=== PATIENT | female | born 1975 | race Caucasian/White ===

== ENCOUNTER → 2018-12-17 13:59 | Outpatient (CLI) | payer OTHER, SELFPAY ==
[2017-08-31 16:52] VITALS: BMI 20.5
[2018-12-17 15:54] LABS: Absolute Lymphocyte Count 2.11 X10^3/ul (0.83-4.51); Absolute Neutrophil Count 2.8 X10^3/uL (2.0-7.7); Basophil# 0.03 X10^3/uL; Basophil% 0.5 % (0-1); Eosinophil# 0.14 X10^3/uL; Eosinophils% 2.6 % (0-5); Hematocrit 44.5 % (37-47); Hemoglobin 14.2 g/dl (12.0-15.0); Lymphocyte # 2.11 X10^3/ul (4.0); Lymphocyte % 38.5 % (19-41); Mean Corp Hgb Conc 31.9 g/gl (32-36); Mean Corpuscular Hgb 28.9 pg (27.0-32.0); Mean Corpuscular Volume 90.4 fL (81-99); Mean Platelet Vol. 10.7 fl (6.2-12.0); Monocyte# 0.39 X10^3/uL; Monocyte% 7.1 % (0-10); Neutrophil % 51.1 % (47-70); POSITIVE COUNT NO; POSITIVE DIFFERENTIAL NO; POSITIVE MORPHOLOGY NO; Platelet Count 260 K/mm3 (150-450); RBC Distribution Width CV 13.3 % (11.6-14.6); Red Blood Count 4.92 M/mm3 (4.2-5.4); White Blood Count 5.5 K/mm3 (4.4-11.0)
[2018-12-17 16:16] LABS: Anion Gap 11 (5-15); BUN 16 mg/dL (7-18); BUN/Creat Ratio 16.5 RATIO (10-20); Calcium,Total 8.6 mg/dL (8.5-10.1); Chloride 114 mmol/L (98-107); Creatinine, Serum 0.97 mg/dL (0.55-1.02); EST Glomerular Filtration Rate 66 mL/min (>60); Est Glom Filt Rate - Afr Amer 80 mL/min (>60); Glucose 89 mg/dL (74-106); Potassium 3.9 mmol/L (3.5-5.1); Prothrombin Time (Protime)PT. 12.5 SECONDS (11.7-14.9); Sodium Level 143 mmol/L (136-145)
== END ==
PROVIDERS: Family Provider Family Medicine; PCP Family Medicine; Referring Provider Psychiatry & Neurology Neurology; Visit Provider Psychiatry & Neurology Neurology
DX: G43.111 Migraine with aura, intractable, with status migrainosus (principal)
CPT/HCPCS: 36415; 80048; 85025; 85610

== ENCOUNTER 2018-12-25 19:43 | Emergency (ER) | payer OTHER, SELFPAY ==
[2018-12-25 19:44] VITALS: BP 129/76; PULSE 64; RESP 15; TEMP 37; O2SAT 100; BMI 20.2
--- NOTE | 2018-12-25 21:41 | ED.VISSUMM ---
- ER Visit Summary Date of Service: 12/25/18 Chief Complaint: [Rash] History of Present Illness: The patient is a 43 F [presents the emergency department complaint of a rash that started yesterday. Patient states that 2 days ago she had a port placed in her right chest because she gets infusions for her migraines on a monthly basis and she has poor veins. Patient started to notice faint erythematous rash to the left side of her neck and also between her breasts and underneath both breasts. Area is slightly pruritic. Patient is not noticed any rash or erythema or warmth around the port site. She denies any new soaps or detergents. Patient does not believe that she received any type of antibiotics. Patient states that she did receive fentanyl and Versed for sedation as well as a dose of Valium.] Physical Examination: [HEENT-PERRLA, EOMI. Cranial nerves II through XII grossly intact. TMs clear. Mucous membranes moist. No adenopathy. Cardiovascular-regular rate and rhythm without murmur or ectopy Lungs-clear to auscultation, chest wall stable without crepitus or subcu emphysema Abdomen-normoactive bowel sounds, soft, nontender, no rebound or rigidity, no peritoneal signs. Skin exam-in her right chest there is a recent port that has been placed without evidence of infection. There is no erythema or warmth surrounding the port. Patient does have a fine erythematous macular rash between the breasts and underneath both breasts. Patient also has a similar appearing rash to the left posterior neck. The rash is not present on the extremities or her back. Extremities-intact ?4, normal range of motion, normal pulses, atraumatic] Test Results: [None indicated] Emergency Department Course and Treatment: [This point I do not feel any treatments indicated. I suspect she may have a contact dermatitis that may be related to the cleansing prep that they used on the skin or possibly adhesive from the draping. I am not convinced this is a drug eruption rash. There is no evidence of cellulitis.] Treatment Plan: [Advised patient using Benadryl for itching and following up with primary care physician within next 5-7 days.] Disposition: [Discharged home in stable condition] Impression: [Contact dermatitis] This note was generated with [employer]Echelleation software. It may contain incorrect words, spelling, and punctuation that were not noted in review of the chart prior to signing ED Disposition - Plan for ED Patient: Referrals: Nikky Pillai MD [Primary Care Provider] -
--- NOTE | 2018-12-25 21:45 | ED.DEP ---
ED Disposition - Plan for ED Patient: Instructions: ED Dermatitis Contact Referrals: Nikky Pillai MD [Primary Care Provider] - 5-7 Days
== END 2018-12-25 21:55 | disposition home or self-care (01) ==
PROVIDERS: Emergency Provider Emergency Medicine; Family Provider Family Medicine; PCP Family Medicine
DX: L25.9 Unspecified contact dermatitis, unspecified cause (principal); G43.909 Migraine, unspecified, not intractable, without status migrainosus; Z79.82 Long term (current) use of aspirin; Z79.891 Long term (current) use of opiate analgesic; Z79.899 Other long term (current) drug therapy
CPT/HCPCS: 99282

== ENCOUNTER 2019-01-09 14:37 | Emergency (ER) | payer OTHER, SELFPAY ==
[2019-01-09 14:37] VITALS: BP 122/81; PULSE 93; RESP 16; TEMP 37.2; O2SAT 95; BMI 19.7
--- NOTE | 2019-01-09 15:17 | ED.VIS.GEN ---
History of Present Illness Chief Complaint: Abd Pain Detail of Chief Complaint: Rectal pain that radiates into the pelvis/abdomen Informant: Patient Onset: Yesterday Context: Sudden Onset Timing: Continuous Quality: Pain Location: Rectal and lower abdomen Current Severity: Mild Maximum Severity: Moderate Worsened by: Standing upright Relieved by: Improves in position Associated Symptoms: None Narrative: Patient is a 43-year-old woman whose last normal menstrual period was December 27 - December 31, which is normal for her. She has no symptoms of . She states she has had 3 loose stools a day for approximately 2 months. She has not noted blood or mucus. She denies fever, chills or night sweats. Denies weight gain or weight loss. She denies dysuria, frequency, urgency or hematuria. She does have history of ovarian cyst. There is no history of ectopic or endometriosis. There is no history of trauma. She denies hematemesis, melena hematochezia. She denies history of hemorrhoids. There is a family history of ulcerative colitis, father. There is no radiation to the shoulders, back or flank. There is no radiation downward. She denies any saddle paresthesia. Prior similar symptoms: No Recent Illness/Hospitalization: No - Past Medical History (1) Choledocholithiasis Status: Acute (2) Cholelithiasis Status: Acute (3) History of kidney stones Status: Chronic (4) Migraine headache Status: Chronic Past Medical History - Allergies and Home Meds Allergies/Adverse Reactions: Allergies acetaminophen [From Vicodin] Adverse Reaction (Verified 01/09/19 14:39) Other erythromycin base [Erythromycin Base] Adverse Reaction (Verified 01/09/19 14:39) Nausea hydrocodone bitartrate [From Vicodin] Adverse Reaction (Verified 01/09/19 14:39) Other Primary Care Physician: Nikky Pillai MD [Primary Care Provider] - Prior records reviewed: Yes Surgical History: cholecystectomy, - - Tubal ligation, surgical removal of left kidney stone. Lives: Spouse/ Significant Other Smoking Status: Never smoker Drugs: None - Family History Maternal Family History: Reports: No pertinent history Paternal Family History: Reports: No pertinent history Review of Systems General: Denies: Chills, Fever, Malaise, Sweats, Weight loss Eyes: Denies: Visual changes - bilaterally, Blurred Vision - bilaterally, Diplopia ENT: Denies: Rhinorrhea, Sore throat Cardiovascular: Denies: Chest pain, Palpitations Respiratory: Denies: Dyspnea, Cough, Dyspnea on exertion Gastrointestinal: Reports: Abdominal pain, Diarrhea - 3 loose stools per day for 2-3 months. Denies: Nausea, Vomiting, Constipation, Melena, Hematochezia Genitourinary: Denies: Dysuria, Hematuria, Frequency Musculoskeletal: Denies: Back pain, Extremity Pain Skin: Denies: Rash, Wounds Neurological: Denies: Headache, Weakness, Numbness Hematologic: Denies: Easy bruising, Easy bleeding Physical Exam Vital Signs/Narrative: Vital Signs Temp Pulse Resp BP Pulse Ox 01/09/19 14:37 98.9 F 93 16 122/81 H 95 General: Well nourished, Well developed, No Acute Distress Head: Normocephalic, Atraumatic Eyes: Perrl, EOMI ENT: Moist mucous membranes, No rhinorrhea Neck: Supple, Nontender Cardiovascular: Regular rate, Regular rhythm, No murmurs Respiratory: No distress, CTA bilaterally, Chest nontender Abdomen: Soft, Nontender, Nondistended, Normal bowel sounds Rectal: Tenderness - Mild discomfort. There is no fissures, fistulas or hemorrhoids noted. Material in vault was brown watery without mucus or blood. There is no palpable masses or irregularity. Back: Nontender, Normal Inspection. Negative for: CVA tenderness Extremities: Nontender, No edema Skin: Normal color, No rash Neurological: Alert, Oriented x3, Cranial nerves II-XII grossly intact, Normal Strength, Normal Sensation Psychological: Normal affect, Normal Mood Diagnostic/Tx/Re-eval Impressions Abdomen/Pelvis CT 01/09/19 16:54 IMPRESSION: Mild nonspecific dilatation of small bowel and colon to the level of the rectum with a gas-filled rectosigmoid colon and semisolid stool present throughout most of the colon. Negative for wall thickening. Negative for obstructing lesion. Negative for diverticulosis or other inflammatory changes. A normal appendix is identified. Negative for rectal mass or fluid collection. Normal kidneys bilaterally and bladder. Probably status post cholecystectomy with moderate compensatory dilatation of the common bile duct. Uterus tilted to the left. Negative for pelvic mass or free fluid of the pelvis. Electronically Signed: Aubree Devries MD at 19:05 EDT , Service support , 01/09/19 16:54 Abdomen/Pelvis WITH Contrast [CT] Stat Laboratory Results 01/09/19 01/09/19 01/09/19 15:40 15:40 15:40 WBC 5.5 RBC 4.14 L Hgb 12.3 Hct 36.8 L MCV 88.9 MCH 29.7 MCHC 33.4 RDW 13.7 RDW Differential 44.8 H Plt Count 165 MPV 9.8 Immature Gran % (Auto) 0.000 Neut % (Auto) 53.3 Lymph % (Auto) 34.4 [place] % (Auto) 8.4 Eos % (Auto) 3.5 Baso % (Auto) 0.4 Absolute Neuts (auto) 2.9 Absolute Lymphs (auto) 1.89 Total Counted Not Reportable Sodium 144 Potassium 3.7 Chloride 115 H Carbon Dioxide 21.0 Anion Gap 8 BUN 17 Creatinine 0.92 Estim Creat Clear Calc 60.98 Est GFR (MDRD) Af Amer 86 Est GFR (MDRD) Non-Af 71 BUN/Creatinine Ratio 18.5 Glucose 82 Calcium 8.7 Urine Color Yellow Urine Clarity Cloudy Urine pH 8.0 Ur Specific [place] 1.015 Urine Protein Negative Urine Glucose (UA) Normal Urine Ketones Negative Urine Occult Blood Negative Urine Nitrite Negative Urine Bilirubin Negative Urine Urobilinogen Normal Ur Leukocyte Esterase Negative Urine RBC 0 SEEN Urine WBC 0 SEEN Ur Squamous Epith Cells 0 SEEN Urine Bacteria 2+ Urine Mucus 0 SEEN Macro is negative for leukoesterase and nitrites and micro is negative for WBCs. Therefore will not treat for UTI. - Medical Decision Making Patient has no alarming symptoms. Will obtain BMP and CBC to evaluate H&H, white count and renal function in the event a CT of the abdomen/pelvis is required or needed to evaluate patient's symptoms. She did receive Bentyl for her discomfort. I was informed on melter assistant film the patient has significant amount of gas throughout the small bowel. Abdomen was added to the pelvis. There is significant amount of gas with no evidence of obstruction, inflammatory changes. The appendix was seen and normal. There is no fluid in the pelvis. Since patient reports diarrhea for 2-3 months she will need to follow-up with gastroneurologist for colonoscopy. ED Disposition - Plan for ED Patient: Disposition: Home or Assisted Living Diagnosis: Abdominal pain, acute, bilateral lower quadrant, Chronic diarrhea of unknown origin, Bacteria in urine Instructions: ED Abdominal Pain Unkn Cause Prescriptions: Dicyclomine HCl [Bentyl] 20 mg PO TIDAC #20 cap Referrals: Nikky Pillai MD [Primary Care Provider] - 5-7 Days Additional Instructions: You need to follow-up with your primary care doctor for referral to business services tech or physician who performs colonoscopy to evaluate your chronic diarrhea. The cause of your pain is unknown.
[2019-01-09] MEDS: Dicyclomine 10 MG Capsule 20 MG PO (15:20)
--- NOTE | 2019-01-09 15:21 | ED.DCSUM_ITS ---
History of Present Illness Chief Complaint: Abd Pain Detail of Chief Complaint: Rectal pain that radiates into the pelvis/abdomen Informant: Patient Onset: Yesterday Context: Sudden Onset Timing: Continuous Quality: Pain Location: Rectal and lower abdomen Current Severity: Mild Maximum Severity: Moderate Worsened by: Standing upright Relieved by: Improves in position Associated Symptoms: None Narrative: Patient is a 43-year-old woman whose last normal menstrual period was December 27 - December 31, which is normal for her. She has no symptoms of . She states she has had 3 loose stools a day for approximately 2 months. She has not noted blood or mucus. She denies fever, chills or night sweats. Denies weight gain or weight loss. She denies dysuria, frequency, urgency or hematuria. She does have history of ovarian cyst. There is no history of ectopic or endometriosis. There is no history of trauma. She denies hematemesis, melena hematochezia. She denies history of hemorrhoids. There is a family history of ulcerative colitis, father. There is no radiation to the shoulders, back or flank. There is no radiation downward. She denies any saddle paresthesia. Prior similar symptoms: No Recent Illness/Hospitalization: No - Past Medical History (1) Choledocholithiasis Status: Acute (2) Cholelithiasis Status: Acute (3) History of kidney stones Status: Chronic (4) Migraine headache Status: Chronic Past Medical History - Allergies and Home Meds Allergies/Adverse Reactions: Allergies acetaminophen [From Vicodin] Adverse Reaction (Verified 01/09/19 14:39) Other erythromycin base [Erythromycin Base] Adverse Reaction (Verified 01/09/19 14:39) Nausea hydrocodone bitartrate [From Vicodin] Adverse Reaction (Verified 01/09/19 14:39) Other Primary Care Physician: Nikky Pillai MD [Primary Care Provider] - Prior records reviewed: Yes Surgical History: cholecystectomy, - - Tubal ligation, surgical removal of left kidney stone. Lives: Spouse/ Significant Other Smoking Status: Never smoker Drugs: None - Family History Maternal Family History: Reports: No pertinent history Paternal Family History: Reports: No pertinent history Review of Systems General: Denies: Chills, Fever, Malaise, Sweats, Weight loss Eyes: Denies: Visual changes - bilaterally, Blurred Vision - bilaterally, Diplopia ENT: Denies: Rhinorrhea, Sore throat Cardiovascular: Denies: Chest pain, Palpitations Respiratory: Denies: Dyspnea, Cough, Dyspnea on exertion Gastrointestinal: Reports: Abdominal pain, Diarrhea - 3 loose stools per day for 2-3 months. Denies: Nausea, Vomiting, Constipation, Melena, Hematochezia Genitourinary: Denies: Dysuria, Hematuria, Frequency Musculoskeletal: Denies: Back pain, Extremity Pain Skin: Denies: Rash, Wounds Neurological: Denies: Headache, Weakness, Numbness Hematologic: Denies: Easy bruising, Easy bleeding Physical Exam Vital Signs/Narrative: Vital Signs Temp Pulse Resp BP Pulse Ox 01/09/19 14:37 98.9 F 93 16 122/81 H 95 General: Well nourished, Well developed, No Acute Distress Head: Normocephalic, Atraumatic Eyes: Perrl, EOMI ENT: Moist mucous membranes, No rhinorrhea Neck: Supple, Nontender Cardiovascular: Regular rate, Regular rhythm, No murmurs Respiratory: No distress, CTA bilaterally, Chest nontender Abdomen: Soft, Nontender, Nondistended, Normal bowel sounds Rectal: Tenderness - Mild discomfort. There is no fissures, fistulas or hemorrhoids noted. Material in vault was brown watery without mucus or blood. There is no palpable masses or irregularity. Back: Nontender, Normal Inspection. Negative for: CVA tenderness Extremities: Nontender, No edema Skin: Normal color, No rash Neurological: Alert, Oriented x3, Cranial nerves II-XII grossly intact, Normal Strength, Normal Sensation Psychological: Normal affect, Normal Mood Diagnostic/Tx/Re-eval Impressions Abdomen/Pelvis CT 01/09/19 16:54 IMPRESSION: Mild nonspecific dilatation of small bowel and colon to the level of the rectum with a gas-filled rectosigmoid colon and semisolid stool present throughout most of the colon. Negative for wall thickening. Negative for obstructing lesion. Negative for diverticulosis or other inflammatory changes. A normal appendix is identified. Negative for rectal mass or fluid collection. Normal kidneys bilaterally and bladder. Probably status post cholecystectomy with moderate compensatory dilatation of the common bile duct. Uterus tilted to the left. Negative for pelvic mass or free fluid of the pelvis. Electronically Signed: Aubree Devries MD at 19:05 EDT , Service support , 01/09/19 16:54 Abdomen/Pelvis WITH Contrast [CT] Stat Laboratory Results 01/09/19 01/09/19 01/09/19 15:40 15:40 15:40 WBC 5.5 RBC 4.14 L Hgb 12.3 Hct 36.8 L MCV 88.9 MCH 29.7 MCHC 33.4 RDW 13.7 RDW Differential 44.8 H Plt Count 165 MPV 9.8 Immature Gran % (Auto) 0.000 Neut % (Auto) 53.3 Lymph % (Auto) 34.4 [place] % (Auto) 8.4 Eos % (Auto) 3.5 Baso % (Auto) 0.4 Absolute Neuts (auto) 2.9 Absolute Lymphs (auto) 1.89 Total Counted Not Reportable Sodium 144 Potassium 3.7 Chloride 115 H Carbon Dioxide 21.0 Anion Gap 8 BUN 17 Creatinine 0.92 Estim Creat Clear Calc 60.98 Est GFR (MDRD) Af Amer 86 Est GFR (MDRD) Non-Af 71 BUN/Creatinine Ratio 18.5 Glucose 82 Calcium 8.7 Urine Color Yellow Urine Clarity Cloudy Urine pH 8.0 Ur Specific [place] 1.015 Urine Protein Negative Urine Glucose (UA) Normal Urine Ketones Negative Urine Occult Blood Negative Urine Nitrite Negative Urine Bilirubin Negative Urine Urobilinogen Normal Ur Leukocyte Esterase Negative Urine RBC 0 SEEN Urine WBC 0 SEEN Ur Squamous Epith Cells 0 SEEN Urine Bacteria 2+ Urine Mucus 0 SEEN Macro is negative for leukoesterase and nitrites and micro is negative for WBCs. Therefore will not treat for UTI. - Medical Decision Making Patient has no alarming symptoms. Will obtain BMP and CBC to evaluate H&H, white count and renal function in the event a CT of the abdomen/pelvis is required or needed to evaluate patient's symptoms. She did receive Bentyl for her discomfort. I was informed on imaging analyst film the patient has significant amount of gas throughout the small bowel. Abdomen was added to the pelvis. There is significant amount of gas with no evidence of obstruction, inflammatory changes. The appendix was seen and normal. There is no fluid in the pelvis. Since patient reports diarrhea for 2-3 months she will need to follow-up with gastroneurologist for colonoscopy. ED Disposition - Plan for ED Patient: Disposition: Home or Assisted Living Diagnosis: Abdominal pain, acute, bilateral lower quadrant, Chronic diarrhea of unknown origin, Bacteria in urine Instructions: ED Abdominal Pain Unkn Cause Prescriptions: Dicyclomine HCl [Bentyl] 20 mg PO TIDAC #20 cap Referrals: Nikky Pillai MD [Primary Care Provider] - 5-7 Days Additional Instructions: You need to follow-up with your primary care doctor for referral to process safety engineer or physician who performs colonoscopy to evaluate your chroni c diarrhea. The cause of your pain is unknown.
[2019-01-09 15:55] LABS: Absolute Lymphocyte Count 1.89 X10^3/ul (0.83-4.51); Absolute Neutrophil Count 2.9 X10^3/uL (2.0-7.7); Basophil# 0.02 X10^3/uL; Basophil% 0.4 % (0-1); Eosinophil# 0.19 X10^3/uL; Eosinophils% 3.5 % (0-5); Hematocrit 36.8 % (37-47); Hemoglobin 12.3 g/dl (12.0-15.0); Lymphocyte # 1.89 X10^3/ul (4.0); Lymphocyte % 34.4 % (19-41); Mean Corp Hgb Conc 33.4 g/gl (32-36); Mean Corpuscular Hgb 29.7 pg (27.0-32.0); Mean Corpuscular Volume 88.9 fL (81-99); Mean Platelet Vol. 9.8 fl (6.2-12.0); Monocyte# 0.46 X10^3/uL; Monocyte% 8.4 % (0-10); Neutrophil # 2.93 X10^3/uL (2.7-7.7); Neutrophil % 53.3 % (47-70); POSITIVE COUNT NO; POSITIVE DIFFERENTIAL NO; POSITIVE MORPHOLOGY NO; Platelet Count 165 K/mm3 (150-450); RBC Distribution Width CV 13.7 % (11.6-14.6); RBC Distribution Width SD 44.8 fl (35.1-43.9); Red Blood Count 4.14 M/mm3 (4.2-5.4); White Blood Count 5.5 K/mm3 (4.4-11.0)
[2019-01-09 16:12] LABS: Mucous, Urine 0 SEEN /hpf (<or=2+); Red Blood Cells-Urine 0 SEEN /hpf (0-5); Squamous Epithelial Cells - UA 0 SEEN /hpf (5-10); White Blood Cells 0 SEEN /hpf (0-5)
[2019-01-09 16:14] LABS: Color, Urine Yellow (Yellow); Glucose, Dipstick Normal (Normal); Ketone-Dipstick Negative (Negative); Leukocyte Esterase-Dipstick Negative /ul (Negative); Nitrite-Dipstick Negative (Negative); Occult Blood-Urine Negative /ul (Negative); Protein-Dipstick Negative (Negative); Specific Gravity, Urine 1.015 (1.002-1.030); Urine Bilirubin Dipstick Negative (Negative); Urine Clarity Cloudy (Clear); Urine Urobilinogen Normal (Normal)
[2019-01-09 16:21] LABS: Anion Gap 8 (5-15); BUN 17 mg/dL (7-18); BUN/Creat Ratio 18.5 RATIO (10-20); Bacteria 2+ /hpf (None Seen); Calcium,Total 8.7 mg/dL (8.5-10.1); Chloride 115 mmol/L (98-107); Creatinine, Serum 0.92 mg/dL (0.55-1.02); EST Glomerular Filtration Rate 71 mL/min (>60); Est Glom Filt Rate - Afr Amer 86 mL/min (>60); Estimated Creatinine Clearance 60.98 ml/min; Glucose 82 mg/dL (74-106); Potassium 3.7 mmol/L (3.5-5.1); Sodium Level 144 mmol/L (136-145)
[2019-01-09 16:47] VITALS: BP 99/66; PULSE 94; O2SAT 93
--- NOTE | 2019-01-09 16:54 | CT_ITS ---
STUDY: CT ABDOMEN AND PELVIS WITH CONTRAST REASON FOR EXAM: Female, 43 years old. Rectal pain and tenderness RADIATION DOSAGE (If Supplied By Facility): CTDIvol = ( 7.06 ) mGy, DLP = ( 345.26 ) mGycm TECHNIQUE: Transaxial images were obtained from the dome of the diaphragm to the symphysis pubis without oral contrast. Isovue 300 100 IV was administered. Sagittal and coronal images were reconstructed. Individualized dose optimization techniques were used for this CT. COMPARISON: Prior abdomen and pelvic CT exam of July 24, 2016 FINDINGS: Stable minimal nodule at the lateral left lung base. The visualized portions of the heart are within normal limits. Normal liver. Contracted or absent gallbladder. Mildly dilated common bile duct probably status post cholecystectomy. Normal spleen. Normal pancreas. Normal bilateral adrenal glands. Normal right kidney. Normal left kidney. Normal visualized stomach. Mild diffuse dilatation of the small bowel. Mild diffuse dilatation of the colon with gaseous distention of the rectosigmoid colon. Most of the stool in the colon appears semisolid. The appendix is visualized and appears normal. Normal abdominal aorta. Normal inferior vena cava. Normal retroperitoneum. Normal urinary bladder. Uterus tilted to the left. Negative for pelvic mass or free fluid of the pelvis. Normal abdominal wall. Normal osseous structures. CT/Abdomen/Pelvis WITH Contrast IMPRESSION: Mild nonspecific dilatation of small bowel and colon to the level of the rectum with a gas-filled rectosigmoid colon and semisolid stool present throughout most of the colon. Negative for wall thickening. Negative for obstructing lesion. Negative for diverticulosis or other inflammatory changes. A normal appendix is identified. Negative for rectal mass or fluid collection. Normal kidneys bilaterally and bladder. Probably status post cholecystectomy with moderate compensatory dilatation of the common bile duct. Uterus tilted to the left. Negative for pelvic mass or free fluid of the pelvis. Electronically Signed: Aubree Devries MD at 19:05 EDT , Service support ,
[2019-01-09] MEDS: Morphine 4 MG/ML Syringe IV (17:15)
[2019-01-09] MEDS: Ondansetron 4 MG/2 ML Vial IV (17:15)
[2019-01-09 17:20] VITALS: BP 101/72; PULSE 61
[2019-01-09 19:42] VITALS: BP 99/60; PULSE 57; RESP 16
== END 2019-01-09 19:43 | disposition home or self-care (01) ==
PROVIDERS: Emergency Provider Emergency Medicine; Family Provider Family Medicine; PCP Family Medicine
DX: R10.30 Lower abdominal pain, unspecified (principal); R19.7 Diarrhea, unspecified; R82.71 Bacteriuria; G43.909 Migraine, unspecified, not intractable, without status migrainosus; Z87.442 Personal history of urinary calculi; Z79.82 Long term (current) use of aspirin; Z79.891 Long term (current) use of opiate analgesic; Z79.899 Other long term (current) drug therapy
CPT/HCPCS: 36591; 74177; 80048; 81001; 85025; 96374; 96375; 99283; A4216; J2405

== ENCOUNTER 2019-04-16 12:52 | Emergency (ER) | payer OTHER, SELFPAY ==
[2019-04-16 12:53] VITALS: BP 114/70; PULSE 69; RESP 16; TEMP 36.7; O2SAT 99; BMI 19.3
--- NOTE | 2019-04-16 13:08 | CT_ITS ---
STUDY: CT BRAIN WITHOUT CONTRAST REASON FOR EXAM: Female, 43 years old. Migraine RADIATION DOSAGE (If Supplied By Facility): CTDIvol = ( 44.99 ) mGy, DLP = ( 711.75 ) mGycm TECHNIQUE: Transaxial CT imaging of the brain was performed without administration of intravenous contrast material. Individualized dose optimization techniques were used for this CT. COMPARISON: CT 05/11/15. FINDINGS: Normal soft tissue structures. Normal calvarium. Normal size ventricles and extra-axial spaces for the patient's age. Normal white matter tracts of the cerebral hemispheres. Normal basal ganglia and thalami. Normal brainstem. Normal cerebellum. There is no intracranial hemorrhage. There are no findings of an acute ischemic infarction. Normal visualized paranasal sinuses. CT/Brain/Head without Contrast IMPRESSION: Normal unenhanced CT scan of the brain. Electronically Signed: Víctor Tarango, at 14:28 EDT Tel , Service support ,
--- NOTE | 2019-04-16 13:11 | ED.DCSUM_ITS ---
- ER Visit Summary Date of Service: 04/16/19 Chief Complaint: Migraine History of Present Illness: The patient is a 43 F who has a history of migraine that follows with neurology presents to the emergency department with migraine headache. States normally, her headache is behind her right eye. This headache started 2 days ago. She described photophobia, blurry vision, and nausea. She states this is her normal migraine sensation. She was concerned because she also had pain a little bit higher up in her head which she does not normally have. She saw her primary care in the office yesterday. She got Phenergan and Nubain with some improvement but then the headache returned. She denies any trouble speech or swallowing. She denies any weakness. She denies any fevers or chills. Physical Examination: Well-appearing patient is in no acute distress. Head is normocephalic, atraumatic. Pupils equal round reactive, extraocular muscles intact. There is no temporal artery tenderness. There is no vesicular rash. Neck supple. Kernig's and Brudzinski's are negative. Heart regular rate and rhythm. Lungs clear, chest nontender. Abdomen soft, nontender, nondistended. Neuro exam displays no focal or lateralizing deficit. 2+ symmetric lower extremity reflexes. No clonus. No ataxia or gait abnormality. Test Results: [] Emergency Department Course and Treatment: The patient presents with migraine he adache. She states was mildly different because it was involving a larger part of her head. Her neuro exam is reassuring. As she states there was some differences in it, I did obtain CT imaging. This was unremarkable. The patient was treated with fluids, Toradol, Benadryl, Compazine. She had some improvement in her headache but was still having persistent headache. I did discuss with her options with her. She was agreeable to Decadron and Depakote. This is currently infusing. Patient is resting comfortably. I do feel that as long she continues to have improvement, the patient can safely be discharged. She is comfortable with this plan of care. Treatment Plan: [] Disposition: Discharge Impression: 1. Migraine headache This note was generated with [employer] software. It may contain incorrect words, spelling, and punctuation that were not noted in review of the chart prior to signing ED Disposition - Plan for ED Patient: Instructions: HEADACHE, Migraine (Classical) Referrals: Nikky Pillai MD [Primary Care Provider] -
[2019-04-16] MEDS: proCHLORPERazine 10 MG/2 ML Vial IV (13:35)
[2019-04-16] MEDS: DiphenhydrAMINE 50 MG/ML Syringe IV (13:35)
[2019-04-16] MEDS: 0.9% Normal Saline 1,000 ML 999 ML IV (13:35)
[2019-04-16] MEDS: Ketorolac 30 MG/ML Syringe IV (13:35)
[2019-04-16] MEDS: dexAMETHasone 10 MG/ML Vial IV (14:34)
[2019-04-16 15:58] VITALS: BP 96/59; PULSE 59; RESP 16; O2SAT 99
== END 2019-04-16 15:59 | disposition home or self-care (01) ==
LOC: ED 13:11
PROVIDERS: Emergency Provider Emergency Medicine; Family Provider Family Medicine; PCP Family Medicine
DX: G43.909 Migraine, unspecified, not intractable, without status migrainosus (principal)
CPT/HCPCS: 70450; 96361; 96365; 96375; 99284; J7030; A4216

== ENCOUNTER 2019-11-11 12:42 | Observation (INO) | payer OTHER, SELFPAY ==
[2019-04-22 09:33] VITALS: BMI 19.3
[2019-11-11 12:42] VITALS: BP 126/89; PULSE 85; RESP 18; TEMP 37.4; O2SAT 97; BMI 19.8
--- NOTE | 2019-11-11 13:06 | ED.DCSUM_ITS ---
History of Present Illness Chief Complaint: Flank Pain Detail of Chief Complaint: Right flank pain Informant: Patient Onset: Weeks Context: Gradual Onset Timing: Waxes and wanes Current Severity: Moderate Maximum Severity: Moderate Narrative: Presents with right flank pain that is been ongoing for the past 2 weeks. She was seen at [place] emergency room 1 week ago. She was found to have a 9 mm right-sided kidney stone. Last weekend she presented to [facility] for continued pain. She was treated in the emergency room and discharged. Patient was seen by Dr. Greene on Friday and is scheduled to have surgery tomorrow. She presents to the ER today due to continued uncontrolled pain. She is currently on Percocet. She is been taking Aleve, last dose was yesterday. - Past Medical History (1) History of kidney stones Status: Chronic (2) Migraine headache Status: Chronic Past Medical History - Allergies and Home Meds Allergies/Adverse Reactions: Allergies erythromycin base [Erythromycin Base] Adverse Reaction (Verified 11/11/19 12:47) Nausea hydrocodone bitartrate [From Vicodin] Adverse Reaction (Verified 11/11/19 12:47) Other Primary Care Physician: Nikky Pillai MD [Primary Care Provider] - Doctors: Dr. Greene Prior records reviewed: Yes Surgical History: cholecystectomy, - - Tubal ligation, surgical removal of left kidney stone. Smoking Status: Never smoker - Family History Maternal Family History: Family History (Last Updated 04/22/19 @ 09:33 by Shandra De La O) Father MVP (mitral valve prolapse) Family History: Reports: No pertinent history Paternal Family History: Family History (Last Updated 04/22/19 @ 09:33 by Shandra De La O) Father MVP (mitral valve prolapse) Family History: Reports: No pertinent history Review of Systems General: Denies: Chills, Fever Eyes: Denies: Visual changes - bilaterally ENT: Denies: Bilateral ear pain Cardiovascular: Denies: Chest pain Respiratory: Denies: Dyspnea Gastrointestinal: Reports: Abdominal pain. Denies: Vomiting Genitourinary: Denies: Dysuria Musculoskeletal: Denies: Extremity Pain Skin: Denies: Rash Neurological: Denies: Headache Allergy: Denies: Uticaria Physical Exam Vital Signs/Narrative: Vital Signs Temp Pulse Resp BP Pulse Ox 11/11/19 12:42 99.4 F H 85 18 126/89 H 97 Inital Vital Signs reviewed: Yes General: Well nourished, Well developed Head: Normocephalic ENT: Moist mucous membranes Neck: Supple Cardiovascular: Regular rate, Regular rhythm Respiratory: No distress, CTA bilaterally Abdomen: Soft, Nontender Back: CVA tenderness Skin: Normal color, No rash Neurological: Alert, Oriented x3 Psychological: Normal affect Diagnostic/Tx/Re-eval 11/11/19 14:05 KUB [Abdomen Single View] [RAD] Stat Laboratory Results 11/11/19 11/11/19 13:25 13:25 WBC 5.1 RBC 4.51 Hgb 13.0 Hct 41.4 MCV 91.8 MCH 28.8 MCHC 31.4 L RDW Std Deviation 42.9 RDW Coeff of Brian 12.9 Plt Count 160 MPV 9.8 Immature Gran % (Auto) 0.200 Neut % (Auto) 58.6 Lymph % (Auto) 31.7 [place] % (Auto) 6.5 Eos % (Auto) 2.4 Baso % (Auto) 0.6 Absolute Neuts (auto) 3.0 Absolute Lymphs (auto) 1.60 Nucleated RBC % 0 Sodium 140 Potassium 3.6 Chloride 114 H Carbon Dioxide 21.0 Anion Gap 5 BUN 14 Creatinine 0.87 Estim Creat Clear Calc 64.22 Est GFR (MDRD) Af Amer 91 Est GFR (MDRD) Non-Af 75 BUN/Creatinine Ratio 16.1 Glucose 82 Calcium 8.5 - Medical Decision Making She was given 4 mg of morphine and 15 mg of Toradol on arrival. She is given IV fluids. KUB reveals significant bowel gas and I am unable to definitely visualize a stone. Lab work is unremarkable. Patient states her pain is un changed. I will speak with Dr. Greene as well as hospitalist for admission for pain control. ED Disposition - Plan for ED Patient: Disposition: Acute Care Hospital [facility] Diagnosis: Right flank pain, Kidney stone on right side Referrals: Nikky Pillai MD [Primary Care Provider] -
[2019-11-11 13:35] LABS: Basophil# 0.03 X10^3/uL; Basophil% 0.6 % (0-1); Eosinophil# 0.12 X10^3/uL; Eosinophils% 2.4 % (0-5); Hematocrit 41.4 % (37-47); Lymphocyte % 31.7 % (19-41); Mean Corp Hgb Conc 31.4 g/dL (32-36); Mean Corpuscular Hgb 28.8 pg (27.0-32.0); Mean Corpuscular Volume 91.8 fL (81-99); Mean Platelet Vol. 9.8 fl (6.2-12.0); Monocyte# 0.33 X10^3/uL; Monocyte% 6.5 % (0-10); NRBC Flagged by Analyzer 0 % (0-5); Neutrophil # 2.96 X10^3/uL (2.7-7.7); Neutrophil % 58.6 % (47-70); Platelet Count 160 K/mm3 (150-450); RBC Distribution Width CV 12.9 % (11.6-14.6); RBC Distribution Width SD 42.9 fl (35.1-43.9); Red Blood Count 4.51 M/mm3 (4.2-5.4); White Blood Count 5.1 K/mm3 (4.4-11.0)
[2019-11-11] MEDS: Ondansetron 4 MG/2 ML Vial IV (13:46)
[2019-11-11] MEDS: Ketorolac 30 MG/ML Syringe 15 MG IV (13:46)
[2019-11-11] MEDS: Morphine 4 MG/ML Syringe IV (13:47)
[2019-11-11 13:49] LABS: Anion Gap 5 (5-15); BUN 14 mg/dL (7-18); BUN/Creat Ratio 16.1 RATIO (10-20); Calcium,Total 8.5 mg/dL (8.5-10.1); Chloride 114 mmol/L (98-107); Creatinine, Serum 0.87 mg/dL (0.55-1.02); EST Glomerular Filtration Rate 75 mL/min (>60); Est Glom Filt Rate - Afr Amer 91 mL/min (>60); Estimated Creatinine Clearance 64.22 ml/min; Glucose 82 mg/dL (74-106); Potassium 3.6 mmol/L (3.5-5.1); Sodium Level 140 mmol/L (136-145)
--- NOTE | 2019-11-11 14:05 | RAD_ITS ---
STUDY: X-RAY - ABDOMEN/PELVIS REASON FOR EXAM: Female, 44 years old. KIDNEY STONES TECHNIQUE: Single AP view of the abdomen / pelvis. COMPARISON: None. FINDINGS: There is a 6.7 mm x 5 mm metallic density overlying the left upper quadrant. A similar-appearing density seen in the left hemipelvis. This most likely is secondary to tubal ligation clips. Gas is seen within nondilated small bowel as well as the colon. There is no demonstrated free abdominal air. The visualized liver, spleen and kidneys are grossly normal in size and morphology. Normal soft tissue structures. Normal visualized osseous structures. RAD/Abdomen Single View IMPRESSION: Metallic density in the left hemipelvis most likely representing tubal ligation clip. A similar appearing density seen in the left upper quadrant. These were not present on prior CT scan abdomen and pelvis dated January 09, 2019. Electronically Signed: Chirag Mock, at 15:08 EST , Service support ,
[2019-11-11 15:53] VITALS: BMI 19.9
--- NOTE | 2019-11-11 16:01 | NURSING ---
ROOM [address] [place] FLANK PAIN
[2019-11-11 16:04] VITALS: PULSE 80; RESP 16; O2SAT 96
[2019-11-11 16:13] VITALS: BMI 19.6
[2019-11-11 16:30] VITALS: BP 102/65; PULSE 63; RESP 16; TEMP 36.8; O2SAT 100
--- NOTE | 2019-11-11 16:34 | HP.PCM_ITS ---
History of Present Illness Date of Admission: 11/11/19 Chief Complaint: Right Flank Pain The patient is a 44 year old F with a PMH as below who presents with right flank pain. She said it started about 2 weeks ago but it first discharge she might of been having her period so she proceeded to go to her neurologist to get her infusion for her migraines however the pain did not resolve and so on Friday she went to [facility] where they did a CT scan and said that she had a kidney stone and that she could go home. The pain was even worse that night and so on Friday night she proceeded to go to [facility] where they told her they did not have a urologist infection prevention coordinator and that she should go home and follow-up as an outpatient. So she followed up with Dr. Greene on Friday who scheduled her for surgery on Friday, however should her pain came back today and was more intense. No repeat CT scan was done since we have access to the report from all normal, her lab work was unremarkable and her vital signs were stable. Past Medical History Past Medical History (Chronic Problems): Chronic Problems (Last Updated 04/22/19 @ 09:32 by Shandra De La O) History of kidney stones (Chronic) Migraine headache (Chronic) Medical History: Medical History (Last Updated 04/22/19 @ 09:32 by Shandra De La O) Migraines G43.909 Recent childbirth Z39.0 Allergies erythromycin base [Erythromycin Base] Adverse Reaction (Verified 11/11/19 12:47) Nausea hydrocodone bitartrate [From Vicodin] Adverse Reaction (Verified 11/11/19 12:47) Other Home Medications: Ambulatory Orders Medication Instructions Recorded Aspirin [Aspirin, Baby] 81 mg PO DAILY@0800 12/25/18 Cholecalciferol (VIT D3) [Vitamin 1,000 units PO DAILY 12/25/18 D3] Clonazepam 1 mg PO QHS 12/25/18 Folic Acid 2 mg PO DAILY 12/25/18 Tizanidine HCl 4 mg PO DAILY PRN PRN 12/25/18 oxycodone-acetaminophen 5 mg-325 1 - 2 tab PO Q4H PRN PRN tab 04/22/19 mg tablet promethazine 25 mg tablet 25 mg PO Q6H PRN PRN tab 04/22/19 topiramate 200 mg tablet 400 mg PO BID 04/22/19 Magnesium Oxide [Magnesium] 500 mg PO BID 11/11/19 Surgical History: Surgical History (Last Updated 04/22/19 @ 09:32 by Shandra De La O) History of cholecystectomy Z90.49 Kidney stones N20.0 Post Placement Surgical History: cholecystectomy, - - Tubal ligation, surgical removal of left kidney stone. 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 Smoking Status: Never smoker Tobacco Use: Non-smoker Alcohol: None Drugs: None - *Family History Maternal Family History: Family History (Last Updated 04/22/19 @ 09:33 by Shandra De La O) Father MVP (mitral valve prolapse) History Items: - - Kidney stones Paternal Family History: Family History (Last Updated 04/22/19 @ 09:33 by Shandra De La O) Father MVP (mitral valve prolapse) History Items: No pertinent history Review of Systems Constitutional: Denies: Chills, Fever, Weight Change HEENT: Denies: Head Aches, Sinus Congestion, Sinus Drainage Cardiovascular: Denies: Chest Pain, Palpitations Respiratory: Denies: Cough, Shortness of breath at rest, Sputum production Gastrointestinal: Denies: Abdominal Pain, Nausea, Vomiting Genitourinary: Reports: - - Right CVA tenderness. Denies: Dysuria Musculoskeletal: Denies: Joint Pain, Joint Tenderness Skin: Denies: Rash, Wounds Neurological: Denies: Numbness, Tingling, Focal weakness Psychiatric: Denies: Anxiety, Depression Hematologic/ Lymphatic: Denies: Easy Bruising, Easy Bleeding VTE Information - Inpt Only VTE Present on Admission: No Patient Problems: Active and Suspected Problems (Last Updated 04/22/19 @ 09:32 by Shandra De La O) Right flank pain (Acute) Kidney stone on right side (Acute) - Physical Exam Vitals/I&O's: Vital Signs Temp Pulse Resp BP Pulse Ox 99.4 F H 80 16 126/89 H 96 11/11/19 12:42 11/11/19 16:04 11/11/19 16:04 11/11/19 12:42 11/11/19 16:04 Oxygen Delivery Method Room Air Weight: 107 lb 9.369 oz Body Mass Index (BMI) 19.6 General: Alert, Oriented x3, Cooperative, No apparent distress HEENT: Atraumatic, PERRLA, EOMI, Normocephalic Oral: Moist Mucosa Neck: Supple, No JVD Lungs: Clear to auscultation, Normal air movement, No rhonchi, No wheeze, No rales Cardiovascular: Regular rate, Regular Rhythm, Normal S1, Normal S2, No murmurs Abdomen: Soft, Non Tender, Non-Distended, No Hepato-splenomegaly, - - Right- sided CVA tenderness Extremities: No edema, Capillary Refill Less than 3 Seconds Skin: No rashes, No breakdown Neurological: Neuro grossly intact, Sensory exam intact to light touch and pain Psych/Mental Status: Normal Affect, Appropriate Laboratory Results 11/11/19 13:25: WBC 5.1, RBC 4.51, Hgb 13.0, Hct 41.4, MCV 91.8, MCH 28.8, MCHC 31.4 L, RDW Std Deviation 42.9, RDW Coeff of Brian 12.9, Plt Count 160, MPV 9.8, Immature Gran % (Auto) 0.200, Neut % (Auto) 58.6, Lymph % (Auto) 31.7, [place] % (Auto) 6.5, Eos % (Auto) 2.4, Baso % (Auto) 0.6, Absolute Neuts (auto) 3.0, Absolute Lymphs (auto) 1.60, Nucleated RBC % 0 11/11/19 13:25: Sodium 140, Potassium 3.6, Chloride 114 H, Carbon Dioxide 21.0, Anion Gap 5, BUN 14, Creatinine 0.87, Estim Creat Clear Calc 64.22, Est GFR (MDRD) Af Amer 91, Est GFR (MDRD) Non-Af 75, BUN/Creatinine Ratio 16.1, Glucose 82, Calcium 8.5 Current Medications Heparin Sodium (Beef Lung) () 50 units IV UD PRN PRN Reason: Port-a-Cath (VAD)Heparin Flush Sodium Chloride () 1,000 mls @ 100 mls/hr IV .Q10H DADA Ketorolac Tromethamine (Toradol) 30 mg IV Q6H PRN PRN PRN Reason: Pain Score 1-10/10 Stop: 11/16/19 16:20 Ketorolac Tromethamine (Toradol) 15 mg IV X1 ONE Stop: 11/11/19 16:25 Ondansetron HCl (Zofran) 4 mg IV Q8H PRN PRN PRN Reason: NAUSEA/VOMITING Sodium Chloride () 10 - 40 ml IV UD PRN PRN Reason: Port-a-Cath (VAD) Flush Sodium Chloride (0.9% Nacl (Sterile) Posiflush) 10 - 40 ml IV UD PRN PRN Reason: Port access or dressing change Assessment/Plan All Active Problems (Last Updated 04/22/19 @ 09:32 by Shandra De La O) Right flank pain (Acute) Kidney stone on right side (Acute) Elevated liver enzymes (Acute) Choledocholithiasis (Acute) Cholelithiasis (Acute) 1. Right nephrolithiasis with a 9 mm stone at the UPJ -Consult to urology for procedure in the morning -Continue with IV fluids -Toradol 30 mg IV every 6 as needed for pain control -She has had kidney stones in the past 2. Migraines -She sees a neurologist in [place] where she gets infusions as well as Topamax -Her migraines are under decent control at the moment, her last infusions were last week -Continue with tizanidine 3. Anxiety -Continue with Klonopin at night -Stable DVT: Ambulation Code Visit OBSV E&M: 38700 Initial observation care L2
[2019-11-11] MEDS: Ketorolac 15 MG/ML Vial IV (17:18)
[2019-11-11] MEDS: 0.9% Saline Lock 10 ML Syringe IV (17:18)
[2019-11-11] MEDS: 0.9% Normal Saline 1,000 ML 100 ML IV (17:18)
[2019-11-11 20:32] VITALS: BP 110/65; PULSE 58; RESP 16; TEMP 37.1; O2SAT 100
[2019-11-11] MEDS: clonazePAM 1 MG Tablet PO (21:11)
[2019-11-11] MEDS: Topiramate 200 MG Tablet 400 MG PO (21:11)
[2019-11-11] MEDS: Morphine 2 MG/ML Syringe 1 MG IV (21:11)
[2019-11-11 23:22] VITALS: BP 95/66; PULSE 69; RESP 16; TEMP 36.9; O2SAT 100
[2019-11-11] MEDS: Ketorolac 30 MG/ML Syringe IV (23:24)
[2019-11-12] VITALS (12 sets, daily range): BP systolic 97–110; BP diastolic 52–74; PULSE 51–83; RESP 15–18; TEMP 36.4–37; O2SAT 98–100; BMI 19.6
[2019-11-12] MEDS: 0.9% Normal Saline 1,000 ML 100 ML IV ×3 (03:18→17:39)
[2019-11-12] MEDS: 0.9% Saline Lock 10 ML Syringe IV ×3 (05:30→12:57)
[2019-11-12] MEDS: Ketorolac 30 MG/ML Syringe IV ×3 (05:37→21:48)
[2019-11-12 06:15] LABS: Anion Gap 4 (5-15); BUN 18 mg/dL (7-18); BUN/Creat Ratio 20.3 RATIO (10-20); Chloride 119 mmol/L (98-107); Creatinine, Serum 0.89 mg/dL (0.55-1.02); EST Glomerular Filtration Rate 74 mL/min (>60); Est Glom Filt Rate - Afr Amer 89 mL/min (>60); Estimated Creatinine Clearance 62.14 ml/min; Glucose 80 mg/dL (74-106); Potassium 4.1 mmol/L (3.5-5.1); Sodium Level 143 mmol/L (136-145)
--- NOTE | 2019-11-12 07:40 | PCM.PN.HOSP ---
Patient Problems: Active and Suspected Problems (Last Updated 04/22/19 @ 09:32 by Shandra De La O) Right flank pain (Acute) Kidney stone on right side (Acute) Reason for Visit: Follow-up on kidney stone Subjective: Seen and examined. She denied any fever or chills. Denied any dysuria or frequency or urgency lower abdominal discomfort. Right flank pain is improved. She last saw hematuria yesterday. He is going for cystoscopy/ureteroscopy with possible stent placed today. Vitals/I&O's: Vital Signs Temp Pulse Resp BP Pulse Ox 98.2 F 51 L 16 99/60 100 11/12/19 05:39 11/12/19 05:39 11/12/19 05:39 11/12/19 05:39 11/12/19 05:39 Oxygen Delivery Method Room Air Weight: 48.8 kg Body Mass Index (BMI) 19.6 Intake and Output for Last 24 Hours 11/10/19 11/11/19 11/12/19 23:59 23:59 23:59 Intake Total 1000 / 1000 1000 / 1000 Output Total 600 / 600 200 / 200 Balance 400 / 400 800 / 800 General: Alert, Oriented x3, Cooperative, No apparent distress HEENT: Atraumatic, PERRLA, EOMI, Normocephalic Oral: Moist Mucosa Neck: Supple Lungs: Clear to auscultation, Normal air movement, - - Right Mediport in place, no erythema Cardiovascular: Regular rate, Regular Rhythm, Normal S1, Normal S2, No murmurs Abdomen: Bowel Sounds Present, Soft, Non Tender, Non-Distended, No Hepato-splenomegaly Extremities: No edema Skin: No rashes, No breakdown Musculoskeletal: No Tenderness to Palpation of Joints or Extremities Lymphatic: No Cervical, Supraclavicular, or Inguinal Adenopathy Neurological: Cranial nerves II-XII grossly intact, Neuro grossly intact Psych/Mental Status: Normal Affect, Appropriate Laboratory Results 11/11/19 13:25: WBC 5.1, RBC 4.51, Hgb 13.0, Hct 41.4, MCV 91.8, MCH 28.8, MCHC 31.4 L, RDW Std Deviation 42.9, RDW Coeff of Brian 12.9, Plt Count 160, MPV 9.8, Immature Gran % (Auto) 0.200, Neut % (Auto) 58.6, Lymph % (Auto) 31.7, [place] % (Auto) 6.5, Eos % (Auto) 2.4, Baso % (Auto) 0.6, Absolute Neuts (auto) 3.0, Absolute Lymphs (auto) 1.60, Nucleated RBC % 0 11/11/19 13:25: Sodium 140, Potassium 3.6, Chloride 114 H, Carbon Dioxide 21.0, Anion Gap 5, BUN 14, Creatinine 0.87, Estim Creat Clear Calc 64.22, Est GFR (MDRD) Af Amer 91, Est GFR (MDRD) Non-Af 75, BUN/Creatinine Ratio 16.1, Glucose 82, Calcium 8.5 11/12/19 05:33: Sodium 143, Potassium 4.1, Chloride 119 H, Carbon Dioxide 20.0 L, Anion Gap 4 L, BUN 18, Creatinine 0.89, Estim Creat Clear Calc 62.14, Est GFR (MDRD) Af Amer 89, Est GFR (MDRD) Non-Af 74, BUN/Creatinine Ratio 20.3 H, Glucose 80, Calcium 8.0 L Current Medications Aspirin (Aspirin, Baby) 81 mg PO DAILY@0800 [facility] Clonazepam (Klonopin) 1 mg PO QHS [facility] Last Admin: 11/11/19 21:11 Dose: 1 mg Documented by: Folic Acid (Folic Acid) 2 mg PO DAILYCM [facility] Heparin Sodium (Beef Lung) () 50 units IV UD PRN PRN Reason: Port-a-Cath (VAD)Heparin Flush Sodium Chloride () 1,000 mls @ 100 mls/hr IV .Q10H [facility] Last Admin: 11/12/19 03:18 Dose: 100 mls/hr Documented by: Ketorolac Tromethamine (Toradol) 30 mg IV Q6H PRN PRN PRN Reason: Pain Score 4-5/10 Stop: 11/16/19 16:20 Last Admin: 11/12/19 05:37 Dose: 30 mg Documented by: Morphine Sulfate () 1 mg IV Q4H PRN PRN PRN Reason: Pain Score 6-10/10 Last Admin: 11/11/19 21:11 Dose: 1 mg Documented by: Ondansetron HCl (Zofran) 4 mg IV Q8H PRN PRN PRN Reason: NAUSEA/VOMITING Promethazine HCl (Phenergan Tablet) 25 mg PO Q6H PRN PRN PRN Reason: NAUSEA Sodium Chloride () 10 - 40 ml IV UD PRN PRN Reason: Port-a-Cath (VAD) Flush Last Admin: 11/12/19 05:30 Dose: 30 ml Documented by: Sodium Chloride (0.9% Nacl (Sterile) Posiflush) 10 - 40 ml IV UD PRN PRN Reason: Port access or dressing change Tizanidine HCl (Zanaflex) 4 mg PO DAILY PRN PRN PRN Reason: MIGRAINE SYMPTOMS Topiramate (Topamax) 400 mg PO BID DADA Last Admin: 11/11/19 21:11 Dose: 400 mg Documented by: STROKE Vital Signs/Narrative: Vital Signs Temp Pulse Resp BP Pulse Ox 11/12/19 05:39 98.2 F 51 L 16 99/60 100 Medical Necessity - Tobacco Use Smoking Status: Never smoker Tobacco Use: Non-smoker Assessment/Plan All Active Problems (Last Updated 04/22/19 @ 09:32 by Shandra De La O) Right flank pain (Acute) Kidney stone on right side (Acute) Elevated liver enzymes (Acute) Choledocholithiasis (Acute) Cholelithiasis (Acute) 44-year-old female with past medical history of migraines who presented with right flank pain. Previously diagnosed with kidney stones and [facility] and was due for urology evaluation today. 1. Right nephrolithiasis with hematuria, reported 9 mm stone at the right UPJ ESWL and stent plan today by urology. Her pain is fairly controlled Will start patient on empiric IV ceftriaxone Follow-up with recommendations, repeat blood work in a.m. 2. History of migraines, on tizanidine, topiramate, potassium, oral magnesium, been getting IV infusions with neurology outpatient No exacerbation in this admission 3. DVT prophylaxis - low risk; early ambulation encouraged Code Visit Inpatient E&M: 61991 Subs Hosp L2
[2019-11-12] MEDS: Ceftriaxone 1 GM/50 ML BAG IV (10:26)
[2019-11-12] MEDS: Topiramate 200 MG Tablet 400 MG PO ×2 (10:27→21:48)
[2019-11-12] MEDS: Morphine 2 MG/ML Syringe 1 MG IV ×2 (10:44→20:05)
--- NOTE | 2019-11-12 14:15 | NURSING ---
PT TO OR VIA BED
--- NOTE | 2019-11-12 15:26 | DCINST_ITS ---
Discharge Diet: Light diet - advance as tolerated Discharge Activity: Return to Normal Activity Call your doctor if your incision/area has: Continuous Slow Oozing, Sudden Increased Bleeding, Increased Pain/ Swelling, Increased Redness, Foul Smelling Discharge, Swelling at the incision site Call your doctor if you observe: Fever of 101 or Higher, Uncontrolled pain Suture Line Care: Avoid Pulling/Pushing, Avoid Pinching/Bending Instructions: Shock Wave Lithotripsy Allergies/Adverse Reactions: Allergies erythromycin base [Erythromycin Base] Adverse Reaction (Verified 11/11/19 12:47) Nausea hydrocodone bitartrate [From Vicodin] Adverse Reaction (Verified 11/11/19 12:47) Other Medications to take at Discharge Aspirin [Aspirin, Baby] 81 mg PO DAILY@0800 12/25/18 Cholecalciferol (VIT D3) [Vitamin D3] 1,000 units PO DAILY 12/25/18 Clonazepam 1 mg PO QHS 12/25/18 Folic Acid 2 mg PO DAILY 12/25/18 Tizanidine HCl 4 mg PO DAILY PRN PRN 12/25/18 oxycodone-acetaminophen 5 mg-325 mg tablet 1 - 2 tab PO Q4H PRN PRN tab 04/22/19 promethazine 25 mg tablet 25 mg PO Q6H PRN PRN tab 04/22/19 topiramate 200 mg tablet 400 mg PO BID 04/22/19 Magnesium Oxide [Magnesium] 500 mg PO BID 11/11/19 Primary Care Physician: Nikky Pillai MD [Primary Care Provider] - Test Results: Test results from this visit will be discussed in further detail at your follow- up appointment, if applicable. Please Follow Up With: Contreras Greene MD When: in 2 weeks, please call to make an appointment.
--- NOTE | 2019-11-12 16:25 | PCM.OPRPT ---
Report of Operation Date of Procedure: 11/12/19 Pre-Operative Diagnosis: Right renal calculi Post-Operative Diagnosis: Same Surgery/Procedure Performed:: Right extracorporeal shockwave lithotripsy Description of Surgical Findings:: 44-year-old female taken back to the operating room at the smooth induction of general anesthesia she was placed supine on the table we then localized the stone in the right renal pelvis under fluoroscopy placed the stone in the F2 focal point of the lithotripter machine and proceeded with shockwave lithotripsy. Initially we had some PVCs and we had to gait the shockwaves continue with shockwave lithotripsy power up to 7 a rate of 90/min and at the end of about 1000 shockwaves the stone is broken up into little pieces. We then continued with more shockwaves we completed a total of 2000 shockwaves at the end of the procedure where some small fragments were seen but no segment ligament fragments were left and therefore no stent was placed patient anesthetic was reversed and will see her back in a few weeks with an x-ray appear to be a successful fragmentation of the stone. Type of Anesthesia:: General Drains: none - Admit VTE Documentation VTE Present on Admission: No VTE Mechan Device Prophylaxis: SCD's
[2019-11-12] MEDS: clonazePAM 1 MG Tablet PO (21:48)
[2019-11-13 03:09] VITALS: BP 96/60; PULSE 67; RESP 16; TEMP 36.4; O2SAT 100
[2019-11-13] MEDS: 0.9% Normal Saline 1,000 ML 100 ML IV (03:14)
[2019-11-13] MEDS: Morphine 2 MG/ML Syringe 1 MG IV (03:21)
[2019-11-13 05:55] LABS: Absolute Lymphocyte Count 1.44 X10^3/uL (0.83-4.51); Absolute Neutrophil Count 2.3 X10^3/uL (2.0-7.7); Basophil# 0.02 X10^3/uL; Basophil% 0.5 % (0-1); Eosinophil# 0.03 X10^3/uL; Eosinophils% 0.7 % (0-5); Hemoglobin 10.2 g/dL (12.0-15.0); Lymphocyte # 1.44 X10^3/ul (4.0); Lymphocyte % 34.7 % (19-41); Mean Corp Hgb Conc 30.9 g/dL (32-36); Mean Corpuscular Volume 93.8 fL (81-99); Mean Platelet Vol. 10.1 fl (6.2-12.0); Monocyte# 0.38 X10^3/uL; Monocyte% 9.2 % (0-10); NRBC Flagged by Analyzer 0 % (0-5); Neutrophil # 2.27 X10^3/uL (2.7-7.7); Neutrophil % 54.7 % (47-70); Platelet Count 103 K/mm3 (150-450); RBC Distribution Width CV 13.2 % (11.6-14.6); RBC Distribution Width SD 44.7 fl (35.1-43.9); Red Blood Count 3.52 M/mm3 (4.2-5.4); White Blood Count 4.2 K/mm3 (4.4-11.0)
[2019-11-13 06:12] LABS: ALB/GLOB Ratio 1.1 RATIO (0.9-2.4); AST(SGOT) 199 U/L (15-37); Alanine Aminotransfer ALT/SGPT 377 U/L (13-56); Albumin, Serum 2.5 g/dL (3.2-5.0); Alkaline Phosphatase 113 U/L (45-117); Anion Gap 7 (5-15); BUN 9 mg/dL (7-18); Calcium,Total 7.9 mg/dL (8.5-10.1); Chloride 119 mmol/L (98-107); Creatinine, Serum 0.64 mg/dL (0.55-1.02); EST Glomerular Filtration Rate 106 mL/min (>60); Est Glom Filt Rate - Afr Amer 129 mL/min (>60); Estimated Creatinine Clearance 86.42 ml/min; Globulin 2.3 g/dL (2.2-4.2); Glucose 70 mg/dL (74-106); Potassium 3.9 mmol/L (3.5-5.1); Protein, Total 4.8 g/dL (6.4-8.2); Sodium Level 144 mmol/L (136-145)
[2019-11-13] MEDS: 0.9% Saline Lock 10 ML Syringe IV ×2 (07:26→10:45)
[2019-11-13] MEDS: Ketorolac 30 MG/ML Syringe IV (07:27)
[2019-11-13] MEDS: Topiramate 200 MG Tablet 400 MG PO (07:27)
--- NOTE | 2019-11-13 09:04 | PCM.DC ---
- Discharge Diagnoses Current Active Problems: Current Active and Chronic Problems (Last Updated 04/22/19 @ 09:32 by Shandra De La O) Right flank pain (Acute) Kidney stone on right side (Acute) Reason(s) for Visit for Discharge Instructions: Kidney stone You will use the following diet at home:: Regular Your food should be the consistency of: Regular Your liquids should be the consistency of: Regular/Thin Discharge Activity: Return to Normal Activity Call your doctor if your incision/area has: Continuous Slow Oozing, Sudden Increased Bleeding, Increased Pain/ Swelling, Increased Redness, Foul Smelling Discharge, Swelling at the incision site Call your doctor if you observe: Fever of 101 or Higher, Uncontrolled pain Suture Line Care: Avoid Pulling/Pushing, Avoid Pinching/Bending Instructions: Shock Wave Lithotripsy Additional Instructions: Continue to keep yourself hydrated. Follow-up with your primary care dovctor within 1-2 weeks for repeat blood work( CMP). Follow-up with Dr Greene as scheduled. Avoid alcohol until your liver tests are back to normal. Allergies/Adverse Reactions: Allergies erythromycin base [Erythromycin Base] Adverse Reaction (Verified 11/11/19 12:47) Nausea hydrocodone bitartrate [From Vicodin] Adverse Reaction (Verified 11/11/19 12:47) Other Medications to take at Discharge Aspirin [Aspirin, Baby] 81 mg PO DAILY@0800 12/25/18 Cholecalciferol (VIT D3) [Vitamin D3] 1,000 units PO DAILY 12/25/18 Clonazepam 1 mg PO QHS 12/25/18 Folic Acid 2 mg PO DAILY 12/25/18 Tizanidine HCl 4 mg PO DAILY PRN PRN 12/25/18 oxycodone-acetaminophen 5 mg-325 mg tablet 1 - 2 tab PO Q4H PRN PRN tab 04/22/19 promethazine 25 mg tablet 25 mg PO Q6H PRN PRN tab 04/22/19 topiramate 200 mg tablet 400 mg PO BID 04/22/19 Magnesium Oxide [Magnesium] 500 mg PO BID 11/11/19 Primary Care Physician: Nikky Pillai MD [Primary Care Provider] - Please follow up with your Primary Care Physician in: within 1-2 weeks Test Results: Test results from this visit will be discussed in further detail at your follow-up appointment, if applicable. Please Follow Up With: Contreras Greene MD When: in 2 weeks, please call to make an appointment. Proposed Discharge Date: 11/13/19
[2019-11-13 09:05] VITALS: BP 106/69; PULSE 65; RESP 16; TEMP 37.2; O2SAT 98
--- NOTE | 2019-11-13 09:07 | DS.PCM_ITS ---
Discharge Date and Diagnosis Date of Admission: 11/11/19 Date of Discharge: 11/13/19 - Primary Discharge Diagnosis Active and Suspected Problems (Last Updated 04/22/19 @ 09:32 by Shandra De La O) Right flank pain (Acute) Kidney stone on right side (Acute) Elevated LFTs - Secondary Discharge Diagnosis Chronic Problems (Last Updated 04/22/19 @ 09:32 by Shandra De La O) History of kidney stones (Chronic) Migraine headache (Chronic) Hospital Course and Treatment Imaging Results: Clinical Impression(s) from Imaging Studies KUB X-Ray 11/11/19 14:05 IMPRESSION: Metallic density in the left hemipelvis most likely representing tubal ligation clip. A similar appearing density seen in the left upper quadrant. These were not present on prior CT scan abdomen and pelvis dated January 09, 2019. Electronically Signed: Chirag Nish, at 15:08 EST , Service support , Urology Operations: cholecystecomy, - - Laparoscopic cholecystectomy with cholangiogram. Summary of Care Provided: 44-year-old female with past medical history of migraines who presented with right flank pain. She was recently diagnosed with kidney stones in [facility] and was due for urology evaluation on Friday. 1. Right nephrolithiasis with hematuria, reported 9 mm stone at the right UPJ s/p ESWL, will follow-up with urology in 2 weeks 2. Elevated LFTs, unclear etiology, patient to follow-up with her primary care doctor and repeat blood work within 1 week 3. History of migraines, on tizanidine, topiramate, potassium, oral magnesium, been getting IV infusions with neurology outpatient No exacerbation in this admission Subjective: On the day of discharge, patient was seen and examined. Denied any new complaints. Underwent external corporal shockwave lithotripsy yesterday with success. No stents were placed. Denied any fever or chills. Objective: Physical exam: General: Alert, Oriented x3, Cooperative, No apparent distress HEENT: Atraumatic, PERRLA, EOMI, Normocephalic Oral: Moist Mucosa Neck: Supple Lungs: Clear to auscultation, Normal air movement, - - Right Mediport in place, no erythema Cardiovascular: Regular rate, Regular Rhythm, Normal S1, Normal S2, No murmurs Abdomen: Bowel Sounds Present, Soft, Non Tender, Non-Distended, No Hepato-splenomegaly Extremities: No edema Skin: No rashes, No breakdown Musculoskeletal: No Tenderness to Palpation of Joints or Extremities Lymphatic: No Cervical, Supraclavicular, or Inguinal Adenopathy Neurological: Cranial nerves II-XII grossly intact, Neuro grossly intact Psych/Mental Status: Normal Affect, Appropriate - Physical Exam Vitals/I&O's: Vital Signs Temp Pulse Resp BP Pulse Ox 97.5 F L 67 16 96/60 100 11/13/19 03:09 11/13/19 03:09 11/13/19 03:09 11/13/19 03:09 11/13/19 03:09 Oxygen Delivery Method Room Air Weight: 48.8 kg Body Mass Index (BMI) 19.6 Intake and Output for Last 24 Hours 11/11/19 11/12/19 11/13/19 23:59 23:59 23:59 Intake Total 1000 / 1000 2515.00 / 2515.00 1558.33 / 1558.33 Output Total 600 / 600 650 / 650 1225 / 1225 Balance 400 / 400 1865.00 / 1865.00 333.33 / 333.33 Laboratory Results 11/13/19 05:44: WBC 4.2 L, RBC 3.52 L, Hgb 10.2 L, Hct 33.0 L, MCV 93.8, MCH 29.0, MCHC 30.9 L, RDW Std Deviation 44.7 H, RDW Coeff of Brian 13.2, Plt Count 103 L, MPV 10.1, Immature Gran % (Auto) 0.200, Neut % (Auto) 54.7, Lymph % (Auto) 34.7, Van Zandt % (Auto) 9.2, Eos % (Auto) 0.7, Baso % (Auto) 0.5, Absolute Neuts (auto) 2.3, Absolute Lymphs (auto) 1.44, Nucleated RBC % 0 11/13/19 05:44: Sodium 144, Potassium 3.9, Chloride 119 H, Carbon Dioxide 18.0 L , Anion Gap 7, BUN 9, Creatinine 0.64, Estim Creat Clear Calc 86.42, Est GFR (MDRD) Af Amer 129, Est GFR (MDRD) Non-Af 106, BUN/Creatinine Ratio 14.0, Glucose 70 L, Calcium 7.9 L, Total Bilirubin 0.20, AST 199 H, ALT 377 H, Alkaline Phosphatase 113, Total Protein 4.8 L, Albumin 2.5 L, Globulin 2.3, Albumin/Globulin Ratio 1.1 Current Medications Aspirin (Aspirin, Baby) 81 mg PO DAILY@0800 [facility] Last Admin: 11/12/19 10:20 Dose: Not Given Documented by: Clonazepam (Klonopin) 1 mg PO QHS [facility] Last Admin: 11/12/19 21:48 Dose: 1 mg Documented by: Folic Acid (Folic Acid) 2 mg PO DAILYCM [facility] Last Admin: 11/12/19 10:20 Dose: Not Given Documented by: Heparin Sodium (Beef Lung) () 50 units IV UD PRN PRN Reason: Port-a-Cath (VAD)Heparin Flush Sodium Chloride () 1,000 mls @ 100 mls/hr IV .Q10H [facility] Last Admin: 11/13/19 03:14 Dose: 100 mls/hr Documented by: Ceftriaxone Sodium (Rocephin) 1 gm in 50 mls @ 100 mls/hr IV Q24 [facility] Last Infusion: 11/12/19 10:56 Dose: Infused Documented by: Ketorolac Tromethamine (Toradol) 30 mg IV Q6H PRN PRN PRN Reason: Pain Score 4-5/10 Stop: 11/16/19 16:20 Last Admin: 11/13/19 07:27 Dose: 30 mg Documented by: Morphine Sulfate () 1 mg IV Q4H PRN PRN PRN Reason: Pain Score 6-10/10 Last Admin: 11/13/19 03:21 Dose: 1 mg Documented by: Ondansetron HCl (Zofran) 4 mg IV Q8H PRN PRN PRN Reason: NAUSEA/VOMITING Promethazine HCl (Phenergan Tablet) 25 mg PO Q6H PRN PRN PRN Reason: NAUSEA Sodium Chloride () 10 - 40 ml IV UD PRN PRN Reason: Port-a-Cath (VAD) Flush Last Admin: 11/13/19 07:26 Dose: 20 ml Documented by: Sodium Chloride (0.9% Nacl (Sterile) Posiflush) 10 - 40 ml IV UD PRN PRN Reason: Port access or dressing change Tizanidine HCl (Zanaflex) 4 mg PO DAILY PRN PRN PRN Reason: MIGRAINE SYMPTOMS Topiramate (Topamax) 400 mg PO BID [facility] Last Admin: 11/13/19 07:27 Dose: 400 mg Documented by: Discharge Diet: Light diet - advance as tolerated Discharge Activity: Return to Normal Activity Call your doctor if your incision/area has: Continuous Slow Oozing, Sudden Increased Bleeding, Increased Pain/ Swelling, Increased Redness, Foul Smelling Discharge, Swelling at the incision site Call your doctor if you observe: Fever of 101 or Higher, Uncontrolled pain Suture Line Care: Avoid Pulling/Pushing, Avoid Pinching/Bending Home Medications: Medications to take at Discharge Aspirin [Aspirin, Baby] 81 mg PO DAILY@0800 12/25/18 Cholecalciferol (VIT D3) [Vitamin D3] 1,000 units PO DAILY 12/25/18 Clonazepam 1 mg PO QHS 12/25/18 Folic Acid 2 mg PO DAILY 12/25/18 Tizanidine HCl 4 mg PO DAILY PRN PRN 12/25/18 oxycodone-acetaminophen 5 mg-325 mg tablet 1 - 2 tab PO Q4H PRN PRN tab 04/22/19 promethazine 25 mg tablet 25 mg PO Q6H PRN PRN tab 04/22/19 topiramate 200 mg tablet 400 mg PO BID 04/22/19 Magnesium Oxide [Magnesium] 500 mg PO BID 11/11/19 Primary Care Physician: Nikky Pillai MD [Primary Care Provider] - Please follow up with your Primary Care Physician in: within 1-2 weeks Please Follow Up With: Contreras Greene MD When: in 2 weeks, please call to make an appointment. Patient Instructions: Shock Wave Lithotripsy Disposition: Home Minutes spent on discharge:: 40 Patient Condition:: Stable Medical Necessity - Tobacco Use Smoking Status: Never smoker Tobacco Use: Non-smoker Meaningful Use Info Meaningful Use Diagnoses (Choose all that apply): None applicable Code Visit OBSV E&M: 18935 Observation care discharge
[2019-11-13] MEDS: Folic Acid 1 MG Tablet 2 MG PO (09:49)
[2019-11-13] MEDS: Aspirin 81 MG TAB.CHEW PO (09:49)
[2019-11-13] MEDS: Ceftriaxone 1 GM/50 ML BAG IV (09:50)
[2019-11-13 09:54] VITALS: PULSE 70
== END 2019-11-13 11:01 | disposition home or self-care (01) ==
LOC: ED 15:21 → MS3 15:47
PROVIDERS: Urology; Admitting Provider Family Medicine; Emergency Provider Emergency Medicine; PCP Family Medicine; Visit Provider Internal Medicine
PROC: (CPT 50590; principal; 2019-11-12 15:15)
DX: N20.0 Calculus of kidney (principal); G43.909 Migraine, unspecified, not intractable, without status migrainosus; Z79.82 Long term (current) use of aspirin; Z79.899 Other long term (current) drug therapy; F41.9 Anxiety disorder, unspecified; R79.89 Other specified abnormal findings of blood chemistry
CPT/HCPCS: 00873; 50590; 74018; 80048; 80053; 85025; 96361; 96365; 96366; 96375; 96376; 99218; 99283; J7030; A4216; G0378; J2405

== ENCOUNTER → 2019-11-25 08:43 | Outpatient (CLI) | payer OTHER, SELFPAY ==
[2019-11-12 14:19] VITALS: BMI 19.6
[2019-11-25 10:48] LABS: AST(SGOT) 34 U/L (15-37); Alanine Aminotransfer ALT/SGPT 85 U/L (13-56); Albumin, Serum 3.9 g/dL (3.2-5.0); Alkaline Phosphatase 107 U/L (45-117); Bilirubin, Direct 0.08 mg/dL (0.00-0.30); Globulin 3.3 g/dL (2.2-4.2); Protein, Total 7.2 g/dL (6.4-8.2)
== END ==
PROVIDERS: PCP Family Medicine; Referring Provider Family Medicine; Visit Provider Family Medicine
DX: R74.8 Abnormal levels of other serum enzymes (principal)
CPT/HCPCS: 36415; 80076

== ENCOUNTER → 2019-11-25 12:46 | Outpatient (CLI) | payer OTHER, SELFPAY ==
[2019-11-12 14:19] VITALS: BMI 19.6
--- NOTE | 2019-11-25 12:55 | RAD_ITS ---
STUDY: X-RAY - ABDOMEN/PELVIS REASON FOR EXAM: Female, 44 years old. Flank pain TECHNIQUE: AP supine and upright views of the abdomen and pelvis. COMPARISON: None. FINDINGS: Normal visualized lung bases. Stable appearance of surgical clips in the left pelvis and left upper quadrant likely representing tubal ligation clips, the clip in the left upper quadrant has likely migrated from the pelvis There is gaseous distention of the colon, most compatible with a colonic ileus. There is no demonstrated free abdominal air. The visualized liver, spleen and kidneys are grossly normal in size and morphology. Normal soft tissue structures. Normal visualized osseous structures. RAD/Abdomen Single View IMPRESSION: No demonstrated calcifications overlying either renal shadow, or along the expected course of either ureter. However, one could be obscured by the overlying bowel gas and stool Colonic ileus Electronically Signed: Tomas Mendez MD at 8:56 EST , Service support ,
== END ==
PROVIDERS: PCP Family Medicine; Referring Provider Urology; Visit Provider Urology
DX: N20.0 Calculus of kidney (principal)
CPT/HCPCS: 74018

== ENCOUNTER → 2020-06-09 10:09 | Outpatient (CLI) | payer OTHER, SELFPAY ==
[2019-11-12 14:19] VITALS: BMI 19.6
== END ==
PROVIDERS: PCP Family Medicine; Referring Provider Obstetrics & Gynecology; Visit Provider Obstetrics & Gynecology
DX: Z11.59 Encounter for screening for other viral diseases (principal)
CPT/HCPCS: 87635; 94799; U0003

== ENCOUNTER 2020-06-15 09:16 | Day surgery (SDC) | payer OTHER, SELFPAY ==
[2019-11-12 14:19] VITALS: BMI 19.6
--- NOTE | 2020-06-14 12:29 | HP.PCM_ITS ---
- Problem List (1) DUB (dysfunctional uterine bleeding) Status: Acute (2) Endometrial thickening on ultrasound Status: Acute History and Physical Date of Admission: 06/15/20 DATE OF SERVICE: June 12, 2020 ? PROBLEM:?DUB, thickened cystic endometrium on pelvic US ? DIAGNOSIS:?as above ? PAST SURGICAL HISTORY:? PAST SURGICAL HISTORY PAST SURGICAL HISTORY Procedure Laterality Date ? BOTOX ? beginning of 2011 ? x3 rounds ? LAP CHOLECYSTECT/CHOLANGIOGRAPHY ? 10-20-15 ? LIGATE FALLOPIAN TUBE ? ? ? Tubal ligation ? PAST SURGICAL HISTORY OF ?kidney stone removal and stent ? PAST SURGICAL HISTORY OF ?fissurectomy ? PLASTIC SURG - PACKAGE ? 11/2013 most recent ? x4- facial nerves for headaches ? PORT ? ? ? port placed 11/2018 ? PAST MEDICAL HISTORY:? PAST MEDICAL HISTORY PAST MEDICAL HISTORY Diagnosis Date ? Anal fissure ? ? Hemiplegic migraine ? ? Migraine ? ? Renal calculi ? ? Status migrainosus 09/2010 ? SUBJECTIVE: She reports persistent LLQ pain, and she feels as if she has a ruptured ovarian cyst. No other GI or complaints. No current vaginal bleeding.? ? SOCIAL HISTORY:? SOCIAL HISTORY Social History ? Tobacco Use ? Smoking status: Never Smoker ? Smokeless tobacco: Never Used Substance Use Topics ? Alcohol use: No ? Drug use: No ? ? Comment: very little ? ALLERGIES ALLERGIES Allergen Reactions ? Arithromycin [Azith* GI Upset ? Vicodin [Hydrocodon* Intolerance Current Outpatient Medications on File Prior to Visit Medication Sig ? Norethindrone, Contraceptive, 0.35 mg tablet Take 1 tablet by mouth once daily. ? tiZANidine HCl 4 mg capsule tiZANidine Tizanidine Hcl Active 4 MG DAILY NEEDED December 25, 2018 8:47pm 12-25-2018 ?[facility] ([id number]) ? aspirin, enteric coated (ASPIRIN, ENTERIC COATED) 81 mg EC tablet Take 81 mg by mouth once daily. ? FOLIC ACID ORAL Take by mouth. ? clonazePAM (KLONOPIN) 1 mg tablet Take 2 mg by mouth at bedtime as needed. ? cholecalciferol (VITAMIN D) 1,000 unit tab tablet Take 1,000 Units by mouth once daily. ? [id number] 160 mg iron-1 mg-60 mcg tab Take 1 tablet by mouth once daily. ? Magnesium Oxide 500 mg tab Take 1,000 mg by mouth once daily. ? oxyCODONE-acetaminophen (PERCOCET) 10-325 mg tablet Take 1 tablet by mouth every 4 hours as needed. ? PHENERGAN 25 MG TAB Take one (1) tablet three(3) times daily as needed. nausea ?or headache ? NURTEC ODT [address] ONE TABLET IN MOUTH AT ONSET OF HEADACHE. DO NOT EXCEED 1 TABLET IN A 24 HOUR PERIOD ? medroxyPROGESTERone (PROVERA) 10 mg tablet Take 1 tablet by mouth once daily for 10 days. ? L-Methylfolate (L-METHYLFOLATE) 15 mg tab Take ?by mouth. ? mirtazapine (REMERON) 30 mg tablet Take 30 mg by mouth daily at bedtime. ? Ketorolac Tromethamine (TORADOL) 30 mg/mL injection Inject 30 mg intramuscularly every 6 hours. ? topiramate (TOPAMAX) 200 mg tablet Take 800 mg by mouth twice daily. ? atorvastatin (LIPITOR) 20 mg tablet Take 20 mg by mouth once daily. ? melatonin 10 mg tab Take 1 tablet by mouth daily at bedtime. ? traZODone (DESYREL) 50 mg tablet Take 1 tablet by mouth daily at bedtime. (Patient not taking: Reported on 02/19/2017) ? eletriptan (RELPAX) 40 mg tablet Take 1 tablet by mouth as needed. 1 po at onset of migraine and may ?rept x 1 after 2h prn recurrence. Max 2/day and 2 day/week (Patient not taking: Reported on 02/10/2020 ) ? Naproxen Sodium 550 mg tablet 1 po TID ?prn headache. Max 10 days a month ? desvenlafaxine ER (KHEDEZLA) 50 mg 24 hr tablet Take 1 tablet by mouth once daily. qam No current facility-administered medications on file prior to visit.? ? ? OBJECTIVE: ? VITALS:? BP (P) 102/66 ? Ht (P) 5' 1 (1.549 m) ? Wt (P) 121 lb (54.9 kg) ? LMP 05/28/2020 ? BMI (P) 22.86 kg/m? ? HEENT: ?Normocephalic, atraumatic, Mucus membranes moist without lesions. ? NECK: ???Soft and Supple. ?No adenopathy , thyromegaly or bruits. ? SKIN: No lesions. ? CHEST: Clear to auscultation. ?No wheezes or rales. ?Good air exchange. ? HEART: Regular rate and rhythm ?No S3 or S4. ?No gallops or rubs. ? BACK: Nontender with no CVA tenderness. ? ABDOMEN: Soft, non-tender, non-distended, no masses, no hepatosplenomegaly. ? ? PELVIC: External genitalia, anus and urethral meatus ?are normal in appearance and without lesions. ?Vagina and cervix are normal in appearance on speculum examination. ?Bimanual pelvic and rectovaginal examination were negative for urethral, bladder, or pelvic masses, parametrial thickening, or cul-de-sac nodularity. ?Uterus normal size and nontender. ?There were no rectal masses and the guaiac negative. ? LOWER EXTREMITIES: There was no pitting edema, no palpable cords and no skin changes.? ? Pelvic US: IMPRESSION: 1. ?The endometrium is thickened and contains several cystic areas. ?? Findings could suggest endometrial hyperplasia or endometrial carcinoma. 2. ?Mildly complex cyst in the RIGHT ovary 3. ?Simple cyst LEFT ovary? ? ? ASSESSMENT:?DUB, thickened and cystic endometrium ? PLAN:?Discussed hysteroscopy, D&C, Mirena IUD placement.?The rationale for the proposed surgery was discussed in addition to risks, benefits, and alternatives. ?General pre- and post-operative care was reviewed. ?Questions were answered. ?After discussion, the patient indicated a desire to proceed with the planned surgery. ? Patient reports LLQ pain. Discussed reasons to go into the ER. Prior pelvic US images were reviewed and she has bilateral small simple cysts present that are likely physiologic given premenopausal state. Cannot use CHC given h/o migraines to prevent cyst formation. Will get another pelvic US prior to surgery. ? Marina Xavier,?DO
[2020-06-15] VITALS (9 sets, daily range): BP systolic 95–116; BP diastolic 63–82; PULSE 55–63; RESP 15–16; TEMP 36.2–36.5; O2SAT 94–99; BMI 22.1
[2020-06-15 09:48] LABS: Internal QC Validated? YES +Cl - CLEAR BKGD; Pregnancy, Urine Negative Negative
[2020-06-15] MEDS: Lactated Ringers 1,000 ML 100 ML IV (10:10)
[2020-06-15 10:12] LABS: Hematocrit 38.7 % (37-47); Hemoglobin 12.8 g/dL (12.0-15.0); Mean Corp Hgb Conc 33.1 g/dL (32-36); Mean Corpuscular Hgb 29.2 pg (27.0-32.0); Mean Corpuscular Volume 88.4 fL (81-99); Mean Platelet Vol. 9.8 fl (6.2-12.0); Platelet Count 175 K/mm3 (150-450); RBC Distribution Width CV 13.2 % (11.6-14.6); RBC Distribution Width SD 43.3 fl (35.1-43.9); Red Blood Count 4.38 M/mm3 (4.2-5.4); White Blood Count 4.6 K/mm3 (4.4-11.0)
--- NOTE | 2020-06-15 11:10 | EMB_PTH ---
PATIENT: AKIL REYEZ LOC: [facility] U#:[id number] AGE/SX: 45/F ROOM: RE06/15/[address]: Dr. Marina Xavier DO : 1975 BED: DIS: 06/15/2020 SPEC #: [id number] RECD: 06/15/20 12:19 STATUS: YAMILET [facility] #: [id number] NATO: 06/15/20 11:[address]: Marina Xavier DEPT: SURGICAL PATHOLOGY RECD BY: Eros Saldaña ENTERED: 06/16/20 08:54 SP TYPE: ENDOM BX/C OTHR DR: Dr. Nikky Pillai MD Tissues: Endometrium, NOS Procedures: Surgery Specimen Level IV HEADER OPERATION: Hysteroscopy, D & C, Mirena IUD placement PRE-OP DIAGNOSIS: Dysfunctional uterine bleeding; endometrial thickening on ultrasound TISSUE SUBMITTED: Endometrial curettings MICROSCOPIC DIAGNOSIS Endometrium, curettings: Transition endometrium with recent stromal hemorrhage. Fragments of benign endocervix. AM:juarez 06/19/20 MICROSCOPIC DESCRIPTION Slides are reviewed. GROSS DESCRIPTION Received in fixative is one container labeled with the patient's name and designated endometrial curettings. The specimen consists of multiple irregular fragments of dark iraheta soft tissue that in aggregate measure 2 x 2 x 0.2 cm. The specimen is totally submitted in one cassette. / AM:juarez 06/16/20 TC:5 CPT: 20764
--- NOTE | 2020-06-15 11:46 | OP.PCM_ITS ---
Problem List (1) DUB (dysfunctional uterine bleeding) Status: Acute (2) Endometrial thickening on ultrasound Status: Acute Report of Operation Date of Procedure: 06/15/20 Pre-Operative Diagnosis: DUB, thickened endometrium on pelvic US Post-Operative Diagnosis: As above Surgery/Procedure Performed:: Hysteroscopy, D&C, Mirena IUD placement Description of Surgical Findings:: Good descent of uterus and cervix. The uterine cavity was normal-appearing and bilateral tubal ostia were visualized. The lining appeared thin. There were no polyps or fibroids noted. Endocervical canal was normal-appearing. Uterus sounded to 7 and half centimeters. Type of Anesthesia:: MAC Special Medications: Mirena IUD Specimen's removed: Endometrial curettings Drains: None Estimated Blood Loss (mL): 0 Description of Procedure: She was taken to the operating room where she was placed in dorsal lithotomy position in [facility]. MAC anesthesia was found to be adequate. She was prepped and draped in the usual sterile fashion. A weighted speculum was placed in the vagina and cervix was exposed. Single-tooth tenaculum was placed on the anterior lip of the cervix. The cervix was serially dilated to accommodate the hysteroscope. Hysteroscope was advanced to the fundus the uterus and distended with normal saline as distention media. Uterine cavity was normal-appearing and bilateral tubal ostia were visualized. Hysteroscope was then removed. A sharp curettage was performed. Endometrial curettings were sent to pathology for review. Uterus sounded to 7.5 cm. The Mirena IUD was placed in usual fashion and the IUD strings were trimmed to 2 cm. Bleeding was hemostatic. All instruments were removed from the vagina. A vaginal sweep was performed. All instruments were correct. The patient was taken to recovery in stable condition. Grafts/Implants Used: Mirena IUD - Complications None - Admit VTE Documentation VTE Present on Admission: No VTE Mechan Device Prophylaxis: SCD's
--- NOTE | 2020-06-15 13:38 | DCINST_ITS ---
Discharge Diet: No Restrictions Discharge Activity: May Drive - 24 hours after surgery, May Shower, May Take a Tub Bath - after the vaginal bleeding stops so in about 1-2 weeks May resume sexual activity in: 1-2 weeks - after the bleeding stops Weight Bearing Status: Weight bearing as tolerated Lifting Restrictions: No restrictions Additional Activity Instructions:: Nothing in the vagina (no intercourse, tampons, hot tubs, tub baths, pools) for 1-2 weeks or until the bleeding stops Call your doctor if you observe: Fever of 101 or Higher, Inability to urinate, Inability to have a bowel movement, Using more than one pad per hour, Shortness of breath, Dizziness, Chest pain, Increased palpitations (irregular heartbeat), Calf discomfort, Uncontrolled pain Allergies/Adverse Reactions: Allergies erythromycin base [Erythromycin Base] Adverse Reaction (Verified 06/15/20 10:05) Nausea hydrocodone bitartrate [From Vicodin] Adverse Reaction (Verified 06/15/20 10:05) Other Medications to take at Discharge Aspirin [Aspirin, Baby] 81 mg PO DAILY@0800 12/25/18 Cholecalciferol (VIT D3) [Vitamin D3] 1,000 units PO DAILY 12/25/18 Clonazepam 2 mg PO QHS 12/25/18 Folic Acid 2 mg PO DAILY 12/25/18 Tizanidine HCl 4 mg PO DAILY PRN PRN 12/25/18 oxycodone-acetaminophen 5 mg-325 mg tablet 1 - 2 tab PO Q4H PRN PRN tab 04/22/19 promethazine 25 mg tablet 25 mg PO Q6H PRN PRN tab 04/22/19 topiramate 200 mg tablet 400 mg PO BID 04/22/19 Magnesium Oxide [Magnesium] 500 mg PO BID 11/11/19 Norethindrone 0.35 mg PO DAILY 06/08/20 Rimegepant Sulfate [Nurtec Odt] 75 mg PO PRN PRN 06/08/20 Primary Care Physician: Nikky Pillai MD [Primary Care Provider] - Test Results: Test results from this visit will be discussed in further detail at your follow- up appointment, if applicable. Please Follow Up With: Marina Xavier DO When: 2 weeks
== END 2020-06-15 14:02 | disposition home or self-care (01) ==
LOC: SDC 09:16 → AC 09:17
PROVIDERS: PCP Family Medicine; Referring Provider Obstetrics & Gynecology; Visit Provider Obstetrics & Gynecology
PROC: 0UB98ZZ Excision of Uterus, Via Natural or Artificial Opening Endoscopic (ICD-10-PCS; CPT 58558; principal; 2020-06-15 10:55)
DX: N93.8 Other specified abnormal uterine and vaginal bleeding (principal); R93.89 Abnormal findings on diagnostic imaging of other specified body structures
CPT/HCPCS: 00952; 58300; 58558; 81025; 85027; 86850; 86900; 86901; 88305; J7120; A4216; J2405

== ENCOUNTER → 2020-08-29 14:41 | Outpatient (CLI) | payer OTHER, SELFPAY ==
[2020-06-15 10:08] VITALS: BMI 22.1
--- NOTE | 2020-08-29 14:43 | CT_ITS ---
STUDY: CT ABDOMEN AND PELVIS WITH CONTRAST REASON FOR EXAM: Female, 45 years old. Abdominal pain, LLQ tenderness. Prior cholecystectomy, IUD, kidney stones removed. RADIATION DOSAGE (If Supplied By Facility): CTDIvol = ( 7.88 ) mGy, DLP = ( 415.84 ) mGycm TECHNIQUE: Transaxial images were obtained from the dome of the diaphragm to the symphysis pubis with oral contrast. Oral and amp; IV Readi-CAT and amp; 75mL Isovue-300 was administered. Sagittal and coronal images were reconstructed. Individualized dose optimization techniques were used for this CT. COMPARISON: Comparison is made with prior study dated 01/09/2019. FINDINGS: The visualized lung bases are unremarkable. The visualized portions of the heart are within normal limits. Normal liver. The patient is status post cholecystectomy. Normal spleen. Normal pancreas. Normal bilateral adrenal glands. Normal right kidney. Normal left kidney. Normal visualized stomach. Normal small intestine. Normal colon. The appendix is visualized and appears normal. Normal abdominal aorta. Normal inferior vena cava. Normal retroperitoneum. Normal urinary bladder. IUD is seen within the uterus. There is a 2.7 cm x 2.3 cm cyst in the left ovary. Normal abdominal wall. Normal osseous structures. CT/Abdomen/Pelvis WITH Contrast IMPRESSION: 2.7 cm x 2.3 cm cyst in the left ovary. Electronically Signed: Chirag Mock, at 15:12 EST , Service support ,
[2020-08-29] MEDS: 0.9% Saline Lock 10 ML Syringe IV (15:00)
== END ==
PROVIDERS: PCP Family Medicine; Referring Provider Family Medicine; Visit Provider Family Medicine
DX: R10.9 Unspecified abdominal pain (principal)
CPT/HCPCS: 74177; Q9967; A4216

== ENCOUNTER 2020-09-21 11:15 | Day surgery (SDC) | payer OTHER, SELFPAY ==
[2020-06-15 10:08] VITALS: BMI 22.1
--- NOTE | 2020-09-20 15:26 | PCM.HPOB.BLA ---
- Problem List (1) Pelvic pain Status: Acute History and Physical Date of Admission: 09/21/20 DATE OF SERVICE: September 11, 2020 ? PROBLEM:?persistent pelvic pain ? DIAGNOSIS:?persistent pelvic pain ? PAST SURGICAL HISTORY:? PAST SURGICAL HISTORY PAST SURGICAL HISTORY Procedure Laterality Date ? BOTOX ? beginning of 2011 ? x3 rounds ? HYSTEROSCOPY ? 06/15/2020 ? Hysteroscopy D&C at [facility]-Dr. Xavier ? INSERTION OF IUD ? 06/15/2020 ? Mirena IUD insertion ? LAP CHOLECYSTECT/CHOLANGIOGRAPHY ? 10-20-15 ? LIGATE FALLOPIAN TUBE ? ? ? Tubal ligation ? PAST SURGICAL HISTORY OF ?kidney stone removal and stent ? PAST SURGICAL HISTORY OF ?fissurectomy ? PLASTIC SURG - PACKAGE ? 11/2013 most recent ? x4- facial nerves for headaches ? PORT ? ? ? port placed 11/2018 ? PAST MEDICAL HISTORY:? PAST MEDICAL HISTORY PAST MEDICAL HISTORY Diagnosis Date ? Anal fissure ? ? Hemiplegic migraine ? ? Migraine ? ? Renal calculi ? ? Status migrainosus 09/2010 ? SUBJECTIVE:?LLQ pain that is unchanged from prior visits.?No GI or symptoms. IUD in place.? ? SOCIAL HISTORY:? SOCIAL HISTORY Social History ? Tobacco Use ? Smoking status: Never Smoker ? Smokeless tobacco: Never Used Substance Use Topics ? Alcohol use: No ? Drug use: No ? ? Comment: very little ? Allergies: ?Arithromycin [Azith* ???GI Upset ?Erythromycin ?GI Upset ?Vicodin [Hydrocodon* ???Intolerance ??Comment:Worsened migraines ? Current Outpatient Medications on File Prior to Visit Medication Sig ? levonorgestrel (MIRENA) 20 mcg/24 hours (5 yrs) 52 mg IUD 1 Each by INTRAUTERINE route one time only. ? NURTEC ODT [address] ONE TABLET IN MOUTH AT ONSET OF HEADACHE. DO NOT EXCEED 1 TABLET IN A 24 HOUR PERIOD ? tiZANidine HCl 4 mg capsule tiZANidine Tizanidine Hcl Active 4 MG DAILY NEEDED December 25, 2018 8:47pm 12-25-2018 ?[facility] ([id number]) ? aspirin, enteric coated (ASPIRIN, ENTERIC COATED) 81 mg EC tablet Take 81 mg by mouth once daily. ? FOLIC ACID ORAL Take by mouth. ? clonazePAM (KLONOPIN) 1 mg tablet Take 2 mg by mouth at bedtime as needed. ? cholecalciferol (VITAMIN D) 1,000 unit tab tablet Take 1,000 Units by mouth once daily. ? topiramate (TOPAMAX) 200 mg tablet Take 800 mg by mouth twice daily. ? splj-[id number]-UWO 160 mg iron-1 mg-60 mcg tab Take 1 tablet by mouth once daily. ? Magnesium Oxide 500 mg tab Take 1,000 mg by mouth once daily. ? oxyCODONE-acetaminophen (PERCOCET) 10-325 mg tablet Take 1 tablet by mouth every 4 hours as needed. ? PHENERGAN 25 MG TAB Take one (1) tablet three(3) times daily as needed. nausea ?or headache No current facility-administered medications on file prior to visit.? ? ? OBJECTIVE: ? VITALS:? BP 100/60 ? Pulse 66 ? Resp 16 ? Ht 5' 2 (1.575 m) ? Wt 122 lb 6.4 oz (55.5 kg) ? LMP 06/15/2020 ? BMI 22.39 kg/m? ? HEENT: ?Normocephalic, atraumatic, Mucus membranes moist without lesions. ? NECK: ???Soft and Supple. ?No adenopathy , thyromegaly or bruits. ? SKIN: No lesions. ? CHEST: Clear to auscultation. ?No wheezes or rales. ?Good air exchange. ? HEART: Regular rate and rhythm ?No S3 or S4. ?No gallops or rubs. ? BACK: Nontender with no CVA tenderness. ? ABDOMEN: Soft, non-tender, non-distended, no masses, no hepatosplenomegaly. ? LOWER EXTREMITIES: There was no pitting edema, no palpable cords and no skin changes.? ? Pelvic US: Indication pelvic pain Impression Normal appearing anteverted uterus that measures 87 mm x 42 mm x 48 mm. 3-D imaging of the uterus confirms the proper location of the IUD within the endometrial cavity. There is a small, 2 cm complex appearing right ovarian cyst which is most likely a ?hemorrhagic cyst. There is a small, 2.4 cm mostly simple appearing left ovarian cyst with a single, thin septation present. There is no free fluid visualized in the peritoneal cavity. Recommendations Consider a follow up ultrasound in 6-8 weeks to re-evaluate. Clinical correlation recommended. Menstrual History Contraception: Intrauterine contraceptive device Method Transvaginal, 3D ultrasound examination. Uterus Uterus: Visualized Uterus position: anteverted Uterus long 87 mm Uterus ap 42 mm Uterus tr 48 mm Uterus Vol 90.4 cm? Endometrial thickness, total 6.7 mm IUCD Position control Location: placed correctly at the fundus of the uterus Right Ovary Rt ovary: Visualized Rt ovary D1 21 mm Rt ovary D2 18 mm Rt ovary D3 18 mm Rt ovary Vol 3.5 cm? Rt ovarian cyst D1 20 mm Rt ovarian cyst D2 16 mm Rt ovarian cyst D3 17 mm Rt ovarian cyst mean 17.7 mm Rt ovarian cyst vol 2.848 cm? Rt ovarian cyst findings: complex cyst Left Ovary Lt ovary: Visualized Lt ovary D1 26 mm Lt ovary D2 22 mm Lt ovary D3 31 mm Lt ovary Vol 9.2 cm? Lt ovarian cyst D1 24 mm Lt ovarian cyst D2 16 mm Lt ovarian cyst D3 22 mm Lt ovarian cyst mean 20.7 mm Lt ovarian cyst vol 4.423 cm? Lt ovarian cyst findings: simple cyst, with septation Cul de Sac Visualized. no free fluid visualized ? ? ASSESSMENT:?pelvic pain ? PLAN:?The pain has been persistent and affecting her daily life, and she desires surgery. She says she has always had LLQ pain that she attributes to her left ovary. Discussed that the surgery could worsen and/or not improve her pain. Also discussed that the ovaries could look normal at the time of the surgery. She understands that she will continue to develop ovarian cysts given that she is pre menopausal. She understands that the current cysts are most likely to resolve by the time of surgery. Reviewed risks of an oophorectomy - discussed if the left ovary is removed, and she then develops cysts etc on the right ovary, and if the right ovary is removed she will enter menopause. Reviewed health risks with early menopause. Discussed alternatives to surgery: removal of IUD, repeat ultrasound, going to pelvic pain clinic for a second opinion.?The?surgery was discussed in addition to risks, benefits, and alternatives. ?General pre- and post-operative care was reviewed. ?Questions were answered. ?After discussion, the patient indicated a desire to proceed with the planned surgery. Will plan for diagnostic laparoscopy, bilateral salpingectomy, possible peritoneal biopsy, possible oophorectomy. The patient states if pelvis appears normal, she desires to have the left ovary removed. If there is some indication for the cause of her pain on diagnostic laparoscopy other than ovarian cysts, she does not want the left ovary removed. She understands that I cannot evaluate the bowel etc. She desires to keep IUD in place.? ? Marina Xavier,?DO
[2020-09-21 11:51] VITALS: BP 106/61; PULSE 59; RESP 18; TEMP 37.7; O2SAT 100; BMI 23.2
[2020-09-21 12:07] LABS: Hematocrit 39.7 % (37-47); Hemoglobin 12.7 g/dL (12.0-15.0); Mean Corpuscular Hgb 29.7 pg (27.0-32.0); Mean Corpuscular Volume 92.8 fL (81-99); Mean Platelet Vol. 10.6 fl (6.2-12.0); Platelet Count 145 K/mm3 (150-450); RBC Distribution Width CV 12.6 % (11.6-14.6); RBC Distribution Width SD 43.1 fl (35.1-43.9); Red Blood Count 4.28 M/mm3 (4.2-5.4); White Blood Count 4.7 K/mm3 (4.4-11.0)
[2020-09-21 12:16] LABS: Prothrombin Time (Protime)PT. 12.4 SECONDS (11.7-14.9)
[2020-09-21 12:17] LABS: Partial Thromboplast Time 22.6 Seconds (24.1-36.2)
[2020-09-21] MEDS: Lactated Ringers 1,000 ML 100 ML IV ×2 (12:23→14:31)
[2020-09-21 13:00] LABS: AST(SGOT) 13 U/L (15-37); Alanine Aminotransfer ALT/SGPT 29 U/L (13-56); Albumin, Serum 3.5 g/dL (3.2-5.0); Alkaline Phosphatase 53 U/L (45-117); Bilirubin, Direct 0.06 mg/dL (0.00-0.30); Globulin 2.8 g/dL (2.2-4.2); Protein, Total 6.3 g/dL (6.4-8.2)
--- NOTE | 2020-09-21 13:00 | OV_PTH ---
PATIENT: AKIL REYEZ LOC: [facility] – [place], [place] U#:[id number] AGE/SX: 45/F ROOM: RE09/21/[address]: Dr. Marina Xavier DO : 1975 BED: DIS: 09/21/2020 SPEC #: [id number] RECD: 09/21/20 14:51 STATUS: YAMILET [place] #: [id number] NATO: 09/21/20 13:[address]: Marina Xavier DEPT: SURGICAL PATHOLOGY RECD BY: Irish Zayas ENTERED: 09/22/20 07:41 SP TYPE: OVARY OTHR DR: Dr. Nikky Pillai MD Tissues: Ovary, NOS Procedures: Surgery Specimen Level IV HEADER OPERATION: Diagnostic laparoscopic bilateral salpingectomy, left oophorectomy PRE-OP DIAGNOSIS: Pelvic pain TISSUE SUBMITTED: Bilateral fallopian tubes, left ovary MICROSCOPIC DIAGNOSIS Bilateral fallopian tubes and left ovary: Left ovary - Benign corpus luteal and follicular cysts. Left fallopian tube - Benign paratubal cysts. Right fallopian tube - no pathologic change. AM:juarez 09/25/20 MICROSCOPIC DESCRIPTION Slides are reviewed. GROSS DESCRIPTION Received in fixative is one container labeled with the patient's name and designated bilateral fallopian tubes and left ovary. The specimen consists of two fallopian tubes, one with adjacent ovary. The right fallopian tube measures 5 cm in length and 0.5 cm in average diameter. A normal fimbriated end is present. The left fallopian tube measures 4.2 cm in length and 0.4 cm in average diameter. No tubo-ovarian adhesions are identified. A normal fimbriated end is present. The soft tissue adjacent to the fallopian tube contains two smooth, glistening cysts containing clear fluid. The cyst range in size from 0.3 to 0.6 cm in greatest dimension. The smooth, glistening left ovary measures 3 x 2 x 1 cm. Serial sections of the ovary reveal several cysts ranging in size from 0.2 to 0.6 cm. Intelligence Engineer sections are submitted in three cassettes as follows: 1 - right fallopian tube, 2 - left fallopian tube and paratubal cyst, 3 - left ovary. / AM:juarez 09/22/20 TC:3 CPT: 34502 x2
[2020-09-21] MEDS: Lubricating Jelly 60 GM Tube 30 GM TOPICAL (13:25)
[2020-09-21] MEDS: Bupivacaine Mpf 0.5% 30 ML VIAL (13:40)
--- NOTE | 2020-09-21 13:50 | OP.PCM_ITS ---
Problem List (1) Pelvic pain Status: Acute Report of Operation Date of Procedure: 09/21/20 Pre-Operative Diagnosis: Persistent LLQ pelvic pain Post-Operative Diagnosis: As above Surgery/Procedure Performed:: Diagnostic laparoscopy, bilateral salpingectomy, left oophorectomy Description of Surgical Findings:: Normal-appearing pelvis. Uterus is normal-appearing. Prior partial salpingect maurice noted. Fimbriated ends of the fallopian tubes were remaining. Normal- appearing fimbriated ends of the fallopian tubes bilaterally. The left ovary was normal-appearing. The right ovary is normal-appearing. Type of Anesthesia:: General Special Medications: None Specimen's removed: Bilateral fallopian tubes, left ovary Drains: None Estimated Blood Loss (mL): < 50 cc Fluids Replaced: 700 Description of Procedure: Indications: The patient has had persistent LLQ pain. Has had physiologic cysts on pelvic US. Her PCP ordered a CTAP that showed an ovarian cyst. The patient has a Mirena IUD in place. She declined removal of the IUD. She reported the pain was so severe that it was interfering with her life. She desired to proceed with surgery. Start time: 1322 Stop time: 1351 The patient was taken to the operating room where general anesthesia was induced. She was prepped and draped in the dorsal lithotomy position using yellowfin stirrups. From below a weighted speculum was placed to expose the cervix. IUD strings were noted. The anterior lip of the cervix was grasped with a single-tooth tenaculum. A Luis Armando cannula was placed for uterine manipulation. Gloves were then changed and attention was turned to the abdominal portion of the case. All port sites were infiltrated with local. An incision was made infraumbilically to accommodate a 5 mm port. This port was placed direct visualization using the laparoscope. Once confirmed intraperitoneal, CO2 insufflation was initiated. The patient was placed in Trendelenburg. A left lateral 5 mm port was placed. A right lateral 5 mm port was placed. The pelvis was inspected. Pictures were taken for the patient. The pelvis was normal-appearing. Prior bilateral, partial salpingectomy noted. On the left side, the ureter was easily identified. The left ovary and fallopian tube were elevated out of the pelvis. Using the LigaSure device, the infundibulopelvic ligament was serially clamped, cauterized, transected. The suspensory ligament of the ovary was then serially clamped, cauterized, and transected using the LigaSure device. The left fallopian tube and ovary were removed using an Endo Catch bag through the 5 mm port. Next the right fallopian tube was elevated out of the pelvis and followed out to the fimbriated end. The LigaSure device was used to serially clamp, cauterize, and transect along the mesosalpinx. The right fallopian tube was removed and sent to pathology for review, along with the left ovary and tube. Hemostasis was noted. All ports were removed. The abdomen was exsufflated. The port sites were closed with Monocryl and glue. From below all instruments were removed from the vagina and a vaginal sweep was performed. Instrument, sponge, needle counts were correct. The patient was taken to the recovery in stable condition. Grafts/Implants Used: None - Complications None - Admit VTE Documentation VTE Present on Admission: No VTE Pharm Prophylaxis ordered?: No
--- NOTE | 2020-09-21 14:00 | DCINST_ITS ---
- Discharge Diagnoses Current Active Problems: Current Active and Chronic Problems (Last Updated 04/22/19 @ 09:32 by Shandra De La O) Pelvic pain (Acute) You will use the following diet at home:: No restrictions Your food should be the consistency of: Regular Discharge Activity: May Drive - Once you feel strong enough to slam on a break or turn a steering wheel sharply, May not drive while taking narcotic pain medications. May shower in (days): 1 May resume sexual activity in: 1 week - Once the bleeding stops Weight Bearing Status: Weight bearing as tolerated Lifting Restrictions: Nothing greater than 5-10 lbs for 2 weeks Call your doctor if your incision/area has: Continuous Slow Oozing, Sudden Increased Bleeding, Increased Pain/ Swelling, Increased Redness, Foul Smelling Discharge, Swelling at the incision site Call your doctor if you observe: Fever of 101 or Higher, Inability to urinate, Inability to have a bowel movement, Using more than one pad per hour, Shortness of breath, Dizziness, Fainting spells, Swelling in the ankles, Chest pain, Increased palpitations (irregular heartbeat), Calf discomfort, Uncontrolled pain Cleanse incision/area with: Soap & Water - The glue will fall off over time. There are sutures under the glue Allergies/Adverse Reactions: Allergies erythromycin base [Erythromycin Base] Adverse Reaction (Verified 09/21/20 11:50) Nausea hydrocodone bitartrate [From Vicodin] Adverse Reaction (Verified 09/21/20 11:50) Other Medications to take at Discharge Aspirin [Aspirin, Baby] 81 mg PO DAILY@0800 12/25/18 Cholecalciferol (VIT D3) [Vitamin D3] 1,000 units PO DAILY 12/25/18 Clonazepam 2 mg PO QHS 12/25/18 Folic Acid 2 mg PO DAILY 12/25/18 Tizanidine HCl 4 mg PO DAILY PRN PRN 12/25/18 oxycodone-acetaminophen 5 mg-325 mg tablet 1 - 2 tab PO Q4H PRN PRN tab 04/22/19 promethazine 25 mg tablet 25 mg PO Q6H PRN PRN tab 04/22/19 topiramate 200 mg tablet 400 mg PO BID 04/22/19 Magnesium Oxide [Magnesium] 500 mg PO BID 11/11/19 Rimegepant Sulfate [Nurtec Odt] 75 mg PO PRN PRN 06/08/20 Biotin 10,000 mcg PO DAILY 09/15/20 Mirena 1 vag ring VAGINAL DAILY 09/15/20 Oxycodone HCl/Acetaminophen [Percocet 5/325] 1 tablet PO Q6H PRN PRN 7 Days #10 tablet 09/21/20 The following prescriptions were given: Oxycodone HCl/Acetaminophen [Percocet 5/325] 1 tablet PO Q6H PRN PRN 7 Days #10 tablet PRN Reason: Pain Score 6-10 Transmission Status: Sent to [facility] Primary Care Physician: Nikky Pillai MD [Primary Care Provider] - Test Results: Test results from this visit will be discussed in further detail at your follow- up appointment, if applicable. Please Follow Up With: Marina Xavier DO When: 1-2 weeks
[2020-09-21 14:04] VITALS: BP 106/61; BP 106/69; PULSE 62; RESP 15; TEMP 36.8; O2SAT 100
[2020-09-21 14:15] VITALS: BP 101/54; BP 106/61; PULSE 55; RESP 16; O2SAT 98
[2020-09-21 14:30] VITALS: BP 106/61; BP 88/57; PULSE 53; RESP 16; O2SAT 97
[2020-09-21 14:35] VITALS: BP 106/61; BP 94/51; PULSE 56; RESP 16; TEMP 36.8; O2SAT 100
[2020-09-21] MEDS: oxyCODONE 5 MG Tablet PO (15:14)
[2020-09-21] MEDS: Acetaminophen 325 MG Tablet PO (15:14)
[2020-09-21 16:26] VITALS: BP 106/61; BP 97/57; PULSE 59; RESP 16; TEMP 36.8; O2SAT 99
== END 2020-09-21 16:27 | disposition home or self-care (01) ==
LOC: SDC 11:16 → AC 11:16
PROVIDERS: Anesthesiology; PCP Family Medicine; Referring Provider Obstetrics & Gynecology; Visit Provider Obstetrics & Gynecology
PROC: (CPT 58661; principal; 2020-09-21 12:45)
DX: R10.2 Pelvic and perineal pain (principal); N83.02 Follicular cyst of left ovary; N83.12 Corpus luteum cyst of left ovary; G43.409 Hemiplegic migraine, not intractable, without status migrainosus; Z79.899 Other long term (current) drug therapy; Z79.82 Long term (current) use of aspirin; Z97.5 Presence of (intrauterine) contraceptive device; Z20.828 Contact with and (suspected) exposure to other viral communicable diseases
CPT/HCPCS: 00840; 58661; 80076; 85027; 85610; 85730; 86850; 86900; 86901; 87426; 88305; C9803; J7120; A4216; J2405

== ENCOUNTER → 2021-02-23 12:53 | Outpatient (CLI) | payer OTHER, SELFPAY ==
--- NOTE | 2021-02-23 13:45 | MRI_ITS ---
HISTORY: TIA, AMS EXAMINATION: MR Brain WO/W Contrast TECHNIQUE: Multiplanar and multisequence MR images of the brain were obtained with and without IV gadolinium. IV Contrast dosage and agent: 11ml Dotarem COMPARISON: 05/29/15 FINDINGS: BRAIN PARENCHYMA: No MRI evidence of hemorrhage. No evidence of acute infarct. No intracranial mass or mass effect. No abnormal enhancement. There is preservation of the hernandez/white matter interface. Normal sella turcica, pituitary gland, infundibular stalk, optic chiasm and hypothalamus. The internal auditory canals are patent. Posterior fossa structures are unremarkable. CSF SPACES: Appropriate for age. No hydrocephalus. Basal cisterns are patent. VASCULAR SYSTEM: Normal flow voids in the major intracranial circulation. CALVARIUM, SKULL BASE, PARANASAL SINUSES AND MASTOID AIR CELLS: Clear. No discrete lytic or blastic abnormalities. ORBITS: Both globes, extraocular muscles, optic nerves and retrobulbar fat appear unremarkable. MRI/Brain W/WO Contrast IMPRESSION: Unremarkable pre and post-contrast MRI brain. at 1513 Reported and signed by: Evan Beyer MD Electronically Signed: Evan Beyer MD at 15:11 EDT Tel , Service support ,
[2021-02-23] MEDS: 0.9% Saline Lock 10 ML Syringe IV (14:15)
== END ==
PROVIDERS: PCP Family Medicine; Referring Provider Psychiatry & Neurology Neurology; Visit Provider Psychiatry & Neurology Neurology
DX: R41.82 Altered mental status, unspecified (principal)
CPT/HCPCS: 70553; A9575; A4216

== ENCOUNTER → 2022-02-07 | Outpatient (CLI) | payer OTHER, SELFPAY ==
--- NOTE | 2022-02-07 09:37 | NM_ITS ---
Gastric emptying study INDICATION: Abdominal pain TECHNIQUE: After the administration of 1.1 mCi of technetium 99m sulfur colloid in a meal of oatmeal orally, multiple scintigraphic images of the abdomen were obtained. Furthermore, counts were obtained in the gastric emptying curve was plotted. FINDINGS: Normal uptake within the stomach and passes through the duodenum into the small bowel. After 1 hour, there is 91% gastric retention which is elevated. T1 half is 311 minutes which is markedly prolonged. IMPRESSION: Delayed gastric emptying. Electronically Signed: Nghia Villegas MD at 11:26 EDT , NM/Gastric Emptying Study
== END | disposition home or self-care (01) ==
LOC: NM 09:32
PROVIDERS: PCP Family Medicine; Referring Provider Internal Medicine Gastroenterology; Visit Provider Internal Medicine Gastroenterology
DX: R06.6 Hiccough (principal); J04.0 Acute laryngitis
CPT/HCPCS: 78264; A9541

== ENCOUNTER 2022-02-21 06:13 | Day surgery (SDC) | payer OTHER, SELFPAY ==
--- NOTE | 2022-02-21 | IMM_PTH ---
PATIENT: AKIL REYEZ LOC: [place] U#:[id number] AGE/SX: 46/F ROOM: RE02/21/[address]: Dr. Jamie Cuevas DO : 1975 BED: DIS: 02/21/2022 SPEC #: [id number] RECD: 02/22/22 14:04 STATUS: YAMILET REQ #: [id number] NATO: 02/21/22 00:[address]: Jamie Cuevas DEPT: IMMUNOHISTOCHEMISTRY RECD BY: Aura Medina ENTERED: 02/22/22 14:05 SP TYPE: IMMUNO OT DR: Dr. Nikky Pillai MD Tissues: Esophagus, NOS Procedures: P53 (initial) KI-67 (add) PHYSICIAN & INSTITUTION [place] [id number] SPECIMEN INFORMATION: Tissue Source: Distal esophagus, biopsy Clinical Info: Hiccups, laryngitis Specimen Number: [id number] CPT code: 70373, 78922 METHODOLOGY: Deparaffinized sections of prefer/formalin-fixed tissue or PAP/DQ stained slides are incubated with monoclonal/polyclonal antibodies/oligonucleotide probes. Localization is made via biotin free immunoperoxidase method. Appropriate controls are performed and reacted as expected. Results on target cell population are indicated in the following table: RESULTS: ANTIBODY / CLONE RESULT P53 (DO-7) negative Ki-67 (30-9) positive, low These tests were developed and their performance characteristics determined by [facility]. They may not have been cleared or approved by the U.S. Food and Drug Administration. The FDA has determined that such clearance or approval is not necessary. The above immunohistochemical/dualISH markers are ordered and reviewed by the Pathologist. INTERPRETATION: Distal esophagus, biopsy: Negative for dysplasia. GABRIEL:juarez 02/25/2022
--- NOTE | 2022-02-21 06:33 | PCM.HP.BLA ---
History and Physical Date of Admission: 02/21/22 AKIL REYEZ, is a 46 F who presents to the office today for Evaluation of recurrent hiccups. Akil became established with this clinic 3 following referral from PCP Dr. Pillai. Since 2018 she has been getting hiccups 6-7 times a day. When hiccups are ongoing she will feel ill. Alleviating factors include drinking water. PCP started omeprazole and Valium PRN for a month which was very helpful, however when she stopped the hiccups returned. CT abd/pel 08.29.20 finding a cyst of the left ovary. Imaging reviewed and stomach noted to be enlarged with food contents. Additional medical history includes migraines managed with Topamax, ubrevly and viepti infusions. Previous surgeries include hysteroscopy 06.15.20, cholecystectomy 10.20.15, fissurectomy, facial nerve surgery for hemiplegic migraines, port placement. ROS Const Constitutional: No fatigue, malaise, night sweats, weight change, sleep problems, abnormal sleep pattern or change in appetite ENT ENT: No difficulty swallowing, hoarseness or sore throat Cardio Cardiology: No chest pain at rest Gastro GI: No abdominal pain, belching, bloating, change in bowel habits, change in stool character, coffee ground emesis, constipation, cramping, diarrhea, difficulty swallowing, feeling full early, excessive flatus, incontinent of stools, Vomiting blood/hematemesis, Blood in stool, loose stools, Black,tarry stools, pain with swallowing, vomiting or other Musc Musculoskeletal: No joint pain Skin Skin: No yellowing of the eye or itchy eyes Neuro Neurology: No behavioral changes Psych Psychiatric: No abnormal sleep pattern, No behavioral changes, No change in appetite and No depression Endo Endocrine: No fatigue or weight change Aller/Imm Allergy/Immunologic: No itchy eyes Chu/Lymp Hematologic/Lymphatic: No easy bleeding Exam Const General: cooperative and comfortable Nutritional Appearance: average body habitus and well nourished HENMT Head: normal to inspection Ears: hearing grossly normal bilaterally Nose: external nose normal Face and sinus: normal facial exam Mouth: oral mucosae normal Throat: posterior oropharynx normal Eyes General: appearance normal, both eyes and all related structures Neck Neck: normal visual inspection Chest Chest palpation & inspection: normal inspection of the chest and normal palpation of entire chest wall Resp Effort & Inspection: normal respiratory effort Auscultation: Bilateral: Clear to Auscultation Cardio Palpation: normal PMI Rate: regular rate Rhythm: regular rhythm GI Inspection: normal to inspection Auscultation: normal bowel sounds Percussion: normal to percussion Palpation: no hepatosplenomegaly Skin General: no rashes or lesions noted Neuro General: patient alert Extrem General: normal to inspection Psych Affect: normal affect Quality Reporting Tobacco Screening (CMS 138) Smoking Status: Never smoker Assessment and Plan Assessment and Plan (1) Hiccups: Status: Acute Plan - Dr. Ayala Friend, DO: We reviewed her CT scan of the abdomen pelvis that she had back in 09/08/2020 and it did show some retained food in the stomach. She has been experiencing some problems with nausea and bloating without vomiting. 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 As her medicines have been making her constipated for which she takes magnesium on a daily basis. There is an entity called magnesium induced gastroparesis also due to saturation of enteric plexuses. She should undergo an upper endoscopy to evaluate her upper GI tract with Lee placement to see if she is having excess acid or decreased pH esophagus and to see if there is any retained food in the stomach secondary to also from nonsteroidals that she takes for migraines. (2) Laryngitis: Status: Acute Plan - Dr. Ayala Friend, DO: We will also look at her larynx to see if there is any inflammation consistent with acid regurgitation to the level of the oropharynx.
[2022-02-21 06:40] VITALS: BP 122/70; PULSE 85; RESP 16; TEMP 37.1; O2SAT 100; BMI 22.9
[2022-02-21] MEDS: Lactated Ringers 1,000 ML 15 ML IV (06:50)
--- NOTE | 2022-02-21 07:30 | EGD_PTH ---
PATIENT: AKIL REYEZ LOC: [place] U#:[id number] AGE/SX: 46/F ROOM: RE02/21/[address]: Dr. Jamie Cuevas DO : 1975 BED: DIS: 02/21/2022 SPEC #: [id number] RECD: 02/21/22 10:50 STATUS: YAMILET REJudit #: [id number] ANTO: 02/21/22 07:[address]: Jamie Cuevas DEPT: SURGICAL PATHOLOGY RECD BY: Irish Zayas ENTERED: 02/21/22 11:45 SP TYPE: EGD BIOPSY SHAISTA DR: Dr. 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 Acute and chronic inflammation. Negative for dysplasia. See comment. GABRIEL:juarez 02/22/2022 COMMENT Alcian blue/PAS stain with matched control is used in the evaluation of the specimen. Immunohistochemistry ([id number]) for P53 and Ki-67 will be performed and results will be reported separately. MICROSCOPIC DESCRIPTION Slides are reviewed. GROSS DESCRIPTION Received in fixative is one container labeled with the patient's name and designated biopsy distal esophagus. The specimen consists of multiple irregular fragments of light iraheta soft tissue that in aggregate measure 1 x 0.5 x 0.1 cm. The specimen is totally submitted in one cassette. / GABRIEL:juarez 02/21/2022 TC:5 CPT: 18664, 46480
[2022-02-21 07:55] VITALS: BP 102/60; BP 122/70; PULSE 78; RESP 16; TEMP 36.4; O2SAT 95
--- NOTE | 2022-02-21 07:57 | OP.CCLET_ITS ---
07/19/2022 Nikky Pillai [address] [place] [address] Re : Upper GI endoscopy procedure for Stephanie Michelle Dear Dr. Pillai This procedure was performed on February. My impressions and recommendations are as follows: Impressions : - LA Grade A reflux esophagitis. Biopsied. - Normal stomach. - Normal second portion of the duodenum. Recommendations : - Discharge patient to home. - Resume previous diet. - Continue present medications. - Await pathology results. My findings are described in the full procedure note, which is enclosed. If I can be of further assistance, please feel free to contact me at . Sincerely, Jamie Cuevas, 02/21/2022 7:57:11 AM This report has been signed electronically.
--- NOTE | 2022-02-21 07:57 | OP.EGD_ITS ---
Patient Name: Stephanie Michelle Procedure Date: 02/21/2022 7:25 AM Date of : 1975 Age: 46 Procedure: Upper GI endoscopy Indications: Failure to respond to medical treatment Providers: Jamie Cuevas DO Referring MD: Jamie Cuevas DO Medicines: Monitored Anesthesia Care Patient Profile: This is a 46 year old female. Refer to note in patient chart for documentation of history and physical. Patient has symptoms of chronic cough and chronic nausea. Complications: No immediate complications. Procedure: Pre-Anesthesia Assessment: - Prior to the procedure, a History and Physical was performed, and patient medications and allergies were reviewed. The patient is competent. The risks and benefits of the procedure and the sedation options and risks were discussed with the patient. All questions were answered and informed consent was obtained. Patient identification and proposed procedure were verified by the physician in the pre-procedure area. Mental Status Examination: alert and oriented. Airway Examination: normal oropharyngeal airway and neck mobility. Respiratory Examination: clear to auscultation. CV Examination: normal. Prophylactic Antibiotics: The patient does not require prophylactic antibiotics. Prior Anticoagulants: The patient has taken no previous anticoagulant or antiplatelet agents. After reviewing the risks and benefits, the patient was deemed in satisfactory condition to undergo the procedure. The anesthesia plan was to use moderate sedation / analgesia (conscious sedation). Immediately prior to administration of medications, the patient was re-assessed for adequacy to receive sedatives. The heart rate, respiratory rate, oxygen saturations, blood pressure, adequacy of pulmonary ventilation, and response to care were monitored throughout the procedure. The physical status of the patient was re-assessed after the procedure. After obtaining informed consent, the endoscope was passed under direct vision. Throughout the procedure, the patient's blood pressure, pulse, and oxygen saturations were monitored continuously. The gastroscope was introduced through the mouth, and advanced to the second part of duodenum. The upper GI endoscopy was accomplished without difficulty. The patient tolerated the procedure well. Scope In: 7:37:31 AM Scope Out: 7:49:55 AM Total Procedure Duration Time 0 hours 12 minutes 24 seconds Findings: LA Grade A (one or more mucosal breaks less than 5 mm, not extending between tops of 2 mucosal folds) esophagitis with no bleeding was found 37 to 38 cm from the incisors. Biopsies were taken with a cold forceps for histology. Verification of patient identification for the specimen was done. Estimated blood loss was minimal. This was biopsied with a cold forceps for histology. The CROWDER capsule with delivery system was introduced through the mouth and advanced into the esophagus, such that the CROWDER pH capsule was positioned 37 cm from the incisors, which was 6 cm proximal to the GE junction. Suction was applied to the well of the CROWDER pH capsule to suck in the adjacent mucosa of the esophagus using the external vacuum pump set at a minimum vacuum pressure of 550 mmHg for 30 seconds. The CROWDER pH capsule was then deployed by depressing the plunger on top of the handle to advance the locking pin into the mucosa, thereby attaching the capsule to the esophagus. The plunger was then rotated a quarter turn clockwise to release the capsule from the delivery system. The delivery system was then withdrawn. Endoscopy was utilized for probe placement and diagnostic evaluation. The entire examined stomach was normal. The second portion of the duodenum was normal. Impression: - LA Grade A reflux esophagitis. Biopsied. - Normal stomach. - Normal second portion of the duodenum. Recommendation: - Discharge patient to home. - Resume previous diet. - Continue present medications. - Await pathology results. Procedure Code(s): --- Professional --- 23792, Esophagogastroduodenoscopy, flexible, transoral; with biopsy, single or multiple CPT copyright 2017 [employer]. All rights reserved. The codes documented in this report are preliminary and upon tile sorter review may be revised to meet current compliance requirements. Jamie Cuevas DO 02/21/2022 7:57:11 AM This report has been signed electronically. Number of Addenda: 1 Note Initiated On: 02/21/2022 7:25 AM Addendum Number: 1 Addendum Date: 07/19/2022 6:30:59 AM MAC was used as sedation for this procedure. Jamie Ceuvas DO 07/19/2022 6:31:07 AM This report has been signed electronically.
[2022-02-21 08:00] VITALS: BP 122/70; BP 98/69; PULSE 83; RESP 16; O2SAT 98
[2022-02-21 08:05] VITALS: BP 122/70; BP 95/61; PULSE 65; RESP 16; O2SAT 97
[2022-02-21 08:10] VITALS: BP 122/70; BP 96/61; PULSE 63; RESP 16; TEMP 36.8; O2SAT 99
[2022-02-21] MEDS: 0.9% Saline Lock 10 ML Syringe IV (08:33)
[2022-02-21 08:39] VITALS: BP 122/70
--- NOTE | 2022-02-28 16:43 | PCM.HP.BLA ---
History and Physical Study: 48-hour Lee pH capsule was placed on esophagus during EGD on 02/21/22, not on PPI Indications for Lee pH Study: recurrent hiccups, retained food in stomach on CT Study Findings 48-hour overview: no significant reflux episodes. acid exposure time 0.5%, longest reflux 2.6 minutes. no episodes while supine. Using data from the worst of the two days, acid exposure time is 0.8%. Percent acid exposure time is the single parameter which has been shown to best correlate with endoscopic damage. Normal is <4.4% on the worst day, therefore this result is normal. The DeMeester Score (normal is <14.72) on the worst of the two days is 3.6 which is normal. The DeMeester Score is a method of adding weights to six common pH measurement parameters, and presenting esophageal acid exposure data as a cumulative score. Symptom Index (SI) >50% is significant (it indicates that >50% of the observed symptoms were associated with reflux). In this study, the SI is 0.0% for heartburn which is not significant. In this study, the SI is 5.6% for regurgitation which is not significant. Symptom Association Probability (SAP) helps to determine if there is a true correlation between symptoms and reflux. SAP >95% indicates a likely correlation. In this study, the SAP is 0.0% for heartburn which does not indicate a true correlation. In this study, the SAP is 98% for regurgitation which does indicate a true correlation. Interpretation Normal study Symptoms are correlated with regurgitation
== END 2022-02-21 08:42 | disposition home or self-care (01) ==
LOC: EN 06:14 → AC 06:15
PROVIDERS: PCP Family Medicine; Referring Provider Family Medicine; Visit Provider Internal Medicine Gastroenterology
PROC: 0DJ08ZZ Inspection of Upper Intestinal Tract, Via Natural or Artificial Opening Endoscopic (ICD-10-PCS; CPT 43235; principal; 2022-02-21 07:25)
DX: K21.00 Gastro-esophageal reflux disease with esophagitis, without bleeding (principal); K22.70 Barrett's esophagus without dysplasia; R06.6 Hiccough; Z79.82 Long term (current) use of aspirin; Z79.899 Other long term (current) drug therapy
CPT/HCPCS: 43239; 87426; 88305; 88313; 88341; 88342; C9803; J7120; A4216; J2405

== ENCOUNTER → 2022-03-08 | Outpatient (CLI) | payer OTHER, SELFPAY ==
[2022-03-08 10:44] LABS: Erythrocyte Sedimentation Rate 11 mm/hr (0-30)
[2022-03-08 11:15] LABS: CRP < 2.90 mg/L (0.0-3.0); Free T3 2.7 pg/mL (2.18-3.98); LDH 195 U/L (84-246); T4 Free Direct 1.04 ng/dL (0.76-1.46); Thyroid Stim Hormone (TSH) 3.74 uIU/mL (0.358-3.74)
[2022-03-09 16:08] LABS: Anti-Centromere B Ab <0.2 AI (0.0-0.9); Anti-Chromatin <0.2 AI (0.0-0.9); Anti-Jo <0.2 AI (0.0-0.9); Anti-Scleroderma-70 AB <0.2 AI (0.0-0.9); RNP Ab <0.2 AI (0.0-0.9); SJOGREN'S Anti-SS-A test < 0.2 AI (0.0-0.9); SJOGREN'S Anti-SS-B test < 0.2 AI (0.0-0.9); Smith Ab <0.2 AI (0.0-0.9)
[2022-03-09 19:59] LABS: Anti-dsDNA Ab <1 IU/mL (0-9)
[2022-03-12 08:11] LABS: Endomysial Antibody IgA Negative (Negative)
[2022-03-12 14:55] LABS: Immunoglobulin A 107 mg/dL (87-352); t-Transglutaminase IgA <2 U/mL (0-3)
[2022-03-16 06:08] LABS: Albumin 3.8 g/dL (2.9-4.4); Alpha-1-Globulins 0.2 g/dL (0.0-0.4); Angiotensin Convert Enzyme 64 U/L (14-82); Cytoplasmic Ab (C-ANCA) <1:20 titer (Neg:<1:20); Gamma Globulin 0.9 g/dL (0.4-1.8); Immunoglobulin A 111 mg/dL (87-352); Immunoglobulin G 749 mg/dL (586-1602); Immunoglobulin M 68 mg/dL (26-217); PROEL- TOTAL PROTEIN 7.3 g/dL (6.0-8.5)
[2022-03-16 11:32] LABS: Immunoglobulin E 36 IU/mL (6-495); Perinuclear Ab (P-ANCA) <1:20 titer (Neg:<1:20)
== END | disposition home or self-care (01) ==
LOC: MTLAB 09:27
PROVIDERS: PCP Family Medicine; Referring Provider Internal Medicine Gastroenterology; Visit Provider Internal Medicine Gastroenterology
DX: K20.90 Esophagitis, unspecified without bleeding (principal)
CPT/HCPCS: 36415; 82164; 82784; 82785; 83516; 83615; 84165; 84439; 84443; 84481; 85652; 86140; 86225; 86235; 86255; 86256; 86334

== ENCOUNTER → 2022-03-12 | Outpatient (CLI) | payer OTHER, SELFPAY ==
--- NOTE | 2022-03-12 13:36 | ECHOD_ITS ---
Reason For Study: Arrhythmia Procedure This was a 2D Doppler, Color Flow transthoracic echocardiogram. Exam performed in department. Left Ventricle Normal LV size. Left ventricular systolic function is normal. The estimated ejection fraction is 55 %. Normal diastology for age. No regional wall motion abnormalities noted. Right Ventricle Normal RV size. Normal systolic function. Atria Normal left atrium. Normal right atrium. Mitral Valve Bileaflet diffuse mitral valve thickening. Mild (1+) eccentric mitral valve insufficiency. Tricuspid Valve Normal tricuspid valve. Trivial tricuspid valve insufficiency. Aortic Valve Normal aortic valve. Trisinus/trileaflet aortic valve. Pulmonic Valve Normal pulmonic valve. Great Vessels Normal aortic root. The pulmonary artery is normal size. Normal inferior vena cava. Pericardium/Pleural No pericardial effusion. MMode/2D Measurements & Calculations LVIDd: 4.3 cm IVSd: 0.70 cm LA dimension: 3.1 cm LVIDs: 2.3 cm LVPWd: 0.69 cm RVDd: 2.3 cm FS: 45.2 % LAV(MOD-bp): 31.0 ml LA A4 area: 16.3 cm2 RA A4 area: 11.1 cm2 LAV(MOD-bp) Indexed: 20.1 ml/m2 LAV(MOD-sp2): 21.4 ml LAV(MOD-sp4): 38.8 ml Time Measurements MV dec time: 0.17 sec Doppler Measurements & Calculations MV E max boris: 121.3 cm/sec Lat Peak E' Boris: 16.5 cm/sec Med Peak E' Boris: 14.6 cm/sec MV A max boris: 64.2 cm/sec E/E' lat: 7.4 E/E' med: 8.3 MV E/A: 1.9 MV V2 max: 118.1 cm/sec MV P1/2t max boris: 118.1 cm/sec Ao V2 max: 102.7 cm/sec MV max P.6 mmHg MV P1/2t: 84.4 msec Ao max P.2 mmHg MV V2 mean: 52.9 cm/sec MV dec slope: 409.8 cm/sec2 MV mean P.4 mmHg MVA(P1/2t): 2.6 cm2 MV V2 VTI: 31.6 cm LV V1 max: 95.6 cm/sec MR max boris: 506.7 cm/sec PA V2 max: 80.9 cm/sec LV V1 max P.7 mmHg MR max P.7 mmHg TR max boris: 181.4 cm/sec TR max P.2 mmHg ECHO/Echo Complete Interpretation Summary Normal LV size. Left ventricular systolic function is normal. The estimated ejection fraction is 55 %. Normal diastology for age. Ordering Physician: Skip Patterson Referring Physician: Nikky Pillai M.D. Performed By: Jonatan Bejarano RCS
== END | disposition home or self-care (01) ==
LOC: CVS 13:29
PROVIDERS: PCP Family Medicine; Visit Provider Internal Medicine Cardiovascular Disease
DX: R00.1 Bradycardia, unspecified (principal)
CPT/HCPCS: 93306

== ENCOUNTER 2022-04-16 16:33 | Emergency (ER) | payer OTHER, SELFPAY ==
[2022-04-16 16:34] VITALS: BP 112/79; PULSE 74; RESP 19; TEMP 36.3; O2SAT 98; BMI 21.9
--- NOTE | 2022-04-16 17:05 | EX.ED.DYSGE1 ---
HPI History of Present Illness Chief Complaint: Abd Pain Informant: patient Narrative Narrative: Patient's been having mostly epigastric central abdominal pain. It is worse if she eats. Occasionally it radiates to the back but rarely. She had mild constipation but that is resolved. She sometimes gets a little nauseated but no vomiting. She has been having this off and on since early this year. She had a scope back approximately December. She was placed on pantoprazole twice a day. She was diagnosed with Jerome's esophagus as well as gastroparesis. Gastric emptying was severely delayed. She is not on any medication specifically for the gastroparesis. It was encouraged to stop her clonazepam which she takes every single night. Was also encouraged to use a less Percocet for headaches. She states she uses about 6 or so per month. She has no allergy to Reglan but she got it IV for headache once and got very nervous and agitated. She has never tried it orally. She sees Dr. Cuevas. [facility] Medical History Alcohol use Anxiety Blackout Bradycardia Cardiology follow-up encounter Choledocholithiasis Cholelithiasis DUB (dysfunctional uterine bleeding) Easy bruising Hemiplegic migraine History of echocardiogram History of Holter monitoring History of kidney stones Insomnia Migraines Mycobacterial pneumonia Non-smoker Syncope Home Medications cholecalciferol (vitamin D3) 25 mcg (1,000 unit) tablet 1,000 units PO DAILY supplement 12/25/18 [History Last Taken 02/20/22] folic acid 1 mg tablet 2 mg PO DAILY supplement 12/25/18 [History Last Taken 02/20/22] tizanidine 4 mg capsule 4 mg PO DAILY PRN PRN Migraine Symptoms 12/25/18 [History Last Taken 02/20/22] magnesium oxide 500 mg capsule 500 mg PO BID supplement 11/11/19 [History Last Taken 02/20/22] biotin 10,000 mcg capsule 10,000 mcg PO DAILY 09/15/20 [History Last Taken 02/20/22] aspirin 81 mg tablet,delayed release 81 mg PO DAILY 02/13/22 [History Last Taken 02/20/22] buspirone 7.5 mg tablet 7.5 mg PO BID 02/13/22 [History Last Taken 02/20/22] eptinezumab-jj 100 mg/mL intravenous solution (Vyepti) 100 mg .Route [id number] 02/13/22 [History Last Taken 02/20/22] levonorgestrel 20 mcg/24 hours (7 yrs) 52 mg intrauterine device (Mirena) 1 device intrauterine ONCE 02/13/22 [History Last Taken 02/20/22] mecobalamin (vitamin B12) 1,000 mcg disintegrating tablet,sublingual 1,000 mcg sublingual DAILY 02/13/22 [History Last Taken 02/20/22] oxycodone-acetaminophen 10 mg-325 mg tablet 1 tab PO BID PRN Pain 02/13/22 [History Last Taken 02/20/22] topiramate 200 mg tablet 100 mg PO QHS migraine 02/13/22 [History Last Taken 02/20/22] ubrogepant 100 mg tablet 100 mg PO PRN PRN Migraine Headache 02/13/22 [History Last Taken 02/20/22] omega-3 fatty acids-vitamin E 1,000 mg capsule 1,000 cap PO DAILY 02/18/22 [History Last Taken 02/20/22] promethazine 25 mg tablet 25 mg PO PRN PRN NAUSES 02/18/22 [History Last Taken 02/20/22] clonazepam 2 mg tablet 2 mg PO DAILY 02/20/22 [History Last Taken 02/20/22] trazodone 50 mg tablet 100 mg PO QHS 02/20/22 [History Last Taken 02/20/22] pantoprazole 40 mg tablet,delayed release (Protonix) 40 mg PO BID #60 tabs 03/01/22 [Rx Last Taken Unknown] sucralfate 1 gram tablet (Carafate) 1 g PO QAC #45 tabs 03/15/22 [Rx Last Taken Unknown] nirmatrelvir 300 mg (150 mg x 2)-ritonavir 100 mg tablet (EUA) See Rx Instructions PO .COMPLEX #30 tabs 03/16/22 [Rx Last Taken Unknown] benzonatate 200 mg capsule 200 mg PO BID-TID PRN cough #30 caps 03/17/22 [Rx Last Taken Unknown] metoclopramide HCl 5 mg tablet (Reglan) 5 mg PO TID PRN cramping #20 tabs 04/16/22 [Rx Last Taken Unknown] Allergy/AdvReac Type Severity Reaction Status Date / Time erythromycin base AdvReac Nausea Verified 04/16/22 16:34 [Erythromycin Base] hydrocodone bitartrate AdvReac Other Verified 04/16/22 16:34 [From Vicodin] Family History Father MVP (mitral valve prolapse) Surgical History H/O unilateral oophorectomy History of bilateral salpingectomy History of cholecystectomy History of lithotripsy Social History Smoking Status: Never smoker alcohol intake: never ROS ROS ED Constitutional Constitutional ED: Denies fever(s) or sweats ENT ENT ED: Denies rhinorrhea or sore throat Cardiovascular Cardiovascular: Denies chest pain or palpitations Respiratory/Chest Respiratory/Chest: Denies cough or dyspnea Gastrointestinal Gastrointestinal: Reports abdominal pain and other Details: See history of present illness Genitourinary Genitourinary ED: Denies dysuria or hematuria Musculoskeletal Musculoskeletal: Denies arthralgias or myalgias Integumentary Denies rash Neurologic Neurologic: Denies paresthesias or weakness Endocrine Endocrinology: Denies polydipsia or polyuria Hematologic/Lymphatic Hematologic/Lymphatic: Denies easy bleeding or easy bruising Allergic/Immunologic Allergic/Immunologic ED: Denies urticaria EXAM Physical Exam Const Vital Signs: 04/16/22 16:34 04/16/22 19:51 Temperature 97.3 F L Temperature Source Temporal Pulse Rate 74 60 Respiratory Rate 19 H 15 Blood Pressure 112/79 110/78 Blood Pressure Mean 90 Pulse Ox 98 100 Oxygen Delivery Method Room Air Positive well nourished Constitutional Narrative: Patient sitting quietly in bed. She looks quite comfortable. General Appearance ED: NAD HEENT Reports moist mucous membranes Eyes EOMs intact bilaterally General Eye ED: Negative for scleral icterus Neck no JVD Resp normal respiratory effort and clear to auscultation bilaterally Cardio regular rate, regular rhythm and no murmurs GI normal to inspection, nondistended, normoactive bowel sounds and non-tender GI Narrative: Despite her symptoms, her abdomen is actually benign. There is no tenderness on exam. Abdomen is soft. I feel no mass. Back/Spine no CVA tenderness Extremity General Extremety ED: Negative for tenderness Neuro oriented x3 Psych mental status grossly normal Skin no rashes or lesions noted MDM MDM MDM Narrative Medical decision making narrative: This summary is being done after the patient left. With complete failure of our computer systems. Some details of evaluation discussion decision making may be inadvertently missed at this time with the delay. CBC is normal. Electrolytes liver function test show no marked abnormalities. She does have a slight elevation in creatinine but this is not completely new. She had a creatinine 1.2 back about 8 years ago. I still think she can increase her fluid intake a little bit. Urine shows no acute abnormalities. is negative. I do not think the patient needs imaging. She has had endoscopy recently. Her exam is overall benign. Her symptoms are most likely due to the Jerome's esophagus as well as gastroparesis. She is on pantoprazole. I will write for some Reglan to see if this helps. She states she had once had Reglan problems when given IV. I recommend she take it with Benadryl initially. She will follow-up with Dr. Cuevas. Lab Data Attestation: I reviewed the patient's lab results. Labs: Laboratory Results - last 24 hr 04/16/22 04/16/22 04/16/22 17:50 17:55 17:55 WBC 5.0 RBC 4.62 Hgb 13.2 Hct 40.4 MCV 87.4 MCH 28.6 MCHC 32.7 RDW Std Deviation 41.6 RDW Coeff of Brian 13.1 Plt Count 193 MPV 9.7 Immature Gran % (Auto) 0.400 Neut % (Auto) 55.8 Lymph % (Auto) 32.4 [place] % (Auto) 7.4 Eos % (Auto) 3.2 Baso % (Auto) 0.8 Absolute Neuts (auto) 2.8 Absolute Lymphs (auto) 1.61 Nucleated RBC % 0 Sodium 140 Potassium 3.8 Chloride 111 H Carbon Dioxide 22.0 Anion Gap 7 BUN 16 Creatinine 1.25 H Estim Creat Clear Calc 44.48 Est GFR (MDRD) Af Amer 59 L Est GFR (MDRD) Non-Af 49 L BUN/Creatinine Ratio 12.8 Glucose 83 Calcium 9.1 Total Bilirubin 0.50 AST 18 ALT 26 Alkaline Phosphatase 84 Total Protein 7.2 Albumin 4.0 Globulin 3.2 Albumin/Globulin Ratio 1.2 Lipase 153 Serum , Qual Urine Color Yellow Urine Clarity Clear Urine pH 8.0 Ur Specific [place] 1.015 Urine Protein Negative Urine Glucose (UA) Normal Urine Ketones Negative Urine Occult Blood Negative Urine Nitrite Negative Urine Bilirubin Negative Urine Urobilinogen Normal Ur Leukocyte Esterase 500 H Urine RBC 0 SEEN Urine WBC 0-5 SEEN Ur Squamous Epith Cells 0-5 SEEN Urine Bacteria 0 SEEN Urine Mucus 0 SEEN 04/16/22 17:55 WBC RBC Hgb Hct MCV MCH MCHC RDW Std Deviation RDW Coeff of Brian Plt Count MPV Immature Gran % (Auto) Neut % (Auto) Lymph % (Auto) [place] % (Auto) Eos % (Auto) Baso % (Auto) Absolute Neuts (auto) Absolute Lymphs (auto) Nucleated RBC % Sodium Potassium Chloride Carbon Dioxide Anion Gap BUN Creatinine Estim Creat Clear Calc Est GFR (MDRD) Af Amer Est GFR (MDRD) Non-Af BUN/Creatinine Ratio Glucose Calcium Total Bilirubin AST ALT Alkaline Phosphatase Total Protein Albumin Globulin Albumin/Globulin Ratio Lipase Serum , Qual NEGATIVE Urine Color Urine Clarity Urine pH Ur Specific [place] Urine Protein Urine Glucose (UA) Urine Ketones Urine Occult Blood Urine Nitrite Urine Bilirubin Urine Urobilinogen Ur Leukocyte Esterase Urine RBC Urine WBC Ur Squamous Epith Cells Urine Bacteria Urine Mucus Discharge Plan Triage Chief Complaint: Abd Pain ED Provider: Joshua Granados Dx/Rx/DC Orders Clinical Impression: Abdominal pain, Gastroparesis, Jerome's esophagus Instructions: Gastroparesis, ED Abdominal Pain Unkn Cause Fem Prescriptions: New metoclopramide HCl [Reglan] 5 mg tablet 5 mg PO TID PRN (Reason: cramping) Qty: 20 0RF Rx Instructions: take with Benadryl as discussed No Action buspirone 7.5 mg tablet 7.5 mg PO BID Mirena 20 mcg/24 hours (7 yrs) 52 mg intrauterine device 1 device intrauterine ONCE Rx Instructions: as a single dose Ubrelvy 100 mg tablet 100 mg PO PRN PRN (Reason: Migraine Headache) Label Comments: TAKE ONE TABLET BY MOUTH AT THE ONSET OF MIGRAINE, MAY REPEAT DOSE AFTER 2 HOURS IF MIGRAINE PERSISTS. MAX 2 TABLETS PER DAY oxycodone-acetaminophen 10-325 mg tablet 1 tab PO BID PRN (Reason: Pain) Label Comments: TAKE 1 TABLET BY MOUTH UP TO TWICE DAILY AT LEAST 4 HOURS APART NEEDED FOR MIGRAINE aspirin 81 mg tablet,delayed release (DR/EC) 81 mg PO DAILY Vyepti 100 mg/mL solution 100 mg .Route [id number] Rx Instructions: every 3 monthsheadache 100 mg mecobalamin (vitamin B12) 1,000 mcg tablet,disintegrating 1,000 mcg sublingual DAILY Rx Instructions: place tablet under tongue and allow to dissolve for at least30 secs before swallowing clonazepam 2 mg tablet 2 mg PO DAILY nirmatrelvir-ritonavir 150 mg x 2- 100 mg tablet See Rx Instructions PO .COMPLEX Qty: 30 0RF Rx Instructions: take TWO 150 mg tablets of nirmatrelvir with ONE 100 mg tablet of ritonavir twice daily for 5 days PO benzonatate 200 mg capsule 200 mg PO BID-TID PRN (Reason: cough) Qty: 30 0RF topiramate 200 mg tablet 100 mg PO QHS folic acid 1 MG tablet 2 mg PO DAILY tizanidine 4 MG capsule 4 mg PO DAILY PRN PRN (Reason: Migraine Symptoms) cholecalciferol (vitamin D3) 1,000 UNIT tablet 1,000 units PO DAILY magnesium oxide 500 MG capsule 500 mg PO BID biotin 10,000 MCG capsule 10,000 mcg PO DAILY promethazine [Phenergan] 25 mg Tablet 25 mg PO PRN PRN (Reason: NAUSES) Fish Oil 1,000 mg Capsule 1,000 cap PO DAILY trazodone 50 mg tablet 100 mg PO QHS pantoprazole [Protonix] 40 mg tablet,delayed release (DR/EC) 40 mg PO BID Qty: 60 2RF Rx Instructions: take two times a day for eight weeks then once a day. sucralfate [Carafate] 1 gram tablet 1 g PO QAC Qty: 45 1RF Rx Instructions: take three times a day, one hour before meals and two hours away from other medications. Primary Care Provider: Nikky Pillai Referrals: Nikky Pillai MD [Primary Care Provider] - As Needed Friend,DO Jamie [STAFF PHYSICIAN] - As soon as possible Disposition Disposition: Home, Self Care Discharge Date/Time: 04/16/22 20:16
[2022-04-16 18:02] LABS: Bacteria 0 SEEN /hpf (None Seen); Mucous, Urine 0 SEEN /hpf (<or=2+); Red Blood Cells-Urine 0 SEEN /hpf (0-5)
[2022-04-16 18:06] LABS: Color, Urine Yellow (Yellow); Glucose, Dipstick Normal (Normal); Ketone-Dipstick Negative (Negative); Leukocyte Esterase-Dipstick 500 /ul (Negative); Nitrite-Dipstick Negative (Negative); Occult Blood-Urine Negative /ul (Negative); Protein-Dipstick Negative (Negative); Specific Gravity, Urine 1.015 (1.002-1.030); Urine Bilirubin Dipstick Negative (Negative); Urine Clarity Clear (Clear); Urine Urobilinogen Normal (Normal)
[2022-04-16 18:08] LABS: Absolute Lymphocyte Count 1.61 X10^3/uL (0.83-4.51); Absolute Neutrophil Count 2.8 X10^3/uL (2.0-7.7); Basophil# 0.04 X10^3/uL; Basophil% 0.8 % (0-1); Eosinophil# 0.16 X10^3/uL; Eosinophils% 3.2 % (0-5); Hematocrit 40.4 % (37-47); Hemoglobin 13.2 g/dL (12.0-15.0); Lymphocyte # 1.61 X10^3/ul (0.83-4.51); Lymphocyte % 32.4 % (19-41); Mean Corp Hgb Conc 32.7 g/dL (32-36); Mean Corpuscular Hgb 28.6 pg (27.0-32.0); Mean Corpuscular Volume 87.4 fL (81-99); Mean Platelet Vol. 9.7 fl (6.2-12.0); Monocyte# 0.37 X10^3/uL; Monocyte% 7.4 % (0-10); NRBC Flagged by Analyzer 0 % (0-5); Neutrophil # 2.77 X10^3/uL (2.7-7.7); Neutrophil % 55.8 % (47-70); Platelet Count 193 K/mm3 (150-450); RBC Distribution Width CV 13.1 % (11.6-14.6); RBC Distribution Width SD 41.6 fl (35.1-43.9); Red Blood Count 4.62 M/mm3 (4.2-5.4)
[2022-04-16 18:22] LABS: ALB/GLOB Ratio 1.2 RATIO (0.9-2.4); AST(SGOT) 18 U/L (15-37); Alanine Aminotransfer ALT/SGPT 26 U/L (13-56); Alkaline Phosphatase 84 U/L (45-117); Anion Gap 7 (5-15); BUN 16 mg/dL (7-18); BUN/Creat Ratio 12.8 RATIO (10-20); Calcium,Total 9.1 mg/dL (8.5-10.1); Chloride 111 mmol/L (98-107); Creatinine, Serum 1.25 mg/dL (0.55-1.02); EST Glomerular Filtration Rate 49 mL/min (>60); Est Glom Filt Rate - Afr Amer 59 mL/min (>60); Estimated Creatinine Clearance 44.48 ml/min; Globulin 3.2 g/dL (2.2-4.2); Glucose 83 mg/dL (74-106); Lipase 153 U/L (73-393); Potassium 3.8 mmol/L (3.5-5.1); Protein, Total 7.2 g/dL (6.4-8.2); Sodium Level 140 mmol/L (136-145)
[2022-04-16 18:23] LABS: Squamous Epithelial Cells - UA 0-5 SEEN /hpf (5-10); White Blood Cells 0-5 SEEN /hpf (0-5)
[2022-04-16 18:40] LABS: Internal QC Validated? YES +Cl - CLEAR BKGD; Pregnancy, Serum, hCG Quali. NEGATIVE Negative
[2022-04-16 19:51] VITALS: BP 110/78; PULSE 60; RESP 15; O2SAT 100
[2022-04-16] MEDS: Ondansetron ODT 4 MG Tablet PO (20:09)
[2022-04-16] MEDS: Dicyclomine 10 MG Capsule 20 MG PO (20:09)
== END 2022-04-16 20:16 | disposition home or self-care (01) ==
PROVIDERS: Emergency Provider Emergency Medicine; PCP Family Medicine; Visit Provider Emergency Medicine
DX: R10.13 Epigastric pain (principal); K31.84 Gastroparesis; K22.70 Barrett's esophagus without dysplasia
CPT/HCPCS: 36591; 80053; 81001; 83690; 84703; 85025; 99284; A4216

== ENCOUNTER 2022-08-18 10:16 | Emergency (ER) | payer OTHER, SELFPAY ==
[2022-08-18 10:16] VITALS: BP 113/70; PULSE 65; RESP 18; TEMP 36.4; O2SAT 100; BMI 24.5
[2022-08-18 10:42] LABS: Bacteria 0 SEEN /hpf (None Seen); Mucous, Urine 0 SEEN /hpf (<or=2+); White Blood Cells 0 SEEN /hpf (0-5)
[2022-08-18 10:45] LABS: Color, Urine Yellow (Yellow); Glucose, Dipstick Normal (Normal); Ketone-Dipstick Negative (Negative); Leukocyte Esterase-Dipstick 500 /ul (Negative); Nitrite-Dipstick Negative (Negative); Occult Blood-Urine 150 /ul (Negative); Protein-Dipstick Negative (Negative); Urine Bilirubin Dipstick Negative (Negative); Urine Clarity Turbid (Clear); Urine Urobilinogen Normal (Normal)
[2022-08-18 10:50] LABS: Amorphous Sediment 3+
[2022-08-18 10:51] LABS: Red Blood Cells-Urine 0-5 SEEN /hpf (0-5); Squamous Epithelial Cells - UA 0-5 SEEN /hpf (5-10)
--- NOTE | 2022-08-18 10:59 | EDS_ITS ---
HPI History of Present Illness Chief Complaint: Flank Pain Informant: patient Onset/Context/Timing Onset: Days (3) Context: Gradual Onset Timing: Continuous Quality: Aching Location: Bilateral flanks, right worse than left Worsened by: Nothing Relieved by: Heating pad Narrative Narrative: Patient presents with bilateral flank pain and nausea that has been getting worse over the last 3 days. Patient states it has been constant. Patient describes her pain as aching. Patient states pain is worse on the right flank but is also on the left flank. Patient states it got better with a heating pad. Patient states nothing makes it worse. Patient admits to some hematuria. Patient admits to some nausea but denies any vomiting. Patient denies any dysuria or frequency. Patient denies any fevers or chills. [facility] Medical History Alcohol use Anxiety Blackout Bradycardia Cardiology follow-up encounter Choledocholithiasis Cholelithiasis DUB (dysfunctional uterine bleeding) Easy bruising Hemiplegic migraine History of echocardiogram History of Holter monitoring History of kidney stones Insomnia Migraines Mycobacterial pneumonia Non-smoker Syncope Home Medications cholecalciferol (vitamin D3) 25 mcg (1,000 unit) tablet 1,000 units PO DAILY supplement 12/25/18 [History Last Taken 02/20/22] folic acid 1 mg tablet 2 mg PO DAILY supplement 12/25/18 [History Last Taken 02/20/22] tizanidine 4 mg capsule 4 mg PO DAILY PRN PRN Migraine Symptoms 12/25/18 [History Last Taken 02/20/22] magnesium oxide 500 mg capsule 500 mg PO BID supplement 11/11/19 [History Last Taken 02/20/22] biotin 10,000 mcg capsule 10,000 mcg PO DAILY 09/15/20 [History Last Taken 02/20/22] aspirin 81 mg tablet,delayed release 81 mg PO DAILY 02/13/22 [History Last Taken 02/20/22] eptinezumab-jjmr 100 mg/mL intravenous solution (Vyepti) 100 mg .Route [id number] 02/13/22 [History Last Taken 02/20/22] levonorgestrel 20 mcg/24 hours (8 yrs) 52 mg intrauterine device (Mirena) 1 device intrauterine ONCE 02/13/22 [History Last Taken 02/20/22] mecobalamin (vitamin B12) 1,000 mcg disintegrating tablet,sublingual 1,000 mcg sublingual DAILY 02/13/22 [History Last Taken 02/20/22] oxycodone-acetaminophen 10 mg-325 mg tablet 1 tab PO BID PRN Pain 02/13/22 [History Last Taken 02/20/22] ubrogepant 100 mg tablet 100 mg PO PRN PRN Migraine Headache 02/13/22 [History Last Taken 02/20/22] omega-3 fatty acids-vitamin E 1,000 mg capsule 1,000 cap PO DAILY 02/18/22 [History Last Taken 02/20/22] promethazine 25 mg tablet 25 mg PO PRN PRN NAUSES 02/18/22 [History Last Taken 02/20/22] clonazepam 2 mg tablet 2 mg PO DAILY 02/20/22 [History Last Taken 02/20/22] linaclotide 72 mcg capsule (Linzess) 72 mcg PO DAILY #30 caps 05/29/22 [Rx Last Taken Unknown] topiramate 200 mg tablet 50 mg PO QHS migraine 05/29/22 [History Last Taken Unknown] trazodone 50 mg tablet 50 mg PO QHS 05/29/22 [History Last Taken Unknown] yihnsh-qetvjdah-teqnqde 40,000-126,000-168,000 unit capsule, delay rel (Zenpep) 3 cap PO TID #320 caps 05/30/22 [Rx Last Taken Unknown] clonazepam 1 mg tablet 1 mg PO QAM PRN hiccups #30 tabs 06/14/22 [Rx Last Taken Unknown] benzonatate 200 mg capsule 200 mg PO BID-TID PRN cough #30 caps 06/23/22 [Rx Last Taken Unknown] prednisone 10 mg tablet 10 mg PO DAILY #8 tabs 06/23/22 [Rx Last Taken Unknown] pantoprazole 40 mg tablet,delayed release (Protonix) 40 mg PO DAILY #30 tabs 08/05/22 [Rx Last Taken Unknown] naproxen 500 mg tablet 500 mg PO BID PRN #20 tabs 08/18/22 [Rx Last Taken Unknown] Allergy/AdvReac Type Severity Reaction Status Date / Time erythromycin base AdvReac Nausea Verified 08/18/22 10:18 [Erythromycin Base] hydrocodone bitartrate AdvReac Other Verified 08/18/22 10:18 [From Vicodin] Family History Father MVP (mitral valve prolapse) Surgical History H/O unilateral oophorectomy History of bilateral salpingectomy History of cholecystectomy History of lithotripsy Social History Smoking Status: Never smoker alcohol intake: never ROS ROS ED Constitutional Constitutional ED: Denies chills or fever(s) Eyes Eyes: Denies blurry vision or change in vision ENT ENT ED: Denies rhinorrhea or sore throat Cardiovascular Cardiovascular: Denies chest pain or palpitations Respiratory/Chest Respiratory/Chest: Denies cough or dyspnea Gastrointestinal Gastrointestinal: Reports nausea; Denies vomiting Genitourinary Genitourinary ED: Reports hematuria; Denies dysuria or urinary frequency Musculoskeletal Musculoskeletal: Reports back pain; Denies neck pain Integumentary Denies abscess or rash Neurologic Neurologic: Reports headache(s); Denies weakness Allergic/Immunologic Allergic/Immunologic ED: Denies mouth swelling or urticaria EXAM Physical Exam Const Vital Signs: 08/18/22 10:16 Temperature 97.5 F L Temperature Source Temporal Pulse Rate 65 Respiratory Rate 18 Blood Pressure 113/70 Blood Pressure Mean 84 Pulse Ox 100 Oxygen Delivery Method Room Air Positive well nourished and well developed General Appearance ED: well developed HEENT Reports moist mucous membranes Neck supple and no JVD Resp normal respiratory effort and clear to auscultation bilaterally Cardio regular rate, regular rhythm and no murmurs GI normal to inspection, nondistended, normoactive bowel sounds and non-tender Palpation: soft Back/Spine General Back: CVA tenderness bilateral Extremity normal to inspection General Extremety ED: Negative for edema or tenderness General Extremity: Negative for edema Neuro oriented x3, CN's II-XII intact bilaterally and no sensory deficits noted Sensorium / Orientation: alert Motor Exam: strength 5/5 throughout Psych mental status grossly normal Skin no rashes or lesions noted MDM MDM MDM Narrative Medical decision making narrative: Patient was given IV fluids, Toradol, and Zofran. CBC was within normal limits. Basic metabolic profile shows a BUN of 28 and creatinine 1.31. These are consistent with prior results. Urinalysis shows a leukocyte esterases of 500 with 0 white blood cells and 0 bacteria. There is 3+ amorphous sediment. There is occult blood of 150. There are 0-[address] scan of the abdomen and pelvis was obtained. There is a 3 mm nonobstructing calculus of the left kidney. This was interpreted by the radiologist and reviewed by myself. Michael herndon was advised of her findings. Patient was instructed to drink plenty of fluids. Patient was given a prescription for Naprosyn. Patient was instructed to follow-up with her primary care physician in 5 to 7 days. Patient understood and was agreeable with the plan. All questions were answered. Lab Data Attestation: I reviewed the patient's lab results. Labs: Laboratory Results - last 24 hr 08/18/22 08/18/22 08/18/22 10:29 11:35 11:35 WBC 5.7 RBC 4.38 Hgb 12.7 Hct 38.9 MCV 88.8 MCH 29.0 MCHC 32.6 RDW Std Deviation 40.0 RDW Coeff of Brian 12.4 Plt Count 161 MPV 9.6 Immature Gran % (Auto) 0.200 Neut % (Auto) 62.3 Lymph % (Auto) 27.4 [place] % (Auto) 7.6 Eos % (Auto) 2.1 Baso % (Auto) 0.4 Absolute Neuts (auto) 3.5 Absolute Lymphs (auto) 1.55 Nucleated RBC % 0 Sodium 145 Potassium 4.1 Chloride 116 H Carbon Dioxide 25.0 Anion Gap 4 L BUN 20 H Creatinine 1.31 H Estim Creat Clear Calc 41.99 Est GFR (MDRD) Af Amer 56 L Est GFR (MDRD) Non-Af 46 L BUN/Creatinine Ratio 15.3 Glucose 106 Calcium 8.9 Urine Color Yellow Urine Clarity Turbid Urine pH 8.0 Ur Specific Lenore 1.010 Urine Protein Negative Urine Glucose (UA) Normal Urine Ketones Negative Urine Occult Blood 150 H Urine Nitrite Negative Urine Bilirubin Negative Urine Urobilinogen Normal Ur Leukocyte Esterase 500 H Urine RBC 0-5 SEEN Urine WBC 0 SEEN Ur Squamous Epith Cells 0-5 SEEN Amorphous Sediment 3+ Urine Bacteria 0 SEEN Urine Mucus 0 SEEN Radiography Diagnostic Testing: Clinical Impression(s) from Imaging Studies Abdomen/Pelvis CT 08/18/22 11:02 IMPRESSION: 1. 3 mm nonobstructive left renal stone. 2. Constipation. Electronically Signed: Chad Davis MD at 12:45 EDT , Discharge Plan Triage Chief Complaint: Flank Pain ED Provider: Tang Solis Dx/Rx/DC Orders Clinical Impression: Bilateral flank pain, Low back pain Instructions: ED Flank Pain, Uncertain Cause Prescriptions: New naproxen 500 mg tablet 500 mg PO BID PRN Qty: 20 0RF No Action Mirena 20 mcg/24 hours (7 yrs) 52 mg intrauterine device 1 device intrauterine ONCE Rx Instructions: as a single dose Ubrelvy 100 mg tablet 100 mg PO PRN PRN (Reason: Migraine Headache) Label Comments: TAKE ONE TABLET BY MOUTH AT THE ONSET OF MIGRAINE, MAY REPEAT DOSE AFTER 2 HOURS IF MIGRAINE PERSISTS. MAX 2 TABLETS PER DAY oxycodone-acetaminophen 10-325 mg tablet 1 tab PO BID PRN (Reason: Pain) Label Comments: TAKE 1 TABLET BY MOUTH UP TO TWICE DAILY AT LEAST 4 HOURS APART NEEDED FOR MIGRAINE aspirin 81 mg tablet,delayed release (DR/EC) 81 mg PO DAILY Vyepti 100 mg/mL solution 100 mg .Route [id number] Rx Instructions: every 3 monthsheadache 100 mg mecobalamin (vitamin B12) 1,000 mcg tablet,disintegrating 1,000 mcg sublingual DAILY Rx Instructions: place tablet under tongue and allow to dissolve for at least30 secs before swallowing clonazepam 2 mg tablet 2 mg PO DAILY topiramate 200 mg tablet 50 mg PO QHS trazodone 50 mg tablet 50 mg PO QHS Linzess 72 mcg capsule 72 mcg PO DAILY Qty: 30 3RF benzonatate 200 mg capsule 200 mg PO BID-TID MDD 600 mg PRN (Reason: cough) Qty: 30 0RF prednisone 10 mg tablet 10 mg PO DAILY Qty: 8 0RF Rx Instructions: Take 1 tab PO QD X 5 days then 1/2 tab PO QD X 5 days then stop folic acid 1 MG tablet 2 mg PO DAILY tizanidine 4 MG capsule 4 mg PO DAILY PRN PRN (Reason: Migraine Symptoms) cholecalciferol (vitamin D3) 1,000 UNIT tablet 1,000 units PO DAILY magnesium oxide 500 MG capsule 500 mg PO BID biotin 10,000 MCG capsule 10,000 mcg PO DAILY promethazine [Phenergan] 25 mg Tablet 25 mg PO PRN PRN (Reason: NAUSES) Fish Oil 1,000 mg Capsule 1,000 cap PO DAILY Zenpep 40,000-126,000- 168,000 unit capsule,delayed release(DR/EC) 3 cap PO TID Qty: 320 3RF Rx Instructions: Take three with meals and 1-2 with snacks clonazepam 1 mg tablet 1 mg PO QAM PRN (Reason: hiccups) Qty: 30 0RF Rx Instructions: Take one time a day as needed, do not take within 6 hours of another dose. pantoprazole [Protonix] 40 mg tablet,delayed release (DR/EC) 40 mg PO DAILY Qty: 30 2RF Primary Care Provider: Nikky Pillai Referrals: Nikky Pillai MD [Primary Care Provider] - 3-5 Days Disposition Disposition: Home, Self Care
--- NOTE | 2022-08-18 11:02 | CT_ITS ---
EXAM: CT ABDOMEN AND PELVIS WITHOUT INTRAVENOUS CONTRAST CLINICAL INDICATION: Flank pain TECHNIQUE: Helically acquired images were obtained of the abdomen and pelvis without intravenous contrast. This CT exam was performed using one or more of the following dose reduction techniques: automated exposure control, adjustment of the mA and/or kV according to patient size, and/or use of iterative reconstruction technique. This report was created using [employer] report generation technology. COMPARISON: CT Abdomen Pelvis dated 08/29/2020 FINDINGS: LOWER THORAX: Normal. Lung bases are clear. No cardiomegaly. No pericardial effusion. ABDOMEN: LIVER: Normal. Homogeneous. GALLBLADDER AND BILE DUCTS: Gallbladder is not identified. No intra- or extrahepatic biliary ductal dilation. PANCREAS: Normal. No focal cystic mass. SPLEEN: Normal. Normal size without focal cystic or solid mass. ADRENALS: Normal. No nodules. KIDNEYS AND URETERS: 3 mm stone noted within the lower pole of the left kidney no evidence of urinary tract obstruction. STOMACH AND BOWEL: Moderate stool burden within the large bowel. PELVIS: APPENDIX: Appendix is visualized and normal in appearance. BLADDER: Normal. REPRODUCTIVE: IUD noted within the endometrial cavity. ABDOMEN and PELVIS: INTRAPERITONEAL SPACE: Normal. No ascites or other fluid collection. No free air. BONES/JOINTS: Normal. No suspicious lytic or blastic abnormality. SOFT TISSUES: Multiple bilateral subcutaneous injection granulomata noted within the buttocks. No discrete abdominal or pelvic wall hernia. VASCULATURE: Normal. Abdominal aorta is non-dilated. LYMPH NODES: Normal. No enlarged lymph nodes. CT/Abdomen/Pelvis without Cont IMPRESSION: 1. 3 mm nonobstructive left renal stone. 2. Constipation. Electronically Signed: Chad Davis MD at 12:45 EDT ,
[2022-08-18 11:43] LABS: Absolute Lymphocyte Count 1.55 X10^3/uL (0.83-4.51); Absolute Neutrophil Count 3.5 X10^3/uL (2.0-7.7); Basophil# 0.02 X10^3/uL; Basophil% 0.4 % (0-1); Eosinophil# 0.12 X10^3/uL; Eosinophils% 2.1 % (0-5); Hematocrit 38.9 % (37-47); Hemoglobin 12.7 g/dL (12.0-15.0); Lymphocyte # 1.55 X10^3/ul (0.83-4.51); Lymphocyte % 27.4 % (19-41); Mean Corp Hgb Conc 32.6 g/dL (32-36); Mean Corpuscular Volume 88.8 fL (81-99); Mean Platelet Vol. 9.6 fl (6.2-12.0); Monocyte# 0.43 X10^3/uL; Monocyte% 7.6 % (0-10); NRBC Flagged by Analyzer 0 % (0-5); Neutrophil # 3.53 X10^3/uL (2.7-7.7); Neutrophil % 62.3 % (47-70); Platelet Count 161 K/mm3 (150-450); RBC Distribution Width CV 12.4 % (11.6-14.6); Red Blood Count 4.38 M/mm3 (4.2-5.4); White Blood Count 5.7 K/mm3 (4.4-11.0)
[2022-08-18] MEDS: Ketorolac 30 MG/ML Syringe IV (11:43)
[2022-08-18] MEDS: Ondansetron 4 MG/2 ML Vial IV (11:43)
[2022-08-18] MEDS: 0.9% Normal Saline 1,000 ML 1000 ML IV (11:43)
[2022-08-18 11:55] LABS: Anion Gap 4 (5-15); BUN 20 mg/dL (7-18); BUN/Creat Ratio 15.3 RATIO (10-20); Calcium,Total 8.9 mg/dL (8.5-10.1); Chloride 116 mmol/L (98-107); Creatinine, Serum 1.31 mg/dL (0.55-1.02); EST Glomerular Filtration Rate 46 mL/min (>60); Est Glom Filt Rate - Afr Amer 56 mL/min (>60); Estimated Creatinine Clearance 41.99 ml/min; Glucose 106 mg/dL (74-106); Potassium 4.1 mmol/L (3.5-5.1); Sodium Level 145 mmol/L (136-145)
[2022-08-18 13:00] VITALS: BP 120/68; PULSE 70; RESP 16; O2SAT 99
== END 2022-08-18 14:49 | disposition home or self-care (01) ==
PROVIDERS: Emergency Provider Emergency Medicine; PCP Family Medicine; Visit Provider Emergency Medicine
DX: R10.9 Unspecified abdominal pain (principal); M54.50 Low back pain, unspecified
CPT/HCPCS: 36591; 74176; 80048; 81001; 85025; 87086; 87088; 96361; 96374; 96375; 99284; J7030; A4216; J2405

== ENCOUNTER 2022-12-12 16:06 | Emergency (ER) | payer OTHER, SELFPAY ==
[2022-12-12 16:07] VITALS: BP 126/73; PULSE 84; RESP 16; TEMP 36.4; O2SAT 98; BMI 22.4
--- NOTE | 2022-12-12 16:22 | CT_ITS ---
STUDY: CT ABDOMEN AND PELVIS WITH CONTRAST REASON FOR EXAM: Female, 47 years old. Abdominal pain -- RADIATION DOSAGE (If Supplied By Facility): CTDIvol = ( 8.12 ) mGy, DLP = ( 447.57 ) mGycm TECHNIQUE: Transaxial images were obtained from the dome of the diaphragm to the symphysis pubis with oral contrast. IV 75mL [id number]-300 was administered. Sagittal and coronal images were reconstructed. Individualized dose optimization techniques were used for this CT. COMPARISON: August 18, 2022 FINDINGS: The visualized lung bases are unremarkable. The visualized portions of the heart are within normal limits. Normal liver. There is non-visualization of the gallbladder, which may be secondary to either contraction or a prior cholecystectomy. Normal spleen. Normal pancreas. Normal bilateral adrenal glands. There is extrarenal pelvis of the right kidney. There is 0.3 cm to the lower pole of the left kidney. Normal visualized stomach. Normal small intestine. There is moderately abundant stool in the left colon. There is fluid distention of the right colon. The appendix is visualized and appears normal. Normal abdominal aorta. Normal inferior vena cava. Normal retroperitoneum. Normal urinary bladder. There is IUD in the uterus. There is no free fluid in the abdomen or pelvis. Normal abdominal wall. Normal osseous structures. CT/Abdomen/Pelvis WITH Contrast IMPRESSION: Fluid and stool distention of the colon. Left renal stone. No hydronephrosis. Electronically Signed: Sim Grossman MD at 18:59 EST ,
--- NOTE | 2022-12-12 16:23 | EDS_ITS ---
HPI HPI - GI History of Present Illness Chief Complaint: Abd Pain Detail of Chief Complaint: Abdominal pain Informant: patient Narrative Narrative: Patient presents with abdominal pain that she has had for the last 3 days. Patient states that she thinks her gastroparesis is acting up. Patient states that whenever she tries to eat cheese vomiting and having severe epigastric pain. Patient has not had a bowel movement in the last 4 to 5 days. Patient denies urinary symptoms. She denies fever. Patient has pain even without eating and currently rates her pain an 8 out of 10. 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 Patient states she is been taking her pantoprazole as well as Linzess and' famotidine without any symptom relief. [facility] Medical History Alcohol use Anxiety Blackout Bradycardia Cardiology follow-up encounter Choledocholithiasis Cholelithiasis DUB (dysfunctional uterine bleeding) Easy bruising Hemiplegic migraine History of echocardiogram History of Holter monitoring History of kidney stones Insomnia Migraines Mycobacterial pneumonia Non-smoker Syncope Home Medications cholecalciferol (vitamin D3) 25 mcg (1,000 unit) tablet 1,000 units PO DAILY supplement 12/25/18 [History Last Taken 02/20/22] folic acid 1 mg tablet 2 mg PO DAILY supplement 12/25/18 [History Last Taken 02/20/22] tizanidine 4 mg capsule 4 mg PO DAILY PRN PRN Migraine Symptoms 12/25/18 [History Last Taken 02/20/22] magnesium oxide 500 mg capsule 500 mg PO BID supplement 11/11/19 [History Last Taken 02/20/22] biotin 10,000 mcg capsule 10,000 mcg PO DAILY 09/15/20 [History Last Taken 02/20/22] aspirin 81 mg tablet,delayed release 81 mg PO DAILY 02/13/22 [History Last Taken 02/20/22] eptinezumab-jjmr 100 mg/mL intravenous solution (Vyepti) 100 mg .Route [id number] 02/13/22 [History Last Taken 02/20/22] levonorgestrel 21 mcg/24 hours (8 yrs) 52 mg intrauterine device (Mirena) 1 device intrauterine ONCE 02/13/22 [History Last Taken 02/20/22] mecobalamin (vitamin B12) 1,000 mcg disintegrating tablet,sublingual 1,000 mcg sublingual DAILY 02/13/22 [History Last Taken 02/20/22] oxycodone-acetaminophen 10 mg-325 mg tablet 1 tab PO BID PRN Pain 02/13/22 [History Last Taken 02/20/22] ubrogepant 100 mg tablet 100 mg PO PRN PRN Migraine Headache 02/13/22 [History Last Taken 02/20/22] omega-3 fatty acids-vitamin E 1,000 mg capsule 1,000 cap PO DAILY 02/18/22 [History Last Taken 02/20/22] promethazine 25 mg tablet 25 mg PO PRN PRN NAUSES 02/18/22 [History Last Taken 02/20/22] clonazepam 2 mg tablet 2 mg PO DAILY 02/20/22 [History Last Taken 02/20/22] topiramate 200 mg tablet 50 mg PO QHS migraine 05/29/22 [History Last Taken Unknown] trazodone 50 mg tablet 50 mg PO QHS 05/29/22 [History Last Taken Unknown] benzonatate 200 mg capsule 200 mg PO BID-TID PRN cough #30 caps 06/23/22 [Rx Last Taken Unknown] prednisone 10 mg tablet 10 mg PO DAILY #8 tabs 06/23/22 [Rx Last Taken Unknown] naproxen 500 mg tablet 500 mg PO BID PRN #20 tabs 08/18/22 [Rx Last Taken Unknown] clonazepam 1 mg tablet 1 mg PO QAM PRN hiccups #30 tabs 09/30/22 [Rx Last Taken Unknown] famotidine 20 mg tablet 20 mg PO QHS #30 tabs 09/30/22 [Rx Last Taken Unknown] linaclotide 72 mcg capsule (Linzess) 72 mcg PO DAILY #30 caps 09/30/22 [Rx Last Taken Unknown] lgvbys-izbnwofa-nltesgm 40,000-126,000-168,000 unit capsule, delay rel (Zenpep) 3 cap PO TID #320 caps 10/07/22 [Rx Last Taken Unknown] pantoprazole 40 mg tablet,delayed release (Protonix) 40 mg PO DAILY #30 tabs 11/15/22 [Rx Last Taken Unknown] promethazine 25 mg rectal suppository 25 mg TN Q6H PRN nausea and vomiting #12 ea 12/12/22 [Rx Last Taken Unknown] Allergy/AdvReac Type Severity Reaction Status Date / Time erythromycin base AdvReac Nausea Verified 12/12/22 16:19 [Erythromycin Base] hydrocodone bitartrate AdvReac Other Verified 12/12/22 16:19 [From Vicodin] Family History Father MVP (mitral valve prolapse) Surgical History H/O unilateral oophorectomy History of bilateral salpingectomy History of cholecystectomy History of lithotripsy Social History Smoking Status: Never smoker alcohol intake: never ROS ROS ED Review of Systems ROS Unobtainable: other Constitutional Constitutional ED: Reports lethargy; Denies chills, fever(s), sweats or weight loss Eyes Eyes: Denies blurry vision, change in vision or diplopia ENT ENT ED: Denies rhinorrhea or sore throat Cardiovascular Cardiovascular: Denies chest pain, orthopnea or racing heartbeat Respiratory/Chest Respiratory/Chest: Denies cough, dyspnea, dyspnea on exertion, orthopnea or sputum Gastrointestinal Gastrointestinal: Reports abdominal pain, nausea and vomiting; Denies diarrhea Genitourinary Genitourinary ED: Denies dysuria, hematuria or urinary frequency Musculoskeletal Musculoskeletal: Denies arthralgias, back pain, myalgias or neck pain Integumentary Denies abscess, Abrasions or rash Neurologic Neurologic: Denies headache(s) or weakness Psychiatric Psychiatric: Denies anxiety, depression or suicidal thoughts Endocrine Endocrinology: Denies polydipsia, polyphagia or polyuria Hematologic/Lymphatic Hematologic/Lymphatic: Denies easy bleeding, easy bruising or lymphadenopathy Allergic/Immunologic Allergic/Immunologic ED: Denies mouth swelling, tongue swelling or urticaria EXAM Physical Exam Const Vital Signs: 12/12/22 16:07 12/12/22 18:49 Temperature 97.6 F L Temperature Source Temporal Pulse Rate 84 59 L Respiratory Rate 16 18 Blood Pressure 126/73 H 124/71 H Blood Pressure Mean 90 88 Pulse Ox 98 100 Oxygen Delivery Method Room Air Room Air Positive well nourished and well developed General Appearance ED: well developed and NAD HEENT Reports TM's clear and moist mucous membranes normocephalic and atraumatic; Negative for trauma or tenderness Tympanic Membrane ED: Yes TM's clear Eyes PERRL and EOMs intact bilaterally General Eye ED: Negative for pale conjunctiva or scleral icterus Neck no lymphadenopathy, supple and no JVD General: Negative for tenderness Chest Wall inspection of chest normal and palpation of chest normal Chest: Negative for tenderness Resp normal respiratory effort and clear to auscultation bilaterally Effort and Inspection: Negative for respiratory distress or pain with movement Auscultation: Negative for rhonchi, wheezes or diminished lung sounds Cardio regular rate, regular rhythm, S1 normal heart sound, S2 normal heart sound and no murmurs Peripheral Pulses: pulses 2+ throughout GI normal to inspection, nondistended, normoactive bowel sounds, soft to palpation, non-distended and no masses GI Narrative: Tenderness to palpation over the epigastric region with guarding. There is no rebound, rigidity, or. Signs. No masses palpated. Back/Spine no CVA tenderness and no thoracic nor lumbar tenderness Extremity normal to inspection General Extremety ED: Negative for edema General Extremity: Negative for edema Neuro oriented x3, CN's II-XII intact bilaterally, no sensory deficits noted and gait normal Sensorium / Orientation: awake, alert, oriented to person, oriented to place and oriented to time Motor Exam: strength 5/5 throughout and strength abnormal Psych mental status grossly normal Skin no rashes or lesions noted and no wounds MDM MDM MDM Narrative Medical decision making narrative: Established on arrival. Patient was medicated with morphine and Zofran. CBC with differential showed a normal white count of 4.7 and hemoglobin of 13.7. Chemistries unremarkable. Lactate was normal 0.9. LFTs were normal. Lipase was normal. Urinalysis was unremarkable. Patient had a CT scan of the abdomen pelvis with IV and p.o. contrast to rule out bowel obstruction and this was negative for obstruction. She had some moderate amount of stool throughout the colon as well as fluid throughout the colon. Contrast did move into the small bowel. Patient tells me she is lost about 8 pounds in the last week or so as she is not really been able to eat. 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 Cuevas unsuccessfully as he is not on-call today. Patient I feel can be safely discharged to home with a prescription for Phenergan suppositories and recommend that she follow-up with Dr. Cuevas at the earliest possible time. Patient advised to return if fever, persistent vomiting, or condition should worsen anyway. Lab Data Attestation: I reviewed the patient's lab results. Labs: Laboratory Results - last 24 hr 12/12/22 12/12/22 12/12/22 16:38 16:38 16:38 WBC 4.7 RBC 4.79 Hgb 13.7 Hct 42.5 MCV 88.7 MCH 28.6 MCHC 32.2 RDW Std Deviation 40.0 RDW Coeff of Brian 12.4 Plt Count 204 MPV 10.0 Immature Gran % (Auto) 0.200 Neut % (Auto) 56.5 Lymph % (Auto) 32.8 [place] % (Auto) 7.5 Eos % (Auto) 2.1 Baso % (Auto) 0.9 Absolute Neuts (auto) 2.7 Absolute Lymphs (auto) 1.54 Nucleated RBC % 0 Sodium 139 Potassium 3.5 Chloride 106 Carbon Dioxide 24.0 Anion Gap 9 BUN 25 H Creatinine 1.58 H Estim Creat Clear Calc 34.81 Est GFR (MDRD) Af Amer 45 L Est GFR (MDRD) Non-Af 37 L BUN/Creatinine Ratio 15.8 Glucose 83 Lactic Acid 0.9 Calcium 10.0 Total Bilirubin 0.60 AST 17 ALT 39 Alkaline Phosphatase 114 Total Protein 7.4 Albumin 4.4 Globulin 3.0 Albumin/Globulin Ratio 1.5 Lipase 174 Serum , Qual Urine Color Urine Clarity Urine pH Ur Specific [place] Urine Protein Urine Glucose (UA) Urine Ketones Urine Occult Blood Urine Nitrite Urine Bilirubin Urine Urobilinogen Ur Leukocyte Esterase Urine RBC Urine WBC Ur Squamous Epith Cells Ur Renal Epithelial Cell Urine Bacteria Urine Mucus 12/12/22 12/12/22 16:38 18:43 WBC RBC Hgb Hct MCV MCH MCHC RDW Std Deviation RDW Coeff of Brian Plt Count MPV Immature Gran % (Auto) Neut % (Auto) Lymph % (Auto) [place] % (Auto) Eos % (Auto) Baso % (Auto) Absolute Neuts (auto) Absolute Lymphs (auto) Nucleated RBC % Sodium Potassium Chloride Carbon Dioxide Anion Gap BUN Creatinine Estim Creat Clear Calc Est GFR (MDRD) Af Amer Est GFR (MDRD) Non-Af BUN/Creatinine Ratio Glucose Lactic Acid Calcium Total Bilirubin AST ALT Alkaline Phosphatase Total Protein Albumin Globulin Albumin/Globulin Ratio Lipase Serum , Qual NEGATIVE Urine Color Yellow Urine Clarity Clear Urine pH 6.5 Ur Specific [place] 1.010 Urine Protein Negative Urine Glucose (UA) Normal Urine Ketones Negative Urine Occult Blood Negative Urine Nitrite Negative Urine Bilirubin Negative Urine Urobilinogen Normal Ur Leukocyte Esterase 500 H Urine RBC 0 SEEN Urine WBC 0-5 SEEN Ur Squamous Epith Cells 0-5 SEEN Ur Renal Epithelial Cell 0-5 SEEN Urine Bacteria 0 SEEN Urine Mucus 0 SEEN Radiography Diagnostic Testing: Clinical Impression(s) from Imaging Studies Abdomen/Pelvis CT 12/12/22 16:22 IMPRESSION: Fluid and stool distention of the colon. Left renal stone. No hydronephrosis. Electronically Signed: Sim Grossman MD at 18:59 EST , Discharge Plan Triage Chief Complaint: Abd Pain ED Provider: Vibha Almonte Dx/Rx/DC Orders Clinical Impression: Abdominal pain, Gastroparesis Instructions: Gastroparesis, ED Abdominal Pain Unkn Cause Fem Prescriptions: New promethazine 25 mg suppository 25 mg TN Q6H PRN (Reason: nausea and vomiting) Qty: 12 0RF No Action Mirena 20 mcg/24 hours (7 yrs) 52 mg intrauterine device 1 device intrauterine ONCE Rx Instructions: as a single dose Ubrelvy 100 mg tablet 100 mg PO PRN PRN (Reason: Migraine Headache) Label Comments: TAKE ONE TABLET BY MOUTH AT THE ONSET OF MIGRAINE, MAY REPEAT DOSE AFTER 2 HOURS IF MIGRAINE PERSISTS. MAX 2 TABLETS PER DAY oxycodone-acetaminophen 10-325 mg tablet 1 tab PO BID PRN (Reason: Pain) Label Comments: TAKE 1 TABLET BY MOUTH UP TO TWICE DAILY AT LEAST 4 HOURS APART NEEDED FOR MIGRAINE aspirin 81 mg tablet,delayed release (DR/EC) 81 mg PO DAILY Vyepti 100 mg/mL solution 100 mg .Route [id number] Rx Instructions: every 3 monthsheadache 100 mg mecobalamin (vitamin B12) 1,000 mcg tablet,disintegrating 1,000 mcg sublingual DAILY Rx Instructions: place tablet under tongue and allow to dissolve for at least30 secs before swallowing clonazepam 2 mg tablet 2 mg PO DAILY topiramate 200 mg tablet 50 mg PO QHS trazodone 50 mg tablet 50 mg PO QHS benzonatate 200 mg capsule 200 mg PO BID-TID MDD 600 mg PRN (Reason: cough) Qty: 30 0RF prednisone 10 mg tablet 10 mg PO DAILY Qty: 8 0RF Rx Instructions: Take 1 tab PO QD X 5 days then 1/2 tab PO QD X 5 days then stop pantoprazole [Protonix] 40 mg tablet,delayed release (DR/EC) 40 mg PO DAILY Qty: 30 2RF folic acid 1 MG tablet 2 mg PO DAILY tizanidine 4 MG capsule 4 mg PO DAILY PRN PRN (Reason: Migraine Symptoms) cholecalciferol (vitamin D3) 1,000 UNIT tablet 1,000 units PO DAILY magnesium oxide 500 MG capsule 500 mg PO BID biotin 10,000 MCG capsule 10,000 mcg PO DAILY promethazine [Phenergan] 25 mg Tablet 25 mg PO PRN PRN (Reason: NAUSES) Fish Oil 1,000 mg Capsule 1,000 cap PO DAILY naproxen 500 mg tablet 500 mg PO BID PRN Qty: 20 0RF Linzess 72 mcg capsule 72 mcg PO DAILY Qty: 30 3RF famotidine 20 mg tablet 20 mg PO QHS Qty: 30 11RF clonazepam 1 mg tablet 1 mg PO QAM PRN (Reason: hiccups) Qty: 30 0RF Rx Instructions: Take one time a day as needed, do not take within 6 hours of another dose. Zenpep 40,000-126,000- 168,000 unit capsule,delayed release(DR/EC) 3 cap PO TID Qty: 320 11RF Rx Instructions: Take three with meals and 1-2 with snacks Primary Care Provider: Nikky Pillai Referrals: Nikky Pillai MD [Primary Care Provider] - Jamie Cuevas DO [Med Staff - Active Staff] - 3-5 Days Disposition Disposition: Home, Self Care
[2022-12-12] MEDS: Ondansetron 4 MG/2 ML Vial IV ×2 (16:32→19:01)
[2022-12-12] MEDS: Morphine 4 MG/ML Syringe IV ×2 (16:32→19:03)
[2022-12-12] MEDS: 0.9% Normal Saline 1,000 ML 125 ML IV (16:36)
[2022-12-12 17:16] LABS: Internal QC Validated? YES +Cl - CLEAR BKGD; Pregnancy, Serum, hCG Quali. NEGATIVE Negative
[2022-12-12 17:23] LABS: Lactic Acid 0.9 mmol/L (0.4-1.9)
[2022-12-12 17:26] LABS: Absolute Lymphocyte Count 1.54 X10^3/uL (0.83-4.51); Absolute Neutrophil Count 2.7 X10^3/uL (2.0-7.7); Basophil# 0.04 X10^3/uL; Basophil% 0.9 % (0-1); Eosinophils% 2.1 % (0-5); Hematocrit 42.5 % (37-47); Hemoglobin 13.7 g/dL (12.0-15.0); Lymphocyte # 1.54 X10^3/ul (0.83-4.51); Lymphocyte % 32.8 % (19-41); Mean Corp Hgb Conc 32.2 g/dL (32-36); Mean Corpuscular Hgb 28.6 pg (27.0-32.0); Mean Corpuscular Volume 88.7 fL (81-99); Monocyte# 0.35 X10^3/uL; Monocyte% 7.5 % (0-10); NRBC Flagged by Analyzer 0 % (0-5); Neutrophil # 2.65 X10^3/uL (2.7-7.7); Neutrophil % 56.5 % (47-70); Platelet Count 204 K/mm3 (150-450); RBC Distribution Width CV 12.4 % (11.6-14.6); Red Blood Count 4.79 M/mm3 (4.2-5.4); White Blood Count 4.7 K/mm3 (4.4-11.0)
[2022-12-12 17:33] LABS: ALB/GLOB Ratio 1.5 RATIO (0.9-2.4); AST(SGOT) 17 U/L (15-37); Alanine Aminotransfer ALT/SGPT 39 U/L (13-56); Albumin, Serum 4.4 g/dL (3.2-5.0); Alkaline Phosphatase 114 U/L (45-117); Anion Gap 9 (5-15); BUN 25 mg/dL (7-18); BUN/Creat Ratio 15.8 RATIO (10-20); Chloride 106 mmol/L (98-107); Creatinine, Serum 1.58 mg/dL (0.55-1.02); EST Glomerular Filtration Rate 37 mL/min (>60); Est Glom Filt Rate - Afr Amer 45 mL/min (>60); Estimated Creatinine Clearance 34.81 ml/min; Glucose 83 mg/dL (74-106); Lipase 174 U/L (73-393); Potassium 3.5 mmol/L (3.5-5.1); Protein, Total 7.4 g/dL (6.4-8.2); Sodium Level 139 mmol/L (136-145)
[2022-12-12 18:48] LABS: Bacteria 0 SEEN /hpf (None Seen); Mucous, Urine 0 SEEN /hpf (<or=2+); Red Blood Cells-Urine 0 SEEN /hpf (0-5)
[2022-12-12 18:49] VITALS: BP 124/71; PULSE 59; RESP 18; O2SAT 100
[2022-12-12 18:49] LABS: Color, Urine Yellow (Yellow); Glucose, Dipstick Normal (Normal); Ketone-Dipstick Negative (Negative); Leukocyte Esterase-Dipstick 500 /ul (Negative); Nitrite-Dipstick Negative (Negative); Occult Blood-Urine Negative /ul (Negative); Protein-Dipstick Negative (Negative); Urine Bilirubin Dipstick Negative (Negative); Urine Clarity Clear (Clear); Urine Urobilinogen Normal (Normal); Urine pH 6.5 (5.0 - 8.0)
[2022-12-12 18:54] LABS: Renal Epithelial Cells 0-5 SEEN /hpf (0-5); Squamous Epithelial Cells - UA 0-5 SEEN /hpf (5-10); White Blood Cells 0-5 SEEN /hpf (0-5)
[2022-12-12 19:40] VITALS: BP 132/82; PULSE 61; RESP 18; O2SAT 100
== END 2022-12-12 19:52 | disposition home or self-care (01) ==
PROVIDERS: Emergency Provider Emergency Medicine; PCP Family Medicine; Visit Provider Emergency Medicine
DX: R10.9 Unspecified abdominal pain (principal); K31.84 Gastroparesis
CPT/HCPCS: 36591; 74177; 80053; 81001; 83605; 83690; 84703; 85025; 96374; 96375; 96376; 99284; Q9967; A4216; J2405

== ENCOUNTER 2022-12-18 10:22 | Inpatient (IN) | payer OTHER, SELFPAY ==
[2022-12-18] VITALS (12 sets, daily range): BP systolic 94–142; BP diastolic 62–97; PULSE 64–89; RESP 14–16; TEMP 36.5–36.8; O2SAT 96–100; BMI 21.4; BMI 21.5
--- NOTE | 2022-12-18 11:15 | ED.VIS.GI ---
HPI HPI - GI History of Present Illness Chief Complaint: Abd Pain Informant: patient Narrative Narrative: Patient is a 47-year-old female with history of migraines and gastroparesis presenting for abdominal discomfort. Patient states that she has been more constipated and having abdominal discomfort for the past 2 weeks or so. She has a diffuse diffuse abdominal discomfort. States she generally been able to eat or drink anything for the past 8 days but she can take small sips. She has tried her Phenergan but cannot keep it down and is also tried a scopolamine catch but had to stop that because she developed blurred vision. On Friday she was instructed to use an enema with some help with her symptoms. On Friday (2 days ago) she was instructed to take partial MiraLAX prep and usually have liquid stool from there. She followed up with GI again in the office today and they ordered a KUB and told her she can either go to the ER or go home and wait for Dr. Cuevas to review the x-ray. She said to come to the ER because she is concerned about dehydration. She has had a prior cholecystectomy as well as tubal ligation and removal of one of her ovaries. She had a CT of her abdomen and pelvis on 12/12/2022. She denies any fever or chills. Denies any urinary symptoms. No other complaints at this time. States she cannot take Reglan because it makes her crawl out of her skin. [facility] Medical History Alcohol use Anxiety Blackout Bradycardia Cardiology follow-up encounter Choledocholithiasis Cholelithiasis DUB (dysfunctional uterine bleeding) Easy bruising Hemiplegic migraine History of echocardiogram History of Holter monitoring History of kidney stones Insomnia Migraines Mycobacterial pneumonia Non-smoker Syncope Home Medications cholecalciferol (vitamin D3) 25 mcg (1,000 unit) tablet 1,000 units PO DAILY supplement 12/25/18 [History Last Taken 02/20/22] folic acid 1 mg tablet 2 mg PO DAILY supplement 12/25/18 [History Last Taken 02/20/22] tizanidine 4 mg capsule 4 mg PO DAILY PRN PRN Migraine Symptoms 12/25/18 [History Last Taken 02/20/22] magnesium oxide 500 mg capsule 500 mg PO BID supplement 11/11/19 [History Last Taken 02/20/22] biotin 10,000 mcg capsule 10,000 mcg PO DAILY 09/15/20 [History Last Taken 02/20/22] aspirin 81 mg tablet,delayed release 81 mg PO DAILY 02/13/22 [History Last Taken 02/20/22] eptinezumab-jjmr 100 mg/mL intravenous solution (Vyepti) 100 mg .Route [id number] 02/13/22 [History Last Taken 02/20/22] levonorgestrel 21 mcg/24 hours (8 yrs) 52 mg intrauterine device (Mirena) 1 device intrauterine ONCE 02/13/22 [History Last Taken 02/20/22] mecobalamin (vitamin B12) 1,000 mcg disintegrating tablet,sublingual 1,000 mcg sublingual DAILY 02/13/22 [History Last Taken 02/20/22] oxycodone-acetaminophen 10 mg-325 mg tablet 1 tab PO BID PRN Pain 02/13/22 [History Last Taken 02/20/22] ubrogepant 100 mg tablet 100 mg PO PRN PRN Migraine Headache 02/13/22 [History Last Taken 02/20/22] omega-3 fatty acids-vitamin E 1,000 mg capsule 1,000 cap PO DAILY 02/18/22 [History Last Taken 02/20/22] promethazine 25 mg tablet 25 mg PO PRN PRN NAUSES 02/18/22 [History Last Taken 02/20/22] clonazepam 2 mg tablet 2 mg PO DAILY 02/20/22 [History Last Taken 02/20/22] topiramate 200 mg tablet 50 mg PO QHS migraine 05/29/22 [History Last Taken Unknown] trazodone 50 mg tablet 50 mg PO QHS 05/29/22 [History Last Taken Unknown] benzonatate 200 mg capsule 200 mg PO BID-TID PRN cough #30 caps 06/23/22 [Rx Last Taken Unknown] prednisone 10 mg tablet 10 mg PO DAILY #8 tabs 06/23/22 [Rx Last Taken Unknown] naproxen 500 mg tablet 500 mg PO BID PRN #20 tabs 08/18/22 [Rx Last Taken Unknown] clonazepam 1 mg tablet 1 mg PO QAM PRN hiccups #30 tabs 09/30/22 [Rx Last Taken Unknown] famotidine 20 mg tablet 20 mg PO QHS #30 tabs 09/30/22 [Rx Last Taken Unknown] linaclotide 72 mcg capsule (Linzess) 72 mcg PO DAILY #30 caps 09/30/22 [Rx Last Taken Unknown] lztypv-spbmgfjv-wwdsbqn 40,000-126,000-168,000 unit capsule, delay rel (Zenpep) 3 cap PO TID #320 caps 10/07/22 [Rx Last Taken Unknown] pantoprazole 40 mg tablet,delayed release (Protonix) 40 mg PO DAILY #30 tabs 11/15/22 [Rx Last Taken Unknown] promethazine 25 mg rectal suppository 25 mg SC Q6H PRN nausea and vomiting #12 ea 12/12/22 [Rx Last Taken Unknown] scopolamine base 1 mg over 3 days transdermal patch 1 patch transdermal Q3D PRN nausea and vomiting #10 ea 12/13/22 [Rx Last Taken Unknown] Allergy/AdvReac Type Severity Reaction Status Date / Time erythromycin base AdvReac Nausea Verified 12/12/22 16:19 [Erythromycin Base] hydrocodone bitartrate AdvReac Other Verified 12/12/22 16:19 [From Vicodin] Family History Father MVP (mitral valve prolapse) Surgical History H/O unilateral oophorectomy History of bilateral salpingectomy History of cholecystectomy History of lithotripsy Social History Smoking Status: Never smoker alcohol intake: never ROS ROS ED Constitutional Constitutional ED: Denies chills or fever(s) Cardiovascular Cardiovascular: Denies chest pain Respiratory/Chest Respiratory/Chest: Denies cough Gastrointestinal Gastrointestinal: Reports abdominal pain, diarrhea, nausea and vomiting; Denies constipation Genitourinary Genitourinary ED: Denies dysuria or hematuria Musculoskeletal Musculoskeletal: Denies arthralgias or myalgias Integumentary Denies rash Neurologic Neurologic: Denies weakness Psychiatric Psychiatric: Denies anxiety EXAM Physical Exam Const Vital Signs: 12/18/22 10:24 12/18/22 10:28 12/18/22 12:25 Temperature 98 F 97.7 F L 98.3 F Temperature Source Temporal Temporal Temporal Pulse Rate 89 79 64 Respiratory Rate 14 16 16 Blood Pressure 142/97 H 121/84 H 108/75 Blood Pressure Mean 112 96 86 Pulse Ox 100 99 100 Oxygen Delivery Method Room Air Room Air Room Air 12/18/22 12:27 12/18/22 13:39 12/18/22 15:07 Temperature 98 F 98 F Temperature Source Temporal Temporal Pulse Rate 64 66 66 Respiratory Rate 16 16 16 Blood Pressure 108/75 111/77 121/77 H Blood Pressure Mean 86 88 91 Pulse Ox 100 100 97 Oxygen Delivery Method Room Air Room Air Room Air 12/18/22 15:08 12/18/22 16:30 12/18/22 16:31 Temperature 98 F Temperature Source Temporal Pulse Rate 66 67 67 Respiratory Rate 16 16 16 Blood Pressure 121/77 H 94/62 94/62 Blood Pressure Mean 91 72 72 Pulse Ox 97 96 96 Oxygen Delivery Method Room Air Room Air Room Air Positive well nourished and well developed General Appearance ED: well developed and NAD; Negative for pallor HEENT Reports dry mucous membranes normocephalic and atraumatic Mouth ED: Yes dry mucous membranes Mouth: dry mucous membranes Eyes PERRL and EOMs intact bilaterally General Eye ED: Negative for scleral icterus Neck supple Resp normal respiratory effort and clear to auscultation bilaterally Cardio regular rate, regular rhythm and no murmurs GI non-distended Inspection: Negative for abdominal distention Auscultation: hypoactive bowel sounds Palpation: soft and tender epigastric Back/Spine no CVA tenderness Extremity full ROM Neuro moves all extremities Sensorium / Orientation: alert Motor Exam: Negative for general weakness Psych mental status grossly normal and thought process normal Skin no wounds General Skin Exam: Negative for jaundice or pallor MDM MDM MDM Narrative Medical decision making narrative: Patient is evaluated for decreased oral intake, nausea and epigastric abdominal pain in the setting of gastroparesis. She is had a prior cholecystectomy. She was seen in the ER 1 week ago and at that time was treated with fluids, Zofran and morphine. She states she felt better temporarily but then her pain came back and she is come back in. She is followed up with GI in the interim. I spoke with her GI doctor, Dr. Cuevas, states she has a very difficult gastroparesis that is hard to get under control with her symptoms. Patient does have an acute elevation of her ALT and alkaline phosphatase. Because of this right upper quadrant ultrasound was obtained to rule out choledocholithiasis. She does have a mildly dilated common bile duct however it does not appear grossly different than prior imaging on CTs. Discussed with Friday states patient might ultimately require an MRCP. Patient is given cocktail for cyclic vomiting syndrome and is able to keep down apple juice. Will obtain a blood glucose as she is mildly hyperglycemic with a glucose of 73 in the ER. She is resting on repeat evaluation. Patient expresses concern about possibly needing an NG tube at some point however right now she does not have any acute electrolyte abnormalities and still has a normal BMI. Patient states that when she went her cell this morning she was 114 pounds. After apple juice patient's glucose is 71. She does not feel any better after GI cocktail continues to have abdominal pain and nausea. I feel at this time patient likely will need admission for further symptom control, possible inpatient MRCP which was discussed with GI and further IV fluids with possible dextrose. Lab Data Labs: Laboratory Results - last 24 hr 12/18/22 12/18/22 12/18/22 11:31 11:31 16:56 WBC 4.9 RBC 4.85 Hgb 13.9 Hct 42.2 MCV 87.0 MCH 28.7 MCHC 32.9 RDW Std Deviation 38.8 RDW Coeff of Brian 12.1 Plt Count 175 MPV 9.7 Immature Gran % (Auto) 0.200 Neut % (Auto) 58.5 Lymph % (Auto) 31.9 Stark % (Auto) 7.4 Eos % (Auto) 1.4 Baso % (Auto) 0.6 Absolute Neuts (auto) 2.9 Absolute Lymphs (auto) 1.56 Nucleated RBC % 0 Sodium 140 Potassium 3.8 Chloride 108 H Carbon Dioxide 23.0 Anion Gap 9 BUN 22 H Creatinine 1.44 H Estim Creat Clear Calc 38.20 Est GFR (MDRD) Af Amer 50 L Est GFR (MDRD) Non-Af 41 L BUN/Creatinine Ratio 15.3 Glucose 73 L Calcium 10.0 Total Bilirubin 0.50 AST 28 ALT 141 H Alkaline Phosphatase 145 H Total Protein 7.2 Albumin 4.2 Globulin 3.0 Albumin/Globulin Ratio 1.4 Lipase 372 POC Glucose 71 L Radiography Diagnostic Testing: Clinical Impression(s) from Imaging Studies Abdomen Ultrasound 12/18/22 12:46 IMPRESSION: Status post cholecystectomy. Mildly dilated common bile duct measuring 9 mm. Electronically Signed: Chirag Mock MD at 13:54 EST , Discharge Plan Triage Chief Complaint: Abd Pain ED Provider: Carie King Dx/Rx/DC Orders Clinical Impression: Hypoglycemia, Gastroparesis, Abdominal pain Prescriptions: No Action Mirena 20 mcg/24 hours (7 yrs) 52 mg intrauterine device 1 device intrauterine ONCE Rx Instructions: as a single dose Ubrelvy 100 mg tablet 100 mg PO PRN PRN (Reason: Migraine Headache) Label Comments: TAKE ONE TABLET BY MOUTH AT THE ONSET OF MIGRAINE, MAY REPEAT DOSE AFTER 2 HOURS IF MIGRAINE PERSISTS. MAX 2 TABLETS PER DAY oxycodone-acetaminophen 10-325 mg tablet 1 tab PO BID PRN (Reason: Pain) Label Comments: TAKE 1 TABLET BY MOUTH UP TO TWICE DAILY AT LEAST 4 HOURS APART NEEDED FOR MIGRAINE aspirin 81 mg tablet,delayed release (DR/EC) 81 mg PO DAILY Vyepti 100 mg/mL solution 100 mg .Route [id number] Rx Instructions: every 3 monthsheadache 100 mg mecobalamin (vitamin B12) 1,000 mcg tablet,disintegrating 1,000 mcg sublingual DAILY Rx Instructions: place tablet under tongue and allow to dissolve for at least30 secs before swallowing clonazepam 2 mg tablet 2 mg PO DAILY topiramate 200 mg tablet 50 mg PO QHS trazodone 50 mg tablet 50 mg PO QHS benzonatate 200 mg capsule 200 mg PO BID-TID MDD 600 mg PRN (Reason: cough) Qty: 30 0RF prednisone 10 mg tablet 10 mg PO DAILY Qty: 8 0RF Rx Instructions: Take 1 tab PO QD X 5 days then 1/2 tab PO QD X 5 days then stop pantoprazole [Protonix] 40 mg tablet,delayed release (DR/EC) 40 mg PO DAILY Qty: 30 2RF folic acid 1 MG tablet 2 mg PO DAILY tizanidine 4 MG capsule 4 mg PO DAILY PRN PRN (Reason: Migraine Symptoms) cholecalciferol (vitamin D3) 1,000 UNIT tablet 1,000 units PO DAILY magnesium oxide 500 MG capsule 500 mg PO BID biotin 10,000 MCG capsule 10,000 mcg PO DAILY promethazine [Phenergan] 25 mg Tablet 25 mg PO PRN PRN (Reason: NAUSES) Fish Oil 1,000 mg Capsule 1,000 cap PO DAILY naproxen 500 mg tablet 500 mg PO BID PRN Qty: 20 0RF promethazine 25 mg suppository 25 mg SC Q6H PRN (Reason: nausea and vomiting) Qty: 12 0RF Linzess 72 mcg capsule 72 mcg PO DAILY Qty: 30 3RF famotidine 20 mg tablet 20 mg PO QHS Qty: 30 11RF clonazepam 1 mg tablet 1 mg PO QAM PRN (Reason: hiccups) Qty: 30 0RF Rx Instructions: Take one time a day as needed, do not take within 6 hours of another dose. Zenpep 40,000-126,000- 168,000 unit capsule,delayed release(DR/EC) 3 cap PO TID Qty: 320 11RF Rx Instructions: Take three with meals and 1-2 with snacks scopolamine base 1 mg over 3 days patch 3 day 1 patch transdermal Q3D PRN (Reason: nausea and vomiting) Qty: 10 0RF Primary Care Provider: Nikky Pillai Referrals: Nikky Pillai MD [Primary Care Provider] - Disposition Disposition: Acute Care Hospital [facility]
[2022-12-18 11:37] LABS: Hemoglobin 13.9 g/dL (12.0-15.0); Red Blood Count 4.85 M/mm3 (4.2-5.4); White Blood Count 4.9 K/mm3 (4.4-11.0)
[2022-12-18 11:38] LABS: Absolute Lymphocyte Count 1.56 X10^3/uL (0.83-4.51); Absolute Neutrophil Count 2.9 X10^3/uL (2.0-7.7); Basophil# 0.03 X10^3/uL; Basophil% 0.6 % (0-1); Eosinophil# 0.07 X10^3/uL; Eosinophils% 1.4 % (0-5); Hematocrit 42.2 % (37-47); Lymphocyte # 1.56 X10^3/ul (0.83-4.51); Lymphocyte % 31.9 % (19-41); Mean Corp Hgb Conc 32.9 g/dL (32-36); Mean Corpuscular Hgb 28.7 pg (27.0-32.0); Mean Platelet Vol. 9.7 fl (6.2-12.0); Monocyte# 0.36 X10^3/uL; Monocyte% 7.4 % (0-10); NRBC Flagged by Analyzer 0 % (0-5); Neutrophil # 2.86 X10^3/uL (2.7-7.7); Neutrophil % 58.5 % (47-70); Platelet Count 175 K/mm3 (150-450); RBC Distribution Width CV 12.1 % (11.6-14.6); RBC Distribution Width SD 38.8 fl (35.1-43.9)
[2022-12-18] MEDS: Ondansetron 4 MG/2 ML Vial IV ×2 (11:39→23:23)
[2022-12-18] MEDS: 0.9% Normal Saline 1,000 ML 1000 ML IV (11:40)
[2022-12-18 11:53] LABS: ALB/GLOB Ratio 1.4 RATIO (0.9-2.4); AST(SGOT) 28 U/L (15-37); Alanine Aminotransfer ALT/SGPT 141 U/L (13-56); Albumin, Serum 4.2 g/dL (3.2-5.0); Alkaline Phosphatase 145 U/L (45-117); Anion Gap 9 (5-15); BUN 22 mg/dL (7-18); BUN/Creat Ratio 15.3 RATIO (10-20); Chloride 108 mmol/L (98-107); Creatinine, Serum 1.44 mg/dL (0.55-1.02); EST Glomerular Filtration Rate 41 mL/min (>60); Est Glom Filt Rate - Afr Amer 50 mL/min (>60); Glucose 73 mg/dL (74-106); Lipase 372 U/L (73-393); Potassium 3.8 mmol/L (3.5-5.1); Protein, Total 7.2 g/dL (6.4-8.2); Sodium Level 140 mmol/L (136-145)
--- NOTE | 2022-12-18 12:46 | US_ITS ---
STUDY: ABDOMINAL ULTRASOUND - RIGHT UPPER QUADRANT REASON FOR VISIT: Female, 47 years old elevated AST, hx of cholecystectomy TECHNIQUE: Ultrasound evaluation of the right upper quadrant was performed with real-time and static hernandez-scale imaging. TECHNICAL QUALITY: Adequate. COMPARISON: Comparison is made with prior CT scan of abdomen and pelvis dated 12/12/2022. FINDINGS: Liver: The liver measures 13.2 cm. There is normal echogenicity of the liver. The bile ducts are within normal limits. There is hepatic color flow. The direction of portal flow is hepatopetal. There is no demonstrated mass lesion. Gallbladder: The patient is status post cholecystectomy. Common Bile Duct (C.B.D.): The common bile duct is mildly dilated and measures 9 mm. Pancreas: Normal size of the head, body and tail of the pancreas. There is normal echogenicity of the pancreas. There is no demonstrated pancreatic mass or cyst. Right Kidney: Normal size of the right kidney. The right kidney measures 10 cm x 4.1 cm x 4.6 cm. Normal renal cortex. The right cortex measures 1.1 cm. There is no demonstrated renal mass or cyst. There is no right hydronephrosis. US/Abdomen Limited IMPRESSION: Status post cholecystectomy. Mildly dilated common bile duct measuring 9 mm. Electronically Signed: Chirag Mock MD at 13:54 EST ,
[2022-12-18] MEDS: Famotidine 200 MG/20 ML MDV 20 MG in 0.9% Normal Saline (Pres. free 8 ML 300 MG IV (14:48)
[2022-12-18] MEDS: LORazepam 2 MG/ML Syringe 0.5 MG IV (14:48)
[2022-12-18] MEDS: Mag Hydrox/Al Hydrox/Simeth 30 ML UDC PO (16:52)
[2022-12-18 17:15] LABS: Bedside Glucose 71 mg/dL (74-106)
--- NOTE | 2022-12-18 17:52 | NURSING ---
325 AGUEDA INTRACTABLE VOMITING, ABD PAIN, HYPOGLYCEMIA
--- NOTE | 2022-12-18 18:32 | HP.PCM.HOS_ITS ---
HPI - General General Date of Admission: 12/18/22 Date of Service: 12/18/22 Chief Complaint: Intractable Nausea and Vomiting HPI Narrative AKIL REYEZ, is a 47 F who presented to the emergency department [facility] on 12/18/2022 with intractable nausea and vomiting. Patient states that this has been ongoing for about 2 weeks. She has a history of gastroparesis that was diagnosed about a year ago by Dr. Cuevas. She has been compliant with her home medications. She states she is really not been able to eat or drink much for about 8 days now. She is able to take sips here and there but not drink large volumes. She also complains of pain in the epigastric region of her abdomen. Nothing is really helped her thus far. She denies any fever or chills. She did take MiraLAX bowel prep recently per Dr. Cuevas's inst ruction to see if cleaning out her bowels would help with her nausea vomiting and had liquid bowel movements that were brown in nature with this but bowels have been normal otherwise. I did discuss the case with Dr. 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 Patient does take benzos on a regular basis 2 mg of Klonopin daily with 1 mg as needed. She has previous cholecystectomy she thinks about 5 years ago. Vital signs at the time of presentation showed temperature of 98, heart rate 89, blood pressure 142/97, respirate 14, oxygen saturations 100% on room air. CBC was unremarkable. Her chemistry panel shows normal electrolytes other than some mild hyperchloremia at 108 and a BUN of 22 and a serum creatinine of 1.44. This appears to be close to where she has been running lately however I am not clear if she is chronically dehydrated because her serum creatinine has been better prior to this. Glucose was 73. Her ALT was 141 with a normal AST and her alk phos was 145. Lipase was 372. Abdominal ultrasound demonstrated that she was status postcholecystectomy but had a mildly dilated common bile duct at 9 mm. [facility] Medical History Alcohol use Anxiety Blackout Bradycardia Cardiology follow-up encounter Choledocholithiasis Cholelithiasis DUB (dysfunctional uterine bleeding) Easy bruising Hemiplegic migraine History of echocardiogram History of Holter monitoring History of kidney stones Insomnia Migraines Mycobacterial pneumonia Non-smoker Syncope Home Medications cholecalciferol (vitamin D3) 25 mcg (1,000 unit) tablet 1,000 units PO DAILY supplement 12/25/18 [History Last Taken 02/20/22] folic acid 1 mg tablet 2 mg PO DAILY supplement 12/25/18 [History Last Taken 02/20/22] tizanidine 4 mg capsule 4 mg PO DAILY PRN PRN Migraine Symptoms 12/25/18 [History Last Taken 02/20/22] magnesium oxide 500 mg capsule 500 mg PO BID supplement 11/11/19 [History Last Taken 02/20/22] biotin 10,000 mcg capsule 10,000 mcg PO DAILY 09/15/20 [History Last Taken 02/20/22] aspirin 81 mg tablet,delayed release 81 mg PO DAILY 02/13/22 [History Last Taken 02/20/22] eptinezumab-jjmr 100 mg/mL intravenous solution (Vyepti) 100 mg .Route [id number] 02/13/22 [History Last Taken 02/20/22] levonorgestrel 21 mcg/24 hours (8 yrs) 52 mg intrauterine device (Mirena) 1 device intrauterine ONCE 02/13/22 [History Last Taken 02/20/22] mecobalamin (vitamin B12) 1,000 mcg disintegrating tablet,sublingual 1,000 mcg sublingual DAILY 02/13/22 [History Last Taken 02/20/22] oxycodone-acetaminophen 10 mg-325 mg tablet 1 tab PO BID PRN Pain 02/13/22 [History Last Taken 02/20/22] ubrogepant 100 mg tablet 100 mg PO PRN PRN Migraine Headache 02/13/22 [History Last Taken 02/20/22] omega-3 fatty acids-vitamin E 1,000 mg capsule 1,000 cap PO DAILY 02/18/22 [History Last Taken 02/20/22] promethazine 25 mg tablet 25 mg PO PRN PRN NAUSES 02/18/22 [History Last Taken 02/20/22] clonazepam 2 mg tablet 2 mg PO DAILY 02/20/22 [History Last Taken 02/20/22] topiramate 200 mg tablet 50 mg PO QHS migraine 05/29/22 [History Last Taken Unknown] trazodone 50 mg tablet 50 mg PO QHS 05/29/22 [History Last Taken Unknown] benzonatate 200 mg capsule 200 mg PO BID-TID PRN cough #30 caps 06/23/22 [Rx Last Taken Unknown] prednisone 10 mg tablet 10 mg PO DAILY #8 tabs 06/23/22 [Rx Last Taken Unknown] naproxen 500 mg tablet 500 mg PO BID PRN #20 tabs 08/18/22 [Rx Last Taken Unknown] clonazepam 1 mg tablet 1 mg PO QAM PRN hiccups #30 tabs 09/30/22 [Rx Last Taken Unknown] famotidine 20 mg tablet 20 mg PO QHS #30 tabs 09/30/22 [Rx Last Taken Unknown] linaclotide 72 mcg capsule (Linzess) 72 mcg PO DAILY #30 caps 09/30/22 [Rx Last Taken Unknown] jfcezj-nqdrstam-psoanve 40,000-126,000-168,000 unit capsule, delay rel (Zenpep) 3 cap PO TID #320 caps 10/07/22 [Rx Last Taken Unknown] pantoprazole 40 mg tablet,delayed release (Protonix) 40 mg PO DAILY #30 tabs 11/15/22 [Rx Last Taken Unknown] promethazine 25 mg rectal suppository 25 mg GA Q6H PRN nausea and vomiting #12 ea 12/12/22 [Rx Last Taken Unknown] scopolamine base 1 mg over 3 days transdermal patch 1 patch transdermal Q3D PRN nausea and vomiting #10 ea 12/13/22 [Rx Last Taken Unknown] Qulipta 60 mg 12/18/22 [History Last Taken Unknown] Zyrtec 20 mg 12/18/22 [History Last Taken Unknown] Allergy/AdvReac Type Severity Reaction Status Date / Time erythromycin base AdvReac Nausea Verified 12/12/22 16:19 [Erythromycin Base] hydrocodone bitartrate AdvReac Other Verified 12/12/22 16:19 [From Vicodin] Family History Father MVP (mitral valve prolapse) Surgical History H/O unilateral oophorectomy History of bilateral salpingectomy History of cholecystectomy History of lithotripsy Social History (Updated 12/18/22 @ 19:[address] Silvia Coates DO) household members: spouse housing: house Smoking Status: Never smoker alcohol intake: never substance use type: does not use Vital Signs Vital Signs Vital Signs: 12/18/22 10:24 12/18/22 10:28 12/18/22 12:25 Temperature 98 F 97.7 F L 98.3 F Temperature Source Temporal Temporal Temporal Pulse Rate 89 79 64 Respiratory Rate 14 16 16 Blood Pressure 142/97 H 121/84 H 108/75 Blood Pressure Mean 112 96 86 Pulse Ox 100 99 100 Oxygen Delivery Method Room Air Room Air Room Air 12/18/22 12:27 12/18/22 13:39 12/18/22 15:07 Temperature 98 F 98 F Temperature Source Temporal Temporal Pulse Rate 64 66 66 Respiratory Rate 16 16 16 Blood Pressure 108/75 111/77 121/77 H Blood Pressure Mean 86 88 91 Pulse Ox 100 100 97 Oxygen Delivery Method Room Air Room Air Room Air 12/18/22 15:08 12/18/22 16:30 12/18/22 16:31 Temperature 98 F Temperature Source Temporal Pulse Rate 66 67 67 Respiratory Rate 16 16 16 Blood Pressure 121/77 H 94/62 94/62 Blood Pressure Mean 91 72 72 Pulse Ox 97 96 96 Oxygen Delivery Method Room Air Room Air Room Air 12/18/22 18:14 12/18/22 18:14 Temperature 97.8 F Temperature Source Temporal Pulse Rate 69 69 Respiratory Rate 16 16 Blood Pressure 105/64 105/64 Blood Pressure Mean 77 77 Pulse Ox 96 Oxygen Delivery Method Room Air Weight Weight: 53.3 kg Body Mass Index (BMI) 21.4 Physical Exam Const alert, oriented x3 and no apparent distress Constitutional Narrative: Thin, middle-aged, white female, sitting up in bed, home examined at bedside, appears comfortable and nontoxic at this time General Appearance: cooperative HEENT normocephalic, head/scalp atraumatic and hearing grossly normal bilaterally HEENT Narrative: Mucous membranes appear slightly dry, Mallampati is 2, no thrush Eyes PERRL, EOMs intact bilaterally and conjunctivae normal Eyes Narrative: No scleral icterus Resp normal respiratory effort, no retractions, no use of accessory muscles and clear to auscultation bilaterally Auscultation: Negative for rales, rhonchi or wheezes Cardio regular rate, regular rhythm, S1 normal heart sound, S2 normal heart sound, no murmurs, no rub, no gallops and no clicks GI normal to inspection, nondistended, normoactive bowel sounds, soft to palpation and non-distended GI Narrative: Mild tenderness noted in the epigastrium with no radiation Extremity no clubbing, cyanosis or edema Extremity Narrative: 2+ pedal pulses Neuro oriented x3, CN's II-XII intact bilaterally, moves all extremities and no focal motor deficits Speech: speech normal Psych Psych Narrative: Affect is flat Mood & Affect: anxious Results Lab / Micro Data Result Diagrams: 12/18/22 11:31 12/18/22 11:31 Labs: Laboratory Results - last 24 hr 12/18/22 11:31: WBC 4.9, RBC 4.85, Hgb 13.9, Hct 42.2, MCV 87.0, MCH 28.7, MCHC 32.9, RDW Std Deviation 38.8, RDW Coeff of Brian 12.1, Plt Count 175, MPV 9.7, Immature Gran % (Auto) 0.200, Neut % (Auto) 58.5, Lymph % (Auto) 31.9, [place] % (Auto) 7.4, Eos % (Auto) 1.4, Baso % (Auto) 0.6, Absolute Neuts (auto) 2.9, Absolute Lymphs (auto) 1.56, Nucleated RBC % 0 12/18/22 11:31: Sodium 140, Potassium 3.8, Chloride 108 H, Carbon Dioxide 23.0, Anion Gap 9, BUN 22 H, Creatinine 1.44 H, Estim Creat Clear Calc 38.20, Est GFR (MDRD) Af Amer 50 L, Est GFR (MDRD) Non-Af 41 L, BUN/Creatinine Ratio 15.3, Glucose 73 L, Calcium 10.0, Total Bilirubin 0.50, AST 28, ALT 141 H, Alkaline Phosphatase 145 H, Total Protein 7.2, Albumin 4.2, Globulin 3.0, Albumin/Globulin Ratio 1.4, Lipase 372 12/18/22 16:56: POC Glucose 71 L Radiology Impression Abdomen Ultrasound 12/18/22 12:46 IMPRESSION: Status post cholecystectomy. Mildly dilated common bile duct measuring 9 mm. Electronically Signed: Chirag Mock MD at 13:54 EST , Assessment & Plan Assessment/Plan (1) Abdominal pain: (2) Intractable nausea and vomiting: (3) Common bile duct dilatation: (4) Elevated serum creatinine: PLAN: Plan Abdominal pain/intractable nausea and vomiting -Etiology is unclear -MRCP with common bile duct dilation -Diet with clear liquid diets -D5 normal saline infusion at 125 cc/h -Antiemetics with Zofran and Compazine for breakthrough -As needed pain medication with morphine -Advance diet as able -GI consultation -Continue home medications as able for gastroparesis Common bile duct dilation -Anticipate this is likely related to her previous cholecystectomy however we will check an MRCP with her nausea vomiting and elevated alkaline phos/ALT Elevated serum creatinine -Baseline is unclear -Lately it appears that her serum creatinine has been fluctuant -We will high it and repeat in a.m. hopefully this will be able to establish a baseline Gastroparesis -Continue home medications Migraine headaches -Continue home medication -Continue home infusions after discharge -No current issue Anxiety/insomnia -Continue home medications -Would recommend tapering back on benzodiazepines and transition to a nonaddictive substance as I suspect this may be contributing to her abdominal pain nausea and vomiting DVT prophylaxis -Continue heparin 5000 units twice daily CODE STATUS Full code Charges/Coding Visit Charges Inpatient E&M: 84258 Init Hosp L2
[2022-12-18] MEDS: Dextrose 5%/0.9% NaCl 1,000 ML 125 ML IV (22:49)
[2022-12-18] MEDS: traZODone 50 MG Tablet PO (22:51)
[2022-12-18] MEDS: clonazePAM 1 MG Tablet 2 MG PO (22:51)
[2022-12-18] MEDS: Heparin Injection (Vial) 5,000 UNIT/ML VIAL 5000 UNIT SC (22:52)
[2022-12-18] MEDS: Topiramate 50 MG Tablet PO (22:52)
[2022-12-18] MEDS: Morphine 2 MG/ML Syringe IV (23:22)
[2022-12-18] MEDS: 0.9% Saline Lock 10 ML Syringe IV (23:23)
[2022-12-19 03:00] VITALS: BP 81/59; PULSE 60; RESP 16; TEMP 36.6; O2SAT 100
[2022-12-19 05:00] VITALS: BP 92/60; PULSE 55; RESP 16; TEMP 36.6; O2SAT 100
[2022-12-19] MEDS: Dextrose 5%/0.9% NaCl 1,000 ML 125 ML IV ×2 (06:40→19:30)
[2022-12-19 06:50] LABS: Phosphorus 2.9 mg/dL (2.5-4.9)
[2022-12-19 07:10] LABS: ALB/GLOB Ratio 1.2 RATIO (0.9-2.4); AST(SGOT) 20 U/L (15-37); Alanine Aminotransfer ALT/SGPT 96 U/L (13-56); Alkaline Phosphatase 107 U/L (45-117); Anion Gap 7 (5-15); BUN 17 mg/dL (7-18); BUN/Creat Ratio 14.7 RATIO (10-20); Calcium,Total 8.7 mg/dL (8.5-10.1); Chloride 112 mmol/L (98-107); Creatinine, Serum 1.16 mg/dL (0.55-1.02); EST Glomerular Filtration Rate 53 mL/min (>60); Est Glom Filt Rate - Afr Amer 64 mL/min (>60); Estimated Creatinine Clearance 47.42 ml/min; Globulin 2.4 g/dL (2.2-4.2); Glucose 123 mg/dL (74-106); Magnesium 2.4 mg/dL (1.6-2.6); Potassium 3.5 mmol/L (3.5-5.1); Protein, Total 5.4 g/dL (6.4-8.2); Sodium Level 142 mmol/L (136-145); Thyroid Stim Hormone (TSH) 6.37 uIU/mL (0.358-3.74)
[2022-12-19] MEDS: Aspirin E.C. 81 MG Tablet PO (07:57)
[2022-12-19] MEDS: Morphine 2 MG/ML Syringe IV (08:10)
[2022-12-19] MEDS: Ondansetron 4 MG/2 ML Vial IV ×2 (08:10→17:39)
[2022-12-19 09:00] VITALS: BP 102/64; PULSE 80; RESP 16; TEMP 36.6; O2SAT 100
--- NOTE | 2022-12-19 09:00 | MRI_ITS ---
EXAM: MR ABDOMEN WITHOUT INTRAVENOUS CONTRAST, MRCP PROTOCOL CLINICAL INDICATION: Abd pain/common bile duct TECHNIQUE: Multiplanar and multisequence MR images of the abdomen without intravenous contrast obtained with MRCP sequence. Three-dimensional post-processing reconstructions were performed. This report was created using [employer] report generation technology. CONTRAST: Abdominal ultrasound 12/18/2022, CT abdomen and pelvis 12/12/2022 COMPARISON: None. FINDINGS: LOWER THORAX: Normal. No pleural effusion. LIVER: Normal. Normal morphology. GALLBLADDER AND BILE DUCTS: Gallbladder is absent. Common bile duct measures 12 mm in maximum diameter. No evidence of an obstructing stone or mass. PANCREAS: Pancreatic duct is normal. No focal solid or cystic mass. SPLEEN: Normal. Non-enlarged. ADRENALS: Normal. No nodules. KIDNEYS AND URETERS: Normal. Normal renal size and position. No hydronephrosis. STOMACH AND BOWEL: Fluid distention of the large bowel suggestive of ileus. INTRAPERITONEAL SPACE: Normal. No ascites or other fluid collection. VASCULATURE: Normal. Abdominal aorta is non-dilated. LYMPH NODES: No enlarged lymph nodes. MRI/MRCP Abdomen without Contrast IMPRESSION: 1. 12 mm common bile duct without evidence of an obstructing stone or mass. 2. Large bowel ileus. Electronically Signed: Chad Davis MD at 10:21 EST ,
--- NOTE | 2022-12-19 09:09 | PN.HOSP_ITS ---
Subjective Subjective No longer vomiting but she is having continued nausea. Abdominal pain is mild and epigastric Objective Data Objective Data Vital Signs: Vital Signs Temp Pulse Resp BP Pulse Ox O2 Del Method 97.9 F 55 L 16 92/60 100 Room Air 12/19/22 05:00 12/19/22 05:00 12/19/22 05:00 12/19/22 05:00 12/19/22 05:00 12/19/22 05:00 Oxygen Delivery Method Room Air Weight: 117 lb 15.157 oz Body Mass Index (BMI) 21.5 Intake & Output: Intake and Output for Last 24 Hours 12/18/22 12/19/22 12/20/22 03:59 03:59 03:59 Intake Total 1171.5 / 1171.5 981.25 / 981.25 Balance 1171.5 / 1171.5 981.25 / 981.25 Lab / Micro Data Result Diagrams: 12/18/22 11:31 12/19/22 05:35 Labs: Laboratory Results - last 24 hr 12/18/22 11:31: WBC 4.9, RBC 4.85, Hgb 13.9, Hct 42.2, MCV 87.0, MCH 28.7, MCHC 32.9, RDW Std Deviation 38.8, RDW Coeff of Brian 12.1, Plt Count 175, MPV 9.7, Immature Gran % (Auto) 0.200, Neut % (Auto) 58.5, Lymph % (Auto) 31.9, [place] % ( Auto) 7.4, Eos % (Auto) 1.4, Baso % (Auto) 0.6, Absolute Neuts (auto) 2.9, Absolute Lymphs (auto) 1.56, Nucleated RBC % 0 12/18/22 11:31: Sodium 140, Potassium 3.8, Chloride 108 H, Carbon Dioxide 23.0, Anion Gap 9, BUN 22 H, Creatinine 1.44 H, Estim Creat Clear Calc 38.20, Est GFR (MDRD) Af Amer 50 L, Est GFR (MDRD) Non-Af 41 L, BUN/Creatinine Ratio 15.3, Glucose 73 L, Calcium 10.0, Total Bilirubin 0.50, AST 28, ALT 141 H, Alkaline Phosphatase 145 H, Total Protein 7.2, Albumin 4.2, Globulin 3.0, Albumin/Globulin Ratio 1.4, Lipase 372 12/18/22 16:56: POC Glucose 71 L 12/19/22 05:35: Sodium 142, Potassium 3.5, Chloride 112 H, Carbon Dioxide 23.0, Anion Gap 7, BUN 17, Creatinine 1.16 H, Estim Creat Clear Calc 47.42, Est GFR (MDRD) Af Amer 64, Est GFR (MDRD) Non-Af 53 L, BUN/Creatinine Ratio 14.7, Glucose 123 H, Calcium 8.7, Magnesium 2.4, Total Bilirubin 0.20, AST 20, ALT 96 H, Alkaline Phosphatase 107, Total Protein 5.4 L, Albumin 3.0 L, Globulin 2.4, Albumin/Globulin Ratio 1.2, TSH 6.37 H 12/19/22 05:35: Phosphorus 2.9 Radiography Diagnostic Testing: Radiology Impression Abdomen Ultrasound 12/18/22 12:46 IMPRESSION: Status post cholecystectomy. Mildly dilated common bile duct measuring 9 mm. Electronically Signed: Chirag Mock MD at 13:54 EST , Physical Exam Narrative General: Alert, Oriented x3, Cooperative, No apparent distress HEENT: Atraumatic, PERRLA, EOMI, Normocephalic Oral: Moist Mucosa Neck: Supple, No JVD Lungs: Clear to auscultation, Normal air movement, No rhonchi, No wheeze, No rales Cardiovascular: Regular rate, Regular Rhythm, Normal S1, Normal S2, No murmurs Abdomen: Soft, mild tender epigastric, Non-Distended, No Hepato-splenomegaly Extremities: No edema, Capillary Refill Less than 3 Seconds Skin: No rashes, No breakdown Musculoskeletal: No Tenderness to Palpation of Joints or Extremities Neurological: Cranial nerves II-XII grossly intact, Motor Exam 5/5 strength throughout, Sensory exam intact to light touch and pain Psych/Mental Status: Normal Affect, Appropriate Assessment & Plan Assessment/Plan (1) Abdominal pain: (2) Intractable nausea and vomiting: (3) Common bile duct dilatation: (4) Elevated serum creatinine: PLAN: Plan 1. Abdominal pain with intractable nausea and vomiting secondary to chronic gastroparesis ? Her common bile duct is 9 mm which is within the normal range postcholecystectomy, MRCP pending ? Continue with antiemetics as well as IV fluids ? Continue with GI consultation, appreciate assistance ? She states that she is supposed to have an outpatient EGD with Botox injections to try to help with her gastroparesis ? She is allergic to a lot of medications including scopolamine, Reglan, and erythromycin so I discussed with her expectations on being able to completely resolve her symptoms 2. Anxiety/insomnia/migraine headaches ? Stable ? Continue with her home medications DVT: Heparin Charges/Coding Visit Charges Inpatient E&M: 73086 Subs Hosp L2
[2022-12-19] MEDS: Heparin Injection (Vial) 5,000 UNIT/ML VIAL 5000 UNIT SC ×2 (10:30→21:26)
[2022-12-19] MEDS: Morphine 4 MG/ML Syringe IV ×3 (14:21→21:42)
--- NOTE | 2022-12-19 14:30 | CASEMGMT ---
RN CM PEARLER CM to room to meet with patient for initial transition planning/care coordination assessment. YONIS RIVERA introduced self and role at [facility]. Pt voices understanding and consents to assessment at this time. Pt resting in bed in no distress at this time. @ bedside. Pt is A/O at this time and answers all questions appropriately. Care providers, pharmacy, and demographics verified/updated at this time. PCP: Dr Pillai Specialists: Dr Cuevas-TOMY, Dr Palm-neurologist @ [facility] Preferred Pharmacy: [facility] Insurance: [employer] Prescription Benefit: Yes Living Will/HPOA: Pt does not currently have LW/HCPOA and interested in completing. JUSTYNA, Ashlee, made aware. LNOK: , 2 sons--ages 21 and 25 Living Arrangements: Lives w/her and 93-yr-old grandmother. Pt usually indep, but has recently had to assist w/bathing d/t weakness. assists w/laundry and other home tasks, as needed. Transportation: Pt states drives self and states no transportation concerns at this time. also drives. DME: Denies using any DME and denies needs. HHC/SNF: No hx of either. Pt wishes to return home and states has no concerns with going home at time of discharge. CM to follow for further discharge planning/needs. Pt and voice no further concerns/needs at this time. Advised them to ask for CM if any further questions/concerns/needs arise. They voice understanding. PLAN: Home w/spousal support. Follow for HHC or school health aide/nutrition consult for possible tube feedings @ d/c. JUSTYNA to see for AD. Mag BRIDGES RN, CM
[2022-12-19] MEDS: Oxymetazoline 0.05% 1 SPRAY SPRAY.BTL 2 SPRAY NASAL (15:15)
--- NOTE | 2022-12-19 15:30 | RAD_ITS ---
EXAM: XR ABDOMEN, 1 VIEW CLINICAL INDICATION: ng tube placement -- KUB with both diaphragms for NG/OG Verification TECHNIQUE: Frontal supine view of the abdomen/pelvis. This report was created using [employer] report [employer] technology. COMPARISON: None. FINDINGS: GASTROINTESTINAL TRACT: Gaseous distention of the large and small bowel suggestive of ileus. ORGANS: No organomegaly. BONES/JOINTS: No acute abnormality. SOFT TISSUES: No pathological calcification. TUBES, LINES AND DEVICES: Tip of the endogastric tube extends into the proximal stomach. Proximal sidehole is located just above the diaphragm. Recommend further insertion of the endogastric tube. Tip of the infusion catheter extends to the cavoatrial junction. RAD/Abdomen Single View (Portable) IMPRESSION: Recommend further advancing the endogastric tube. Electronically Signed: Chad Davis MD at 16:11 EST ,
[2022-12-19] MEDS: DiphenhydrAMINE 50 MG/ML Syringe 12.5 MG IV (16:57)
--- NOTE | 2022-12-19 16:57 | CON.PCM.GI_ITS ---
HPI Consult Data Date of Consult: 12/19/22 HPI Narrative Reason for Consultation: Nausea and vomiting HPI Narrative: AKIL REYEZ, is a 47 F who presents to the ED with worsening abdominal pain followed by nausea vomiting. She has a 5-month history of recurrent vomiting. This was associated with nausea. He would vomit at least 5 times per day. The vomitus was non-projectile, would usually take the colour of the food eaten and was never bilious. There is also a history of abdominal pain, dysphagia, fever or headache. The colour of stools was normal but she had complained of constipation for 6 days prior to admission. SHe also admitted to weight loss, which could not be quantified. She had a CT scan of the abdomen pelvis that did show constipation approximately 1 week ago. She came back into the hospital as she had worsening bloating and abdominal pain. She got an upright KUB which had shown diffuse ileus. She takes 2 mg of Klonopin at night and 1 mg of Klonopin during the morning for a history of chronic migraines. She also takes other medicines and has done multiple Botox injections and IV medicines for severe migraines. We got to know her several months ago for a problem with hiccups. She underwent an upper endoscopy and was discovered to have a small hiatal hernia but she had food in her stomach. She underwent esophageal manometry and was diagnosed as abnormal esophageal dysmotility disorder. She underwent a gastric emptying study and had a 1 hour emptying time at 91% and a T half of 311 minutes. She was diagnosed with severe gastroparesis. She was not able to be treated with metoclopramide therapy due to heart racing when she tried the medicine. She had multiple drug allergies diagnosed with most that causing a side effect of nausea. She currently is at 117 pounds and has lost approximately 12 pounds over the last 9 days. She says her main problem is ab dominal pain when she tries to eat. Prior to attending [facility] he had been seen in several health facilities and had been treated with promethazine, but had had no relief of his symptoms. An endoscopy done at another hospital was documented as follows: ?endoscopy shows reflux oesophagitis and lax lower oesophageal sphincter? There was no comment on whether there were structural abnormalities at the level of the pylorus or duodenum. He had been diagnosed with type 2 diabetes mellitus in September 2010 on the basis of high random blood glucose readings. He had been prescribed glibenclamide but stopped as he felt it was making him vomit more, and was now only taking metformin. Blood glucose measurements since the start of treatment were not available so we do not know how well the diabetes had been controlled. She has no alcohol consumption. She has no history of smoking. She is with 3 children. There was no family history of diabetes. [facility] Medical History Alcohol use Anxiety Blackout Bradycardia Cardiology follow-up encounter Choledocholithiasis Cholelithiasis DUB (dysfunctional uterine bleeding) Easy bruising Hemiplegic migraine History of echocardiogram History of Holter monitoring History of kidney stones Insomnia Migraines Mycobacterial pneumonia Non-smoker Syncope Home Medications cholecalciferol (vitamin D3) 25 mcg (1,000 unit) tablet 1,000 units PO DAILY supplement 12/25/18 [History Last Taken 12/18/22] tizanidine 4 mg capsule 4 mg PO DAILY PRN PRN Migraine Symptoms 12/25/18 [History Last Taken 02/20/22] magnesium oxide 500 mg capsule 500 mg PO BID supplement 11/11/19 [History Last Taken 12/18/22] biotin 10,000 mcg capsule 10,000 mcg PO DAILY hair loss 09/15/20 [History Last Taken 12/18/22] aspirin 81 mg tablet,delayed release 81 mg PO DAILY blood thinner 02/13/22 [History Last Taken 12/18/22] eptinezumab-jjmr 100 mg/mL intravenous solution (Vyepti) 100 mg .Route [id number] migraines 02/13/22 [History Last Taken 09/25/22] levonorgestrel 21 mcg/24 hours (8 yrs) 52 mg intrauterine device (Mirena) 1 device intrauterine ONCE control 02/13/22 [History Last Taken 02/20/22] omega-3 fatty acids-vitamin E 1,000 mg capsule 1,000 cap PO DAILY supplement 02/18/22 [History Last Taken 12/18/22] promethazine 25 mg tablet 25 mg PO PRN PRN Nausea 02/18/22 [History Last Taken 02/20/22] clonazepam 2 mg tablet 2 mg PO QHS sleep 02/20/22 [History Last Taken 12/17/22] topiramate 200 mg tablet 50 mg PO QHS migraine 05/29/22 [History Last Taken 12/17/22] trazodone 50 mg tablet 50 mg PO QHS sleep 05/29/22 [History Last Taken 12/17/22] famotidine 20 mg tablet 20 mg PO QHS #30 tabs 09/30/22 [Rx Last Taken 12/17/22] linaclotide 72 mcg capsule (Linzess) 72 mcg PO DAILY #30 caps 09/30/22 [Rx Last Taken 12/18/22] syufis-xfqecaij-oytrndl 40,000-126,000-168,000 unit capsule, delay rel (Zenpep) 3 cap PO TID #320 caps 10/07/22 [Rx Last Taken 12/18/22] pantoprazole 40 mg tablet,delayed release (Protonix) 40 mg PO DAILY #30 tabs 11/15/22 [Rx Last Taken 12/18/22] promethazine 25 mg rectal suppository 25 mg OR Q6H PRN nausea and vomiting #12 ea 12/12/22 [Rx Last Taken Unknown] Qulipta 60 mg PO/SL DAILY migraines 12/18/22 [History Last Taken 12/18/22] Zyrtec 20 mg PO/SL QHS allergies 12/18/22 [History Last Taken 12/17/22] levomefolate calcium 15 mg tablet (L-Methylfolate) 15 mg PO DAILY supplement 12/18/22 [History Last Taken 12/18/22] Allergy/AdvReac Type Severity Reaction Status Date / Time erythromycin base AdvReac Nausea Verified 12/12/22 16:19 [Erythromycin Base] hydrocodone bitartrate AdvReac Other Verified 12/12/22 16:19 [From Vicodin] Family History Father MVP (mitral valve prolapse) Surgical History H/O unilateral oophorectomy History of bilateral salpingectomy History of cholecystectomy History of lithotripsy Social History (Updated 12/18/22 @ 19:[address] Silvia Coates DO) household members: spouse housing: house Smoking Status: Never smoker alcohol intake: never substance use type: does not use ROS Review of Systems ROS Unobtainable: other Constitutional Constitutional: Denies fatigue, fever(s), poor appetite, weight gain or weight loss ENT HEENT: Denies mouth lesions Cardiovascular Cardiovascular: Denies abdominal bloating, abdominal edema or abdominal pain Respiratory/Chest Respiratory/Chest: Denies change in mental status, change in phlegm color, chest congestion or chest tightness Gastrointestinal Gastrointestinal: Denies belching, bloating, change in bowel habits, change in stool character, chewing difficulty, coffee ground emesis, constipation, cramping, diarrhea, dyspepsia, dysphagia, early satiety, excessive flatus, fecal incontinence, heartburn, hematemesis, hematochezia, hemorrhoids, loose stools, melena, nausea, odynophagia, rectal bleeding, tenesmus, vomiting or weight changes Genitourinary Genitourinary: Denies abdominal discomfort, burning urination or itching Musculoskeletal Musculoskeletal: Reports as per HPI; Denies muscle weakness or myalgias Integumentary Integumentary: Denies jaundice Neurologic Neurologic: Denies lack of coordination or weakness Psychiatric Psychiatric: Denies confusion, depression, memory loss, mood swings, paranoia or suicidal ideation Endocrine Endocrinology: Denies systems reviewed and no addt'l complaints, except as documented Hematologic/Lymphatic Hematologic/Lymphatic: Denies anemia, easy bleeding, easy bruising or lymphadenopathy Allergic/Immunologic Allergic/Immunologic: Denies systems reviewed and no addt'l complaints, except as documented Physical Exam Narrative General: Alert, Oriented x3, Cooperative, No apparent distress HEENT: Atraumatic, PERRLA, EOMI, Normocephalic Oral: Moist Mucosa Neck: Supple, No JVD Lungs: Clear to auscultation, Normal air movement, No rhonchi, No wheeze, No rales Cardiovascular: Regular rate, Regular Rhythm, Normal S1, Normal S2, No murmurs Abdomen: Soft, mild tender epigastric, Non-Distended, No Hepato-splenomegaly Extremities: No edema, Capillary Refill Less than 3 Seconds Skin: No rashes, No breakdown Musculoskeletal: No Tenderness to Palpation of Joints or Extremities Neurological: Cranial nerves II-XII grossly intact, Motor Exam 5/5 strength throughout, Sensory exam intact to light touch and pain Psych/Mental Status: Normal Affect, Appropriate Medical Records Data Medical Nutrition Assessment Dietitian: Malnutrition Criteria Met Start: 12/19/22 12:01 Freq: Status: Active Protocol: Document 12/19/22 16:51 RMA (Rec: 12/19/22 16:53 RMA [id number]) Nutrition Malnutrition Evidence of Malnutrition Exists Yes Malnutrition (severe): Acute Illness/Injury Evidenced By Suboptimal Energy Intake ( Severe),Weight Loss (Severe) Intake Problem Inadequate Oral Intake Etiology related to altered GI function Signs/Symptoms as evidenced by NPO/clear liquid diet Status Active Problem Clinical Problem Acute Disease or Injury Related Malnutrition Etiology Severe protein-calorie malnutrition in the context of acute disease related to inadequate oral intake and altered GI function Signs/Symptoms as evidenced by ~12% weight loss and PO meeting less than 50% estimated nutrition needs x past 4 months Status Active Problem Recommendation Dietitian Recommendations/Changes Recommend fiber/fat restricted diet as tolerated. Will add 120ml ensure clear 4 times per day w/ medpass as tolerated. Consider parenteral nutrition support if unable to advance diet in next 24-48 hours. Further diet education and ONS samples prior to d/c. Encouraged to call RD as needed. Lab / Micro Data Result Diagrams: 12/18/22 11:31 12/19/22 05:35 Labs: Laboratory Results - last 24 hr 12/18/22 16:56: POC Glucose 71 L 12/19/22 05:35: Sodium 142, Potassium 3.5, Chloride 112 H, Carbon Dioxide 23.0, Anion Gap 7, BUN 17, Creatinine 1.16 H, Estim Creat Clear Calc 47.42, Est GFR (MDRD) Af Amer 64, Est GFR (MDRD) Non-Af 53 L, BUN/Creatinine Ratio 14.7, Glucose 123 H, Calcium 8.7, Magnesium 2.4, Total Bilirubin 0.20, AST 20, ALT 96 H, Alkaline Phosphatase 107, Total Protein 5.4 L, Albumin 3.0 L, Globulin 2.4, Albumin/Globulin Ratio 1.2, TSH 6.37 H 12/19/22 05:35: Phosphorus 2.9 Radiology Impression MRCP 12/19/22 09:00 IMPRESSION: 1. 12 mm common bile duct without evidence of an obstructing stone or mass. 2. Large bowel ileus. Electronically Signed: Chad Davis MD at 10:21 EST , KUB X-Ray 12/19/22 15:30 IMPRESSION: Recommend further advancing the endogastric tube. 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 Weber principles in the management of gastroparesis are the correction of exacerbating factors, including optimization of glucose and electrolyte levels, the provision of nutritional support, the use of prokinetic and symptomatic therapies and counselling. She agreed to have a NG tube with Dobbhoff tube placed for not only improvement of nausea but also for nutritional support. She also agreed to getting azithromycin to increase her more alert and complex after she was given H2 receptor cecy, steroids and Benadryl. I also went over the medical and surgical modalities for severe gastroparesis. I told her at this institution we can do an upper endoscopy with Botox but if that is unsuccessful then we will need to refer her to a gastroparesis center of excellence. Metoclopramide, domperidone and erythromycin are the commonest prokinetic drugs used in gastroparesis. Erythromycin interacts with the motilin receptor and may promote gastric emptying. Studies have shown these agents to increase gastric emptying. When pain relief is required, tramadol and opiates should be avoided. These have inhibiting effects on motility. 1. Abdominal pain with intractable nausea and vomiting secondary to chronic gastroparesis ? Her common bile duct is 9 mm which is within the normal range postcholecystectomy, MRCP pending ? Continue with antiemetics as well as IV fluids ? Continue with GI consultation, appreciate assistance ? She states that she is supposed to have an outpatient EGD with Botox injection s to try to help with her gastroparesis ? She is allergic to a lot of medications including scopolamine, Reglan, and erythromycin so I discussed with her expectations on being able to completely resolve her symptoms 2. Anxiety/insomnia/migraine headaches ? Stable ? Continue with her home medications DVT: Heparin Charges/Coding Visit Charges Inpatient E&M: 38373 Init Hosp L3
--- NOTE | 2022-12-19 17:00 | RAD_ITS ---
STUDY: XR Abdomen 1 View 12/19/2022 4:48 PM REASON FOR EXAM: Female, 47 years old. ABDOMINAL PAIN NGT placement -- advanced from previous study TECHNIQUE: XR Abdomen 1 View COMPARISON: Study done yesterday FINDINGS: Normal visualized lung bases. Right ported catheter. There is a feeding tube/ nasogastric tube noted. The tip is in the region of the stomach. There is no demonstrated free abdominal air. Normal soft tissue structures. Normal visualized osseous structures. RAD/Abdomen Single View (Portable) IMPRESSION: There is a feeding tube/ nasogastric tube noted. The tip is in the region of the stomach. Electronically Signed: Ivan Chen MD at 17:26 EST ,
[2022-12-19 17:07] VITALS: BP 124/86; PULSE 78; RESP 17; TEMP 36.7; O2SAT 98
[2022-12-19 21:09] VITALS: BP 122/88; PULSE 55; RESP 18; TEMP 36.3; O2SAT 100
[2022-12-19] MEDS: traZODone 50 MG Tablet PO (21:26)
[2022-12-19] MEDS: Topiramate 50 MG Tablet PO (21:26)
[2022-12-19] MEDS: clonazePAM 1 MG Tablet 2 MG PO (21:26)
[2022-12-20] VITALS (13 sets, daily range): BP systolic 100–129; BP diastolic 63–92; PULSE 50–72; RESP 10–18; TEMP 36.1–36.4; O2SAT 96–100; BMI 21.7
[2022-12-20] MEDS: Dextrose 5%/0.9% NaCl 1,000 ML 125 ML IV ×3 (03:10→22:27)
[2022-12-20 06:30] LABS: Anion Gap 6 (5-15); BUN 9 mg/dL (7-18); BUN/Creat Ratio 8.6 RATIO (10-20); Calcium,Total 8.8 mg/dL (8.5-10.1); Chloride 116 mmol/L (98-107); Creatinine, Serum 1.05 mg/dL (0.55-1.02); EST Glomerular Filtration Rate 60 mL/min (>60); Est Glom Filt Rate - Afr Amer 72 mL/min (>60); Estimated Creatinine Clearance 49.98 ml/min; Glucose 186 mg/dL (74-106); Potassium 4.1 mmol/L (3.5-5.1); Sodium Level 142 mmol/L (136-145)
[2022-12-20 06:47] LABS: Absolute Lymphocyte Count 0.63 X10^3/uL (0.83-4.51); Absolute Neutrophil Count 2.3 X10^3/uL (2.0-7.7); Hematocrit 37.2 % (37-47); Hemoglobin 11.9 g/dL (12.0-15.0); Lymphocyte # 0.63 X10^3/ul (0.83-4.51); Lymphocyte % 20.7 % (19-41); Mean Corpuscular Hgb 28.3 pg (27.0-32.0); Mean Corpuscular Volume 88.6 fL (81-99); Mean Platelet Vol. 9.9 fl (6.2-12.0); Monocyte# 0.08 X10^3/uL; Monocyte% 2.6 % (0-10); NRBC Flagged by Analyzer 0 % (0-5); Neutrophil # 2.33 X10^3/uL (2.7-7.7); Neutrophil % 76.4 % (47-70); Platelet Count 139 K/mm3 (150-450); RBC Distribution Width CV 12.2 % (11.6-14.6); RBC Distribution Width SD 39.8 fl (35.1-43.9); White Blood Count 3.1 K/mm3 (4.4-11.0)
[2022-12-20 07:04] LABS: Partial Thromboplast Time 37.9 Seconds (24.1-36.2)
[2022-12-20] MEDS: Lactated Ringers 1,000 ML 15 ML IV (07:08)
[2022-12-20] MEDS: Botulinum Toxin A 100 Units Vial IJ (07:58)
[2022-12-20] MEDS: 0.9% Saline Lock 10 ML Syringe IV ×3 (07:59→17:54)
[2022-12-20] MEDS: 0.9% Normal Saline (Pres. free 10 ML Vial (07:59)
--- NOTE | 2022-12-20 08:08 | OP.EGD_ITS ---
Patient Name: Stephanie Michelle Procedure Date: 12/20/2022 7:33 AM Date of : 1975 Age: 47 Procedure: Upper GI endoscopy Indications: Epigastric abdominal pain, Dyspepsia Providers: Jamie Cuevas DO Medicines: Monitored Anesthesia Care Patient Profile: This is a 47 year old female. Refer to note in patient chart for documentation of history and physical. Patient has symptoms of chronic abdominal cramping, chronic abdominal distention and chronic epigastric abdominal pain. Complications: No immediate complications. Procedure: Pre-Anesthesia Assessment: - Prior to the procedure, a History and Physical was performed, and patient medications and allergies were reviewed. The patient is competent. The risks and benefits of the procedure and the sedation options and risks were discussed with the patient. All questions were answered and informed consent was obtained. Patient identification and proposed procedure were verified by the physician in the pre-procedure area. Mental Status Examination: alert and oriented. Airway Examination: normal oropharyngeal airway and neck mobility. Respiratory Examination: clear to auscultation. CV Examination: normal. Prophylactic Antibiotics: The patient does not require prophylactic antibiotics. Prior Anticoagulants: The patient has taken no previous anticoagulant or antiplatelet agents. After reviewing the risks and benefits, the patient was deemed in satisfactory condition to undergo the procedure. The anesthesia plan was to use monitored anesthesia care (MAC). Immediately prior to administration of medications, the patient was re-assessed for adequacy to receive sedatives. The heart rate, respiratory rate, oxygen saturations, blood pressure, adequacy of pulmonary ventilation, and response to care were monitored throughout the procedure. The physical status of the patient was re-assessed after the procedure. After obtaining informed consent, the endoscope was passed under direct vision. Throughout the procedure, the patient's blood pressure, pulse, and oxygen saturations were monitored continuously. The gastroscope was introduced through the mouth, and advanced to the second part of duodenum. The upper GI endoscopy was accomplished without difficulty. The patient tolerated the procedure well. Scope In: 7:54:27 AM Scope Out: 8:02:15 AM Total Procedure Duration Time 0 hours 7 minutes 48 seconds Findings: The examined esophagus was normal. Localized moderate inflammation characterized by erosions and erythema was found in the gastric body. Biopsies were taken with a cold forceps for histology. Verification of patient identification for the specimen was done. Estimated blood loss was minimal. A guide wire was inserted into the stomach and the endoscope was removed. A 14 Fr nasogastric tube was advanced over the guide wire into the stomach. Placement was confirmed by scope visualization. The endoscope was reinserted along side the gastric tube. Estimated blood loss was minimal. The second portion of the duodenum was normal. Biopsies were taken with a cold forceps for histology. Verification of patient identification for the specimen was done. Estimated blood loss was minimal. A benign-appearing, intrinsic mild stenosis was found at the pylorus. This was traversed. Area was successfully injected with 100 units botulinum toxin. Impression: - Normal esophagus. - Bile gastritis. Biopsied. - Normal second portion of the duodenum. Biopsied. - Gastric stenosis was found at the pylorus. Injected with botulinum toxin. - Feeding tube placement was successfully performed. Recommendation: - Return patient to [facility] for ongoing care. - Tube feedings today. - Continue present medications. Procedure Code(s): --- Professional --- 31674, Esophagogastroduodenoscopy, flexible, transoral; with insertion of intraluminal tube or catheter 10629, 59, Esophagogastroduodenoscopy, flexible, transoral; with directed submucosal injection(s), any substance 25291, 51, Esophagogastroduodenoscopy, flexible, transoral; with biopsy, single or multiple CPT copyright 2017 [employer]. All rights reserved. The codes documented in this report are preliminary and upon commissioned defence force officer review may be revised to meet current compliance requirements. Jamie Cuevas DO 12/20/2022 8:08:19 AM This report has been signed electronically. Number of Addenda: 0 Note Initiated On: 12/20/2022 7:33 AM
--- NOTE | 2022-12-20 08:09 | OP.CCLET_ITS ---
12/20/2022 Nikky Pillai [address] [place] [address] Re : Upper GI endoscopy procedure for Stephanie Michelle Dear Dr. Pillai This procedure was performed on Tuesday, December 20, 2022. My impressions and recommendations are as follows: Impressions : - Normal esophagus. - Bile gastritis. Biopsied. - Normal second portion of the duodenum. Biopsied. - Gastric stenosis was found at the pylorus. Injected with botulinum toxin. - Feeding tube placement was successfully performed. Recommendations : - Return patient to [facility] for ongoing care. - Tube feedings today. - Continue present medications. My findings are described in the full procedure note, which is enclosed. If I can be of further assistance, please feel free to contact me at . Sincerely, Jamie Cuevas, 12/20/2022 8:08:19 AM This report has been signed electronically.
--- NOTE | 2022-12-20 09:04 | SUR.PHASEI ---
delay on getting put out of pacu due to had no transport.
--- NOTE | 2022-12-20 10:23 | PN.HOSP_ITS ---
Subjective Subjective Doing well, no issues overnight. Plan for EGD today Objective Data Objective Data Vital Signs: Vital Signs Temp Pulse Resp BP Pulse Ox O2 Del Method 97.2 F L 52 L 16 117/76 100 Room Air 12/20/22 09:15 12/20/22 09:15 12/20/22 09:15 12/20/22 09:15 12/20/22 09:15 12/20/22 09:15 Oxygen Delivery Method Room Air Weight: 117 lb 15.157 oz Body Mass Index (BMI) 21.7 Intake & Output: Intake and Output for Last 24 Hours 12/19/22 12/20/22 12/21/22 03:59 03:59 03:59 Intake Total 1171.5 / 1171.5 3753.75 / 3753.75 505.83 / 505.83 Output Total 100 / 100 Balance 1171.5 / 1171.5 3753.75 / 3753.75 405.83 / 405.83 Medical Nutrition Assessment Dietitian: Malnutrition Criteria Met Start: 12/19/22 12:01 Freq: Status: Active Protocol: Document 12/19/22 16:51 RMA (Rec: 12/19/22 16:53 RMA [id number]) Nutrition Malnutrition Evidence of Malnutrition Exists Yes Malnutrition (severe): Acute Illness/Injury Evidenced By Suboptimal Energy Intake ( Severe),Weight Loss (Severe) Intake Problem Inadequate Oral Intake Etiology related to altered GI function Signs/Symptoms as evidenced by NPO/clear liquid diet Status Active Problem Clinical Problem Acute Disease or Injury Related Malnutrition Etiology Severe protein-calorie malnutrition in the context of acute disease related to inadequate oral intake and altered GI function Signs/Symptoms as evidenced by ~12% weight loss and PO meeting less than 50% estimated nutrition needs x past 4 months Status Active Problem Recommendation Dietitian Recommendations/Changes Recommend fiber/fat restricted diet as tolerated. Will add 120ml ensure clear 4 times per day w/ medpass as tolerated. Consider parenteral nutrition support if unable to advance diet in next 24-48 hours. Further diet education and ONS samples prior to d/c. Encouraged to call RD as needed. Lab / Micro Data Result Diagrams: 12/20/22 06:40 12/20/22 05:50 Labs: Laboratory Results - last 24 hr 12/20/22 05:50: WBC Cancelled, Corrected WBC Cancelled, RBC Cancelled, Hgb Cancelled, Hct Cancelled, MCV Cancelled, MCH Cancelled, MCHC Cancelled, RDW Std Deviation Cancelled, RDW Coeff of Brian Cancelled, Plt Count Cancelled, MPV Cancelled, Immature Gran % (Auto) Cancelled, Neut % (Auto) Cancelled, Lymph % (Auto) Cancelled, [place] % (Auto) Cancelled, Eos % (Auto) Cancelled, Baso % (Auto) Cancelled, Absolute Neuts (auto) Cancelled, Absolute Lymphs (auto) Cancelled, Total Counted Cancelled, Neutrophils % (Manual) Cancelled, Band Neutrophils % Cancelled, Lymphocytes % (Manual) Cancelled, Monocytes % (Manual) Cancelled, Eosinophils % (Manual) Cancelled, Basophils % (Manual) Cancelled, Metamyelocytes % Cancelled, Myelocytes % Cancelled, Promyelocytes % Cancelled, Blast Cells % Cancelled, Plasma Cell % (Manual) Cancelled, Other Cells % Cancelled, Nucleated RBC % Cancelled, Nucleated RBCs/100 WBC Cancelled, Differential Comment Cancelled, Diff Path Review Cancelled, Hypersegmented Neuts Cancelled, Atypical Lymphocytes Cancelled, Reactive Lymphocytes Cancelled, Smudge Cells Cancelled, Toxic Granulation Cancelled, Toxic Vacuolation Cancelled, Dohle Bodies Cancelled, Guillaume Rods Cancelled, Platelet Estimate Cancelled, Plt Morphology Comment Cancelled, RBC Morphology Cancelled, Polychromasia Cancelled, Hypochromasia Cancelled, Poikilocytosis Cancelled, Basophilic Stippling Canc elled, Anisocytosis Cancelled, Microcytosis Cancelled, Macrocytosis Cancelled, Spherocytes Cancelled, Sickle Cells Cancelled, Target Cells Cancelled, Tear Drop Cells Cancelled, Ovalocytes Cancelled, Stomatocytes Cancelled, [place] Bodies Cancelled, [place] Cells Cancelled, Bite Cells Cancelled, Crenated Cell Cancelled, Acanthocytes (Spur) Cancelled, Rouleaux Cancelled, Schistocytes Cancelled 12/20/22 05:50: Sodium 142, Potassium 4.1, Chloride 116 H, Carbon Dioxide 20.0 L , Anion Gap 6, BUN 9, Creatinine 1.05 H, Estim Creat Clear Calc 49.98, Est GFR (MDRD) Af Amer 72, Est GFR (MDRD) Non-Af 60, BUN/Creatinine Ratio 8.6 L, Glucose 186 H, Calcium 8.8 12/20/22 05:50: APTT Cancelled 12/20/22 06:40: WBC 3.1 L, RBC 4.20, Hgb 11.9 L, Hct 37.2, MCV 88.6, MCH 28.3, MCHC 32.0, RDW Std Deviation 39.8, RDW Coeff of Brian 12.2, Plt Count 139 L, MPV 9.9, Immature Gran % (Auto) 0.300, Neut % (Auto) 76.4 H, Lymph % (Auto) 20.7, M bea % (Auto) 2.6, Eos % (Auto) 0.0, Baso % (Auto) 0.0, Absolute Neuts (auto) 2.3, Absolute Lymphs (auto) 0.63 L, Nucleated RBC % 0 12/20/22 06:40: APTT 37.9 H Radiography Diagnostic Testing: Radiology Impression KUB X-Ray 12/19/22 15:30 IMPRESSION: Recommend further advancing the endogastric tube. Electronically Signed: Chad Davis MD at 16:11 EST , KUB X-Ray 12/19/22 17:00 IMPRESSION: There is a feeding tube/ nasogastric tube noted. The tip is in the region of the stomach. Electronically Signed: Ivan Chen MD at 17:26 EST , Physical Exam Narrative General: Alert, Oriented x3, Cooperative, No apparent distress HEENT: Atraumatic, PERRLA, EOMI, Normocephalic, NG tube in place Oral: Moist Mucosa Neck: Supple, No JVD Lungs: Clear to auscultation, Normal air movement, No rhonchi, No wheeze, No rales Cardiovascular: Regular rate, Regular Rhythm, Normal S1, Normal S2, No murmurs Abdomen: Soft, mild tender epigastric, Non-Distended, No Hepato-splenomegaly Extremities: No edema, Capillary Refill Less than 3 Seconds Skin: No rashes, No breakdown Musculoskeletal: No Tenderness to Palpation of Joints or Extremities Neurological: Cranial nerves II-XII grossly intact, Motor Exam 5/5 strength throughout, Sensory exam intact to light touch and pain Psych/Mental Status: Normal Affect, Appropriate Assessment & Plan Assessment/Plan (1) Abdominal pain: (2) Intractable nausea and vomiting: (3) Common bile duct dilatation: (4) Elevated serum creatinine: PLAN: Plan 1. Abdominal pain with intractable nausea and vomiting secondary to chronic gastroparesis ? Her common bile duct is 9 mm which is within the normal range postcholecystectomy, MRCP was unremarkable ? Continue with antiemetics as well as IV fluids ? Continue with GI consultation, appreciate assistance ? Plan for EGD with possible Botox injection today ? She is allergic to a lot of medications including scopolamine, Reglan, and erythromycin so I discussed with her expectations on being able to completely resolve her symptoms 2. Anxiety/insomnia/migraine headaches ? Stable ? Continue with her home medications DVT: Heparin Charges/Coding Visit Charges Inpatient E&M: 30114 Subs Hosp L2
[2022-12-20] MEDS: proCHLORPERazine 10 MG/2 ML Vial 5 MG IV ×3 (12:28→21:57)
[2022-12-20] MEDS: Aspirin E.C. 81 MG Tablet PO (12:30)
[2022-12-20] MEDS: LINACLOTIDE 72 MCG CAPSULE PO (12:30)
[2022-12-20] MEDS: Heparin Injection (Vial) 5,000 UNIT/ML VIAL 5000 UNIT SC ×2 (12:30→21:59)
--- NOTE | 2022-12-20 13:29 | CASEMGMT ---
Pt received feeding tube, spoke with curtains and draperies salesperson who has not seen pt yet. YONIS RIVERA in to pt room, discussed dc planning with pt. She states she prefers not to have HHC if possible. She would like to wait to decide to see what the feedings entail. Pt is aware that YONIS RIVERA will check back with her tomorrow.
--- NOTE | 2022-12-20 13:40 | CASEMGMT ---
Social Work SW met with pt to discuss advance directives. Pt does not feel up to completing documents at this time. SW provided documents and Advance Directive Rack Card. Pt made aware that if she would like to complete throughout hospital stay to request to see SW or can call for outpatient appointment. DYLAN Gallagher
[2022-12-20] MEDS: Jevity 1.5 1,000 ML 15 ML GT (21:50)
[2022-12-20] MEDS: Topiramate 50 MG Tablet PO (21:52)
[2022-12-20] MEDS: MELATONIN 10 MG TABLET PO (21:53)
[2022-12-20] MEDS: clonazePAM 1 MG Tablet PO (21:53)
[2022-12-20] MEDS: traZODone 50 MG Tablet PO (21:53)
[2022-12-21 01:37] VITALS: BP 97/71; PULSE 54; RESP 16; TEMP 36.4; O2SAT 95
[2022-12-21] MEDS: proCHLORPERazine 10 MG/2 ML Vial 5 MG IV ×3 (01:38→10:04)
[2022-12-21 06:45] VITALS: BP 106/67; PULSE 62; RESP 18; TEMP 36.4; O2SAT 96
[2022-12-21] MEDS: Dextrose 5%/0.9% NaCl 1,000 ML 125 ML IV (06:47)
[2022-12-21 07:15] LABS: Absolute Lymphocyte Count 0.78 X10^3/uL (0.83-4.51); Absolute Neutrophil Count 7.1 X10^3/uL (2.0-7.7); Basophil# 0.01 X10^3/uL; Basophil% 0.1 % (0-1); Hematocrit 34.3 % (37-47); Hemoglobin 10.9 g/dL (12.0-15.0); Lymphocyte # 0.78 X10^3/ul (0.83-4.51); Lymphocyte % 9.5 % (19-41); Mean Corp Hgb Conc 31.8 g/dL (32-36); Mean Corpuscular Hgb 28.2 pg (27.0-32.0); Mean Corpuscular Volume 88.9 fL (81-99); Mean Platelet Vol. 10.3 fl (6.2-12.0); Monocyte# 0.21 X10^3/uL; Monocyte% 2.6 % (0-10); NRBC Flagged by Analyzer 0 % (0-5); Neutrophil # 7.13 X10^3/uL (2.7-7.7); Neutrophil % 87.1 % (47-70); Platelet Count 134 K/mm3 (150-450); RBC Distribution Width CV 12.4 % (11.6-14.6); RBC Distribution Width SD 40.5 fl (35.1-43.9); Red Blood Count 3.86 M/mm3 (4.2-5.4); White Blood Count 8.2 K/mm3 (4.4-11.0)
[2022-12-21 07:51] LABS: Anion Gap 7 (5-15); BUN 8 mg/dL (7-18); BUN/Creat Ratio 7.4 RATIO (10-20); Calcium,Total 8.7 mg/dL (8.5-10.1); Chloride 115 mmol/L (98-107); Creatinine, Serum 1.08 mg/dL (0.55-1.02); EST Glomerular Filtration Rate 58 mL/min (>60); Est Glom Filt Rate - Afr Amer 70 mL/min (>60); Estimated Creatinine Clearance 48.59 ml/min; Glucose 244 mg/dL (74-106); Potassium 3.5 mmol/L (3.5-5.1); Sodium Level 143 mmol/L (136-145)
[2022-12-21 08:23] VITALS: BP 120/77; PULSE 57; RESP 18; TEMP 36.4; O2SAT 97
[2022-12-21] MEDS: Heparin Injection (Vial) 5,000 UNIT/ML VIAL 5000 UNIT SC (08:28)
[2022-12-21] MEDS: LINACLOTIDE 72 MCG CAPSULE PO (08:28)
[2022-12-21] MEDS: Aspirin E.C. 81 MG Tablet PO (08:29)
--- NOTE | 2022-12-21 08:35 | NURSING ---
talked with Gayle clinical dry cell sealer requesting input if bolus feedings would be ok as requested by Dr. Dinero. possibly 200cc with 100cc flush 4 times a day, meds and water ok by mouth but all nutrition/supplements such as ensure would be via dobhoff. Aware per Gayle were doing drips d/t gastroparesis. Aware Gayle will reach out to Dr. Cuevas and let us know her recommendations.
--- NOTE | 2022-12-21 09:44 | DCINST_ITS ---
Discharge Instructions Diet Discharge Diet: - (2 feet of Jevity 1.5 with 200 mL boluses 4 times a day followed by 100 mL water flushes. You can drink water and take your pills by mouth but everything else should be through the G-tube) Activity Discharge Activity: Return to Normal Activity Dressing / Incision Call your doctor if you observe: Fever of 101 or Higher, Shortness of breath, Dizziness, Fainting spells, Swelling in the ankles, Chest pain and Increased palpitations (irregular heartbeat) Follow Up Care Test Results: Test results from this visit will be discussed in further detail at your follow- up appointment, if applicable. Discharge Plan Admission Admit Date/Time: 12/18/22 18:24 Attending Provider: Butch Dinero Primary Care Provider: Nikky Pillai Consulting Providers: Silvia Coates ; Friend,Jamie Discharge Orders/Prescriptions Prescriptions: New prednisone 20 mg tablet 40 mg PO DAILY 14 Days Qty: 28 0RF Continued Mirena 20 mcg/24 hours (7 yrs) 52 mg intrauterine device 1 device intrauterine ONCE Rx Instructions: as a single dose aspirin 81 mg tablet,delayed release (DR/EC) 81 mg PO DAILY Vyepti 100 mg/mL solution 100 mg .Route [id number] Rx Instructions: every 3 monthsheadache 100 mg topiramate 200 mg tablet 50 mg PO QHS trazodone 50 mg tablet 50 mg PO QHS pantoprazole [Protonix] 40 mg tablet,delayed release (DR/EC) 40 mg PO DAILY Qty: 30 2RF tizanidine 4 MG capsule 4 mg PO DAILY PRN PRN (Reason: Migraine Symptoms) cholecalciferol (vitamin D3) 1,000 UNIT tablet 1,000 units PO DAILY magnesium oxide 500 MG capsule 500 mg PO BID biotin 10,000 MCG capsule 10,000 mcg PO DAILY promethazine 25 mg Tablet 25 mg PO PRN PRN (Reason: Nausea) omega-3 fatty acids-vitamin E 1,000 mg Capsule 1,000 cap PO DAILY promethazine 25 mg suppository 25 mg MA Q6H PRN (Reason: nausea and vomiting) Qty: 12 0RF Zyrtec 20 mg PO/SL QHS Qulipta 60 mg PO/SL DAILY levomefolate calcium [L-Methylfolate] 15 mg Tablet 15 mg PO DAILY clonazepam 2 mg tablet 2 mg PO QHS Qty: 1 0RF Rx Instructions: Decrease dose to 1 mg at night and supplement the rest with melatonin up to 10 mg nightly to assist with sleep Linzess 72 mcg capsule 72 mcg PO DAILY Qty: 30 3RF famotidine 20 mg tablet 20 mg PO QHS Qty: 30 11RF Zenpep 40,000-126,000- 168,000 unit capsule,delayed release(DR/EC) 3 cap PO TID Qty: 320 11RF Rx Instructions: Take three with meals and 1-2 with snacks Referrals / Follow Up: Nikky Pillai MD [Primary Care Provider] - Within 1 Week Jamie Cuevas DO [Med Staff - Active Staff] - Within 2 Weeks Disposition Disposition (needs filled in before D/C Order can be placed): Home, Self Care
--- NOTE | 2022-12-21 09:50 | DS.PCM_ITS ---
Providers Date of Admission: 12/18/22 Primary Care Physician: Dr. Nikky Pillai MD Consultations 12/18/22 20:59 Consult: Gastroenterology Routine Consulting Provider: Jamie Cuevas Reason for Consult: Intractable nausea/vomiting-patient known to you EMERGENT Consult: No MD Notified: Yes Date Notified: 12/19/22 Time Notified: 06:55 Method of Notification: Text Reason For Visit: INTRACATABLE NAUSEA AND VOMITING Diagnosis Discharge Diagnosis (1) Abdominal pain: Status: Acute Code(s): R10.9 - Unspecified abdominal pain (2) Intractable nausea and vomiting: Status: Acute Code(s): R11.2 - Nausea with vomiting, unspecified (3) Common bile duct dilatation: Status: Acute Code(s): K83.8 - Other specified diseases of biliary tract (4) Elevated serum creatinine: Status: Acute Code(s): R79.89 - Other specified abnormal findings of blood chemistry Medications at Discharge Home Medications cholecalciferol (vitamin D3) 25 mcg (1,000 unit) tablet 1,000 units PO DAILY supplement 12/25/18 tizanidine 4 mg capsule 4 mg PO DAILY PRN PRN Migraine Symptoms 12/25/18 magnesium oxide 500 mg capsule 500 mg PO BID supplement 11/11/19 biotin 10,000 mcg capsule 10,000 mcg PO DAILY hair loss 09/15/20 aspirin 81 mg tablet,delayed release 81 mg PO DAILY blood thinner 02/13/22 eptinezumab-jjmr 100 mg/mL intravenous solution (Vyepti) 100 mg .Route [id number] migraines 02/13/22 levonorgestrel 21 mcg/24 hours (8 yrs) 52 mg intrauterine device (Mirena) 1 device intrauterine ONCE control 02/13/22 omega-3 fatty acids-vitamin E 1,000 mg capsule 1,000 cap PO DAILY supplement 02/18/22 promethazine 25 mg tablet 25 mg PO PRN PRN Nausea 02/18/22 topiramate 200 mg tablet 50 mg PO QHS migraine 05/29/22 trazodone 50 mg tablet 50 mg PO QHS sleep 05/29/22 famotidine 20 mg tablet 20 mg PO QHS #30 tabs 09/30/22 linaclotide 72 mcg capsule (Linzess) 72 mcg PO DAILY #30 caps 09/30/22 coptly-umsqmvvl-mpvieoq 40,000-126,000-168,000 unit capsule, delay rel (Zenpep) 3 cap PO TID #320 caps 10/07/22 pantoprazole 40 mg tablet,delayed release (Protonix) 40 mg PO DAILY #30 tabs 11/15/22 promethazine 25 mg rectal suppository 25 mg NJ Q6H PRN nausea and vomiting #12 ea 12/12/22 Qulipta 60 mg PO/SL DAILY migraines 12/18/22 Zyrtec 20 mg PO/SL QHS allergies 12/18/22 levomefolate calcium 15 mg tablet (L-Methylfolate) 15 mg PO DAILY supplement 12/18/22 clonazepam 2 mg tablet 2 mg PO QHS sleep #1 TAB 12/21/22 prednisone 20 mg tablet 40 mg PO DAILY 2 weeks #28 tabs 12/21/22 Hospital Course Operations None Procedures EGD Summary of Care Provided Minutes Spent on Discharge: 37 Hospital Course: Per HPI: AKIL REYEZ, is a 47 F who presented to the emergency department [facility] on 12/18/2022 with intractable nausea and vomiting.? Patient states that this has been ongoing for about 2 weeks.? She has a history of gastroparesis that was diagnosed about a year ago by Dr. Cuevas.? She has been compliant with her home medications.? She states she is really not been able to eat or drink much for about 8 days now.? She is able to take sips here and there but not drink large volumes.? She also complains of pain in the epigastric region of her abdomen.? Nothing is really helped her thus far.? She denies any fever or chills.? She did take MiraLAX bowel prep recently per Dr. Cuevas's instruction to see if cleaning out her bowels would help with her nausea vomiting and had liquid bowel movements that were brown in nature with this but bowels have been normal otherwise.? I did discuss the case with Dr. 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 Patient does take benzos on a regular basis 2 mg of Klonopin daily with 1 mg as needed.? She has previous cholecystectomy she thinks about 5 years ago. Vital signs at the time of presentation showed temperature of 98, heart rate 89, blood pressure 142/97, respirate 14, oxygen saturations 100% on room air.? CBC was unremarkable.? Her chemistry panel shows normal electrolytes other than some mild hyperchloremia at 108 and a BUN of 22 and a serum creatinine of 1.44.? This appears to be close to where she has been running lately however I am not clear if she is chronically dehydrated because her serum creatinine has been better prior to this.? Glucose was 73.? Her ALT was 141 with a normal AST and her alk phos was 145.? Lipase was 372.? Abdominal ultrasound demonstrated that she was status postcholecystectomy but had a mildly dilated common bile duct at 9 mm. Hospital Course: 1. Abdominal pain with intractable nausea and vomiting secondary to chronic gastroparesis possibly due to benzodiazepine usage?47-year-old female to the hospital with gastroparesis. It was noted that her bile duct was 9 mm which is within the normal range for postcholecystectomy however an MRCP was obtained and was unremarkable. Gastroenterology was consulted placed her on steroids and placed a Dobbhoff in a postpyloric position to allow for tube feeds as well as providing Botox to her pylorus. She tolerated the procedure well and will be placed on Jevity 1.5 at 200 cc boluses every 4 hours followed by 100 cc flushes. We will place her on p.o. prednisone daily for 2 weeks until she can follow-up with gastroenterology as an outpatient. We also did decrease her Klonopin dosage at night and place her on melatonin which did seem to help her sleep a little bit today. She will follow-up with her neurologist as they are trying to transition her off of Klonopin and onto a different medication to help with her sleep. I discussed with her and her the plan for discharge today they expressed understanding of the risks and benefits of going home and would like to go home today. 2. Anxiety, insomnia, migraine headaches are chronic conditions which complicate her. Her conditions were continued where appropriate Physical Exam Narrative General: Alert, Oriented x3, Cooperative, No apparent distress HEENT: Atraumatic, PERRLA, EOMI, Normocephalic, Dobbhoff in place Oral: Moist Mucosa Neck: Supple, No JVD Lungs: Clear to auscultation, Normal air movement, No rhonchi, No wheeze, No rales Cardiovascular: Regular rate, Regular Rhythm, Normal S1, Normal S2, No murmurs Abdomen: Soft, mild tender epigastric, Non-Distended, No Hepato-splenomegaly Extremities: No edema, Capillary Refill Less than 3 Seconds Skin: No rashes, No breakdown Musculoskeletal: No Tenderness to Palpation of Joints or Extremities Neurological: Cranial nerves II-XII grossly intact, Motor Exam 5/5 strength throughout, Sensory exam intact to light touch and pain Psych/Mental Status: Normal Affect, Appropriate Medical Records Data Medical Nutrition Assessment Dietitian: Malnutrition Criteria Met Start: 12/19/22 12:01 Freq: Status: Active Protocol: Document 12/20/22 15:38 [facility] (Rec: 12/20/22 15:38 [facility] [id number]) Nutrition Malnutrition Evidence of Malnutrition Exists Yes Malnutrition (severe): Acute Illness/Injury Evidenced By Suboptimal Energy Intake ( Severe),Weight Loss (Severe) Intake Problem Inadequate Oral Intake Etiology related to altered GI function Signs/Symptoms as evidenced by dobhoff tube insertion and clear liquid diet Status Active Problem Clinical Problem Acute Disease or Injury Related Malnutrition Etiology Severe protein-calorie malnutrition in the context of acute disease related to inadequate oral intake and altered GI function Signs/Symptoms as evidenced by ~12% weight loss and PO meeting less than 50% estimated nutrition needs 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 Flush with 130 ml water flush every 4 hours. TF at goal rate of 45 ml/hr will provide ~ 1620 ervin/h 69 gm pro /1600 ml water/day. Adjust TF pending pt po intake and wt trends. Encouraged to call RD as needed. Weight / BMI Weight Weight: 117 lb 15.157 oz Body Mass Index (BMI) 21.7 ABG / Lab / Microbiology Data Result Diagrams: 12/21/22 06:58 12/21/22 06:58 Laboratory: Laboratory Results - last 24 hr 12/21/22 06:58: WBC 8.2, RBC 3.86 L, Hgb 10.9 L, Hct 34.3 L, MCV 88.9, MCH 28.2, MCHC 31.8 L, RDW Std Deviation 40.5, RDW Coeff of Brian 12.4, Plt Count 134 L, MPV 10.3, Immature Gran % (Auto) 0.700, Neut % (Auto) 87.1 H, Lymph % (Auto) 9.5 L, [place] % (Auto) 2.6, Eos % (Auto) 0.0, Baso % (Auto) 0.1, Absolute Neuts (auto) 7.1, Absolute Lymphs (auto) 0.78 L, Nucleated RBC % 0 12/21/22 06:58: Sodium 143, Potassium 3.5, Chloride 115 H, Carbon Dioxide 21.0, Anion Gap 7, BUN 8, Creatinine 1.08 H, Estim Creat Clear Calc 48.59, Est GFR (MDRD) Af Amer 70, Est GFR (MDRD) Non-Af 58 L, BUN/Creatinine Ratio 7.4 L, Glucose 244 H, Calcium 8.7 D/C Instructions Discharge Diet: - (2 feet of Jevity 1.5 with 200 mL boluses 4 times a day followed by 100 mL water flushes. You can drink water and take your pills by mouth but everything else should be through the G-tube) Call your doctor if you observe: Fever of 101 or Higher, Shortness of breath, Dizziness, Fainting spells, Swelling in the ankles, Chest pain and Increased pa lpitations (irregular heartbeat) Meaningful Use Info Meaningful Use Diagnoses (Choose all that apply): None applicable Discharge Plan Admission Admit Date/Time: 12/18/22 18:24 Attending Provider: Butch Dinero Primary Care Provider: Nikky Pillai Consulting Providers: Silvia Coates ; Friend,Jamie Discharge Orders/Prescriptions Prescriptions: New prednisone 20 mg tablet 40 mg PO DAILY 14 Days Qty: 28 0RF Continued Mirena 20 mcg/24 hours (7 yrs) 52 mg intrauterine device 1 device intrauterine ONCE Rx Instructions: as a single dose aspirin 81 mg tablet,delayed release (DR/EC) 81 mg PO DAILY Vyepti 100 mg/mL solution 100 mg .Route [id number] Rx Instructions: every 3 monthsheadache 100 mg topiramate 200 mg tablet 50 mg PO QHS trazodone 50 mg tablet 50 mg PO QHS pantoprazole [Protonix] 40 mg tablet,delayed release (DR/EC) 40 mg PO DAILY Qty: 30 2RF tizanidine 4 MG capsule 4 mg PO DAILY PRN PRN (Reason: Migraine Symptoms) cholecalciferol (vitamin D3) 1,000 UNIT tablet 1,000 units PO DAILY magnesium oxide 500 MG capsule 500 mg PO BID biotin 10,000 MCG capsule 10,000 mcg PO DAILY promethazine 25 mg Tablet 25 mg PO PRN PRN (Reason: Nausea) omega-3 fatty acids-vitamin E 1,000 mg Capsule 1,000 cap PO DAILY promethazine 25 mg suppository 25 mg [place] Q6H PRN (Reason: nausea and vomiting) Qty: 12 0RF Zyrtec 20 mg PO/SL QHS Qulipta 60 mg PO/SL DAILY levomefolate calcium [L-Methylfolate] 15 mg Tablet 15 mg PO DAILY clonazepam 2 mg tablet 2 mg PO QHS Qty: 1 0RF Rx Instructions: Decrease dose to 1 mg at night and supplement the rest with melatonin up to 10 mg nightly to assist with sleep Linzess 72 mcg capsule 72 mcg PO DAILY Qty: 30 3RF famotidine 20 mg tablet 20 mg PO QHS Qty: 30 11RF Zenpep 40,000-126,000- 168,000 unit capsule,delayed release(DR/EC) 3 cap PO TID Qty: 320 11RF Rx Instructions: Take three with meals and 1-2 with snacks Referrals / Follow Up: Nikky Pillai MD [Primary Care Provider] - Within 1 Week Jamie Cuevas DO [Med Staff - Active Staff] - Within 2 Weeks Disposition Disposition (needs filled in before D/C Order can be placed): Home, Self Care Charges/Coding Visit Charges Inpatient E&M: 14465 Disch Hosp >30min
[2022-12-21] MEDS: 0.9% Saline Lock 10 ML Syringe IV ×2 (10:03→12:28)
[2022-12-21] MEDS: Jevity 1.5. 1,000 ML Bottle 200 ML GT (10:04)
--- NOTE | 2022-12-21 10:46 | CASEMGMT ---
Pt nurse notified that pt is ready for dc today and the feedings have been changed to bolus. Met with foundry superintendant, received updated info for rx. TC to [facility], they do not take pt insurance. TC to [facility], they are not open and neither is [facility]. TC to inpatient pharmacy to see if pt could be sent home enough feedings to get through Friday and they be ordered on Friday with [facility]. Spoke with [facility] pharmacist who states they can charge and will send 2 more bottles to pt room to go home with. YONIS RIVERA in to pt room, pt nurse Maya in room. Pt also present. Pt and comfortable with bolus feedings. They do not want HHC. Nurse states she can send home with supplies and discussed changing tape on nose. Pt is aware this cannot be set up on the weekend but still would like to go home. She is aware that this RN NICOLE will call her Friday morning after setting this up with [facility]. She is agreeable and denies further needs.
--- NOTE | 2022-12-23 08:52 | CASEMGMT ---
Addendum entered by Tarah David 12/23/22 15:32: TC to [facility], spoke with Gayle. She states they received the updated order and that they are awaiting insurance verification and this should be delivered to the pt yet today. Provided contact info in case there are any issues. TC to pt, she is aware of provider used and reason as well as that the name of the feeding had to be changed d/t Jevity 1.5 being out of stock. Pt denies further questions and is aware that they will be reaching out to her. Addendum entered by Tarah David 12/23/22 14:56: TC to [facility], spoke with Janel who states they do not have Jevity 1.5 in stock. TC to c software engineer Shahla who states Isosource 1.5 would be equivalent. Updated rx and faxed to [facility]. Original Note: TC to [facility], they do not supply tube feedings. TC to [facility], spoke with Remedios, she states d/t the national shortage of TF, they are not supplying. She recommended [facility] or [facility]. TC to [facility], they were not open yet. TC to [facility], they are in network with pt insurance. Faxed order, progress notes, labs, demo and EDG report. YONIS CM to follow.
== END 2022-12-21 12:54 | disposition home or self-care (01) | DRG 391 ==
LOC: ED 17:23 → MS3 18:52
PROVIDERS: Internal Medicine Gastroenterology; Admitting Provider Internal Medicine; Emergency Provider Emergency Medicine; PCP Family Medicine; Visit Provider Family Medicine
PROC: 0DJ08ZZ Inspection of Upper Intestinal Tract, Via Natural or Artificial Opening Endoscopic (ICD-10-PCS; CPT 43235; principal; 2022-12-20 07:25)
DX: K31.84 Gastroparesis (principal); E43 Unspecified severe protein-calorie malnutrition; G43.709 Chronic migraine without aura, not intractable, without status migrainosus; F41.9 Anxiety disorder, unspecified; K29.60 Other gastritis without bleeding; T42.4X5A Adverse effect of benzodiazepines, initial encounter; K31.1 Adult hypertrophic pyloric stenosis; G47.00 Insomnia, unspecified; Z68.21 Body mass index [BMI] 21.0-21.9, adult; Z90.49 Acquired absence of other specified parts of digestive tract; Z79.01 Long term (current) use of anticoagulants; Z79.82 Long term (current) use of aspirin; Z79.899 Other long term (current) drug therapy; Z79.891 Long term (current) use of opiate analgesic
CPT/HCPCS: 36415; 36591; 74018; 74181; 76705; 80048; 80053; 82962; 83690; 83735; 84100; 84443; 85025; 85730; 94668; 97802; 97803; 99252; 99283; J7030; J7050; J7120; A4216; G0463; J0585; J2405; J3490

== ENCOUNTER → 2022-12-18 | Outpatient (CLI) | payer OTHER, SELFPAY ==
--- NOTE | 2022-12-18 10:06 | RAD_ITS ---
STUDY: X-RAY - ABDOMEN/PELVIS REASON FOR EXAM: Female, 47 years old. Abdominal pain. TECHNIQUE: Single AP view of the abdomen / pelvis on 2 images. COMPARISON: None. FINDINGS: Normal visualized lung bases. Mild distention of both large and small bowel with air seen to the rectosigmoid. No disproportionate dilatation. There is no demonstrated free abdominal air. The visualized liver, spleen and kidneys are grossly normal in size and morphology. IUD and postsurgical changes in the mid pelvis. Clip projected over the right upper quadrant, presumably from cholecystectomy. Normal visualized osseous structures. RAD/Abdomen Single View IMPRESSION: Mild gaseous distention of both large and small bowel without disproportionate dilatation. No acute finding. Electronically Signed: Chandler Hunter, at 12:48 EST ,
== END | disposition home or self-care (01) ==
LOC: LAB 09:44 → RAD 09:50
PROVIDERS: PCP Family Medicine; Referring Provider Internal Medicine Gastroenterology; Visit Provider Internal Medicine Gastroenterology
DX: R10.9 Unspecified abdominal pain (principal)
CPT/HCPCS: 74018

== ENCOUNTER → 2023-06-03 | Outpatient (CLI) | payer OTHER, SELFPAY ==
--- NOTE | 2023-06-03 07:31 | NM_ITS ---
CLINICAL: 48-year-old female with history of gastroparesis. SOLID PHASE 99m Tc SULFUR COLLOID GASTRIC EMPTYING STUDY COMPARISON: Previous semisolid phase gastric emptying study dated 02/07/2022 FINDINGS: The patient was administered 1.0 mCi of 99m Tc sulfur colloid mixed with egg and consumed per os. Image acquisitions in the anterior-posterior projections were obtained for 240 minutes following meal consumption. There is prompt visualization of the stomach. There is no gastroesophageal reflux identified. First order kinetics are maintained throughout the duration of the acquisitions. The T ? raw data emptying was calculated to be 108.36 minutes, (Normal 65-110 minutes). 93 % emptying and 7.0 % retention are defined at 229 minutes post meal ingestion. NM/Gastric Emptying Study IMPRESSION: 1. NORMAL 99m Tc sulfur colloid solid phase gastric emptying imaging examination. A. There is normal and preserved solid phase gastric emptying compared to normal controls with maintained first order kinetics throughout all components of the examination. (Darshan et al, Gastroenterology 77: 75, 1979 Renetta et al, Semin Nucl Med 12: 116, 1981 Paulo et al, SN Procedure Guidelines Adult Solid Meal Gastric Emptying Study 3.0 [email or web address]). B. Greater than 90% emptying of the initial gastric contents at 4 hours post dose is consistent with normal solid phase gastric emptying which correlates with the results of the T ? emptying calculation. C. Compared to the examination dated 02/07/2022, there is current upper limits of normal, solid phase gastric emptying as defined above. Electronically Signed: Nghia Syed, at 22:08 EDT ,
== END | disposition home or self-care (01) ==
LOC: NM 07:29
PROVIDERS: PCP Family Medicine; Referring Provider Internal Medicine Gastroenterology; Visit Provider Internal Medicine Gastroenterology
DX: K31.84 Gastroparesis (principal)
CPT/HCPCS: 78264; A9541

== ENCOUNTER → 2023-08-05 | Outpatient (CLI) | payer OTHER, SELFPAY ==
--- NOTE | 2023-08-05 10:32 | RAD_ITS ---
INDICATION: cough EXAMINATION/TECHNIQUE: X-RAY - XR Chest 2 Views COMPARISON: December 19, 2022 FINDINGS: LINES/DEVICES: There is a right-sided central venous catheter in place with its tip terminating within the expected region of the superior vena cava. Within the right upper/mid lung and there are two nodular and ill-defined round opacities. LUNGS: No consolidation, edema or effusion. No pneumothorax. MEDIASTINUM AND CARDIOVASCULAR STRUCTURES: Cardiac silhouette not enlarged. Central airways and mediastinal contour are unremarkable. BONES AND SOFT TISSUES: Unremarkable. RAD/Chest PA and Lateral IMPRESSION: Nodular ill-defined opacities within the right upper lung concerning for underlying pulmonary nodules, recommend chest CT for further characterization. Electronically Signed: Amy Shaw MD at 10:55 EDT ,
== END | disposition home or self-care (01) ==
LOC: MTRAD 10:29
PROVIDERS: PCP Family Medicine; Referring Provider Physician Assistant; Visit Provider Physician Assistant
DX: R05.9 Cough, unspecified (principal)
CPT/HCPCS: 71046

== ENCOUNTER 2024-04-07 06:01 | Day surgery (SDC) | payer OTHER, SELFPAY ==
[2024-04-07] VITALS (7 sets, daily range): BP systolic 86–118; BP diastolic 49–81; PULSE 57–69; RESP 16; TEMP 36.1–36.8; O2SAT 99–100; BMI 23.2
--- NOTE | 2024-04-07 06:24 | PRE.ANES_ITS ---
ASA Classification* ASA Classification ASA Classification: 3 Assessment & Plan Anesthesia* Anesthesia Assessment Anesthesia Assessment: Discussed sedation and/or anesthesia options, risks, benefits, and alternatives with patient/parents/legal guardian/POA. Questions invited. The patient/parents/legal guardian/POA seems to understand and agrees to proceed with anesthesia plan. Reviewed the physical assessment, medical history, allergy history and patient home medications list prior to surgery/procedure/anesthetic and documented any changes. Performed airway and anesthesia risk assessments. 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 When Was Last Pacemaker Check QUESTION #4 FULL TEXT: You/Your Family Experience fever (hyperthermia) with Anesthesia Last Oral Intake Last Oral intake: Last Oral Intake NPO since Meds taken in AM with sips of water? Meds patient instructed to take am of surgery PONV PONV - biomedical engineering internship: PONV - biomedical engineering internship Female Yes 04/02/24 15:46 HX of Motion Sickness No 04/02/24 15:46 HX of N/V After Surgery No 04/02/24 15:46 Non-Smoker Yes 04/02/24 15:46 Duration of Surgery greater No 04/02/24 15:46 than 60 minutes Number of Risk Factors 2 04/02/24 15:46 PONV Score Moderate Risk 04/02/24 15:46 Height & Weight Height & Weight: Anesthesia: Height & Weight Height 5 ft 1 in 01/13/23 14:28 Respiratory Assessment Respiratory Assessment - biomedical engineering internship: Respiratory Tract Infection Hx - biomedical engineering internship Hx Respiratory Tract Infection No 04/02/24 15:46 STOP Sleep Apnea STOP Sleep Apnea - biomedical engineering internship: STOP Sleep Apnea - biomedical engineering internship Hx Hypertension No 04/02/24 15:46 Hx Sleep Apnea No 04/02/24 15:46 CPAP No 04/02/24 15:46 BIPAP No 04/02/24 15:46 Do you snore loudly (louder No 04/02/24 15:46 than talking or can be heard Do you often feel tired/ No 04/02/24 15:46 fatigued/ sleepy during daytime? Has anyone observed you stop No 04/02/24 15:46 breathing during sleep? STOP Results Negative 04/02/24 15:46 QUESTION #5 FULL TEXT : Do you snore loudly (louder than talking or can be heard through closed doors)? 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 Specify any problems Hx of Preganancy in last 3 No 04/02/24 15:46 Months Nurse Filling Out Transfusion [facility] 04/02/24 15:46 & Questions: Date: 04/02/24 04/02/24 15:46 Time: 15:46 04/02/24 15:46 Patient unable to answer at this time (ie. confused, unrespo /Reproduction History /Reproductive History - biomedical engineering internship: /Reproductive Hx- biomedical engineering internship Hx Now No 04/02/24 15:46 Gestational Age (in weeks): EDC: Hx Hx Para Hx Section SAB No 04/02/24 15:46 Anesthesia Focused Assessment* Airway Assessment Mouth opens: >3 cm Mallampati Score: II Focused Labs Anesthesia Preop lab: CBC WBC 8.2 K/mm3 (4.4-11.0) 12/21/22 06:58 RBC 3.86 M/mm3 (4.2-5.4) L 12/21/22 06:58 Hgb 10.9 g/dL (12.0-15.0) L 12/21/22 06:58 Hct 34.3 % (37-47) L 12/21/22 06:58 Plt Count 134 K/mm3 (150-450) L 12/21/22 06:58 CHEMISTRY Potassium 3.5 mmol/L (3.5-5.1) 12/21/22 06:58 Sodium 143 mmol/L (136-145) 12/21/22 06:58 Magnesium 2.4 mg/dL (1.6-2.6) 12/19/22 05:35 Phosphorus 2.9 mg/dL (2.5-4.9) 12/19/22 05:35 BUN 8 mg/dL (7-18) 12/21/22 06:58 Creatinine 1.08 mg/dL (0.55-1.02) H 12/21/22 06:58 Glucose 244 mg/dL (74-106) H 12/21/22 06:58 TSH 6.37 uIU/mL (0.358-3.74) H 12/19/22 05:35 COAG PT 12.4 SECONDS (11.7-14.9) 09/21/20 11:45 Urine Test Negative Negative 06/15/20 09:40 Review of Systems (Anesthesia) ROS Narrative System reviewed and no additional complaints, except as documented. [facility], LAT[facility] Medical History History of Clostridium difficile infection Anxiety Difficulty swallowing Port-A-Cath in place Right upper lobe pulmonary nodule Acute maxillary sinusitis, unspecified Contact with or exposure to other viral diseases URI (upper respiratory infection) Headache, migraine Alcohol use Easy bruising Blackout Syncope Non-smoker History of echocardiogram History of Holter monitoring Cardiology follow-up encounter Anxiety Insomnia Hemiplegic migraine Bradycardia Mycobacterial pneumonia DUB (dysfunctional uterine bleeding) Migraines History of kidney stones Choledocholithiasis Cholelithiasis Home Medications ?Medication ?Instructions ?Recorded ?Last Taken ?Type cholecalciferol (vitamin D3) 25 1,000 units PO DAILY supplement 12/25/18 12/18/22 History mcg (1,000 unit) tablet tizanidine 4 mg capsule 4 mg PO DAILY PRN PRN Migraine 12/25/18 02/20/22 History Symptoms magnesium oxide 500 mg capsule 500 mg PO BID supplement 11/11/19 12/18/22 History aspirin 81 mg tablet,delayed 81 mg PO DAILY blood thinner 02/13/22 12/18/22 History release eptinezumab-jjmr 100 mg/mL 100 mg .Route [id number] migraines 02/13/22 09/25/22 History intravenous solution (Vyepti) levonorgestrel 21 mcg/24 hr (up to 1 device intrauterine ONCE 02/13/22 02/20/22 History 8 years) 52 mg intrauterine device control (Mirena) omega-3 fatty acids-vitamin E 1,000 cap PO DAILY supplement 02/18/22 12/18/22 History 1,000 mg capsule promethazine 25 mg tablet 25 mg PO PRN PRN Nausea 02/18/22 02/20/22 History topiramate 200 mg tablet 50 mg PO QHS migraine 05/29/22 12/17/22 History Qulipta 60 mg PO/SL DAILY migraines 12/18/22 12/18/22 History Zyrtec 20 mg PO/SL QHS allergies 12/18/22 12/17/22 History levomefolate calcium 15 mg tablet 15 mg PO DAILY supplement 12/18/22 12/18/22 History (L-Methylfolate) suvorexant 20 mg tablet (Belsomra) 20 mg PO HS 01/13/23 Unknown History famotidine 20 mg tablet 20 mg PO QHS #30 tabs 10/07/23 Unknown Rx linaclotide 145 mcg capsule 145 mcg PO DAILY #30 caps 01/27/24 Unknown Rx (Linzess) pantoprazole 40 mg tablet,delayed 40 mg PO QAM 03/16/24 Unknown History release (Protonix) Allergy/AdvReac Type Severity Reaction Status Date / Time gabapentin AdvReac Intermediate Swelling Verified 04/02/24 15:45 erythromycin base AdvReac Nausea Verified 04/02/24 15:45 (Erythromycin Base) hydrocodone bitartrate (From AdvReac Other Verified 04/02/24 15:45 Vicodin) Family History Father MVP (mitral valve prolapse) Surgical History History of arthroscopy of shoulder History of cystoscopy History of esophagogastroduodenoscopy (EGD) History of lithotripsy H/O unilateral oophorectomy History of bilateral salpingectomy History of cholecystectomy Social History household members: spouse housing: house Smoking Status: Never smoker alcohol intake: never substance use type: does not use
[2024-04-07] MEDS: Lactated Ringers 1,000 ML 15 ML IV (06:47)
--- NOTE | 2024-04-07 07:29 | HP.PCM_ITS ---
History and Physical Date of Admission: 04/07/24 AKIL REYEZ, is a 48 F who presents to the office today for follow up. PMH migraines managed with Topamax, ubrevly and viepti infusions. PSH hysteroscopy 06.15.20, cholecystectomy 10.20.15, fissurectomy, facial nerve surgery for hemiplegic migraines, port placement. CT abd/pel 08.29.20 finding a cyst of the left ovary. Imaging reviewed and stomach noted to be enlarged with food contents. *BGI established 12.24.21 with referral from PCP for evaluation of recurrent and persistent hiccups. Since 2018 she has been getting hiccups 6-7 times a day with a feeling of illness. ? Gastric emptying study 02.07.22 finding markedly delayed gastric emptying. ? 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 Protonix 40mg Taper. OV 03.07.22 without repeat episodes of hiccups. Biochemical workup ESR, LDH, CRP, TSH, T3, T4, celiac, PEP, FERNANDA, globulin, GAME, ROB, ARNEL comp without remarkable results. OV 05.29.22 Start linzess 72mcg OV 08.21.22 She has periods of time that are better and times that are worse. 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 With Linzess 72mcg she has been having varying BM from loose stools to constipation (no BM or very small BM and then large movement). When she has a BM during constipation periods she will have very small movements and hard stools. Purchased a book regarding living with gastroparesis: she is eating liquids, pureed foods mostly. When she eats meals she eats chicken. Has also changed diet to gluten free. Continue linzess. Start protnix qam, Zyrtec/famotidine qhs [facility] ED 12.12.22 with abdominal pain for 3 days with N/V and lack of BM 4-5 days. Biochemical workup and imaging without concern for obstruction. Phenergan suppositories provided and discharged. ? Biochemical CBC, CMP, lactic acid, lipase without pertinent abnormality. ? CT abd/pel moderately abundant stool in left colon with fluid distention of right colon. Contact 12.13.22 with abdominal pain and lack of BM for several days, recommend enemas. Performed over the weekend with contact 12.16.22 with continued abdominal pain, recommend MiraLAX bowel prep. Performed with brown stool with hard stool particles emitting when presenting to office 3.11.11. Recommend KUB; she chose to present to ED due to fatigue. ? KUB 3.11.11 mild distention of both large and small bowel with air in RS without disproportionate dilation. [facility] hospitalization 3.11.11-3.02.09 with abdominal pain and concern for dehydration. GI consulted with concern of benzodiazepine use causing gastroparesis. She was discharged with a Dobbhoff tube in postpyloric location for tube feeding. ? EGD 3.01.09 bile gastritis; gastric stenosis of pylorus, Botox injection; Dobbhoff tube placed. OV 3.. reports she is feeling much better than previously. Sore throat r/t Dobbhoff tube placement. She does feel fatigued, is not sleeping the greatest r/t the tube. OV 02.13. she was feeling great until approximately the last two weeks. She was having BM up to 3 times a day and had not stomach discomfort/difficulty. She has not been having BM QOD and stomach upset/bloating ? GET, four hour 8 108.36 minutes (65-110) Contact 06.05.23 with GET results. Educated regarding stenosis, constipation and reduction of benzodiazepine use can cause improvement. Continues with Linjosrs OV 12. she has been having varying symptoms with some days/weeks where she has no symptoms and other days/weeks where she will have epigastric pain with dysphagia and variation between loose stools/constipation. Benzodiazepine has s topped. Largest concern today is scratchy throat with choking. OV 5..24 Pt reports that she has occasional epigastric pain, unable to identify a trigger. Pt reports that she will occasionally have trouble swallowing her medications and feels like things don't settle well. Pt continues with famotidine, linzess, and pantoprazole. ROS Const Constitutional: Positive for headache(s) and weight change (weight loss and weight gain ); No fatigue or fever(s) ENT ENT: Positive for headache(s) and difficulty swallowing Gastro GI: Positive for abdominal pain, bloating, heartburn, difficulty swallowing, excessive flatus and nausea/dyspepsia; No belching, change in bowel habits, change in stool character, coffee ground emesis, constipation, cramping, diarrhea, feeling full early, incontinent of stools, Vomiting blood/hematemesis, Blood in stool, loose stools, Black,tarry stools, pain with swallowing, vomiting or other Musc Musculoskeletal: No joint pain Skin Skin: No yellowing of the eye or itchy eyes Neuro Neurology: Positive for headache(s) Psych Psychiatric: Positive for anxiety and No depression Endo Endocrine: Positive for weight change (weight loss and weight gain ); No fatigue Aller/Imm Allergy/Immunologic: No itchy eyes Chu/Lymp Hematologic/Lymphatic: Positive for easy bruising; No easy bleeding Exam Const General: cooperative, healthy appearing and no acute distress Nutritional Appearance: average body habitus Orientation: alert, awake and oriented x3 HENMT Head: normal to inspection Ears: hearing grossly normal bilaterally, external ears normal, TM's normal bilaterally and EAC's normal Nose: external nose normal, nares normal, septum normal and no nasal discharge Face and sinus: normal facial exam, face symmetric and sinus tenderness maxillary (right, with fullness to palpation same) Mouth: oral mucosae normal, lip normal, tongue normal and oropharynx normal Throat: posterior oropharynx normal, tonsils normal, uvula midline and postnasal drainage (Scant purulent with hoarse voice appreciated) Eyes General: appearance normal, both eyes and all related structures Neck Neck: normal visual inspection, full ROM, no lymphadenopathy, no meningeal signs and supple Neck mass: No Thyroid: thyroid normal Lymphatic: no lymphadenopathy noted Chest Chest palpation & inspection: normal inspection of the chest Resp Effort & Inspection: normal respiratory effort, able to speak in complete sentences and cough Quality of cough: wet (Nonproductive in office today) Auscultation: Bilateral: Clear to Auscultation Cardio Palpation: normal PMI Rate: regular rate Rhythm: regular rhythm Heart Sounds: S1 normal, S2 normal, no gallops, no murmurs and no rubs Pulses: radial pulses present GI Inspection: normal to inspection Palpation: soft and no hepatosplenomegaly Skin General: no rashes or lesions noted Neuro General: patient alert, patient awake and patient oriented x3 Cognition: normal cognition Speech: speech normal Psych Appearance: grossly normal Mental Status: mental status grossly normal Mood: congruent mood Affect: normal affect Speech and Movement: speech and movement normal Attitude: cooperative Assessment and Plan Assessment and Plan (1) Gastroparesis: Status: Chronic (2) Constipation: Status: Chronic Qualifiers: Constipation type: slow transit constipation Qualified Code(s): K59.01 - Slow transit constipation Plan: Her constipation is a lot better with the Linzess therapy. However because she is having more constipation, we will have her take 2 pills of Linzess in the morning for the next 2 weeks. (3) Laryngitis: Status: Chronic Plan: Her laryngitis is a lot better but I think if she takes medicines as prescribed this will really help her. (4) Gastroparesis: Status: Chronic Plan: We will schedule her for an upper endoscopy Botox injections to the pyloric sphincter. We will have her continue diet, PPI therapy and 64 ounces of water a day. (5) Hiccups: Status: Chronic Plan: She is taking the pantoprazole at night and it is not helping her hiccups. I will have her switch to pantoprazole to the a.m. and add Zyrtec and famotidine at night. I have examined the patient and the H&P has been reviewed. There are no clinical changes since date of exam.
[2024-04-07] MEDS: Botulinum Toxin A 100 Units Vial IJ (07:36)
[2024-04-07] MEDS: 0.9% Normal Saline (Pres. free 10 ML Vial (07:37)
--- NOTE | 2024-04-07 07:45 | PCM.POST.ANE ---
Anesthesia: Postop Eval I Current Vital Signs Temperature: 97 F Pulse Rate: 59 Blood Pressure: 91/49 Respiratory Rate: 16 Pulse Ox: 99 Oxygen Delivery Method: Room Air Assessment Airway patent: Yes Spontaneous unlabored respirations: Yes Mental status: Awake and Calm nausea: No Vomiting: No Anesthesia Complication: No Fluid Hydration Crystalloid volume administer (ml): 400 Total IV fluid infused: 400 Progress Note Anesthesia document: Postop Eval 1 completed: Yes
--- NOTE | 2024-04-07 07:50 | OP.CCLET_ITS ---
04/07/2024 Nikky Pillai [address] [place] [address] Re : Upper GI endoscopy procedure for Stephanie Michelle Dear Dr. Pillai This procedure was performed on Sunday, April 07, 2024. My impressions and recommendations are as follows: Impressions : - Normal esophagus. - Chronic gastritis. Injected with botulinum toxin. - No gross lesions in the first portion of the duodenum. - No specimens collected. Recommendations : - Discharge patient to home. - Resume previous diet. - Continue present medications. My findings are described in the full procedure note, which is enclosed. If I can be of further assistance, please feel free to contact me at . Sincerely, Jamie Cuevas, 04/07/2024 7:50:27 AM This report has been signed electronically.
--- NOTE | 2024-04-07 07:50 | OP.EGD_ITS ---
Patient Name: Stephanie Michelle Procedure Date: 04/07/2024 7:17 AM Date of : 1975 Age: 48 Procedure: Upper GI endoscopy Indications: Epigastric abdominal pain, Functional Dyspepsia, Failure to respond to medical treatment Providers: Jamie Cuevas DO Referring MD: Nikky Pillai Medicines: Monitored Anesthesia Care Patient Profile: This is a 48 year old female. Refer to note in patient chart for documentation of history and physical. Patient has symptoms of chronic abdominal distention, chronic epigastric abdominal pain and chronic dyspepsia. Complications: No immediate complications. Procedure: Pre-Anesthesia Assessment: - Prior to the procedure, a History and Physical was performed, and patient medications and allergies were reviewed. The patient is competent. The risks and benefits of the procedure and the sedation options and risks were discussed with the patient. All questions were answered and informed consent was obtained. Patient identification and proposed procedure were verified by the physician in the pre-procedure area. Mental Status Examination: alert and oriented. Airway Examination: normal oropharyngeal airway and neck mobility. Respiratory Examination: clear to auscultation. CV Examination: normal. Prophylactic Antibiotics: The patient does not require prophylactic antibiotics. Prior Anticoagulants: The patient has taken no anticoagulant or antiplatelet agents. After reviewing the risks and benefits, the patient was deemed in satisfactory condition to undergo the procedure. The anesthesia plan was to use minimal sedation / analgesia (anxiolysis). Immediately prior to administration of medications, the patient was re-assessed for adequacy to receive sedatives. The heart rate, respiratory rate, oxygen saturations, blood pressure, adequacy of pulmonary ventilation, and response to care were monitored throughout the procedure. The physical status of the patient was re-assessed after the procedure. After obtaining informed consent, the endoscope was passed under direct vision. Throughout the procedure, the patient's blood pressure, pulse, and oxygen saturations were monitored continuously. The Endoscope was introduced through the mouth, and advanced to the second part of duodenum. The upper GI endoscopy was accomplished without difficulty. The patient tolerated the procedure well. Scope In: 7:33:52 AM Scope Out: 7:40:18 AM Total Procedure Duration Time 0 hours 6 minutes 26 seconds Findings: The examined esophagus was normal. Patchy mild inflammation characterized by congestion (edema) was found in the gastric antrum. Area was successfully injected with 100 units botulinum toxin. Estimated blood loss was minimal. No gross lesions were noted in the first portion of the duodenum. Impression: - Normal esophagus. - Chronic gastritis. Injected with botulinum toxin. - No gross lesions in the first portion of the duodenum. - No specimens collected. Recommendation: - Discharge patient to home. - Resume previous diet. - Continue present medications. Procedure Code(s): --- Professional --- 30285, Esophagogastroduodenoscopy, flexible, transoral; with directed submucosal injection(s), any substance CPT copyright 2021 [employer]. All rights reserved. The codes documented in this report are preliminary and upon border patrol officer review may be revised to meet current compliance requirements. Jamie Cuevas DO 04/07/2024 7:50:27 AM This report has been signed electronically. Number of Addenda: 0 Note Initiated On: 04/07/2024 7:17 AM
--- NOTE | 2024-04-07 08:22 | PCM.POSTANE2 ---
Anesthesia Postop Eval I Sum Postop Eval Completion status Anesthesia document: Postop Eval 1 completed: Yes Anesthesia Postop Eval I Summary Anesthesia Postop Eval I Summary: Anesthesia Postop Eval I: Assessment Summary Airway patent Yes 04/07/24 07:47 [email or web address] Spontaneous unlabored Yes 04/07/24 07:47 [email or web address] respirations Mental status Awake,Calm 04/07/24 07:47 [email or web address] nausea No 04/07/24 07:47 [email or web address] Vomiting No 04/07/24 07:47 [email or web address] Anesthesia Postop Eval I: Fluid Summary Crystalloid volume administer 400 04/07/24 07:47 [email or web address] (ml) Colloids volume administered ( ml) Blood Product volume administered (ml) Total IV fluid infused 400 04/07/24 07:47 [email or web address] Anesthesia Postop Eval I: Summary Notes Anesthesia Complication No 04/07/24 07:47 [email or web address] Anesthesia Complication Comment: Post-operative progress note Anesthesia: Postop Eval II Evaluation Mental status: Awake and Calm Pain Level: 0 nausea: No Vomiting: No Complications Anesthesia Complication: No
== END 2024-04-07 08:20 | disposition home or self-care (01) ==
LOC: EN 06:01 → AC 06:02
PROVIDERS: PCP Family Medicine; Referring Provider Family Medicine; Visit Provider Internal Medicine Gastroenterology
PROC: 0DJ08ZZ Inspection of Upper Intestinal Tract, Via Natural or Artificial Opening Endoscopic (ICD-10-PCS; CPT 43235; principal; 2024-04-07 07:10)
DX: K29.50 Unspecified chronic gastritis without bleeding (principal); K31.84 Gastroparesis; K59.01 Slow transit constipation; J04.0 Acute laryngitis; Z79.899 Other long term (current) drug therapy; Z79.82 Long term (current) use of aspirin; G43.909 Migraine, unspecified, not intractable, without status migrainosus
CPT/HCPCS: 43236; J7120; A4216; J0585; J2405; J3490

== ENCOUNTER 2025-04-17 22:57 | Emergency (ER) | payer OTHER, SELFPAY ==
[2025-04-17 22:58] VITALS: BP 131/86; PULSE 100; RESP 18; TEMP 36.4; O2SAT 99; BMI 22.5
--- NOTE | 2025-04-17 23:20 | ED.VIS.LOWEX ---
HPI History of Present Illness Chief Complaint: Lower Extremity Injury Detail of Chief Complaint: Left foot and ankle injury Informant: patient Narrative Narrative: Patient presents with left foot and ankle injury that occurred about 2:30 PM today. Patient states that she was carrying some ice and stepped into a hole injuring her foot and ankle. Able to bear weight but having pain. [facility] Medical History History of Clostridium difficile infection Anxiety Difficulty swallowing Port-A-Cath in place Right upper lobe pulmonary nodule Acute maxillary sinusitis, unspecified Contact with or exposure to other viral diseases URI (upper respiratory infection) Headache, migraine Alcohol use Easy bruising Blackout Syncope Non-smoker History of echocardiogram History of Holter monitoring Cardiology follow-up encounter Anxiety Insomnia Hemiplegic migraine Bradycardia Mycobacterial pneumonia DUB (dysfunctional uterine bleeding) Migraines History of kidney stones Choledocholithiasis Cholelithiasis Home Medications ?Medication ?Instructions ?Recorded ?Last Taken ?Type cholecalciferol (vitamin D3) 25 1,000 units PO DAILY supplement 12/25/18 12/18/22 History mcg (1,000 unit) tablet tizanidine 4 mg capsule 4 mg PO DAILY PRN PRN Migraine 12/25/18 02/20/22 History Symptoms magnesium oxide 500 mg capsule 500 mg PO BID supplement 11/11/19 12/18/22 History aspirin 81 mg tablet,delayed 81 mg PO DAILY blood thinner 02/13/22 04/04/24 History release eptinezumab-jjmr 100 mg/mL 100 mg .Route [id number] migraines 02/13/22 09/25/22 History intravenous solution (Vyepti) levonorgestrel (Mirena) 1 device intrauterine ONCE 02/13/22 02/20/22 History control omega-3 fatty acids-vitamin E 1,000 cap PO DAILY supplement 02/18/22 12/18/22 History 1,000 mg capsule promethazine 25 mg tablet 25 mg PO PRN PRN Nausea 02/18/22 02/20/22 History topiramate 200 mg tablet 50 mg PO QHS migraine 05/29/22 12/17/22 History Qulipta 60 mg PO/SL DAILY migraines 12/18/22 12/18/22 History Zyrtec 20 mg PO/SL QHS allergies 12/18/22 12/17/22 History levomefolate calcium 15 mg tablet 15 mg PO DAILY supplement 12/18/22 12/18/22 History (L-Methylfolate) suvorexant 20 mg tablet (Belsomra) 20 mg PO HS 01/13/23 Unknown History famotidine 20 mg tablet 20 mg PO QHS #30 tabs 10/01/24 Unknown Rx methylprednisolone 4 mg tablets in 4 mg PO QDAY #21 tabs 01/20/25 Unknown Rx a dose pack (Medrol (Taiwo)) linaclotide 145 mcg capsule 145 mcg PO DAILY #30 caps 03/08/25 Unknown Rx (Linzess) pantoprazole 40 mg tablet,delayed 40 mg PO QDAY #90 tabs 03/08/25 Unknown Rx release Allergy/AdvReac Type Severity Reaction Status Date / Time gabapentin AdvReac Intermediate Swelling Verified 04/17/25 22:58 erythromycin base AdvReac Nausea Verified 04/17/25 22:58 (Erythromycin Base) hydrocodone bitartrate (From AdvReac Other Verified 04/17/25 22:58 Vicodin) Family History Father MVP (mitral valve prolapse) Surgical History History of arthroscopy of shoulder History of cystoscopy History of esophagogastroduodenoscopy (EGD) History of lithotripsy H/O unilateral oophorectomy History of bilateral salpingectomy History of cholecystectomy Social History household members: spouse housing: house Smoking Status: Never smoker alcohol intake: never substance use type: does not use ROS ROS ED Review of Systems ROS Unobtainable: other Constitutional Constitutional ED: Reports lethargy; Denies chills, fever(s), sweats or weight loss Eyes Eyes: Denies blurry vision, change in vision or diplopia ENT ENT ED: Denies rhinorrhea or sore throat Cardiovascular Cardiovascular: Denies chest pain, orthopnea or racing heartbeat Respiratory/Chest Respiratory/Chest: Denies cough, dyspnea, dyspnea on exertion, orthopnea or sputum Gastrointestinal Gastrointestinal: Denies abdominal pain, diarrhea, nausea or vomiting Genitourinary Genitourinary ED: Denies dysuria, hematuria or urinary frequency Musculoskeletal Musculoskeletal: Reports other Details: Left foot and ankle pain ; Denies arthralgias, back pain, myalgias or neck pain Integumentary Denies abscess, Abrasions or rash Neurologic Neurologic: Denies headache(s) or weakness Psychiatric Psychiatric: Denies anxiety, depression or suicidal thoughts Endocrine Endocrinology: Denies polydipsia, polyphagia or polyuria Hematologic/Lymphatic Hematologic/Lymphatic: Denies easy bleeding, easy bruising or lymphadenopathy Allergic/Immunologic Allergic/Immunologic ED: Denies mouth swelling, tongue swelling or urticaria EXAM Physical Exam Const Vital Signs: 04/17/25 22:58 Temperature 97.5 F L Temperature Source Temporal Pulse Rate 100 Respiratory Rate 18 Blood Pressure 131/86 H Blood Pressure Mean 101 Pulse Ox 99 Oxygen Delivery Method Room Air Positive well nourished and well developed General Appearance ED: well developed and NAD HEENT Reports TM's clear and moist mucous membranes normocephalic and atraumatic; Negative for trauma or tenderness Tympanic Membrane ED: Yes TM's clear Eyes PERRL and EOMs intact bilaterally General Eye ED: Negative for pale conjunctiva or scleral icterus Neck no lymphadenopathy, supple and no JVD General: Negative for tenderness Chest Wall inspection of chest normal and palpation of chest normal Chest: Negative for tenderness Resp normal respiratory effort and clear to auscultation bilaterally Effort and Inspection: Negative for respiratory distress or pain with movement Auscultation: Negative for rhonchi, wheezes or diminished lung sounds Cardio regular rate, regular rhythm, S1 normal heart sound, S2 normal heart sound and no murmurs Peripheral Pulses: pulses 2+ throughout GI normal to inspection, nondistended, normoactive bowel sounds, soft to palpation, non-tender, non-distended and no masses Back/Spine no CVA tenderness and no thoracic nor lumbar tenderness Extremity Extremity Narrative: Left ankle-patient has some soft tissue swelling and ecchymosis to the lateral malleolus with some mild tenderness palpation. No pain at the proximal fibular head. No pain at the base of the fifth metatarsal. Left foot-patient has some tenderness palpation over the ankle mortise and anterior tarsal bones. Some ecchymosis and bruising noted. Mild soft tissue swelling General Extremety ED: Negative for edema General Extremity: Negative for edema Neuro oriented x3, CN's II-XII intact bilaterally, no sensory deficits noted and gait normal Sensorium / Orientation: awake, alert, oriented to person, oriented to place and oriented to time Motor Exam: strength 5/5 throughout and strength abnormal Psych mental status grossly normal Skin no rashes or lesions noted and no wounds MDM MDM MDM Narrative Medical decision making narrative: Patient presents with a injury to the left ankle after stepping in a hole. Three-view x-rays of the right ankle obtained showed a nondisplaced fracture at the tip of the lateral malleolus. X-rays of the foot were unremarkable. Patient will be placed in a walking boot and given crutches for comfort. She does not want a thing for pain for home. She is instructed to ice and elevate the extremity. She is to follow-up with orthopedics within the next 3 to 5 days. Radiography Diagnostic Testing: Clinical Impression(s) from Imaging Studies Ankle X-Ray 04/17/25 23:30 IMPRESSION: Question nondisplaced fracture of the lateral malleolus. There is mild associated soft tissue edema. No dislocations. No significant degenerative changes. Reading Location: [facility] Foot X-Ray 04/17/25 23:30 IMPRESSION: No acute fracture or dislocations. No significant degenerative changes. No acute soft tissue abnormalities. No radiographic foreign body. Reading Location: [facility] Three-view x-rays of the right ankle obtained interpreted by myself as nondisplaced fracture of the lateral malleolus. Radiology in agreement. Three-view x-rays of the right foot obtained interpreted by myself as no evidence of fracture or dislocation. Radiology in agreement. Discharge Plan Triage Chief Complaint: Lower Extremity Injury ED Provider: Vibha Almonte Dx/Rx/DC Orders Clinical Impression: Ankle fracture, left Instructions: ED Ankle Fracture, Distal Fibula Prescriptions: No Action Mirena 20 mcg/24 hours (7 yrs) 52 mg intrauterine device 1 device intrauterine ONCE Rx Instructions: as a single dose aspirin 81 mg tablet,delayed release (DR/EC) 81 mg PO DAILY Vyepti 100 mg/mL solution 100 mg .Route [id number] Rx Instructions: every 3 monthsheadache 100 mg topiramate 200 mg tablet 50 mg PO QHS Belsomra 20 mg tablet 20 mg PO HS methylprednisolone [Medrol (Taiwo)] 4 mg tablets,dose pack 4 mg PO QDAY Qty: 21 0RF tizanidine 4 MG capsule 4 mg PO DAILY PRN PRN (Reason: Migraine Symptoms) cholecalciferol (vitamin D3) 1,000 UNIT tablet 1,000 units PO DAILY magnesium oxide 500 MG capsule 500 mg PO BID promethazine 25 mg Tablet 25 mg PO PRN PRN (Reason: Nausea) omega-3 fatty acids-vitamin E 1,000 mg Capsule 1,000 cap PO DAILY Zyrtec 20 mg PO/SL QHS Qulipta 60 mg PO/SL DAILY levomefolate calcium [L-Methylfolate] 15 mg Tablet 15 mg PO DAILY famotidine 20 mg tablet 20 mg PO QHS Qty: 30 11RF Linzess 145 mcg capsule 145 mcg PO DAILY Qty: 30 2RF pantoprazole 40 mg tablet,delayed release (DR/EC) 40 mg PO QDAY Qty: 90 3RF Primary Care Provider: Freddy Carl Referrals: Nikyk Pillai MD [Med Staff - [employer]] - Martin Carl MD [Med Staff - Active Staff] - 3-5 Days Print Language: Croatian Disposition Disposition: Home, Self Care
--- NOTE | 2025-04-17 23:30 | RAD_ITS ---
PROCEDURE: FOOT MIN 3 VIEWS 04/17/2025 REASON FOR EXAM: INJURY TECHNIQUE: FOOT MIN 3 VIEWS COMPARISON: None RAD/Foot min 3 Views IMPRESSION: No acute fracture or dislocations. No significant degenerative changes. No acute soft tissue abnormalities. No radiographic foreign body. Reading Location: [id number]
--- NOTE | 2025-04-17 23:30 | RAD_ITS ---
PROCEDURE: ANKLE MIN 3 VIEWS 04/17/2025 REASON FOR EXAM: INJURY TECHNIQUE: ANKLE MIN 3 VIEWS COMPARISON: None RAD/Ankle min 3 Views IMPRESSION: Question nondisplaced fracture of the lateral malleolus. There is mild associa ralph soft tissue edema. No dislocations. No significant degenerative changes. Reading Location: [id number]
--- OUTSIDE RECORDS SUMMARY | 2025-04-17 23:57 | XMS RPT_ITS | CCD ---
Author Organization [facility]iniSyor Care Team Providers Care Body Mechanic Name Role Phone Nikky Pillai Unavailable Unavailable Unavailable Dr. Nikky Pillai Primary Care Provider Dr. Nikky Pillai Referring Provider Dr. Jamie Cuevas Attending Provider Dr. Skip Patterson Attending Provider FriendDr. Ayala Other Provider [phone] Unavailable Unavailable Ariadna HAWTHORNE, DIRECTOR TRANSITION-C Maya Moreau Attending Provider MARINE Dill-Isi Prince Attending Provider [phone] Nikky Pillai Primary Care Provider [phone] Dr. Nikky Pillai Primary Care Provider Dr. Nikky Pillai Referring Provider Dr. Jamie Cuevas Attending Provider Dr. Carie King Emergency Provider [phone] Dr. Silvia Coates Admit Provider Dr. Silvia Coates Attending Provider Dr. Silvia Coates Other Provider Dr. Nikky Pillai Primary Care Provider Dr. Nikky Pillai Referring Provider [phone] Jamie Cuevas Attending Provider [phone] Dr. Jamie Cuevas Other Provider [phone] Butch Dinero Attending Provider Dr. Butch Dinero Other Provider Rosas, Nikky S Primary Care Provider Rosas, Nikky S Primary Care Provider Dr. Nikky Pillai Primary Care Provider Dr. Nikky Pillai Referring Provider Dr. Jamie Cuevas Attending Provider Dr. Nikky Pillai Primary Care Provider Dr. Nikky Pillai Referring Provider [phone] Friend, Dr. Ayala Attending Provider [phone] MELISSA Jang Attending Provider MELISSA Chavez Attending Provider Jolliff, Nikky Morales Primary Care Provider Jolliff, Nikky Morales Primary Care Provider GEOVANNALLIFF, NIKKY MORALES Primary Care Unavailable WISWELL, ANT Referring Unavailable JOLLIFF, NIKKY MORALES Primary Care Unavailable WISWELL, ANT Attending Unavailable Jolliff, Nikky S Primary Care Provider Rosas, Nikky S Primary Care Provider JOLLIFF, NIKKY Primary Care Unavailable BLANCOTANYA ARNOLD Attending Unavailable BAVLORENZO SINGER Referring Unavailable JOLLIFF, NIKKY Primary Care Unavailable IRON KRISHNAN Attending Unavailable JOLLIFF, NIKKY Primary Care Unavailable BLANCO, JOSE Attending Unavailable BAVLORENZO SINGER Referring Unavailable JOLLIFF, NIKKY Primary Care Unavailable BAVLORENZO SINGER Attending Unavailable LORENZO LR Referring Unavailable JOLLIFF, NIKKY Primary Care Unavailable IRON KRISHNAN Attending Unavailable IRON KRISHNAN Referring Unavailable JOLLIFF, NIKKY Primary Care Unavailable BLANCO, TANYA Attending Unavailable BAVLORENZO SINGER Referring Unavailable JOLLIFF, NIKKY Primary Care Unavailable BLANCO, JOSE Attending Unavailable BAVLORENZO SINGER Referring Unavailable BLANCOTANYA Attending Unavailable BAVLORENZO SINGER Referring Unavailable JOLLIFF, NIKKY Primary Care Unavailable JOLLIFF, NIKKY Primary Care Unavailable BLANCO, TANYA Attending Unavailable BAVISLORENZO Referring Unavailable JOLLIFF, NIKKY Primary Care Unavailable BLANCO, TANYA Attending Unavailable BAVISLORENZO Referring Unavailable JOLLIFF, NIKKY Primary Care Unavailable BLANCO, TANYA Attending Unavailable BAVIS, LORENZO Referring Unavailable JOLLIFF, NIKKY Primary Care Unavailable BLANCO, TANYA Attending Unavailable BAVLORENZO SINGER Referring Unavailable JOLLIFF, NIKKY Primary Care Unavailable BLANCO, TANYA Attending Unavailable BAVLORENZO SINGER Referring Unavailable BLANCO, TANYA Attending Unavailable BAVIS, LORENZO Referring Unavailable JOLLIFF, NIKKY Primary Care Unavailable JOLLIFF, NIKKY Primary Care Unavailable BAVENMANUEL, LORENZO Referring Unavailable JOLLIFF, NIKKY Primary Care Unavailable BLANCO, TANYA Attending Unavailable BAVENMANUEL, LORENZO Referring Unavailable JOLLIFF, NIKKY Primary Care Unavailable BLANCO, TANYA Attending Unavailable BAVENMANUEL, LORENZO Referring Unavailable JOLLIFF, NIKKY Primary Care Unavailable BLANCO, TANYA Attending Unavailable BAVLORENZO SINGER Referring Unavailable BLANCO, TANYA Attending Unavailable JOLLIFF, NIKKY Primary Care Unavailable BAVLORENZO SINGER Referring Unavailable JOLLIFF, NIKKY Primary Care Unavailable BLANCO, TANYA Attending Unavailable BAVLORENZO SINGER Referring Unavailable KAYLEIGH KRISHNANINDA Referring Unavailable IRON KRISHNAN Attending Unavailable JOLLIFF, NIKKY Primary Care Unavailable ARIELLAKAYLEIGHIRON Referring Unavailable ARIELLAOWENA Attending Unavailable JOLLIFF, NIKKY Primary Care Unavailable JOLLIFF, NIKKY Primary Care Unavailable BAVENMANUEL, LORENZO Attending Unavailable JOLLIFF, NIKKY Primary Care Unavailable BAVENMANUEL, LORENZO Attending Unavailable BAVLORENZO SINGER Referring Unavailable JOLLIFF, NIKKY Primary Care Unavailable BAVENMANUEL, LORENZO Attending Unavailable BAVISLORENZO Referring Unavailable BAVENMANUEL, LORENZO Attending Unavailable BAVLORENZO SINGER Referring Unavailable JOLLIFF, NIKKY Primary Care Unavailable JOLLIFF, NIKKY Primary Care Unavailable BLANCO, JOSE Attending Unavailable BAVLORENZO SINGER Referring Unavailable JOLLIFF, NIKKY Primary Care Unavailable BLANCO, JOSE Attending Unavailable BAVLORENZO SINGER Referring Unavailable JOLLIFF, NIKKY Primary Care Unavailable BLANCO, JOSE Attending Unavailable BAVLORENZO SINGER Referring Unavailable JOLLIFF, NIKKY Primary Care Unavailable BLANCO, TANYA Attending Unavailable BAVLORENZO SINGER Referring Unavailable JOLLIFF, NIKKY Primary Care Unavailable BLANCO, JOSE Attending Unavailable BAVLORENZO SINGER Referring Unavailable JOLLIFF, NIKKY Primary Care Unavailable BLANCO, TANYA Attending Unavailable BAVLORENZO SINGER Referring Unavailable JOLLIFF, NIKKY Primary Care Unavailable BLANCO, TANYA Attending Unavailable BAVIS, LORENZO Referring Unavailable JOLLIFF, NIKKY Primary Care Unavailable BLANCO, TANYA Attending Unavailable BAVIS, LORENZO Referring Unavailable JOLLIFF, NIKKY Primary Care Unavailable BLANCO, TANYA Attending Unavailable BAVIS, LORENZO Referring Unavailable BLANCO, TANYA Attending Unavailable BAVIS, LORENZO Referring Unavailable JOLLIFF, NIKKY Primary Care Unavailable BLANCO, TANYA Attending Unavailable BAVIS, LORENZO Referring Unavailable JOLLIFF, NIKKY Primary Care Unavailable BLANCO, TANYA Attending Unavailable BAVIS, LORENZO Referring Unavailable JOLLIFF, NIKKY Primary Care Unavailable BLANCO, TANYA Attending Unavailable BAVIS, LORENZO Referring Unavailable JOLLIFF, NIKKY Primary Care Unavailable BLANCO, TANYA Attending Unavailable BAVIS, LORENZO Referring Unavailable JOLLIFF, NIKKY Primary Care Unavailable BAVIS, LORENZO Attending Unavailable JOLLIFF, NIKKY Primary Care Unavailable BLANCO, TANYA Attending Unavailable JOLLIFF, NIKKY Primary Care Unavailable BAVIS, LORENZO Referring Unavailable BLANCO, TANYA Attending Unavailable JOLLIFF, NIKKY Primary Care Unavailable BAVIS, LORENZO Referring Unavailable Jolliff, Nikky S Primary Care Unavailable Friend, Jamie Attending Unavailable Jolliff, Nikky S Referring Unavailable Friend, Jamie Attending Unavailable Jolliff, Nikky S Referring Unavailable Jolliff, Nikky S Primary Care Unavailable Roof Freddy HAWTHORNE Attending Unavailable Jolliff, Nikky S Referring Unavailable Jolliff, Nikky S Primary Care Unavailable Jolliff, Nikky S Primary Care Unavailable Vibha Almonte Attending Unavailable Allergies Allergy Classification Reported Allergen(s) Allergy Type Date of Onset Reaction(s) Facility Amitriptyline (3 sources) Amitriptyline Drug Allergy 12-02-19 Hallucinations [facility] Work Phone: Anti-Epileptic Agents (3 sources) gabapentin Drug Allergy 12-02-19 [facility] DOPamine Antagonists (3 sources) Metoclopramide Drug Allergy 12-02-19 Anxiety, Palpitations [facility] Macrolides (antibiotic) (3 sources) Azithromycin Drug Allergy 11-16-19 [facility] Opioid Agonists (3 sources) HYDROcodone Drug Allergy 11-11-19 [facility] (8 sources) Acetaminophen / HYDROcodone; Translations: [Vicodin ES TABS] Drug Allergy [facility] Work Phone: (20 sources) Erythromycin; Translations: [erythromycin] Drug Allergy 08-17-20 GI Upset [facility] Work Phone: (20 sources) gabapentin; Translations: [gabapentin] Drug Allergy 12-02-19 23 Swelling [facility] Work Phone: (12 sources) HYDROcodone; Translations: [hydrocodone bitartrate] Drug Allergy 09-23-20 21 Other [facility] (7 sources) Acetaminophen / HYDROcodone; Translations: [HYDROCODONE-ACET AMINOPHEN] Drug Allergy 02-28-20 11 Intolerance [facility] Work Phone: (20 sources) Azithromycin; Translations: [AZITHROMYCIN] Drug Allergy 11-16-19 15 GI Upset [facility] (20 sources) Amitriptyline Drug Allergy 12-02-19 23 Hallucinations [facility] Work Phone: (20 sources) HYDROcodone Drug Allergy 11-11-19 [facility] (20 sources) Metoclopramide Drug Allergy 12-02-19 Anxiety, Palpitations [facility] (20 sources) Erythromycin Base; Translations: [erythromycin base] Drug Intolerance 11-11-19 [facility] (1 source) gabapentin Drug Allergy 04-17-20 [facility] Repository Medications Current Medications Medication Drug Class(es) Dates Sig (Normalized) Sig (Original) acetaminophen 325 mg / oxyCODONE hydrochloride 10 mg oral tablet (20 sources) Opioid Agonist Start: 12-11-2022 End: 12-16-2022 take 1 tablet by mouth every twelve hours as needed for pain oxyCODONE-acetamin ophen (Percocet) 10-325 MG tablet Indications: 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 Do not start before December 11, 2022. 15 tablet 0 12/11/2022 12/16/2022 Active Start: 02-13-2022 take 1 tablet by claudia twice daily Oxycodone-Acetaminophen Active 1 TABLET PO TWICE A DAY February 12, 2022 11:00pm Start: 12-25-2020 oxyCODONE-Acet aminophen 5-325 MG Oral Tablet Quantity: 30 Refills: 0 Ordered: 25-Dec-2020 DO Start : 25-Dec-2020 Complete Start: 09-21-2020 End: 09-28-2020 take 1 tablet by mouth every six hours as needed Oxycodone-Acetaminophen Discontinued 1 TABLET PO EVERY 6 HOURS NEEDED 07 26September 21, 2020 September 28, 2020 1:02am Start: 07-24-2016 End: 02-13-2022 take 1 tablet by mouth every four hours as needed Oxycodone-Acetaminophen Discontinued 1 - 2 TABLET PO EVERY 4 HOURS NEEDED April 22, 2019 9:30am February 13, 2022 11:02am take 1 tablet by claudia th every four hours as needed oxyCODONE-acetaminophen (PERCOCET) 10-32 5 mg tablet Take 1 tablet by mouth every 4 hours as needed. 0 Active End: 03-26-2023 oxyCODONE-acetaminophen (Per cocet) 10-325 MG tablet oxycodone-acetaminophen 10 mg-325 mg tablet take 1 tablet up to twice daily at least 4 hours apart as needed for migraine 0 03/26/2023 Discontinued Percocet 10-325 MG Oral Tablet Take as directed as needed Quantity: 0 Refills: 0 Ordered: 17-Dec-2021 DO Active Comment on above: Take 1 tablet by claudia th every 4 hours as needed. amoxicillin 875 mg / clavulanate 125 mg oral tablet (1 source) Penicillin-class Antibacterial Start: take 1 tablet by mouth twice daily Amoxicillin-Pot Clavulanate Active 1 TABLET PO TWICE A DAY August 05, 2023 12:00am amylase 81759 unt / lipase 31342 unt / protease 83777 unt delayed release oral capsule (20 sources) pancrelipase, Usz-Ltlr-Ardk, (Zenpep) 18320-81328 units capsule delayed-release particles capsule Active pancrelipase, Li p-Prot-Amyl, (Zenpep) 76282-504324 units capsule delayed- release particles capsule Active aspirin 81 mg delayed release oral tablet (20 sources) Platelet Aggregation Inhibitor, Nonsteroidal Anti-inflammatory Drug Start: 02-13-2022 take 81 mg by mouth once daily Aspirin Active 81 MG PO DAILY February 13, 2022 12:00am Start: 02-12-2021 SM Aspirin Micah lt Low Strength 81 MG Oral Tablet Delayed Release Quantity: 30 Refills: 0 Ordered: 06-Jul-2021 DO Start : 12-Feb-2021 Complete Start: 12-25-2018 End: 02-13-2022 take 81 mg by mouth once daily Aspirin Discontinued 81 MG PO DAILY@0800 December 25, 2018 1:00am February 13, 2022 11:07am aspirin 81 MG or al suspension Active Aspirin 81 MG TA BS Quantity: 0 Refills: 0 Ordered: 22-Jun-2021 DO Active Comment on above: Take 81 mg by mouth once daily. Atogepant (Qulipta) 60 MG tablet (20 sources) Start: 02-18-2025 take 1 tablet by mouth once daily in the evening Atogepant (Qulipta) 60 MG tablet Indications: 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 Take 1 tablet by mouth daily. 30 tablet 03/08/2025 1:11 PM EDT 02/18/2025 Active Start: 02-18-2025 End: 04-07-2025 take 1 tablet by mouth once daily in the evening Atogepant (Qulipta) 60 MG tablet Indications: 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 Take 1 tablet by mouth daily. 30 tablet 03/08/2025 1:11 PM EDT 02/18/2025 04/07/2025 Active Start: 02-18-2025 End: 04-06-2025 take 1 tablet by mouth once daily Atogepant (Qulipta) 60 MG tablet Indications: 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 Take 1 tablet by mouth daily. 30 tablet 02/18/2025 04/06/2025 Active Start: 02-18-2025 End: 03-20-2025 take 1 tablet by mouth once daily Atogepant (Qulipta) 60 MG tablet Indications: 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 Take 1 tablet by mouth daily. 30 tablet 02/18/2025 03/20/2025 Active Start: 11-19-2024 End: 02-18-2025 take 1 tablet by mouth once daily in the evening Atogepant (Qulipta) 60 MG tablet Indications: 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 Take 1 tablet by mouth daily. 30 tablet 11 01/11/2025 4:23 PM EDT 11/19/2024 02/18/2025 Discontinued (Reorder) Start: 11-19-2024 End: 02-13-2025 take 1 tablet by mouth once daily in the evening Atogepant (Qulipta) 60 MG tablet Indications: 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 Take 1 tablet by mouth daily. 30 tablet 11 01/11/2025 4:23 PM EDT 11/19/2024 02/13/2025 Active Start: 11-19-2024 End: 01-14-2025 take 1 tablet by mouth once daily in the evening Atogepant (Qulipta) 60 MG tablet Indications: 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 Take 1 tablet by mouth daily. 30 tablet 11 12/15/2024 4:33 PM EST 11/19/2024 01/14/2025 Active Start: 11-19-2024 End: 12-19-2024 take 1 tablet by mouth once daily Atogepant (Qulipta) 60 MG tablet Indications: 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 Take 1 tablet by mouth daily. 30 tablet 11 11/19/2024 12/19/2024 Active Start: 04-15-2024 End: 11-19-2024 take 1 tablet by mouth once daily in the evening Atogepant (Qulipta) 60 MG tablet Take 1 tablet by mouth daily. 30 tablet 11 11/17/2024 2:51 PM EST 04/15/2024 11/19/2024 Discontinued (Reorder) Start: 04-15-2024 End: 11-12-2024 take 1 tablet by mouth once daily Atogepant (Qulipta) 60 MG tablet Take 1 tablet by mouth daily. 30 tablet 11 10/07/2024 11:55 AM EST 04/15/2024 11/12/2024 Active Start: 04-15-2024 End: 11-12-2024 take 1 tablet by mouth once daily in the evening Atogepant (Qulipta) 60 MG tablet Take 1 tablet by mouth daily. 30 tablet 11 09/13/2024 4:19 PM EST 04/15/2024 11/12/2024 Active Start: 04-15-2024 End: 10-13-2024 take 1 tablet by mouth once daily in the evening Atogepant (Qulipta) 60 MG tablet Take 1 tablet by mouth daily. 30 tablet 11 09/13/2024 4:19 PM EST 04/15/2024 10/13/2024 Active Start: 04-15-2024 End: 09-13-2024 take 1 tablet by mouth once daily in the evening Atogepant (Qulipta) 60 MG tablet Take 1 tablet by mouth daily. 30 tablet 11 08/13/2024 4:07 PM EDT 04/15/2024 09/13/2024 Active Start: 04-15-2024 End: 09-13-2024 take 1 tablet by mouth once daily in the evening Atogepant (Qulipta) 60 MG tablet Take 1 tablet by mouth daily. 30 tablet 11 07/13/2024 2:05 PM EDT 04/15/2024 09/13/2024 Active Start: 04-15-2024 End: 08-14-2024 take 1 tablet by mouth once daily Atogepant (Qulipta) 60 MG tablet Take 1 tablet by mouth daily. 30 tablet 11 04/15/2024 08/14/2024 Active Start: 04-15-2024 End: 07-15-2024 take 1 tablet by mouth once daily Atogepant (Qulipta) 60 MG tablet Take 1 tablet by mouth daily. 30 tablet 11 04/15/2024 07/15/2024 Active Start: 04-15-2024 End: 06-15-2024 take 1 tablet by mouth once daily Atogepant (Qulipta) 60 MG tablet Take 1 tablet by mouth daily. 30 tablet 11 04/15/2024 06/15/2024 Active Start: 04-15-2024 End: 05-16-2024 take 1 tablet by mouth once daily Atogepant (Qulipta) 60 MG tablet Take 1 tablet by mouth daily. 30 tablet 11 04/15/2024 05/16/2024 Active Start: 04-15-2024 End: 05-15-2024 take 1 tablet by mouth once daily Atogepant (Qulipta) 60 MG tablet Take 1 tablet by mouth daily. 30 tablet 11 04/15/2024 05/15/2024 Active Start: 04-08-2023 End: 04-15-2024 take 1 tablet by mouth once daily Atogepant (Qulipta) 60 MG tablet Take 1 tablet by mouth daily. 30 tablet 11 04/08/2023 04/15/2024 Discontinued (Reorder) Start: 04-08-2023 End: 04-19-2024 take 1 tablet by mouth once daily Atogepant (Qulipta) 60 MG tablet Take 1 tablet by mouth daily. 30 tablet 11 04/08/2023 04/19/2024 Active Start: 04-08-2023 End: 02-19-2024 take 1 tablet by mouth once daily Atogepant (Qulipta) 60 MG tablet Take 1 tablet by mouth daily. 30 tablet 11 04/08/2023 02/19/2024 Active Start: 04-08-2023 End: 12-23-2023 take 1 tablet by mouth once daily Atogepant (Qulipta) 60 MG tablet Take 1 tablet by mouth daily. 30 tablet 11 04/08/2023 12/23/2023 Active Start: 04-08-2023 End: 11-23-2023 take 1 tablet by mouth once daily Atogepant (Qulipta) 60 MG tablet Take 1 tablet by mouth daily. 30 tablet 11 04/08/2023 11/23/2023 Active Start: 04-08-2023 End: 10-24-2023 take 1 tablet by mouth once daily Atogepant (Qulipta) 60 MG tablet Take 1 tablet by mouth daily. 30 tablet 11 04/08/2023 10/24/2023 Active Start: 04-08-2023 End: 10-23-2023 take 1 tablet by mouth once daily Atogepant (Qulipta) 60 MG tablet Take 1 tablet by mouth daily. 30 tablet 11 04/08/2023 10/23/2023 Active Start: 04-08-2023 End: 09-23-2023 take 1 tablet by mouth once daily Atogepant (Qulipta) 60 MG tablet Take 1 tablet by mouth daily. 30 tablet 11 04/08/2023 09/23/2023 Active Start: 04-08-2023 End: 08-24-2023 take 1 tablet by mouth once daily Atogepant (Qulipta) 60 MG tablet Take 1 tablet by mouth daily. 30 tablet 11 04/08/2023 08/24/2023 Active Start: 04-08-2023 End: 07-25-2023 take 1 tablet by mouth once daily Atogepant (Qulipta) 60 MG tablet Take 1 tablet by mouth daily. 30 tablet 11 04/08/2023 07/25/2023 Active Start: 04-08-2023 End: 06-25-2023 take 1 tablet by mouth once daily Atogepant (Qulipta) 60 MG tablet Take 1 tablet by mouth daily. 30 tablet 11 04/08/2023 06/25/2023 Active Start: 04-08-2023 End: 05-25-2023 take 1 tablet by mouth once daily Atogepant (Qulipta) 60 MG tablet Take 1 tablet by mouth daily. 30 tablet 11 04/08/2023 05/25/2023 Active Start: 04-08-2023 End: 05-08-2023 take 1 tablet by mouth once daily Atogepant (Qulipta) 60 MG tablet Take 1 tablet by mouth daily. 30 tablet 11 04/08/2023 05/08/2023 Active Start: 03-27-2023 End: 01-23-2024 take 1 tablet by mouth once daily Atogepant (Qulipta) 60 MG tablet Take 1 tablet by mouth daily. 30 tablet 3 03/27/2023 01/23/2024 Active Start: 03-27-2023 End: 05-02-2023 take 1 tablet by mouth once daily Atogepant (Qulipta) 60 MG tablet Take 1 tablet by mouth daily. 30 tablet 3 03/27/2023 05/02/2023 Start: 03-27-2023 End: 05-02-2023 take 1 tablet by mouth once daily Atogepant (Qulipta) 60 MG tablet Take 1 tablet by mouth daily. 30 tablet 3 03/27/2023 05/02/2023 Active Start: 12-02-2022 End: 04-01-2023 take 1 tablet by mouth once daily Atogepant (Qulipta) 60 MG tablet Take 1 tablet by mouth daily. 30 tablet 3 12/02/2022 04/01/2023 Suspended Start: 12-02-2022 End: 04-01-2023 take 1 tablet by mouth once daily Atogepant (Qulipta) 60 MG tablet Take 1 tablet by mouth daily. 30 tablet 3 12/02/2022 04/01/2023 Active Start: 12-02-2022 End: 03-09-2023 take 1 tablet by mouth once daily Atogepant (Qulipta) 60 MG tablet Take 1 tablet by mouth daily. 30 tablet 3 12/02/2022 03/09/2023 Active Start: 12-02-2022 End: 02-07-2023 take 1 tablet by mouth once daily Atogepant (Qulipta) 60 MG tablet Take 1 tablet by mouth daily. 30 tablet 3 12/02/2022 02/07/2023 Active Start: 12-02-2022 End: 01-15-2023 take 1 tablet by mouth once daily Atogepant (Qulipta) 60 MG tablet Take 1 tablet by mouth daily. 30 tablet 3 12/02/2022 01/15/2023 Active Start: 12-02-2022 End: 01-01-2023 take 1 tablet by mouth once daily Atogepant (Qulipta) 60 MG tablet Take 1 tablet by mouth daily. 30 tablet 3 12/02/2022 01/01/2023 Active atogepant (QULIPTA) 60 mg tablet (3 sources) take 1 tablet by mouth once daily atogepant (QULIPTA) 60 mg tablet Take 60 mg by mouth once daily. 0 Active Comment on above: Take 60 mg by mouth once daily. benzonatate 200 mg oral capsule (20 sources) Non-narcotic Antitussive Start: take 200 mg by mouth three times daily Benzonatate Active 200 MG PO THREE TIMES A DAY August 05, 2023 12:00am Start: 06-23-2022 Benzonatate Ac tive 200 MG PO 2 to 3 times per day June 22, 2022 11:00pm Start: 03-17-2022 End: 05-29-2022 Benzonatate Discontinued 200 MG PO 2 to 3 times per day March 17, 2022 1:53pm May 29, 2022 2:05pm Start: 09-23-2021 Benzonatate 20 0 MG Oral Capsule Quantity: 20 Refills: 0 Ordered: 23-Sep-2021 DO Start : 23-Sep-2021 Active Start: 09-23-2021 End: 04-27-2022 take 200 mg by mouth three times daily Benzonatate Discontinued 200 MG PO THREE TIMES A DAY September 23, 2021 1:00am February 13, 2022 11:07am biotin 10 mg oral capsule (20 sources) Start: 09-15-2020 take 82233 ug by mouth once daily Biotin Active 79320 MCG PO DAILY September 15, 2020 1:00am biotin 5000 MCG capsule Active BIOTIN ORAL Take by mouth once daily. 0 Active Comment on above: Take by mouth once d aily. cetirizine 20 mg oral tablet (20 sources) Histamine-1 Receptor Antagonist Start: 12-18-2022 take 20 mg by mouth at bedtime Zyrtec Active 20 MG SL/PO AT BEDTIME December 18, 2022 1:00am Start: 12-18-2022 Zyrtec Active 20 MG December 18, 2022 12:00am cetirizine (ZyrT EC) 10 MG tablet daily. Active Cetirizine (ZYRT EC) 10 mg cap Take by mouth once daily. 0 Active Comment on above: Take by mouth once d aily. cholecalciferol 0.025 mg oral tablet (20 sources) Vitamin D Start: 9 take 1000 [IU] by mouth once daily Cholecalciferol (Vitamin D3) Active 1000 UNITS PO DAILY December 25, 2018 1:00am Cholecalciferol (Vitamin D) 125 MCG (5000 UT) capsule Active Comment on above: Take 1,000 Units by mouth once daily. clonazePAM 0.25 mg disintegrating oral tablet (20 sources) Benzodiazepine Start: 05-05-20 23 take 0.25 mg by mouth at bedtime Clonazepam Active 0.25 MG PO AT BEDTIME May 05, 2023 12:00am Start: 03-26-2023 End: 10-09-2023 take 2 tablets by mouth once daily clonazePAM (KlonoPIN) 0.25 MG disintegrating tablet Indications: Primary insomnia DISSOLVE ONE TABLET BY MOUTH EVERY NIGHT (REPLACES 0.5MG DOSE) 30 tablet 2 03/26/2023 10/09/2023 Discontinued (Therapy completed) Start: 02-24-2023 End: 03-26-2023 clonazePAM (KlonoPIN) 0.25 M G disintegrating tablet Indications: Primary insomnia Take 1 tablet (0.25 mg) by mouth Nightly. First fill May 8 or later Do not start before February 24, 2023. 30 tablet 0 02/24/2023 03/24/2023 Discontinued Start: 12-28-2022 End: 01-27-2023 take 1 tablet by mouth twice daily clonazePAM (KlonoPIN) 0.5 MG tablet Indications: Primary insomnia Take 1 tablet (0.5 mg) by mouth 2 times daily. Do not start before December 28, 2022. 60 tablet 2 12/28/2022 Suspended Start: 12-13-2022 End: 12-27-2022 take 1 tablet by mouth twice daily clonazePAM (KlonoPIN) 1 MG tablet Indications: Primary insomnia Take 1 tablet (1 mg) by mouth 2 times daily for 14 days. Do not start before December 13, 2022. 60 tablet 0 12/13/2022 Suspended Start: 06-14-2022 End: 09-30-2022 take 1 dose by mouth once daily as needed Clonazepam Discontinued 1 MG PO EVERY MORNING June 14, 2022 12:00am September 30, 2022 5:19pm Take one time a day as needed, do not take within 6 hours of another dose. Start: 02-20-2022 End: 05-05-2023 Clonazepam Discontinued 2 MG PO AT BEDTIME December 21, 2022 10:49am May 05, 2023 10:18am Decrease dose to 1 mg at night and supplement the rest with melatonin up to 10 mg nightly to assist with sleep Start: 12-25-2018 End: 02-20-2022 take 2 mg by mouth at bedtime Clonazepam Discontinued 2 MG PO AT BEDTIME December 25, 2018 1:00am February 20, 2022 10:09am take 2 tablets by [facility] every twenty-four hours as needed clonazePAM (KLONOPIN) 1 mg tablet Take 2 mg by mouth at bedtime as needed. 0 Active clonazePAM 2 MG Oral Tablet Quantity: 0 Refills: 0 Ordered: 22-Jun-2021 DO Active Comment on above: Take 2 mg by mouth a t bedtime as needed. docosahexaenoic acid 120 mg / eicosapentaenoic acid 180 mg oral capsule (20 sources) omega-3 (fish oi l) 1000 MG capsule Active docosahexaenoic acid 350 mg / eicosapentaenoic acid 35 mg / folic acid 1 mg / phytosterols 200 mg / vitamin b12 0.5 mg / vitamin b6 12.5 mg oral capsule (3 sources) Vitamin B12 Widener [id number] nidhi 500 mg-500 mcg -1 mg-12.5 mg cap Take by mouth once daily. 0 Active Comment on above: Take by mouth once d aily. 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 3 mL 3 02/18/2025 Active estradiol 0.1 mg/ml vaginal cream (3 sources) Estrogen Start: 12-11-2023 estradiol (ESTRACE) 0.01 % (0.1 mg/gram) vaginal cream Indications: Vaginal atrophy , Vaginal dryness Insert 0.5 gram cream intravaginally every night for 2 weeks, then two days a week. 42.5 g 2 12/11/2023 Active Comment on above: Insert 0.5 gram cream intravaginally marjan ry night for 2 weeks, then two days a week. famotidine 20 mg oral tablet (20 sources) Histamine-2 Receptor Antagonist Start: 08-21-2022 End: 09-30-2022 take 20 mg by mouth at bedtime Famotidine Active 20 MG PO AT BEDTIME September 30, 2022 10:56am Comment on above: Take 20 mg by mouth once daily. ferrous sulfate 325 mg oral tablet (3 sources) Start: 02-13-2022 take 325 mg by mouth twice daily Ferrous Sulfate Active 325 MG PO TWICE A DAY February 13, 2022 11:52am Start: 10-18-2021 take 1 tablet by claudia twice daily at mealtime Ferrous Sulfate 325 (65 Fe) MG Oral Tablet TAKE 1 TABLET TWICE DAILY WITH MEALS. Quantity: 60 Refills: 5 Ordered: 18-Oct-2021 Freddy Franco MD Start : 18-Oct-2021 Active folic acid 1 mg oral tablet (20 sources) Start: 12-25-2018 take 2 mg by mouth once daily Folic Acid Active 2 MG PO DAILY December 25, 2018 12:00am End: 03-26-2023 folic acid (Folvite) 1 MG ta blet folic acid 1 mg tablet 0 03/26/2023 Discontinued (Entered in error) FOLIC ACID ORAL Take by mouth. 0 Active take 2 tablets by mo [facility] once daily Folic Acid 1 MG Oral Tablet TAKE 2 TABLETS ONCE A DAY Quantity: 0 Refills: 0 Ordered: 17-Dec-2021 DO Active Comment on above: Take by mouth. hydrOXYzine hydrochloride 25 mg oral tablet (20 sources) Antihistamine Start: 03-21-2025 hydrOXYzine HCl (Atarax) 25 MG tablet Indications: 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 TAKE 1 OR 2 TABLETS BY MOUTH AT BEDTIME NEEDED WITH SUVOREXANT 60 tablet 03/21/2025 Active Start: 04-08-2024 End: 02-18-2025 hydrOXYzine HCl (Atarax) 25 MG tablet Indications: 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 Take one or two tablets by mouth at bedtime as needed with suvorexant 60 tablet 1 11/22/2024 01/19/2025 Discontinued (Reorder) Start: 01-05-2024 End: 02-27-2024 take 1 tablet by mouth once daily as needed hydrOXYzine HCl (Atarax) 25 MG tablet Indications: 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 Take 1 tablet (25 mg) by mouth Nightly as needed (insomnia). 30 tablet 1 01/28/2024 Active Start: 11-12-2023 End: 12-12-2023 take 1 tablet by mouth once daily as needed hydrOXYzine HCl (Atarax) 25 MG tablet Indications: 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 Take 1 tablet (25 mg) by mouth Nightly as needed (insomnia). 30 tablet 1 11/12/2023 Active ixvq-[id number]-D SS 160 mg iron-1 mg-60 mcg tab (6 sources) take 1 tablet by mouth once daily [id number] 160 mg iron-1 mg-60 mcg tab Take 1 tablet by mouth once daily. 0 Active Comment on above: Take 1 tablet by claudia th once daily. L-Methylfolate 15 MG tablet (11 sources) St ar t: En d: take 1 tablet by mouth once daily at breakfast L-Methylfolate 15 MG tablet Indications: 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 Take 1 tablet by mouth daily (with breakfast). 30 tablet 12/02/2022 01/01/2023 Active levomefolate (4 sources) St ar t: take 1 tablet by mouth once daily Levomefolate Calcium (L-Methylfolate) 15 mg Tablet Active 15 MG PO DAILY December 18, 2022 1:00am Start: 12-18-2022 take 1 tablet by claudia once daily Levomefolate Calcium (L-Methylfolate) 15 mg Tablet Active 15 MG PO DAILY December 18, 2022 12:00am levonorgestrel 0.230450 mg/hr intrauterine system (20 sources) Progestin, Progestin-containing Intrauterine Device Start: 02-13-2022 Levonorgestrel (Mirena) 20 mcg/24 hours (7 yrs) 52 mg intrauterine device Active 1 DEVICE INTRA-UTER ONCE February 13, 2022 12:00am as a single dose Start: 09-15-2020 End: 02-13-2022 Mirena Discontinued 1 VAG RI NG VAGINAL DAILY September 15, 2020 2:50pm February 13, 2022 11:00am Start: 09-15-2020 End: 02-13-2022 Mirena Discontinued 1 VAG RI NG VAGINAL DAILY September 15, 2020 12:00am February 13, 2022 10:00am Start: 09-15-2020 End: 02-13-2022 Mirena Discontinued 1 VAG RI NG VAGINAL DAILY September 15, 2020 1:00am February 13, 2022 11:00am levonorgestrel ( Mirena, 52 MG,) 20 MCG/DAY IUD 1 each by IntraUTERine route. Active levonorgestrel ( MIRENA) 20 mcg/24 hours (5 yrs) 52 mg IUD 1 Each by INTRAUTERINE route one time only. 0 Active Comment on above: 1 Each by INTRAUTERI NE route one time only. linaclotide 0.145 mg oral capsule (20 sources) Guanylate Cyclase-C Agonist Start: 3 End: 3 take 1 capsule by mouth once daily Linaclotide (Linzess) 145 mcg capsule Active 145 MCG PO DAILY August 11, 2023 12:16pm Start: 05-29-2022 End: 03-26-2023 take 1 capsule by mouth once daily Linaclotide (Linzess) 72 mcg capsule Discontinued 72 MCG PO DAILY September 30, 2022 10:56am February 26, 2023 5:25pm Comment on above: Take by mouth once d aily. Gzdnok-Uvzmnbim-Kvpovyv (Zenpep) 40,000-126,000- 168,000 unit capsule,delayed release(DR/EC) (12 sources) Start: 10-07-2022 Arsysm-Gjpdqmrh-Ltoruia (Zenpep) 40,000-126,000- 168,000 unit capsule,delayed release(DR/EC) Active 3 CAP PO THREE TIMES A DAY 320 October 07, 2022 9:51am Take three with meals and 1-2 with snacks Start: 10-07-2022 Lipase-Proteas e-Amylase (Zenpep) 40,000-126,000- 168,000 unit capsule,delayed release(DR/EC) Active 3 CAP PO THREE TIMES A DAY 320 October 07, 2022 8:51am Take three with meals and 1-2 with snacks Start: 05-30-2022 End: 10-07-2022 Yvpiot-Tjapwrua-Vceleat (Jonas pep) 40,000-126,000- 168,000 unit capsule,delayed release(DR/EC) Discontinued 3 CAP PO THREE TIMES A DAY 320 May 30, 2022 12:00am October 07, 2022 9:51am Take three with meals and 1-2 with snacks Start: 05-30-2022 End: 10-07-2022 Anxxps-Jxhrrrbm-Xfreivb (Jonas pep) 40,000-126,000- 168,000 unit capsule,delayed release(DR/EC) Discontinued 3 CAP PO THREE TIMES A DAY 320 May 29, 2022 11:00pm October 07, 2022 8:51am Take three with meals and 1-2 with snacks magnesium oxide 500 mg oral capsule (20 sources) Start: 11-11-2019 take 500 mg by mouth twice daily Magnesium Oxide Active 500 MG PO TWICE A DAY November 11, 2019 1:00am take 2 tablets by mo ut once daily, then take 1 tablet by mouth in the morning, then take 1 tablet by mouth in the evening Magnesium Oxide 500 mg tab Take 1,000 mg by mouth once daily. 500 MG in morning, 500 MG in evening 0 Active Comment on above: Take 1,000 mg by claudia th once daily. Take 1,000 mg by claudia th once daily. 500 MG in morning, 500 MG in evening mecobalamin 1 mg sublingual tablet (20 sources) Start: 02-13-2022 Methylcobalamin 1000 MCG sublingual tablet Mecobalamin (Vitamin B12) Active 1000 MCG SL DAILY February 12, 2022 11:00pm place tablet under tongue and allow to dissolve for at least30 secs before swallowing 02/13/2022 Active Start: 02-13-2022 Mecobalamin (V itamin B12) Active 1000 MCG SL DAILY February 12, 2022 11:[address]pm place tablet under tongue and allow to dissolve for at least30 secs before swallowing naproxen 500 mg oral tablet (2 sources) Nonsteroidal Anti-inflammatory Drug Start: 08-18-2022 take 500 mg by mouth twice daily as needed Naproxen Active 500 MG PO TWICE DAILY NEEDED August 17, 2022 11:00pm Nirmatrelvir-Ri tonavir (1 source) Start: 03-16-2022 Nirmatrelvir-Riton avir Active 0 PO .COMPLEX March 16, 2022 12:00am take TWO 150 mg tablets of nirmatrelvir with ONE 100 mg tablet of ritonavir twice daily for 5 days PO Widener-3 Fatty Acids-Vitamin E (4 sources) Start: 02-18-2022 take 1 capsule by mouth once daily Widener-3 Fatty Acids-Vitamin E Active 1000 CAP PO DAILY February 18, 2022 12:00am Start: 02-18-2022 take 1 capsule by mo [facility] once daily Widener-3 Fatty Acids-Vitamin E Active 1000 CAP PO DAILY February 17, 2022 11:00pm Widener-3 Fatty Acids-Vitamin E (Fish Oil) 1,000 mg Capsule (6 sources) Start: 02-18-2022 take 1 capsule by mouth once daily Widener-3 Fatty Acids-Vitamin E (Fish Oil) 1,000 mg Capsule Active 1000 CAP PO DAILY February 18, 2022 12:09pm Start: 02-18-2022 take 1 capsule by mo ut once daily Widener-3 Fatty Acids-Vitamin E (Fish Oil) 1,000 mg Capsule Active 1000 CAP PO DAILY February 17, 2022 11:00pm Start: 02-18-2022 take 1 capsule by mo uth once daily Widener-3 Fatty Acids-Vitamin E (Fish Oil) 1,000 mg Capsule Active 1000 CAP PO DAILY February 18, 2022 12:00am pantoprazole 40 mg delayed release oral tablet (20 sources) Proton Pump Inhibitor Start: 05-05-2023 End: 08-11-2023 take 1 tablet by mouth twice daily Pantoprazole (Protonix) 40 mg tablet,delayed release (DR/EC) Active 40 MG PO TWICE A DAY August 11, 2023 12:15pm Start: 11-15-2022 End: 05-05-2023 take 1 tablet by mouth once daily Pantoprazole (Protonix) 40 mg tablet,delayed release (DR/EC) Discontinued 40 MG PO DAILY February 06, 2023 9:20am May 05, 2023 10:47am Start: 08-05-2022 End: 09-30-2022 take 1 tablet by mouth once daily Pantoprazole (Protonix) 40 mg tablet,delayed release (DR/EC) Discontinued 40 MG PO DAILY August 05, 2022 3:15pm September 30, 2022 10:56am Start: 03-01-2022 End: 08-05-2022 Pantoprazole (Protonix) 40 m g tablet,delayed release (DR/EC) Discontinued 40 MG PO TWICE A DAY March 01, 2022 12:00am August 05, 2022 3:15pm take two times a day for eight weeks then once a day. Comment on above: Take 40 mg by mouth once daily. promethazine hydrochloride 25 mg oral tablet (20 sources) Phenothiazine Start: 08-10-20 End: 09-09-20 take 1 tablet by mouth every eight hours as needed for nausea and vomiting promethazine (Phenergan) 25 MG tablet Take 1 tablet (25 mg) by mouth every 8 hours as needed for nausea or vomiting. 90 tablet 3 08/10/2024 09/09/2024 Active Start: 04-19-2024 End: 05-19-2024 take 1 tablet by mouth every six hours as needed for nausea and vomiting promethazine (Phenergan) 25 MG tablet Take 1 tablet (25 mg) by mouth every 6 hours as needed for nausea or vomiting. 90 tablet 2 04/19/2024 05/19/2024 Active Start: 11-29-2023 End: 12-29-2023 take 1 tablet by mouth every six hours as needed for nausea promethazine (Phenergan) 25 MG tablet Indications: 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 Take 1 tablet (25 mg) by mouth every 6 hours as needed for nausea or vomiting. 90 tablet 3 11/29/2023 12/29/2023 Start: 12-12-2022 End: 02-13-2023 Promethazine Discontinued 25 MG RC EVERY 6 HOURS December 12, 2022 1:00am February 13, 2023 12:56pm Start: 02-18-2022 End: 04-08-2023 take 1 tablet by mouth every six hours as needed for nausea promethazine (Phenergan) 25 MG tablet Indications: 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 Take 1 tablet (25 mg) by mouth every 6 hours as needed for nausea or vomiting. 90 tablet 3 03/06/2023 04/08/2023 Start: 02-10-2014 End: 02-13-2022 take 25 mg by mouth every six hours as needed Promethazine Discontinued 25 MG PO EVERY 6 HOURS NEEDED April 22, 2019 9:31am February 13, 2022 11:06am Start: 07-29-2005 PHENERGAN 25 M G TAB Take one (1) tablet three(3) times daily as needed. nausea or headache 30 11 07/29/2005 Active promethazine (Ph energan) 25 MG tablet promethazine 25 mg tablet 0 Active Phenergan 25 MG TABS as needed Quantity: 0 Refills: 0 Ordered: 17-Dec-2021 DO Active Phenergan 25 MG TABS as needed Quantity: 0 Refills: 0 Ordered: 10-Sep-2021 DO Active Phenergan 25 MG TABS as needed Quantity: 0 Refills: 0 Ordered: 22-Jun-2021 DO Active Comment on above: Take one (1) tablet three(3) times daily as needed. nausea or headache Qulipta (5 sources) Start: 12-18-2022 take 60 mg by mouth once daily Qulipta Active 60 MG SL/PO DAILY December 18, 2022 1:00am Start: 12-18-2022 take 60 mg by mouth once daily Qulipta Active 60 MG SL/PO DAILY December 18, 2022 12:00am Start: 12-18-2022 Qulipta Active 60 MG December 18, 2022 12:00am 72 hr scopolamine 0.0139 mg/hr transdermal system (1 source) Anticholinergic Start: 12-13-2022 Scopolamine Base Active 1 PATCH TD Q3D December 13, 2022 12:00am suvorexant 20 mg oral tablet (20 sources) Orexin Receptor Antagonist Start: 01-02-2023 End: 04-07-2025 take 1 tablet by mouth once daily as needed for sleep suvorexant (Belsomra) 20 MG tablet Indications: Primary insomnia Take 1 tablet (20 mg) by mouth Nightly as needed for sleep. 30 tablet 2 03/31/2025 Active Start: 12-02-2022 End: 01-15-2023 take 1 mg by mouth once daily suvorexant (Belsomra) 15 MG tablet Indications: Primary insomnia Take 1 tablet (15 mg) by mouth Nightly. With clonazepam 1 mg 30 tablet 0 12/02/2022 Suspended Comment on above: Take by mouth once d aily. tiZANidine 4 mg oral tablet (20 sources) Central alpha-2 Adrenergic Agonist Start: 03-17-2024 End: 02-18-2025 take 1 tablet by mouth every six hours as needed for pain tiZANidine (Zanaflex) 4 MG tablet Indications: 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 Take 1 tablet (4 mg) by mouth every 6 hours as needed (neck pain). 90 tablet 3 01/19/2025 Active Start: 11-28-2023 End: 03-07-2024 take 1 tablet by mouth every six hours as needed for pain tiZANidine (Zanaflex) 4 MG tablet Indications: 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 Take 1 tablet (4 mg) by mouth every 6 hours as needed (neck pain). 90 tablet 3 11/28/2023 02/06/2024 Discontinued (Reorder) Start: 03-06-2023 End: 09-04-2023 take 1 tablet by mouth every six hours as needed for pain tiZANidine (Zanaflex) 4 MG tablet Indications: 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 Take 1 tablet (4 mg) by mouth every 6 hours as needed (neck pain). 90 tablet 3 08/05/2023 Active Start: 12-25-2018 tiZANidine HCl 4 mg capsule tiZANidine Tizanidine Hcl Active 4 MG DAILY NEEDED December 25, 2018 8:47pm 12-25-2018 [facility] ([id number]) 0 12/25/2018 Active tiZANidine HCl - 4 MG Oral Tablet as needed Quantity: 0 Refills: 0 Ordered: 17-Dec-2021 DO Active tiZANidine HCl - 4 MG Oral Tablet as needed Quantity: 0 Refills: 0 Ordered: 10-Sep-2021 DO Active tiZANidine HCl - 4 MG Oral Tablet as needed Quantity: 0 Refills: 0 Ordered: 22-Jun-2021 DO Active Comment on above: tiZANidine Tizanidin e Hcl Active 4 MG DAILY NEEDED December 25, 2018 8:47pm 12-25-2018 [facility] ([id number]) topiramate 100 mg oral tablet (20 sources) Start: 03-07-2025 End: 03-07-2026 take 1 tablet by mouth once daily topiramate (Topamax) 100 MG tablet Indications: 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 Take 1 tablet (100 mg) by mouth Nightly. 90 tablet 3 03/07/2025 03/07/2026 Active Start: 04-08-2023 End: 03-05-2025 take 1 tablet by mouth once daily topiramate (Topamax) 100 MG tablet Indications: 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 Take 1 tablet (100 mg) by mouth Nightly. 90 tablet 3 02/06/2024 03/05/2025 Discontinued (Reorder) Start: 05-29-2022 take 50 mg by mouth at bedtime Topiramate Active 50 MG PO AT BEDTIME May 29, 2022 2:05pm Start: 02-13-2022 End: 05-29-2022 take 100 mg by mouth at bedtime Topiramate Discontinue d 100 MG PO AT BEDTIME February 13, 2022 11:01am May 29, 2022 2:06pm Start: 02-13-2022 take 200 mg by mouth at bedtim e Topiramate Active 200 MG PO AT BEDTIME February 13, 2022 11:01am Start: 04-22-2019 End: 02-13-2022 take 400 mg by mouth twice daily Topiramate Discontinued 400 MG PO TWICE A DAY April 22, 2019 9:29am February 13, 2022 11:08am Start: 07-24-2016 End: 04-22-2019 take 800 mg by mouth once daily Topiramate Discontinue d 800 MG PO DAILY July 24, 2016 12:00am April 22, 2019 9:31am take 4 tablets by mo [facility] twice daily topiramate (TOPAMAX) 200 mg tablet Take 800 mg by mouth twice daily. 0 Active topiramate (Topa max) 100 MG tablet topiramate 100 mg tablet 0 Active take 1 tablet by claudia twice daily Topamax 200 MG Oral Tablet take 1 tab twice daily Quantity: 0 Refills: 0 Ordered: 10-Sep-2021 DO Active Topamax 200 MG O ral Tablet Quantity: 0 Refills: 0 Ordered: 22-Jun-2021 DO Active Comment on above: Take 800 mg by mouth twice daily. Take 100 mg by mouth once daily. ubrogepant 100 mg oral tablet (20 sources) Start: 04-08-2023 End: 04-07-2025 take 1 tablet by mouth once daily as needed, then take 1 tablet by mouth every twenty-four hours as needed ubrogepant (Ubrelvy) 100 MG tablet tablet Indications: Migraine Take 1 tablet (100 mg) by mouth once daily at onset of symptoms as needed for migraine treatment. Max dose: 200 mg in 24 hours. 48 tablet 3 03/31/2025 Active Start: 02-13-2022 End: 03-26-2023 Ubrogepant (Ubrelvy) 100 MG tablet Ubrelvy 100 mg tablet 0 02/13/2022 Active Completed/Discontinued Medications Medication Drug Class(es) Dates Sig (Normalized) Sig (Original) azithromycin 500 mg oral tablet (20 sources) Macrolide Antimicrobial Start: 12-13-2022 End: 12-18-2022 take 500 mg by mouth once daily Azithromycin Discontinued 500 MG PO DAILY 5 December 13, 2022 1:00am December 18, 2022 1:04am Start: 09-23-2021 End: 02-13-2022 Azithromycin (Zithromax) 250 mg tablet Discontinued 0 PO .COMPLEX September 23, 2021 1:00am February 13, 2022 11:07am For 250 mg dose pack: take 500 mg today (day 1), then 250 mg for 4 days (days 2-5) PO End: 07-14-2023 Azithromycin (ZITHROMAX Z-PA K PO) Take by mouth. 0 07/14/2023 Discontinued Azithromycin (ZI THROMAX Z-CHAD PO) Take by mouth. 0 Active onabotulinumtoxina 200 unt injection (20 sources) Acetylcholine Release Inhibitor Start: 04-06-2025 End: 04-06-2025 onabotulinumtoxinA (Botox) injection 200 Units Start: 04-06-2025 End: 04-06-2025 inject 200 [IU] by intramuscular injection once 200 Units, IntraMUSCular, Once, On Fri04/06/25 at 0945, For 1 dose Start: 01-04-2025 End: 01-04-2025 onabotulinumtoxinA (Botox) i njection 200 Units Start: 01-04-2025 End: 01-04-2025 inject 200 [IU] by intramuscular injection once 200 Units, IntraMUSCular, Once, On Fri01/04/25 at 1000, For 1 dose Start: 01-04-2025 End: 01-04-2025 onabotulinumtoxinA (Botox) i njection 200 Units Start: 01-04-2025 End: 01-04-2025 inject 200 [IU] by intramuscular injection once 200 Units, IntraMUSCular, Once, On Fri01/04/25 at 1000, For 1 dose Start: 11-29-2024 onabotulinumto xinA (Botox) 200 units injection Indications: Migraine Provider to inject 200 units intramuscularly every 12 weeks for migraine prevention. 1 each 1 11/29/2024 Active Start: 10-04-2024 End: 10-04-2024 onabotulinumtoxinA (Botox) i njection 200 Units Start: 10-04-2024 End: 10-04-2024 inject 200 [IU] by intramuscular injection once 200 Units, IntraMUSCular, Once, On Fri10/04/24 at 0930, For 1 dose Start: 07-12-2024 End: 07-12-2024 onabotulinumtoxinA (Botox) i njection 200 Units Start: 07-12-2024 End: 07-12-2024 inject 200 [IU] by intramuscular injection once 200 Units, IntraMUSCular, Once, On Fri07/12/24 at 1345, For 1 dose Start: 01-27-2023 End: 04-05-2025 onabotulinumtoxinA (Botox) i njection 200 Units End: 11-26-2024 onabotulinumtoxinA (Botox) 1 00 units injection Botox 100 unit injection 11/26/2024 Discontinued busPIRone hydrochloride 7.5 mg oral tablet (16 sources) Start: 12-12-2021 End: 05-29-2022 take 7.5 mg by mouth twice daily Buspirone Discontinued 7.5 MG PO TWICE A DAY February 13, 2022 12:00am May 29, 2022 2:05pm Start: 11-13-2021 take 1 tablet by claudia twice daily busPIRone HCl - 5 MG Oral Tablet TAKE 1 TABLET TWICE DAILY. Quantity: 60 Refills: 1 Ordered: 13-Nov-2021 Joshua Montalvo Start : 13-Nov-2021 Active cephalexin 500 mg oral capsule (6 sources) Cephalosporin Antibacterial Start: 04-28-2022 End: 05-08-2022 take 500 mg by mouth three times daily Cephalexin Discontinued 500 MG PO THREE TIMES A DAY 18 08April 28, 2022 12:00am May 08, 2022 12:03am 1 ml dexamethasone phosphate 4 mg/ml injection (20 sources) Corticosteroid Start: 04-11-2025 End: 04-13-2025 take 1 dose intravenously once 4 mg, IntraVENous, Administer over 3 Minutes, Once, On Fri04/13/25 at 0800, For 1 dose, Administer as IV Push Start: 03-08-2025 End: 03-08-2025 take 1 dose intravenously once 4 mg, IntraVENous, Admi nister over 3 Minutes, Once, On Fri03/08/25 at 0745, For 1 dose, Administer as IV Push Start: 02-01-2025 End: 02-03-2025 take 1 dose intravenously once 4 mg, IntraVENous, Admi nister over 3 Minutes, Once, On Fri02/03/25 at 0730, For 1 dose, Administer as IV Push Start: 12-28-2024 End: 12-30-2024 take 1 dose intravenously once 4 mg, IntraVENous, Admi nister over 3 Minutes, Once, On Fri12/30/24 at 0730, For 1 dose, Administer as IV Push Start: 11-29-2024 End: 12-01-2024 take 1 dose intravenously once 4 mg, IntraVENous, Admi nister over 3 Minutes, Once, On Fri12/01/24 at 0730, For 1 dose, Administer as IV Push Start: 11-01-2024 End: 11-03-2024 take 1 dose intravenously once 4 mg, IntraVENous, Admi nister over 3 Minutes, Once, On Fri11/03/24 at 0745, For 1 dose, Administer as IV Push Start: 09-27-2024 End: 09-29-2024 take 1 dose intravenously once 4 mg, IntraVENous, Admi nister over 3 Minutes, Once, On Fri09/29/24 at 0745, For 1 dose, Administer as IV Push Start: 08-24-2024 End: 08-26-2024 take 1 dose intravenously once 4 mg, IntraVENous, Admi nister over 3 Minutes, Once, On Jordyn 08/26/24 at 0730, For 1 dose, Administer as IV Push Start: 07-26-2024 End: 07-28-2024 take 1 dose intravenously once 4 mg, IntraVENous, Admi nister over 3 Minutes, Once, On Fri07/28/24 at 0730, For 1 dose, Administer as IV Push Start: 06-22-2024 End: 06-24-2024 take 1 dose intravenously once 4 mg, IntraVENous, Admi nister over 3 Minutes, Once, On Fri06/24/24 at 0730, For 1 dose, Administer as IV Push Start: 05-10-2024 End: 05-12-2024 take 1 dose intravenously once 4 mg, IntraVENous, eDmetria conrad over 3 Minutes, Once, On Fri05/12/24 at 0730, For 1 dose, Administer as IV Push Start: 03-23-2024 End: 03-25-2024 dexAMETHasone (Decadron) inj ection 4 mg Start: 02-04-2024 End: 02-04-2024 dexAMETHasone (Decadron) inj ection 4 mg Start: 02-02-2024 End: 02-02-2024 dexAMETHasone (Decadron) inj ection 4 mg Start: 12-29-2023 End: 12-31-2023 dexAMETHasone (Decadron) inj ection 4 mg Start: 12-01-2023 End: 12-03-2023 dexAMETHasone (Decadron) inj ection 4 mg Start: 11-03-2023 End: 11-05-2023 dexAMETHasone (Decadron) inj ection 4 mg Start: 10-08-2023 End: 10-10-2023 dexAMETHasone (Decadron) inj ection 4 mg Start: 09-08-2023 End: 09-09-2023 dexAMETHasone (Decadron) inj ection 4 mg Start: 08-07-2023 End: 08-07-2023 dexAMETHasone (Decadron) inj ection 4 mg Start: 08-06-2023 End: 08-06-2023 dexAMETHasone (Decadron) inj ection 4 mg diazePAM 2 mg oral tablet (6 sources) Benzodiazepine Start: 05-29-2022 End: 05-31-2022 take 1 tablet by mouth twice daily Diazepam (Valium) 2 mg tablet Discontinued 2 MG PO TWICE A DAY May 29, 2022 12:00am May 31, 2022 3:52pm dicyclomine hydrochloride 10 mg oral capsule (11 sources) Anticholinergic Start: 01-09-2019 End: 04-22-2019 take 20 mg by mouth three times daily before mealtime Dicyclomine Discontinued 20 MG PO THREE TIMES DAILY BEFORE MEALS January 09, 2019 12:00am April 22, 2019 9:30am 1 ml dihydroergotamine mesylate 1 mg/ml injection (20 sources) Ergotamine Derivative Start: 04-11-2025 End: 04-13-2025 take 0.5 mg intravenously once 0.5 mg, IntraVENous, Once, On 04/13/25 at 0800, For 1 dose, Give IVP slowly over 3-5 minutes. Start: 03-08-2025 End: 03-08-2025 take 0.5 mg intravenously once 0.5 mg, IntraVENous, On ce, On 03/08/25 at 0745, For 1 dose, Give IVP slowly over 3-5 minutes. Start: 02-01-2025 End: 02-03-2025 take 0.5 mg intravenously once 0.5 mg, IntraVENous, On ce, On Jordyn 02/03/25 at 0730, For 1 dose, Give IVP slowly over 3-5 minutes. Start: 12-28-2024 End: 12-30-2024 take 0.5 mg intravenously once 0.5 mg, IntraVENous, On ce, On Jordyn 12/30/24 at 0730, For 1 dose, Give IVP slowly over 3-5 minutes. Start: 11-29-2024 End: 12-01-2024 take 0.5 mg intravenously once 0.5 mg, IntraVENous, On ce, On 12/01/24 at 0730, For 1 dose, Give IVP slowly over 3-5 minutes. Start: 11-01-2024 End: 11-03-2024 take 0.5 mg intravenously once 0.5 mg, IntraVENous, On ce, On 11/03/24 at 0745, For 1 dose, Give IVP slowly over 3-5 minutes. Start: 09-27-2024 End: 09-29-2024 take 0.5 mg intravenously once 0.5 mg, IntraVENous, On ce, On 09/29/24 at 0745, For 1 dose, Give IVP slowly over 3-5 minutes. Start: 07-26-2024 End: 07-28-2024 take 0.5 mg intravenously once 0.5 mg, IntraVENous, On ce, On 07/28/24 at 0730, For 1 dose, Give IVP slowly over 3-5 minutes. Start: 06-22-2024 End: 06-24-2024 take 0.5 mg intravenously once 0.5 mg, IntraVENous, On ce, On Jordyn 06/24/24 at 0730, For 1 dose, Give IVP slowly over 3-5 minutes. Start: 05-10-2024 End: 05-12-2024 take 0.5 mg intravenously once 0.5 mg, IntraVENous, On ce, On 05/12/24 at 0730, For 1 dose, Give IVP slowly over 3-5 minutes. Start: 03-23-2024 End: 03-25-2024 dihydroergotamine (DHE) inje ction 0.5 mg Start: 02-04-2024 End: 02-04-2024 dihydroergotamine (DHE) inje ction 0.5 mg Start: 02-02-2024 End: 02-02-2024 dihydroergotamine (DHE) inje ction 0.5 mg Start: 12-29-2023 End: 12-31-2023 dihydroergotamine (DHE) inje ction 0.5 mg Start: 12-01-2023 End: 12-03-2023 dihydroergotamine (DHE) inje ction 0.5 mg Start: 11-03-2023 End: 11-05-2023 dihydroergotamine (DHE) inje ction 0.5 mg Start: 10-08-2023 End: 10-10-2023 dihydroergotamine (DHE) inje ction 0.5 mg Start: 09-08-2023 End: 09-09-2023 dihydroergotamine (DHE) inje ction 0.5 mg Start: 08-07-2023 End: 08-07-2023 dihydroergotamine (DHE) inje ction 0.5 mg Start: 08-06-2023 End: 08-06-2023 dihydroergotamine (DHE) inje ction 0.5 mg dihydroergotamin e (DHE) 1 MG/ML injection Infuse 1 mg into a venous catheter Once. Active dihydroergotamin e (D.H.E. 45) 1 MG/ML injection Infuse 1 mg into a venous catheter Once. 0 Active eptinezumab (Vyepti) 100 mg in sodium chloride 0.9 % 100 mL IVPB (6 sources) Start: 07-14-2023 End: 07-14-2023 eptinezumab (Vyepti) 100 mg in sodium chloride 0.9 % 100 mL IVPB Start: 04-01-2023 End: 04-01-2023 eptinezumab (Vyepti) 100 mg in sodium chloride 0.9 % 100 mL IVPB Start: 01-02-2023 End: 01-02-2023 eptinezumab (Vyepti) 100 mg in sodium chloride 0.9 % 100 mL IVPB eptinezumab (Vyepti) 300 mg in sodium chloride 0.9 % 100 mL IVPB (15 sources) Start: 04-06-2025 End: 04-06-2025 300 mg, IntraVENous, at 200 mL/hr, Administer over 30 Minutes, Once, On Fri04/06/25 at 1015, For 1 dose, Infuse using an infusion set with a 0.2 micron or 0.22 micron in-line or add-on sterile filter; do not administer as IV push or bolus injection. Monitor for signs and symptoms of hypersensitivity reaction. Educate patient that hypersensitivity reaction may be delayed, especially when administering a dosage form containing Polysorbate 80. Review comprehensive administration instructions prior to administering medication. Monitor for relief of headache symptoms. Use a 0.2 or 0.22 micron filter. Do not mix or administer with other meds. Following infusion, flush line with 20 mL NS Start: 01-12-2025 End: 01-12-2025 300 mg, IntraVENous, at 200 mL/hr, Administer over 30 Minutes, Once, On Fri01/12/25 at 1045, For 1 dose, Infuse using an infusion set with a 0.2 micron or 0.22 micron in-line or add-on sterile filter; do not administer as IV push or bolus injection. Monitor for signs and symptoms of hypersensitivity reaction. Educate patient that hypersensitivity reaction may be delayed, especially when administering a dosage form containing Polysorbate 80. Review comprehensive administration instructions prior to administering medication. Monitor for relief of headache symptoms. Use a 0.2 or 0.22 micron filter. Do not mix or administer with other meds. Following infusion, flush line with 20 mL NS Start: 10-04-2024 End: 10-04-2024 300 mg, IntraVENous, at 200 mL/hr, Administer over 30 Minutes, Once, On Fri10/04/24 at 1030, For 1 dose, Infuse using an infusion set with a 0.2 micron or 0.22 micron in-line or add-on sterile filter; do not administer as IV push or bolus injection. Monitor for signs and symptoms of hypersensitivity reaction. Educate patient that hypersensitivity reaction may be delayed, especially when administering a dosage form containing Polysorbate 80. Review comprehensive administration instructions prior to administering medication. Monitor for relief of headache symptoms. Use a 0.2 or 0.22 micron filter. Do not mix or administer with other meds. Following infusion, flush line with 20 mL NS Start: 07-12-2024 End: 07-12-2024 300 mg, IntraVENous, at 200 mL/hr, Administer over 30 Minutes, Once, On Fri07/12/24 at 1145, For 1 dose, Infuse using an infusion set with a 0.2 micron or 0.22 micron in-line or add-on sterile filter; do not administer as IV push or bolus injection. Monitor for signs and symptoms of hypersensitivity reaction. Educate patient that hypersensitivity reaction may be delayed, especially when administering a dosage form containing Polysorbate 80. Review comprehensive administration instructions prior to administering medication. Monitor for relief of headache symptoms. Use a 0.2 or 0.22 micron filter. Do not mix or administer with other meds. Following infusion, flush line with 20 mL NS Start: 04-05-2024 End: 04-05-2024 300 mg, IntraVENous, at 200 mL/hr, Administer over 30 Minutes, Once, On Fri04/05/24 at 1415, For 1 dose, Infuse using an infusion set with a 0.2 micron or 0.22 micron in-line or add-on sterile filter; do not administer as IV push or bolus injection. Monitor for signs and symptoms of hypersensitivity reaction. Educate patient that hypersensitivity reaction may be delayed, especially when administering a dosage form containing Polysorbate 80. Review comprehensive administration instructions prior to administering medication. Monitor for relief of headache symptoms. Use a 0.2 or 0.22 micron filter. Do not mix or administer with other meds. Following infusion, flush line with 20 mL NS Start: 01-05-2024 End: 01-05-2024 eptinezumab (Vyepti) 300 mg in sodium chloride 0.9 % 100 mL IVPB Start: 10-06-2023 End: 10-06-2023 eptinezumab (Vyepti) 300 mg in sodium chloride 0.9 % 100 mL IVPB eptinezumab (Vyepti) IVPB (14 sources) Start: 04-08-2023 End: 04-08-2023 take 200 mg intravenously once eptinezumab (Vyepti) IVPB Infuse 200 mg into a venous catheter Once for 1 dose. 1 each 0 04/08/2023 04/08/2023 Start: 04-08-2023 End: 04-08-2023 take 200 mg intravenously once eptinezumab (Vyepti) IV PB Infuse 200 mg into a venous catheter Once for 1 dose. 1 each 0 04/08/2023 04/08/2023 Active Start: 12-16-2022 End: 12-16-2022 eptinezumab (Vyepti) IVPB In fuse 100 mg into a venous catheter Once for 1 dose. Do not start before December 16, 2022. 1 each 0 12/16/2022 12/16/2022 Active gadobutrol (Gadavist) injection 5.6 mL (2 sources) Start: 03-26-2023 End: 03-26-2023 gadobutrol (Gadavist) injection 5.6 mL 1 ml galcanezumab-gnl m 120 mg/ml auto-injector (11 sources) Start: 12-25-2018 End: 04-22-2019 inject 120 mg by subcutaneous injection every month Galcanezumab-Gnlm Discontinued 120 MG SQ EVERY MONTH December 25, 2018 1:00am April 22, 2019 9:31am heparin sodium, porcine 100 unt/ml injectable solution (14 sources) Unfractionated Heparin, Anti-coagulant Start: 04-05-2024 End: 04-05-2024 500 Units, IntraCATHeter, Once PRN, line care, Starting on Fri04/05/24 at 1457 Start: 01-05-2024 End: 01-05-2024 heparin flush injection 500 Units Start: 11-04-2023 End: 11-06-2023 heparin flush injection 500 Units Start: 10-06-2023 End: 10-06-2023 heparin flush injection 500 Units Start: 07-14-2023 End: 07-14-2023 heparin flush injection 500 Units Start: 04-01-2023 End: 04-01-2023 heparin flush injection 500 Units Start: 01-02-2023 End: 01-02-2023 heparin flush injection 500 Units 1 ml ketorolac tromethamine 30 mg/ml cartridge (20 sources) Nonsteroidal Anti-inflammatory Drug, Cyclooxygenase Inhibitor Start: 04-11-2025 End: 04-13-2025 30 mg, IntraVENous, Once, On 04/13/25 at 0800, For 1 dose Start: 03-08-2025 End: 03-08-2025 30 mg, IntraVENous, Once, On Fri03/08/25 at 0745, For 1 dose Start: 02-01-2025 End: 02-03-2025 30 mg, IntraVENous, Once, On Jordyn 02/03/25 at 0730, For 1 dose Start: 12-28-2024 End: 12-30-2024 30 mg, IntraVENous, Once, On Jordyn 12/30/24 at 0730, For 1 dose Start: 11-29-2024 End: 12-01-2024 30 mg, IntraVENous, Once, On 12/01/24 at 0730, For 1 dose Start: 11-01-2024 End: 11-03-2024 30 mg, IntraVENous, Once, On Fri11/03/24 at 0745, For 1 dose Start: 09-27-2024 End: 09-29-2024 30 mg, IntraVENous, Once, On 09/29/24 at 0745, For 1 dose Start: 08-24-2024 End: 08-26-2024 30 mg, IntraVENous, Once, On Jordyn 08/26/24 at 0730, For 1 dose Start: 07-26-2024 End: 07-28-2024 30 mg, IntraVENous, Once, On 07/28/24 at 0730, For 1 dose Start: 06-22-2024 End: 06-24-2024 30 mg, IntraVENous, Once, On Jordyn 06/24/24 at 0730, For 1 dose Start: 05-10-2024 End: 05-12-2024 30 mg, IntraVENous, Once, On 05/12/24 at 0730, For 1 dose Start: 03-23-2024 End: 03-25-2024 ketorolac (Toradol) injectio n 30 mg Start: 02-04-2024 End: 02-04-2024 ketorolac (Toradol) injectio n 30 mg Start: 02-02-2024 End: 02-02-2024 ketorolac (Toradol) injectio n 30 mg Start: 12-29-2023 End: 12-31-2023 ketorolac (Toradol) injectio n 30 mg Start: 12-01-2023 End: 12-03-2023 ketorolac (Toradol) injectio n 30 mg Start: 11-03-2023 End: 11-05-2023 ketorolac (Toradol) injectio n 30 mg Start: 10-08-2023 End: 10-10-2023 ketorolac (Toradol) injectio n 30 mg Start: 09-08-2023 End: 09-09-2023 ketorolac (Toradol) injectio n 30 mg Start: 08-06-2023 End: 08-07-2023 ketorolac (Toradol) injectio n 30 mg Start: 02-17-2023 End: 08-15-2023 ketorolac (Toradol) 15 MG/ML injection Infuse 1 mL (15 mg) into a venous catheter Once as needed for moderate pain (4-6) or severe pain (7-10) for up to 1 dose. 1 mL 0 02/17/2023 08/15/2023 Discontinued Start: 12-25-2018 End: 04-22-2019 inject 30 mg by intramuscular injection every six hours Ketorolac Discontinued 30 MG IM EVERY 6 HOURS December 25, 2018 1:00am April 22, 2019 9:30am Mnibue-Slbmovdl-Zewzgpe (Zenpep) 3,000-10,000 -14,000-unit capsule,delayed release(DR/EC) (6 sources) Start: 05-29-2022 End: 05-30-2022 take 1 capsule by mouth every twenty-four hours Uummag-Ojziawbz-Wranjpm (Zenpep) 3,000-10,000 -14,000-unit capsule,delayed release(DR/EC) Discontinued 9.828 CAP PO THREE TIMES A DAY 90 May 29, 2022 12:00am May 30, 2022 5:44pm do not exceed 10,000 unit/kg lipase per 24 hrs Start: 05-29-2022 End: 05-30-2022 take 1 capsule by mouth every twenty-four hours Jrqpwg-Atfqbsls-Pkbcwmd (Zenpep) 3,000-10,000 -14,000-unit capsule,delayed release(DR/EC) Discontinued 9.828 CAP PO THREE TIMES A DAY May 28, 2022 11:00pm May 30, 2022 4:44pm do not exceed 10,000 unit/kg lipase per 24 hrs 1 ml LORazepam 2 mg/ml injection (20 sources) Benzodiazepine Start: 04-13-2025 End: 04-13-2025 1 mg, IntraVENous, Once, On Fri04/13/25 at 0800, For 1 dose, For IV doses dilute dose with 1ml NS. Start: 04-12-2025 End: 04-12-2025 1 mg, IntraVENous, Once, On Fri04/12/25 at 0745, For 1 dose, For IV doses dilute dose with 1ml NS. Start: 04-11-2025 End: 04-11-2025 1 mg, IntraVENous, Once, On Fri04/11/25 at 0745, For 1 dose, For IV doses dilute dose with 1ml NS. Start: 03-08-2025 End: 03-08-2025 1 mg, IntraVENous, Once, On Fri03/08/25 at 0745, For 1 dose, For IV doses dilute dose with 1ml NS. Start: 02-03-2025 End: 02-03-2025 1 mg, IntraVENous, Once, On Fri02/03/25 at 0730, For 1 dose, For IV doses dilute dose with 1ml NS. Start: 02-02-2025 End: 02-02-2025 1 mg, IntraVENous, Once, On Fri02/02/25 at 0745, For 1 dose, For IV doses dilute dose with 1ml NS. Start: 02-01-2025 End: 02-01-2025 1 mg, IntraVENous, Once, On Fri02/01/25 at 0800, For 1 dose, For IV doses dilute dose with 1ml NS. Start: 12-30-2024 End: 12-30-2024 1 mg, IntraVENous, Once, On Fri12/30/24 at 0730, For 1 dose, For IV doses dilute dose with 1ml NS. Start: 12-29-2024 End: 12-29-2024 1 mg, IntraVENous, Once, On Fri12/29/24 at 0745, For 1 dose, For IV doses dilute dose with 1ml NS. Start: 12-28-2024 End: 12-28-2024 1 mg, IntraVENous, Once, On Fri12/28/24 at 0745, For 1 dose, For IV doses dilute dose with 1ml NS. Start: 12-01-2024 End: 12-01-2024 1 mg, IntraVENous, Once, On Fri12/01/24 at 0730, For 1 dose, For IV doses dilute dose with 1ml NS. Start: 11-30-2024 End: 11-30-2024 1 mg, IntraVENous, Once, On Fri11/30/24 at 0730, For 1 dose, For IV doses dilute dose with 1ml NS. Start: 11-29-2024 End: 11-29-2024 1 mg, IntraVENous, Once, On Fri11/29/24 at 0745, For 1 dose, For IV doses dilute dose with 1ml NS. Start: 11-03-2024 End: 11-03-2024 1 mg, IntraVENous, Once, On Fri11/03/24 at 0745, For 1 dose, For IV doses dilute dose with 1ml NS. Start: 11-02-2024 End: 11-02-2024 1 mg, IntraVENous, Once, On Fri11/02/24 at 0730, For 1 dose, For IV doses dilute dose with 1ml NS. Start: 11-01-2024 End: 11-01-2024 1 mg, IntraVENous, Once, On Fri11/01/24 at 0745, For 1 dose, For IV doses dilute dose with 1ml NS. Start: 09-29-2024 End: 09-29-2024 1 mg, IntraVENous, Once, On Fri09/29/24 at 0745, For 1 dose, For IV doses dilute dose with 1ml NS. Start: 09-28-2024 End: 09-28-2024 1 mg, IntraVENous, Once, On Fri09/28/24 at 0745, For 1 dose, For IV doses dilute dose with 1ml NS. Start: 09-27-2024 End: 09-27-2024 1 mg, IntraVENous, Once, On 09/27/24 at 0800, For 1 dose, For IV doses dilute dose with 1ml NS. Start: 08-26-2024 End: 08-26-2024 1 mg, IntraVENous, Once, On Jordyn 08/26/24 at 0730, For 1 dose, For IV doses dilute dose with 1ml NS. Start: 08-25-2024 End: 08-25-2024 1 mg, IntraVENous, Once, On 08/25/24 at 0730, For 1 dose, For IV doses dilute dose with 1ml NS. Start: 08-24-2024 End: 08-24-2024 1 mg, IntraVENous, Once, On 08/24/24 at 0830, For 1 dose, For IV doses dilute dose with 1ml NS. Start: 07-28-2024 End: 07-28-2024 1 mg, IntraVENous, Once, On Fri07/28/24 at 0730, For 1 dose, For IV doses dilute dose with 1ml NS. Start: 07-27-2024 End: 07-27-2024 1 mg, IntraVENous, Once, On 07/27/24 at 0730, For 1 dose, For IV doses dilute dose with 1ml NS. Start: 07-26-2024 End: 07-26-2024 1 mg, IntraVENous, Once, On 07/26/24 at 0800, For 1 dose, For IV doses dilute dose with 1ml NS. Start: 06-24-2024 End: 06-24-2024 1 mg, IntraVENous, Once, On Jordyn 06/24/24 at 0730, For 1 dose, For IV doses dilute dose with 1ml NS. Start: 06-23-2024 End: 06-23-2024 1 mg, IntraVENous, Once, On Fri06/23/24 at 0730, For 1 dose, For IV doses dilute dose with 1ml NS. Start: 06-22-2024 End: 06-22-2024 1 mg, IntraVENous, Once, On 06/22/24 at 0745, For 1 dose, For IV doses dilute dose with 1ml NS. Start: 05-12-2024 End: 05-12-2024 1 mg, IntraVENous, Once, On Fri05/12/24 at 0730, For 1 dose, For IV doses dilute dose with 1ml NS. Start: 05-11-2024 End: 05-11-2024 1 mg, IntraVENous, Once, On Fri05/11/24 at 0730, For 1 dose, For IV doses dilute dose with 1ml NS. Start: 05-10-2024 End: 05-10-2024 1 mg, IntraVENous, Once, On Fri05/10/24 at 0745, For 1 dose, For IV doses dilute dose with 1ml NS. Start: 03-25-2024 End: 03-25-2024 LORazepam (Ativan) injection 1 mg Start: 03-23-2024 End: 03-24-2024 LORazepam (Ativan) injection 1 mg Start: 02-04-2024 End: 02-04-2024 LORazepam (Ativan) injection 1 mg Start: 02-02-2024 End: 02-02-2024 LORazepam (Ativan) injection 1 mg Start: 12-31-2023 End: 12-31-2023 LORazepam (Ativan) injection 1 mg Start: 12-30-2023 End: 12-30-2023 LORazepam (Ativan) injection 1 mg Start: 12-29-2023 End: 12-29-2023 LORazepam (Ativan) injection 1 mg Start: 12-03-2023 End: 12-03-2023 LORazepam (Ativan) injection 1 mg Start: 12-02-2023 End: 12-02-2023 LORazepam (Ativan) injection 1 mg Start: 12-01-2023 End: 12-01-2023 LORazepam (Ativan) injection 1 mg Start: 11-05-2023 End: 11-05-2023 LORazepam (Ativan) injection 1 mg Start: 11-04-2023 End: 11-04-2023 LORazepam (Ativan) injection 1 mg Start: 11-03-2023 End: 11-03-2023 LORazepam (Ativan) injection 1 mg Start: 10-10-2023 End: 10-10-2023 LORazepam (Ativan) injection 1 mg Start: 10-09-2023 End: 10-09-2023 LORazepam (Ativan) injection 1 mg Start: 10-08-2023 End: 10-08-2023 LORazepam (Ativan) injection 1 mg Start: 09-09-2023 End: 09-09-2023 LORazepam (Ativan) injection 1 mg Start: 09-08-2023 End: 09-08-2023 LORazepam (Ativan) injection 1 mg Start: 08-07-2023 End: 08-07-2023 LORazepam (Ativan) injection 1 mg Start: 08-06-2023 End: 08-06-2023 LORazepam (Ativan) injection 1 mg Magnesium (7 sources) Magnesium 500 MG TABS take 1 tab twice daily Quantity: 0 Refills: 0 Ordered: 17-Dec-2021 DO Active take 1 tablet by mouth twice usha ly Magnesium 500 MG Oral Tablet take 1 tab twice daily Quantity: 0 Refills: 0 Ordered: 17-Dec-2021 DO Active take 1 tablet by mouth twice usha ly Magnesium 500 MG Oral Tablet take 1 tab twice daily Quantity: 0 Refills: 0 Ordered: 10-Sep-2021 DO Active melatonin 10 mg oral tablet (11 sources) Start: 07-24-2016 End: 04-22-2019 take 10 mg by mouth at bedtime Melatonin Discontinued 10 MG PO AT BEDTIME July 24, 2016 12:00am April 22, 2019 9:30am metoclopramide 5 mg oral tablet (7 sources) Dopamine-2 Receptor Antagonist Start: 04-16-2022 End: 05-29-2022 take 1 tablet by mouth three times daily Metoclopramide Hcl (Reglan) 5 mg tablet Discontinued 5 MG PO THREE TIMES A DAY April 16, 2022 7:32pm May 29, 2022 2:02pm take with Benadryl as discussed mupirocin 0.02 mg/mg topical ointment (6 sources) RNA Synthetase Inhibitor Antibacterial Start: 04-28-2022 End: 05-05-2022 Mupirocin Discontinued 1 APPLIC TOPICAL TWICE A DAY 03 05April 28, 2022 12:00am May 05, 2022 12:03am naratriptan 2.5 mg oral tablet (3 sources) Serotonin-1b and Serotonin-1d Receptor Agonist Naratriptan HCl - 2.5 MG Oral Tablet as needed Quantity: 0 Refills: 0 Ordered: 10-Sep-2021 DO Active Naratriptan HCl - 2.5 MG Oral Tablet as needed Quantity: 0 Refills: 0 Ordered: 22-Jun-2021 DO Active Nirmatrelvir-Ritonavir (6 sources) Start: 03-16-2022 End: 04-28-2022 Nirmatrelvir-Ritonavir Disco ntinued 0 PO .COMPLEX March 16, 2022 12:00am April 28, 2022 11:34am take TWO 150 mg tablets of nirmatrelvir with ONE 100 mg tablet of ritonavir twice daily for 5 days PO Start: 03-16-2022 End: 04-28-2022 Nirmatrelvir-Ritonavir Disco ntinued 0 PO .COMPLEX March 15, 2022 11:00pm April 28, 2022 10:34am take TWO 150 mg tablets of nirmatrelvir with ONE 100 mg tablet of ritonavir twice daily for 5 days PO Widener 3 CAPS (7 sources) Widener 3 CAPS PAUL E DIRECTED. Quantity: 0 Refills: 0 Ordered: 17-Dec-2021 DO Active Widener 3 CAPS PAUL E DIRECTED. Quantity: 0 Refills: 0 Ordered: 10-Sep-2021 DO Active 2 ml ondansetron 2 mg/ml injection (20 sources) Serotonin-3 Receptor Antagonist Start: 04-11-2025 End: 04-13-2025 8 mg, IntraVENous, Once, On Fri04/13/25 at 0800, For 1 dose Start: 03-08-2025 End: 03-08-2025 8 mg, IntraVENous, Once, On Fri03/08/25 at 0745, For 1 dose Start: 02-01-2025 End: 02-03-2025 8 mg, IntraVENous, Once, On Fri02/03/25 at 0730, For 1 dose Start: 12-28-2024 End: 12-30-2024 8 mg, IntraVENous, Once, On Fri12/30/24 at 0730, For 1 dose Start: 11-29-2024 End: 12-01-2024 8 mg, IntraVENous, Once, On Fri12/01/24 at 0730, For 1 dose Start: 11-01-2024 End: 11-03-2024 8 mg, IntraVENous, Once, On Fri11/03/24 at 0745, For 1 dose Start: 09-27-2024 End: 09-29-2024 8 mg, IntraVENous, Once, On 09/29/24 at 0745, For 1 dose Start: 08-24-2024 End: 08-26-2024 8 mg, IntraVENous, Once, On Jordyn 08/26/24 at 0730, For 1 dose Start: 07-26-2024 End: 07-28-2024 8 mg, IntraVENous, Once, On 07/28/24 at 0730, For 1 dose Start: 06-22-2024 End: 06-24-2024 8 mg, IntraVENous, Once, On Jordyn 06/24/24 at 0730, For 1 dose Start: 05-10-2024 End: 05-12-2024 8 mg, IntraVENous, Once, On 05/12/24 at 0730, For 1 dose Start: 03-23-2024 End: 03-25-2024 ondansetron (Zofran) injecti on 8 mg Start: 02-04-2024 End: 02-04-2024 ondansetron (Zofran) injecti on 8 mg Start: 02-02-2024 End: 02-02-2024 ondansetron (Zofran) injecti on 8 mg Start: 12-29-2023 End: 12-31-2023 ondansetron (Zofran) injecti on 8 mg Start: 12-01-2023 End: 12-03-2023 ondansetron (Zofran) injecti on 8 mg Start: 11-03-2023 End: 11-05-2023 ondansetron (Zofran) injecti on 8 mg Start: 10-08-2023 End: 10-10-2023 ondansetron (Zofran) injecti on 8 mg Start: 09-08-2023 End: 09-09-2023 ondansetron (Zofran) injecti on 8 mg Start: 08-07-2023 End: 08-07-2023 ondansetron (Zofran) injecti on 8 mg Start: 08-06-2023 End: 08-06-2023 ondansetron (Zofran) injecti on 8 mg predniSONE 20 mg oral tablet (6 sources) Start: 12-21-2022 End: 02-13-2023 take 40 mg by mouth once daily Prednisone Discontinued 40 MG PO DAILY December 21, 2022 1:00am February 13, 2023 12:55pm Start: 06-23-2022 Prednisone Act german 10 MG PO DAILY June 22, 2022 11:00pm Take 1 tab PO QD X 5 days then 1/2 tab PO QD X 5 days then stop rimegepant 75 mg disintegrat ing oral tablet (20 sources) Start: 06-08-2020 End: 02-13-2022 Rimegepant Discontinued 75 M G PO NEEDED June 08, 2020 12:00am February 13, 2022 11:06am Start: 04-12-2020 NURTEC ODT [address] ONE TABLET IN MOUTH AT ONSET OF HEADACHE. DO NOT EXCEED 1 TABLET IN A 24 HOUR PERIOD 0 04/12/2020 Active Comment on above: PLACE ONE TABLET IN MOUTH AT ONSET OF HEADACHE. DO NOT EXCEED 1 TABLET IN A 24 HOUR PERIOD 50 ml sodium chloride 9 mg/ml injection (20 sources) Start: End: take 100 mL intravenously every hour, then take 20 mL intravenously every hour 5-250 mL/hr, IntraVENous, Once PRN, KVO, Starting on Fri04/13/25 at 0751, If patient receiving piggyback infusions and maintenance fluids are not ordered OR KVO fluids to protect IV site/ prevent frequent line interruptions/ long duration For piggyback infusion, administer at same rate as piggyback for a total of 25 mL. Enter 25 mL into dose field and piggyback rate into rate field of order. If piggyback is infusing at a rate less than 100 mL/hr, enter 25 mL into dose field and 100 mL/hr into rate field of order. For KVO fluids, enter rate of 20 mL/hr or less into rate field of order. Start: 04-06-2025 End: 04-06-2025 5-40 mL, IntraVENous, Once P RN, line care, Starting on Fri04/06/25 at 1057, If following IV push medication, administer flush at same rate as the IV push. Flush volume is determined by type of infusion therapy being given. For non-viscous solutions use: Peripheral IV = 5 mL Midline or Central Line = 10 mL/lumen For viscous solutions (i.e. blood components, parenteral nutrition, contrast media, or after obtaining blood sample) use: Peripheral IV = 10 mL Midline or Central Line = 20 mL/lumen Start: 04-06-2025 End: 04-06-2025 250 mL, IntraVENous, at 20 m L/hr, Administer over 12.5 Hours, Once, On Fri04/06/25 at 1015, For 1 dose Start: 03-08-2025 End: 03-08-2025 take 100 mL intravenously every hour, then take 20 mL intravenously every hour 5-250 mL/hr, IntraVENous, Once PRN, KVO, Starting on Fri03/08/25 at 0731, If patient receiving piggyback infusions and maintenance fluids are not ordered OR KVO fluids to protect IV site/ prevent frequent line interruptions/ long duration For piggyback infusion, administer at same rate as piggyback for a total of 25 mL. Enter 25 mL into dose field and piggyback rate into rate field of order. If piggyback is infusing at a rate less than 100 mL/hr, enter 25 mL into dose field and 100 mL/hr into rate field of order. For KVO fluids, enter rate of 20 mL/hr or less into rate field of order. Start: 02-01-2025 End: 02-03-2025 take 100 mL intravenously every hour, then take 20 mL intravenously every hour 5-250 mL/hr, IntraVENous, Once PRN, KVO, Starting on Fri02/03/25 at 0729, If patient receiving piggyback infusions and maintenance fluids are not ordered OR KVO fluids to protect IV site/ prevent frequent line interruptions/ long duration For piggyback infusion, administer at same rate as piggyback for a total of 25 mL. Enter 25 mL into dose field and piggyback rate into rate field of order. If piggyback is infusing at a rate less than 100 mL/hr, enter 25 mL into dose field and 100 mL/hr into rate field of order. For KVO fluids, enter rate of 20 mL/hr or less into rate field of order. Start: 01-12-2025 End: 01-12-2025 5-40 mL, IntraVENous, Once P RN, line care, Starting on Fri01/12/25 at 1110, Sterile vial for initial port access. If following IV push medication, administer flush at same rate as the IV push. Flush volume is determined by type of infusion therapy being given. For non-viscous solutions use: Peripheral IV = 5 mL Midline or Central Line = 10 mL/lumen For viscous solutions (i.e. blood components, parenteral nutrition, contrast media, or after obtaining blood sample) use: Peripheral IV = 10 mL Midline or Central Line = 20 mL/lumen Start: 01-12-2025 End: 01-12-2025 250 mL, IntraVENous, at 20 m L/hr, Administer over 12.5 Hours, Once, On Fri01/12/25 at 1045, For 1 dose Start: 12-28-2024 End: 12-30-2024 take 100 mL intravenously every hour, then take 20 mL intravenously every hour 5-250 mL/hr, IntraVENous, Once PRN, KVO, Starting on Jordyn 12/30/24 at 0727, If patient receiving piggyback infusions and maintenance fluids are not ordered OR KVO fluids to protect IV site/ prevent frequent line interruptions/ long duration For piggyback infusion, administer at same rate as piggyback for a total of 25 mL. Enter 25 mL into dose field and piggyback rate into rate field of order. If piggyback is infusing at a rate less than 100 mL/hr, enter 25 mL into dose field and 100 mL/hr into rate field of order. For KVO fluids, enter rate of 20 mL/hr or less into rate field of order. Start: 11-29-2024 End: 12-01-2024 take 100 mL intravenously every hour, then take 20 mL intravenously every hour 5-250 mL/hr, IntraVENous, Once PRN, KVO, Starting on [facility] 12/01/24 at 0728, If patient receiving piggyback infusions and maintenance fluids are not ordered OR KVO fluids to protect IV site/ prevent frequent line interruptions/ long duration For piggyback infusion, administer at same rate as piggyback for a total of 25 mL. Enter 25 mL into dose field and piggyback rate into rate field of order. If piggyback is infusing at a rate less than 100 mL/hr, enter 25 mL into dose field and 100 mL/hr into rate field of order. For KVO fluids, enter rate of 20 mL/hr or less into rate field of order. Start: 11-01-2024 End: 11-03-2024 take 100 mL intravenously every hour, then take 20 mL intravenously every hour 5-250 mL/hr, IntraVENous, Once PRN, KVO, Starting on Fri11/03/24 at 0737, If patient receiving piggyback infusions and maintenance fluids are not ordered OR KVO fluids to protect IV site/ prevent frequent line interruptions/ long duration For piggyback infusion, administer at same rate as piggyback for a total of 25 mL. Enter 25 mL into dose field and piggyback rate into rate field of order. If piggyback is infusing at a rate less than 100 mL/hr, enter 25 mL into dose field and 100 mL/hr into rate field of order. For KVO fluids, enter rate of 20 mL/hr or less into rate field of order. Start: 10-04-2024 End: 10-04-2024 250 mL, IntraVENous, at 20 m L/hr, Administer over 12.5 Hours, Once, On Fri10/04/24 at 1030, For 1 dose Start: 09-27-2024 End: 09-29-2024 take 100 mL intravenously every hour, then take 20 mL intravenously every hour 5-250 mL/hr, IntraVENous, Once PRN, KVO, Starting on Fri09/29/24 at 0734, If patient receiving piggyback infusions and maintenance fluids are not ordered OR KVO fluids to protect IV site/ prevent frequent line interruptions/ long duration For piggyback infusion, administer at same rate as piggyback for a total of 25 mL. Enter 25 mL into dose field and piggyback rate into rate field of order. If piggyback is infusing at a rate less than 100 mL/hr, enter 25 mL into dose field and 100 mL/hr into rate field of order. For KVO fluids, enter rate of 20 mL/hr or less into rate field of order. Start: 08-24-2024 End: 08-26-2024 take 100 mL intravenously every hour, then take 20 mL intravenously every hour 5-250 mL/hr, IntraVENous, Once PRN, KVO, Starting on Fri08/26/24 at 0726, If patient receiving piggyback infusions and maintenance fluids are not ordered OR KVO fluids to protect IV site/ prevent frequent line interruptions/ long duration For piggyback infusion, administer at same rate as piggyback for a total of 25 mL. Enter 25 mL into dose field and piggyback rate into rate field of order. If piggyback is infusing at a rate less than 100 mL/hr, enter 25 mL into dose field and 100 mL/hr into rate field of order. For KVO fluids, enter rate of 20 mL/hr or less into rate field of order. Start: 07-26-2024 End: 07-29-2024 take 100 mL intravenously every hour, then take 20 mL intravenously every hour 5-250 mL/hr, IntraVENous, Once PRN, KVO, Starting on Fri07/28/24 at 0725, If patient receiving piggyback infusions and maintenance fluids are not ordered OR KVO fluids to protect IV site/ prevent frequent line interruptions/ long duration For piggyback infusion, administer at same rate as piggyback for a total of 25 mL. Enter 25 mL into dose field and piggyback rate into rate field of order. If piggyback is infusing at a rate less than 100 mL/hr, enter 25 mL into dose field and 100 mL/hr into rate field of order. For KVO fluids, enter rate of 20 mL/hr or less into rate field of order. Start: 07-12-2024 End: 07-12-2024 250 mL, IntraVENous, at 20 m L/hr, Administer over 12.5 Hours, Once, On Fri07/12/24 at 1145, For 1 dose Start: 07-12-2024 End: 07-12-2024 5-40 mL, IntraVENous, Once P RN, line care, Starting on Fri07/12/24 at 1142, Sterile vial for initial port access. If following IV push medication, administer flush at same rate as the IV push. Flush volume is determined by type of infusion therapy being given. For non-viscous solutions use: Peripheral IV = 5 mL Midline or Central Line = 10 mL/lumen For viscous solutions (i.e. blood components, parenteral nutrition, contrast media, or after obtaining blood sample) use: Peripheral IV = 10 mL Midline or Central Line = 20 mL/lumen Start: 06-22-2024 End: 09-07-2024 take 100 mL intravenously every hour, then take 20 mL intravenously every hour 5-250 mL/hr, IntraVENous, Once PRN, KVO, Starting on Jordyn 06/24/24 at 0725, If patient receiving piggyback infusions and maintenance fluids are not ordered OR KVO fluids to protect IV site/ prevent frequent line interruptions/ long duration For piggyback infusion, administer at same rate as piggyback for a total of 25 mL. Enter 25 mL into dose field and piggyback rate into rate field of order. If piggyback is infusing at a rate less than 100 mL/hr, enter 25 mL into dose field and 100 mL/hr into rate field of order. For KVO fluids, enter rate of 20 mL/hr or less into rate field of order. Start: 05-10-2024 End: 05-15-2024 take 100 mL intravenously every hour, then take 20 mL intravenously every hour 5-250 mL/hr, IntraVENous, Once PRN, KVO, Starting on Fri05/12/24 at 0728, If patient receiving piggyback infusions and maintenance fluids are not ordered OR KVO fluids to protect IV site/ prevent frequent line interruptions/ long duration For piggyback infusion, administer at same rate as piggyback for a total of 25 mL. Enter 25 mL into dose field and piggyback rate into rate field of order. If piggyback is infusing at a rate less than 100 mL/hr, enter 25 mL into dose field and 100 mL/hr into rate field of order. For KVO fluids, enter rate of 20 mL/hr or less into rate field of order. Start: 04-05-2024 End: 04-05-2024 5-40 mL, IntraVENous, Once P RN, line care, Starting on Fri04/05/24 at 1457, Sterile vial for initial port access. If following IV push medication, administer flush at same rate as the IV push. Flush volume is determined by type of infusion therapy being given. For non-viscous solutions use: Peripheral IV = 5 mL Midline or Central Line = 10 mL/lumen For viscous solutions (i.e. blood components, parenteral nutrition, contrast media, or after obtaining blood sample) use: Peripheral IV = 10 mL Midline or Central Line = 20 mL/lumen Start: 04-05-2024 End: 06-17-2024 250 mL, IntraVENous, at 20 m L/hr, Administer over 12.5 Hours, Once, On Fri04/05/24 at 1415, For 1 dose Start: 03-23-2024 End: 03-27-2024 sodium chloride 0.9 % infusi on Start: 02-04-2024 End: 02-07-2024 sodium chloride 0.9 % infusi on Start: 02-02-2024 End: 02-03-2024 sodium chloride 0.9 % infusi on Start: 01-05-2024 End: 01-05-2024 sodium chloride 0.9 % bolus 250 mL Start: 01-05-2024 End: 01-05-2024 sodium chloride 0.9% (NS) fl ush 5-40 mL Start: 12-29-2023 End: 01-01-2024 sodium chloride 0.9 % infusi on Start: 12-01-2023 End: 12-06-2023 sodium chloride 0.9 % infusi on Start: 11-03-2023 End: 11-06-2023 sodium chloride 0.9 % infusi on Start: 10-08-2023 End: 10-10-2023 sodium chloride 0.9 % infusi on Start: 10-06-2023 End: 10-06-2023 sodium chloride 0.9 % bolus 250 mL Start: 10-06-2023 End: 10-06-2023 sodium chloride 0.9% (NS) fl ush 5-40 mL Start: 09-08-2023 End: 09-12-2023 sodium chloride 0.9 % infusi on Start: 08-06-2023 End: 08-08-2023 sodium chloride 0.9 % infusi on Start: 07-14-2023 End: 07-14-2023 sodium chloride 0.9 % infusi on Start: 07-14-2023 End: 07-14-2023 sodium chloride 0.9% (NS) fl ush 5-40 mL Start: 04-01-2023 End: 04-01-2023 sodium chloride 0.9 % infusi on Start: 04-01-2023 End: 04-01-2023 sodium chloride 0.9% (NS) fl ush 5-40 mL Start: 01-02-2023 End: 01-02-2023 sodium chloride 0.9 % infusi on sucralfate 1000 mg oral tablet (7 sources) Aluminum Complex Start: 03-15-2022 End: 05-29-2022 take 1 tablet by mouth three times daily 1 hour(s) before mealtime Sucralfate (Carafate) 1 gram tablet Discontinued 1 GM PO before meals 45 March 15, 2022 12:00am May 29, 2022 2:02pm take three times a day, one hour before meals and two hours away from other medications. traZODone hydrochloride 50 mg oral tablet (20 sources) Serotonin Reuptake Inhibitor Start: 02-20-2022 End: 05-29-2022 take 100 mg by mouth at bedtime Trazodone Discontinued 100 MG PO AT BEDTIME February 20, 2022 10:11am May 29, 2022 2:06pm Start: 02-18-2022 End: 02-20-2022 take 25-50 mg by mouth at bedtime Trazodone Discontinued 25 - 50 MG PO AT BEDTIME February 18, 2022 12:00am February 20, 2022 10:11am Start: 10-18-2021 End: 03-26-2023 take 50 mg by mouth at bedtime Trazodone Active 50 MG PO AT BEDTIME May 29, 2022 2:06pm Vitamin D TABS (7 sources) Vitamin D TABS T TRINI 1 TABLET DAILY. Quantity: 0 Refills: 0 Ordered: 17-Dec-2021 DO Active Vitamin D TABS T TRINI 1 TABLET DAILY. Quantity: 0 Refills: 0 Ordered: 10-Sep-2021 DO Active Problems Active Problems Problem Classification Problem Date Documented Da te Episodic/Chronic Abdominal pain (20 sources) Pain in pelvis; Translations: [Pelvic and perineal pain] 02-13-2022 Episodic Acute and unspecified renal failure (5 sources) Injury of kidney; Translations: [Acute kidney failure, unspecified] 12-18-2022 Episodic Anxiety disorders (20 sources) Anxiety; Translations: [Anxiety state, unspecified] 02-13-2022 Chronic Biliary tract disease (8 sources) Cholangiectasis; Translations: [Other specified diseases of biliary tract] 12-18-2022 Chronic Biliary tract disease (20 sources) Common bile duct calculus; Translations: [Calculus of bile duct without cholangitis or cholecystitis without obstruction] 02-13-2022 Episodic Calculus of urinary tract (20 sources) History of calculus of kidney; Translations: [Personal history of urinary calculi] 02-13-2022 Episodic Cardiac dysrhythmias (15 sources) Bradycardia; Translations: [Bradycardia, unspecified] Episodic Conditions associated with dizziness or vertigo (10 sources) Lightheadedness; Translations: [Dizziness and giddiness] 02-20-2022 Episodic Epilepsy; convulsions (1 source) Complex partial seizure with impairment of consciousness; Translations: [Localization-related (focal) (partial) symptomatic epilepsy and epileptic syndromes with complex partial seizures, not intractable, without status epilepticus] 04-04-2023 Chronic Esophageal disorders (6 sources) Jerome's esophagus; Translations: [Jerome's esophagus without dysplasia] 04-24-2022 Chronic Esophageal disorders (12 sources) Esophagitis; Translations: [Esophagitis] Episodic Genitourinary symptoms and ill-defined conditions (11 sources) Bacteriuria; Translations: [Bacteriuria] 01-10-2019 Episodic Headache; including migraine (20 sources) Hemiplegic migraine; Translations: [Hemiplegic migraine, without mention of intractable migraine without mention of status migrainosus] Onset: 06-06-2015 06-06-2015 Chronic Immunizations and screening for infectious disease (16 sources) Patient encounter status; Translations: [Encounter for screening for COVID-19] Episodic Menopausal disorders (1 source) Atrophy of vagina; Translations: [Postmenopausal atrophic vaginitis] 12-11-2023 Chronic Miscellaneous mental health disorders (20 sources) Primary insomnia; Translations: [Primary insomnia] Onset: 02-18-2025 Chronic Mood disorders (5 sources) Mild depression; Translations: [Depressive disorder, not elsewhere classified] Chronic Nausea and vomiting (8 sources) Intractable nausea and vomiting; Translations: [Nausea with vomiting, unspecified] 12-18-2022 Episodic Noninfectious gastroenteritis (11 sources) Chronic diarrhea of unknown origin ; Translations: [Noninfective gastroenteritis and colitis, unspecified] 01-10-2019 Episodic Nonmalignant breast conditions (1 source) Mammographic breast tissue appearance; Translations: [Dense breast tissue on mammogram, unspecified type] 04-08-2024 Episodic Other diseases of kidney and ureters (8 sources) Infectious disorder of kidney; Translations: [Infection of kidney, unspecified] Chronic Other disorders of stomach and duodenum (18 sources) Gastroparesis syndrome; Translations: [Gastroparesis] 12-12-2022 Episodic Other disorders of stomach and duodenum (10 sources) Gastroparesis; Translations: [Gastroparesis] 11-15-2022 Episodic Other endocrine disorders (5 sources) Hypoglycemia; Translations: [Hypoglycemia, unspecified] 12-18-2022 Chronic Other endocrine disorders (3 sources) Hypoglycemia, unspecified; Translations: [Hypoglycemia, unspecified] 12-18-2022 Chronic Other female genital disorders (11 sources) Abnormal uterine bleeding; Translations: [Other specified abnormal uterine and vaginal bleeding] 02-13-2022 Chronic Other female genital disorders (1 source) Vaginal dryness; Translations: [Other specified noninflammatory disorders of vagina] 12-11-2023 Episodic Other gastrointestinal disorders (6 sources) Constipation; Translations: [Constipation, unspecified] 08-21-2022 Episodic Other gastrointestinal disorders (9 sources) Constipation, unspecified; Translations: [Constipation, unspecified] 08-21-2022 Episodic Other liver diseases (11 sources) Elevated liver enzymes level; Translations: [Abnormal levels of other serum enzymes] 02-13-2022 Episodic Other lower respiratory disease (11 sources) Cough; Translations: [Acute cough] 02-13-2022 Episodic Other lower respiratory disease (11 sources) Hiccoughs; Translations: [Hiccough] 05-29-2022 Episodic Other lower respiratory disease (17 sources) Hiccough; Translations: [Hiccough] Episodic Other lower respiratory disease (1 source) Nodule of lung; Translations: [Solitary pulmonary nodule] 08-05-2023 Episodic Other lower respiratory disease (1 source) Solitary pulmonary nodule; Translations: [Solitary pulmonary nodule] 08-05-2023 Episodic Other nervous system disorders (9 sources) Disorder of autonomic nervous system; Translations: [Disorder of the autonomic nervous system, unspecified] Chronic Other screening for suspected conditions (not mental disorders or infectious disease) (11 sources) Endometrium thickened; Translations: [Abnormal findings on diagnostic imaging of other specified body structures] 02-13-2022 Chronic Other screening for suspected conditions (not mental disorders or infectious disease) (8 sources) Serum creatinine raised; Translations: [Other specified abnormal findings of blood chemistry] 12-18-2022 Episodic Other upper respiratory disease (6 sources) Cellulitis of external nose ; Translations: [Abscess, furuncle and carbuncle of nose] 04-28-2022 Episodic Other upper respiratory infections (20 sources) Laryngitis; Translations: [Acute laryngitis] Episodic Pneumonia (except that caused by tuberculosis or sexually transmitted disease) (11 sources) Mycobacterial pneumonia; Translations: [Pneumonia due to other specified bacteria] 02-13-2022 Episodic Residual codes; unclassified (5 sources) Confusional arousal disorder; Translations: [Confusional arousals] Onset: 02-18-2025 02-18-2025 Chronic Residual codes; unclassified (4 sources) Sleep paralysis; Translations: [Other sleep disorders] 02-18-2025 Chronic Residual codes; unclassified (4 sources) Obstructive sleep apnea syndrome; Translations: [Obstructive sleep apnea (adult) (pediatric)] 02-18-2025 Chronic Residual codes; unclassified (1 source) Confusional arousals; Translations: [Confusional arousals] Onset: 02-18-2025 Chronic Residual codes; unclassified (2 sources) Other sleep disorders; Translations: [Other sleep disorders] Onset: 02-18-2025 Chronic Residual codes; unclassified (19 sources) Insomnia; Translations: [Insomnia, unspecified] 02-13-2022 Episodic Residual codes; unclassified (2 sources) Disturbance in sleep behavior; Translations: [Sleep disturbance, unspecified] Episodic Residual codes; unclassified (5 sources) Non-smoker; Translations: [Other specified conditions influencing health status] Episodic Residual codes; unclassified (2 sources) Memory impairment; Translations: [Memory loss] Episodic Spondylosis; intervertebral disc disorders; other back problems (6 sources) Low back pain; Translations: [Low back pain] 08-26-2022 Episodic Viral infection (14 sources) Disease caused by 2019-nCoV; Translations: [COVID-19] Episodic Past or Other Problems Problem Classification Problem Date Documented Date Episodic/Chronic Anal and rectal conditions (6 sources) Anal fissure; Translations: [Anal fissure, unspecified] Onset: 04-26-2011 04-26-2011 Episodic Complication of device; implant or graft (20 sources) Disorder of cardiovascular prostheses and implants; Translations: [Other mechanical complication of unspecified cardiac and vascular devices and implants, initial encounter] Onset: 01-01-2023 01-01-2023 Episodic Headache; including migraine (6 sources) Drug-induced headache, not elsewhere classified, not intractable; Translations: [Drug induced headache, not elsewhere classified] Onset: 06-06-2015 06-06-2015 Episodic Other diseases of veins and lymphatics (20 sources) Difficult venous access; Translations: [Other specified disorders of veins] Onset: 01-01-2023 01-01-2023 Episodic Other nervous system disorders (6 sources) H/O: migraine; Translations: [Personal history of other diseases of the nervous system and sense organs] Onset: 11-16-2014 11-16-2014 Episodic Syncope (20 sources) Syncope and collapse; Translations: [Blackout] Onset: 03-26-2023 02-20-2022 Episodic Results Test Name Value Interpretation Reference Range Facility Progress Noteon 04-13-2025 Progress Note Patient tolerated in fusion well. Discharged home with daughter in law [facility] Progress Noteon 04-12-2025 Progress Note Patient tolerated in fusion well. Discharged home with daughter in law [facility] Progress Noteon 04-11-2025 Progress Note Patient tolerated in fusion well. Discharged home with daughter in law [facility] Progress Noteon 04-06-2025 Progress Note 1005 Pt here for Vye pti. No labs ordered. 1058 Ordered treatment completed. Patient discharged without any issues. Patient has a copy of next infusion appointment and verbalizes understanding. All questions answered. [facility]01-2025 [facility] 03-31-2025 36 Patient's primary in [facility] has changed ([facility]) and [facility] not contracted with them. Per pt please transfer Ubrelvy and Belsomra to [facility] in [place] #[phone] Other rxs can be filled within [facility]. Thanks! I pended both rxs for your review. [facility] 3603-21-2025 36 Last ov- 02/18/25 Next ov- 04/06/25 [place] [id number] 36 Botox and Vyepti do not need an auth. Vyepti 03/01/25-03/01/26 for 4 visits Botox 03/31/25-03/31/26 [facility] Progress Noteon 03-10-2025 Progress Note Patient tolerated in fusion well. Discharged home with father. [facility] Progress Noteon 03-09-2025 Progress Note Patient tolerated in fusion well. Discharged home with father. [facility] Progress Noteon 03-08-2025 Progress Note Patient tolerated in fusion well. Discharged home with father. [facility] 36on 03-07-2025 36 Call to patient. Lorena lr notified. Patient verbalized understanding. [facility] [address] [facility] 36 Spoke to Quinton Bhandari for . Joanna TORRES is pending. [facility] 36 Patient came into e office. Patient stated accidentally threw away belsomra blister pack in the trash. Patient is requesting a refill of medication. Patient stated has one more pill for tonight. Patient also wants to know, if can not get the medication will she have any symptoms? Please advise. [facility] 36 Last ov- 02/18/25 Next ov- 04/06/25 [place] [id number] 03-04-2025 36 Spoke with patient, her insurance is now [employer]. Pa has been started [facility] 36 Lm for patient to ca ll the office back, please transfer her back to the office when she calls back. [facility] 36 Name of caller: Pee hwang Contact phone number: [phone], option 2 Relationship to Patient: [facility] Provider: CHAD Spear CNP Practice: [facility] Chief Complaint/Reason for Call: Jaskaran is requesting a call back to schedule a delivery for patient's Botox. Please contact [employer] [facility] and advise. Best time of day caller can be reached: Any Patient advised that office/PCP has 24-48 business hours to return their call: Yes [facility] 36 Pa for Botox has bee n submitted on [employer] website, waiting on a determination [facility] 36on 02-18-2025 36 Per website, patient has select plan and no prior authorization is required for sleep study- PSG in lab. Normal [facility] Office Visiton 02-18-2025 Follow-up visit [id number] Jayson Michelle aquiles 1975 F Date Provider Department Center 02/18/2025 [id number] LR [facility] [place] None Family History Problem Relation Age of Onset Dementia Father Dementia Paternal Grandfather Alzheimer's disease Paternal Grandmother Parkinsonism Paternal Grandmother Family Status - Relation Status Age at Father Paternal Grandfather Paternal Grandmother Level of Service:29083 [place] OFFICE/OUTPATIENT ESTABLISHED MOD MDM 30 MIN Reason for Visit and Comments: Follow-up [497012] [facility] Progress Noteon 02-18-2025 Progress Note [facility] [address] [place] [address] [facility] [address] Dept: [phone] Dept Loc: [phone] Visit type: Established Patient Reason for Visit: Follow-up Assessment and Plan 1. Confusional arousals - Polysomnography 2. Sleep paralysis - Polysomnography 3. 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 Primary insomnia - suvorexant (Belsomra) 20 MG tablet; Take 1 tablet (20 mg) by mouth Nightly as needed for sleep. Do not start before December 17, 2024., Starting Fri02/18/2025, Until 03/20/2025 at 2359, Normal 5. Obstructive sleep apnea - Polysomnography Subjective HPI: She reports that her migraines are 12-16 migraine days per month with about 2 days per week of being in bed and unable to function (8 days per month). Her is deployed and there has been an increase in storms. The weather changes are a major factor. She reports that she has been having episodes of sleep paralysis. She reports that when her was home that he would shake her out of it, but she does not have him around. She reports that this started over a year ago. It's like I am stuck in a dream and cannot move. She is often gasping for air when this happens. The patient denies sleep paralysis. Snoring?No Tired? (Tired, Fatigued, or Sleepy during the daytime) Yes Observed? (Stop Breathing or Choking/Gasping during your sleep)Yes Pressure? (High blood pressure meds?)No Body Mass Index is 28 or greater?No Age greater than 50?No Neck size (Men >17 in, Women >16 in) No Gender Male?No REVIEW OF SYSTEMS: Review of Systems Constitutional: Negative for appetite change, chills, diaphoresis, fatigue, fever and unexpected weight change. HENT: Negative for dental problem and mouth sores. Eyes: Negative for discharge and itching. Respiratory: Negative for chest tightness and shortness of breath. Cardiovascular: Negative for chest pain, palpitations and leg swelling. Gastrointestinal: Positive for nausea. Negative for abdominal pain, rectal pain and vomiting. Endocrine: Negative for polydipsia, polyphagia and polyuria. Genitourinary: Negative for decreased urine volume, flank pain and genital sores. Musculoskeletal: Negative for arthralgias, back pain and neck pain. Skin: Negative for color change. Allergic/Immunologic: Negative for food allergies and immunocompromised state. Neurological: Positive for dizziness and headaches. Negative for weakness. Hematological: Negative for adenopathy. Does not bruise/bleed easily. Psychiatric/Behavioral: Positive for confusion. Negative for agitation, behavioral problems, decreased concentration, sleep disturbance and suicidal ideas. Allergies Allergen Reactions Amitriptyline Hallucinations Azithromycin Other reaction(s): GI Upset, GI Upset Erythromycin Base Other reaction(s): Nausea Gabapentin Other reaction(s): Swelling Hydrocodone Other reaction(s): Other Metoclopramide Anxiety and Palpitations Current Outpatient Medications: aspirin 81 MG oral suspension, , Disp: , Rfl: biotin 5000 MCG capsule, , Disp: , Rfl: cetirizine (ZyrTEC) 10 MG tablet, daily., Disp: , Rfl: Cholecalciferol (Vitamin D) 125 MCG (5000 UT) capsule, , Disp: , Rfl: dihydroergotamine (DHE) 1 MG/ML injection, Infuse 1 mg into a venous catheter Once., Disp: , Rfl: eptinezumab (Vyepti) 100 MG/ML injection, Infuse 3 mL (300 mg) into a venous catheter Every 3 months., Disp: 3 mL, Rfl: 3 famotidine (Pepcid) 20 MG tablet, famotidine 20 mg tablet, Disp: , Rfl: hydrOXYzine HCl (Atarax) 25 MG tablet, Take one or two tablets by mouth at bedtime as needed with suvorexant, Disp: 60 tablet, Rfl: 1 levonorgestrel (Mirena, 52 MG,) 20 MCG/DAY IUD, 1 each by IntraUTERine route., Disp: , Rfl: linaCLOtide (Linzess) 145 MCG capsule, Take 145 mcg by mouth every morning (before breakfast). Do not crush or chew., Disp: , Rfl: Magnesium 500 MG capsule, , Disp: , Rfl: Methylcobalamin 1000 MCG sublingual tablet, Mecobalamin (Vitamin B12) Active 1000 MCG SL DAILY February 12, 2022 11:[address]pm place tablet under tongue and allow to dissolve for at least30 secs before swallowing, Disp: , Rfl: omega-3 (fish oil) 1000 MG capsule, , Disp: , Rfl: onabotulinumtoxinA (Botox) 200 units injection, Provider to inject 200 units intramuscularly every 12 weeks for migraine prevention., Disp: 1 each, Rfl: 1 pancrelipase, Zli-Wxye-Dqag, (Zenpep) [id number] units capsule delayed-rele (more content not included)... Normal [facility] Progress Noteon 02-03-2025 Progress Note Patient tolerated in fusion well. Discharged home with father. Normal [facility] Progress Noteon 02-02-2025 Progress Note Patient tolerated in fusion well. Discharged home with father. Normal [facility] Progress Noteon 02-01-2025 Progress Note Patient tolerated in fusion well. Discharged home with father. Normal [facility] Gastroenterology Visit Repor ton 01-20-2025 Gastroenterology Visit Report [facility] [address] [place] [address] OFFICE VISIT Date of Service: 01/20/25 MR#: [id number] Acct: [id number] Name: AKIL MICHELLE Rep #: [id number] : 1975 Provider: Jamie Cuevas DO Age/Sex: 49/F Location: [facility] [place] Status: Signed Intake Vital Signs 04/07/24 06:28 12/24/24 11:13 01/20/25 14:32 Height 5 ft 1 in 5 ft 1 in 5 ft 1 in Weight: 112 lb BMI 21.1 Intake Visit Reasons: 6 M FU Allergies gabapentin Adverse Reaction (Intermediate, Verified 12/24/24 11:27) Swelling erythromycin base (Erythromycin Base) Adverse Reaction (Verified 12/24/24 11:27) Nausea hydrocodone bitartrate (From Vicodin) Adverse Reaction (Verified 12/24/24 11:27) Other Medications ???Medication ???Instructions ???Recorded ???Confirmed ???Type cholecalciferol (vitamin D3) 25 1,000 units PO DAILY supplement 01/20/25 History mcg (1,000 unit) tablet tizanidine 4 mg capsule 4 mg PO DAILY PRN PRN Migraine 06/0701/20/25 History Symptoms magnesium oxide 500 mg capsule 500 mg PO BID supplement 11/11/19 01/20/25 History aspirin 81 mg tablet,delayed 81 mg PO DAILY blood thinner 02/1301/20/25 History release eptinezumab-jjmr 100 mg/mL 100 mg .Route [id number] migraines 0 02/13/22 01/20/25 History intravenous solution (Vyepti) levonorgestrel (Mirena) 1 device intrauterine ONCE 0 02/13/22 01/20/25 History control omega-3 fatty acids-vitamin E 1,000 cap PO DAILY supplement 050 12/1101/20/25 History 1,000 mg capsule promethazine 25 mg tablet 25 mg PO PRN PRN Nausea 02/18/22 0 01/20/25 History topiramate 200 mg tablet 50 mg PO QHS migraine 05/29/2201/11 History Qulipta 60 mg PO/SL DAILY migraines 01/20/25 History Zyrtec 20 mg PO/SL QHS allergies 12/18/22 01/20/25 History levomefolate calcium 15 mg tablet 15 mg PO DAILY supplement 3 01/20/25 History (L-Methylfolate) suvorexant 20 mg tablet (Belsomra) 20 mg PO HS 01/13/23 01/20/25 Hi story famotidine 20 mg tablet 20 mg PO QHS #30 tabs 10/01/2401/11 Rx linaclotide 145 mcg capsule 145 mcg PO DAILY #30 caps 11/29/24 01/20/25 Rx (Linzess) methylprednisolone 4 mg tablets in 4 mg PO QDAY #21 tabs 01/20/25 0 01/20/25 Rx a dose pack (Medrol (Chad)) PFSH Medical History History of Clostridium difficile infection Anxiety Difficulty swallowing Port-A-Cath in place Right upper lobe pulmonary nodule Acute maxillary sinusitis, unspecified Contact with or exposure to other viral diseases URI (upper respiratory infection) Headache, migraine Alcohol use Easy bruising Blackout Syncope Non-smoker History of echocardiogram History of Holter monitoring Cardiology follow-up encounter Anxiety Insomnia Hemiplegic migraine Bradycardia Mycobacterial pneumonia DUB (dysfunctional uterine bleeding) Migraines History of kidney stones Choledocholithiasis Cholelithiasis Surgical History History of arthroscopy of shoulder History of cystoscopy History of esophagogastroduodenoscopy (EGD) History of lithotripsy H/O unilateral oophorectomy History of bilateral salpingectomy History of cholecystectomy Family History Father MVP (mitral valve prolapse) Social History household members: spouse housing: house Smoking Status: Never smoker alcohol intake: never substance use type: does not use HPI HPI Details: AKIL MICHELLE, is a 49 F who presents to the office today for follow up. PMH migraines managed with Topamax, ubrevly and viepti infusions. PSH hysteroscopy 06.15.20, cholecystectomy 1.16, fissurectomy, facial nerve surgery for hemiplegic migraines, port placement. CT abd/pel 08.29.20 finding a cyst of the left ovary. Imaging reviewed and stomach noted to be enlarged with food contents. *BGI established 12.24.21 with referral from PCP for evaluation of recurrent and persistent hiccups. Since 2018 she has been getting hiccups 6-7 times a day with a feeling of illness. ? Gastric emptying study 02.07.22 finding markedly delayed gastric emptying. ? 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 Protonix 40mg Taper. OV 03.07.22 without repeat episodes of hiccups. Biochemical workup ESR, LDH, CRP, TSH, T3, T4, celiac, PEP, FERNANDA, globulin, GAME, ROB, ARNEL comp without remarkable results. OV 8..22 Start linzess 72mcg OV 11..22 She has periods of time that are better and times that are (more content not included)... Normal [facility] 3601-12-2025 36 Patient [employer]-care is primary insurance. Botox and vyepti will be B&B auths will need to be obtained before next infusion and appointment on 04/06/25 [facility] Progress Noteon 01-12-2025 Progress Note Pt. Here for vyepti infusion, labs were not ordered. 1114-Ordered treatment completed. Patient discharged without any issues. Patient has a copy of next infusion appointment and verbalizes understanding. All questions answered. [facility] 36on 01-06-2025 36 Vyepti will be suppl ied by us at [facility] and delivered to the MD office once an appointment has been scheduled for the patient. Please reach out to patient to schedule Infusion on/after 01/13/25, and please let [facility] know [facility] once patient is scheduled. Thanks! VYEPTI IS PATIENT SUPPLIED!!! [facility] 36on 01-03-2025 36 Vyepti was approved from 12/30/24 - 12/29/25 through [facility] [phone]. January [facility] Progress Noteon 12-30-2024 Progress Note Patient tolerated in fusion well. Discharged home with father. [facility] 36on 12-29-2024 36 Appeal faxed @[phone]. [facility] Progress Noteon 12-29-2024 Progress Note Patient tolerated in fusion well. Discharged home with father. [facility] 36on 12-28-2024 36 I wrote a letter [facility] 36 Patient next vyepti is 01/04/25 and it is still denied, patient is going to have to reschedule Can you please write an appeal letter for the vyepti. Botox was approved. Please advise [facility] Progress Noteon 12-28-2024 Progress Note Patient tolerated in fusion well. Discharged home with father. [facility] Urgent Care Visit Reporton 0 12-24-2024 Urgent Care Visit Report [facility] [address], [address] [place] [address] OFFICE VISIT Date of Service: 12/24/24 MR#: [id number] Acct: [id number] Name: AKIL MICHELLE Rep #: [id number] : 1975 Provider: STEF lauren Age/Sex: 49/F [place] [facility] [place] Status: Signed Intake Vital Signs 04/07/24 06:28 12/24/24 11:13 Height 5 ft 1 in 5 ft 1 in Weight: 120 lb 6 oz BMI 22.7 BP 102/60 Position Sitting Pulse 84 Temp 99.3 F H Temp Source Oral Pulse Oximetry (%) 97 Oxygen Delivery Method room air Intake Visit Reasons: congestion Accompanied by: Self Allergies gabapentin Adverse Reaction (Intermediate, Verified 12/24/24 11:27) Swelling erythromycin base (Erythromycin Base) Adverse Reaction (Verified 12/24/24 11:27) Nausea hydrocodone bitartrate (From Vicodin) Adverse Reaction (Verified 12/24/24 11:27) Other Medications ???Medication ???Instructions ???Recorded ???Confirmed ???Type cholecalciferol (vitamin D3) 25 1,000 units PO DAILY supplement 12/24/24 History mcg (1,000 unit) tablet tizanidine 4 mg capsule 4 mg PO DAILY PRN PRN Migraine 06/0712/24/24 History Symptoms magnesium oxide 500 mg capsule 500 mg PO BID supplement 11/11/19 12/24/24 History aspirin 81 mg tablet,delayed 81 mg PO DAILY blood thinner 02/1312/24/24 History release eptinezumab-jjmr 100 mg/mL 100 mg .Route [id number] migraines 0 02/13/22 12/24/24 History intravenous solution (Vyepti) levonorgestrel (Mirena) 1 device intrauterine ONCE 0 02/13/22 12/24/24 History control omega-3 fatty acids-vitamin E 1,000 cap PO DAILY supplement 12/1112/24/24 History 1,000 mg capsule promethazine 25 mg tablet 25 mg PO PRN PRN Nausea 02/18/22 0 12/24/24 History topiramate 200 mg tablet 50 mg PO QHS migraine 05/29/2205/13 History Qulipta 60 mg PO/SL DAILY migraines 12/24/24 History Zyrtec 20 mg PO/SL QHS allergies 12/18/22 12/24/24 History levomefolate calcium 15 mg tablet 15 mg PO DAILY supplement 3 12/24/24 History (L-Methylfolate) suvorexant 20 mg tablet (Belsomra) 20 mg PO HS 01/13/23 12/24/24 Hi story famotidine 20 mg tablet 20 mg PO QHS #30 tabs 10/01/2405/13 Rx linaclotide 145 mcg capsule 145 mcg PO DAILY #30 caps 11/29/24 12/24/24 Rx (Linzess) Nurse's Note: Patient has congestion, pressure in her ears, coughing and tightness in chest. Patient has a fever on wed with Body aches. Patient has irritation in her throat from drainage. [facility] Medical History History of Clostridium difficile infection Anxiety Difficulty swallowing Port-A-Cath in place Right upper lobe pulmonary nodule Acute maxillary sinusitis, unspecified Contact with or exposure to other viral diseases URI (upper respiratory infection) Headache, migraine Alcohol use Easy bruising Blackout Syncope Non-smoker History of echocardiogram History of Holter monitoring Cardiology follow-up encounter Anxiety Insomnia Hemiplegic migraine Bradycardia Mycobacterial pneumonia DUB (dysfunctional uterine bleeding) Migraines History of kidney stones Choledocholithiasis Cholelithiasis Surgical History History of arthroscopy of shoulder History of cystoscopy History of esophagogastroduodenoscopy (EGD) History of lithotripsy H/O unilateral oophorectomy History of bilateral salpingectomy History of cholecystectomy Family History Father MVP (mitral valve prolapse) Social History household members: spouse housing: house Smoking Status: Never smoker alcohol intake: never substance use type: does not use HPI HPI Details: AKIL MICHELLE, is a 49 F who presents to the office today for concerns regarding congestion, ear pain, cough, and 1 day of a fever. She also acknowledges intermittent chest tightness and backaches. Prior to evaluation respiratory viral panel testing. She acknowledges post nasal drainage. This has been ongoing for two days. She feels this to be worsening. Flu A B and COVID-19 was negative. ROS Const Constitutional: Positive for body ache, fever(s) (Tmax: 102) and abnormal sleep pattern; No chills, fatigue, headache(s) or change in appetite Eyes Eyes: No blurry vision, change in vision, double vision, irritation, discharge, vision loss, dry eyes, bulging eyes, floaters, visual disturbances, eye pain, Light sensitivity, spots in vision, tunnel vision or other ENT ENT: Positive for ear or mastoid pain (bilateral), ear pressure, tinnitus, nasal congestion, sinus pressure, sinus pain, nasal dis (more content not included)... [facility] 36on 12-06-2024 36 Can you please write an appeal letter for the vyepti. Botox was approved. Please advise [facility] 36on 12-01-2024 36 Call to [facility]. Spoke with Francisca. Francisca is wanting to schedule delivery to the office for Botox. Clarifed office address with Francisca. Office has scheduled delivery. Francisca repeated back and verbalized understanding. Patient's Botox will Ship on 12/21/2024. [facility] pharmacy phone number- [phone]. [facility] 36 Spoke to Emeli and she states Botox was approved through pt insurance and the insurance company will be setting up delivery to office. IT IS PT SUPPLIED [facility] Progress Noteon 12-01-2024 Progress Note Patient tolerated in fusion well. Discharged home with [facility] 36on 11-29-2024 36 does not paul e primary till january [address] [facility] 36on 11-26-2024 36 PA approved for boto x through [employer]. She must use [facility] , . Copay will be $0 11/24/24-06/18/25 Auth #[id number] Medication Pended for signature, will be patient supplied to the office. This pharmacy should reach out to the office to coordinate delivery prior to her botox appt Patient likely to have new insurance for appts after this fill so we wont have to use [facility] for further Pas. Thank you! [facility] 36 During all of this b ack and fourth with the patient and insurance. She told us prior to her 11/19/24 appointment [employer] was to become primary starting 12/09/24. However the day of her appointment she told us that [employer] would be primary till mid december which was after her next botox and vyepti. So we had to submit a pa for both. On 11/19/24 both vyepti pa [facility]. 11/22/2024 received a letter for botox stating that botox is excluded and must be sourced through [employer] program. I spoke with emeli who helped me with this. 11/25/24- vyepti was denied [facility] 36on 11-25-2024 36 So looks like we nee d to wait until 12/09 to submit PA's for Vyepti and Botox. [facility] 36 Anything we can do t o help keep her on the Vyepti+Botox regimen? It's the only one that has worked and I have tried EVERYTHING. [facility] 36 Pt Vyepti was denied due to the fact when used conjunction with Botox. [facility] 36on 11-24-2024 36 Faxed chart notes fo r the second time to [facility] as requested [facility] 36 Name of caller: Yonathan rodriguez Contact phone number: [phone] Relationship to Patient: [facility] Provider: Dr Lr Practice: [facility] Neuro Chief Complaint/Reason for Call: Kiley with [employer] called in again stating she was still working on prior authorization for patient for her Ubrelvy. Stated that she still needs office visit notes faxed to her at [phone]. Please advise. Best time of day caller can be reached: any Patient advised that office/PCP has 24-48 business hours to return their call: N/A [facility] Office Visiton 11-19-2024 Follow-up visit [id number] Jayson Michelle 1975 F Date Provider Department Center 11/19/2024 [id number] None Family History Problem Relation Age of Onset Dementia Father Dementia Paternal Grandfather Alzheimer's disease Paternal Grandmother Parkinsonism Paternal Grandmother Family Status - Relation Status Age at Father Paternal Grandfather Paternal Grandmother Level of Service:23284 [place] OFFICE/OUTPATIENT ESTABLISHED MOD MDM 30 MIN Reason for Visit and Comments: Follow-up [489248] [facility] Progress Noteon 11-19-2024 Progress Note [facility] [address] [facility] [address] Dept: [phone] Dept Loc: [phone] Visit type: Established Patient Reason for Visit: Follow-up Assessment and Plan 1. Primary insomnia - suvorexant (Belsomra) 20 MG tablet; Take 1 tablet (20 mg) by mouth Nightly as needed for sleep. Do not start before December 17, 2024., Starting Fri12/17/2024, Until 01/16/2025 at 2359, Normal 2. 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 She is concerned because her is about to deploy. She reports that she is at 12-16 migraine days per month. That is up from 8 days per month, but with her about to deploy she is more anxious. She is doing mindfulness as well as Belsomra to control her insomnia. It was working but the impending deployment makes her worse now. NO passing out. REVIEW OF SYSTEMS: Review of Systems Constitutional: Negative for appetite change, chills, diaphoresis, fatigue, fever and unexpected weight change. HENT: Negative for dental problem and mouth sores. Eyes: Negative for discharge and itching. Respiratory: Negative for chest tightness and shortness of breath. Cardiovascular: Negative for chest pain, palpitations and leg swelling. Gastrointestinal: Positive for nausea. Negative for abdominal pain, rectal pain and vomiting. Endocrine: Negative for polydipsia, polyphagia and polyuria. Genitourinary: Negative for decreased urine volume, flank pain and genital sores. Musculoskeletal: Negative for arthralgias, back pain and neck pain. Skin: Negative for color change. Allergic/Immunologic: Negative for food allergies and immunocompromised state. Neurological: Positive for dizziness and headaches. Negative for weakness. Hematological: Negative for adenopathy. Does not bruise/bleed easily. Psychiatric/Behavioral: Positive for confusion. Negative for agitation, behavioral problems, decreased concentration, sleep disturbance and suicidal ideas. Allergies Allergen Reactions Amitriptyline Hallucinations Azithromycin Other reaction(s): GI Upset, GI Upset Erythromycin Base Other reaction(s): Nausea Gabapentin Other reaction(s): Swelling Hydrocodone Other reaction(s): Other Metoclopramide Anxiety and Palpitations Current Outpatient Medications: aspirin 81 MG oral suspension, , Disp: , Rfl: biotin 5000 MCG capsule, , Disp: , Rfl: cetirizine (ZyrTEC) 10 MG tablet, daily., Disp: , Rfl: Cholecalciferol (Vitamin D) 125 MCG (5000 UT) capsule, , Disp: , Rfl: dihydroergotamine (DHE) 1 MG/ML injection, Infuse 1 mg into a venous catheter Once., Disp: , Rfl: eptinezumab (Vyepti) 100 MG/ML injection, Infuse 3 mL (300 mg) into a venous catheter Every 3 months., Disp: 3 mL, Rfl: 3 famotidine (Pepcid) 20 MG tablet, famotidine 20 mg tablet, Disp: , Rfl: levonorgestrel (Mirena, 52 MG,) 20 MCG/DAY IUD, 1 each by IntraUTERine route., Disp: , Rfl: linaCLOtide (Linzess) 145 MCG capsule, Take 145 mcg by mouth every morning (before breakfast). Do not crush or chew., Disp: , Rfl: Magnesium 500 MG capsule, , Disp: , Rfl: Methylcobalamin 1000 MCG sublingual tablet, Mecobalamin (Vitamin B12) Active 1000 MCG SL DAILY February 12, 2022 11:[address] place tablet under tongue and allow to dissolve for at least30 secs before swallowing, Disp: , Rfl: omega-3 (fish oil) 1000 MG capsule, , Disp: , Rfl: onabotulinumtoxinA (Botox) 100 units injection, Botox 100 unit injection, Disp: , Rfl: pancrelipase, Gau-Vuhi-Blyu, (Zenpep) [id number] units capsule delayed-release particles capsule, , Disp: , Rfl: pancrelipase, Jpi-Ioft-Kpok, (Zenpep) [id number] units capsule delayed-release particles capsule, , Disp: , Rfl: pantoprazole (ProtoNix) 40 MG EC tablet, pantoprazole 40 mg tablet,delayed release, Disp: , Rfl: suvorexant (Belsomra) 20 MG tablet, Take 1 tablet (20 mg) by mouth Nightly as needed for sleep. Do not start before February 19, 2024., Disp: 30 tablet, Rfl: 2 tiZANidine (Zanaflex) 4 MG tablet, Take 1 tablet (4 mg) by mouth every 6 hours as needed (neck pain)., Disp: 90 tablet, Rfl: 3 topiramate (Topamax) 100 MG tablet, Take 1 tablet (100 mg) by mouth Nightly., Disp: 90 tablet, Rfl: 3 Atogepant (Qulipta) 60 MG tablet, Take 1 tablet by mouth daily., Disp: 30 tablet, Rfl: 11 hydrOXYzine HCl (Atarax) 25 MG tablet, Take one or two tabs po at bedtime prn with suvorexant, Disp: 60 tablet, Rfl: 1 [START ON 12/17/2024] bergman (more content not included)... [facility] 36on 11-17-2024 36 Name of caller: Yonathan rodriguez Contact phone number: [phone] Relationship to Patient: Ko Provider: Dr Lr Practice: [facility] Neuro Chief Complaint/Reason for Call: Kiley with [employer] called in advising she was working on prior authorization for Ubrelvy for patient, and needs updated office visit notes faxed into her. States last OV notes she has are from 2022. Notes can be faxed in to them at [phone]. Please advise. Best time of day caller can be reached: any Patient advised that office/PCP has 24-48 business hours to return their call: N/A [facility] 36 will be prim valentina starting 12/09. Will wait to complete pa [facility] 36 Lm for patient to ca ll the office back, please transfer her back to the office when she calls back. [facility] 36on 11-16-2024 36 Shreya called our off ice back. PA needs submitted through [employer]. Ph. [phone] [facility] 36 Clinical information faxed over to Shreya at [phone] [facility] 36 I called pt's insura zurie, PA is started. Ref # [id number] Shreya (brewery representative) needs clinical info faxed to [phone]. [facility] 36on 11-11-2024 [address] [facility] 36 Lm for patient to ca ll the office back, please transfer her back to the office when she calls back. [facility] 36 Name of Caller: Yonathan winter Contact Reason for Appointment: Pt has a botox procedure scheduled on 12/28/24 with Iron and would like to reschedule that appointment. Please assist with rescheduling Office Name: Neurology Medication Refills need, if any: n/a Medication Name: n/a [facility] 36on 11-09-2024 36 Patients [facility] requires Vyepti to be submitted to medical benefit, thank you! [facility] Progress Noteon 11-03-2024 Progress Note Patient tolerated in fusion well. Discharged home with [facility] Progress Noteon 11-02-2024 Progress Note Patient tolerated in fusion well. Discharged home with [facility] Progress Noteon 11-01-2024 Progress Note Patient tolerated in fusion well. Discharged home with [facility] 36on 10-04-2024 36 Belsomra 20mg is lidia wing available to order as of today. [facility] will order the medication with expected delivery date of 10/07. If we run into any issues we will communicate them SAMPSON. Rx has been pended. [facility] Progress Noteon 10-04-2024 Progress Note Pt here for Vyepti e very 12 weeks. Port accessed with brisk blood return. No labs ordered/drawn today. Assessment and plan of care reviewed. See toxicity assessment. Tolerated treatment well. Calendar updated and pt aware of next appointment. Port de accessed and pt discharged to home in no acute distress. [facility] Progress Noteon 09-29-2024 Progress Note Patient tolerated in fusion well. Discharged home with Normal [facility] Progress Noteon 09-28-2024 Progress Note Patient tolerated in fusion well. Discharged home with Normal [facility] Progress Noteon 09-27-2024 Progress Note Patient tolerated in fusion well. Discharged home with Normal [facility] Progress Noteon 08-26-2024 Progress Note Patient tolerated in fusion well. Discharged home with father. [facility] Progress Noteon 08-25-2024 Progress Note Patient tolerated in fusion well. Discharged home with father. [facility] Progress Noteon 08-24-2024 Progress Note Patient tolerated in fusion well. Discharged home with father. [facility] Gastroenterology Visit Repor ton 08-17-2024 Gastroenterology Visit Report [facility]enter[facility] [address] [place] [address] OFFICE VISIT Date of Service: 08/17/24 MR#: [id number] Acct: [id number] Name: AKIL MICHELLE Rep #: [id number] : 1975 Provider: Jamie Cuevas DO Age/Sex: 49/F [place] [facility] [place] Status: Signed Intake Vital Signs 01/13/23 14:28 04/07/24 06:28 Height 5 ft 1 in 5 ft 1 in Intake Visit Reasons: 5 M FU Allergies gabapentin Adverse Reaction (Intermediate, Verified 04/07/24 06:26) Swelling erythromycin base (Erythromycin Base) Adverse Reaction (Verified 04/07/24 06:26) Nausea hydrocodone bitartrate (From Vicodin) Adverse Reaction (Verified 04/07/24 06:26) Other Medications ???Medication ???Instructions ???Recorded ???Confirmed ???Type cholecalciferol (vitamin D3) 25 1,000 units PO DAILY supplement 12/25/18 08/17/24 History mcg (1,000 unit) tablet tizanidine 4 mg capsule 4 mg PO DAILY PRN PRN Migraine 12/25/18 08/17/24 History Symptoms magnesium oxide 500 mg capsule 500 mg PO BID supplement 11/11/19 08/17/24 History aspirin 81 mg tablet,delayed 81 mg PO DAILY blood thinner 02/13/22 08/17/24 History release eptinezumab-jjmr 100 mg/mL 100 mg .Route [id number] migraines 02/13/22 08/17/24 History intravenous solution (Vyepti) levonorgestrel 21 mcg/24 hr (up to 1 device intrauterine ONCE 02/13/22 08/17/24 History 8 years) 52 mg intrauterine device control (Mirena) omega-3 fatty acids-vitamin E 1,000 cap PO DAILY supplement 02/18/22 08/17/24 History 1,000 mg capsule promethazine 25 mg tablet 25 mg PO PRN PRN Nausea 02/18/22 08/17/24 History topiramate 200 mg tablet 50 mg PO QHS migraine 05/29/22 08/17/24 History Qulipta 60 mg PO/SL DAILY migraines 12/18/22 08/17/24 History Zyrtec 20 mg PO/SL QHS allergies 12/18/22 08/17/24 History levomefolate calcium 15 mg tablet 15 mg PO DAILY supplement 12/18/22 08/17/24 History (L-Methylfolate) suvorexant 20 mg tablet (Belsomra) 20 mg PO HS 01/13/23 08/17/24 History famotidine 20 mg tablet 20 mg PO QHS #30 tabs 10/07/23 08/17/24 Rx pantoprazole 40 mg tablet,delayed 40 mg PO QAM 03/16/24 08/17/24 History release (Protonix) linaclotide 145 mcg capsule 145 mcg PO DAILY #30 caps 06/25/24 08/17/24 Rx (Linzess) PFSH Medical History History of Clostridium difficile infection Anxiety Difficulty swallowing Port-A-Cath in place Right upper lobe pulmonary nodule Acute maxillary sinusitis, unspecified Contact with or exposure to other viral diseases URI (upper respiratory infection) Headache, migraine Alcohol use Easy bruising Blackout Syncope Non-smoker History of echocardiogram History of Holter monitoring Cardiology follow-up encounter Anxiety Insomnia Hemiplegic migraine Bradycardia Mycobacterial pneumonia DUB (dysfunctional uterine bleeding) Migraines History of kidney stones Choledocholithiasis Cholelithiasis Surgical History History of arthroscopy of shoulder History of cystoscopy History of esophagogastroduodenoscopy (EGD) History of lithotripsy H/O unilateral oophorectomy History of bilateral salpingectomy History of cholecystectomy Family History Father MVP (mitral valve prolapse) Social History household members: spouse housing: house Smoking Status: Never smoker alcohol intake: never substance use type: does not use HPI HPI Details: AKIL MICHELLE, is a 49 F who presents to the office today for follow up. PMH migraines managed with Topamax, ubrevly and viepti infusions. PSH hysteroscopy 06.15.20, cholecystectomy 10.20.15, fissurectomy, facial nerve surgery for hemiplegic migraines, port placement. CT abd/pel 08.29.20 finding a cyst of the left ovary. Imaging reviewed and stomach noted to be enlarged with food contents. *BGI established .05.10 with referral from PCP for evaluation of recurrent and persistent hiccups. Since 2018 she has been getting hiccups 6-7 times a day with a feeling of illness. ? Gastric emptying study 02.07.22 finding markedly delayed gastric emptying. ? 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 Protonix 40mg Taper. OV 03.07.22 without repeat episodes of hiccups. Biochemical workup ESR, LDH, CRP, TSH, T3, T4, celiac, PEP, FERNANDA, globulin, GAME, ROB, ARNEL comp without remarkable results. OV 8.08.10 Start linzess 72mcg OV 11.12.11 She has periods of time that are better and times that are worse. 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 [facility] 36on 08-10-2024 36 Pt [facility] Progress Noteon 07-28-2024 Progress Note Patient tolerated in fusion well. Discharged home with [facility] Progress Noteon 07-27-2024 Progress Note Patient tolerated in fusion well. Discharged home with [facility] Progress Noteon 07-26-2024 Progress Note Patient tolerated in fusion well. Discharged home with [facility] Progress Noteon 07-12-2024 Progress Note Pt. Here for vyepti infusion, labs were not ordered. 1218-Ordered treatment completed. Patient discharged without any issues. Patient has a copy of next infusion appointment and verbalizes understanding. All questions answered. [facility] 36on 07-08-2024 36 Botox has been appro jaz 07/07/24-10/06/24 [facility] 36on 07-02-2024 36 Botox pa renewal has been faxed to [facility] on a determination [facility] Progress Noteon 06-24-2024 Progress Note Patient tolerated in fusion well. Discharged home with [facility] Progress Noteon 06-23-2024 Progress Note Patient tolerated in fusion well. Discharged home with [facility] Progress Noteon 06-22-2024 Progress Note Patient tolerated in fusion well. Discharged home with [facility] 36on 06-14-2024 36 Refills for Hydroxyz ine sent [facility] 36on 06-01-2024 36 Patient has been rescheduled [facility] 36 Name of Caller: Yonathan winter Contact Reason for Appointment: Patient's Botox was rescheduled for 06-07-2024 at 12:30pm - patient apologizes but due to transportation would like to be rescheduled for 06/14 or 06/15 anytime/any provider. Patient has given permission to text new appointment and again apologizes Office Name: Neuro Medication Refills need, if any: na Medication Name: na [facility] 36 Patient has been rescheduled [facility] 36on 05-31-2024 36 Name of Caller: Yonathan winter Contact Reason for Appointment: Akil called to reschedule her botox on 06/16/24. Her is being deployed and she is unavailable that day. Please call to reschedule. Please advise. Office Name: Neuro [facility] Progress Noteon 05-12-2024 Progress Note Patient tolerated in fusion well. Discharged home with [facility] Progress Noteon 05-11-2024 Progress Note Patient tolerated in fusion well. Discharged home with [facility] Progress Noteon 05-10-2024 Progress Note Patient tolerated in fusion well. Discharged home with [facility] 36on 04-21-2024 36 Patient has been rescheduled [facility] 36 Name of caller: Yonathan winter Contact phone number: [phone] Relationship to Patient: patient Provider: Lorenzo Lr MD Practice: [facility] NEURO Chief Complaint/Reason for Call: Patient is requesting a call back to reschedule 05/07/24 Botox procedure. Please advise. Best time of day caller can be reached: Any Patient advised that office/PCP has 24-48 business hours to return their call: N/A [facility] CNCOon 04-08-2024 CNCO HNO ID: [id number] Author: COORDINATOR, MAMMOGRAPHY, ? Service: ? Author Type: Physician Type: Letter Filed: 04/08/2024 17:00 Note Text: April 08, 2024 PID: [id number] Akil [address] [place] [address] Dear Ms. Michelle, We are pleased to inform you that the results of your recent breast imaging exam on 04/08/2024 are normal. Early detection of cancer is very important. We also understand recommendations regarding breast cancer screening are controversial. Please discuss with your primary care provider which strategy is best for you and whether a mammogram is right for you. Your imaging studies and report will be kept on file at [facility] as part of your permanent medical record and are available for your continuing care. Thank you for allowing us to help in meeting your health care needs. Sincerely, Dr. Bailey Interpreting Radiologist [facility] (Normal over 40) Normal [facility] DBT Breast - bilateral walter sue 04-08-2024 IMPRESSION: NEGATIVE There is no mammographic evidence of malignancy. A 1 year screening mammogram is recommended. Danisha dominguez/ravi:04/08/2024 17:00:31 Labor Economics Teacher(s): RT Bebe(R)(M), [facility] letter sent: Normal over 40 Mammogram BI-RADS: 1 Negative Multiple national specialty organizations have released breast cancer screening guidelines for women at average risk for developing breast cancer - guidelines that are based on both evidence and opinion, yet differ on when to start and how often to screen for breast cancer. With representation from Breast Imaging, Internal Medicine, Women's Health, Family Medicine, and Medical/Surgical Oncology, the [facility] has carefully reviewed the data and reached the following consensus: 1) All women should engage in shared decision-making with their providers to decide when to start and how often to screen; 2) All women should have the opportunity to start screening mammography at age 40; 3) For women ages 45-55, we recommend annual screening mammograms; 4) For women ages 55 and over, we support both the transition from an annual to a biennial interval if this aligns more with patient's values and preferences, or continuation with annual screening; 5) All women should discuss with their providers when to stop screening mammograms. Automatic Data Processing Planner: Ravi Transcribe Date/Time: Apr 08 2024 8:56A Dictated by: DANISHA BAILEY MD This examination was interpreted and the report reviewed and electronically signed by: DANISHA BAILEY MD on Apr 08 2024 5:00PM [facility] DIVISION OF RADIOLOGY * * *Final Report* * * DATE OF EXAM: Apr 08 2024 9:16AM [facility] 0582 - [facility] SCREENING W ARTI / PROCEDURE REASON: multiple diagnoses * * * * Physician Interpretation * * * * RESULT: #[id number] - ISAIAS SCREENING W ARTI BILATERAL DIGITAL SCREENING MAMMOGRAM TOMOSYNTHESIS WITH CAD: 04/08/2024 HISTORY: /Screening Mammogram with ARTI - patient reports NO breast symptoms /priors available for comparison Multiple Diagnoses. RESULT: TECHNIQUE: The study was acquired using full field digital technology and interpreted from soft copy. Digital Breast Tomosynthesis (DBT) images were obtained and used to assist in the interpretation of this examination. Current study was also evaluated with a Computer Aided Detection (CAD). Comparison is made to exams dated: 01/10/2023 mammogram, 12/13/2021 mammogram, and 11/29/2020 mammogram - [facility]. There are scattered areas of fibroglandular density. No significant masses, calcifications, or other findings are seen in either breast. There has been no significant interval change. DIVISION OF RADIOLOGY Provider, [facility] - 04/08/2024 * * *Final Report* * * DATE OF EXAM: Apr 08 2024 9:16AM [facility] [id number] - [facility] SCREENING W ARTI / PROCEDURE REASON: multiple diagnoses * * * * Physician Interpretation * * * * RESULT: #[id number] - [facility] SCREENING W ARTI BILATERAL DIGITAL SCREENING MAMMOGRAM TOMOSYNTHESIS WITH CAD: 04/08/2024 HISTORY: /Screening Mammogram with ARTI - patient reports NO breast symptoms /priors available for comparison Multiple Diagnoses. RESULT: TECHNIQUE: The study was acquired using full field digital technology and interpreted from soft copy. Digital Breast Tomosynthesis (DBT) images were obtained and used to assist in the interpretation of this examination. Current study was also evaluated with a Computer Aided Detection (CAD). Comparison is made to exams dated: 01/10/2023 mammogram, 12/13/2021 mammogram, and 11/29/2020 mammogram - [facility]. There are scattered areas of fibroglandular density. No significant masses, calcifications, or other findings are seen in either breast. There has been no significant interval change. IMPRESSION IMPRESSION: NEGATIVE There is no mammographic evidence of malignancy. A 1 year screening mammogram is recommended. Danisha dominguez/arvi:04/08/2024 17:00:31 Labor Economics Teacher(s): RT Bebe(Connie)(M), [facility] letter sent: Normal over 40 Mammogram BI-RADS: 1 Negative Multiple national specialty organizations have released breast cancer screening guidelines for women at average risk for developing breast cancer - guidelines that are based on both evidence and opinion, yet differ on when to start and how often to screen for breast cancer. With representation from Breast Imaging, Internal Medicine, Women's Health, Family Medicine, and Medical/Surgical Oncology, the [facility] has carefully reviewed the data and reached the following consensus: 1) All women should engage in shared decision-making with their providers to decide when to start and how often to screen; 2) All women should have the opportunity to start screening mammography at age 40; 3) For women ages 45-55, we recommend annual screening mammograms; 4) For women ages 55 and over, we support both the transition from an annual to a biennial interval if this aligns more with patient's values and preferences, or continuation with annual screening; 5) All women should discuss with their providers when to stop screening mammograms. Automatic Data Processing Planner: Ravi Transcribe Date/Time: Apr 08 2024 8:56A Dictated by: DANISHA BAILEY MD This examination was interpreted and the report reviewed and electronically signed by: DANISHA BAILEY MD on Apr 08 2024 5:00PM EST [facility] Radiology Study observation (narrative) [facility] DBT Breast - bilateral scree ningOrdered By: [facility] Provider on 04-08-2024 [facility] ISAIAS SCREENING W TOMOon 04-08 ISAIAS SCREENING W ARTI * * *Final Report* * * DATE OF EXAM: Apr 08 2024 9:16AM [facility] [id number] - ISAIAS SCREENING W ARTI / PROCEDURE REASON: multiple diagnoses * * * * Physician Interpretation * * * * RESULT: #[id number] - ISAIAS SCREENING W ARTI BILATERAL DIGITAL SCREENING MAMMOGRAM TOMOSYNTHESIS WITH CAD: 04/08/2024 HISTORY: /Screening Mammogram with ARTI - patient reports NO breast symptoms /priors available for comparison Multiple Diagnoses. RESULT: TECHNIQUE: The study was acquired using full field digital technology and interpreted from soft copy. Digital Breast Tomosynthesis (DBT) images were obtained and used to assist in the interpretation of this examination. Current study was also evaluated with a Computer Aided Detection (CAD). Comparison is made to exams dated: 01/10/2023 mammogram, 12/13/2021 mammogram, and 11/29/2020 mammogram - [facility]. There are scattered areas of fibroglandular density. No significant masses, calcifications, or other findings are seen in either breast. There has been no significant interval change. IMPRESSION: NEGATIVE There is no mammographic evidence of malignancy. A 1 year screening mammogram is recommended. Danisha dominguez/ravi:04/08/2024 17:00:31 Labor Economics Teacher(s): RT Bebe(Connie)(Prieto), [facility] letter sent: Normal over 40 Mammogram BI-RADS: 1 Negative Multiple national specialty organizations have released breast cancer screening guidelines for women at average risk for developing breast cancer - guidelines that are based on both evidence and opinion, yet differ on when to start and how often to screen for breast cancer. With representation from Breast Imaging, Internal Medicine, Women's Health, Family Medicine, and Medical/Surgical Oncology, the [facility] has carefully reviewed the data and reached the following consensus: 1) All women should engage in shared decision-making with their providers to decide when to start and how often to screen; 2) All women should have the opportunity to start screening mammography at age 40; 3) For women ages 45-55, we recommend annual screening mammograms; 4) For women ages 55 and over, we support both the transition from an annual to a biennial interval if this aligns more with patient's values and preferences, or continuation with annual screening; 5) All women should discuss with their providers when to stop screening mammograms. Automatic Data Processing Planner: Ravi Transcribe Date/Time: Apr 08 2024 8:56A Dictated by: DANISHA BAILEY MD This examination was interpreted and the report reviewed and electronically signed by: DANISHA BAILEY MD on Apr 08 2024 5:00PM EST [id number] Normal [facility] CNOVon 12-11-2023 CNOV Office Visit (OBGYWM ) AKIL MICHELLE ([id number]) 1975 F Date Time Provider Department 12/11/23 9:00 ANT BOWEN OBGYWM During your visit today, we recorded the following information about you: Pulse Respiration Blood pressure Weight 60/minute 14/minute 116/66 57.2 kg Height 1.575 m Ant Xavier MD 12/11/2023 12:14 PM Signed First Leveler offered: Patient declinesDamion Brown is a 48 year old who presents for an annual gynecologic exam without complaints. Menses: no menses - Mirena IUD. 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 Xavier INSERTION OF IUD 06/15/2020 Mirena IUD insertion LAP CHOLECYSTECT/CHOLANGIOGRAPH Y 1-1-16 LAPAROSCOPY DIAGNOSTIC 09/21/2020 LIGATE FALLOPIAN TUBE Tubal ligation PAST SURGICAL HISTORY OF kidney stone removal and stent PAST SURGICAL HISTORY OF fissurectomy PLASTIC SURG - PACKAGE 11/2013 most recent x4- facial nerves for headaches PORT port placed 11/2018 REMOVAL OF OVARY(S) Left 09/21/2020 Left oophorectomy-Dr. Xavier SALPINGECTOMY Bilateral 09/21/2020 Dr. Xavier FAMILY HISTORY Problem Relation Age of Onset None Mother other (endometriosis) Mother Heart Father Breast Cancer Maternal Grandmother Heart Maternal Grandfather SOCIAL HISTORY Social History Tobacco Use Smoking status: Never Smokeless tobacco: Never Substance Use Topics Alcohol use: No Drug use: No Comment: very little REVIEW OF SYSTEMS Abdomen: No abdominal pain, nausea, vomiting, diarrhea, or constipation. No bloating, early satiety, indigestion, or increased flatulence. Bladder: No dysuria, gross hematuria, urinary frequency, urinary urgency, or incontinence. Breast: No breast lumps, nipple d/c, overlying skin changes, redness or skin retraction. Allergies and current medication updated:Yes EXAM: LMP 06/15/2020 GENERAL: pleasant, female in no apparent distress HEENT: Normocephalic and atraumatic NECK: full range of motion DERMATOLOGY: Normal, without lesions, non-icteric, and non-hirsute BREAST: soft, non-tender, symmetric, no dominant mass, normal nipple-areolar complex, no lymphadenopathy, and no nipple discharge CHEST: Normal inspiratory effort ABDOMEN: soft, non-tender, and no masses PELVIC: external genitalia atrophy, normal Bartholin's glands, urethra, Toughkenamon's glands, no vulvar lesions, no cervical lesions, good vaginal support, physiologic discharge present, normal appearing perineal body and perianal region BIMANUAL: uterus normal size, shape and consistency, no adnexal masses, and non-tender RECTOVAGINAL: deferred. NEURO: exam grossly non-focal EXTREMITIES: normal ASSESSMENT/PLAN: 1) Health maintenance: Pap/HPV up to date. Mammogram ordered. Nutrition, exercise and routine health maintenance exams reviewed. Vaginal atrophy and dryness: Start vaginal estrogen cream. 2) Contraception: IUD and tubal sterilization. Contraceptive options reviewed and information provided. 3) STD screening: Declined STD check. 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 - [place] 3-B12-F (more content not included)... Normal [facility] No Panel Informationon 08-05 POC SARS CoV-2 Antigen Negative [facility] - Microbiology an d Antimicrobial susceptibilityon 07-03-2023 S. pyogenes Ag IA Ql (Unsp spec) Negative [facility] ISAIAS SCREENINGon 01-10-2023 [facility] Absolute lymphocyte countOrd ered By: Dr. Dinero on 12-21-2022 Lymphocytes Auto (Unsp spec) [#/Vol] 0.78 10*3/uL 0.83-4.51 [facility] Basophil percentageOrdered B y: Dr. Dinero on 12-21-2022 Basophils/100 WBC (Bld) 0.1 % 0-1 [facility] Chloride [Moles/Vol] 115 mmol/L 98-107 [facility] Eosinophils/100 WBC (Bld) 0.0 % 0-5 [facility] Glucose [Mass/Vol] 244 mg/dL 74-106 [facility] Comment on above: Glucose result great er than or equal to 200 mg/dLsuggests DIABETES MELLITUS per A.D.A. criteria. Neutrophils (Bld) [#/Vol] 7.1 10*3/uL 2.0-7.7 [facility] Neutrophils/100 WBC (Bld) 87.1 % 47-70 [facility] Potassium [Moles/Vol] 3.5 mmol/L 3.5-5.1 [facility] Sodium [Moles/Vol] 143 mmol/L 136-145 [facility] WBC (Bld) [#/Vol] 8.2 10*3/uL 4.4-11.0 [facility] Blood erythrocytes count (nu mber/volume)Ordered By: Dr. Dinero on 12-21-2022 RBC (Bld) [#/Vol] 3.86 10*6/uL 4.2-5.4 [facility] Blood hemoglobin measurement (mass/volume)Ordered By: Dr. Dinero on 12-21-2022 Hemoglobin (Bld) [Mass/Vol] 10.9 g/dL 12.0-15.0 [facility] Blood lymphocytes/100 leukoc ytesOrdered By: Dr. Dinero on 12-21-2022 Lymphocytes/100 WBC (Bld) 9.5 % 19-41 [facility] Blood monocytes/100 leukocyt esOrdered By: Dr. Dinero on 12-21-2022 Monocytes/100 WBC (Bld) 2.6 % 0-10 [facility] Blood platelet mean volumeOr dered By: Dr. Dinero on 12-21-2022 Platelet mean volume (Bld) [Entitic vol] 10.3 fL 6.2-12.0 [facility] Determination of erythrocyte mean corpuscular volume (MCV)Ordered By: Dr. Dinero on 12-21-2022 MCV (RBC) [Entitic vol] 88.9 fL 81-99 [facility] Hematocrit Auto (Bld) [Volum e fraction]Ordered By: Dr. Dinero on 12-21-2022 Hematocrit (Bld) [Volume fraction] 34.3 % 37-47 [facility] Laboratory - Chemistry and C hemistry - challengeOrdered By: Dr. Dinero on 12-21-2022 CO2 [Moles/Vol] 21.0 mmol/L 21.0-32.0 [facility] Urea nitrogen/Creatinine [Mass ratio] 7.4 mg/mg 10-20 [facility] Laboratory - Hematology and Cell countsOrdered By: Dr. Dinero on 12-21-2022 Erythrocyte distribution width (RBC) [Entitic vol] 40.5 fL 35.1-43.9 [facility] Erythrocyte distribution width (RBC) [Ratio] 12.4 % 11.6-14.6 [facility] Immature granulocytes/100 WBC (Bld) 0.700 % 0.0-0.9 [facility] Comment on above: IG% - Immature Granu locytes (promyelocytes, myelocytes and metamyelocytes) > 1% indicates that a LEFT SHIFT is Present. MCH (RBC) [Entitic mass] 28.2 pg 27.0-32.0 [facility] Nucleated RBC/100 WBC (Bld) [Ratio] 0 % 0-5 [facility] MCHC Auto (RBC) [Mass/Vol]Or dered By: Dr. Dinero on 12-21-2022 MCHC (RBC) [Mass/Vol] 31.8 g/dL 32-36 [facility] No Panel InformationOrdered By: Dr. Dinero on 12-21-2022 Estimated Creatinine Clearance Calc 48.59 ml/min [facility] Estimated GFR (MDRD) Amer 70 mL/min >60 [facility] Comment on above: GFR Calc Estimated GFR (MDRD) Non-Af Amer 58 mL/min >60 [facility] Comment on above: Non- GFR Calc Platelets bldOrdered By: Dr. Dinero on 12-21-2022 Platelets (Bld) [#/Vol] 134 10*3/uL 150-450 [facility] Serum or plasma calcium amelie urement (mass/volume)Ordered By: Dr. Dinero on 12-21-2022 Calcium [Mass/Vol] 8.7 mg/dL 8.5-10.1 [facility] Serum or plasma creatinine m easurement (mass/volume)Ordered By: Dr. Dinero on 12-21-2022 Creatinine [Mass/Vol] 1.08 mg/dL 0.55-1.02 [facility] Comment on above: The validity of the calculated GFR & GFRAA in patients over 70 years has not been determined. Clinical correlation is essential. Serum or plasma urea nitroge n measurement (mass/volume)Ordered By: Dr. Dinero on 12-21-2022 Urea nitrogen [Mass/Vol] 8 mg/dL 7-18 [facility] Thin prep Papanicolaou smear with manual screeningOrdered By: Dr. Dinero on 12-21-2022 Thin prep Papanicolaou smear with manual screening 7 5-15 [facility] Laboratory - CoagulationOrde red By: Dr. Dinero on 12-20-2022 aPTT Coag (Bld) [Time] 37.9 s 24.1-36.2 [facility] Basophil percentageOrdered B y: Dr. Coates on 12-19-2022 Basophil percentage 2.9 mg/dL 2.5-4.9 [facility] Bilirubin [Mass/Vol] 0.20 mg/dL 0.20-1.00 [facility] Comment on above: For patients on eltr ombopag therapy, use of Dimension [place] TBIL is not recommended. Protein [Mass/Vol] 5.4 g/dL 6.4-8.2 [facility] [place] Laboratory - Chemistry and C hemistry - challengeOrdered By: Dr. Coates on 12-19-2022 ALP [Catalytic activity/Vol] 107 U/L 45-117 [facility] ALT [Catalytic activity/Vol] 96 U/L 13-56 [facility] Globulin (S) [Mass/Vol] 2.4 g/dL 2.2-4.2 [facility] Magnesium [Mass/Vol] 2.4 mg/dL 1.6-2.6 [facility] No Panel InformationOrdered By: Dr. Coates on 12-19-2022 Thyroid Stimulating Hormone (TSH) 6.37 uIU/mL 0.358-3.74 [facility] Serum or plasma albumin amelie urement (mass/volume)Ordered By: Dr. Coates on 12-19-2022 Albumin [Mass/Vol] 3.0 g/dL 3.2-5.0 [facility] Serum or plasma albumin/glob ulin mass ratioOrdered By: Dr. Coates on 12-19-2022 Albumin/Globulin [Mass ratio] 1.2 {ratio} 0.9-2.4 [facility] Thin prep Papanicolaou smear with manual screeningOrdered By: Dr. Coates on 12-19-2022 Thin prep Papanicolaou smear with manual screening 20 U/L 15-37 [facility] Absolute lymphocyte countOrd ered By: Dr. King on 12-18-2022 Lymphocytes Auto (Unsp spec) [#/Vol] 1.56 10*3/uL 0.83-4.51 [facility] Basophil percentageOrdered B y: Dr. King on 12-18-2022 Basophils/100 WBC (Bld) 0.6 % 0-1 [facility] Bilirubin [Mass/Vol] 0.50 mg/dL 0.20-1.00 [facility] Comment on above: For patients on eltr ombopag therapy, use of Dimension [place] TBIL is not recommended. Chloride [Moles/Vol] 108 mmol/L 98-107 [facility] Eosinophils/100 WBC (Bld) 1.4 % 0-5 [facility] Glucose [Mass/Vol] 73 mg/dL 74-106 [facility] Neutrophils (Bld) [#/Vol] 2.9 10*3/uL 2.0-7.7 [facility] Neutrophils/100 WBC (Bld) 58.5 % 47-70 [facility] Potassium [Moles/Vol] 3.8 mmol/L 3.5-5.1 [facility] Protein [Mass/Vol] 7.2 g/dL 6.4-8.2 [facility] Sodium [Moles/Vol] 140 mmol/L 136-145 [facility] WBC (Bld) [#/Vol] 4.9 10*3/uL 4.4-11.0 [facility] Blood erythrocytes count (nu mber/volume)Ordered By: Dr. King on 12-18-2022 RBC (Bld) [#/Vol] 4.85 10*6/uL 4.2-5.4 [facility] Blood hemoglobin measurement (mass/volume)Ordered By: Dr. King on 12-18-2022 Hemoglobin (Bld) [Mass/Vol] 13.9 g/dL 12.0-15.0 [facility] Blood lymphocytes/100 leukoc ytesOrdered By: Dr. King on 12-18-2022 Lymphocytes/100 WBC (Bld) 31.9 % 19-41 [facility] Blood monocytes/100 leukocyt esOrdered By: Dr. King on 12-18-2022 Monocytes/100 WBC (Bld) 7.4 % 0-10 [facility] Blood platelet mean volumeOr dered By: Dr. King on 12-18-2022 Platelet mean volume (Bld) [Entitic vol] 9.7 fL 6.2-12.0 [facility] Determination of erythrocyte mean corpuscular volume (MCV)Ordered By: Dr. King on 12-18-2022 MCV (RBC) [Entitic vol] 87.0 fL 81-99 [facility] Glucose Glucometer (BldC) [M ass/Vol]Ordered By: Dr. King on 12-18-2022 Glucose [Mass/Vol] 71 mg/dL 74-106 [facility] Comment on above: MANAGEMENT OF PATIEN T CARE PER NURSING PROTOCOL Hematocrit Auto (Bld) [Volum e fraction]Ordered By: Dr. King on 12-18-2022 Hematocrit (Bld) [Volume fraction] 42.2 % 37-47 [facility] Laboratory - Chemistry and C hemistry - challengeOrdered By: Dr. King on 12-18-2022 ALP [Catalytic activity/Vol] 145 U/L 45-117 [facility] ALT [Catalytic activity/Vol] 141 U/L 13-56 [facility] CO2 [Moles/Vol] 23.0 mmol/L 21.0-32.0 [facility] Globulin (S) [Mass/Vol] 3.0 g/dL 2.2-4.2 [facility] Lipase [Catalytic activity/Vol] 372 U/L 73-393 [facility] Urea nitrogen/Creatinine [Mass ratio] 15.3 mg/mg 10-20 [facility] Laboratory - Hematology and Cell countsOrdered By: Dr. King on 12-18-2022 Erythrocyte distribution width (RBC) [Entitic vol] 38.8 fL 35.1-43.9 [facility] Erythrocyte distribution width (RBC) [Ratio] 12.1 % 11.6-14.6 [facility] Immature granulocytes/100 WBC (Bld) 0.200 % 0.0-0.9 [facility] Comment on above: IG% - Immature Granu locytes (promyelocytes, myelocytes and metamyelocytes) > 1% indicates that a LEFT SHIFT is Present. MCH (RBC) [Entitic mass] 28.7 pg 27.0-32.0 [facility] Nucleated RBC/100 WBC (Bld) [Ratio] 0 % 0-5 [facility] MCHC Auto (RBC) [Mass/Vol]Or dered By: Dr. King on 12-18-2022 MCHC (RBC) [Mass/Vol] 32.9 g/dL 32-36 [facility] No Panel InformationOrdered By: Dr. King on 12-18-2022 Estimated Creatinine Clearance Calc 38.20 ml/min [facility] Estimated GFR (MDRD) Amer 50 mL/min >60 [facility] Comment on above: GFR Calc Estimated GFR (MDRD) Non-Af Amer 41 mL/min >60 [facility] Comment on above: Non- GFR Calc Platelets bldOrdered By: Dr. King on 12-18-2022 Platelets (Bld) [#/Vol] 175 10*3/uL 150-450 [facility] Serum or plasma albumin amelie urement (mass/volume)Ordered By: Dr. King on 12-18-2022 Albumin [Mass/Vol] 4.2 g/dL 3.2-5.0 [facility] Serum or plasma albumin/glob ulin mass ratioOrdered By: Dr. King on 12-18-2022 Albumin/Globulin [Mass ratio] 1.4 {ratio} 0.9-2.4 [facility] Serum or plasma calcium amelie urement (mass/volume)Ordered By: Dr. King on 12-18-2022 Calcium [Mass/Vol] 10.0 mg/dL 8.5-10.1 [facility] Serum or plasma creatinine m easurement (mass/volume)Ordered By: Dr. King on 12-18-2022 Creatinine [Mass/Vol] 1.44 mg/dL 0.55-1.02 [facility] Comment on above: The validity of the calculated GFR & GFRAA in patients over 70 years has not been determined. Clinical correlation is essential. Serum or plasma urea nitroge n measurement (mass/volume)Ordered By: Dr. King on 12-18-2022 Urea nitrogen [Mass/Vol] 22 mg/dL 7-18 [facility] Thin prep Papanicolaou smear with manual screeningOrdered By: Dr. King on 12-18-2022 Thin prep Papanicolaou smear with manual screening 28 U/L 15-37 [facility] Thin prep Papanicolaou smear with manual screening 9 5-15 [facility] Absolute lymphocyte countOrd ered By: Dr. Almonte on 12-12-2022 Lymphocytes Auto (Unsp spec) [#/Vol] 1.54 10*3/uL 0.83-4.51 [facility] Basophil percentageOrdered B y: Dr. Almonte on 12-12-2022 Basophil percentage 0-5 SEEN /hpf 0-5 [facility] Basophils/100 WBC (Bld) 0.9 % 0-1 [facility] Bilirubin [Mass/Vol] 0.60 mg/dL 0.20-1.00 [facility] Comment on above: For patients on eltr ombopag therapy, use of Dimension [place] TBIL is not recommended. Chloride [Moles/Vol] 106 mmol/L 98-107 [facility] Eosinophils/100 WBC (Bld) 2.1 % 0-5 [facility] Glucose [Mass/Vol] 83 mg/dL 74-106 [facility] Lactate [Moles/Vol] 0.9 mmol/L 0.4-2.0 [facility] Neutrophils (Bld) [#/Vol] 2.7 10*3/uL 2.0-7.7 [facility] Neutrophils/100 WBC (Bld) 56.5 % 47-70 [facility] Potassium [Moles/Vol] 3.5 mmol/L 3.5-5.1 [facility] Protein [Mass/Vol] 7.4 g/dL 6.4-8.2 [facility] Sodium [Moles/Vol] 139 mmol/L 136-145 [facility] WBC (Bld) [#/Vol] 4.7 10*3/uL 4.4-11.0 [facility] Beta hCG serum qualOrdered B y: Dr. Almonte on 12-12-2022 Beta HCG ( test) Ql Negative [facility] Bilirubin Test strip Ql (U)O rdered By: Dr. Almonte on 12-12-2022 Bilirubin Ql (U) Negative Negative [facility] Blood erythrocytes count (nu mber/volume)Ordered By: Dr. Almonte on 12-12-2022 RBC (Bld) [#/Vol] 4.79 10*6/uL 4.2-5.4 [facility] Blood hemoglobin measurement (mass/volume)Ordered By: Dr. Almonte on 12-12-2022 Hemoglobin (Bld) [Mass/Vol] 13.7 g/dL 12.0-15.0 [facility] Blood lymphocytes/100 leukoc ytesOrdered By: Dr. Almonte on 12-12-2022 Lymphocytes/100 WBC (Bld) 32.8 % 19-41 [facility] Blood monocytes/100 leukocyt esOrdered By: Dr. Almonte on 12-12-2022 Monocytes/100 WBC (Bld) 7.5 % 0-10 [facility] Blood platelet mean volumeOr dered By: Dr. Almonte on 12-12-2022 Platelet mean volume (Bld) [Entitic vol] 10.0 fL 6.2-12.0 [facility] Determination of erythrocyte mean corpuscular volume (MCV)Ordered By: Dr. Almonte on 12-12-2022 MCV (RBC) [Entitic vol] 88.7 fL 81-99 [facility] Hematocrit Auto (Bld) [Volum e fraction]Ordered By: Dr. Almonte on 12-12-2022 Hematocrit (Bld) [Volume fraction] 42.5 % 37-47 [facility] Ketones Test strip Ql (U)Ord ered By: Dr. Almonte on 12-12-2022 Ketones Ql (U) Negative Negative [facility] Laboratory - Chemistry and C hemistry - challengeOrdered By: Dr. Almonte on 12-12-2022 ALP [Catalytic activity/Vol] 114 U/L 45-117 [facility] ALT [Catalytic activity/Vol] 39 U/L 13-56 [facility] CO2 [Moles/Vol] 24.0 mmol/L 21.0-32.0 [facility] Globulin (S) [Mass/Vol] 3.0 g/dL 2.2-4.2 [facility] Lipase [Catalytic activity/Vol] 174 U/L 73-393 [facility] Urea nitrogen/Creatinine [Mass ratio] 15.8 mg/mg 10-20 [facility] Laboratory - Hematology and Cell countsOrdered By: Dr. Almonte on 12-12-2022 Erythrocyte distribution width (RBC) [Entitic vol] 40.0 fL 35.1-43.9 [facility] Erythrocyte distribution width (RBC) [Ratio] 12.4 % 11.6-14.6 [facility] Immature granulocytes/100 WBC (Bld) 0.200 % 0.0-0.9 [facility] Comment on above: IG% - Immature Granu locytes (promyelocytes, myelocytes and metamyelocytes) > 1% indicates that a LEFT SHIFT is Present. MCH (RBC) [Entitic mass] 28.6 pg 27.0-32.0 [facility] Nucleated RBC/100 WBC (Bld) [Ratio] 0 % 0-5 [facility] MCHC Auto (RBC) [Mass/Vol]Or dered By: Dr. Almonte on 12-12-2022 MCHC (RBC) [Mass/Vol] 32.2 g/dL 32-36 [facility] Mucus LM Ql (Urine sed)Order ed By: Dr. Almonte on 12-12-2022 Mucus Ql (Urine sed) 0 SEEN /hpf [facility] Nitrite Test strip Ql (U)Ord ered By: Dr. Almonte on 12-12-2022 Nitrite Ql (U) Negative Negative [facility] No Panel InformationOrdered By: Dr. Almonte on 12-12-2022 Estimated Creatinine Clearance Calc 34.81 ml/min [facility] Estimated GFR (MDRD) Amer 45 mL/min >60 [facility] Comment on above: GFR Calc Estimated GFR (MDRD) Non-Af Amer 37 mL/min >60 [facility] Comment on above: Non- GFR Calc Platelets bldOrdered By: Dr. Almonte on 12-12-2022 Platelets (Bld) [#/Vol] 204 10*3/uL 150-450 [facility] Protein Test strip Ql (U)Ord ered By: Dr. Almonte on 12-12-2022 Protein Ql (U) Negative Negative [facility] Serum or plasma albumin amelie urement (mass/volume)Ordered By: Dr. Almonte on 12-12-2022 Albumin [Mass/Vol] 4.4 g/dL 3.2-5.0 [facility] Serum or plasma albumin/glob ulin mass ratioOrdered By: Dr. Almonte on 12-12-2022 Albumin/Globulin [Mass ratio] 1.5 {ratio} 0.9-2.4 [facility] Serum or plasma calcium amelie urement (mass/volume)Ordered By: Dr. Almonte on 12-12-2022 Calcium [Mass/Vol] 10.0 mg/dL 8.5-10.1 [facility] Serum or plasma creatinine m easurement (mass/volume)Ordered By: Dr. Almonte on 12-12-2022 Creatinine [Mass/Vol] 1.58 mg/dL 0.55-1.02 [facility] Comment on above: The validity of the calculated GFR & GFRAA in patients over 70 years has not been determined. Clinical correlation is essential. Serum or plasma urea nitroge n measurement (mass/volume)Ordered By: Dr. Almonte on 12-12-2022 Urea nitrogen [Mass/Vol] 25 mg/dL 7-18 [facility] Squamous epithelial cells de tection in urine sediment by light microscopyOrdered By: Dr. Almonte on 12-12-2022 Epithelial cells.squamous LM Ql (Urine sed) 0-5 SEEN /hpf 5-10 [facility] Thin prep Papanicolaou smear with manual screeningOrdered By: Dr. Almonte on 12-12-2022 Thin prep Papanicolaou smear with manual screening 17 U/L 15-37 [facility] Thin prep Papanicolaou smear with manual screening 9 5-15 [facility] Urine blood detectionOrdered By: Dr. Almonte on 12-12-2022 RBC Ql (U) Negative Negative [facility] RBC Ql (U) 0 SEEN /hpf 0-5 [facility] Urine clarityOrdered By: Dr. Almonte on 12-12-2022 Clarity (U) Clear Clear [facility] Urine color determinationOrd ered By: Dr. Almonte on 12-12-2022 Color (U) Yellow Yellow [facility] Urine glucose detectionOrder ed By: Dr. Almonte on 12-12-2022 Glucose Ql (U) Normal mg/dl Normal [facility] Urine leukocyte esterase det ection by dipstickOrdered By: Dr. Almonte on 12-12-2022 Leukocyte esterase Test strip Ql (U) 500 /ul Negative [facility] Urine pHOrdered By: Dr. Priyanka wright on 12-12-2022 pH (U) 6.5 [pH] 5.0 - 8.0 [facility] Urine sediment bacteria coun t by microscopy (number/high power field)Ordered By: Dr. Almonte on 12-12-2022 Bacteria LM.HPF (Urine sed) [#/Area] 0 /[HPF] None Seen [facility] Urine sediment renal epithel ial cell count by microscopy (number/high power field)Ordered By: Dr. Almonte on 12-12-2022 Epithelial cells.renal LM.HPF (Urine sed) [#/Area] 0 /[HPF] 0-5 [facility] Urine specific gravity measu rementOrdered By: Dr. Almonte on 12-12-2022 Specific gravity (U) [Rel density] 1.010 1.002-1.03 0 [facility] Urobilinogen Auto test strip Ql (U)Ordered By: Dr. Almonte on 12-12-2022 Urobilinogen Ql (U) Normal mg/dl Normal [facility] Drug Monitor Panel 5 Screen, Urine ([facility])on 12-04-2022 Abnormal Specimen Validity Test CANCELED [facility] [employer] Comment on above: Result canceled by t mikey ancillary. Amphetamines Ql (U) Positive Abnormal NINF - 5 00 ng/mL [facility] Comment on above: See Note A Barbiturates Ql (U) Negative NINF - 3 00 ng/mL [facility] [employer] Comment on above: See Note A Benzodiazepines Ql (U) Positive Abnormal NINF - 100 ng/mL [facility] [employer] Comment on above: See Note A Benzoylecgonine Ql (U) Negative NINF - 150 ng/mL [facility] [employer] Comment on above: See Note A Creatinine (U) [Mass/Vol] 85.9 mg/dL > or = 20.0 [facility] Interpretation and review of laboratory results [facility] Methadone Ql (U) Negative NINF - 100 ng/mL [facility] [employer] Comment on above: See Note A Notes and Comments [facility] [employer] Comment on above: This drug testing is for medical treatment only. Analysis was performed as non-forensic testing and these results should be used only by healthcare providers to render diagnosis or treatment, or to monitor progress of medical conditions. Note A: The results are presumptive; based only on screening methods, and they have not been confirmed by a definitive method. Healthcare Providers needing Interpretation assistance, please contact us at [phone] ( ) M-F, 8am to 10pm EST Opiates Ql (U) Negative NINF - 100 ng/mL [facility] Comment on above: See Note A Oxidants Ql (U) Negative NINF [facility] oxyCODONE Ql (U) Negative NINF - 100 ng/mL [facility] Comment on above: See Note A Patient Historical Report CANCELED [facility] [facility] Comment on above: Result canceled by t he ancillary. pH (U) 7.5 [pH] 4.5 - 9.0 [facility] Specific gravity (U) [Rel density] CANCELED > or = 1.003 [facility] Comment on above: Result canceled by t he ancillary. Tetrahydrocannabinol Ql (U) Negative NINF - 20 ng/mL [facility] Comment on above: See Note A [facility] Culture, urineOrdered By: Dr Damion Solis on 08-20-2022 Bacteria identified Cx Nom (U) Positive [facility] Absolute lymphocyte countOrd ered By: ED PROVIDER on 08-18-2022 Lymphocytes Auto (Unsp spec) [#/Vol] 1.55 10*3/uL 0.83-4.51 [facility] Amorphous sediment detection in urine sediment by light microscopyOrdered By: ED PROVIDER on 08-18-2022 Amorphous sediment LM Ql (Urine sed) 3+ [facility] Basophil percentageOrdered B y: ED PROVIDER on 08-18-2022 Basophils/100 WBC (Bld) 0.4 % 0-1 [facility] Chloride [Moles/Vol] 116 mmol/L 98-107 [facility] Eosinophils/100 WBC (Bld) 2.1 % 0-5 [facility] Glucose [Mass/Vol] 106 mg/dL 74-106 [facility] Comment on above: Fasting Glucose resu lt from 100 to 125 mg/dL suggests IMPAIRED HOMEOSTASIS per A.D.A. criteria. Neutrophils (Bld) [#/Vol] 3.5 10*3/uL 2.0-7.7 [facility] Neutrophils/100 WBC (Bld) 62.3 % 47-70 [facility] Potassium [Moles/Vol] 4.1 mmol/L 3.5-5.1 [facility] Sodium [Moles/Vol] 145 mmol/L 136-145 [facility] WBC (Bld) [#/Vol] 5.7 10*3/uL 4.4-11.0 [facility] Basophil percentage 0 SEEN /hpf 0-5 [facility] Bilirubin Test strip Ql (U)O rdered By: ED PROVIDER on 08-18-2022 Bilirubin Ql (U) Negative Negative [facility] Blood erythrocytes count (nu mber/volume)Ordered By: ED PROVIDER on 08-18-2022 RBC (Bld) [#/Vol] 4.38 10*6/uL 4.2-5.4 [facility] Blood hemoglobin measurement (mass/volume)Ordered By: ED PROVIDER on 08-18-2022 Hemoglobin (Bld) [Mass/Vol] 12.7 g/dL 12.0-15.0 [facility] Blood lymphocytes/100 leukoc ytesOrdered By: ED PROVIDER on 08-18-2022 Lymphocytes/100 WBC (Bld) 27.4 % 19-41 [facility] Blood monocytes/100 leukocyt esOrdered By: ED PROVIDER on 08-18-2022 Monocytes/100 WBC (Bld) 7.6 % 0-10 [facility] Blood platelet mean volumeOr dered By: ED PROVIDER on 08-18-2022 Platelet mean volume (Bld) [Entitic vol] 9.6 fL 6.2-12.0 [facility] Determination of erythrocyte mean corpuscular volume (MCV)Ordered By: ED PROVIDER on 08-18-2022 MCV (RBC) [Entitic vol] 88.8 fL 81-99 [facility] Hematocrit Auto (Bld) [Volum e fraction]Ordered By: ED PROVIDER on 08-18-2022 Hematocrit (Bld) [Volume fraction] 38.9 % 37-47 [facility] Ketones Test strip Ql (U)Ord ered By: ED PROVIDER on 08-18-2022 Ketones Ql (U) Negative Negative [facility] Laboratory - Chemistry and C hemistry - challengeOrdered By: ED PROVIDER on 08-18-2022 CO2 [Moles/Vol] 25.0 mmol/L 21.0-32.0 [facility] Urea nitrogen/Creatinine [Mass ratio] 15.3 mg/mg 10-20 [facility] Laboratory - Hematology and Cell countsOrdered By: ED PROVIDER on 08-18-2022 Erythrocyte distribution width (RBC) [Entitic vol] 40.0 fL 35.1-43.9 [facility] Erythrocyte distribution width (RBC) [Ratio] 12.4 % 11.6-14.6 [facility] Immature granulocytes/100 WBC (Bld) 0.200 % 0.0-0.9 [facility] Comment on above: IG% - Immature Granu locytes (promyelocytes, myelocytes and metamyelocytes) > 1% indicates that a LEFT SHIFT is Present. MCH (RBC) [Entitic mass] 29.0 pg 27.0-32.0 [facility] Nucleated RBC/100 WBC (Bld) [Ratio] 0 % 0-5 [facility] MCHC Auto (RBC) [Mass/Vol]Or dered By: ED PROVIDER on 08-18-2022 MCHC (RBC) [Mass/Vol] 32.6 g/dL 32-36 [facility] Mucus LM Ql (Urine sed)Order ed By: ED PROVIDER on 08-18-2022 Mucus Ql (Urine sed) 0 SEEN /hpf [facility] Nitrite Test strip Ql (U)Ord ered By: ED PROVIDER on 08-18-2022 Nitrite Ql (U) Negative Negative [facility] No Panel InformationOrdered By: ED PROVIDER on 08-18-2022 Estimated Creatinine Clearance Calc 41.99 ml/min [facility] Estimated GFR (MDRD) Amer 56 mL/min >60 [facility] Comment on above: GFR Calc Estimated GFR (MDRD) Non-Af Amer 46 mL/min >60 [facility] Comment on above: Non- GFR Calc Platelets bldOrdered By: ED PROVIDER on 08-18-2022 Platelets (Bld) [#/Vol] 161 10*3/uL 150-450 [facility] Protein Test strip Ql (U)Ord ered By: ED PROVIDER on 08-18-2022 Protein Ql (U) Negative Negative [facility] Serum or plasma calcium amelie urement (mass/volume)Ordered By: ED PROVIDER on 08-18-2022 Calcium [Mass/Vol] 8.9 mg/dL 8.5-10.1 [facility] Serum or plasma creatinine m easurement (mass/volume)Ordered By: ED PROVIDER on 08-18-2022 Creatinine [Mass/Vol] 1.31 mg/dL 0.55-1.02 [facility] Comment on above: The validity of the calculated GFR & GFRAA in patients over 70 years has not been determined. Clinical correlation is essential. Serum or plasma urea nitroge n measurement (mass/volume)Ordered By: ED PROVIDER on 08-18-2022 Urea nitrogen [Mass/Vol] 20 mg/dL 7-18 [facility] Squamous epithelial cells de tection in urine sediment by light microscopyOrdered By: ED PROVIDER on 08-18-2022 Epithelial cells.squamous LM Ql (Urine sed) 0-5 SEEN /hpf 5-10 [facility] Thin prep Papanicolaou smear with manual screeningOrdered By: ED PROVIDER on 08-18-2022 Thin prep Papanicolaou smear with manual screening 4 5-15 [facility] Urine blood detectionOrdered By: ED PROVIDER on 08-18-2022 RBC Ql (U) 150 /ul Negative [facility] RBC Ql (U) 0-5 SEEN /hpf 0-5 [facility] Urine clarityOrdered By: ED PROVIDER on 08-18-2022 Clarity (U) Turbid Clear [facility] Urine color determinationOrd ered By: ED PROVIDER on 08-18-2022 Color (U) Yellow Yellow [facility] Urine glucose detectionOrder ed By: ED PROVIDER on 08-18-2022 Glucose Ql (U) Normal mg/dl Normal [facility] Urine leukocyte esterase det ection by dipstickOrdered By: ED PROVIDER on 08-18-2022 Leukocyte esterase Test strip Ql (U) 500 /ul Negative [facility] Urine pHOrdered By: ED PROVI RANDELL on 08-18-2022 pH (U) 8.0 [pH] 5.0 - 8.0 [facility] Urine sediment bacteria coun t by microscopy (number/high power field)Ordered By: ED PROVIDER on 08-18-2022 Bacteria LM.HPF (Urine sed) [#/Area] 0 /[HPF] None Seen [facility] Urine specific gravity measu rementOrdered By: ED PROVIDER on 08-18-2022 Specific gravity (U) [Rel density] 1.010 1.002-1.03 0 [facility] Urobilinogen Auto test strip Ql (U)Ordered By: ED PROVIDER on 08-18-2022 Urobilinogen Ql (U) Normal mg/dl Normal [facility] Absolute lymphocyte counton 04-16-2022 Lymphocytes Auto (Unsp spec) [#/Vol] 1.61 10*3/uL 0.83-4.51 [facility] Work Phone: Basophil percentageon 2021 Basophils/100 WBC (Bld) 0.8 % 0-1 [facility] Work Phone: Bilirubin [Mass/Vol] 0.50 mg/dL 0.20-1.00 [facility] Work Phone: Comment on above: For patients on eltr ombopag therapy, use of Dimension [place] TBIL is not recommended. Chloride [Moles/Vol] 111 mmol/L 98-107 [facility] Work Phone: Eosinophils/100 WBC (Bld) 3.2 % 0-5 [facility] Work Phone: Glucose [Mass/Vol] 83 mg/dL 74-106 [facility] Work Phone: Neutrophils (Bld) [#/Vol] 2.8 10*3/uL 2.0-7.7 [facility] Work Phone: Neutrophils/100 WBC (Bld) 55.8 % 47-70 [facility] Work Phone: Potassium [Moles/Vol] 3.8 mmol/L 3.5-5.1 [facility] Work Phone: Protein [Mass/Vol] 7.2 g/dL 6.4-8.2 [facility] Work Phone: Sodium [Moles/Vol] 140 mmol/L 136-145 [facility] Work Phone: WBC (Bld) [#/Vol] 5.0 10*3/uL 4.4-11.0 [facility] Work Phone: Basophil percentage 0-5 SEEN /hpf 0-5 [facility] Work Phone: Beta hCG serum qualon 2021 Beta HCG ( test) Ql Negative [facility] Work Phone: Bilirubin Test strip Ql (U)o n 04-16-2022 Bilirubin Ql (U) Negative Negative [facility] Work Phone: Blood erythrocytes count (nu mber/volume)on 04-16-2022 RBC (Bld) [#/Vol] 4.62 10*6/uL 4.2-5.4 [facility] Work Phone: Blood hemoglobin measurement (mass/volume)on 04-16-2022 Hemoglobin (Bld) [Mass/Vol] 13.2 g/dL 12.0-15.0 [facility] Work Phone: Blood lymphocytes/100 leukoc yteson 04-16-2022 Lymphocytes/100 WBC (Bld) 32.4 % 19-41 [facility] Work Phone: Blood monocytes/100 leukocyt eson 04-16-2022 Monocytes/100 WBC (Bld) 7.4 % 0-10 [facility] Work Phone: Blood platelet mean volumeon 04-16-2022 Platelet mean volume (Bld) [Entitic vol] 9.7 fL 6.2-12.0 [facility] Work Phone: Determination of erythrocyte mean corpuscular volume (MCV)on 04-16-2022 MCV (RBC) [Entitic vol] 87.4 fL 81-99 [facility] Work Phone: Hematocrit Auto (Bld) [Volum e fraction]on 04-16-2022 Hematocrit (Bld) [Volume fraction] 40.4 % 37-47 [facility] Work Phone: Ketones Test strip Ql (U)on 04-16-2022 Ketones Ql (U) Negative Negative [facility] Work Phone: Laboratory - Chemistry and C hemistry - challengeon 04-16-2022 ALP [Catalytic activity/Vol] 84 U/L 45-117 [facility] Work Phone: ALT [Catalytic activity/Vol] 26 U/L 13-56 [facility] Work Phone: CO2 [Moles/Vol] 22.0 mmol/L 21.0-32.0 [facility] Work Phone: Globulin (S) [Mass/Vol] 3.2 g/dL 2.2-4.2 [facility] Work Phone: Lipase [Catalytic activity/Vol] 153 U/L 73-393 [facility] Work Phone: Urea nitrogen/Creatinine [Mass ratio] 12.8 mg/mg 10-20 [facility] Work Phone: Laboratory - Hematology and Cell countson 04-16-2022 Erythrocyte distribution width (RBC) [Entitic vol] 41.6 fL 35.1-43.9 [facility] Work Phone: Erythrocyte distribution width (RBC) [Ratio] 13.1 % 11.6-14.6 [facility] Work Phone: Immature granulocytes/100 WBC (Bld) 0.400 % 0.0-0.9 [facility] Work Phone: Comment on above: IG% - Immature Granu locytes (promyelocytes, myelocytes and metamyelocytes) > 1% indicates that a LEFT SHIFT is Present. MCH (RBC) [Entitic mass] 28.6 pg 27.0-32.0 [facility] Work Phone: Nucleated RBC/100 WBC (Bld) [Ratio] 0 % 0-5 [facility] Work Phone: MCHC Auto (RBC) [Mass/Vol]on 04-16-2022 MCHC (RBC) [Mass/Vol] 32.7 g/dL 32-36 [facility] Work Phone: Mucus LM Ql (Urine sed)on Mucus Ql (Urine sed) 0 SEEN /hpf [facility] Work Phone: Nitrite Test strip Ql (U)on 04-16-2022 Nitrite Ql (U) Negative Negative [facility] Work Phone: No Panel Informationon 04-16 Estimated Creatinine Clearance Calc 44.48 ml/min [facility] Work Phone: Estimated GFR (MDRD) Amer 59 mL/min >60 [facility] Work Phone: Comment on above: GFR Calc Estimated GFR (MDRD) Non-Af Amer 49 mL/min >60 [facility] Work Phone: Comment on above: Non- GFR Calc Platelets bldon 04-16-2022 Platelets (Bld) [#/Vol] 193 10*3/uL 150-450 [facility] Work Phone: Protein Test strip Ql (U)on 04-16-2022 Protein Ql (U) Negative Negative [facility] Work Phone: Serum or plasma albumin amelie urement (mass/volume)on 04-16-2022 Albumin [Mass/Vol] 4.0 g/dL 3.2-5.0 [facility] Work Phone: Serum or plasma albumin/glob ulin mass ratioon 04-16-2022 Albumin/Globulin [Mass ratio] 1.2 {ratio} 0.9-2.4 [facility] Work Phone: Serum or plasma calcium amelie urement (mass/volume)on 04-16-2022 Calcium [Mass/Vol] 9.1 mg/dL 8.5-10.1 [facility] Work Phone: Serum or plasma creatinine m easurement (mass/volume)on 04-16-2022 Creatinine [Mass/Vol] 1.25 mg/dL 0.55-1.02 [facility] Work Phone: Comment on above: The validity of the calculated GFR & GFRAA in patients over 70 years has not been determined. Clinical correlation is essential. Serum or plasma urea nitroge n measurement (mass/volume)on 04-16-2022 Urea nitrogen [Mass/Vol] 16 mg/dL 7-18 [facility] Work Phone: Squamous epithelial cells de tection in urine sediment by light microscopyon 04-16-2022 Epithelial cells.squamous LM Ql (Urine sed) 0-5 SEEN /hpf 5-10 [facility] Work Phone: Thin prep Papanicolaou smear with manual screeningon 04-16-2022 Thin prep Papanicolaou smear with manual screening 18 U/L 15-37 [facility] Work Phone: Thin prep Papanicolaou smear with manual screening 7 5-15 [facility] Work Phone: Urine blood detectionon 03-21 RBC Ql (U) Negative Negative [facility] Work Phone: RBC Ql (U) 0 SEEN /hpf 0-5 [facility] Work Phone: Urine clarityon 04-16-2022 Clarity (U) Clear Clear [facility] Work Phone: Urine color determinationon 04-16-2022 Color (U) Yellow Yellow [facility] Work Phone: Urine glucose detectionon Glucose Ql (U) Normal mg/dl Normal [facility] Work Phone: Urine leukocyte esterase det ection by dipstickon 04-16-2022 Leukocyte esterase Test strip Ql (U) 500 /ul Negative [facility] Work Phone: Urine pHon 04-16-2022 pH (U) 8.0 [pH] 5.0 - 8.0 [facility] Work Phone: Urine sediment bacteria coun t by microscopy (number/high power field)on 04-16-2022 Bacteria LM.HPF (Urine sed) [#/Area] 0 /[HPF] None Seen [facility] Work Phone: Urine specific gravity measu rementon 04-16-2022 Specific gravity (U) [Rel density] 1.015 1.002-1.03 0 [facility] Work Phone: Urobilinogen Auto test strip Ql (U)on 04-16-2022 Urobilinogen Ql (U) Normal mg/dl Normal [facility] Work Phone: No Panel Informationon 03-16 POC SARS CoV-2 Antigen Positive [facility] Work Phone: Albumin Elph [Mass/Vol]on Albumin [Mass/Vol] 3.8 g/dL 2.9-4.4 [facility] Work Phone: Atypical perinuclear antineu trophil cytoplasmic antibodies measurementon 03-08-2022 Neutrophil cytoplasmic Ab.perinuclear.atypica l IF (S) [Titer] <1:20 titer Neg:<1:20 [facility] Work Phone: Comment on above: The atypical pANCA p attern has been observed in asignificant percentage of patients with ulcerative colitis,primary sclerosing cholangitis and autoimmune hepatitis. Basophil percentageon 2021 Basophil percentage < 0.2 AI 0.0-0.9 [facility] Work Phone: Erythrocyte sedimentation ra mikey 03-08-2022 ESR (Bld) [Velocity] 11 mm/h 0-30 [facility] Work Phone: Interpretation of serum or p lasma protein pattern by immunofixation (narrative resulton 03-08-2022 Protein Fractions Immunofixation David [Interp] See comment [facility] Work Phone: Comment on above: Result: Not Observed Laboratory - Chemistry and C hemistry - challengeon 03-08-2022 Free T4 [Mass/Vol] 1.04 ng/dL 0.76-1.46 [facility] Work Phone: No Panel Informationon 03-08 Addendum Document Comment . [facility] Work Phone: Comment on above: Protein electrophore sis scan will follow via computer,mail, or math specialist delivery. Centromere B Antibody <0.2 AI 0.0-0.9 [facility] Work Phone: Endomysial IgA Antibody Negative Negative [facility] Work Phone: Free Triiodothyronine (T3) pg/dL 2.7 pg/mL 2.18-3.98 [facility] Work Phone: Immunoglobulin E 36 IU/mL 6-495 [facility] Work Phone: Comment on above: Performed at: [id number] [place], [place] [id number] Director: Jesse Helm PhD, Phone: [phone] at: [facility] [id number] Director: Darian Aviles MD, Phone: [phone] [employer] Antibody <0.2 AI 0.0-0.9 [facility] Work Phone: Thyroid Stimulating Hormone (TSH) 3.74 uIU/mL 0.358-3.74 [facility] Work Phone: Serum DNA double strand anti body assay (units/volume)on 03-08-2022 DNA double strand Ab Qn (S) [IU]/mL 0-9 [facility] Work Phone: Comment on above: Negative <5 Equivoca l 5 - 9 Positive >9 Serum IgA measurement (units /volume)on 03-08-2022 IgA Qn (S) 107 mg/dL [facility] Work Phone: Comment on above: Performed at: [id number] [place], [place] [id number] Director: Jesse Helm PhD, Phone: [phone] Serum Geovanna-1 antibody assay (u nits/volume)on 03-08-2022 Geovanna-1 extractable nuclear Ab Qn (S) <0.2 AI 0.0-0.9 [facility] Work Phone: Serum Scl-70 extractable nuc lear antibody assay (units/volume)on 03-08-2022 SCL-70 extractable nuclear Ab Qn (S) <0.2 AI 0.0-0.9 [facility] Work Phone: Serum Antunez extractable nucl ear antibody detectionon 03-08-2022 Antunez extractable nuclear Ab Ql (S) <0.2 AI 0.0-0.9 [facility] Work Phone: Serum [id number] measu rement by electrophoresison 03-08-2022 Alpha 1 globulin Elph [Mass/Vol] 0.2 g/dL 0.0-0.4 [facility] Work Phone: Alpha 1 globulin Elph [Mass/Vol] 1.0 g/dL 0.4-1.0 [facility] Work Phone: Serum classic neutrophil cyt oplasmic antibody assay (units/volume)on 03-08-2022 Neutrophil cytoplasmic Ab.classic Qn (S) <1:20 titer Neg:<1:20 [facility] Work Phone: Serum globulin measurement ( mass/volume)on 03-08-2022 Globulin (S) [Mass/Vol] 3.5 g/dL 2.2-3.9 [facility] Work Phone: Serum or plasma C reactive p rotein measurement (mass/volume)on 03-08-2022 CRP [Mass/Vol] mg/L 0.0-3.0 [facility] Work Phone: Comment on above: C-Reactive Protein ( CRP) provides useful information for thediagnosis, therapy and monitoring of inflammatory processesand associated diseases. For the evaluation of Relative Riskfor Cardiovascular Disease, a High Sensitivity CRP (HSCRP)should be ordered. Serum or plasma IgA measurem ent (mass/volume)on 03-08-2022 IgA [Mass/Vol] 111 mg/dL 87-352 [facility] Work Phone: Serum or plasma IgG measurem ent (mass/volume)on 03-08-2022 IgG [Mass/Vol] 749 mg/dL [phone] [facility] Work Phone: Serum or plasma IgM measurem ent (mass/volume)on 03-08-2022 IgM [Mass/Vol] 68 mg/dL 26-217 [facility] Work Phone: Serum or plasma angiotensin converting enzyme measurement (enzymatic activity/volume)on 03-08-2022 Angiotensin converting enzyme [Catalytic activity/Vol] 64 U/L 14-82 [facility] Work Phone: Serum or plasma beta globuli n measurement by electrophoresis (mass/volume)on 03-08-2022 Beta globulin Elph [Mass/Vol] 1.3 g/dL 0.7-1.3 [facility] Work Phone: Serum or plasma gamma globul in measurement by electrophoresis (mass/volume)on 03-08-2022 Gamma globulin Elph [Mass/Vol] 0.9 g/dL 0.4-1.8 [facility] Work Phone: Serum or plasma immunoelectr ophoresis interpretation (nominal result)on 03-08-2022 Interpretation IEP [Interp] Comment . [facility] Work Phone: Comment on above: No monoclonality det ected. Serum perinuclear neutrophil cytoplasmic antibody titer by immunofluorescenceon 03-08-2022 Neutrophil cytoplasmic Ab.perinuclear IF (S) [Titer] <1:20 titer Neg:<1:20 [facility] Work Phone: Comment on above: The presence of posi tive fluorescence exhibiting P-ANCA orC-ANCA patterns alone is not specific for the diagnosis ofWegener's Granulomatosis (WG) or microscopic polyangiitis.Decisions about treatment should not be based solely onANCA IFA results. The [employer] Consensusrecommends follow up testing of positive sera with both VT-3 and MPO-ANCA enzyme immunoassays. As many as 5% serumsamples are positive only by EIA. Ref. AM J Clin Oeuxbb3455;111:507-513. Serum tissue transglutaminas e IgA antibody assay (units/volume)on 03-08-2022 tTG IgA Qn (S) <2 U/mL 0-3 [facility] Work Phone: Comment on above: Negative 0 - 3 Weak Positive 4 - 10 Positive >10 Tissue Transglutaminase (tTG) has been identified as the endomysial antigen. Studies have demonstr- ated that endomysial IgA antibodies have over 99% specificity for gluten sensitive enteropathy. Thin prep Papanicolaou smear with manual screeningon 03-08-2022 Thin prep Papanicolaou smear with manual screening 195 U/L 84-246 [facility] Work Phone: Thin prep Papanicolaou smear with manual screening 1.1 0.7-1.7 [facility] Work Phone: Total protein bloodon 2021 Protein [Mass/Vol] 7.3 g/dL 6.0-8.5 [facility] Work Phone: Psychiatry Adulton 2 Psychiatry Adult Diagnoses/Problems Assessed Anxiety (300.00) (F41.9) Mild depression (311) (F32.0) Memory deficit (780.93) (R41.3) Orders Anxiety Renew: busPIRone HCl - 7.5 MG Oral Tablet; TAKE 1 TABLET TWICE DAILY as directed Patient Discussion/Summary Patient is requested to schedule followup appt in 30 days from today. Reviewed diagnostic impression, education about anxiety, complex PTSD, insomnia, mild depression, obsessive thinking, etiology, treatment recommendations including medication, therapy, course of treatment and prognosis. Continue taking Buspar 7.5mg twice daily for anxiety management. Reduce taking Trazodone from 100mg to 75mg at bedtime for sleep aid. Continue taking Klonopin 2mg at bedtime but we will be starting taper schedule at next appt - reducing dose by 5mg every 3 weeks until done. Currently PCP has been managing the medication. Reviewed r/b/a, possible side effects of the medication. Client is aware about the benefit outweighs the risk. Patient is reminded that if there is SI to call [phone] and get themselves to the closest ED for evaluation, otherwise contact me for other questions/concerns. Seek out a therapist who works with trauma therapies from provided link to [employer] website. Provider Impressions (Appt conducted via [employer] d/t CHRISTI and patient gave verbal permission to have appt. via [employer]. Total length of call was 26 minutes.) Here for her second followup appt. More engaging and smiling/laughing appropriately. Reports memory deficit concerns are her number one issue, along with possible ADHD, but overall mental health has improved, especially sleep quality. Reviewed and agreed to leaving meds/tx plan in place and encouraged patient to discuss other issues that may be causing her memory concerns. Reports increase in Buspar is helping with anxiety. Encouraged patient to reduce Trazodone d/t excessive sleepiness and concern that is impacting fatigue and memory issues. DX: anxiety, complex PTSD, insomnia, mild depression, obsessive thinking. Goals: Takes medications as prescribed. ongoing Reports 10% improvement in anxiety and depression. partially achieved Reports 20-30% improvement in obsessive thinking. *partially achieved Reports 20% improvement in sleep. achieved Seeks out a therapist from [facility] Psychology Today link for a therapist who specializes in EMDR for PTSD. ongoing Reports 10-20% improvement in PTSD symptoms (medication and therapy). ongoing Returns for follow-up: 30 days Medications: Reduces Trazodone 100mg to 75mg @HS. Continues to take Klonopin 1mg @HS but discussed tapering off the medication over time by 0.5mg doses every 3 weeks. Buspar 7.5mg BID. Reviewed r/b/a, possible side effects of the medication. Client is aware about the benefit outweighs the risk. Klonopin managed by PCP. Patient is reminded that if there is SI to call 988 and get themselves to the closest ED for evaluation, otherwise contact me for other questions/concerns. Chief Complaint An interactive audio and video telecommunication system which permits real time communications between the patient (at the originating site) and provider (at the distant site) was utilized to provide this telehealth service. Verbal consent was requested and obtained from AKIL MICHELLE on this date, 01/07/2022 09:30 AM , for a telehealth visit. Patient reports, I saw Dr. Shakira hogan in [place], and he said he would send you my testing results from [facility] that I have some cognitive issues with the right side of my brain but did not feel it was Alzheimer's or dementia, but would also not rule it out as there is a history of Dementia in my family. History of Present Illness ?Both the patient, and family and caregivers and guardians as appropriate, were informed of the current need to conduct treatment via telephone. I have confirmed the patient?s identity via the following (minimum of three) acceptable identifiers as per Policy PH-9: , [place]S., home address.? Present Illness - anxiety, mild depression Characteristics/Recent psychiatric symptoms (pertinent positives and negatives) - reports neuro-psych results being discussed with her, gives her a somewhat clearer idea of what she is contending with, but does not alleviate her concerns overall. Reports Trazodone does help her with her sleep quality, but as she takes 100mg @HS, it can leave her dragging all day long, as Dr. Rosenberg in [place] said that she needs to be careful with her dosing as that can contribute to brain fog. Sleep averages 7-9 hrs, and will have 1 night a week of no sleep where her racing thoughts will keep her awake all night long and admits she will turn the TV on to help distract her, but is aware that TV at night is an issue. Reports per the testing in [place], she was told that there are some signs of ADD but not to the point of being medication management initiated. Reports not able to see depression is an issue for her, as her (more content not included)... Normal [facility] Office Visit (Neuro-General) on 12-17-2021 Follow-up visit Provider Impressions Insomnia The patient is doing better from a neurological standpoint. She states that since starting trazodone she is doing much better from a sleep standpoint. She will go to bed around 10 PM and will wake up around 7:30 AM. Some nights it takes her little bit longer to fall asleep and others. She does nap during the day. Her sleep study was negative for sleep apnea. She does feel groggy from time to time but this is nothing new. She is on numerous medications that could contribute to grogginess including clonazepam, Percocet, trazodone, tizanidine, and BuSpar. She feels that her migraines are better as well and she continues to follow with Dr. Basurto for them. She is taking an iron supplement due to the iron deficiency anemia found on her lab work. She is not taking a vitamin B12 supplement although her vitamin B12 lab was low normal. Plan: -She will continue her medications as prescribed. Her psychiatrist did increase her trazodone and gave her refills on this medication. -She will continue to follow with Dr. Basurto for her migraines. -She can start a vitamin B12 supplement, 1000 mcg [id number] daily. -She should continue her iron supplementation. -She was advised that she can follow-up with us as needed in the future as her psychiatrist did provide her refills on the trazodone, but we would be more than happy to refill this medication if she needs them in the future. Patient Discussion/Summary -It was nice seeing you for follow up. -Your labs showed that you have an iron deficiency, which can cause/worsen restless leg syndrome. You should follow up with your PCP for iron replacement. -I do want you to start a vitamin b12 supplement- 1000 mcg/daily. -Your sleep study was negative for sleep apnea. -As discussed, your grogginess could be due to the multiple medications you're on (Trazodone, percocet, Tizanidine2, Buspar, clonazepam). -You should continue following with psychiatry and Dr. Basurto. -You can follow up with Dr. Franco as needed, as your psychiatrist is handling your trazodone now. Diagnoses/Problems Assessed Insomnia (780.52) (G47.00) Orders Anxiety Continue: busPIRone HCl - 7.5 MG Oral Tablet; TAKE 1 TABLET TWICE DAILY as directed Insomnia, Mild depression Continue: traZODone HCl - 50 MG Oral Tablet; TAKE 1 TO 2 TABLETS AT BEDTIME NEEDED FOR INSOMNIA PMH: Tubal Ligation Continue: Magnesium 500 MG Oral Tablet; take 1 tab twice daily Continue: Widener 3 CAPS; TAKE DIRECTED Continue: Vitamin D TABS; TAKE 1 TABLET DAILY Unlinked Continue: Aspirin 81 MG TABS; TAKE 1 TABLET DAILY Continue: clonazePAM 2 MG Oral Tablet; take 1 tab at bedtime Continue: Folic Acid 1 MG Oral Tablet; TAKE 2 TABLETS ONCE A DAY Continue: Percocet 10-325 MG Oral Tablet (Oxycodone-Acetaminophen); Take as directed as needed Continue: Phenergan 25 MG TABS (Promethazine HCl); as needed Continue: tiZANidine HCl - 4 MG Oral Tablet; as needed Chief Complaint Neurologic Evaluation. sleep headaches History of Present Illness AKIL MICHELLE is a 46 year-old female who presents to the clinic today for sleep medicine and headache follow up. The patient has a pertinent past medical history of insomnia, anxiety, hemiplegic migraines, anxiety. The patient did have evaluation with Dr. Franco August 2021 and at that appointment she stated she has had migraines since her youngest child was born. Her headaches are always above her right eye and throbbing in nature. She will a low-grade headache daily that is between a 2 and 3 out of 10 in severity when he gets severe it is an 8 out of 10 in severity. She will have nausea but rarely vomits with her headaches. She does have phonophobia and photophobia. Smells can be a trigger for her migraines as well as changes in weather. She did see Dr. Vallecillo recently for headaches and she follows with Dr. Basurto in [place]. She has tried all the new injectables as well as Vyepti without success. She has also tried Botox without success. She has had insomnia for at least 10 years and it has worsened over the last 2 years. She has lights out at 10 PM and will take up to 3 hours to fall asleep. Sometimes she does not fall asleep at all. She will start her day at 6:30 AM, her sleep is not refreshing. Her does not hear her snoring and she does not stop breathing during the night. She does not nap during the day. She denies depression. She does not kick her legs prior to going to sleep. Her ESS score was a 1. She had been tried on Ambien, Lunesta, Sonata, amitriptyline, and she was currently on clonazepam. She also reported some short-term memory issues. She did complete a sleep hygiene program at [facility], records were not available for review. She was to have a restless leg work-up as well as a home sleep study and she was also to see psychiatry for treatment of anxiety and depression. She was advised to Dr. Franco would consider trazodone at her follow-up. Her home sleep (more content not included)... 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 Reviewed diagnostic impression, education about anxiety, complex PTSD, insomnia, mild depression, obsessive thinking, etiology, treatment recommendations including medication, therapy, course of treatment and prognosis. Increase taking Buspar from 5mg to 7.5mg twice daily for anxiety management. Continue taking Trazodone 50mg-100mg at bedtime for sleep aid. Continue taking Klonopin 2mg at bedtime but we will be starting taper schedule at next appt - reducing dose by 5mg every 3 weeks until done. Currently PCP has been managing the medication. Reviewed r/b/a, possible side effects of the medication. Client is aware about the benefit outweighs the risk. Patient is reminded that if there is SI to call 988 and get themselves to the closest ED for evaluation, otherwise contact me for other questions/concerns. Seek out a therapist who works with trauma therapies from provided link to Psychology Today website. Provider Impressions (Appt conducted via [employer] d/t COVID and patient gave verbal permission to have appt. via [employer]. Total length of call was 29 minutes.) Here for her first followup appt. More engaging and less nervous when seen in person at last appt. Uncertain if Buspar is helping her, but reports anxiety for 11 days was stable and not overwhelming her leading up to and while on vacation with her recently, but feels the anxiety can still be triggered by her worrying about things outside of her control. Reviewed and agreed to leaving meds/tx plan in place, but increase Buspar. Still has appts with neurology and psych-neurology about memory, syncopal issues. Based on her HPI, and presentation including cooperative demeanor, clear speech, DX are as follows: anxiety, complex PTSD, insomnia, mild depression, obsessive thinking. Goals: Takes medications as prescribed. ongoing Reports 10% improvement in anxiety and depression. partially achieved Reports 20-30% improvement in obsessive thinking. ongoing Reports 20% improvement in sleep. partially achieved Seeks out a therapist from provided Psychology Today link for a therapist who specializes in EMDR for PTSD. ongoing Reports 10-20% improvement in PTSD symptoms (medication and therapy). ongoing Returns for follow-up: 30 days Medications: Trazodone 100mg @HS. Continues to take Klonopin 2mg @HS but discussed tapering off the medication over time by 0.5mg doses every 3 weeks. Increases Buspar 5mg to 7.5mg BID. Reviewed r/b/a, possible side effects of the medication. Client is aware about the benefit outweighs the risk. Klonopin managed by PCP. Patient is reminded that if there is SI to call 988 and get themselves to the closest ED for evaluation, otherwise contact me for other questions/concerns. Chief Complaint An interactive audio and video telecommunication system which permits real time communications between the patient (at the originating site) and provider (at the distant site) was utilized to provide this telehealth service. Verbal consent was requested and obtained from AKIL MICHELLE on this date, 12/12/2021 10:30 AM , for a telehealth visit. Patient reports, I am ok. I just got back from [facility] after 10 day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 that she developed migraines. She states that the headache is always above her right eye and is throbbing in nature. She states that she has a low-grade headache daily that is between 2-3 out of 10 in severity and that when it gets severe it can be up to an 8-10 out of 10 in severity. The patient states that she has nausea but rarely vomits. She does have photophobia and rarely phonophobia. She states that smells can be a trigger for her headaches as well as changes in the weather. The patient recently saw Dr. Benavidez for headaches and she follows with Dr. Basurto in [place]. The patient has tried all of the new injectables and also Vyepti that significant success. The patient has also had Botox without improvement. The patient states that she has had insomnia for about the last 10 years. She feels that these issues have worsened in the last 2 years. She has lights out at 10 PM and it can take her up to 3 hours to fall asleep. The patient states that there is some nights she does not sleep at all. The patient will wake for the day at 6:30 AM and she does not feel that her sleep is refreshing. The patient's does not feel that she stops breathing or snores at night. She does not nap during the day. She denies depression and she does not kick her legs prior to going to sleep. The patient's Camas Sleepiness Scale score today was 1. The patient has tried Ambien, Lunesta, Sonata, amitriptyline and the patient is currently on clonazepam. The patient feels at times that she has anxiety. The patient states that she underwent a 3-week program for sleep hygiene at the [facility] but it did not help her significantly. I do not have a copy of any of the evaluations that were done at the [facility] The patient also feels that over the last year she has had some short-term memory issues. Her feels that she will ask things that she knew the answer to in the morning but forgot later in the day. Review of Systems Constitutional: no fever, no unexplained weight gain and no unexplained weight loss. Eyes: no blurred vision (more content not included)... Normal [employer] Tobacco Screening.on Fall risk assessment c) Not medically indicated [facility] 204 Work Phone: Tobacco use status CP b) No [facility] 204 Work Phone: Office Visit (Neuro-General) on 06-22-2021 Follow-up visit Provider Impressions Patient with history of hemiplegic migraines with recent passing out episodes for the last 6 to 8 months. Episodes could be related to narcolepsy, possibly from 2-3 hours of sleep per night for several nights in a row, does not appear to be vasovagal. Referral to sleep expert, medication management of sleep may be helpful to reduce the frequency and severity of migraine episodes. The options below were discussed with patient, she will follow up with Dr. Basurto. Patient Discussion/Summary Lack of sleep seems to be biggest trigger for headaches, improving sleep may help with the passing out episodes. Referred to Dr. Barrios for further evaluation and treatment. Consider Neuropsychological workup for memory difficulties after topiramate taper and/or sleep difficulties addressed. Continue taper of topiramate and check for memory difficulties, consider returning to original dose if symptoms improved with better sleep. May also try Nurtec as preventive for migraines, acetazolamide as an alternative, or a long acting form of topiramate to reduce side effects. Consider repeating botox with shots included in trapezius, cervical paraspinal, temporal and occipital regions as well, as it was initially helpful with done with full distribution. Vyepti seems an unlikely cause of passing out episodes. Follow up with Dr. Basurto. 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) Orders Insomnia Adult Sleep Medicine Referral Evaluation and Treatment Evaluate AND Treat insomnia with possible narcoleptic episodes and lack of sleep contributing to headaches in patient with history of hemiplegic migraine. Status: Hold For - Scheduling Requested for: 22Jun2021 Chief Complaint Headaches History of Present Illness Patient presents for second opinion consult for hemiplegic migraines with history significant for kidney stones, migraine with aura. Family with history of dementia. History of left ovary removed for ovarian cysts. Sees Dr. Basurto at [facility]. Reports Hemiplegic migraines 4-5 years, numbness right face and right arm, speech difficulties. CT scan was normal, diagnosed as complex migraine. Will feel fuzzy in head prior to episodes now. Daily lower level headache 2/10, more severe headaches 10/10 that occur once weekly, same pattern for 9 years. Feels much better during vacations in [place]. Headaches seem tied to her sleep, not being able to sleep well for multiple nights. Described as right front forehead. Headaches associated with nausea with rare vomiting, dizziness, photophobia/phonophobia. Triggers include lack of sleep, weather changes (pressure drops), smells, light (bright lights, big adjustments in light), Alcohol (red wine, beer), certain foods. Denies triggers to stress, sound. 6-8 months ago with new symptoms of syncope. After awakening it takes a couple of minutes with memory difficulties, cannot remember who her is. She can awaken in middle of night not knowing where she is. Sometimes does not remember saying things that she said before. Since then has reduced Topamax in the past month, has not yet noticed a change in her recent symptoms. Notes that she has been found asleep in closet or shower without striking head. Has collapsed while talking to in kitchen. Seems different than when she nods off (can be awoken easily) vs with passing out episodes where she is confused when aroused. Sleep has been bad for years. 3-4 nights 2 hours a night of sleep, then crashes, sleeps okay, then head will feel better. Denies depression, some anxiety related to health condition. Occasional Caffeine use, not helpful for headaches. Has completed surgery for nerve removal for migraines, but migraines did not improve, right eye bothers her after surgery. CT scan in 03/2021 was normal per patient. Completed a sleep study in which she was observed after sleep deprivation (was not awakened during test), and sent home with equipment to have sleep observed at home. Has tried the following medications and treatments: Naratripan has not yet noticed if it helps. Nurtec only helpful if done to prevent a headache when taken before. Has not tried as a preventative. Percocet if other medications not effective. Topiramate was helpful but concerns if it could be related to recent memory issues. Was on 800mg prior to tapering. Does not seem to be related to kidney stones due to composition. Amitrtipyline with hallucinations Gabapentin ankle swelling Amerge helped in beginning, but later less effective Imitrex not effective Tizanidine can be helpful to stop headaches from progressing Vyepti felt like it may have been helping but overlapped with the syncope episodes 3 days a month with infusion of Ativan, phnergan, DHE, Toradol, Decadron, Depacon which is helpful for headaches, helps allow to sleep for a week. Past Meds: Ondansetron helpful for nausea Promethazine helpful fo (more content not included)... Normal [facility] .Auto Diffon 11-05-2019 Ammonia (P) [Mass/Vol] 0.40 10 3/mcL Normal 0.09-1.40 [facility] ([place]) Comment on above: Performed By: #### C BRE WATKINS ANEU #### [address] [address] #### CMP, LIP, GFR #### [address] [address] Basophils (Bld) [#/Vol] 0.00 10 3/mcL Normal 0.00-0.27 [facility] ([place]) Comment on above: Performed By: #### BRE MORENO ANEU #### [address] [address] #### CMP, LIP, GFR #### [address] [address] Basophils/100 WBC (Bld) 0.5 % Normal 0.0-2.5 [facility] ([place]) Comment on above: Performed By: #### C BRE WATKINS ANEU #### [address] [address] #### CMP, LIP, GFR #### [address] [address] Eosinophils (Bld) [#/Vol] 0.10 10 3/mcL Normal 0.00-0.65 [facility] ([place]) Comment on above: Performed By: #### BRE MORENO ANEU #### [address] [address] #### CMP, LIP, GFR #### [address] [address] Eosinophils/100 WBC (Bld) 2.5 % Normal 0.0-6.0 [facility] ([place]) Comment on above: Performed By: #### C BC, ADIFF, ANEU #### [address] [address] #### CMP, LIP, GFR #### [address] [address] Lymphocytes (Bld) [#/Vol] 2.10 10 3/mcL Normal 0.90-4.32 [facility] ([place]) Comment on above: Performed By: #### C BC, ADIFF, ANEU #### [address] [address] #### CMP, LIP, GFR #### [address] [address] Lymphocytes/100 WBC (Bld) 39.8 % Normal 20.0-40.0 [facility] ([place]) Comment on above: Performed By: #### C BC, ADIFF, ANEU #### [address] [address] #### CMP, LIP, GFR #### [address] [address] Monocytes/100 WBC (Bld) 7.2 % Normal 2.0-13.0 [facility] ([place]) Comment on above: Performed By: #### C BC, ADIFF, ANEU #### [address] [address] #### CMP, LIP, GFR #### [address] [address] Neutrophils/100 WBC (Bld) 50.0 % Normal 50.0-75.0 [facility] ([place]) Comment on above: Performed By: #### C BC, ADIFF, ANEU #### [address] [address] #### CMP, LIP, GFR #### [address] [address] .GFRon 11-05-2019 GFR >60 Normal [facility] ([place]) Comment on above: Result Comment: GFR Population mean for , Non- Americans Ages 20-29 = 116 mL/min/1.73 sq.m. Ages 30-39 = 107 mL/min/1.73 sq.m. Ages 40-49 = 99 mL/min/1.73 sq.m. Ages 50-59 = 93 mL/min/1.73 sq.m. Ages 60-69 = 85 mL/min/1.73 sq.m. Ages 70+ = 75 mL/min/1.73 sq.m. Chronic Kidney Disease: Less than 60 mL/min/1.73 square meters End Stage Renal Disease: Less than 15 mL/min/1.73 square meters Performed By: #### C BCBRE, ANEU #### [address] [address] #### CMP, LIP, GFR #### [place] [address] GFR Non- >60 Normal [facility] ([place]) Comment on above: Result Comment: GFR Population mean for , Non- Americans Ages 20-29 = 116 mL/min/1.73 sq.m. Ages 30-39 = 107 mL/min/1.73 sq.m. Ages 40-49 = 99 mL/min/1.73 sq.m. Ages 50-59 = 93 mL/min/1.73 sq.m. Ages 60-69 = 85 mL/min/1.73 sq.m. Ages 70+ = 75 mL/min/1.73 sq.m. Chronic Kidney Disease: Less than 60 mL/min/1.73 square meters End Stage Renal Disease: Less than 15 mL/min/1.73 square meters Performed By: #### C BC, ADIFF, ANEU #### [address] [address] #### CMP, LIP, GFR #### [place] [id number] .NEUABSon 11-05-2019 Neutrophils (Bld) [#/Vol] 2.70 10 3/mcL Normal 2.25-8.10 [facility] ([place]) Comment on above: Performed By: #### C BC, ADIFF, ANEU #### [place] [address] #### CMP, LIP, GFR #### [place] [address] .Urinalysis Microscopic (AO) on 11-05-2019 RBC (U) [#/Vol] LOADED None Seen [facility] ([place]) Comment on above: Performed By: #### C BC, ADIFF, ANEU #### [place] [address] #### CMP, LIP, GFR #### [place] [address] UA Bacteria Trace [facility] ([place]) Comment on above: Performed By: #### C BC, ADIFF, ANEU #### [place] [address] #### CMP, LIP, GFR #### [place] [address] UA CA Ox Crystal Trace On License Of [facility] ([place]) Comment on above: Performed By: #### C BC, ADIFF, ANEU #### [place] [address] #### CMP, LIP, GFR #### [place] [address] UA Mucous Trace Normal [facility] ([place]) Comment on above: Performed By: #### C BC, ADIFF, ANEU #### [place] [address] #### CMP, LIP, GFR #### [place] [address] UA Squam Epithelial 0-5 None Seen [facility] ([place]) Comment on above: Performed By: #### C BC, ADIFF, ANEU #### [place] [address] #### CMP, LIP, GFR #### [address] [address] UA WBC 0-5 None Seen [facility] ([place] Comment on above: Performed By: #### C BC, ADIFF, ANEU #### [address] [address] #### CMP, LIP, GFR #### [address] [address] BMPon 11-05-2019 Calcium [Mass/Vol] 7.7 mg/dL Low 8.4-10.1 [facility] ([place]) Comment on above: Performed By: #### C BC, ADIFF, ANEU #### [address] [address] #### CMP, LIP, GFR #### [place] [address] Chloride [Moles/Vol] 119 mmol/L High 98-110 [facility] ([place]) Comment on above: Performed By: #### C BC, ADIFF, ANEU #### [address] [address] #### CMP, LIP, GFR #### [place] [address] CO2 [Moles/Vol] 20 mmol/L Low 22-32 [facility] ([place]) Comment on above: Performed By: #### C BC, ADIFF, ANEU #### [place] [address] #### CMP, LIP, GFR #### [address] [address] Creatinine [Mass/Vol] 0.86 mg/dL Normal 0.50-1.20 [facility] ([place]) Comment on above: Performed By: #### C BC, ADIFF, ANEU #### [address] [address] #### CMP, LIP, GFR #### [place] [address] Electrolyte Balance 6.0 mEq/L Normal 4.0-15.0 [facility] ([place] Comment on above: Performed By: #### C BC, ADIFF, ANEU #### [address] [address] #### CMP, LIP, GFR #### [address] [address] Glucose [Mass/Vol] 80 mg/dL Normal 70-110 [facility] ([place]) Comment on above: Performed By: #### C BC, ADIFF, ANEU #### [address] [address] #### CMP, LIP, GFR #### [address] [address] Potassium [Moles/Vol] 3.5 mmol/L Normal 3.5-5.0 [facility] ([place]) Comment on above: Performed By: #### C BC, ADIFF, ANEU #### [address] [address] #### CMP, LIP, GFR #### [address] [address] Sodium [Moles/Vol] 145 mmol/L Normal 136-145 [facility] ([place]) Comment on above: Performed By: #### C BC, ADIFF, ANEU #### [address] [address] #### CMP, LIP, GFR #### [address] [address] Urea nitrogen [Mass/Vol] 21.0 mg/dL Normal 8.0-22.0 [facility] ([place]) Comment on above: Performed By: #### C BC, ADIFF, ANEU #### [address] [address] #### CMP, LIP, GFR #### [address] [address] Urea nitrogen/Creatinine [Mass ratio] 24.4 ratio High 10.0-22.0 [facility] ([place]) Comment on above: Performed By: #### C BC, ADIFF, ANEU #### [address] [address] #### CMP, LIP, GFR #### [address] [address] CBCon 11-05-2019 Erythrocyte distribution width (RBC) [Ratio] 14.3 % Normal 11.5-15.5 [facility] ([place]) Comment on above: Performed By: #### C BRE WATKINS, ANEU #### [place] [address] #### CMP, LIP, GFR #### [place] [address] Hematocrit (Bld) [Volume fraction] 37.4 % Normal 34.0-46.0 [facility] ([place]) Comment on above: Performed By: #### C BRE WATKINS, ANEU #### [place] [address] #### CMP, LIP, GFR #### [place] [address] Hemoglobin (Bld) [Mass/Vol] 12.3 G/dL Normal 12.0-16.0 [facility] ([place]) Comment on above: Performed By: #### C BRE WATKINS, ANEU #### [place] [address] #### CMP, LIP, GFR #### [place] [address] MCH (RBC) [Entitic mass] 29.7 pg Normal 27.0-33.0 [facility] ([place]) Comment on above: Performed By: #### C BRE WATKINS, ANEU #### [place] [address] #### CMP, LIP, GFR #### [place] [id number] MCHC (RBC) [Mass/Vol] 32.9 G/dL Normal 32.0-36.0 [facility] ([place]) Comment on above: Performed By: #### C BRE WATKINS, ANEU #### [address] [address] #### CMP, LIP, GFR #### [address] [address] MCV (RBC) [Entitic vol] 90.5 fL Normal 80.0-99.0 [facility] ([place]) Comment on above: Performed By: #### C BC, ADIFF, ANEU #### [place] [address] #### CMP, LIP, GFR #### [address] [address] Platelet mean volume (Bld) [Entitic vol] 7.9 fL Normal 6.6-10.5 [facility] ([place]) Comment on above: Performed By: #### C BC, ADIFF, ANEU #### [place] [address] #### CMP, LIP, GFR #### [address] [address] Platelets (Bld) [#/Vol] 137 10 3/mcL Low 150-450 [facility] ([place]) Comment on above: Performed By: #### C BC, ADIFF, ANEU #### [place] [address] #### CMP, LIP, GFR #### [address] [address] RBC (Bld) [#/Vol] 4.14 10 6/mcL Normal 4.10-5.30 [facility] ([place]) Comment on above: Performed By: #### C BC, ADIFF, ANEU #### [place] [address] #### CMP, LIP, GFR #### [address] [address] WBC (Bld) [#/Vol] 5.30 10 3/mcL Normal 4.50-10.80 [facility] ([place]) Comment on above: Performed By: #### C BC, ADIFF, ANEU #### [place] [address] #### CMP, LIP, GFR #### [address] [address] [address] ABDOMEN/PELVIS W/O CONTRA STon 11-05-2019 CT ABDOMEN/PELVIS W/O CONTRAST ORIGINAL CT ABDOMEN/PELVIS W/O CONTRAST, 11/05/2019 12:17 PM INDICATION: RIGHT flank pain COMPARISON: July 2019 Technique: CT of the abdomen and pelvis with sagittal and coronal reconstructions. This exam was performed according to our departmental dose optimization program, and includes the following measures where applicable: automated exposure control, adjustment of the mAs and/or kVp according to patient size and/or exam, and an iterative reconstruction algorithm. FINDINGS: There is a 9 mm calcification in the RIGHT collecting system, at or just proximal to the UPJ. There is at most mild RIGHT hydronephrosis. There is a small calcification in the LEFT renal hilum. There are no ureteral stones on either side. The visualized portions of the remaining abdominal organs are unremarkable in appearance. Bowel is poorly evaluated in the absence of oral contrast. There is no free fluid. There are surgical clips in the LEFT upper quadrant. IMPRESSION: 1. The previously seen RIGHT renal stone is now at or near the ureteropelvic junction; there is at most mild hydronephrosis. 2. tubal ligation clips have migrated into the LEFT upper quadrant. Interpreted By: Lorenzo Lawler MD Preliminary Report By: Lorenzo Lawler MD Electronically Signed By: Lorenzo aLwler MD Dictated Date: 11/05/2019 12:53:32 PM Prelim Date: 11/05/2019 12:53:32 PM Sign Date: 11/05/2019 12:57:34 PM Ordering Provider:Dk Mcneal Normal [facility] ([place]) PREGUon 11-05-2019 HCG ( test) Ql (U) Negative Normal [facility] ([place]) Comment on above: Performed By: #### C BRE WATKINS ANEU #### [facility] [address] [address] #### CMP, LIP, GFR #### [facility] [address] [place] [id number] test (u) int HCG not detected. [facility] ([place]) Comment on above: Performed By: #### C BC, ADIFF, ANEU #### [place] [address] #### CMP, LIP, GFR #### [place] [id number] UAon 11-05-2019 Color (U) Yellow Normal [facility] ([place]) Comment on above: Performed By: #### C BC, ADIFF, ANEU #### [place] [address] #### CMP, LIP, GFR #### [place] [address] Glucose (U) [Mass/Vol] Negative Normal Negative [facility] ([place]) Comment on above: Performed By: #### C BC, ADIFF, ANEU #### [place] [address] #### CMP, LIP, GFR #### [place] [address] Ketones Ql (U) Negative Normal Negative [facility] ([place]) Comment on above: Performed By: #### C BC, ADIFF, ANEU #### [place] [address] #### CMP, LIP, GFR #### [place] [address] UA Appear Slightly Cloudy Clear [facility] ([place]) Comment on above: Performed By: #### C BC, ADIFF, ANEU #### [place] [address] #### CMP, LIP, GFR #### [place] [address] UA Blood Large Negative [facility] ([place] Comment on above: Performed By: #### C BC, ADIFF, ANEU #### [place] [address] #### CMP, LIP, GFR #### [place] [phone] UA Leuk Est Negative Normal Negative [facility] ([place]) Comment on above: Performed By: #### C BC, ADIFF, ANEU #### [place] [address] #### CMP, LIP, GFR #### [place] [phone] UA Nitrite Negative Normal Negative [facility] ([place] Comment on above: Performed By: #### C BC, ADIFF, ANEU #### [place] [address] #### CMP, LIP, GFR #### [place] [address] UA pH 6.0 Normal 5.0 - 8.0 [facility] ([place]) Comment on above: Performed By: #### C BC, ADIFF, ANEU #### [place] [address] #### CMP, LIP, GFR #### [place] [address] UA Protein 100 mg/dL Negative [facility] ([place] Comment on above: Performed By: #### C BC, ADIFF, ANEU #### [place] [address] #### CMP, LIP, GFR #### [place] [address] UA Spec Grav >=1.030 1.015-1.02 5 [facility] ([place]) Comment on above: Performed By: #### C BC, ADIFF, ANEU #### [place] [address] #### CMP, LIP, GFR #### [place] [address] UA Specimen Type Clean Catch Normal [facility] ([place] Comment on above: Performed By: #### C BC, ADIFF, ANEU #### [place] [address] #### CMP, LIP, GFR #### [place] [id number] UA Urobilinogen 0.2 E.U./dL Normal 0.2-1.0 [facility] ([place]) Comment on above: Performed By: #### C BC, ADIFF, ANEU #### [address] [address] #### CMP, LIP, GFR #### [place] [address] Urobilinogen Qn (U) Negative Normal Negative [facility] ([place]) Comment on above: Performed By: #### C BC, ADIFF, ANEU #### [place] [address] #### CMP, LIP, GFR #### [place] [address] CURon 08-01-2019 CUR . MICRO - Microbiology PROCEDURE: Urine Culture [*1] SOURCE: Urine BODY SITE: COLLECTED DATE/TIME: 07/30/2019 12:16 EDT RECEIVED DATE/TIME: 07/30/2019 19:48 EDT START DATE/TIME: 07/30/2019 19:48 EDT FREE TEXT SOURCE: FINAL REPORTS Final Report [] Verified Date/Time/Personnel: 08/01/2019 07:57 EDT 100,000 organisms per mL Mixed without predominant isolate(s). Sensitivity Testing not indicated. Probably contamination. Repeat culture suggested. PRELIMINARY REPORTS Preliminary Report [] Verified Date/Time/Personnel: 07/31/2019 13:45 EDT Culture results pending. Performing Locations *1: This test was performed at: [address], [address] [place] [address] ([place]) Comment on above: Performed By: #### C UR ####[place] [address] .Auto Diffon 07-31-2019 Ammonia (P) [Mass/Vol] 0.40 10 3/mcL Normal 0.15-1.00 [facility] ([place]) Comment on above: Performed By: #### C BC, ADIFF, ANEU ####[address] [address]#### CMP, LIP, GFR ####[facility] [address] Basophils (Bld) [#/Vol] 0.00 10 3/mcL Normal 0.00-0.19 [facility] ([place]) Comment on above: Performed By: #### C BRE WATKINS, ANEU ####[facility] [address] [place] [address]#### CMP, LIP, GFR ####[address] [address] Basophils/100 WBC (Bld) 0.6 % Normal 0.0-2.5 [facility] ([place]) Comment on above: Performed By: #### C BRE WATKINS, ANEU ####[facility] [address] [address]#### CMP, LIP, GFR ####[address] [address] Eosinophils (Bld) [#/Vol] 0.10 10 3/mcL Normal 0.00-0.40 [facility] ([place]) Comment on above: Performed By: #### C BRE WATKINS, ANEU ####[place] [address]#### CMP, LIP, GFR ####[address] [address] Eosinophils/100 WBC (Bld) 1.7 % Normal 0.0-7.0 [facility] ([place]) Comment on above: Performed By: #### C BRE WATKINS, ANEU ####[facility] [place] [address]#### CMP, LIP, GFR ####[address] [address] Lymphocytes (Bld) [#/Vol] 1.60 10 3/mcL Normal 0.77-3.85 [facility] ([place]) Comment on above: Performed By: #### C ROLAND ADIFF, ANEU ####[facility] [address] [address]#### CMP, LIP, GFR ####[address] [address] Lymphocytes/100 WBC (Bld) 29.0 % Normal 10.0-50.0 [facility] ([place]) Comment on above: Performed By: #### C TYRA WATKINSIFF, ANEU ####[facility] [address] [place], [place] [address]#### CMP, LIP, GFR ####[address] [address] Monocytes/100 WBC (Bld) 6.8 % Normal 1.7-13.0 [facility] ([place] Comment on above: Performed By: #### C BCTYRAIFF, ANEU ####[facility] [address] [address]#### CMP, LIP, GFR ####[address] [address] Neutrophils/100 WBC (Bld) 61.9 % Normal 37.0-80.0 [facility] ([place]) Comment on above: Performed By: #### BRE MORENO, ANEU ####[facility] [place] [address]#### CMP, LIP, GFR ####[address] [address] .GFRon 07-31-2019 GFR Non- 64 ml/min/1.73sqm Normal [facility] ([place]) Comment on above: Result Comment: GFR Population mean for , Non- Americans Ages 20-29 = 116 mL/min/1.73 sq.m. Ages 30-39 = 107 mL/min/1.73 sq.m. Ages 40-49 = 99 mL/min/1.73 sq.m. Ages 50-59 = 93 mL/min/1.73 sq.m. Ages 60-69 = 85 mL/min/1.73 sq.m. Ages 70+ = 75 mL/min/1.73 sq.m. Chronic Kidney Disease: Less than 60 mL/min/1.73 square meters End Stage Renal Disease: Less than 15 mL/min/1.73 square meters Performed By: #### C BC ADIFF, ANEU #### [facility] [address] [address] #### CMP, LIP, GFR #### [facility] [address] [place] [address] GFR 77 ml/min/1.73sqm Normal [facility] ([place]) Comment on above: Result Comment: GFR Population mean for , Non- Americans Ages 20-29 = 116 mL/min/1.73 sq.m. Ages 30-39 = 107 mL/min/1.73 sq.m. Ages 40-49 = 99 mL/min/1.73 sq.m. Ages 50-59 = 93 mL/min/1.73 sq.m. Ages 60-69 = 85 mL/min/1.73 sq.m. Ages 70+ = 75 mL/min/1.73 sq.m. Chronic Kidney Disease: Less than 60 mL/min/1.73 square meters End Stage Renal Disease: Less than 15 mL/min/1.73 square meters Performed By: #### C BRE WATKINS, ANEU #### [facility] [place] [address] [place] [address] #### CMP, LIP, GFR #### [place] [address] .NEUABSon 07-31-2019 Neutrophils (Bld) [#/Vol] 3.50 10 3/mcL Normal 2.85-6.16 [facility] ([place]) Comment on above: Performed By: #### C BRE WATKINS, ANEU ####[place] [address]#### CMP, LIP, GFR ####[place] [address] .Urinalysis Microscopic (AO) on 07-31-2019 RBC (U) [#/Vol] None Seen Normal None Seen [facility] ([place] Comment on above: Performed By: #### U A, UAMICAO ####[place] [address] UA Squam Epithelial 0-5 None Seen [facility] ([place]) Comment on above: Performed By: #### U A, UAMICAO ####[place] [address] UA WBC None Seen Normal None Seen [facility] ([place]) Comment on above: Performed By: #### Valdez Schulz UAMICAO ####[place] [address] CBCon 07-31-2019 Erythrocyte distribution width (RBC) [Ratio] 13.9 % Normal 11.5-14.5 [facility] ([place]) Comment on above: Performed By: #### C BRE WATKINS, ANEU ####[facility] [place] [address]#### CMP, LIP, GFR ####[place] [address] Hematocrit (Bld) [Volume fraction] 38.2 % Normal 37.0-47.0 [facility] ([place]) Comment on above: Performed By: #### BRE MORENO, ANEU ####[place] [address]#### CMP, LIP, GFR ####[place] [address] Hemoglobin (Bld) [Mass/Vol] 12.6 G/dL Normal 12.0-16.0 [facility] ([place]) Comment on above: Performed By: #### BRE MORENO, ANEU ####[facility] [address]#### CMP, LIP, GFR ####[place] [address] MCH (RBC) [Entitic mass] 29.6 pg Normal 27.0-31.2 [facility] ([place] Comment on above: Performed By: #### C BRE WATKINS, ANEU ####[facility] [place] [address]#### CMP, LIP, GFR ####[place] [address] MCHC (RBC) [Mass/Vol] 33.1 G/dL Normal 33.0-37.0 [facility] ([place]) Comment on above: Performed By: #### BRE MORENO, ANEU ####[facility] [address] [place], [place] [address]#### CMP, LIP, GFR ####[address] [address] MCV (RBC) [Entitic vol] 89.6 fL Normal 80.0-94.0 [facility] ([place]) Comment on above: Performed By: #### C BRE WATKINS, ANEU ####[facility] [address] [place] [address]#### CMP, LIP, GFR ####[address] [address] Platelet mean volume (Bld) [Entitic vol] 8.1 fL Normal 7.4-10.4 [facility] ([place]) Comment on above: Performed By: #### BRE MORENO, ANEU ####[place] [address]#### CMP, LIP, GFR ####[address] [address] Platelets (Bld) [#/Vol] 189 10 3/mcL Normal 130-400 [facility] ([place]) Comment on above: Performed By: #### BRE MORENO, ANEU ####[facility] [place] [address]#### CMP, LIP, GFR ####[address] [address] RBC (Bld) [#/Vol] 4.27 10 6/mcL Normal 4.20-5.40 [facility] ([place]) Comment on above: Performed By: #### C TYRA WATKINSIFF, ANEU ####[facility] [place] [address]#### CMP, LIP, GFR ####[address] [address] WBC (Bld) [#/Vol] 5.60 10 3/mcL Normal 4.60-10.80 [facility] ([place]) Comment on above: Performed By: #### BRE MORENO, ANEU ####[place] [address]#### CMP, LIP, GFR ####[address] [address] CMPon 07-31-2019 Albumin [Mass/Vol] 3.2 G/dL Low 3.5-5.0 [facility] ([place]) Comment on above: Performed By: #### C BC, ADIFF, ANEU ####[place] [address]#### CMP, LIP, GFR ####[place] [address] Albumin/Globulin [Mass ratio] 1.0 {ratio} Low 1.1-2.5 [facility] ([place]) Comment on above: Performed By: #### C BC, ADIFF, ANEU ####[place] [address]#### CMP, LIP, GFR ####[place] [address] ALP [Catalytic activity/Vol] 95 U/L Normal 40-135 [facility] ([place]) Comment on above: Performed By: #### C BC, ADIFF, ANEU ####[place] [address]#### CMP, LIP, GFR ####[place] [address] ALT [Catalytic activity/Vol] 36 U/L High 10-35 [facility] ([place]) Comment on above: Performed By: #### C BC, ADIFF, ANEU ####[place] [address]#### CMP, LIP, GFR ####[address] [address] AST [Catalytic activity/Vol] 30 U/L Normal 10-40 [facility] ([place]) Comment on above: Performed By: #### C BC, ADIFF, ANEU ####[place] [address]#### CMP, LIP, GFR ####[address] [address] Bili Total 0.2 mg/dL Normal 0.2-1.0 [facility] ([place]) Comment on above: Performed By: #### C BRE WATKINS, ANEU ####[facility] [place] [address]#### CMP, LIP, GFR ####[place] [address] Calcium [Mass/Vol] 8.5 mg/dL Normal 8.4-10.2 [facility] ([place]) Comment on above: Performed By: #### C ROLAND ADIFF, ANEU ####[place] [address]#### CMP, LIP, GFR ####[place] [address] Chloride [Moles/Vol] 109 mmol/L High 98-107 [facility] ([place]) Comment on above: Performed By: #### C BRE WATKINS, ANEU ####[facility] [place] [address]#### CMP, LIP, GFR ####[place] [address] CO2 [Moles/Vol] 23 mmol/L Normal 22-29 [facility] ([place]) Comment on above: Performed By: #### C BRE WATKINS, ANEU ####[facility] [place] [address]#### CMP, LIP, GFR ####[place] [address] Creatinine [Mass/Vol] 0.95 mg/dL Normal 0.55-1.02 [facility] ([place]) Comment on above: Performed By: #### C BCTYRAIFF, ANEU ####[facility] [address] [place] [address]#### CMP, LIP, GFR ####[place] [address] Electrolyte Balance 10.0 mEq/L Normal [facility] ([place] Comment on above: Performed By: #### C BC ADIFF, ANEU ####[facility] [place] [address]#### CMP, LIP, GFR ####[address] [address] Globulin (S) [Mass/Vol] 3.1 G/dL Normal [facility] ([place]) Comment on above: Performed By: #### C BC, ADIFF, ANEU ####[facility] [address] [id number]#### CMP, LIP, GFR ####[address] [address] Glucose [Mass/Vol] 117 mg/dL High 70-105 [facility] ([place]) Comment on above: Performed By: #### C BC, ADIFF, ANEU ####[facility] [address] [id number]#### CMP, LIP, GFR ####[address] [address] Potassium [Moles/Vol] 3.5 mmol/L Normal 3.5-5.1 [facility] ([place] Comment on above: Performed By: #### C BC, ADIFF, ANEU ####[facility] [place] [id number]#### CMP, LIP, GFR ####[address] [address] Protein [Mass/Vol] 6.3 G/dL Low 6.4-8.2 [facility] ([place]) Comment on above: Performed By: #### C BC, ADIFF, ANEU ####[facility] [address] [place] [address]#### CMP, LIP, GFR ####[address] [address] Sodium [Moles/Vol] 142 mmol/L Normal 136-145 [facility] ([place]) Comment on above: Performed By: #### C BC, ADIFF, ANEU ####[facility] [address] [place] [id number]#### CMP, LIP, GFR ####[facility] [place] [address] Urea nitrogen [Mass/Vol] 8 mg/dL Normal 7-18 [facility] ([place]) Comment on above: Performed By: #### C BC, ADIFF, ANEU ####[facility] [address] [place], [place] [address]#### CMP, LIP, GFR ####[facility] [place] [address] Urea nitrogen/Creatinine [Mass ratio] 8 ratio Normal 7-27 [facility] ([place]) Comment on above: Performed By: #### C BC, ADIFF, ANEU ####[facility] [address] [place], [place] [address]#### CMP, LIP, GFR ####[place] [address] [place] [address] [address] ABD/PELVIS W/ IV CONTRAST ONLYon 07-31-2019 CT ABD/PELVIS W/ IV CONTRAST ONLY ORIGINAL CT ABD/PELVIS W/ IV CONTRAST ONLY CLINICAL STATEMENT: Pain, worse on the RIGHT. History of cholecystectomy. COMPARISON: Pelvic ultrasound 07/30/2019 TECHNIQUE: Axial images were obtained from the lung bases through the pubic symphysis after the administration of IV contrast. Coronal and sagittal reformatted images were generated from the axial dataset. This exam was performed according to our departmental dose optimization program, and includes the following measures where applicable: automated exposure control, adjustment of the mAs and/or kVp according to patient size and/or exam, and an iterative reconstruction algorithm. FINDINGS: The liver, spleen, pancreas and adrenal glands are normal. The gallbladder is nonvisualized, concordant with patient's given history of cholecystectomy. The common bile duct is dilated, 1.2 cm. No obstructive etiology is identified. There is bilateral nephrolithiasis, with the larger stone measuring 7 mm in the RIGHT renal pelvis. There is a RIGHT extrarenal pelvis versus parapelvic cyst. No evidence of obstructive uropathy. The uterus is ill-defined, and with fluid within the endometrial canal. A RIGHT adnexal 2.2 cm follicle is noted, better appreciated on yesterday's ultrasound. The esophagus and stomach are normal. The large and small bowel are fluid filled but not dilated. There is no obvious bowel wall thickening or transition point/caliber change. There are no obvious inflammatory mesenteric findings. The appendix is normal. There is a small amount of free fluid within the pelvis. Tubal ligation clips are noted. No free abdominal air. The aorta and IVC are normal in course and caliber. No lymphadenopathy is identified. Lung bases demonstrate no focal consolidation. The heart is normal in size. No acute or suspicious osseous abnormalities. There is small amount of soft tissue induration in the gluteal regions bilaterally. No underlying fluid collection. IMPRESSION: 1. Fluid-filled but nondilated large and small bowel. Findings could be indicative of enteritis or ileus in the proper clinical setting. 2. Common bile duct is dilated at 1.2 cm. No obstructive etiology is identified and this likely relates to postcholecystectomy status. 3. Bilateral nonobstructive pelvic nephrolithiasis. 4. Small amount of fluid within the endometrial canal, possibly due to the phase of menstrual cycle.. I have personally reviewed the images of this examination and agree with the resident's findings and interpretation. Interpreted By: Tono Camarena MD Preliminary Report By: Alexandre Zuniga MD Electronically Signed By: Tono Camarena MD Dictated Date: 07/31/2019 3:50:53 PM Prelim Date: 07/31/2019 4:05:39 PM Sign Date: 07/31/2019 5:24:11 PM Ordering Provider:Renzo Adams On License Of [facility] ([place]) LIPon 07-31-2019 Lipase Level 88 U/L Normal 73-393 [facility] ([place]) Comment on above: Performed By: #### C BC, ADIFF, ANEU ####[facility] [place], [place] [address]#### CMP, LIP, GFR ####[facility] [place] [address] UAon 07-31-2019 Color (U) Yellow Normal [facility] ([place]) Comment on above: Performed By: #### U A UAMICAO ####[facility] [place] [address] Glucose (U) [Mass/Vol] Negative Normal Negative [facility] ([place]) Comment on above: Performed By: #### U A UAMICAO ####[place] [address] Ketones Ql (U) Negative Normal Negative [facility] ([place] Comment on above: Performed By: #### U A, UAMICAO ####[place] [address] UA Appear Clear Normal Clear [facility] ([place] Comment on above: Performed By: #### U A, UAMICAO ####[place] [address] UA Blood Negative Normal Negative [facility] ([place] Comment on above: Performed By: #### U A, UAMICAO ####[place] [address] UA Leuk Est Negative Normal Negative [facility] ([place] Comment on above: Performed By: #### U A, UAMICAO ####[place] [address] UA Nitrite Negative Normal Negative [facility] ([place] Comment on above: Performed By: #### U A, UAMICAO ####[place] [address] UA pH 8.5 5.0 - 8.0 [facility] ([place] Comment on above: Performed By: #### U A, UAMICAO ####[place] [address] UA Protein Negative Normal Negative [facility] ([place] Comment on above: Performed By: #### U A, UAMICAO ####[place] [address] UA Spec Grav 1.015 Normal 1.015-1.02 5 [facility] ([place] Comment on above: Performed By: #### U A, UAMICAO ####[place] [address] UA Specimen Type Clean Catch Normal [facility] ([place] Comment on above: Performed By: #### U A, UAMICAO ####[place] [address] UA Urobilinogen 0.2 E.U./dL Normal 0.2-1.0 [facility] ([place]) Comment on above: Performed By: #### U A UAMICAO ####[place] [address] Urobilinogen Qn (U) Negative Normal Negative [facility] ([place]) Comment on above: Performed By: #### U A UAMICAO ####[place] [address] .Auto Diffon 07-30-2019 Ammonia (P) [Mass/Vol] 0.40 10 3/mcL Normal 0.15-1.00 [facility] ([place]) Comment on above: Performed By: #### C BRE WATKINS, ANEU #### [place] [address] #### CMP, LIP, GFR #### [place] [address] Basophils (Bld) [#/Vol] 0.00 10 3/mcL Normal 0.00-0.19 [facility] ([place]) Comment on above: Performed By: #### C BCBRE, ANEU #### [place] [address] #### CMP, LIP, GFR #### [place] [address] Basophils/100 WBC (Bld) 0.5 % Normal 0.0-2.5 [facility] ([place] Comment on above: Performed By: #### TYRA MORENOIFF, ANEU #### [place] [address] #### CMP, LIP, GFR #### [place] [address] Eosinophils (Bld) [#/Vol] 0.10 10 3/mcL Normal 0.00-0.40 [facility] ([place] Comment on above: Performed By: #### C BCTYRAIFF, ANEU #### [place] [address] #### CMP, LIP, GFR #### [place] [address] Eosinophils/100 WBC (Bld) 1.5 % Normal 0.0-7.0 [facility] ([place]) Comment on above: Performed By: #### C BC, ADIFF, ANEU #### [address] [address] #### CMP, LIP, GFR #### [address] [address] Lymphocytes (Bld) [#/Vol] 2.20 10 3/mcL Normal 0.77-3.85 [facility] ([place]) Comment on above: Performed By: #### C BC, ADIFF, ANEU #### [address] [address] #### CMP, LIP, GFR #### [address] [address] Lymphocytes/100 WBC (Bld) 29.4 % Normal 10.0-50.0 [facility] ([place]) Comment on above: Performed By: #### C BC, ADIFF, ANEU #### [address] [address] #### CMP, LIP, GFR #### [address] [address] Monocytes/100 WBC (Bld) 5.4 % Normal 1.7-13.0 [facility] ([place]) Comment on above: Performed By: #### C BC, ADIFF, ANEU #### [address] [address] #### CMP, LIP, GFR #### [address] [address] Neutrophils/100 WBC (Bld) 63.2 % Normal 37.0-80.0 [facility] ([place]) Comment on above: Performed By: #### C BC, ADIFF, ANEU #### [address] [address] #### CMP, LIP, GFR #### [address] [address] .GFRon 07-30-2019 GFR 74 ml/min/1.73sqm Normal [facility] ([place]) Comment on above: Result Comment: GFR Population mean for , Non- Americans Ages 20-29 = 116 mL/min/1.73 sq.m. Ages 30-39 = 107 mL/min/1.73 sq.m. Ages 40-49 = 99 mL/min/1.73 sq.m. Ages 50-59 = 93 mL/min/1.73 sq.m. Ages 60-69 = 85 mL/min/1.73 sq.m. Ages 70+ = 75 mL/min/1.73 sq.m. Chronic Kidney Disease: Less than 60 mL/min/1.73 square meters End Stage Renal Disease: Less than 15 mL/min/1.73 square meters Performed By: #### C BCBRE, ANEU #### [facility] [address] [address] #### CMP, LIP, GFR #### [place] [address] GFR Non- 61 ml/min/1.73sqm Normal [facility] ([place]) Comment on above: Result Comment: GFR Population mean for , Non- Americans Ages 20-29 = 116 mL/min/1.73 sq.m. Ages 30-39 = 107 mL/min/1.73 sq.m. Ages 40-49 = 99 mL/min/1.73 sq.m. Ages 50-59 = 93 mL/min/1.73 sq.m. Ages 60-69 = 85 mL/min/1.73 sq.m. Ages 70+ = 75 mL/min/1.73 sq.m. Chronic Kidney Disease: Less than 60 mL/min/1.73 square meters End Stage Renal Disease: Less than 15 mL/min/1.73 square meters Performed By: #### C BCBRE, ANEU #### [address] [address] #### CMP, LIP, GFR #### [address] [address] .NEUABSon 07-30-2019 Neutrophils (Bld) [#/Vol] 4.70 10 3/mcL Normal 2.85-6.16 [facility] ([place]) Comment on above: Performed By: #### C BC, ADIFF, ANEU #### [place] [address] #### CMP, LIP, GFR #### [facility] [address] [place] [address] .Urinalysis Microscopic (AO) on 07-30-2019 RBC (U) [#/Vol] 0-5 None Seen [facility] ([place]) Comment on above: Performed By: #### P REGU ####[place] [address]#### UA, UAMICAO ####[facility] [place] [address] UA Bacteria Trace [facility] ([place]) Comment on above: Performed By: #### P REGU ####[place] [address]#### UA, UAMICAO ####[facility] [place] [address] UA Squam Epithelial 0-5 None Seen [facility] ([place]) Comment on above: Performed By: #### P REGU ####[place] [address]#### UA, UAMICAO ####[facility] [place] [address] UA WBC 0-5 None Seen [facility] ([place] Comment on above: Performed By: #### P REGU ####[place] [address]#### UA, UAMICAO ####[facility] [place] [address] CBCon 07-30-2019 Erythrocyte distribution width (RBC) [Ratio] 14.0 % Normal 11.5-14.5 [facility] ([place]) Comment on above: Performed By: #### C BC, ADIFF, ANEU #### [place] [address] #### CMP, LIP, GFR #### [place] [address] Hematocrit (Bld) [Volume fraction] 37.6 % Normal 37.0-47.0 [facility] ([place] Comment on above: Performed By: #### C ROLAND ADIFF, ANEU #### [address] [address] #### CMP, LIP, GFR #### [place] [address] Hemoglobin (Bld) [Mass/Vol] 12.5 G/dL Normal 12.0-16.0 [facility] ([place]) Comment on above: Performed By: #### C BRE WATKINS, ANEU #### [place] [address] #### CMP, LIP, GFR #### [place] [address] MCH (RBC) [Entitic mass] 29.6 pg Normal 27.0-31.2 [facility] ([place]) Comment on above: Performed By: #### C TYRA WATKINSIFF, ANEU #### [place] [address] #### CMP, LIP, GFR #### [place] [address] MCHC (RBC) [Mass/Vol] 33.2 G/dL Normal 33.0-37.0 [facility] ([place]) Comment on above: Performed By: #### C BRE WATKINS, ANEU #### [place] [address] #### CMP, LIP, GFR #### [place] [address] MCV (RBC) [Entitic vol] 89.2 fL Normal 80.0-94.0 [facility] ([place] Comment on above: Performed By: #### C ROLAND ADIFF, ANEU #### [place] [address] #### CMP, LIP, GFR #### [facility] [address] [place], [place] [address] Platelet mean volume (Bld) [Entitic vol] 7.7 fL Normal 7.4-10.4 [facility] ([place]) Comment on above: Performed By: #### C BCTYRAIFF, ANEU #### [address] [address] #### CMP, LIP, GFR #### [place] [address] Platelets (Bld) [#/Vol] 171 10 3/mcL Normal 130-400 [facility] ([place] Comment on above: Performed By: #### C BC, ADIFF, ANEU #### [place] [address] #### CMP, LIP, GFR #### [place] [address] RBC (Bld) [#/Vol] 4.21 10 6/mcL Normal 4.20-5.40 [facility] ([place]) Comment on above: Performed By: #### C TYRA WATKINSIFF, ANEU #### [place] [address] #### CMP, LIP, GFR #### [place] [address] WBC (Bld) [#/Vol] 7.50 10 3/mcL Normal 4.60-10.80 [facility] ([place]) Comment on above: Performed By: #### BRE MORENO, ANEU #### [place] [address] #### CMP, LIP, GFR #### [place] [address] CMPon 07-30-2019 Albumin [Mass/Vol] 3.2 G/dL Low 3.5-5.0 [facility] ([place]) Comment on above: Performed By: #### Isi BC, ADIFF, ANEU #### [place] [address] #### CMP, LIP, GFR #### [facility] [address] [place], [place] [address] Albumin/Globulin [Mass ratio] 1.2 {ratio} Normal 1.1-2.5 [facility] ([place]) Comment on above: Performed By: #### C BC, ADIFF, ANEU #### [address] [address] #### CMP, LIP, GFR #### [address] [address] ALP [Catalytic activity/Vol] 75 U/L Normal 40-135 [facility] ([place]) Comment on above: Performed By: #### C BC, ADIFF, ANEU #### [address] [address] #### CMP, LIP, GFR #### [address] [address] ALT [Catalytic activity/Vol] 19 U/L Normal 10-35 [facility] ([place] Comment on above: Performed By: #### C BC, ADIFF, ANEU #### [place] [address] #### CMP, LIP, GFR #### [address] [address] AST [Catalytic activity/Vol] 12 U/L Normal 10-40 [facility] ([place] Comment on above: Performed By: #### C BC, ADIFF, ANEU #### [place] [address] #### CMP, LIP, GFR #### [address] [address] Bili Total 0.2 mg/dL Normal 0.2-1.0 [facility] ([place] Comment on above: Performed By: #### C BC, ADIFF, ANEU #### [place] [address] #### CMP, LIP, GFR #### [address] [address] Calcium [Mass/Vol] 8.5 mg/dL Normal 8.4-10.2 [facility] ([place]) Comment on above: Performed By: #### C BC, ADIFF, ANEU #### [address] [address] #### CMP, LIP, GFR #### [address] [address] Chloride [Moles/Vol] 111 mmol/L High 98-107 [facility] ([place]) Comment on above: Performed By: #### C BC, ADIFF, ANEU #### [address] [address] #### CMP, LIP, GFR #### [address] [address] CO2 [Moles/Vol] 20 mmol/L Low 22-29 [facility] ([place] Comment on above: Performed By: #### C BC, ADIFF, ANEU #### [address] [address] #### CMP, LIP, GFR #### [address] [address] Creatinine [Mass/Vol] 0.99 mg/dL Normal 0.55-1.02 [facility] ([place]) Comment on above: Performed By: #### C BC, ADIFF, ANEU #### [address] [address] #### CMP, LIP, GFR #### [address] [address] Electrolyte Balance 13.0 mEq/L Normal [facility] ([place]) Comment on above: Performed By: #### C BC, ADIFF, ANEU #### [address] [address] #### CMP, LIP, GFR #### [address] [address] Globulin (S) [Mass/Vol] 2.7 G/dL Normal [facility] ([place]) Comment on above: Performed By: #### C BC, ADIFF, ANEU #### [address] [address] #### CMP, LIP, GFR #### [address] [address] Glucose [Mass/Vol] 81 mg/dL Normal 70-105 [facility] ([place]) Comment on above: Performed By: #### C BC, ADIFF, ANEU #### [address] [address] #### CMP, LIP, GFR #### [address] [address] Potassium [Moles/Vol] 3.1 mmol/L Low 3.5-5.1 [facility] ([place] Comment on above: Performed By: #### C BC, ADIFF, ANEU #### [address] [address] #### CMP, LIP, GFR #### [address] [address] Protein [Mass/Vol] 5.9 G/dL Low 6.4-8.2 [facility] ([place]) Comment on above: Performed By: #### C TYRA WATKINSIFF, ANEU #### [address] [address] #### CMP, LIP, GFR #### [address] [address] Sodium [Moles/Vol] 144 mmol/L Normal 136-145 [facility] ([place]) Comment on above: Performed By: #### C ROLAND, ADIFF, ANEU #### [address] [address] #### CMP, LIP, GFR #### [address] [address] Urea nitrogen [Mass/Vol] 12 mg/dL Normal 7-18 [facility] ([place]) Comment on above: Performed By: #### C BC, ADIFF, ANEU #### [address] [address] #### CMP, LIP, GFR #### [address] [address] Urea nitrogen/Creatinine [Mass ratio] 12 ratio Normal 7-27 [facility] ([place] Comment on above: Performed By: #### C BC, ADIFF, ANEU #### [place] [address] #### CMP, LIP, GFR #### [address] [address] LIPon 07-30-2019 Lipase Level 97 U/L Normal 73-393 [facility] ([place]) Comment on above: Performed By: #### C BC, ADIFF, ANEU #### [place] [address] #### CMP, LIP, GFR #### [place] [address] PREGUon 07-30-2019 HCG ( test) Ql (U) Negative Normal [facility] ([place]) Comment on above: Performed By: #### P REGU #### [place] [address] #### UA, UAMICAO #### [place] [address] test (u) int HCG not detected. [facility] ([place]) Comment on above: Performed By: #### P REGU #### [place] [address] #### UA, UAMICAO #### [place] [address] UAon 07-30-2019 Color (U) Yellow Normal [facility] ([place]) Comment on above: Performed By: #### P REGU #### [place] [address] #### UA, UAMICAO #### [place] [address] Glucose (U) [Mass/Vol] Negative Normal Negative [facility] ([place]) Comment on above: Performed By: #### P REGU #### [place] [address] #### UA, UAMICAO #### [place] [address] Ketones Ql (U) Negative Normal Negative [facility] ([place]) Comment on above: Performed By: #### P REGU #### [address] [address] #### UA, UAMICAO #### [facility] [address] [place] [address] UA Appear Clear Normal Clear [facility] ([place] Comment on above: Performed By: #### P REGU #### [place] [address] #### UA, UAMICAO #### [facility] [address] [place] [address] UA Blood Moderate Negative [facility] ([place] Comment on above: Performed By: #### P REGU #### [place] [address] #### UA, UAMICAO #### [address] [address] UA Leuk Est Moderate Negative [facility] ([place] Comment on above: Performed By: #### P REGU #### [address] [address] #### UA, UAMICAO #### [facility] [address] [place] [address] UA Nitrite Negative Normal Negative [facility] ([place] Comment on above: Performed By: #### P REGU #### [address] [address] #### UA, UAMICAO #### [address] [address] UA pH 5.5 Normal 5.0 - 8.0 [facility] ([place]) Comment on above: Performed By: #### P REGU #### [address] [address] #### UA, UAMICAO #### [facility] [address] [place] [address] UA Protein Negative Normal Negative [facility] ([place] Comment on above: Performed By: #### P REGU #### [place] [id number] #### UA, UAMICAO #### [place] [address] UA Spec Grav 1.025 Normal 1.015-1.02 5 [facility] ([place]) Comment on above: Performed By: #### P REGU #### [place] [address] #### UA, UAMICAO #### [place] [address] UA Specimen Type Clean Catch Normal [facility] ([place]) Comment on above: Result Comment: Resu lts less than 5ml may not yield chemical or microscopic results truly reflective of renal function or general metabolism Performed By: #### P REGU #### [place] [address] #### UA, UAMICAO #### [place] [address] UA Urobilinogen 0.2 E.U./dL Normal 0.2-1.0 [facility] ([place]) Comment on above: Performed By: #### P REGU #### [place] [address] #### UA, UAMICAO #### [place] [address] Urobilinogen Qn (U) Negative Normal Negative [facility] ([place]) Comment on above: Performed By: #### P REGU #### [place] [address] #### UA, UAMICAO #### [place] [address] US PELVIS NON-OB W/TRANSVAGI NALon 07-30-2019 US PELVIS NON-OB W/TRANSVAGINAL ORIGINAL US PELVIS NON-OB TRANSABDOMINAL AND TRANSVAGINAL CLINICAL STATEMENT: pelvic pain. COMPARISON: None FINDINGS: The uterus measures 9.1 x 4.4 x 5.4 cm and has normal echotexture. No myometrial mass is seen. The endometrial double wall thickness is 11 mm. The right ovary measures 2.9 x 2.3 x 2.9 cm. A 2.3 cm simple RIGHT ovarian cyst is identified. In a menstruating female, no follow-up is needed. The left ovary measures 2.7 x 1.4 x 2.0 cm. There is positive color doppler and spectral waveforms flow to both ovaries. A small amount of free fluid is seen within the cul-de-sac, likely physiologic. IMPRESSION: Normal uterus and ovaries. Small amount of free fluid within the pelvis, likely physiologic. Interpreted By: Janel Warner MD Preliminary Report By: Janel Warner MD Electronically Signed By: Janel Warner MD Dictated Date: 07/30/2019 1:02:31 PM Prelim Date: 07/30/2019 1:02:31 PM Sign Date: 07/30/2019 1:05:22 PM Ordering Provider:Bello Mosher On License Of [facility] ([place]) IR PROCEDURE FOLLOW UPon IR PROCEDURE FOLLOW UP ORIGINAL PATIENT FOLLOWUP STATUS POST PORT INSERTION Date: 01/04/2019 Patient had a chest port placed on 12/23/2018. Patient presents today for followup and wound check. The patient's port site and neck insertion site show no signs of redness, swelling, or drainage. The incision appears to be healing well. Vitals signs were reviewed. Impression: Expected post operative findings. Port evaluation was performed by Yesica Box PA-C. I concur with the contents of this report. Interpreted By: Lorenzo Mackey MD Preliminary Report By: Yesica Box PA-C Electronically Signed By: Lorenzo Mackey MD Dictated Date: 01/05/2019 3:52:25 PM Prelim Date: 01/05/2019 3:52:48 PM Sign Date: 01/05/2019 6:22:37 PM On License Of [facility] ([place]) IR TUNNELED CATHETER INSERTI ON/PORTon 12-23-2018 IR TUNNELED CATHETER INSERTION/PORT ORIGINAL PROCEDURE: 1. Right chest port placement with fluoroscopic and ultrasound guidance WELD INSPECTOR: Dr. Jon PHOTOGRAPHY INTERN: Dr. Banda CLINICAL HISTORY: MONTHLY IV INFUSIONS for migraine medication COMPARISON: None MATERIALS UTILIZED: [employer] D[employer]ity 6.[address] Port (Lot# [id number]) Micropuncture Probe cover Glue 2-0 Vicryl 4-0 Vicryl ANESTHESIA: Moderate sedation with Versed and fentanyl under my supervision and with cardiorespiratory monitoring performed by independent nursing personnel. SEDATION TIME: 100 min FLUORO: 0.8 minutes min AIR KERMA DOSE: 5 mGy ACCESS SITE: RIGHT internal jugular vein PROCEDURE: The procedure, risks, and alternatives, were discussed and all questions were answered. Written informed consent obtained. Accompanying paperwork was verified for accuracy. Directed history and physical exam performed prior to the procedure. Medication reconciliation performed by nursing personnel. Procedure was performed using a cap, sterile gown, sterile gloves, a large sterile sheet, hand hygiene and hospital approved cutaneous antisepsis. Sterile ultrasound technique was used (sterile probe cover and sterile gel). The patient was positioned supine and prepped and draped in usual sterile fashion. A critical pause was performed with assisting personnel just prior to the procedure with the patient's identity confirmed using 2 identifiers, confirming site and side. Ultrasound was used to demonstrate a patent vein and an image was obtained. After administering local anesthesia, a small skin incision was made in the neck with careful blunt dissection into the subcutaneous tissues. The vein was punctured under real-time sonographic guidance. A wire was placed. Attention was turned to the anterior chest wall. The port pocket and subcutaneous tunnel was anesthetized with 2% lidocaine with epinephrine. A 3 cm incision was made at the upper margin of the port pocket. The port pocket was made with blunt dissection. The catheter was tunneled from the pocket to the neck incision site. A sheath was placed over the wire. The catheter was advanced with the tip near the cavoatrial junction under direct fluoroscopic guidance. The sheath was removed. The catheter was trimmed to length and attached to the port. The port was anchored with absorbable suture. The port was flushed with 1000 units heparin per protocol. The pocket and neck incisions were closed with suture and glue. COMPLICATIONS: None EBL: Minimal PATIENT CONDITION: Stable, unchanged. IMPRESSION: 1. Successful uncomplicated chest port placement. Interpreted By: Coreen Jon MD Preliminary Report By: Coreen Jon MD Electronically Signed By: Coreen Jon MD Dictated Date: 12/23/2018 2:06:25 PM Prelim Date: 12/23/2018 2:06:25 PM Sign Date: 12/23/2018 2:08:31 PM Normal [facility] ([place]) Vital Signs Date Time Vital Sign Value Performing Clinician Facility 04-13-2025 10:24-0400 Diastolic blood pressure 60 mm[Hg] Tanya Blanco MD Work Phone: [facility] 04-13-2025 10:24-0400 Heart rate 59 /min Tanya Blanco MD Work Phone: [facility] 04-13-2025 10:24-0400 Respiratory rate 17 /min Tanya Blanco MD Work Phone: [facility] 04-13-2025 10:24-0400 Systolic blood pressure 102 mm[Hg] Tanya Blanco MD Work Phone: [facility] 04-12-2025 10:38-0400 Diastolic blood pressure 60 mm[Hg] Tanya Blanco MD Work Phone: [facility] 04-12-2025 10:38-0400 Heart rate 55 /min Tanya Blanco MD Work Phone: [facility] 04-12-2025 10:38-0400 Respiratory rate 17 /min Tanya Blanco MD Work Phone: [facility] 04-12-2025 10:38-0400 Systolic blood pressure 101 mm[Hg] Tanya Blanco MD Work Phone: [facility] 04-11-2025 10:33-0400 Diastolic blood pressure 70 mm[Hg] Tanya Blanco MD Work Phone: [facility] 04-11-2025 10:33-0400 Heart rate 58 /min Tayna Blanco MD Work Phone: [facility] 04-11-2025 10:33-0400 Respiratory rate 17 /min Tanya Blanco MD Work Phone: [facility] 04-11-2025 10:33-0400 Systolic blood pressure 106 mm[Hg] Tanya Blanco MD Work Phone: [facility] 04-06-2025 10:17-0400 Body mass index (BMI) [Ratio] 22.94 kg/m2 Chair 1-3 [facility] 06-18-2025 10:17-0400 Body temperature 97.39 [degF] Chair 1-3 [facility] 04-06-2025 10:17-0400 Body weight 56.88 kg Chair 1-3 [facility] 04-06-2025 10:17-0400 Diastolic blood pressure 74 mm[Hg] Chair 1-3 [facility] 04-06-2025 10:17-0400 Heart rate 50 /min Chair 1-3 [facility] 04-06-2025 10:17-0400 Respiratory rate 16 /min Chair 1-3 [facility] 04-06-2025 10:17-0400 Systolic blood pressure 130 mm[Hg] Chair 1-3 [facility] 04-06-2025 09:26-0400 Body height 157.5 cm Iron Krishnan DOG BREEDER - PROFESSOR OF VOICE Work Phone: [facility] 04-06-2025 09:26-0400 Body mass index (BMI) [Ratio] 22.61 kg/m2 Iron Krishnan DOG BREEDER - PROFESSOR OF VOICE Work Phone: [facility] 04-06-2025 09:26-0400 Body weight 56.06 kg Iron Krishnan DOG BREEDER - PROFESSOR OF VOICE Work Phone: [facility] 04-06-2025 09:26-0400 Diastolic blood pressure 79 mm[Hg] Iron Krishnan DOG BREEDER - PROFESSOR OF VOICE Work Phone: [facility] 04-06-2025 09:26-0400 Heart rate 61 /min Iron Krishnan DOG BREEDER - PROFESSOR OF VOICE Work Phone: [facility] 04-06-2025 09:26-0400 Systolic blood pressure 129 mm[Hg] Iron Krishnan DOG BREEDER - PROFESSOR OF VOICE Work Phone: [facility] 03-08-2025 10:10-0400 Diastolic blood pressure 59 mm[Hg] Tanya Blanco MD Work Phone: [facility] 03-08-2025 10:10-0400 Heart rate 58 /min Tanya Blanco MD Work Phone: [facility] 03-08-2025 10:10-0400 Respiratory rate 17 /min Tanya Blanco MD Work Phone: [facility] 03-08-2025 10:10-0400 Systolic blood pressure 100 mm[Hg] Tanya Blanco MD Work Phone: [facility] 02-18-2025 07:50-0400 Body height 157.5 cm Lorenzo Lr MD Work Phone: [facility] 02-18-2025 07:50-0400 Body mass index (BMI) [Ratio] 22.57 kg/m2 Lorenzo Lr MD Work Phone: [facility] 02-18-2025 07:50-0400 Body weight 55.97 kg Lorenzo Lr MD Work Phone: [facility] 02-18-2025 07:50-0400 Diastolic blood pressure 86 mm[Hg] Lorenzo Lr MD Work Phone: [facility] 02-18-2025 07:50-0400 Heart rate 58 /min Lorenzo Lr MD Work Phone: [facility] 02-18-2025 07:50-0400 Systolic blood pressure 126 mm[Hg] Lorenzo Lr MD Work Phone: [facility] 02-03-2025 10:14-0400 Diastolic blood pressure 52 mm[Hg] Tanya Blanco MD Work Phone: [facility] 02-03-2025 10:14-0400 Heart rate 61 /min Tanya Blanco MD Work Phone: [facility] 02-03-2025 10:14-0400 Respiratory rate 14 /min Tanya Blanco MD Work Phone: [facility] 02-03-2025 10:14-0400 Systolic blood pressure 101 mm[Hg] Tanya Blanco MD Work Phone: [facility] 02-02-2025 10:11-0400 Diastolic blood pressure 65 mm[Hg] Tanya Blanco MD Work Phone: [facility] 02-02-2025 10:11-0400 Heart rate 60 /min Tanya Blanco MD Work Phone: [facility] 02-02-2025 10:11-0400 Respiratory rate 20 /min Tanya Blanco MD Work Phone: [facility] 02-02-2025 10:11-0400 Systolic blood pressure 102 mm[Hg] Tanya Blanco MD Work Phone: [facility] 02-01-2025 10:00-0400 Diastolic blood pressure 63 mm[Hg] Tanya Blanco MD Work Phone: [facility] 02-01-2025 10:00-0400 Heart rate 59 /min Tanya Blanco MD Work Phone: [facility] 02-01-2025 10:00-0400 Respiratory rate 13 /min Tanya Blanco MD Work Phone: [facility] 02-01-2025 10:00-0400 Systolic blood pressure 108 mm[Hg] Tanya Blanco MD Work Phone: [facility] 01-12-2025 10:38-0400 Body height 157.5 cm Chair 1-3 [facility] 01-12-2025 10:38-0400 Body mass index (BMI) [Ratio] 21.22 kg/m2 Chair 1-3 [facility] 01-12-2025 10:38-0400 Body temperature 97.11 [degF] Chair 1-3 [facility] 01-12-2025 10:38-0400 Body weight 52.62 kg Chair 1-3 [facility] 01-12-2025 10:38-0400 Diastolic blood pressure 83 mm[Hg] Chair 1-3 [facility] 01-12-2025 10:38-0400 Heart rate 64 /min Chair 1-3 [facility] 01-12-2025 10:38-0400 Respiratory rate 16 /min Chair 1-3 [facility] 01-12-2025 10:38-0400 SaO2% (BldA) [Mass fraction] 99 % Chair 1-3 [facility] 03-26-2025 10:38-0400 Systolic blood pressure 116 mm[Hg] Chair 1-3 [facility] 01-04-2025 09:52-0400 Body height 157.5 cm Iron Krishnan DOG BREEDER - PROFESSOR OF VOICE Work Phone: [facility] 01-04-2025 09:52-0400 Body mass index (BMI) [Ratio] 21.51 kg/m2 Iron Krishnan DOG BREEDER - PROFESSOR OF VOICE Work Phone: [facility] 01-04-2025 09:52-0400 Body weight 53.34 kg Iron Krishnan DOG BREEDER - PROFESSOR OF VOICE Work Phone: [facility] 01-04-2025 09:52-0400 Diastolic blood pressure 87 mm[Hg] Iron Krishnan DOG BREEDER - PROFESSOR OF VOICE Work Phone: [facility] 01-04-2025 09:52-0400 Heart rate 67 /min Iron Krishnan DOG BREEDER - PROFESSOR OF VOICE Work Phone: [facility] 01-04-2025 09:52-0400 Systolic blood pressure 137 mm[Hg] Iron Krishnan DOG BREEDER - PROFESSOR OF VOICE Work Phone: [facility] 12-30-2024 10:03-0400 Diastolic blood pressure 59 mm[Hg] Tanya Blanco MD Work Phone: [facility] 12-30-2024 10:03-0400 Heart rate 61 /min Tanya Blanco MD Work Phone: [facility] 12-30-2024 10:03-0400 Respiratory rate 17 /min Tanya Blanco MD Work Phone: [facility] 12-30-2024 10:03-0400 Systolic blood pressure 102 mm[Hg] Tanya Blanco MD Work Phone: [facility] 12-29-2024 10:28-0400 Diastolic blood pressure 55 mm[Hg] Tanya Blanco MD Work Phone: [facility] 12-29-2024 10:28-0400 Heart rate 59 /min Tanya Blanco MD Work Phone: [facility] 12-29-2024 10:28-0400 Respiratory rate 16 /min Tanya Blanco MD Work Phone: [facility] 12-29-2024 10:28-0400 Systolic blood pressure 108 mm[Hg] Tanya Blanco MD Work Phone: [facility] 12-28-2024 10:08-0400 Diastolic blood pressure 60 mm[Hg] Tanya Blanco MD Work Phone: [facility] 12-28-2024 10:08-0400 Heart rate 55 /min Tanya Blanco MD Work Phone: [facility] 12-28-2024 10:08-0400 Respiratory rate 16 /min Tanya Blanco MD Work Phone: [facility] 12-28-2024 10:08-0400 Systolic blood pressure 100 mm[Hg] Tanya Blanco MD Work Phone: [facility] 12-01-2024 10:32-0500 Diastolic blood pressure 58 mm[Hg] Tanya Blanco MD Work Phone: [facility] 12-01-2024 10:32-0500 Heart rate 57 /min Tanya Blanco MD Work Phone: [facility] 12-01-2024 10:32-0500 Respiratory rate 18 /min Tanya Blanco MD Work Phone: [facility] 12-01-2024 10:32-0500 Systolic blood pressure 111 mm[Hg] Tanya Blanco MD Work Phone: [facility] 11-30-2024 07:23-0500 Diastolic blood pressure 60 mm[Hg] Tanya Blanco MD Work Phone: [facility] 11-30-2024 07:23-0500 Heart rate 72 /min Tanya Blanco MD Work Phone: [facility] 11-30-2024 07:23-0500 Respiratory rate 19 /min Tanya Blanco MD Work Phone: [facility] 11-30-2024 07:23-0500 Systolic blood pressure 114 mm[Hg] Tanya Blanco MD Work Phone: [facility] 11-29-2024 10:30-0500 Diastolic blood pressure 59 mm[Hg] Tanya Blanco MD Work Phone: [facility] 11-29-2024 10:30-0500 Heart rate 60 /min Tanya Blanco MD Work Phone: [facility] 11-29-2024 10:30-0500 Respiratory rate 20 /min Tanya Blanco MD Work Phone: [facility] 11-29-2024 10:30-0500 Systolic blood pressure 112 mm[Hg] Tanya Blanco MD Work Phone: [facility] 11-19-2024 07:46-0500 Body height 157.5 cm Lorenzo Lr MD Work Phone: [facility] 11-19-2024 07:46-0500 Body mass index (BMI) [Ratio] 22.06 kg/m2 Lorenzo Lr MD Work Phone: [facility] 11-19-2024 07:46-0500 Body weight 54.7 kg Lorenzo Lr MD Work Phone: [facility] 11-19-2024 07:46-0500 Diastolic blood pressure 76 mm[Hg] Lorenzo Lr MD Work Phone: [facility] 11-19-2024 07:46-0500 Heart rate 63 /min Lorenzo Lr MD Work Phone: [facility] 11-19-2024 07:46-0500 Systolic blood pressure 113 mm[Hg] Lorenzo Lr MD Work Phone: [facility] 11-03-2024 10:29-0500 Diastolic blood pressure 60 mm[Hg] Tanya Blanco MD Work Phone: [facility] 11-03-2024 10:29-0500 Heart rate 71 /min Tanya Blanco MD Work Phone: [facility] 11-03-2024 10:29-0500 Respiratory rate 15 /min Tanya Blanco MD Work Phone: [facility] 11-03-2024 10:29-0500 Systolic blood pressure 109 mm[Hg] Tanya Blanco MD Work Phone: [facility] 11-02-2024 10:39-0500 Diastolic blood pressure 60 mm[Hg] Tanya Blanco MD Work Phone: [facility] 11-02-2024 10:39-0500 Heart rate 61 /min Tanya Blanco MD Work Phone: [facility] 11-02-2024 10:39-0500 Respiratory rate 16 /min Tanya Blanco MD Work Phone: [facility] 11-02-2024 10:39-0500 Systolic blood pressure 117 mm[Hg] Tanya Blanco MD Work Phone: [facility] 11-01-2024 10:31-0500 Diastolic blood pressure 54 mm[Hg] Tanya Blacno MD Work Phone: [facility] 11-01-2024 10:31-0500 Heart rate 67 /min Tanya Blanco MD Work Phone: [facility] 11-01-2024 10:31-0500 Respiratory rate 15 /min Tanya Blanco MD Work Phone: [facility] 11-01-2024 10:31-0500 Systolic blood pressure 114 mm[Hg] Tanya Blanco MD Work Phone: [facility] 10-04-2024 11:10-0500 Diastolic blood pressure 68 mm[Hg] Chair 2-3 [facility] 10-04-2024 11:10-0500 Heart rate 56 /min Chair 2-3 [facility] 10-04-2024 11:10-0500 Systolic blood pressure 121 mm[Hg] Chair 2-3 [facility] 10-04-2024 10:18-0500 Body mass index (BMI) [Ratio] 21.89 kg/m2 Chair 2-3 [facility] 10-04-2024 10:18-0500 Body temperature 97.9 [degF] Chair 2-3 [facility] 10-04-2024 10:18-0500 Body weight 54.3 kg Chair 2-3 [facility] 10-04-2024 10:18-0500 Respiratory rate 18 /min Chair 2-3 [facility] 10-04-2024 09:08-0500 Body height 157.5 cm Iron Martinlellan DOG BREEDER - PROFESSOR OF VOICE Work Phone: [facility] 10-04-2024 09:08-0500 Body mass index (BMI) [Ratio] 21.91 kg/m2 Iron Krishnan DOG BREEDER - PROFESSOR OF VOICE Work Phone: [facility] 10-04-2024 09:08-0500 Body weight 54.34 kg Iron Martinlellan DOG BREEDER - PROFESSOR OF VOICE Work Phone: [facility] 10-04-2024 09:08-0500 Diastolic blood pressure 78 mm[Hg] Iron Martinlellan DOG BREEDER - PROFESSOR OF VOICE Work Phone: [facility] 10-04-2024 09:08-0500 Heart rate 65 /min Iron Martinlellan DOG BREEDER - PROFESSOR OF VOICE Work Phone: [facility] 10-04-2024 09:08-0500 Systolic blood pressure 114 mm[Hg] Iron Ariella DOG BREEDER - PROFESSOR OF VOICE Work Phone: [facility] 09-29-2024 10:23-0500 Diastolic blood pressure 61 mm[Hg] Tanya Blanco MD Work Phone: [facility] 09-29-2024 10:23-0500 Heart rate 58 /min Tanya Blanco MD Work Phone: [facility] 09-29-2024 10:23-0500 Respiratory rate 16 /min Tanya Blanco MD Work Phone: [facility] 09-29-2024 10:23-0500 Systolic blood pressure 122 mm[Hg] Tanya Blanco MD Work Phone: [facility] 09-28-2024 10:38-0500 Diastolic blood pressure 77 mm[Hg] Tanya Blanco MD Work Phone: [facility] 09-28-2024 10:38-0500 Heart rate 51 /min Tanya Blanco MD Work Phone: [facility] 09-28-2024 10:38-0500 Respiratory rate 18 /min Tanya Blanco MD Work Phone: [facility] 09-28-2024 10:38-0500 Systolic blood pressure 108 mm[Hg] Tanya Blanco MD Work Phone: [facility] 09-27-2024 10:34-0500 Diastolic blood pressure 77 mm[Hg] Tanya Blanco MD Work Phone: [facility] 09-27-2024 10:34-0500 Heart rate 55 /min Tanya Blanco MD Work Phone: [facility] 09-27-2024 10:34-0500 Respiratory rate 15 /min Tanya Blanco MD Work Phone: [facility] 09-27-2024 10:34-0500 Systolic blood pressure 108 mm[Hg] Tanya Blanco MD Work Phone: [facility] 08-26-2024 10:25-0500 Diastolic blood pressure 55 mm[Hg] Tanya Blanco MD Work Phone: [facility] 08-26-2024 10:25-0500 Heart rate 59 /min Tanya Blanco MD Work Phone: [facility] 08-26-2024 10:25-0500 Respiratory rate 14 /min Tanya Blanco MD Work Phone: [facility] 08-26-2024 10:25-0500 Systolic blood pressure 98 mm[Hg] Tanya Blanco MD Work Phone: [facility] 08-25-2024 10:20-0500 Diastolic blood pressure 77 mm[Hg] Tanya Blanco MD Work Phone: [facility] 08-25-2024 10:20-0500 Heart rate 57 /min Tanya Blanco MD Work Phone: [facility] 08-25-2024 10:20-0500 Respiratory rate 16 /min Tanya Blanco MD Work Phone: [facility] 08-25-2024 10:20-0500 Systolic blood pressure 118 mm[Hg] Tanya Blanco MD Work Phone: [facility] 08-24-2024 09:24-0500 Diastolic blood pressure 54 mm[Hg] Tanya Blanco MD Work Phone: [facility] 08-24-2024 09:24-0500 Heart rate 59 /min Tanya Blanco MD Work Phone: [facility] 08-24-2024 09:24-0500 Respiratory rate 17 /min Tanya Blanco MD Work Phone: [facility] 08-24-2024 09:24-0500 Systolic blood pressure 101 mm[Hg] Tanya Blanco MD Work Phone: [facility] 07-28-2024 10:43-0400 Diastolic blood pressure 76 mm[Hg] Tanya Blanco MD Work Phone: [facility] 07-28-2024 10:43-0400 Heart rate 68 /min Tanya Blanco MD Work Phone: [facility] 07-28-2024 10:43-0400 Respiratory rate 12 /min Tanya Blanco MD Work Phone: [facility] 07-28-2024 10:43-0400 Systolic blood pressure 108 mm[Hg] Tanya Blanco MD Work Phone: [facility] 07-27-2024 10:33-0400 Diastolic blood pressure 61 mm[Hg] Tanya Blanco MD Work Phone: [facility] 07-27-2024 10:33-0400 Heart rate 61 /min Tanya Blanco MD Work Phone: [facility] 07-27-2024 10:33-0400 Respiratory rate 18 /min Tanya Blanco MD Work Phone: [facility] 07-27-2024 10:33-0400 Systolic blood pressure 100 mm[Hg] Tanya Blanco MD Work Phone: [facility] 07-26-2024 10:51-0400 Diastolic blood pressure 52 mm[Hg] Tanya Blanco MD Work Phone: [facility] 07-26-2024 10:51-0400 Heart rate 59 /min Tanya Blanco MD Work Phone: [facility] 07-26-2024 10:51-0400 Respiratory rate 13 /min Tanya Blanco MD Work Phone: [facility] 07-26-2024 10:51-0400 Systolic blood pressure 100 mm[Hg] Tanya Blanco MD Work Phone: [facility] 07-12-2024 13:12-0400 Body height 157.5 cm Iron Krishnan DOG BREEDER - PROFESSOR OF VOICE Work Phone: [facility] 07-12-2024 13:12-0400 Body mass index (BMI) [Ratio] 21.84 kg/m2 Iron Krishnan DOG BREEDER - PROFESSOR OF VOICE Work Phone: [facility] 07-12-2024 13:12-0400 Body weight 54.16 kg Iron Krishnan DOG BREEDER - PROFESSOR OF VOICE Work Phone: [facility] 07-12-2024 13:12-0400 Diastolic blood pressure 84 mm[Hg] Iron Krishnan DOG BREEDER - PROFESSOR OF VOICE Work Phone: [facility] 07-12-2024 13:12-0400 Heart rate 69 /min Iron Krishnan DOG BREEDER - PROFESSOR OF VOICE Work Phone: [facility] 07-12-2024 13:12-0400 Systolic blood pressure 123 mm[Hg] Iron Krishnan DOG BREEDER - PROFESSOR OF VOICE Work Phone: [facility] 07-12-2024 11:36-0400 Body height 157.5 cm Chair -4 [facility] 07-12-2024 11:36-0400 Body mass index (BMI) [Ratio] 21.45 kg/m2 Chair 10-23 [facility] 07-12-2024 11:36-0400 Body weight 53.21 kg Chair -4 [facility] 06-24-2024 10:13-0400 Diastolic blood pressure 63 mm[Hg] Tanya Blanco MD Work Phone: [facility] 06-24-2024 10:13-0400 Heart rate 59 /min Tanya Blanco MD Work Phone: [facility] 06-24-2024 10:13-0400 Respiratory rate 15 /min Tanya Blanco MD Work Phone: [facility] 06-24-2024 10:13-0400 Systolic blood pressure 109 mm[Hg] Tanya Blanco MD Work Phone: [facility] 06-23-2024 10:37-0400 Diastolic blood pressure 60 mm[Hg] Tanya Blanco MD Work Phone: [facility] 06-23-2024 10:37-0400 Heart rate 61 /min Tanya Blanco MD Work Phone: [facility] 06-23-2024 10:37-0400 Respiratory rate 13 /min Tanya Blanco MD Work Phone: [facility] 06-23-2024 10:37-0400 Systolic blood pressure 109 mm[Hg] Tanya Blanco MD Work Phone: [facility] 06-22-2024 10:14-0400 Diastolic blood pressure 56 mm[Hg] Tanya Blanco MD Work Phone: [facility] 06-22-2024 10:14-0400 Heart rate 58 /min Tanya Blanco MD Work Phone: [facility] 06-22-2024 10:14-0400 Respiratory rate 17 /min Tanya Blanco MD Work Phone: [facility] 06-22-2024 10:14-0400 Systolic blood pressure 109 mm[Hg] Tanya Blanco MD Work Phone: [facility] 05-12-2024 10:26-0400 Diastolic blood pressure 52 mm[Hg] Tanya Blanco MD Work Phone: [facility] 05-12-2024 10:26-0400 Heart rate 55 /min Tanya Blanco MD Work Phone: [facility] 05-12-2024 10:26-0400 Respiratory rate 12 /min Tanya Blanco MD Work Phone: [facility] 05-12-2024 10:26-0400 Systolic blood pressure 110 mm[Hg] Tanya Blanco MD Work Phone: [facility] 05-11-2024 10:06-0400 Diastolic blood pressure 55 mm[Hg] Tanya Blanco MD Work Phone: [facility] 05-11-2024 10:06-0400 Heart rate 56 /min Tanya Blanco MD Work Phone: [facility] 05-11-2024 10:06-0400 Respiratory rate 20 /min Tanya Blanco MD Work Phone: [facility] 05-11-2024 10:06-0400 Systolic blood pressure 98 mm[Hg] Tanya Blanco MD Work Phone: [facility] 05-10-2024 10:27-0400 Diastolic blood pressure 59 mm[Hg] Tanya Blanco MD Work Phone: [facility] 05-10-2024 10:27-0400 Heart rate 56 /min Tanya Blanco MD Work Phone: [facility] 05-10-2024 10:27-0400 Respiratory rate 17 /min Tanya Blanco MD Work Phone: [facility] 05-10-2024 10:27-0400 Systolic blood pressure 101 mm[Hg] Tanya Blanco MD Work Phone: [facility] 04-05-2024 14:10-0400 Body height 157.5 cm Chair 1-2 [facility] 04-05-2024 14:10-0400 Body mass index (BMI) [Ratio] 22.24 kg/m2 Chair 1-2 [facility] 04-05-2024 14:10-0400 Body temperature 97.7 [degF] Chair 1-2 [facility] 04-05-2024 14:10-0400 Body weight 55.16 kg Chair 1-2 [facility] 04-05-2024 14:10-0400 Diastolic blood pressure 84 mm[Hg] Chair 1-2 [facility] 04-05-2024 14:10-0400 Heart rate 56 /min Chair 1-2 [facility] 04-05-2024 14:10-0400 Respiratory rate 16 /min Chair 1-2 [facility] 04-05-2024 14:10-0400 SaO2% (BldA) [Mass fraction] 100 % Chair 1-2 [facility] 04-05-2024 14:10-0400 Systolic blood pressure 122 mm[Hg] Chair 1-2 [facility] 03-25-2024 09:47-0400 Diastolic blood pressure 77 mm[Hg] Tanya Blanco MD Work Phone: [facility] 03-25-2024 09:47-0400 Heart rate 59 /min Tanya Blanco MD Work Phone: [facility] 03-25-2024 09:47-0400 Respiratory rate 15 /min Tanya Blanco MD Work Phone: [facility] 03-25-2024 09:47-0400 Systolic blood pressure 111 mm[Hg] Tanya Blanco MD Work Phone: [facility] 03-24-2024 10:33-0400 Diastolic blood pressure 54 mm[Hg] Tanya Blanco MD Work Phone: [facility] 03-24-2024 10:33-0400 Heart rate 55 /min Tanya Blanco MD Work Phone: [facility] 03-24-2024 10:33-0400 Respiratory rate 13 /min Tanya Blanco MD Work Phone: [facility] 03-24-2024 10:33-0400 Systolic blood pressure 100 mm[Hg] Tanya Blanco MD Work Phone: [facility] 03-23-2024 09:30-0400 Diastolic blood pressure 64 mm[Hg] Tanya Blanco MD Work Phone: [facility] 03-23-2024 09:30-0400 Heart rate 62 /min Tanya Blanco MD Work Phone: [facility] 03-23-2024 09:30-0400 Respiratory rate 14 /min Tanya Blanco MD Work Phone: [facility] 03-23-2024 09:30-0400 Systolic blood pressure 110 mm[Hg] Tanya Blanco MD Work Phone: [facility] 02-06-2024 09:25-0400 Body height 157.5 cm Lorenzo Lr MD Work Phone: [facility] 02-06-2024 09:25-0400 Body mass index (BMI) [Ratio] 23.19 kg/m2 Lorenzo Lr MD Work Phone: [facility] 02-06-2024 09:25-0400 Body weight 57.52 kg Lorenzo Lr MD Work Phone: [facility] 02-06-2024 09:25-0400 Diastolic blood pressure 85 mm[Hg] Lorenzo Lr MD Work Phone: [facility] 02-06-2024 09:25-0400 Heart rate 89 /min Lorenzo Lr MD Work Phone: [facility] [facility] 02-06-2024 09:25-0400 Systolic blood pressure 123 mm[Hg] Lorenzo Lr MD Work Phone: [facility] 04-17-2024 10:20-0400 Diastolic blood pressure 52 mm[Hg] Tanya Blanco MD Work Phone: [facility] 02-04-2024 10:20-0400 Heart rate 58 /min Tanya Blanco MD Work Phone: [facility] 02-04-2024 10:20-0400 Respiratory rate 16 /min Tanya Blanco MD Work Phone: [facility] 02-04-2024 10:20-0400 Systolic blood pressure 99 mm[Hg] Tanya Blanco MD Work Phone: [facility] 02-02-2024 10:30-0400 Diastolic blood pressure 60 mm[Hg] Tanya Blanco MD Work Phone: [facility] 02-02-2024 10:30-0400 Heart rate 57 /min Tanya Blanco MD Work Phone: [facility] 02-02-2024 10:30-0400 Respiratory rate 14 /min Tanya Blanco MD Work Phone: [facility] 02-02-2024 10:30-0400 Systolic blood pressure 119 mm[Hg] Tanya Blanco MD Work Phone: [facility] 01-05-2024 14:10-0400 Body height 157.5 cm Chair 1-2 [facility] 01-05-2024 14:10-0400 Body mass index (BMI) [Ratio] 22.9 kg/m2 Chair 1-2 [facility] 01-05-2024 14:10-0400 Body temperature 97.5 [degF] Chair 1-2 [facility] 01-05-2024 14:10-0400 Body weight 56.79 kg Chair 1-2 [facility] 01-05-2024 14:10-0400 Diastolic blood pressure 88 mm[Hg] Chair 1-2 [facility] 01-05-2024 14:10-0400 Heart rate 82 /min Chair 1-2 [facility] 01-05-2024 14:10-0400 Respiratory rate 16 /min Chair 1-2 [facility] 01-05-2024 14:10-0400 SaO2% (BldA) [Mass fraction] 99 % Chair 1-2 [facility] 01-05-2024 14:10-0400 Systolic blood pressure 134 mm[Hg] Chair 1-2 [facility] 12-31-2023 10:20-0400 Diastolic blood pressure 59 mm[Hg] Tanya Blanco MD Work Phone: [facility] 12-31-2023 10:20-0400 Heart rate 59 /min Tanya Blanco MD Work Phone: [facility] 12-31-2023 10:20-0400 Respiratory rate 12 /min Tanya Blanco MD Work Phone: [facility] 12-31-2023 10:20-0400 Systolic blood pressure 110 mm[Hg] Tanya Blanco MD Work Phone: [facility] 12-30-2023 10:18-0400 Diastolic blood pressure 58 mm[Hg] Tanya Blanco MD Work Phone: [facility] 12-30-2023 10:18-0400 Heart rate 57 /min Tanya Blanco MD Work Phone: [facility] 12-30-2023 10:18-0400 Respiratory rate 15 /min Tanya Blanco MD Work Phone: [facility] 12-30-2023 10:18-0400 Systolic blood pressure 109 mm[Hg] Tanya Blanco MD Work Phone: [facility] 12-29-2023 09:36-0400 Heart rate 55 /min Tanya Blanco MD Work Phone: [facility] 12-29-2023 09:36-0400 Respiratory rate 16 /min Tanya Blanco MD Work Phone: [facility] 12-29-2023 07:47-0400 Diastolic blood pressure 55 mm[Hg] Tanya Blanco MD Work Phone: [facility] 12-29-2023 07:47-0400 Systolic blood pressure 102 mm[Hg] Tanya Blanco MD Work Phone: [facility] 12-11-2023 09:08-0500 Body height 157.5 cm Ant Xavier MD Work Phone: [facility] 12-11-2023 09:08-0500 Body weight 57.15 kg Ant Xavier MD Work Phone: [facility] 12-11-2023 09:08-0500 Diastolic blood pressure 66 mm[Hg] Ant Xavier MD Work Phone: [facility] 12-11-2023 09:08-0500 Heart rate 60 /min Ant Xavier MD Work Phone: [facility] 12-11-2023 09:08-0500 Respiratory rate 14 /min Ant Xavier MD Work Phone: [facility] 12-11-2023 09:08-0500 SaO2% (BldA) [Mass fraction] 99 % Ant Xavier MD Work Phone: [facility] 12-11-2023 09:08-0500 Systolic blood pressure 116 mm[Hg] Ant Xavier MD Work Phone: [facility] 12-03-2023 10:25-0500 Diastolic blood pressure 77 mm[Hg] Tanya Blanco MD Work Phone: [facility] 12-03-2023 10:25-0500 Heart rate 52 /min Tanya Blanco MD Work Phone: [facility] 12-03-2023 10:25-0500 Respiratory rate 17 /min Tanya Blanco MD Work Phone: [facility] 12-03-2023 10:25-0500 Systolic blood pressure 112 mm[Hg] Tanya Blanco MD Work Phone: [facility] 12-02-2023 10:25-0500 Diastolic blood pressure 54 mm[Hg] Tanya Blanco MD Work Phone: [facility] 12-02-2023 10:25-0500 Heart rate 55 /min Tanya Blanco MD Work Phone: [facility] 12-02-2023 10:25-0500 Respiratory rate 14 /min Tanya Blanco MD Work Phone: [facility] 12-02-2023 10:25-0500 Systolic blood pressure 109 mm[Hg] Tanya Blanco MD Work Phone: [facility] 12-01-2023 10:15-0500 Heart rate 55 /min Tanya Blanco MD Work Phone: [facility] 12-01-2023 10:15-0500 Respiratory rate 17 /min Tanya Blanco MD Work Phone: [facility] 12-01-2023 08:03-0500 Diastolic blood pressure 55 mm[Hg] Tanya Blanco MD Work Phone: [facility] 12-01-2023 08:03-0500 Systolic blood pressure 102 mm[Hg] Tanya Blanco MD Work Phone: [facility] 11-12-2023 08:50-0500 Body height 157.5 cm Lorenzo Lr MD Work Phone: [facility] 11-12-2023 08:50-0500 Body mass index (BMI) [Ratio] 23.16 kg/m2 Lorenzo Lr MD Work Phone: [facility] 11-12-2023 08:50-0500 Body weight 57.42 kg Lorenzo Lr MD Work Phone: [facility] 11-12-2023 08:50-0500 Diastolic blood pressure 69 mm[Hg] Lorenzo Lr MD Work Phone: [facility] 11-12-2023 08:50-0500 Heart rate 63 /min Lorenzo Lr MD Work Phone: [facility] 11-12-2023 08:50-0500 Systolic blood pressure 114 mm[Hg] Lorenzo Lr MD Work Phone: [facility] 11-05-2023 10:25-0500 Diastolic blood pressure 70 mm[Hg] Tanya Blanco MD Work Phone: [facility] 11-05-2023 10:25-0500 Heart rate 66 /min Tanya Blanco MD Work Phone: [facility] 11-05-2023 10:25-0500 Respiratory rate 14 /min Tanya Blanco MD Work Phone: [facility] 11-05-2023 10:25-0500 Systolic blood pressure 108 mm[Hg] Tanya Blanco MD Work Phone: [facility] 11-04-2023 10:20-0500 Diastolic blood pressure 68 mm[Hg] Tanya Blanco MD Work Phone: [facility] 11-04-2023 10:20-0500 Heart rate 64 /min Tanya Blanco MD Work Phone: [facility] 11-04-2023 10:20-0500 Respiratory rate 14 /min Tanya Blanco MD Work Phone: [facility] 11-04-2023 10:20-0500 Systolic blood pressure 110 mm[Hg] Tanya Blanco MD Work Phone: [facility] 11-03-2023 10:30-0500 Diastolic blood pressure 50 mm[Hg] Tanya Blanco MD Work Phone: [facility] 11-03-2023 10:30-0500 Heart rate 58 /min Tanya Blanco MD Work Phone: [facility] 11-03-2023 10:30-0500 Respiratory rate 18 /min Tanya Blanco MD Work Phone: [facility] 11-03-2023 10:30-0500 Systolic blood pressure 109 mm[Hg] Tanya Blanco MD Work Phone: [facility] 10-10-2023 10:35-0500 Diastolic blood pressure 78 mm[Hg] Lindsey Duncan DOG BREEDER - [employer] Work Phone: [facility] 10-10-2023 10:35-0500 Heart rate 62 /min Lindsey Duncan DOG BREEDER - [employer] Work Phone: [facility] 10-10-2023 10:35-0500 Respiratory rate 20 /min Lindsey Duncan DOG BREEDER - [employer] Work Phone: [facility] 10-10-2023 10:35-0500 Systolic blood pressure 107 mm[Hg] Lindsey Duncan DOG BREEDER - [employer] Work Phone: [facility] 10-09-2023 10:19-0500 Diastolic blood pressure 77 mm[Hg] Tanya Blanco MD Work Phone: [facility] 10-09-2023 10:19-0500 Heart rate 55 /min Tanya Blanco MD Work Phone: [facility] 10-09-2023 10:19-0500 Respiratory rate 22 /min Tanya Blanco MD Work Phone: [facility] 10-09-2023 10:19-0500 Systolic blood pressure 110 mm[Hg] Tanya Blanco MD Work Phone: [facility] 10-08-2023 10:35-0500 Diastolic blood pressure 54 mm[Hg] Tanya Blanco MD Work Phone: [facility] 10-08-2023 10:35-0500 Heart rate 55 /min Tanya Blanco MD Work Phone: [facility] 10-08-2023 10:35-0500 Respiratory rate 16 /min Tanya Blanco MD Work Phone: [facility] 10-08-2023 10:35-0500 Systolic blood pressure 98 mm[Hg] Tanya Blanco MD Work Phone: [facility] 10-06-2023 13:51-0500 Body height 157.5 cm Chair 1-2 [facility] 10-06-2023 13:51-0500 Body mass index (BMI) [Ratio] 20.12 kg/m2 Chair 1-2 [facility] 10-06-2023 13:51-0500 Body temperature 97.2 [degF] Chair 1-2 [facility] 10-06-2023 13:51-0500 Body weight 49.9 kg Chair 1-2 [facility] 10-06-2023 13:51-0500 Diastolic blood pressure 85 mm[Hg] Chair 1-2 [facility] 10-06-2023 13:51-0500 Heart rate 82 /min Chair 1-2 [facility] 10-06-2023 13:51-0500 Respiratory rate 16 /min Chair 1-2 [facility] 10-06-2023 13:51-0500 SaO2% (BldA) [Mass fraction] 100 % Chair 1-2 [facility] 10-06-2023 13:51-0500 Systolic blood pressure 127 mm[Hg] Chair 1-2 [facility] 09-09-2023 10:22-0500 Diastolic blood pressure 65 mm[Hg] Tanya Blanco MD Work Phone: [facility] 09-09-2023 10:22-0500 Heart rate 63 /min Tanya Blanco MD Work Phone: [facility] 09-09-2023 10:22-0500 Respiratory rate 16 /min Tanya Blanco MD Work Phone: [facility] 09-09-2023 10:22-0500 Systolic blood pressure 109 mm[Hg] Tanya Blanco MD Work Phone: [facility] 09-08-2023 10:20-0500 Diastolic blood pressure 78 mm[Hg] Tanya Blanco MD Work Phone: [facility] 09-08-2023 10:20-0500 Heart rate 66 /min Tanya Blanco MD Work Phone: [facility] 09-08-2023 10:20-0500 Respiratory rate 12 /min Tanya Blanco MD Work Phone: [facility] 09-08-2023 10:20-0500 Systolic blood pressure 108 mm[Hg] Tanya Blanco MD Work Phone: [facility] 08-15-2023 13:17-0400 Body mass index (BMI) [Ratio] 21.58 kg/m2 Iron Jaime CNP Work Phone: [facility] 08-15-2023 13:17-0400 Body weight 53.52 kg Iron Krishnan DOG BREEDER - [employer] Work Phone: [facility] 08-15-2023 13:17-0400 Diastolic blood pressure 89 mm[Hg] Iron Krishnan DOG BREEDER - [employer] Work Phone: [facility] 08-15-2023 13:17-0400 Heart rate 74 /min Iron Krishnan DOG BREEDER - [employer] Work Phone: [facility] 08-15-2023 13:17-0400 Systolic blood pressure 130 mm[Hg] Iron Krishnan DOG BREEDER - PROFESSOR [employer] Work Phone: [facility] 08-07-2023 09:00-0400 Heart rate 59 /min Tanya Blanco MD Work Phone: [facility] 08-07-2023 09:00-0400 Respiratory rate 12 /min Tanya Blanco MD Work Phone: [facility] 08-07-2023 09:00-0400 SaO2% (BldA) [Mass fraction] 99 % Tanya Blanco MD Work Phone: [facility] 08-07-2023 07:51-0400 Diastolic blood pressure 56 mm[Hg] Tanya Blanco MD Work Phone: [facility] 08-07-2023 07:51-0400 Systolic blood pressure 111 mm[Hg] Tanya Blanco MD Work Phone: [facility] 08-06-2023 09:52-0400 Heart rate 69 /min Tanya Blanco MD Work Phone: [facility] 08-06-2023 09:52-0400 Respiratory rate 20 /min Tanya Blanco MD Work Phone: [facility] 08-06-2023 09:52-0400 SaO2% (BldA) [Mass fraction] 99 % Tanya Blanco MD Work Phone: [facility] 08-06-2023 07:32-0400 Body mass index (BMI) [Ratio] 21.77 kg/m2 Tanya Blanco MD Work Phone: [facility] 08-06-2023 07:32-0400 Body weight 53.98 kg Tanya Blanco MD Work Phone: [facility] 08-06-2023 07:32-0400 Diastolic blood pressure 56 mm[Hg] Tanya Blanco MD Work Phone: [facility] 08-06-2023 07:32-0400 Systolic blood pressure 105 mm[Hg] Tanya Blanco MD Work Phone: [facility] 08-05-2023 09:58-0400 Body temperature 98.4 [degF] Dr. Nikky Pillai Work Phone: [facility] 08-05-2023 09:58-0400 Diastolic blood pressure 80 mm[Hg] Dr. Nikky Pillai Work Phone: [facility] 08-05-2023 09:58-0400 Heart rate 83 /min Dr. Nikky Pillai Work Phone: [facility] 08-05-2023 09:58-0400 Respiratory rate 17 /min Dr. Nikky Pillai Work Phone: [facility] 08-05-2023 09:58-0400 SaO2% (BldA) [Mass fraction] 97 % Dr. Nikky Pillai Work Phone: [facility] 08-05-2023 09:58-0400 Systolic blood pressure 120 mm[Hg] Dr. Nikky Pillai Work Phone: [facility] 07-14-2023 11:33-0400 Body height 157.5 cm Chair - [facility] 07-14-2023 11:33-0400 Body mass index (BMI) [Ratio] 21.85 kg/m2 Chair 10-23 [facility] 07-14-2023 11:33-0400 Body temperature 97.39 [degF] Chair 1-4 [facility] 07-14-2023 11:33-0400 Body weight 54.18 kg Chair 1-4 [facility] 07-14-2023 11:33-0400 Diastolic blood pressure 84 mm[Hg] Chair 1-4 [facility] 07-14-2023 11:33-0400 Heart rate 58 /min Chair 1-4 [facility] 07-14-2023 11:33-0400 Respiratory rate 16 /min Chair 1-4 [facility] 07-14-2023 11:33-0400 Systolic blood pressure 136 mm[Hg] Chair 1-4 [facility] 07-04-2023 10:46-0400 Body mass index (BMI) [Ratio] 22.42 kg/m2 Chair 1-3 [facility] 07-04-2023 10:46-0400 Body temperature 97.81 [degF] Chair 1-3 [facility] 07-04-2023 10:46-0400 Body weight 55.61 kg Chair 1-3 [facility] 07-04-2023 10:46-0400 Diastolic blood pressure 86 mm[Hg] Chair 1-3 [facility] 07-04-2023 10:46-0400 Heart rate 59 /min Chair 1-3 [facility] 07-04-2023 10:46-0400 Respiratory rate 16 /min Chair 1-3 [facility] 07-04-2023 10:46-0400 SaO2% (BldA) [Mass fraction] 99 % Chair 1-3 [facility] 07-04-2023 10:46-0400 Systolic blood pressure 127 mm[Hg] Chair 1-3 [facility] 07-03-2023 06:59-0400 Body temperature 98.4 [degF] Dr. Nikky Pillai Work Phone: [facility] 07-03-2023 06:59-0400 Diastolic blood pressure 84 mm[Hg] Dr. Nikky Pillai Work Phone: [facility] 07-03-2023 06:59-0400 Heart rate 64 /min Dr. Nikky Pillai Work Phone: [facility] 07-03-2023 06:59-0400 Respiratory rate 14 /min Dr. Nikky Pillai Work Phone: [facility] 07-03-2023 06:59-0400 SaO2% (BldA) [Mass fraction] 97 % Dr. Nikky Pillai Work Phone: [facility] 07-03-2023 06:59-0400 Systolic blood pressure 132 mm[Hg] Dr. Nikky Pillai Work Phone: [facility] 06-17-2023 09:44-0400 Heart rate 53 /min Tanya Blanco MD Work Phone: [facility] 06-17-2023 09:44-0400 Respiratory rate 22 /min Tanya Blanco MD Work Phone: [facility] 06-17-2023 09:44-0400 SaO2% (BldA) [Mass fraction] 98 % Tanya Blanco MD Work Phone: [facility] 06-17-2023 08:30-0400 Diastolic blood pressure 59 mm[Hg] Tanya Blanco MD Work Phone: [facility] 06-17-2023 08:30-0400 Systolic blood pressure 101 mm[Hg] Tanya Blanco MD Work Phone: [facility] 06-17-2023 07:28-0400 Body mass index (BMI) [Ratio] 24.51 kg/m2 Tanya Blanco MD Work Phone: [facility] 06-17-2023 07:28-0400 Body weight 60.78 kg Tanya Blanco MD Work Phone: [facility] 06-16-2023 10:03-0400 Heart rate 58 /min Tanya Blanco MD Work Phone: [facility] 06-16-2023 10:03-0400 Respiratory rate 16 /min Tanya Blanco MD Work Phone: [facility] 06-16-2023 10:03-0400 SaO2% (BldA) [Mass fraction] 99 % Tanya Blanco MD Work Phone: [facility] 06-16-2023 09:00-0400 Diastolic blood pressure 57 mm[Hg] Tanya Blanco MD Work Phone: [facility] 06-16-2023 09:00-0400 Systolic blood pressure 101 mm[Hg] Tanya Blanco MD Work Phone: [facility] 06-16-2023 07:27-0400 Body mass index (BMI) [Ratio] 24.51 kg/m2 Tanya Blanco MD Work Phone: [facility] 06-16-2023 07:27-0400 Body weight 60.78 kg Tanya Blanco MD Work Phone: [facility] 05-16-2023 10:26-0400 Heart rate 57 /min Tanya Blanco MD Work Phone: [facility] 05-16-2023 10:26-0400 Respiratory rate 20 /min Tanya Blanco MD Work Phone: [facility] 05-16-2023 10:26-0400 SaO2% (BldA) [Mass fraction] 99 % Tanya Blanco MD Work Phone: [facility] 05-16-2023 09:00-0400 Diastolic blood pressure 56 mm[Hg] Tanya Blanco MD Work Phone: [facility] 05-16-2023 09:00-0400 Systolic blood pressure 111 mm[Hg] Tanya Blanco MD Work Phone: [facility] 05-15-2023 10:13-0400 Diastolic blood pressure 52 mm[Hg] Tanya Blanco MD Work Phone: [facility] 05-15-2023 10:13-0400 Heart rate 56 /min Tanya Blanco MD Work Phone: [facility] 05-15-2023 10:13-0400 Respiratory rate 13 /min Tanya Blanco MD Work Phone: [facility] 05-15-2023 10:13-0400 Systolic blood pressure 101 mm[Hg] Tanya Blanco MD Work Phone: [facility] 05-15-2023 09:42-0400 SaO2% (BldA) [Mass fraction] 99 % Tanya Blanco MD Work Phone: [facility] 05-15-2023 07:52-0400 Body mass index (BMI) [Ratio] 24.51 kg/m2 Tanya Blanco MD Work Phone: [facility] 05-15-2023 07:52-0400 Body weight 60.78 kg Tanya Blanco MD Work Phone: [facility] 05-14-2023 10:00-0400 Diastolic blood pressure 58 mm[Hg] Tanya Blanco MD Work Phone: [facility] 05-14-2023 10:00-0400 Heart rate 57 /min Tanya Blanco MD Work Phone: [facility] 05-14-2023 10:00-0400 Respiratory rate 22 /min Tanya Blanco MD Work Phone: [facility] 05-14-2023 10:00-0400 SaO2% (BldA) [Mass fraction] 99 % Tanya Blanco MD Work Phone: [facility] 05-14-2023 10:00-0400 Systolic blood pressure 94 mm[Hg] Tanya Blanco MD Work Phone: [facility] 05-14-2023 07:42-0400 Body mass index (BMI) [Ratio] 24.51 kg/m2 Tanya Blanco MD Work Phone: [facility] 05-14-2023 07:42-0400 Body weight 60.78 kg Tanya Blanco MD Work Phone: [facility] 04-08-2023 11:41-0400 Body height 157.5 cm Lorenzo Lr MD Work Phone: [facility] 04-08-2023 11:41-0400 Body mass index (BMI) [Ratio] 24.58 kg/m2 Lorenzo Lr MD Work Phone: [facility] 04-08-2023 11:41-0400 Body weight 60.96 kg Lorenzo Lr MD Work Phone: [facility] 04-08-2023 11:41-0400 Diastolic blood pressure 89 mm[Hg] Lorenzo Lr MD Work Phone: [facility] 04-08-2023 11:41-0400 Heart rate 66 /min Lorenzo Lr MD Work Phone: [facility] 04-08-2023 11:41-0400 Systolic blood pressure 146 mm[Hg] Lorenzo Lr MD Work Phone: [facility] 04-01-2023 13:28-0400 Body mass index (BMI) [Ratio] 24.09 kg/m2 Chair 1-1 [facility] 04-01-2023 13:28-0400 Body temperature 97.59 [degF] Chair 1-1 [facility] 04-01-2023 13:28-0400 Body weight 59.74 kg Chair 1-1 [facility] 04-01-2023 13:28-0400 Diastolic blood pressure 68 mm[Hg] Chair 1-1 [facility] 04-01-2023 13:28-0400 Heart rate 64 /min Chair 1-1 [facility] 04-01-2023 13:28-0400 Respiratory rate 16 /min Chair 1-1 [facility] 04-01-2023 13:28-0400 SaO2% (BldA) [Mass fraction] 100 % Chair 1-1 [facility] 04-01-2023 13:28-0400 Systolic blood pressure 116 mm[Hg] Chair 1-1 [facility] 02-03-2023 13:41-0400 Body height 157.5 cm Venu Mccall MD Work Phone: [facility] 02-03-2023 13:41-0400 Body mass index (BMI) [Ratio] 22.53 kg/m2 Venu Mccall MD Work Phone: [facility] 02-03-2023 13:41-0400 Body weight 55.88 kg Venu Mccall MD Work Phone: [facility] 02-03-2023 13:41-0400 Diastolic blood pressure 75 mm[Hg] Venu Mccall MD Work Phone: [facility] 02-03-2023 13:41-0400 Heart rate 95 /min Venu Mccall MD Work Phone: [facility] 02-03-2023 13:41-0400 Systolic blood pressure 106 mm[Hg] Venu Mccall MD Work Phone: [facility] 01-27-2023 12:13-0400 Body mass index (BMI) [Ratio] 22.75 kg/m2 Lorenzo Lr MD Work Phone: [facility] 01-27-2023 12:13-0400 Body weight 56.43 kg Lorenzo Lr MD Work Phone: [facility] 01-27-2023 12:13-0400 Diastolic blood pressure 73 mm[Hg] Lorenzo Lr MD Work Phone: [facility] 01-27-2023 12:13-0400 Heart rate 71 /min Lorenzo Lr MD Work Phone: [facility] 01-27-2023 12:13-0400 Systolic blood pressure 144 mm[Hg] Lorenzo Lr MD Work Phone: [facility] 01-02-2023 14:22-0400 Body temperature 97.5 [degF] Chair 3-2 [facility] 01-02-2023 14:22-0400 Diastolic blood pressure 69 mm[Hg] Chair 3-2 [facility] 01-02-2023 14:22-0400 Heart rate 63 /min Chair 3-2 [facility] 01-02-2023 14:22-0400 Respiratory rate 18 /min Chair 3-2 [facility] 01-02-2023 14:22-0400 SaO2% (BldA) [Mass fraction] 99 % Chair 3-2 [facility] 01-02-2023 14:22-0400 Systolic blood pressure 104 mm[Hg] Chair 3-2 [facility] 01-02-2023 14:19-0400 Body mass index (BMI) [Ratio] 22.5 kg/m2 Chair 3-2 [facility] 01-02-2023 14:19-0400 Body weight 55.79 kg Chair 3-2 [facility] 12-21-2022 09:30-0500 Body height [address] Nikky Pillai Work Phone: [facility] 12-21-2022 09:30-0500 Body weight 53.[address] Nikky Pillai Work Phone: [facility] 12-21-2022 08:23-0500 Body temperature 97.5 [degF] Dr. Nikky Pillai Work Phone: [facility] 12-21-2022 08:23-0500 Diastolic blood pressure 77 mm[Hg] Dr. Nikky Pillai Work Phone: [facility] 12-21-2022 08:23-0500 Heart rate 57 /min Dr. Nikky Pillai Work Phone: [facility] 12-21-2022 08:23-0500 Respiratory rate 18 /min Dr. Nikky Pillai Work Phone: [facility] 12-21-2022 08:23-0500 SaO2% (BldA) [Mass fraction] 97 % Dr. Nikky Pillai Work Phone: [facility] 12-21-2022 08:23-0500 Systolic blood pressure 120 mm[Hg] Dr. Nikky Pillai Work Phone: [facility] 12-20-2022 05:51-0500 Body mass index (BMI) [Ratio] 21.7 kg/m2 Dr. Nikky Pillai Work Phone: [facility] 12-18-2022 20:32-0500 Body temperature 98 [degF] Dr. Nikky Pillai Work Phone: [facility] 12-18-2022 20:32-0500 Diastolic blood pressure 69 mm[Hg] Dr. Nikky Pillai Work Phone: [facility] 12-18-2022 20:32-0500 Heart rate 69 /min Dr. Nikky Pillai Work Phone: [facility] 12-18-2022 20:32-0500 Respiratory rate 16 /min Dr. Nikky Pillai Work Phone: [facility] 12-18-2022 20:32-0500 SaO2% (BldA) [Mass fraction] 97 % Dr. Nikky Pillai Work Phone: [facility] 12-18-2022 20:32-0500 Systolic blood pressure 99 mm[Hg] Dr. Nikky Pillai Work Phone: [phone] [address] 12-18-2022 10:24-0500 Body height 157.[address] Nikky Pillai Work Phone: [phone])[phone] [address] 12-18-2022 10:24-0500 Body mass index (BMI) [Ratio] 21.4 kg/m2 Dr. Nikky Pillai Work Phone: 7(908)[phone] [place] [address] 12-18-2022 10:24-0500 Body weight 53.[address] Nikky Pillai Work Phone: [facility] 12-12-2022 19:40-0500 Diastolic blood pressure 82 mm[Hg] Dr. Nikky Pillai Work Phone: [facility] 12-12-2022 19:40-0500 Heart rate 61 /min Dr. Nikky Pillai Work Phone: [facility] 12-12-2022 19:40-0500 Respiratory rate 18 /min Dr. Nikky Pillai Work Phone: [facility] 12-12-2022 19:40-0500 SaO2% (BldA) [Mass fraction] 100 % Dr. Nikky Pillai Work Phone: [facility] 12-12-2022 19:40-0500 Systolic blood pressure 132 mm[Hg] Dr. Nikky Pillai Work Phone: [facility] 12-12-2022 16:07-0500 Body height 157.[address] Nikky Pillai Work Phone: [facility] 12-12-2022 16:07-0500 Body mass index (BMI) [Ratio] 22.4 kg/m2 Dr. Nikky Pillai Work Phone: [facility] 12-12-2022 16:07-0500 Body temperature 97.6 [degF] Dr. Nikky Pillai Work Phone: [facility] 12-12-2022 16:07-0500 Body weight 55.[address] Nikky Pillai Work Phone: [facility] 12-02-2022 13:14-0500 Body height 157.5 cm Lorenzo Lr MD Work Phone: [facility] 12-02-2022 13:14-0500 Body mass index (BMI) [Ratio] 22.86 kg/m2 Lorenzo Lr MD Work Phone: [facility] 12-02-2022 13:14-0500 Body weight 56.7 kg Lorenzo Lr MD Work Phone: [facility] 12-02-2022 13:14-0500 Diastolic blood pressure 82 mm[Hg] Lorenzo Lr MD Work Phone: [facility] 12-02-2022 13:14-0500 Heart rate 82 /min Lorenzo Lr MD Work Phone: [facility] 12-02-2022 13:14-0500 Systolic blood pressure 123 mm[Hg] Lorenzo Lr MD Work Phone: [facility] 08-18-2022 13:00-0400 Diastolic blood pressure 68 mm[Hg] Dr. Nikky Pillai Work Phone: [facility] 08-18-2022 13:00-0400 Heart rate 70 /min Dr. Nikky Pillai Work Phone: [facility] 08-18-2022 13:00-0400 Respiratory rate 16 /min Dr. Nikky Pillai Work Phone: [facility] 08-18-2022 13:00-0400 SaO2% (BldA) [Mass fraction] 99 % Dr. Nikky Pillai Work Phone: [facility] 08-18-2022 13:00-0400 Systolic blood pressure 120 mm[Hg] Dr. Nikky Pillai Work Phone: [facility] 08-18-2022 10:16-0400 Body mass index (BMI) [Ratio] 24.5 kg/m2 Dr. Nikky Pillai Work Phone: [facility] 08-18-2022 10:16-0400 Body temperature 97.5 [degF] Dr. Nikky Pillai Work Phone: [facility] 08-18-2022 10:16-0400 Body weight [address] Nikky Pillai Work Phone: [facility] 04-16-2022 19:51-0400 Diastolic blood pressure 78 mm[Hg] Dr. Nikky Pillai Work Phone: [facility] Work Phone: 04-16-2022 19:51-0400 Heart rate 60 /min Dr. Nikky Pillai Work Phone: [facility] Work Phone: 04-16-2022 19:51-0400 Respiratory rate 15 /min Dr. Nikky Pillai Work Phone: [facility] Work Phone: 04-16-2022 19:51-0400 SaO2% (BldA) [Mass fraction] 100 % Dr. Nikky Pillai Work Phone: [facility] Work Phone: 04-16-2022 19:51-0400 Systolic blood pressure 110 mm[Hg] Dr. Nikky Pillai Work Phone: [facility] Work Phone: 04-16-2022 16:34-0400 Body height 157.[address] Nikky Pillai Work Phone: [facility] Work Phone: 04-16-2022 16:34-0400 Body mass index (BMI) [Ratio] 21.9 kg/m2 Dr. Nikky Pillai Work Phone: [facility] Work Phone: 04-16-2022 16:34-0400 Body temperature 97.3 [degF] Dr. Nikky Pillai Work Phone: [facility] Work Phone: 04-16-2022 16:34-0400 Body weight 54.[address] Nikky Pillai Work Phone: [facility] Work Phone: 03-16-2022 08:30-0400 Body temperature 100 [degF] Dr. Nikky Pillai Work Phone: [facility] Work Phone: 03-16-2022 08:30-0400 Diastolic blood pressure 72 mm[Hg] Dr. Nikky Pillai Work Phone: [facility] Work Phone: 03-16-2022 08:30-0400 Heart rate 86 /min Dr. Nikky Pillai Work Phone: [facility] Work Phone: 03-16-2022 08:30-0400 Respiratory rate 16 /min Dr. Nikky Pillai Work Phone: [facility] Work Phone: 03-16-2022 08:30-0400 SaO2% (BldA) [Mass fraction] 99 % Dr. Nikky Pillai Work Phone: [facility] Work Phone: 03-16-2022 08:30-0400 Systolic blood pressure 124 mm[Hg] Dr. Nikky Pillai Work Phone: [facility] Work Phone: 02-21-2022 08:10-0400 Body temperature 98.3 [degF] Dr. Nikky Pillai Work Phone: [facility] Work Phone: 02-21-2022 08:10-0400 Diastolic blood pressure 61 mm[Hg] Dr. Nikky Pillai Work Phone: [facility] Work Phone: 02-21-2022 08:10-0400 Heart rate 63 /min Dr. Nikky Pillai Work Phone: [facility] Work Phone: 02-21-2022 08:10-0400 Respiratory rate 16 /min Dr. Nikky Pillai Work Phone: [facility] Work Phone: 02-21-2022 08:10-0400 SaO2% (BldA) [Mass fraction] 99 % Dr. Nikky Pillai Work Phone: [facility] Work Phone: 02-21-2022 08:10-0400 Systolic blood pressure 96 mm[Hg] Dr. Nikky Pillai Work Phone: [facility] Work Phone: 02-21-2022 06:40-0400 Body height 157.[address] Nikky Pillai Work Phone: [facility] Work Phone: 02-21-2022 06:40-0400 Body mass index (BMI) [Ratio] 22.9 kg/m2 Dr. Nikky Pillai Work Phone: [facility] Work Phone: 02-21-2022 06:40-0400 Body weight [address] Nikky Pillai Work Phone: [facility] Work Phone: 02-20-2022 08:25-0400 Body mass index (BMI) [Ratio] 22.8 kg/m2 Dr. Nikky Pillai Work Phone: [facility] Work Phone: 02-20-2022 08:25-0400 Body weight 56.[address] Nikky Pillai Work Phone: [facility] Work Phone: 02-20-2022 08:25-0400 Diastolic blood pressure 80 mm[Hg] Dr. Nikky Pillai Work Phone: [facility] Work Phone: 02-20-2022 08:25-0400 Heart rate 99 /min Dr. Nikky Pillai Work Phone: [facility] Work Phone: 02-20-2022 08:25-0400 Respiratory rate 16 /min Dr. Nikky Pillai Work Phone: [facility] Work Phone: 02-20-2022 08:25-0400 SaO2% (BldA) [Mass fraction] 99 % Dr. Nikky Pillai Work Phone: [facility] Work Phone: 02-20-2022 08:25-0400 Systolic blood pressure 120 mm[Hg] Dr. Nikky Pillai Work Phone: [facility] Work Phone: 02-20-2022 08:25-0400 Body mass index (BMI) [Ratio] 22.8 kg/m2 Dr. Nikky Pillai Work Phone: [facility] Work Phone: 02-20-2022 08:25-0400 Body weight 56.[address] Nikky Pillai Work Phone: [facility] Work Phone: 02-20-2022 08:25-0400 Diastolic blood pressure 80 mm[Hg] Dr. Nikky Pillai Work Phone: [facility] Work Phone: 02-20-2022 08:25-0400 Heart rate 99 /min Dr. Nikky Pillai Work Phone: [facility] Work Phone: 02-20-2022 08:25-0400 Respiratory rate 16 /min Dr. Nikky Pillai Work Phone: [facility] Work Phone: 02-20-2022 08:25-0400 SaO2% (BldA) [Mass fraction] 99 % Dr. Nikky Pillai Work Phone: [facility] Work Phone: 02-20-2022 08:25-0400 Systolic blood pressure 120 mm[Hg] Dr. Nikky Pillai Work Phone: [facility] Work Phone: 12-17-2021 13:52-0500 Body height 157.48 cm Nikky Cotto [employer]ovannabruceloren[employer] Work Phone: LP-Bcpsomfbk-Qyojx 204 Work Phone: 12-17-2021 13:52-0500 Body mass index (BMI) [Ratio] 22.89 kg/m2 Nikky Cotto Geovannabrucelorenzo Work Phone: AV-Swpmakcbo-Daqzq 204 Work Phone: 12-17-2021 13:52-0500 Body surface area Derived from formula 1.57 m2 Nikky Cotto Geovannabrucelorenzo Work Phone: VR-Pnmozfvai-Gvppd 204 Work Phone: 12-17-2021 13:52-0500 Body temperature 97.7 [degF] Nikky Pillai Work Phone: RW-Rhfknnlbw-Adfjm 204 Work Phone: 12-17-2021 13:52-0500 Body weight 56.76 kg Nikky Lauiff Work Phone: AG-Nzxbwqtuz-Negjc 204 Work Phone: 12-17-2021 13:52-0500 Diastolic blood pressure 65 mm[Hg] Nikky S Jolliff Work Phone: HL-Qshwnwynf-Yxygv 204 Work Phone: 12-17-2021 13:52-0500 Heart rate 55 /min Nikky S Jolliff Work Phone: XG-Izzncvizz-Utrca 204 Work Phone: 12-17-2021 13:52-0500 Respiratory rate 16 /min Nikky S Jolliff Work Phone: GF-Epltviokw-Ovmgd 204 Work Phone: 12-17-2021 13:52-0500 Systolic blood pressure 99 mm[Hg] Nikky S Jolliff Work Phone: MH-Jzmdssuqh-Pntyb 204 Work Phone: 11-13-2021 10:16-0500 8 1 Nikky S Jolliff Work Phone: ZL-Lgnayacxqp-Rgsk er [address] [place] [address] Work Phone: Comment on above: PHQ-9 TS 11-13-2021 09:46-0500 Body height 157.48 cm Nikky S Jolliff Work Phone: KD-Etuamqxopu-Xscv er [address] [place] [address] Work Phone: 11-13-2021 09:46-0500 Body mass index (BMI) [Ratio] 22.87 kg/m2 Nikky S Jolliff Work Phone: TT-Hwixxorkei-Dlnx er [address] [place] [address] Work Phone: 11-13-2021 09:46-0500 Body surface area Derived from formula 1.57 m2 Nikky S Jolliff Work Phone: RS-Hitwbfnial-Orbu er [facility] [place] Work Phone: 11-13-2021 09:46-0500 Body temperature 98.1 [degF] Nikky S Jolliff Work Phone: SP-Tpeoordrmf-Jgay er [facility] [place] Work Phone: 11-13-2021 09:46-0500 Body weight 56.72 kg Nikky S Jolliff Work Phone: JA-Bwrgesevjq-Cnvz er [address] [place] Work Phone: 11-13-2021 09:46-0500 Diastolic blood pressure 72 mm[Hg] Nikky S Jolliff Work Phone: HX-Dcvwtofgde-Fvwa er [address] [place] Work Phone: 11-13-2021 09:46-0500 Heart rate 70 /min Nikky S Jolliff Work Phone: UO-Ropguqrrly-Igjk er [address] [place] Work Phone: 11-13-2021 09:46-0500 SaO2% (BldA) [Mass fraction] 98 % Nikky S Jolliff Work Phone: DR-Uegtysjkeg-Fnrv er [address] [place] Work Phone: 11-13-2021 09:46-0500 Systolic blood pressure 108 mm[Hg] Nikky S Jolliff Work Phone: IJ-Njctdfyhpb-Tkvx er [address] [place] Work Phone: 09-10-2021 11:43-0500 Body height 157.48 cm Nikky S Jolliff Work Phone: EG-Arelxipqb-Gnrqp 204 Work Phone: 09-10-2021 11:43-0500 Body mass index (BMI) [Ratio] 22.57 kg/m2 Nikky S Jolliff Work Phone: TL-Sqsgbqgxx-Cruql 204 Work Phone: 09-10-2021 11:43-0500 Body surface area Derived from formula 1.56 m2 Nikky S Jolliff Work Phone: CC-Pmfyfmzll-Gubwm 204 Work Phone: 09-10-2021 11:43-0500 Body temperature 97.6 [degF] Nikky S Jolliff Work Phone: BR-Jltnxwyvo-Gstnh 204 Work Phone: 09-10-2021 11:43-0500 Body weight 55.97 kg Nikky S Jolliff Work Phone: JR-Smaqayutc-Qeqco 204 Work Phone: 09-10-2021 11:43-0500 Diastolic blood pressure 74 mm[Hg] Nikky S Jolliff Work Phone: LF-Odvucgjfy-Alvqi 204 Work Phone: 09-10-2021 11:43-0500 Heart rate 94 /min Nikky S Jolliff Work Phone: QF-Keywopkqx-Fyaqq 204 Work Phone: 09-10-2021 11:43-0500 Respiratory rate 16 /min Nikky S Jolliff Work Phone: AZ-Xmrkxyxng-Hphds 204 Work Phone: 09-10-2021 11:43-0500 SaO2% (BldA) [Mass fraction] 99 % Nikky S Jolliff Work Phone: QY-Vkomizvqy-Glozq 204 Work Phone: 09-10-2021 11:43-0500 Systolic blood pressure 116 mm[Hg] Nikky S Jolliff Work Phone: QR-Ifbtipdpg-Qwfuq 204 Work Phone: 06-22-2021 10:44-0400 Body height 157.48 cm Nikky S Jolliff Work Phone: [facility] Work Phone: 06-22-2021 10:44-0400 Body mass index (BMI) [Ratio] 22.13 kg/m2 Nikky S Jolliff Work Phone: [facility] Work Phone: 06-22-2021 10:44-0400 Body surface area Derived from formula 1.54 m2 Nikky S Jolliff Work Phone: [facility] Work Phone: 06-22-2021 10:44-0400 Body weight 54.89 kg Nikky Pillai Work Phone: [facility] Work Phone: 06-22-2021 10:44-0400 Diastolic blood pressure 82 mm[Hg] Nikky Pillai Work Phone: [facility] Work Phone: 06-22-2021 10:44-0400 Heart rate 80 /min Nikky Pillai Work Phone: [facility] Work Phone: 06-22-2021 10:44-0400 Respiratory rate 18 /min Nikky Pillai Work Phone: [facility] Work Phone: 06-22-2021 10:44-0400 Systolic blood pressure 121 mm[Hg] Nikky Pillai Work Phone: [facility] Work Phone: Encounters Encounter Date Encounter Type Care Provider Facility Start: 04-17-2025 ambulatory Nikky Pillai Facility: [facility] Start: 04-13-2025 End: 04-13-2025 Patient encounter procedure Tanya Blanco MD Work Phone: [facility] [employer] Comment on above: Classical migraine w ith intractable migraine (Primary Dx); 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; Episodic migraine Start: 04-13-2025 End: 04-13-2025 ambulatory [employer] [facility] Start: 04-12-2025 End: 04-12-2025 Patient encounter procedure [facility] Comment on above: Classical migraine w ith intractable migraine (Primary Dx); 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; Episodic migraine Start: 04-12-2025 End: 04-12-2025 ambulatory NIKKY [employer] [facility] Start: 04-11-2025 End: 04-11-2025 Patient encounter procedure T[facility] Blanco MD [facility] Comment on above: Classical migraine w ith intractable migraine (Primary Dx); 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; Episodic migraine Start: 04-11-2025 End: 04-11-2025 ambulatory [facility] Start: 04-06-2025 End: 04-06-2025 ambulatory Lorenzo Lr MD Work Phone: [facility] Comment on above: Classical migraine w ith intractable migraine (Primary Dx); 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 Start: 04-06-2025 End: 04-06-2025 Patient encounter procedure Iron Krishnan DOG BREEDER - PROFESSOR [employer] VO[employer] Work Phone: [facility] Comment on above: 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 (Primary Dx) Start: 04-06-2025 End: 04-06-2025 ambulatory [facility] Start: 03-31-2025 End: 03-31-2025 Refill Iron Krishnan DOG BREEDER - PROFESSOR OF VOICE Work Phone: [facility] Comment on above: Primary insomnia (Pr imary Dx) Start: 03-20-2025 End: 03-21-2025 Refill Lorenzo Lr MD Work Phone: [facility] Comment on above: 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 Start: 03-10-2025 End: 03-10-2025 ambulatory [facility] Start: 03-09-2025 End: 03-10-2025 ambulatory [facility] Start: 03-08-2025 End: 03-08-2025 Patient encounter procedure Tanya Blanco MD Work Phone: [facility] Comment on above: Episodic migraine; Classical migraine with intractable migraine; 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 Start: 03-08-2025 End: 03-08-2025 ambulatory [facility] Start: 03-07-2025 End: 03-07-2025 Refill Lorenzo Lr MD Work Phone: [facility] Comment on above: Primary insomnia Start: 03-05-2025 End: 03-07-2025 Refill Lorenzo Lr MD Work Phone: [facility] Comment on above: 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 Start: 02-18-2025 End: 02-18-2025 Office outpatient visit 25 minutes Lorenzo Lr MD Work Phone: [facility] Comment on above: Confusional arousals (Primary Dx); Sleep paralysis; 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; Primary insomnia; Obstructive sleep apnea Start: 02-18-2025 End: 02-18-2025 ambulatory NIKKY PILLAI [facility] Start: 02-03-2025 End: 02-03-2025 Patient encounter procedure Tanya Blanco MD Work Phone: [facility] [employer] [place] Comment on above: Classical migraine w ith intractable migraine; 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; Episodic migraine Start: 02-03-2025 End: [facility] Start: 02-02-[facility]25 End: 02-02-2025 Patient encounter procedure Tanya Blanco MD Work Phone: [facility] [employer] Comment on above: Classical migraine w ith intractable migraine; 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; Episodic migraine Start: 02-02-2025 End: 02-02-2025 ambulatory TANYA BOONEANOVA [facility] Start: 02-01-2025 End: 02-01-2025 Patient encounter procedure Tanya Blanco MD Work Phone: [facility] [employer] Comment on above: Classical migraine w ith intractable migraine; 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; Episodic migraine Start: 02-01-2025 End: 02-01-2025 ambulatory TANYA [facility] Start: 01-20-2025 End: 01-20-2025 ambulatory Nikky S Jolliff Facility:[facility] Start: 01-19-2025 End: 01-19-2025 Refill Lorenzo Lr MD Work Phone: [facility] Comment on above: 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 Start: 01-12-2025 End: 01-12-2025 ambulatory Lorenzo Lr MD Work Phone: [facility] Comment on above: Classical migraine w ith intractable migraine; 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; Episodic migraine Start: 12-30-2024 End: 12-30-2024 ambulatory [facility] Start: 12-29-2024 End: 12-29-2024 Patient encounter procedure Tanya Blanco MD Work Phone: [facility] [employer] Comment on above: Classical migraine w ith intractable migraine; 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; Episodic migraine Start: 12-29-2024 End: 12-29-2024 ambulatory [facility] Start: 12-28-2024 End: 12-28-2024 ambulatory [facility] Start: 12-28-2024 End: 12-28-2024 Patient encounter procedure Tanya Blanco MD Work Phone: [facility] [employer] Comment on above: Classical migraine w ith intractable migraine; 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; Episodic migraine Start: 12-24-2024 End: 12-24-2024 ambulatory Freddy Rolle Alvaro HAWTHORNE [place] Start: 12-01-2024 End: 12-01-2024 Patient encounter procedure Tanya Blanco MD Work Phone: [facility] Comment on above: Classical migraine w ith intractable migraine; 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; Episodic migraine Start: 12-01-2024 End: 12-01-2024 ambulatory [facility] Start: 11-30-2024 End: 11-30-2024 Patient encounter procedure Tanya Blanco MD Work Phone: [facility] Comment on above: Classical migraine w ith intractable migraine; 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 Start: 11-02-2024 End: 11-02-2024 Patient encounter procedure Tanya Blanco MD Work Phone: [facility] Comment on above: Episodic migraine; Classical migraine with intractable migraine; 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 Start: 11-02-2024 End: 11-02-2024 ambulatory TANYA BLANCO [facility] Start: 11-01-2024 End: 11-01-2024 Patient encounter procedure Tanya Blanco MD Work Phone: [facility] Comment on above: Episodic migraine; Classical migraine with intractable migraine; 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 Start: 11-01-2024 End: 11-01-2024 ambulatory NIKKY PILLAI [facility] Start: 10-04-2024 End: 10-04-2024 ambulatory Lorenzo Lr MD Work Phone: [facility] Comment on above: Classical migraine w ith intractable migraine; 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 Start: 10-04-2024 End: 10-04-2024 Patient encounter procedure Iron Krishnan DOG BREEDER - PROFESSOR OF VOICE Work Phone: [facility] Comment on above: 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 (Primary Dx) Primary insomnia Start: 10-04-2024 End: 10-04-2024 ambulatory [facility] Start: 10-01-2024 End: 10-01-2024 Refill Iron Krishnan DOG BREEDER - PROFESSOR OF VOICE Work Phone: [facility] Comment on above: 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 Start: 09-29-2024 End: 09-29-2024 Patient encounter procedure T[facility] Blanco MD Work Phone: [facility] Comment on above: Episodic migraine; Classical migraine with intractable migraine; 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 Start: 09-29-2024 End: 09-29-2024 ambulatory [facility] Start: 09-28-2024 End: 09-28-2024 Patient encounter procedure Tanya Blanco MD Work Phone: [facility] [employer] [place] Comment on above: Episodic migraine; Classical migraine with intractable migraine; 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 Start: 09-28-2024 End: 09-28-2024 ambulatory [facility] Start: 09-27-2024 End: 09-27-2024 Patient encounter procedure Tanya Blanco MD Work Phone: [facility] [employer] [place] Comment on above: Episodic migraine; Classical migraine with intractable migraine; 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 Start: 09-27-2024 End: 09-27-2024 ambulatory [facility] Start: 08-26-2024 End: 08-26-2024 Patient encounter procedure Tanya Blanco MD Work Phone: [facility] [employer] [place] Comment on above: Episodic migraine; Classical migraine with intractable migraine; 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 Start: 08-26-2024 End: 08-26-2024 ambulatory NIKKY PILLAI [facility] Start: 08-25-2024 End: 08-25-2024 Patient encounter procedure Tanya Blanco MD Work Phone: [facility] Comment on above: Episodic migraine; Classical migraine with intractable migraine; 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 Start: 08-25-2024 End: 08-25-2024 ambulatory TANYA BOONEANOVA [facility] Start: 08-24-2024 End: 08-24-2024 Patient encounter procedure Tanya Blanco MD Work Phone: [facility] Comment on above: Episodic migraine; Classical migraine with intractable migraine; 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 Start: 08-24-2024 End: 08-24-2024 ambulatory TANYA BLANCO [facility] Start: 08-17-2024 End: 08-17-2024 ambulatory [place] [place] Start: 08-10-2024 End: 08-10-2024 Telephone encounter Iron Ariella Jaime CNP Work Phone: [facility] Start: 07-28-2024 End: 07-28-2024 Patient encounter procedure Tanya Blanco MD Work Phone: [facility] Comment on above: Episodic migraine; Classical migraine with intractable migraine; 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 Start: 07-28-2024 End: 07-28-2024 ambulatory TANYA BLANCO [facility] Start: 07-27-2024 End: 07-27-2024 Patient encounter procedure Tanya Blanco MD Work Phone: [facility] Comment on above: Episodic migraine; Classical migraine with intractable migraine; 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 Start: 07-27-2024 End: 07-27-2024 ambulatory TANYA BLANCO [facility] Start: 07-26-2024 End: 07-26-2024 Patient encounter procedure Tanya Blanco MD Work Phone: [facility] Comment on above: Episodic migraine; Classical migraine with intractable migraine; 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 Start: 07-26-2024 End: 07-26-2024 ambulatory TANYA BLANCO [facility] Start: 07-12-2024 End: 07-12-2024 Patient encounter procedure Iron Martinlellan DOG BREEDER - PROFESSOR OF VOICE Work Phone: [facility] Comment on above: 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 (Primary Dx) Start: 07-12-2024 End: 07-12-2024 ambulatory IRON ARIELLA [facility] Start: 07-12-2024 End: 07-12-2024 ambulatory Lorenzo Lr MD Work Phone: [facility] Comment on above: Classical migraine w ith intractable migraine; 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 Start: 07-09-2024 End: 07-09-2024 Refill Iron Ariella DOG BREEDER - PROFESSOR OF VOICE Work Phone: [facility] Comment on above: Primary insomnia Start: 06-24-2024 End: 06-24-2024 Patient encounter procedure Tanya Blanco MD Work Phone: [facility] Comment on above: Episodic migraine; Classical migraine with intractable migraine; 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 Start: 06-24-2024 End: 06-24-2024 ambulatory [facility] Start: 06-23-2024 End: 06-23-2024 Patient encounter procedure Tanya Blanco MD Work Phone: [facility] Comment on above: Episodic migraine; Classical migraine with intractable migraine; 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 Start: 06-23-2024 End: 06-23-2024 ambulatory [facility] Start: 06-22-2024 End: 06-22-2024 ambulatory NIKKY [facility] Start: 06-22-2024 End: 06-22-2024 Patient encounter procedure Tanya Blanco MD Work Phone: [facility] Comment on above: Episodic migraine; Classical migraine with intractable migraine; 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 Start: 06-14-2024 End: 06-14-2024 Refog Krisnhan DOG BREEDER - PROFESSOR OF VOICE Work Phone: [facility] Comment on above: 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 Start: 05-31-2024 End: 06-01-2024 Telephone encounter Lorenzo Lr MD Work Phone: [facility] Comment on above: Appointment (Resched ule) Start: 05-12-2024 End: 05-12-2024 Patient encounter procedure Tanya Blanco MD Work Phone: [facility] Comment on above: Episodic migraine; Classical migraine with intractable migraine; 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 Start: 05-12-2024 End: 05-12-2024 ambulatory [facility] Start: 05-11-2024 End: 05-11-2024 Patient encounter procedure Tanya Blanco MD Work Phone: [facility] Comment on above: Episodic migraine; Classical migraine with intractable migraine; 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 Start: 05-11-2024 End: 05-11-2024 ambulatory [facility] Start: 05-10-2024 End: 05-10-2024 Patient encounter procedure Tanya Blanco MD Work Phone: [facility] Comment on above: Episodic migraine; Classical migraine with intractable migraine; 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 Start: 05-10-2024 End: 05-10-2024 ambulatory [facility] Start: 04-21-2024 End: 04-21-2024 Telephone encounter Lorenzo Lr MD Work Phone: [facility] Comment on above: Reschedule Procedure Start: 04-15-2024 End: 04-15-2024 Refill Iron Ariella DOG BREEDER - PROFESSOR OF VOICE Work Phone: [facility] Comment on above: Primary insomnia Start: 04-08-2024 Documentation procedure Mammography Coordinator [facility] Start: 04-08-2024 Letter encounter Mammography Coordinator [facility] Start: 04-08-2024 End: 04-08-2024 ambulatory NIKKY MORALES ROSAS Facility:[facility] Start: 04-08-2024 End: 04-08-2024 Subsequent hospital visit by physician Screen Mammo [facility] Comment on above: Encounter for screen ing mammogram for malignant neoplasm of breast [Z12.31] Start: 04-07-2024 End: 04-08-2024 Refill Lorenzo Lr MD Work Phone: [facility] Comment on above: 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 Start: 04-05-2024 End: 04-05-2024 ambulatory Lorenzo Lr MD Work Phone: [facility] Comment on above: Classical migraine w ith intractable migraine; 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 Start: 04-05-2024 Telephone encounter Isidro Deleon RN [facility] Comment on above: Letter for School/Wo rk Start: 03-25-2024 End: 03-25-2024 Patient encounter procedure Tanya Blanco MD Work Phone: [facility] Comment on above: Episodic migraine; Classical migraine with intractable migraine; 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 Start: 03-24-2024 End: 03-24-2024 Patient encounter procedure Tanya Blanco MD Work Phone: [facility] Comment on above: Episodic migraine; Classical migraine with intractable migraine; 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 Start: 03-23-2024 End: 03-23-2024 Patient encounter procedure Tanya Blanco MD Work Phone: [facility] Comment on above: Episodic migraine; Classical migraine with intractable migraine; 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 Start: 03-16-2024 Refill Lorenzo Lr MD Work Phone: [facility] Comment on above: 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 Start: 02-06-2024 End: 02-06-2024 Patient encounter procedure Lorenzo Lr MD Work Phone: [facility] Comment on above: 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 (Primary Dx); Primary insomnia Start: 02-04-2024 End: 02-04-2024 Patient encounter procedure Tanya Blanco MD Work Phone: [facility] Comment on above: Episodic migraine; Classical migraine with intractable migraine; 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 Start: 02-02-2024 End: 02-02-2024 Patient encounter procedure Tanya Blanco MD Work Phone: [facility] Comment on above: Episodic migraine; Classical migraine with intractable migraine; 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 Start: 01-27-2024 Refill Lorenzo Lr MD Work Phone: [facility] Comment on above: 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 Start: 01-15-2024 Refill Iron duvall DOG BREEDER - PROFESSOR OF VOICE Work Phone: [facility] Comment on above: Primary insomnia Start: 01-05-2024 End: 01-05-2024 ambulatory Lorenzo Lr MD Work Phone: [facility] Comment on above: Classical migraine w ith intractable migraine; 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 Start: 01-03-2024 Refill Lorenzo Lr MD Work Phone: [facility] Comment on above: 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 Start: 12-31-2023 End: 12-31-2023 Patient encounter procedure Tanya Blanco MD Work Phone: [facility] Comment on above: Episodic migraine; Classical migraine with intractable migraine; 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 Start: 12-30-2023 End: 12-30-2023 Patient encounter procedure Tanya Blanco MD Work Phone: [facility] Comment on above: Episodic migraine; Classical migraine with intractable migraine; 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 Start: 12-29-2023 End: 12-29-2023 Patient encounter procedure Tanya Blanco MD Work Phone: [facility] Comment on above: Episodic migraine; Classical migraine with intractable migraine; 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 Start: 12-23-2023 Telephone encounter Lorenzo genao MD Work Phone: [facility] Comment on above: Medication Problem Start: 12-11-2023 End: 12-11-2023 ambulatory NIKKY MORALES [facility] Facility:[facility] Start: 12-11-2023 End: 12-11-2023 Patient encounter procedure Ant Xavier MD Work Phone: OB/Gynecology Comment on above: Encounter for gyneco logical examination (general) (routine) without abnormal findings (Primary Dx); Encounter for screening mammogram for breast cancer; Vaginal atrophy; Vaginal dryness Start: 12-11-2023 End: 12-11-2023 Patient encounter status Ant Xavier MD Work Phone: [facility] Start: 12-03-2023 End: 12-03-2023 Patient encounter procedure Tanya Blanco MD Work Phone: [facility] Comment on above: 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; Episodic migraine; Classical migraine with intractable migraine Start: 12-02-2023 End: 12-02-2023 Patient encounter procedure Tanya Blanco MD Work Phone: [facility] Comment on above: 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; Episodic migraine; Classical migraine with intractable migraine Start: 12-01-2023 End: 12-02-2023 Patient encounter procedure Tanya Blanco MD Work Phone: [facility] Comment on above: 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; Episodic migraine; Classical migraine with intractable migraine Start: 11-27-2023 Refill Lorenzo Lr MD Work Phone: [facility] Comment on above: 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 Start: 11-12-2023 End: 11-12-2023 Patient encounter procedure Lorenzo Lr MD Work Phone: [facility] Comment on above: 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 (Primary Dx) Start: 11-05-2023 End: 11-05-2023 Patient encounter procedure Tanya Blanco MD Work Phone: [facility] Comment on above: Poor venous access; Other mechanical complication of unspecified cardiac and vascular devices and implants, initial encounter; 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; Episodic migraine; Classical migraine with intractable migraine Start: 11-04-2023 End: 11-04-2023 Patient encounter procedure Tanya Blanco MD Work Phone: [facility] Comment on above: 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; Episodic migraine; Classical migraine with intractable migraine; Poor venous access; Other mechanical complication of unspecified cardiac and vascular devices and implants, initial encounter Start: 11-03-2023 End: 11-03-2023 Patient encounter procedure Tanya Blanco MD Work Phone: [facility] Comment on above: 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; Episodic migraine; Classical migraine with intractable migraine Start: 10-16-2023 Refill Iron duvall DOG BREEDER - PROFESSOR OF VOICE Work Phone: [facility] Comment on above: Primary insomnia Start: 10-10-2023 End: 10-10-2023 Patient encounter procedure Lindsey Duncan DOG BREEDER - PROFESSOR OF VOICE Work Phone: [facility] Comment on above: 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; Episodic migraine; Classical migraine with intractable migraine Start: 10-09-2023 End: 10-09-2023 Patient encounter procedure Tanya Blanco MD Work Phone: [facility] Comment on above: 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; Episodic migraine; Classical migraine with intractable migraine Start: 10-08-2023 End: 10-08-2023 Patient encounter procedure Tanya Blanco MD Work Phone: [facility] Comment on above: 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; Episodic migraine; Classical migraine with intractable migraine Start: 10-06-2023 End: 10-06-2023 ambulatory Lorenzo Lr MD Work Phone: [facility] Comment on above: 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; Classical migraine with intractable migraine Start: 09-09-2023 End: 09-09-2023 Patient encounter procedure Tanya Blanco MD Work Phone: [facility] Comment on above: 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 Start: 09-08-2023 End: 09-08-2023 Patient encounter procedure Tanya Blacno MD Work Phone: [facility] Comment on above: 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 Start: 08-15-2023 End: 08-15-2023 Office outpatient visit 10 minutes Iron Krishnan DOG BREEDER - PROFESSOR OF VOICE Work Phone: [facility] Comment on above: 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 (Primary Dx) Start: 08-07-2023 End: 08-07-2023 Patient encounter procedure Tanya Blanco MD Work Phone: [facility] Comment on above: 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 Nikky Pillai Work Phone: [facility] Work Phone: Start: 06-03-2023 End: 06-03-[address] 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 Nikky Pillai Work Phone: [facility] Work Phone: Start: 05-02-2023 Telephone encounter Lorenzo genao MD Work Phone: [facility] Start: 05-01-2023 Refill Lorenzo Lr MD Work Phone: [facility] Start: 04-24-2023 Telephone encounter Adam Carrasco PharmD [facility] Start: 04-08-2023 End: 04-08-2023 Patient encounter procedure Lorenzo Lr MD Work Phone: [facility] Comment on above: 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 (Primary Dx); Primary insomnia Start: 04-04-2023 Orders Only Venu Hinds Work Phone: [facility] Comment on above: 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) (Primary Dx) Start: 04-01-2023 End: 04-01-2023 ambulatory Lorenzo Lr MD Work Phone: [facility] Comment on above: Classical migraine w ith intractable migraine Start: 03-26-2023 End: 03-26-2023 Subsequent hospital visit by physician Venu Mccall MD Work Phone: [facility] [address] [facility] Comment on above: Syncope and collapse ; Autonomic dysfunction Start: 03-24-2023 Telephone encounter Maribeth Arauzlynne AMADO [facility] Comment on above: EMU (Reminder call) Start: 03-23-2023 Refill Lorenzo Lr MD Work Phone: [facility] Comment on above: Primary insomnia Start: 02-13-2023 End: 02-13-[address] Nikky Pillai Work Phone: [facility] Work Phone: Start: 02-05-2023 Telephone encounter Venu Judd si, MD Work Phone: [facility] Comment on above: Procedure Start: 02-03-2023 End: 02-03-2023 Office outpatient visit 40 minutes Venu Mccall MD Work Phone: [facility] Comment on above: Syncope and collapse ; Autonomic dysfunction Start: 01-30-2023 Telephone encounter Lorenzo genao MD Work Phone: [facility] Comment on above: schedule infusions Start: 01-27-2023 End: 01-27-2023 Office outpatient visit 40 minutes Lorenzo Lr MD Work Phone: [facility] Comment on above: Syncope and collapse (Primary Dx); 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; Primary insomnia; Autonomic dysfunction Start: 01-12-2023 Documentation procedure Mammography Coordinator [facility] Start: 01-12-2023 Letter encounter Mammography Coordinator [facility] Start: 01-10-2023 End: 01-10-2023 Subsequent hospital visit by physician Screen Mammo [facility] Mammogram Comment on above: Visit for screening mammogram [Z12.31] Start: 01-02-2023 End: 01-02-2023 ambulatory Lorenzo Lr MD Work Phone: [facility] Comment on above: Classical migraine w ith intractable migraine Start: 01-01-2023 Telephone encounter Lorenzo genao MD Work Phone: [facility] Neuroscience Comment on above: Orders Start: 12-21-2022 Non-patient / Non-visit Dr. Nikky Pillai Work Phone: [facility] Inpatient Physicians Start: 12-20-2022 Non-patient / Non-visit Dr. Nikky Pillai Work Phone: [facility] Inpatient Physicians Start: 12-20-2022 Non-patient / Non-visit Dr. Nikky Pillai Work Phone: [facility] Start: 12-19-2022 Non-patient / Non-visit Dr. Nikky Pillai Work Phone: [facility] Start: 12-19-2022 Non-patient / Non-visit Dr. Nikky Pillai Work Phone: [facility] Inpatient Physicians Start: 12-18-2022 Non-patient / Non-visit Dr. Nikky Pillai Work Phone: [facility] Inpatient Physicians Start: 12-18-2022 End: 12-21-2022 Evaluation and management of inpatient Dr. Nik[facility] Pillai [facility] Start: 12-18-[address] Nikky Pillai Work Phone: [facility] Work Phone: Start: 12-18-2022 End: 12-18-[address] Nikky Pillai Work Phone: [facility] Work Phone: Start: 12-18-2022 End: 12-18-[address] Nikky Pillai Work Phone: [facility]-Radiology, [facility] Start: 12-12-2022 End: 12-12-2022 Emergency department patient visit Dr. 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 Nikky Pillai Work Phone: [facility] Gastroenterology Start: 10-28-2022 Orders Only Ant Hinds Work Phone: [address] [place] [address] Comment on above: Visit for screening mammogram (Primary Dx) Start: 08-21-2022 End: 08-21-[address] Nikky Pillai Work Phone: [facility] Gastroenterology Start: 08-18-2022 End: 08-18-2022 Emergency department patient visit Dr. Nikky Pillai Work Phone: [facility]-Emergency Department Start: 04-16-2022 End: 04-16-2022 Emergency department patient visit Dr. Nikky Pillai Work Phone: [facility]-Emergency Department Start: 03-16-2022 End: 03-16-[address] Nikky Pillai Work Phone: [facility] Start: 03-12-2022 Non-patient / Non-visit Dr. Nikky Pillai Work Phone: [facility] Start: 03-12-2022 End: 03-12-[address] Nikky Pillai Work Phone: [facility]-Cardiovascular Services Start: 03-08-2022 End: 03-08-[address] Nikky Pillai Work Phone: [facility] Start: 03-07-2022 End: 03-07-[address] Nikky Pillai Work Phone: [facility] Gastroenterology Start: 02-28-2022 Non-patient / Non-visit Dr. Nikky Pillai Work Phone: [facility] Start: 02-26-2022 Rx Renewal Nikky Pillai Work Phone: [facility]-Uncdlvqtdj-Ppxhvo 12th [place] Work Phone: Start: 02-21-2022 Non-patient / Non-visit Dr. Nikky Pillai Work Phone: [facility] Start: 02-21-2022 End: 02-21-2022 Admission to same day surgery center Dr. Nikky Pillai Work Phone: [facility]-Endoscopy Start: 02-20-2022 End: 02-20-[address] Nikky Pillai Work Phone: [facility] Start: 02-07-2022 End: 02-07-[address] Nikky Pillai Work Phone: [facility]-Nuclear Medicine, [facility] Start: 01-07-2022 Office outpatient visit 25 minutes Nikky Pillai Work Phone: [facility]-Vmlumphhfn-Tudhtp [address] [place] Work Phone: Start: 01-07-2022 Patient encounter procedure Nikky Pillai Work Phone: MQ-Lrnthnukgl-Nuxdms [address] [place] Work Phone: Start: 12-24-2021 End: 12-24-[address] Nikky Pillai Work Phone: [facility] Gastroenterology Start: 12-17-2021 Office outpatient visit 25 minutes Nikky Pillai Work Phone: FP-Armqwisdn-Hzkgz 204 Work Phone: Start: 11-13-2021 Current tobacco non-user cad cap copd pv dm Nikky Pillai Work Phone: KN-Wlcviygdki-Oqhkwg [address] [place] Work Phone: Start: 10-18-2021 AUDIT Nikky Pillai Work Phone: UD-Xpayeuckh-Gtodgi 170 DO Work Phone: Start: 09-10-2021 Office consultation new/estab patient 80 min Nikky Pillai Work Phone: UO-Kfixblcpt-Vgxrf 204 Work Phone: Start: 06-22-2021 Office outpatient ne w 60 minutes Nikky Pillai Work Phone: [facility] Work Phone: Procedures Date Procedure Procedure Detail Performing Clinician Start: 04-08-2024 End: 04-08-2024 Screening digital breast tomosynthesis bi Ant Xavier MD Work Phone: Start: 08-05-2023 Plain chest X-ray Dr. Nikky Pillai Work Phone: Start: 06-03-2023 [address] emptying study Dr[address] Nikky Pillai Work Phone: Start: 01-10-2023 End: 01-10-2023 Mammography Ant Xavier MD Work Phone: Start: 12-20-[address] Nikky ward Work Phone: Start: 12-19-2022 End: 12-19-2022 Plain X-ray abdomen Dr. Nikky Pillai Work Phone: Start: 12-19-[address] Nikky Pillai Work Phone: Start: 12-18-[address] Nikky ward Work Phone: Start: 12-18-2022 Diagnostic radiography of abdomen Dr. Sun Pillai Work Phone: Start: 12-12-2022 Computed tomography of abdomen and pelvis with contrast Dr. Nikky Pillai Work Phone: Start: 12-02-2022 DRUG MONITOR PANEL 5 SCREEN URINE (QUEST) Lorenzo Lr MD Work Phone: Start: 08-18-2022 CT of abdomen and pelvis without contrast Dr. Nikky Pillai Work Phone: Start: 02-21-[address] Nikky ward Work Phone: Start: 02-20-2022 End: 02-20-[address] Nikky Pillai Work Phone: Start: 02-07-2022 [address] gastric emptying study Dr. Nikky Pillai Work Phone: Start: 12-13-2021 Mammography Ant Xavier MD Work Phone: Cholecystectomy Nikky S Alberto f Work Phone: Extraction of wisdom tooth A my S Jolliff Work Phone: Kidney Surgery Nikky S Jolliff Work Phone: Nerve excision Nikky S Jolliff Work Phone: Oophorectomy Nikky S Jolliff Work Phone: Other bilateral liga tion and division of fallopian tubes Nikky S Jolliff Work Phone: Renal lithotripsy Nikky S Judi iff Work Phone: Shoulder Surgery Nikky Mckee ff Work Phone: Urine culture Dr. Nikky lauren Work Phone: Viral antigen assay Dr. Nikky Pillai Work Phone: Plan of Treatment Date Care Activity Detail Author Start: 2050 RSV Immunization for Adults (1 - 1-dose 75+ series) RSV Immunization for Adults (1 - 1-dose 75+ series) [facility] Start: 2035 RSV Immunization aged 60 or older (1 - 1-dose 60+ series) RSV Immunization aged 60 or older (1 - 1-dose 60+ series) [facility] Start: 03-26-2026 Diabetes Screening Diabetes Screening [facility] Start: 11-15-2025 HPV TESTING HPV TESTING [facility] Start: 11-15-2025 PAP TESTING PAP TESTING [facility] Start: 11-15-2025 Screening for malignant neoplasm of cervix [facility] Start: 10-05-2025 End: 10-05-2025 Patient encounter procedure 10/05/2025 7:30 AM EST Procedure Visit [address] [place] [address] [place] [address] [facility] Start: 10-04-2025 End: 10-04-2025 Patient encounter procedure 10/04/2025 7:30 AM EST Procedure Visit [facility] [address] [place] [address] [place] [address] [facility] Start: 10-03-2025 End: 10-03-2025 Patient encounter procedure 10/03/2025 7:30 AM EST Procedure Visit [facility] [address] [place] [address] [place] [address] [facility] Start: 09-07-2025 End: 09-07-2025 Patient encounter procedure 09/07/2025 7:30 AM EST Procedure Visit [facility] [address] [place] [address] [place] [address] [facility] Start: 09-06-2025 End: 09-06-2025 Patient encounter procedure 09/06/2025 7:30 AM EST Procedure Visit [facility] Neurology - [place] [address] [place] [id number] [facility] Neurology - [place] Start: 09-05-2025 End: 09-05-2025 Patient encounter procedure 09/05/2025 7:30 AM EST [facility] Neurology - [place] [address] [facility] [place] [address] [facility] Neurology - [place] Start: 08-10-2025 End: 08-10-2025 Patient encounter procedure 08/10/2025 7:30 AM EDT Procedure Visit [facility] Neurology - [place] [address] [place] [address] [place] [address] [facility] Neurology - [place] Start: 08-09-2025 End: 08-09-2025 Patient encounter procedure 08/09/2025 7:30 AM EDT Procedure Visit [facility] Neurology - [place] [address] [place] [address] [place] [address] [facility] Neurology - [place] Start: 08-08-2025 End: 08-08-2025 Patient encounter procedure 08/08/2025 7:30 AM EDT Procedure Visit [facility] Neurology - [place] [address] [place] [address] [place] [address] [facility] Neurology - [place] Start: 07-13-2025 End: 07-13-2025 ambulatory 07/13/2025 7:30 AM EDT Infusion [facility] Health Neurology - [place] [address] [place] [address] [facility] Health Neurology - [place] Start: 07-12-2025 End: 07-12-2025 ambulatory 07/12/2025 7:30 AM EDT Infusion [facility] Neurology - [place] [address] [place] [address] [facility] Neurology - [place] Start: 07-11-2025 End: 07-11-2025 ambulatory 07/11/2025 7:30 AM EDT Infusion [facility] [address] [place] [address] [place] [address] [facility] Start: 07-01-2025 End: 07-01-2025 Patient encounter procedure 07/01/2025 2:30 PM EDT Procedure Visit [facility] [address] [place] [address] Iron Krishnan, CHAD - PROFESSOR OF VOICE [address] [place] [address] [facility] Start: 07-01-2025 End: 07-01-2025 ambulatory 07/01/2025 1:00 PM EDT Infusion [facility] [address] [place] [address] Lorenzo Lr MD [address] [place] [address] [facility] Start: 06-20-2025 Influenza vaccination Influenza Vaccine (Season Ended) [facility] Start: 06-14-2025 End: 06-14-2025 Patient encounter procedure 06/14/2025 9:00 AM EDT Office Visit [facility] [address] [facility] [address] [place] [address] Lorenzo Lr MD [address] [facility] [address] [place] [address] [facility] Start: 06-01-2025 End: 06-01-2025 Patient encounter procedure 06/01/2025 7:30 AM EDT Procedure Visit [facility] [address] [place] [address] [place] [phone] [facility] Start: 05-31-2025 End: 05-31-2025 Patient encounter procedure 05/31/2025 7:30 AM EDT Procedure Visit [address] [place] [address] [place] [address] [facility] Start: 05-30-2025 End: 05-30-2025 Patient encounter procedure 05/30/2025 7:30 AM EDT Procedure Visit [address] [place] [address] [place] [address] [facility] Start: 2025 Zoster Vaccines (1 of 2) Zoster Vaccines (1 of 2) [facility] Start: 05-10-2025 End: 05-10-2025 Patient encounter procedure 05/10/2025 7:30 AM EDT Procedure Visit [address] [place] [address] [place] [address] [facility] Start: 05-09-2025 End: 05-09-2025 Patient encounter procedure 05/09/2025 7:30 AM EDT Procedure Visit [address] [place] [address] [facility] Start: 04-27-2025 End: 04-27-2025 Clinical Support 04/27/2025 8:30 PM EDT Clinical Support [facility] [address] [place] [address] Lorenzo Lr MD [address] [facility] [address] [place] [address] [facility] Start: 04-20-2025 End: 04-20-2025 Patient encounter procedure 04/20/2025 7:30 AM EDT Procedure Visit [address] [place] [address] [place] [address] [facility] Start: 04-19-2025 End: 04-19-2025 Patient encounter procedure 04/19/2025 7:30 AM EDT Procedure Visit [facility] Neurology - [place] [address] [place] [address] [place] [address] [facility] Neurology - [place] Start: 04-18-2025 End: 04-18-2025 Patient encounter procedure 04/18/2025 7:30 AM EDT Procedure Visit [facility] Neurology [place] [address] [place] [address] [place] [address] [facility] Neurology - [place] Start: 04-13-2025 End: 04-13-2025 Patient encounter procedure 04/13/2025 7:30 AM EDT Procedure Visit [facility] Neurology - [place] [address] [place] [address] [place] [address] [facility]rology - [place] Start: 04-12-2025 End: 04-12-2025 Patient encounter procedure 04/12/2025 7:30 AM EDT Procedure Visit [facility] Neurology - [place] [address] [place] [address] [place] [address] [facility] Neurology - [place] Start: 04-11-2025 End: 04-11-2025 Patient encounter procedure 04/11/2025 7:30 AM EDT Procedure Visit [facility] Neurology - [place] [address] [place] [address] [place] [address] [facility]rology - [place] Start: 04-08-2025 Screening for malignant neoplasm of breast [facility] Start: 04-06-2025 End: 04-06-2025 ambulatory 04/06/2025 10:30 AM EDT Infusion [facility] [address] [place] [phone] Lorenzo Lr MD [address] [facility] [address] [place] [address] [facility] Start: 04-06-2025 End: 04-06-2025 Patient encounter procedure [facility] Start: 04-02-2025 End: 04-02-2025 Clinical Support 04/02/2025 8:30 PM EDT Clinical Support [facility] [address] [place] [phone] Lorenzo Lr MD [address] [address] [facility] Start: 03-15-2025 End: 03-15-2025 Clinical Support 03/15/2025 8:30 PM EDT Clinical Support [facility] [address] [place] [address] Lorenzo Lr MD [address] [address] [facility] Start: 03-10-2025 End: 03-10-2025 Patient encounter procedure 03/10/2025 7:30 AM EDT Procedure Visit [facility] Neurology - [place] [address] [place] [address] [place] [address] [facility] Neurology - [place] Start: 03-09-2025 End: 03-09-2025 Patient encounter procedure 03/09/2025 7:30 AM EDT Procedure Visit [facility] Neurology - [place] [address] [place] [address] [place] [address] [facility] Neurology - [place] Start: 03-08-2025 End: 03-08-2025 Patient encounter procedure 03/08/2025 7:30 AM EDT Procedure Visit [facility] Neurology - [place] [address] [place] [address] [place] [address] [facility] Neurology - [place] Start: 02-18-2025 End: 02-18-2026 Polysomnography [facility] Routine Confusional arousals Sleep paralysis Obstructive sleep apnea Expected: 02/18/2025 (Approximate), Expires: 02/18/2026 [facility] Work Phone: Comment on above: Expected: 02/18/2025 (Approximate), Expi res: 02/18/2026 Start: 02-18-2025 End: 02-18-2025 Patient encounter procedure 02/18/2025 8:00 AM EDT Office Visit [facility] [address] [place] [address] Lorenzo Lr MD [address] [place] [address] [facility] Start: 02-03-2025 End: 02-03-2025 Patient encounter procedure 02/03/2025 7:30 AM EDT Procedure Visit [facility] Neurology - [place] [address] [place] [address] [place] [address] [facility] - [place] Start: 02-02-2025 End: 02-02-2025 Patient encounter procedure 02/02/2025 7:45 AM EDT Procedure Visit [facility] Neurology - [place] [address] [place] [address] [place] [address] [facility] - [place] Start: 02-01-2025 End: 02-01-2025 Patient encounter procedure 02/01/2025 7:30 AM EDT Procedure Visit [facility] Neurology - [place] [address] [place] [address] [place] [address] [facility] Neurology - [place] Start: 01-27-2025 End: 01-27-2025 Patient encounter procedure 01/27/2025 7:30 AM EDT Procedure Visit [facility] Neurology - [place] [address] [facility] [place] [address] [facility] Neurology - [place] Start: 01-26-2025 End: 01-26-2025 Patient encounter procedure 01/26/2025 7:45 AM EDT Procedure Visit [facility] Neurology - [place] [address] [place] [address] [place] [address] [facility] [place] Start: 01-25-2025 End: 01-25-2025 Patient encounter procedure 01/25/2025 7:30 AM EDT Procedure Visit [facility] Neurology [place] [address] [facility] [place] [address] [facility] - [place] Start: 01-20-2025 End: 01-20-2025 Patient encounter procedure 01/20/2025 7:45 AM EDT Procedure Visit [facility] [address] [place] [address] [place] [address] [facility] Neurology [facility] Start: 01-19-2025 End: 01-19-2025 Patient encounter procedure 01/19/2025 7:30 AM EDT Procedure Visit [facility] [address] [place] [address] [place] [address] [facility] Neurology [facility] Start: 01-18-2025 End: 01-18-2025 Patient encounter procedure 01/18/2025 7:30 AM EDT Procedure Visit [facility] [address] [place] [address] [place] [address] [facility] Start: 01-13-2025 End: 01-13-2025 Patient encounter procedure 01/13/2025 9:00 AM EDT Office Visit OB/Gynecology [address] [facility] [place] [address] Ant Xavier MD [address] [facility] [place] [address] ANNUAL OB/Gynecology Comment on above: ANNUAL Start: 01-12-2025 End: 01-12-2025 ambulatory 01/12/2025 10:30 AM EDT Infusion [facility] [address] [place] [phone] Lorenzo Lr MD [address] [facility] [address] [place] [address] [facility] Start: 01-04-2025 End: 01-04-2025 ambulatory 01/04/2025 1:00 PM EDT Infusion [facility] [address] [place] [address] Lorenzo Lr MD [address] [facility] [address] [place] [address] [facility] Start: 01-04-2025 End: 01-04-2025 Patient encounter procedure 01/04/2025 10:00 AM EDT Procedure Visit [facility] [address] [facility] [address] [place] [phone] Iron Krishnan APRN - CNP [address] [facility] [address] [place] [address] [facility] Start: 12-30-2024 End: 12-30-2024 Patient encounter procedure 12/30/2024 7:30 AM EDT Procedure Visit [facility] Neurology [address] [place] [address] [place] [address] [facility] Neurology [facility] Start: 12-29-2024 End: 12-29-2024 Patient encounter procedure 12/29/2024 7:30 AM EDT Procedure Visit [facility] [place] [address] [place] [address] [facility] Neurology [facility] Start: 12-28-2024 End: 12-28-2024 ambulatory 12/28/2024 3:00 PM EDT Infusion [facility] [address] [place] [phone] Lorenzo Lr MD [address] [facility] [address] [place] [address] [facility] Start: 12-28-2024 End: 12-28-2024 Patient encounter procedure [facility] Neurology [facility] Start: 12-01-2024 End: 12-01-2024 Patient encounter procedure 12/01/2024 7:30 AM EST Procedure Visit [facility] Neurology [facility] [address] [place] [address] [place] [address] [facility] Start: 11-30-2024 End: 11-30-2024 Patient encounter procedure 11/30/2024 7:30 AM EST Procedure Visit [facility] Neurology [facility] [address] [place] [address] [place] [address] [facility] Start: 11-29-2024 End: 11-29-2024 Patient encounter procedure 11/29/2024 7:30 AM EST Procedure Visit [address] [place] [address] [place] [address] [facility] Start: 11-03-2024 End: 11-03-2024 Patient encounter procedure 11/03/2024 7:30 AM EST Procedure Visit [facility] [address] [place] [address] [place] [address] [facility] Start: 11-02-2024 End: 11-02-2024 Patient encounter procedure 11/02/2024 7:30 AM EST Procedure Visit [facility] [address] [place] [address] [place] [address] [facility] Start: 11-01-2024 End: 11-01-2024 Patient encounter procedure 11/01/2024 7:30 AM EST Procedure Visit [facility] Neurology [facility] [address] [place] [address] [place] [address] [facility] Start: 10-04-2024 End: 10-04-2024 ambulatory 10/04/2024 10:30 AM EST Infusion [facility] [address] [place] [phone] Lorenzo Lr MD [address] [place] [address] [facility] Start: 10-04-2024 End: 10-04-2024 Patient encounter procedure 10/04/2024 9:30 AM EST [facility] [facility] [address] [place] [phone] Iron Krisnhan APRN - CHARO [address] [place] [address] [facility] Start: 09-29-2024 End: 09-29-2024 Patient encounter procedure [facility] Start: 09-28-2024 End: 09-28-2024 Patient encounter procedure [facility] Start: 09-27-2024 End: 09-27-2024 Patient encounter procedure [facility] Start: 09-08-2024 End: 09-08-2024 Patient encounter procedure 09/08/2024 10:30 AM EST Procedure Visit [facility] [address] [facility] [address] [place] [phone] Lorenzo Lr MD [address] [place] [address] [facility] Start: 08-26-2024 End: 08-26-2024 Patient encounter procedure [facility] Start: 08-25-2024 End: 08-25-2024 Patient encounter procedure [facility] Start: 08-24-2024 End: 08-24-2024 Patient encounter procedure [facility] Start: 08-06-2024 End: 08-06-2024 Patient encounter procedure [facility] Start: 07-28-2024 End: 07-28-2024 Patient encounter procedure [facility] Start: 07-27-2024 End: 07-27-2024 Patient encounter procedure [facility] Start: 07-26-2024 End: 07-26-2024 Patient encounter procedure [facility] Start: 07-12-2024 End: 07-12-2024 Patient encounter procedure [facility] Start: 07-12-2024 End: 07-12-2024 ambulatory 07/12/2024 11:30 AM EDT Infusion [facility] [address] [place] [address] Lorenzo Lr MD [address] [facility] [address] [place] [address] [facility] Start: 07-05-2024 End: 07-05-2024 ambulatory 07/05/2024 11:30 AM EDT Infusion [facility] [address] [place] [phone] Lorenzo Lr MD [address] [facility] [address] [place] [address] [facility] Start: 06-24-2024 End: 06-24-2024 Patient encounter procedure 06/24/2024 7:30 AM EDT Procedure Visit [facility] [address] [facility] [place] [address] [place] [address] [facility] Start: 06-23-2024 End: 06-23-2024 Patient encounter procedure 06/23/2024 7:30 AM EDT Procedure Visit [facility] [address] [place] [address] [place] [address] [facility] Start: 06-22-2024 End: 06-22-2024 Patient encounter procedure 06/22/2024 2:30 PM EDT Procedure Visit [facility] [address] [facility] [address] [place] [phone] Iron Krishnan APRN - CNP [address] [facility] [address] [place] [address] [facility] Start: 06-22-2024 End: 06-22-2024 Patient encounter procedure 06/22/2024 7:30 AM EDT Procedure Visit [facility] [address] [place] [address] [place] [address] [facility] Start: 06-20-2024 COVID-19 Vaccine () COVID-19 Vaccine () [facility] Start: 06-20-2024 COVID-19 Vaccine () COVID-19 Vaccine () [facility] Start: 06-20-2024 Influenza vaccination [facility] Start: 06-16-2024 End: 06-16-2024 Patient encounter procedure 06/16/2024 11:30 AM EDT Procedure Visit [facility] [address] [facility] [address] [place] [address] Lorenzo Lr MD [address] [facility] [address] [place] [address] [facility] Start: 06-07-2024 End: 06-07-2024 Patient encounter procedure 06/07/2024 12:30 PM EDT Procedure Visit [facility] [address] [facility] [address] [place] [address] Iron Krishnan APRN - CNP [address] [facility] [address] [place] [address] [facility] Start: 05-12-2024 End: 05-12-2024 Patient encounter procedure 05/12/2024 7:30 AM EDT Procedure Visit [facility] [address] [facility] [place] [address] [place] [address] [facility] Start: 05-11-2024 End: 05-11-2024 Patient encounter procedure 05/11/2024 7:30 AM EDT Procedure Visit [facility] [address] [facility] [place] [address] [place] [address] [facility] Start: 05-10-2024 End: 05-10-2024 Patient encounter procedure 05/10/2024 7:30 AM EDT Procedure Visit [facility] [address] [facility] [place] [address] [place] [address] [facility] Start: 05-07-2024 End: 05-07-2024 Patient encounter procedure 05/07/2024 9:30 AM EDT Procedure Visit [facility] [address] [place] [phone] Lorenzo Lr MD [address] [facility] [address] [place] [address] [facility] Start: 04-14-2024 End: 04-14-2024 Patient encounter procedure 04/14/2024 7:30 AM EDT Procedure Visit [facility] [address] [facility] [place] [address] [place] [address] [facility] Start: 04-13-2024 End: 04-13-2024 Patient encounter procedure 04/13/2024 7:30 AM EDT Procedure Visit [facility] [address] [facility] [place] [address] [place] [address] [facility] Start: 04-12-2024 End: 04-12-2024 Patient encounter procedure 04/12/2024 7:30 AM EDT Procedure Visit [facility] [address] [facility] [place] [address] [place] [address] [facility] Start: 04-05-2024 End: 04-05-2024 ambulatory 04/05/2024 2:00 PM EDT Infusion [facility] [address] [place] [phone] Lorenzo Lr MD [address] [place] [address] [facility] Start: 03-29-2024 End: 03-29-2024 ambulatory 03/29/2024 2:00 PM EDT Infusion [facility] [address] [place] [address] Lorenzo Lr MD [address] [facility] [address] [place] [address] [facility] Start: 03-25-2024 End: 03-25-2024 Patient encounter procedure 03/25/2024 7:30 AM EDT Procedure Visit [facility] [address] [place] [address] [place] [address] [facility] Start: 03-24-2024 End: 03-24-2024 Patient encounter procedure 03/24/2024 7:30 AM EDT Procedure Visit [facility] [address] [facility] [place] [address] [place] [address] [facility] Start: 03-23-2024 End: 03-23-2024 Patient encounter procedure 03/23/2024 7:30 AM EDT Procedure Visit [facility] [address] [place] [address] [place] [address] [facility] Start: 03-04-2024 End: 03-04-2024 Patient encounter procedure 03/04/2024 7:30 AM EDT Procedure Visit [facility] [address] [facility] [place] [address] [place] [address] [facility] Start: 03-03-2024 End: 03-03-2024 Patient encounter procedure 03/03/2024 7:30 AM EDT Procedure Visit [facility] [address] [facility] [place] [address] [place] [address] [facility] Start: 03-02-2024 End: 03-02-2024 Patient encounter procedure 03/02/2024 7:30 AM EDT Procedure Visit [facility] [address] [facility] [place] [address] [place] [address] [facility] Start: 02-06-2024 End: 02-06-2024 Patient encounter procedure 02/06/2024 9:30 AM EDT Procedure Visit [facility] [address] [facility] [address] [place] [address] Lorenzo Lr MD [address] [facility] [address] [place] [address] [facility] Start: 02-04-2024 End: 02-04-2024 Patient encounter procedure 02/04/2024 7:30 AM EDT Procedure Visit [facility] [address] [place] [address] [place] [address] [facility] Start: 02-03-2024 End: 02-03-2024 Patient encounter procedure 02/03/2024 7:30 AM EDT Procedure Visit [facility] [address] [place] [address] [place] [address] [facility] Start: 02-02-2024 End: 02-02-2024 Patient encounter procedure 02/02/2024 7:30 AM EDT Procedure Visit [facility] [address] [place] [address] [place] [address] [facility] Start: 01-11-2024 Mammography [facility] Start: 01-11-2024 Screening for malignant neoplasm of breast Mammogram Screening [facility] Start: 01-05-2024 End: 01-05-2024 ambulatory 01/05/2024 2:00 PM EDT Infusion [facility] [address] [place] [phone] Lorenzo Lr MD [address] [facility] [address] [place] [address] [facility] Start: 12-31-2023 End: 12-31-2023 Patient encounter procedure 12/31/2023 7:30 AM EDT Procedure Visit [facility] [address] [facility] [place] [address] [place] [address] [facility] Start: 12-30-2023 End: 12-30-2023 Patient encounter procedure 12/30/2023 7:30 AM EDT Procedure Visit [facility] [address] [facility] [place] [address] [place] [address] [facility] Start: 12-29-2023 End: 12-29-2023 Patient encounter procedure 12/29/2023 7:30 AM EDT Procedure Visit [facility] [address] [facility] [place] [address] [place] [address] [facility] Start: 12-03-2023 End: 12-03-2023 Patient encounter procedure 12/03/2023 7:30 AM EST Procedure Visit [facility] [address] [facility] [place] [address] [place] [address] [facility] Start: 12-02-2023 End: 12-02-2023 Patient encounter procedure 12/02/2023 7:30 AM EST Procedure Visit [facility] [address] [facility] [place] [address] [place] [address] [facility] Start: 12-01-2023 End: 12-01-2023 Patient encounter procedure 12/01/2023 7:30 AM EST Procedure Visit [facility] [address] [facility] [place] [address] [place] [address] [facility] Start: 11-12-2023 End: 11-12-2023 Patient encounter procedure 11/12/2023 9:00 AM EST Procedure Visit [facility] [address] [facility] [address] [place] [address] Lorenzo Lr MD [address] [facility] [address] [place] [address] [facility] Start: 11-05-2023 End: 11-05-2023 Patient encounter procedure 11/05/2023 7:30 AM EST Procedure Visit [facility] [address] [place] [address] [place] [address] [facility] Start: 11-04-2023 End: 11-04-2023 Patient encounter procedure 11/04/2023 7:30 AM EST Procedure Visit [facility] [address] [place] [address] [place] [address] [facility] Start: 11-03-2023 End: 11-03-2023 Patient encounter procedure 11/03/2023 7:30 AM EST Procedure Visit [facility] [address] [place] [address] [place] [address] [facility] Start: 10-20-2023 Behavioral Health Screening Behavioral Health Screening [facility] Start: 10-20-2023 Depression Assessment Depression Assessment [facility] Start: 10-10-2023 End: 10-10-2023 Patient encounter procedure 10/10/2023 7:30 AM EST Procedure Visit [facility] [address] [place] [place] [address] [place] [address] [facility] Start: 10-09-2023 End: 10-09-2023 Patient encounter procedure 10/09/2023 7:30 AM EST Procedure Visit [facility] [address] [place] [address] [place] [address] [facility] Start: 10-08-2023 End: 10-08-2023 Patient encounter procedure 10/08/2023 7:30 AM EST Procedure Visit [facility] [address] [place] [address] [place] [address] [facility] Start: 10-06-2023 End: 10-06-2023 ambulatory [facility] Start: 09-10-2023 End: 09-10-2023 Patient encounter procedure 09/10/2023 7:30 AM EST Procedure Visit [facility] [address] [place] [address] [place] [address] [facility] Start: 09-09-2023 End: 09-09-2023 Patient encounter procedure 09/09/2023 7:30 AM EST Procedure Visit [facility] [address] [place] [address] [place] [address] [facility] Start: 09-08-2023 End: 09-08-2023 Patient encounter procedure 09/08/2023 7:30 AM EST Procedure Visit [facility] [address] [place] [address] [place] [address] [facility] Start: 08-08-2023 End: 08-08-2023 Patient encounter procedure 08/08/2023 7:30 AM EDT Procedure Visit [facility] [address] [place] [address] [place] [address] [facility] Start: 08-07-2023 End: 08-07-2023 Patient encounter procedure 08/07/2023 7:30 AM EDT Procedure Visit [facility] [address] [place] [address] [place] [address] [facility] Start: 08-06-2023 End: 08-06-2023 Patient encounter procedure 08/06/2023 7:30 AM EDT Procedure Visit [facility] [address] [place] [address] [place] [address] [facility] Start: 08-05-2023 End: 08-05-2023 Patient encounter procedure 08/05/2023 8:00 AM EDT Procedure Visit [facility] [address] [facility] [address] [place] [phone] Lorenzo Lr MD [address] [place] [address] [facility] Start: 07-14-2023 End: 07-14-2023 ambulatory 07/14/2023 11:30 AM EDT Infusion [facility] [address] [place] [phone] Lorenzo Lr MD [address] [address] [facility] Start: 07-09-2023 End: 07-09-2023 Patient encounter procedure 07/09/2023 9:00 AM EDT Procedure Visit [facility] [address] [phone] Lorenzo Lr MD [address] [address] [facility] Start: 07-07-2023 End: 07-07-2023 ambulatory 07/07/2023 10:30 AM EDT Infusion [facility] [address] [place] [address] Lorenzo Lr MD [address] [address] [facility] Start: 07-04-2023 End: 07-04-2023 ambulatory 07/04/2023 10:30 AM EDT Infusion [facility] [address] [place] [address] Lorenzo Lr MD [address] [address] [facility] Start: 06-20-2023 Covid-19 Vaccine ( season) Covid-19 Vaccine () [facility] Start: 06-20-2023 Influenza vaccination [facility] Start: 06-18-2023 End: 06-18-2023 Patient encounter procedure 06/18/2023 7:30 AM EDT Procedure Visit [facility] [address] [place] [address] [place] [address] [facility] Start: 06-17-2023 End: 06-17-2023 Patient encounter procedure 06/17/2023 7:30 AM EDT Procedure Visit [facility] [address] [place] [address] [place] [address] [facility] Start: 06-16-2023 End: 06-16-2023 Patient encounter procedure 06/16/2023 7:30 AM EDT Procedure Visit [facility] [address] [facility] [place] [address] [place] [address] [facility] Start: 04-08-2023 End: 04-08-2023 Patient encounter procedure [facility] Start: 04-07-2023 End: 04-07-2023 Patient encounter procedure [facility] Start: 04-04-2023 End: 04-04-2024 Ambulatory EEG 48 hours Ambulatory EEG 48 hours Neurology Routine Complex partial seizures with consciousness impaired (HCC) Expected: 04/04/2023 (Approximate), Expires: 04/04/2024 [facility] Work Phone: Comment on above: Expected: 04/04/2023 (Approximate), Expi res: 04/04/2024 Start: 04-01-2023 End: 04-01-2023 ambulatory [facility] Start: 03-27-2023 End: 03-27-2023 Patient encounter procedure 03/27/2023 12:00 PM EDT Procedure Visit [facility] [address] [place] [address] Arrived [facility] Comment on above: Arrived Start: 03-27-2023 End: 03-27-2023 ambulatory 03/27/2023 Infusion Infusion Therapy Lorenzo Lr MD [address] [place] [address] [facility] Start: 03-26-2023 Evaluation and management of inpatient [facility] Start: 03-26-2023 End: 03-26-2023 Patient encounter procedure [facility] [address] Start: 02-03-2023 End: 02-04-2024 EEG CARE HOME MONITORING 2 - 3 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 EVAL Neurology Routine Syncope and collapse Autonomic dysfunction Expected: 02/03/2023 (Approximate), Expires: 02/04/2024 [facility] [facility] Work Phone: Comment on above: Expected: 02/03/2023 (Approximate), Expi res: 02/04/2024 Start: 02-03-2023 End: 02-04-2024 MR Brain WO and W contrast IV MR brain w and wo contrast Imaging Routine Syncope and collapse Autonomic dysfunction Expected: 02/03/2023, Expires: 02/04/2024 [facility] [employer] Comment on above: Expected: 02/03/2023, Expires: Start: 02-03-2023 End: 02-03-2023 Patient encounter procedure 02/03/2023 Office Visit Neurology Venu Mccall MD [address] [place] [address] [address] [place] [address] [facility] Start: 01-27-2023 End: 01-27-2023 Patient encounter procedure 01/27/2023 Office Visit Neurology Lorenzo Lr MD [address] [facility] [address] [place] [address] [facility] Serafina Start: 01-09-2023 End: 01-09-2023 Patient encounter procedure 01/09/2023 [place] [address] [place] [address] [address] [place], [place] [id number] [facility] Start: 12-21-2022 Patient discharge [facility] Start: 12-19-2022 End: 12-20-2022 [facility] Start: 12-19-2022 Catheterization of vein [facility] Start: 12-19-2022 Patient referral to dietitian [facility] Start: 12-19-2022 Insertion of nasogastric tube [facility] Start: 12-18-2022 Following clinical pathway protocol [facility] Start: 12-18-2022 Venous catheter care management [facility] Start: 12-18-2022 Ambulation without limitation [facility] Start: 12-18-2022 Assessment of risk of venous thromboembolism [facility] Start: 12-18-2022 Insertion of catheter into peripheral vein [facility] Start: 12-18-2022 Patient referral to dietitian [facility] Start: 12-18-2022 Providing care according to standard [facility] Start: 12-18-2022 Referral to gastroenterology service [facility] Start: 12-18-2022 Referral to service [facility] Start: 12-18-2022 [facility] Start: 12-18-2022 Verification routine [facility] Start: 12-18-2022 Admission procedure [facility] Start: 12-18-2022 Urinalysis complete panel - Urine [facility] Start: 12-13-2022 Mammography MAMMOGRAM [facility] Start: 12-12-2022 Venous catheter care management [facility] Start: 12-02-2022 End: 12-02-2023 Drug Monitor Panel 5 Screen, Urine ([facility]) Drug Monitor Panel 5 Screen, Urine ([facility]) Lab Routine Syncope and collapse 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 Expected: 12/02/2022 (Approximate), Expires: 12/02/2023 [facility] Work Phone: Comment on above: Expected: 12/02/2022 (Approximate), Expi res: 12/02/2023 Start: 10-20-2022 DEPRESSION ASSESSMENT DEPRESSION ASSESSMENT [facility] Start: 08-18-2022 Venous catheter care management [facility] Start: 06-20-2022 Influenza vaccination [facility] Start: 03-01-2022 RAFA, Provider: Joshua Velasquez, Status: Pen, Time: 10:00 AM RAFA, Provider: Joshua Velasquez, Status: Pen, Time: 10:00 AM EW-Zujoqgtyte-Khzneh PA Work Phone: Start: 02-21-2022 Egd transoral biopsy single/multiple EGD BIOPSY SINGLE/MULTIPLE [facility] Work Phone: Start: 02-21-2022 Venous catheter care management [facility] Work Phone: Start: 01-07-2022 VIRFUVINA, Provider: Joshua Velasquez, Status: Pen, Time: 9:30 AM VIRFUVHOME, Provider: Joshua Velasquez, Status: Pen, Time: 9:30 AM BQ-Srrjdcbog-Tkefm 204 Work Phone: Start: 12-17-2021 FUVGENERAL, Provider: Chari Keating, Status: Pen, Time: 2:00 PM FUVGENERAL, Provider: Chari Keating, Status: Pen, Time: 2:00 PM XM-Hdqihkklli-Uuyjnx 12th PA Work Phone: Start: 12-17-2021 FUVGENERAL, Provider: Chari Rogers, Status: Pen, Time: 2:00 PM FUVGENERAL, Provider: Chari Rogers, Status: Pen, Time: 2:00 PM SQ-Fyspvfdao-Pcwtz 204 Work Phone: Start: 12-12-2021 VIRFUVINA, Provider: Joshua Velasquez, Status: Pen, Time: 10:30 AM VIRFUVHOME, Provider: Joshua Velasquez, Status: Pen, Time: 10:30 AM PA-Ksevzrxmcw-Bfoxdy 12th [place] Work Phone: Start: 11-13-2021 NPV, Provider: Joshua Velasquez, Status: Pen, Time: 10:00 AM NPV, Provider: Joshua Velasquez, Status: Pen, Time: 10:00 AM EC-Yymoikerl-Zmsuei 170 DO Work Phone: Start: 10-25-2021 NPVGENERAL, Provider: Freddy Franco, Status: Pen, Time: 11:45 AM NPVGENERAL, Provider: Freddy Franco, Status: Pen, Time: 11:45 AM [facility] Work Phone: Start: 05-21-2021 COVID-19 VACCINE (3 - Booster for Pfizer series) COVID-19 VACCINE (3 - Booster for Pfizer series) [facility] Start: 05-21-2021 COVID-19 Vaccine (3 - Pfizer series) COVID-19 Vaccine (3 - Pfizer series) [facility] Start: 2020 COLOGUARD (FIT-DNA) COLOGUARD (FIT-DNA) [facility] Start: 2020 Colonoscopy COL[facility]COPY [facility] [facility] Start: 2020 COLORECTAL CANCER SCREENING COLORECTAL CANCER SCREENING [facility] Start: [address] COLONOGRAPHY [facility] Start: 2020 DIABETES SCREEN DIABETES SCREEN [facility] Start: 2020 Diabetes Screening Diabetes Screening [facility] Start: 2020 FECAL OCCULT BLOOD FECAL OCCULT BLOOD [facility] Start: 2020 Lipid 1996 panel - Serum or Plasma Lipid Screening [facility] Start: 2020 Lipid panel Lipid Screening [facility] Start: 2020 LIPID SCREEN LIPID SCREEN [facility] Start: 2020 Screening for malignant neoplasm of colon [facility] Start: 2020 SIGMOIDOSCOPY SIGMOIDOSCOPY [facility] Start: 2015 Screening for malignant neoplasm of breast Mammogram [facility] Start: 2005 Screening for malignant neoplasm of cervix [facility] Start: 1996 Screening for malignant neoplasm of cervix Pap Smear [facility] Start: 1994 DTaP/Tdap/Td Vaccines (1 - Tdap) DTaP/Tdap/Td Vaccines (1 - Tdap) [facility] Start: 1994 Hepatitis B Vaccine (1 of 3 - 19+ 3-dose series) Hepatitis B Vaccine (1 of 3 - 19+ 3-dose series) [facility] Start: 1994 Hepatitis B Vaccines (1 of 3 - 19+ 3-dose series) Hepatitis B Vaccines (1 of 3 - 19+ 3-dose series) [facility] Start: 1994 Urine microalbumin profile [facility] Start: 1993 Diabetes mellitus screening Diabetes Screening [facility] Start: 1993 HEPATITIS C SCREENING HEPATITIS C SCREENING [facility] Start: 1993 Hepatitis C screening Hepatitis C Screening [facility] Start: 1993 HIV SCREENING HIV SCREENING [facility] Start: 1993 HIV screening HIV Screening [facility] Start: 1987 Depression Monitoring Depression Monitoring [facility] Start: 1987 Depression Screening Depression Screening [facility] Start: 1985 Diabetic foot examination Diabetes: Foot Exam [facility] Start: 1985 Glaucoma screening Diabetes: Retinopathy Screening [facility] Start: 1985 Preventive dental service Diabetes: Dental Exam [facility] Start: 1982 DTaP/Tdap/Td Vaccines (1 - Tdap) DTaP/Tdap/Td Vaccines (1 - Tdap) [facility] Start: 1976 MMR Vaccines (1 of 1 - Standard series) MMR Vaccines (1 of 1 - Standard series) [facility] Start: 1975 Hemoglobin A1c measurement Diabetes: Hemoglobin A1C [facility] Start: 1975 HEPATITIS B (1 of 3 - 3-dose series) HEPATITIS B (1 of 3 - 3-dose series) [facility] Start: 1975 Hepatitis B Vaccine (1 of 3 - 3-dose series) Hepatitis B Vaccine (1 of 3 - 3-dose series) [facility] Start: 1975 Hepatitis B Vaccines (1 of 3 - 3-dose series) Hepatitis B Vaccines (1 of 3 - 3-dose series) [facility] Start: 1975 HIV screening HIV Screening [facility] Start: 1975 Lipid panel Lipid Panel [facility] Start: 1975 Screening for malignant neoplasm of colon [facility] Bilirubin measuremen t, urine [facility] CT Chest WO and W contrast IV [facility] End: 01-09-2025 DBT Breast - bilateral screening ISAIAS SCREENING W ARTI Radiology Routine Encounter for screening mammogram for breast cancer 1 Occurrences starting 12/11/2023 until 01/09/2025 [facility] Work Phone: Comment on above: 1 Occurrences starting 12/11/2023 until 01/09/2025 Hemoglobin [Presence ] in Urine [facility] ISAIAS SCREENING ISAIAS SCREENING Ra diology Routine Visit for screening mammogram Ordered: 10/31/2022 [facility] Work Phone: Comment on above: Ordered: 10/31/2022 Measurement of keton es in urine using dipstick [facility] Microscopic urinalysis [facility] End: 03-26-2023 MR Brain WO and W contrast IV [facility] Work Phone: Comment on above: Once for 1 Occurrences starting 03/26/20 until 03/26/2023 Patient Education [facility] Work Phone: Patient referral [facility] Work Phone: pH of Urine [facility] Specific gravity of Urine [facility] Urinalysis, blood, qualitative [facility] Urine dipstick for glucose [facility] Urine dipstick for leukocyte esterase [facility] Urine dipstick for nitrite [facility] Urine dipstick for protein [facility] Urine examination [facility] Urine microscopy: epithelial cells [facility] Urine Microscopy: wh ite cells [facility] Urobilinogen [Presen ce] in Urine [facility] Immunizations Immunization Date Immunization Notes Care Provider Yamileth elise 03-26-2021 Pfizer-BioNTech COVI D-19 Vacc 30 MCG/0.3ML Intramuscular Suspension Nikky S Jolliff Work Phone: [facility] 03-05-2021 Pfizer-BioNTech COVI D-19 Vacc 30 MCG/0.3ML Intramuscular Suspension Nikky S Jolliff Work Phone: [facility] 08-19-2014 influenza, seasonal, injectable Nikky S Jolliff Work Phone: [facility] [address] [place] [address] Work Phone: 08-19-2014 influenza virus vacc ine, unspecified formulation Lorenzo Lr MD Work Phone: [facility] 07-30-2013 influenza, seasonal, injectable Nikky S Jolliff Work Phone: [facility] [address] [place] [address] Work Phone: 08-10-2012 influenza, seasonal, injectable Nikky S Jolliff Work Phone: [facility] [address] [place] [address] Work Phone: Payers Date Payer Category Payer [employer] ( [employer] others) [id number] 2024 () [id number] 2024 [employer] ( and others) [id number] 2024 Commercial Managed Care - PPO [id number] 2024 Private Health Insurance [id number] 2024 [employer] ( and others) [id number] 2024 Self-pay [id number] 2022 [employer] - HMO [id number] 2018 Unknown 2009 Unknown [id number] Unknown [id number] Unknown [id number] Unknown [id number] Social History Date Type Detail Facility Start: 02-03-2023 End: 04-06-2025 Never a smoker Never a smoker [facility] [employer] Work Phone: Start: 12-24-2021 End: 08-05-2023 Tobacco smoking status OKIS Unknown if ever smoked [facility] Start: 09-23-2021 Rare [facility] Start: 09-23-2021 None [facility] Start: 09-23-2021 Homeless [facility] Start: 09-15-2020 Non-smoker [facility] Start: 1975 Sex Assigned At Female C [facility] Start: 11-16-2014 End: 12-02-2022 Tobacco smoking status NHIS Never smoked tobacco [facility] Start: 11-16-2014 End: 12-02-2022 Tobacco use and exposure Smokeless tobacco non-user [facility] Start: 11-15-2020 Alcohol intake Current non-dr change over of alcohol (finding) [facility] Start: 1975 Sex Assigned At Not on file [facility] Start: 11-22-2022 End: 07-14-2023 Exposure to SARS-CoV-2 (event) Not sure [facility] Start: 02-03-2023 End: 04-06-2025 Tobacco use panel [facility] Start: 04-08-2023 End: 04-06-2025 Alcohol intake Ex-drinker (finding) [facility] National Score (1-100), lower number is lower risk Not on file [facility] Start: 06-05-2020 Gender identity Identifies as female gender (finding) [facility] Start: 06-05-2020 Sexual orientation Heterosexual (fin soy) [facility] Start: 10-31-2022 Sex Female (finding) [facility] NEGATED: Highlighted row [facility] Medical Equipment Procedure Code Equipment Code Equipment Origin al Text Equipment Identifier Dates EGD, with monitored anesthesia care PROBE,PH CAPSULE WITH DEL SYS FDA Start: 02-21-2022 EGD, with monitored anesthesia care PROBE,PH CAPSULE WITH DEL SYS FDA Start: 02-21-2022 EGD, with monitored anesthesia care PROBE,PH CAPSULE WITH DEL SYS FDA Start: 02-21-2022 EGD, with monitored anesthesia care PROBE,PH CAPSULE WITH DEL SYS FDA Start: 02-21-2022 EGD, with monitored anesthesia care PROBE,PH CAPSULE WITH DEL SYS FDA Start: 02-21-2022 EGD, with monitored anesthesia care PROBE,PH CAPSULE WITH DEL SYS FDA Start: 02-21-2022 EGD, with monitored anesthesia care PROBE,PH CAPSULE WITH DEL SYS FDA Start: 02-21-2022 EGD, with monitored anesthesia care PROBE,PH CAPSULE WITH DEL SYS FDA Start: 02-21-2022 EGD, with monitored anesthesia care PROBE,PH CAPSULE WITH DEL SYS FDA Start: 02-21-2022 Goals Date Patient Goal Desired Activity /State Functional Status Date Assessment Result Facility 03-27-2023 Are you deaf, or do you have serious difficulty hearing No 03/27/2023 9:59 AM Jessica Moore, RN No [facility] 03-27-2023 Are you blind, or do you have serious difficulty seeing, even when wearing glasses No 03/27/2023 9:59 AM Jessica Moore, RN No [facility] 03-27-2023 Do you have serious difficulty walking or climbing stairs No 03/27/2023 9:59 AM Jessica Moore, RN No [facility] 03-27-2023 Do you have difficul ty dressing or bathing No 03/27/2023 9:59 AM Jessica Moore, RN No [facility] 03-27-2023 Because of a physica l, mental, or emotional condition, do you have difficulty doing errands alone such as visiting a physician's office or shopping No 03/27/2023 9:59 AM Jessica Moore, RN No [facility] 12-21-2022 Functional status Ambulates [facility] Work Phone: 11-13-2021 PHQ-9 [id number] Mild (5-9) [facility] Work Phone: Mental Status Date Assessment Result Facility 03-27-2023 Because of a physica l, mental, or emotional condition, do you have serious difficulty concentrating, remembering, or making decisions No 03/27/2023 9:59 AM Jessica Moore, RN No [facility] 12-21-2022 Cognitive function Voice/Name [facility] Work Phone: 02-21-2022 Cognitive function Voice/Name [facility] Work Phone: Clinical Notes 11-13-1987 to 04-13-2025 Isidro Deleon RN - 04/13/2025 7:30 AM Max Deleon RN - 04/12/2025 7:30 AM Max Deleon RN - 04/11/2025 7:30 AM Suly Hebert RN - 04/06/2025 10:30 AM Max Deleon RN - 03/08/2025 7:30 AM EDT Note Date & Type Note [facility] 04-13-2025 History of Presen t illness Narrative Patient tolerated infusion well. Discharged home with daughter in law Cosigned by Tanya Blanco MD at 04/13/2025 8:11 PM EDT documented in this encounter [facility] 04-12-2025 History of Presen t illness Narrative Patient tolerated infusion well. Discharged home with daughter in law Cosigned by Tanya Blanco MD at 04/13/2025 6:23 AM EDT documented in this encounter [facility] 04-11-2025 History of Presen t illness Narrative Patient tolerated infusion well. Discharged home with daughter in law Cosigned by Tanya Blanco MD at 04/11/2025 5:08 PM EDT documented in this encounter [facility] 04-06-2025 History of Presen t illness Narrative 1005 Pt here for Vyepti. No labs ordered. 1058 Ordered treatment completed. Patient discharged without any issues. Patient has a copy of next infusion appointment and verbalizes understanding. All questions answered. 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 Specifically reviewed possible risk of muscle weakness of face and neck, including but not limited to ptosis. All questions were answered, patient expressed understanding, verbal consent was given for procedure. Botox was injected with the parameters below: With the patient in sitting position, she received Botox injections in the neck and skull muscles. Patient receive the following doses: 1. R Frontalis 10 units 2. L Frontalis 10 units 3. R Cold Work Operator 10 units 4. L Cold Work Operator 10 units 5. R Temporalis 30 units 6. L Temporalis 30 units 7. R Occipitalis 30 units 8. L Occipitalis 30 units 9. R Trapezious 20 units 10.L Trapezious 20 units Total units injected 200 units. Units discarded 0 units. Comments: Botox is Buy and Bill [facility] [id number] [x] Pt tolerated procedure well. Pt advised to avoid exercise or strenuous physical activity for 24 hours. Post treatment expectations reviewed in detail. CHAD Stevenson CNP documented in this encounter [facility] 04-06-2025 Note DEPARTMENT OF NEUROL OGY BOTOX PROCEDURE NOTE FOR HEADACHE Date: 04/06/2025 Patient: Akil Michelle : 1975 Diagnosis: 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 [G43.419] Procedure: Botulinum toxin injections for migraine Prior to procedure risks, benefits, alternatives, and potential side effects were reviewed with patient. Specifically reviewed possible risk of muscle weakness of face and neck, including but not limited to ptosis. All questions were answered, patient expressed understanding, verbal consent was given for procedure. Botox was injected with the parameters below: With the patient in sitting position, she received Botox injections in the neck and skull muscles. Patient receive the following doses: 1. R Frontalis 10 units 2. L Frontalis 10 units 3. R Cold Work Operator 10 units 4. L Cold Work Operator 10 units 5. R Temporalis 30 units 6. L Temporalis 30 units 7. R Occipitalis 30 units 8. L Occipitalis 30 units 9. R Trapezious 20 units 10.L Trapezious 20 units Total units injected 200 units. Units discarded 0 units. Comments: Botox is Buy and Bill [facility] [id number] [x] Pt tolerated procedure well. Pt advised to avoid exercise or strenuous physical activity for 24 hours. Post treatment expectations reviewed in detail. Iron Krishnan APRN - PROFESSOR OF VOICE [facility] 03-31-2025 Telephone encounter Note Patient's primary insurance has changed ([employer]) and [facility] not contracted with them. Per pt please transfer Ubrelvy and Belsomra to [facility] in [place] #[phone] Other rxs can be filled within [facility]. Thanks! I pended both rxs for your review. [facility] 03-31-2025 Miscellaneous Notes Patient's primary insurance has changed ([employer]) and [facility] not contracted with them. Per pt please transfer Ubrelvy and Belsomra to [facility] in [place] #[phone] Other rxs can be filled within [facility]. Thanks! I pended both rxs for your review. documented in this encounter [facility] 03-21-2025 Telephone encounter Note Last ov- 02/18/25 Next ov- 04/06/25 [facility] 03-21-2025 Miscellaneous Notes Last ov- 02/18/25 Next ov- 04/06/25 documented in this encounter [facility] 03-08-2025 History of Presen t illness Narrative Patient tolerated infusion well. Discharged home with father. Cosigned by Tanya Blanco MD at 03/08/2025 4:59 PM EDT documented in this encounter [facility] 03-07-2025 Telephone encounter Note Call to patient. Patient notified. Patient verbalized understanding. [facility] 03-07-2025 Miscellaneous Notes Call to patient. Patient notified. Patient verbalized understanding. Refill sent in Patient came into the office. Patient stated accidentally threw away belsomra blister pack in the trash. Patient is requesting a refill of medication. Patient stated has one more pill for tonight. Patient also wants to know, if can not get the medication will she have any symptoms? Please advise. documented in this encounter [facility] 03-07-2025 Telephone encounter Note Refill sent in [facility] 03-07-2025 Telephone encounter Note Patient came into the office. Patient stated accidentally threw away belsomra blister pack in the trash. Patient is requesting a refill of medication. Patient stated has one more pill for tonight. Patient also wants to know, if can not get the medication will she have any symptoms? Please advise. [facility] 03-07-2025 Telephone encounter Note Last ov- 02/18/25 Next ov- 04/06/25 [facility] 03-07-2025 Miscellaneous Notes Last ov- 02/18/25 Next ov- 04/06/25 documented in this encounter [facility] 02-18-2025 History of Presen t illness Narrative Images from the original note were not included. [facility] [address] [place] [address] [facility] [address] Dept: [phone] Dept Loc: [phone] Visit type: Established Patient Reason for Visit: Follow-up Assessment and Plan 1. Confusional arousals - Polysomnography 2. Sleep paralysis - Polysomnography 3. 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 Primary insomnia - suvorexant (Belsomra) 20 MG tablet; Take 1 tablet (20 mg) by mouth Nightly as needed for sleep. Do not start before December 17, 2024., Starting Fri02/18/2025, Until 03/20/2025 at 2359, Normal 5. Obstructive sleep apnea - Polysomnography Subjective HPI: She reports that her migraines are 12-16 migraine days per month with about 2 days per week of being in bed and unable to function (8 days per month). Her is deployed and there has been an increase in storms. The weather changes are a major factor. She reports that she has been having episodes of sleep paralysis. She reports that when her was home that he would shake her out of it, but she does not have him around. She reports that this started over a year ago. It's like I am stuck in a dream and cannot move. She is often gasping for air when this happens. The patient denies sleep paralysis. Snoring?No Tired? (Tired, Fatigued, or Sleepy during the daytime) Yes Observed? (Stop Breathing or Choking/Gasping during your sleep)Yes Pressure? (High blood pressure meds?)No Body Mass Index is 28 or greater?No Age greater than 50?No Neck size (Men >17 in, Women >16 in) No Gender Male?No REVIEW OF SYSTEMS: Review of Systems Constitutional: Negative for appetite change, chills, diaphoresis, fatigue, fever and unexpected weight change. HENT: Negative for dental problem and mouth sores. Eyes: Negative for discharge and itching. Respiratory: Negative for chest tightness and shortness of breath. Cardiovascular: Negative for chest pain, palpitations and leg swelling. Gastrointestinal: Positive for nausea. Negative for abdominal pain, rectal pain and vomiting. Endocrine: Negative for polydipsia, polyphagia and polyuria. Genitourinary: Negative for decreased urine volume, flank pain and genital sores. Musculoskeletal: Negative for arthralgias, back pain and neck pain. Skin: Negative for color change. Allergic/Immunologic: Negative for food allergies and immunocompromised state. Neurological: Positive for dizziness and headaches. Negative for weakness. Hematological: Negative for adenopathy. Does not bruise/bleed easily. Psychiatric/Behavioral: Positive for confusion. Negative for agitation, behavioral problems, decreased concentration, sleep disturbance and suicidal ideas. Allergies Allergen Reactions Amitriptyline Hallucinations Azithromycin Other reaction(s): GI Upset, GI Upset Erythromycin Base Other reaction(s): Nausea Gabapentin Other reaction(s): Swelling Hydrocodone Other reaction(s): Other Metoclopramide Anxiety and Palpitations Current Outpatient Medications: aspirin 81 MG oral suspension, , Disp: , Rfl: biotin 5000 MCG capsule, , Disp: , Rfl: cetirizine (ZyrTEC) 10 MG tablet, daily., Disp: , Rfl: Cholecalciferol (Vitamin D) 125 MCG (5000 UT) capsule, , Disp: , Rfl: dihydroergotamine (DHE) 1 MG/ML injection, Infuse 1 mg into a venous catheter Once., Disp: , Rfl: eptinezumab (Vyepti) 100 MG/ML injection, Infuse 3 mL (300 mg) into a venous catheter Every 3 months., Disp: 3 mL, Rfl: 3 famotidine (Pepcid) 20 MG tablet, famotidine 20 mg tablet, Disp: , Rfl: hydrOXYzine HCl (Atarax) 25 MG tablet, Take one or two tablets by mouth at bedtime as needed with suvorexant, Disp: 60 tablet, Rfl: 1 levonorgestrel (Mirena, 52 MG,) 20 MCG/DAY IUD, 1 each by IntraUTERine route., Disp: , Rfl: linaCLOtide (Linzess) 145 MCG capsule, Take 145 mcg by mouth every morning (before breakfast). Do not crush or chew., Disp: , Rfl: Magnesium 500 MG capsule, , Disp: , Rfl: Methylcobalamin 1000 MCG sublingual tablet, Mecobalamin (Vitamin B12) Active 1000 MCG SL DAILY February 12, 2022 11:[address] place tablet under tongue and allow to dissolve for at least30 secs before swallowing, Disp: , Rfl: omega-3 (fish oil) 1000 MG capsule, , Disp: , Rfl: onabotulinumtoxinA (Botox) 200 units injection, Provider to inject 200 units intramuscularly every 12 weeks for migraine prevention., Disp: 1 each, Rfl: 1 pancrelipase, Hvj-Dtpu-Xyjz, (Zenpep) [id number] units capsule delayed-release particles capsule, , Disp: , Rfl: pancrelipase, Dau-Eutc-Fuav, (Zenpep) [id number] units capsule delayed-release particles capsule, , Disp: , Rfl: pantoprazole (ProtoNix) 40 MG EC tablet, pantoprazole 40 mg tablet,delayed release, Disp: , Rfl: suvorexant (Belsomra) 20 MG tablet, Take 1 tablet (20 mg) by mouth Nightly as needed for sleep. Do not start before February 19, 2024., Disp: 30 tablet, Rfl: 2 tiZANidine (Zanaflex) 4 MG tablet, Take 1 tablet (4 mg) by mouth every 6 hours as needed (neck pain)., Disp: 90 tablet, Rfl: 3 topiramate (Topamax) 100 MG tablet, Take 1 tablet (100 mg) by mouth Nightly., Disp: 90 tablet, Rfl: 3 Atogepant (Qulipta) 60 MG tablet, Take 1 tablet by mouth daily., Disp: 30 tablet, Rfl: 11 eptinezumab (Vyepti) 100 MG/ML injection, Infuse 3 mL (300 mg) into a venous catheter Every 3 months., Disp: 3 mL, Rfl: 3 suvorexant (Belsomra) 20 MG tablet, Take 1 tablet (20 mg) by mouth Nightly as needed for sleep. Do not start before December 17, 2024., Disp: 30 tablet, Rfl: 2 ubrogepant (Ubrelvy) 100 MG tablet tablet, Take 1 tablet by mouth Daily as needed (migraine)., Disp: 10 tablet, Rfl: 11 Current Facility-Administered Medications: onabotulinumtoxinA (Botox) injection 200 Units, 200 Units, IntraMUSCular, Once, Lorenzo Lr MD Past Medical History: Diagnosis Date Jerome esophagus Cluster headache 2009 Gastroparesis Insomnia 2009 Memory loss 2020 Migraine Syncope 2020 Social History Tobacco Use Smoking status: Never Smokeless tobacco: Never Substance Use Topics Alcohol use: Not Currently Alcohol/week: 1.0 standard drink of alcohol Types: 1 Standard drinks or equivalent per week Past Surgical History: Procedure Laterality Date CHOLECYSTECTOMY ENDOSCOPY VISIT OUTPATIENT (HISTORICAL) OOPHORECTOMY Left PORTACATH PLACEMENT REMOVAL OF KIDNEY STONE (HISTORICAL) TUBAL LIGATION Family History Problem Relation Name Age of Onset Dementia Father Demario Robles Dementia Paternal Grandfather Nghia Travis Alzheimer's disease Paternal Grandmother Angel Sibley Parkinsonism Paternal Grandmother Angel Sibley Objective Vitals: BP 126/86 (BP Location: Right arm, Patient Position: Sitting, BP Cuff Size: Adult) Pulse 58 Ht 5' 2 (1.575 m) Wt 123 lb 6.4 oz (56 kg) BMI 22.57 kg/m General Appearance: Patient is in no apparent distress. Head is normocephalic, atraumatic Cardiovascular: Regular rate and rhythm. No heart murmurs. No carotid bruit Neurologic: Mentation: Alert and oriented x 3 [address], [address] and time. Speech and Language: Speech and language normal Concentration and Attention: Concentration normal Memory: Memory normal Fund of Knowledge: Fund of knowledge normal Cranial Nerves: II, III, IV, V, , VII, VIII, IX, X, XI, XII examined and were intact. Motor: Strength: Strength 5 out of 5 with normal tone Alternating Movements: Normal Cogwheel Rigidity: None Tone: Tone is normal Tremor / Involuntary Movements: None Deep Tendon Reflexes: 1 out of 4 symmetrical in all four limbs. Coordination: Normal coordination upper and lower extremities Gait and Station: Station is normal. Gait is normal Data Reviewed and Summarized DIAGNOSTIC TESTING CBC: Lab Results Component Value Date WBC 5.3 03/26/2023 RBC 4.65 03/26/2023 HGB 12.9 03/26/2023 HCT 39.7 03/26/2023 MCV 85.3 03/26/2023 MCH 27.7 03/26/2023 MCHC 32.4 03/26/2023 RDW 13.8 03/26/2023 PLT 198 03/26/2023 MPV 7.9 03/26/2023 CMP: Lab Results Component Value Date NA 139 03/26/2023 K 3.7 03/26/2023 CL 109 (H) 03/26/2023 CO2 20 (L) 03/26/2023 BUN 15 03/26/2023 CREATININE 1.17 (H) 03/26/2023 GLUCOSE 139 (H) 03/26/2023 PROT 7.1 03/26/2023 CALCIUM 9.2 03/26/2023 BILITOT 0.6 03/26/2023 ALKPHOS 104 03/26/2023 AST 28 03/26/2023 ALT 24 03/26/2023 BMP: Lab Results Component Value Date NA 139 03/26/2023 K 3.7 03/26/2023 CL 109 (H) 03/26/2023 CO2 20 (L) 03/26/2023 BUN 15 03/26/2023 CREATININE 1.17 (H) 03/26/2023 CALCIUM 9.2 03/26/2023 GLUCOSE 139 (H) 03/26/2023 PT/INR: No results found for: PROTIME, INR PTT: No results found for: APTT, PTT[APTT} FLP: No results found for: CHLPL, TRIG, HDL, LDLCALC, LDLDIRECT TSH: No results found for: TSH VITAMIN B12: No results found for: SSIHEHLD11 No results found for: PHENYTOIN, PHENOBARB, VALPROATE, CBMZ No components found for: TOPIRA @RESULTINGLABINFO@ No results found for: LEVETIRACETA, FERRITIN, CRP, ARNEL, ANCA No results found for: ROB, IMMUNOGLOBUL, OLIGOBANDS No results found for: YTV21ZU, HEPCAB No results found for: CRP, ANATITER, ANCA FERRITIN: No results found for: FERRITIN ---- MR brain w and wo contrast Narrative: [facility] 1975 [id number] Exam Date/Time: 03/26/2023 12:17 Procedure: MR BRAIN W AND WO CONTRAST Ordering Provider: MCCALL MARVIN Reason For Exam: Seizure disorder, clinical change EXAMINATION: MRI BRAIN WITH AND WITHOUT CONTRAST, EPILEPSY PROTOCOL WITH DIFFUSION TENSOR IMAGING CLINICAL INDICATION: Seizures TECHNIQUE: Multi-planar multi-sequential MR imaging of the brain was performed before and after the administration of intravenous gadolinium based contrast, with special attention to the mesial temporal structures. Sequences include high resolution gapless T1 weighted (MPRAGE) and T2 weighted (SPACE) volumes. Fluid liquid attenuation inversion recovery (FLAIR) and Susceptibility weighted (SWI) sequences were also obtained. Additionally, diffusion tensor imaging (using 64 gradient directions) was acquired. Fractional Anisotropy (FA) and Apparent Diffusion Coefficient (ADC) were obtained after tensor reconstruction. COMPARISON: None available FINDINGS: LIMBIC SYSTEM: Hippocampi are symmetric in volume and signal. Internal hippocampal architecture is preserved. Fornices and mamillary bodies are within normal limits. No abnormal focal cortical thickening or blurring of hernandez-white differentiation. DTI: Fractional Anisotropy along dominant white matter bundles is preserved. No abnormal (hyperintense or hypointense) signal on ADC to suggest (increased or decreased) diffusivity. CORTEX: No evidence of heterotopia, cortical dysplasia, or acute infarction. WHITE MATTER: Punctate nonspecific focus of hyperintense signal on T2/FLAIR imaging within the subcortical right frontal lobe (series 6, image 94). MASS/VASCULAR LESION: None. REMOTE INJURY: No encephalomalacia or evidence of prior hemorrhage. VENTRICLES AND SULCI: Normal caliber of the ventricles and sulci. SKULL BASE: Normal appearance of the pituitary gland. Normal position of the cerebellar tonsils. EXTRACRANIAL STRUCTURES: Normal orbits. No extracranial soft tissue abnormalities. SINUSES/MASTOIDS: Clear BONES: No pathologic marrow infiltration. Impression: 1. Punctate nonspecific focus of hyperintense signal on T2/FLAIR imaging within the subcortical right frontal lobe 2. Otherwise, no potential epileptogenic focus is identified. Report Dictated on Electronically Signed By: Iam Granados Electronically Signed Date/Time: 03/31/2023 9:49 AM EDT IMPRESSION and PLAN: Diagnosis Plan 1. Confusional arousals Polysomnography 2. Sleep paralysis Polysomnography 3. 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 Primary insomnia suvorexant (Belsomra) 20 MG tablet 5. Obstructive sleep apnea Polysomnography It is medically necessary for her to get a polysomnogram to determine the cause of these gasp arousals, sleep paralysis and confusional arousal events. At her age, the most common cause would be MARGARITO. Her is deployed and no one is there to monitor her breathing. She has frequent, very difficult to control migraines, so MARGARITO would be high on the list of possible causes. The pt is to get PSG to determine cause for this as it is unusual to start as a middle aged adult. Continue her aggressive therapy which is keeping her functioning as she is completley debilitated when the migraines are out of control. Belsomra is working. Lorenzo Lr MD I spent 30 minutes caring for this patient today, reviewing labs, records, seeing the patient, documenting in the record and arranging for studies. documented in this encounter [facility] 02-03-2025 History of Presen t illness Narrative Patient tolerated infusion well. Discharged home with father. Cosigned by Tanya Blanco MD at 02/03/2025 4:31 PM EDT documented in this encounter [facility] 02-02-2025 History of Presen t illness Narrative Patient tolerated infusion well. Discharged home with father. Cosigned by Tanya Blanco MD at 02/02/2025 12:33 PM EDT documented in this encounter [facility] 02-01-2025 History of Presen t illness Narrative Patient tolerated infusion well. Discharged home with father. Cosigned by Tanya Blanco MD at 02/01/2025 5:39 PM EDT documented in this encounter [facility] 01-12-2025 History of Presen t illness Narrative Pt. Here for vyepti infusion, labs were not ordered. 1114-Ordered treatment completed. Patient discharged without any issues. Patient has a copy of next infusion appointment and verbalizes understanding. All questions answered. documented in this encounter [facility] 01-12-2025 History of Presen t illness Narrative Pt. Here for vyepti infusion, labs were not ordered. 1114-Ordered treatment completed. Patient discharged without any issues. Patient has a copy of next infusion appointment and verbalizes understanding. All questions answered. documented in this encounter [facility] 01-06-2025 Telephone encounter Note Vyepti will be supplied by us at [facility] and delivered to the MD office once an appointment has been scheduled for the patient. Please reach out to patient to schedule Infusion on/after 01/13/25, and please let [facility] know [facility] once patient is scheduled. Thanks! VYEPTI IS PATIENT SUPPLIED!!! [facility] 01-06-2025 Miscellaneous Notes Vyepti will be supplied by us at [facility] and delivered to the MD office once an appointment has been scheduled for the patient. Please reach out to patient to schedule Infusion on/after 01/13/25, and please let [facility] know [facility] once patient is scheduled. Thanks! VYEPTI IS PATIENT SUPPLIED!!! 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 Specifically reviewed possible risk of muscle weakness of face and neck, including but not limited to ptosis. All questions were answered, patient expressed understanding, verbal consent was given for procedure. Botox was injected with the parameters below: With the patient in sitting position, she received Botox injections in the neck and skull muscles. Patient receive the following doses: 1. R Frontalis 10 units 2. L Frontalis 10 units 3. R Cold Work Operator 10 units 4. L Cold Work Operator 10 units 5. R Temporalis 30 units 6. L Temporalis 30 units 7. R Occipitalis 30 units 8. L Occipitalis 30 units 9. R Trapezious 20 units 10.L Trapezious 20 units Total units injected 200 units. Units discarded 0 units. Comments: Botox is Patient Supplied [facility] [id number] [x] Pt tolerated procedure well. Pt advised to avoid exercise or strenuous physical activity for 24 hours. Post treatment expectations reviewed in detail. 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 Specifically reviewed possible risk of muscle weakness of face and neck, including but not limited to ptosis. All questions were answered, patient expressed understanding, verbal consent was given for procedure. Botox was injected with the parameters below: With the patient in sitting position, she received Botox injections in the neck and skull muscles. Patient receive the following doses: 1. R Frontalis 10 units 2. L Frontalis 10 units 3. R Cold Work Operator 10 units 4. L Cold Work Operator 10 units 5. R Temporalis 30 units 6. L Temporalis 30 units 7. R Occipitalis 30 units 8. L Occipitalis 30 units 9. R Trapezious 20 units 10.L Trapezious 20 units Total units injected 200 units. Units discarded 0 units. Comments: Botox is Patient Supplied [facility] [id number] [x] Pt tolerated procedure well. Pt advised to avoid exercise or strenuous physical activity for 24 hours. Post treatment expectations reviewed in detail. CHAD Stevenson CNP [facility] 01-03-2025 Telephone encounter Note Vyepti was approved from 12/30/24 - 12/29/25 through [facility] [phone]. January [facility] 01-03-2025 Miscellaneous Notes Vyepti was approved from 12/30/24 - 12/29/25 through [facility] [phone]. January Spoke to Ghada from [employer], appeal is in progress and hopefully we will hear something by Friday. Appeal faxed @[phone]. I wrote a letter Patient next vyepti is 01/04/25 and it is still denied, patient is going to have to reschedule Can you please write an appeal letter for the vyepti. Botox was approved. Please advise Can you please write an appeal letter for the vyepti. Botox was approved. Please advise Call to [facility]. Spoke with Francisca. Francisca is wanting to schedule delivery to the office for Botox. Clarifed office address with Francisca. Office has scheduled delivery. Francisca repeated back and verbalized understanding. Patient's Botox will Ship on 12/21/2024. [facility] pharmacy phone number- [phone]. Spoke to Emeli and she states Botox was approved through pt insurance and the insurance company will be setting up delivery to office. IT IS PT SUPPLIED does not take primary till january 11 or . During all of this back and fourth with the patient and insurance. She told us prior to her 11/19/24 appointment tri-care was to become primary starting 12/09/24. However the day of her appointment she told us that [employer] would be primary till mid december which was after her next botox and vyepti. So we had to submit a pa for both. On 11/19/24 both vyepti pa and botox pa was submited to [facility] for medical benefit. 11/22/2024 received a letter for botox stating that botox is excluded and must be sourced through EP program. I spoke with emeli who helped me with this. 11/25/24- vyepti was denied So looks like we need to wait until 12/09 to submit PA's for Vyepti and Botox. Anything we can do to help keep her on the Vyepti+Botox regimen? It's the only one that has worked and I have tried EVERYTHING. Pt Vyepti was denied due to the fact when used conjunction with Botox. documented in this encounter [facility] 12-31-2024 Note Spoke to Ghada Avila, appeal is in progress and hopefully we will hear something by Friday. [facility] 12-31-2024 Telephone encounter Note Spoke to Ghada from [employer], appeal is in progress and hopefully we will hear something by Friday. [facility] 12-31-2024 Miscellaneous Notes Spoke to Ghada from [facility], appeal is in progress and hopefully we will hear something by Friday. Appeal faxed @[phone]. I wrote a letter Patient next vyepti is 01/04/25 and it is still denied, patient is going to have to reschedule Can you please write an appeal letter for the vyepti. Botox was approved. Please advise Can you please write an appeal letter for the vyepti. Botox was approved. Please advise Call to [facility]. Spoke with Francisca. Francisca is wanting to schedule delivery to the office for Botox. Clarifed office address with Francisca. Office has scheduled delivery. Francisca repeated back and verbalized understanding. Patient's Botox will Ship on 12/21/2024. [facility] pharmacy phone number- [phone]. Spoke to Emeli and she states Botox was approved through pt insurance and the insurance company will be setting up delivery to office. IT IS PT SUPPLIED does not take primary till january 11 or . During all of this back and fourth with the patient and insurance. She told us prior to her 11/19/24 appointment tri-care was to become primary starting 12/09/24. However the day of her appointment she told us that [employer] would be primary till mid december which was after her next botox and vyepti. So we had to submit a pa for both. On 11/19/24 both vyepti pa and botox pa was submited to [employer] for medical benefit. 11/22/2024 received a letter for botox stating that botox is excluded and must be sourced through EP program. I spoke with emeli who helped me with this. 11/25/24- vyepti was denied So looks like we need to wait until 12/09 to submit PA's for Vyepti and Botox. Anything we can do to help keep her on the Vyepti+Botox regimen? It's the only one that has worked and I have tried EVERYTHING. Pt Vyepti was denied due to the fact when used conjunction with Botox. documented in this encounter [facility] 12-30-2024 History of Presen t illness Narrative Patient tolerated infusion well. Discharged home with father. Cosigned by Tanya Blanco MD at 12/30/2024 12:35 PM EDT documented in this encounter [facility] 12-29-2024 Telephone encounter Note Appeal faxed @[phone]. [facility] 12-29-2024 Miscellaneous Notes Appeal faxed @[phone]. I wrote a letter Patient next vyepti is 01/04/25 and it is still denied, patient is going to have to reschedule Can you please write an appeal letter for the vyepti. Botox was approved. Please advise Can you please write an appeal letter for the vyepti. Botox was approved. Please advise Call to [facility]. Spoke with Francisca. Francisca is wanting to schedule delivery to the office for Botox. Clarifed office address with Francisca. Office has scheduled delivery. Francisca repeated back and verbalized understanding. Patient's Botox will Ship on 12/21/2024. [facility] pharmacy phone number- [phone]. Spoke to Emeli and she states Botox was approved through pt insurance and the insurance company will be setting up delivery to office. IT IS PT SUPPLIED does not take primary till january 11 or . During all of this back and fourth with the patient and insurance. She told us prior to her 11/19/24 appointment tri-care was to become primary starting 2/20/25. However the day of her appointment she told us that [employer] would be primary till mid december which was after her next botox and vyepti. So we had to submit a pa for both. On 11/19/24 both vyepti pa and botox pa was submited to [facility] for medical benefit. 11/22/2024 received a letter for botox stating that botox is excluded and must be sourced through [facility] program. I spoke with emeli who helped me with this. 11/25/24- vyepti was denied So looks like we need to wait until 12/09 to submit PA's for Vyepti and Botox. Anything we can do to help keep her on the Vyepti+Botox regimen? It's the only one that has worked and I have tried EVERYTHING. Pt Vyepti was denied due to the fact when used conjunction with Botox. documented in this encounter [facility] 12-29-2024 History of Presen t illness Narrative Patient tolerated infusion well. Discharged home with father. Cosigned by Tanya Blanco MD at 12/29/2024 4:34 PM EDT documented in this encounter [facility] 12-28-2024 Telephone encounter Note I wrote a letter [facility] 12-28-2024 Miscellaneous Notes I wrote a letter Patient next vyepti is 01/04/25 and it is still denied, patient is going to have to reschedule Can you please write an appeal letter for the vyepti. Botox was approved. Please advise Can you please write an appeal letter for the vyepti. Botox was approved. Please advise Call to [facility]. Spoke with Francisca. Francisca is wanting to schedule delivery to the office for Botox. [facility] office address with [facility]. Office has scheduled delivery. Francisca repeated back and verbalized understanding. Patient's Botox will Ship on 12/21/2024. [facility] pharmacy phone number- [phone]. Spoke to Emeli and she states Botox was approved through pt insurance and the insurance company will be setting up delivery to office. IT IS PT SUPPLIED does not take primary till january 11 or . During all of this back and fourth with the patient and insurance. She told us prior to her 11/19/24 appointment tri-care was to become primary starting 12/09/24. However the day of her appointment she told us that cigjulio would be primary till mid december which was after her next botox and vyepti. So we had to submit a pa for both. On 11/19/24 both vyepti pa and botox pa was submited to [facility] for medical benefit. 11/22/2024 received a letter for botox stating that botox is excluded and must be sourced through [facility] program. I spoke with emeli who helped me with this. 11/25/24- vyepti was denied So looks like we need to wait until 12/09 to submit PA's for Vyepti and Botox. Anything we can do to help keep her on the Vyepti+Botox regimen? It's the only one that has worked and I have tried EVERYTHING. Pt Vyepti was denied due to the fact when used conjunction with Botox. documented in this encounter [facility] 12-28-2024 Telephone encounter Note Patient next vyepti is 01/04/25 and it is still denied, patient is going to have to reschedule Can you please write an appeal letter for the vyepti. Botox was approved. Please advise [facility] 12-28-2024 History of Presen t illness Narrative Patient tolerated infusion well. Discharged home with father. Cosigned by Tanya Blanco MD at 12/28/2024 4:32 PM EDT documented in this encounter [facility] 12-06-2024 Telephone encounter Note Can you please write an appeal letter for the vyepti. Botox was approved. Please advise [facility] 12-06-2024 Miscellaneous Notes Can you please write an appeal letter for the vyepti. Botox was approved. Please advise Call to [facility]. Spoke with Francisca. Francisca is wanting to schedule delivery to the office for Botox. Clarifed office address with [facility]. Office has scheduled delivery. Francisca repeated back and verbalized understanding. Patient's Botox will Ship on 12/21/2024. [facility] pharmacy phone number- [phone]. Spoke to Emeli and she states Botox was approved through pt insurance and the insurance company will be setting up delivery to office. IT IS PT SUPPLIED does not take primary till january 11 or . During all of this back and fourth with the patient and insurance. She told us prior to her 11/19/24 appointment tri-care was to become primary starting 12/09/24. However the day of her appointment she told us that cigjulio would be primary till mid december which was after her next botox and vyepti. So we had to submit a pa for both. On 11/19/24 both vyepti pa and botox pa was submited to [facility] for medical benefit. 11/22/2024 received a letter for botox stating that botox is excluded and must be sourced through [facility] program. I spoke with emeli who helped me with this. 11/25/24- vyepti was denied So looks like we need to wait until 12/09 to submit PA's for Vyepti and Botox. Anything we can do to help keep her on the Vyepti+Botox regimen? It's the only one that has worked and I have tried EVERYTHING. Pt Vyepti was denied due to the fact when used conjunction with Botox. documented in this encounter [facility] 12-01-2024 Telephone encounter Note Call to [facility]. Spoke with Francisca. Francisca is wanting to schedule delivery to the office for Botox. [facility] office address with [facility]. Office has scheduled delivery. Francisca repeated back and verbalized understanding. Patient's Botox will Ship on 12/21/2024. [facility] pharmacy phone number- [phone]. [facility] 12-01-2024 Miscellaneous Notes Call to [facility]. Spoke with Francisca. Francisca is wanting to schedule delivery to the office for Botox. Clarifed office address with Francisca. Office has scheduled delivery. Francisca repeated back and verbalized understanding. Patient's Botox will Ship on 12/21/2024. [facility] phone number- [phone]. Spoke to Emeli and she states Botox was approved through pt insurance and the insurance company will be setting up delivery to office. IT IS PT SUPPLIED does not take primary till january 11 or . During all of this back and fourth with the patient and insurance. She told us prior to her 11/19/24 appointment tri-care was to become primary starting 12/09/24. However the day of her appointment she told us that [employer] would be primary till mid december which was after her next botox and vyepti. So we had to submit a pa for both. On 11/19/24 both vyepti pa and botox pa was submited to [facility] for medical benefit. 11/22/2024 received a letter for botox stating that botox is excluded and must be sourced through EP program. I spoke with emeli who helped me with this. 11/25/24- vyepti was denied So looks like we need to wait until 12/09 to submit PA's for Vyepti and Botox. Anything we can do to help keep her on the Vyepti+Botox regimen? It's the only one that has worked and I have tried EVERYTHING. Pt Vyepti was denied due to the fact when used conjunction with Botox. documented in this encounter [facility] 12-01-2024 Telephone encounter Note Spoke to Emeli and she states Botox was approved through pt insurance and the insurance company will be setting up delivery to office. IT IS PT SUPPLIED [facility] 12-01-2024 History of Presen t illness Narrative Patient tolerated infusion well. Discharged home with Cosigned by Tanya Blanco MD at 12/01/2024 4:55 PM EST documented in this encounter [facility] 11-30-2024 History of Presen t illness Narrative The patient, Akil Toribio, identity was verified by name and . Informed patient of procedure. Received informed consent to proceed with migraine infusion Patient tolerated infusion well. Discharged home with Cosigned by Tanya Blanco MD at 11/30/2024 5:10 PM EST documented in this encounter [facility] 11-30-2024 Note The patient, Akil Toribio, identity was verified by name and . Informed patient of procedure. Received informed consent to proceed with migraine infusion Patient tolerated infusion well. Discharged home with [facility] 11-29-2024 History of Presen t illness Narrative The patient, Akil Toribio, identity was verified by name and . Informed patient of procedure. Received informed consent to proceed with migraine infusion Patient tolerated infusion well. Discharged home with Cosigned by Tanya Blanco MD at 11/29/2024 11:48 AM EST documented in this encounter [facility] 11-29-2024 Note The patient, Akil Toribio, identity was verified by name and . Informed patient of procedure. Received informed consent to proceed with migraine infusion Patient tolerated infusion well. Discharged home with [facility] 11-29-2024 Telephone encounter Note does not take primary till january 11 or . [facility] 11-29-2024 Miscellaneous Notes does not take primary till january 11 or . During all of this back and fourth with the patient and insurance. She told us prior to her 11/19/24 appointment tri-care was to become primary starting 12/09/24. However the day of her appointment she told us that [employer] would be primary till mid december which was after her next botox and vyepti. So we had to submit a pa for both. On 11/19/24 both vyepti pa and botox pa was submited to [facility] for medical benefit. 11/22/2024 received a letter for botox stating that botox is excluded and must be sourced through [facility] program. I spoke with emeli who helped me with this. 11/25/24- vyepti was denied So looks like we need to wait until 12/09 to submit PA's for Vyepti and Botox. Anything we can do to help keep her on the Vyepti+Botox regimen? It's the only one that has worked and I have tried EVERYTHING. Pt Vyepti was denied due to the fact when used conjunction with Botox. documented in this encounter [facility] 11-26-2024 Telephone encounter Note PA approved for botox through [employer]. She must use [facility] , . Copay will be $0 11/24/24-06/18/25 Auth #[id number] Medication Pended for signature, will be patient supplied to the office. This pharmacy should reach out to the office to coordinate delivery prior to her botox appt Patient likely to have new insurance for appts after this fill so we wont have to use [employer] for further Pas. Thank you! [facility] 11-26-2024 Miscellaneous Notes PA approved for botox through [employer]. She must use [facility] , . Copay will be $0 11/24/24-06/18/25 Auth #[id number] Medication Pended for signature, will be patient supplied to the office. This pharmacy should reach out to the office to coordinate delivery prior to her botox appt Patient likely to have new insurance for appts after this fill so we wont have to use [employer] for further Pas. Thank you! documented in this encounter [facility] 11-26-2024 Telephone encounter Note During all of this back and fourth with the patient and insurance. She told us prior to her 11/19/24 appointment tri-care was to become primary starting 12/09/24. However the day of her appointment she told us that [employer] would be primary till december which was after her next botox and vyepti. So we had to submit a pa for both. On 11/19/24 both vyepti pa and botox pa was submited to [employer] for medical benefit. 11/22/2024 received a letter for botox stating that botox is excluded and must be sourced through [employer] program. I spoke with emeli who helped me with this. 11/25/24- vyepti was denied [facility] 11-26-2024 Miscellaneous Notes During all of this back and fourth with the patient and insurance. She told us prior to her 11/19/24 appointment tri-care was to become primary starting 12/09/24. However the day of her appointment she told us that [employer] would be primary till december which was after her next botox and vyepti. So we had to submit a pa for both. On 11/19/24 both vyepti pa and botox pa was submited to [employer] for medical benefit. 11/22/2024 received a letter for botox stating that botox is excluded and must be sourced through [employer] program. I spoke with emeli who helped me with this. 11/25/24- vyepti was denied So looks like we need to wait until 12/09 to submit PA's for Vyepti and Botox. Anything we can do to help keep her on the Vyepti+Botox regimen? It's the only one that has worked and I have tried EVERYTHING. Pt Vyepti was denied due to the fact when used conjunction with Botox. documented in this encounter [facility] 11-25-2024 Telephone encounter Note So looks like we need to wait until 12/09 to submit PA's for Vyepti and Botox. [facility] 11-25-2024 Miscellaneous Notes So looks like we need to wait until 12/09 to submit PA's for Vyepti and Botox. Anything we can do to help keep her on the Vyepti+Botox regimen? It's the only one that has worked and I have tried EVERYTHING. Pt Vyepti was denied due to the fact when used conjunction with Botox. documented in this encounter [facility] 11-25-2024 Telephone encounter Note Anything we can do to help keep her on the Vyepti+Botox regimen? It's the only one that has worked and I have tried EVERYTHING. [facility] 11-25-2024 Telephone encounter Note Pt Vyepti was denied due to the fact when used conjunction with Botox. [facility] 11-24-2024 Telephone encounter Note Faxed chart notes for the second time to [facility] as requested [facility] 11-24-2024 Miscellaneous Notes Faxed chart notes for the second time to [facility] as requested Name of caller: Kliey Contact phone number: [phone] Relationship to Patient: [facility] Provider: Dr Lr Practice: [facility] Chief Complaint/Reason for Call: Kiley with [facility] called in again stating she was still working on prior authorization for patient for her Ubrelvy. Stated that she still needs office visit notes faxed to her at [phone]. Please advise. Best time of day caller can be reached: any Patient advised that office/PCP has 24-48 business hours to return their call: N/A Name of caller: Kiley Contact phone number: [phone] Relationship to Patient: [facility] Provider: Dr Lr Practice: [facility] Chief Complaint/Reason for Call: Kiley with [facility] called in advising she was working on prior authorization for Ubrelvy for patient, and needs updated office visit notes faxed into her. States last OV notes she has are from 2022. Notes can be faxed in to them at [phone]. Please advise. Best time of day caller can be reached: any Patient advised that office/PCP has 24-48 business hours to return their call: N/A documented in this encounter [facility] 11-24-2024 Telephone encounter Note Name of caller: Kiley Contact phone number: [phone] Relationship to Patient: Ko Provider: Dr Lr Practice: [facility] Chief Complaint/Reason for Call: Kiley with [facility] called in again stating she was still working on prior authorization for patient for her Ubrelvy. Stated that she still needs office visit notes faxed to her at [phone]. Please advise. Best time of day caller can be reached: any Patient advised that office/PCP has 24-48 business hours to return their call: N/A [facility] 11-19-2024 History of Presen t illness Narrative [facility] [address] [place] [address] [facility] [address] Dept: [phone] Dept Loc: [phone] Visit type: Established Patient Reason for Visit: Follow-up Assessment and Plan 1. Primary insomnia - suvorexant (Belsomra) 20 MG tablet; Take 1 tablet (20 mg) by mouth Nightly as needed for sleep. Do not start before December 17, 2024., Starting Fri12/17/2024, Until 01/16/2025 at 2359, Normal 2. 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 She is concerned because her is about to deploy. She reports that she is at 12-16 migraine days per month. That is up from 8 days per month, but with her about to deploy she is more anxious. She is doing mindfulness as well as Belsomra to control her insomnia. It was working but the impending deployment makes her worse now. NO passing out. REVIEW OF SYSTEMS: Review of Systems Constitutional: Negative for appetite change, chills, diaphoresis, fatigue, fever and unexpected weight change. HENT: Negative for dental problem and mouth sores. Eyes: Negative for discharge and itching. Respiratory: Negative for chest tightness and shortness of breath. Cardiovascular: Negative for chest pain, palpitations and leg swelling. Gastrointestinal: Positive for nausea. Negative for abdominal pain, rectal pain and vomiting. Endocrine: Negative for polydipsia, polyphagia and polyuria. Genitourinary: Negative for decreased urine volume, flank pain and genital sores. Musculoskeletal: Negative for arthralgias, back pain and neck pain. Skin: Negative for color change. Allergic/Immunologic: Negative for food allergies and immunocompromised state. Neurological: Positive for dizziness and headaches. Negative for weakness. Hematological: Negative for adenopathy. Does not bruise/bleed easily. Psychiatric/Behavioral: Positive for confusion. Negative for agitation, behavioral problems, decreased concentration, sleep disturbance and suicidal ideas. Allergies Allergen Reactions Amitriptyline Hallucinations Azithromycin Other reaction(s): GI Upset, GI Upset Erythromycin Base Other reaction(s): Nausea Gabapentin Other reaction(s): Swelling Hydrocodone Other reaction(s): Other Metoclopramide Anxiety and Palpitations Current Outpatient Medications: aspirin 81 MG oral suspension, , Disp: , Rfl: biotin 5000 MCG capsule, , Disp: , Rfl: cetirizine (ZyrTEC) 10 MG tablet, daily., Disp: , Rfl: Cholecalciferol (Vitamin D) 125 MCG (5000 UT) capsule, , Disp: , Rfl: dihydroergotamine (DHE) 1 MG/ML injection, Infuse 1 mg into a venous catheter Once., Disp: , Rfl: eptinezumab (Vyepti) 100 MG/ML injection, Infuse 3 mL (300 mg) into a venous catheter Every 3 months., Disp: 3 mL, Rfl: 3 famotidine (Pepcid) 20 MG tablet, famotidine 20 mg tablet, Disp: , Rfl: levonorgestrel (Mirena, 52 MG,) 20 MCG/DAY IUD, 1 each by IntraUTERine route., Disp: , Rfl: linaCLOtide (Linzess) 145 MCG capsule, Take 145 mcg by mouth every morning (before breakfast). Do not crush or chew., Disp: , Rfl: Magnesium 500 MG capsule, , Disp: , Rfl: Methylcobalamin 1000 MCG sublingual tablet, Mecobalamin (Vitamin B12) Active 1000 MCG SL DAILY February 12, 2022 11:[address] tablet under tongue and allow to dissolve for at least30 secs before swallowing, Disp: , Rfl: omega-3 (fish oil) 1000 MG capsule, , Disp: , Rfl: onabotulinumtoxinA (Botox) 100 units injection, Botox 100 unit injection, Disp: , Rfl: pancrelipase, Bkc-Whrk-Ritb, (Zenpep) 13087-29285 units capsule delayed-release particles capsule, , Disp: , Rfl: pancrelipase, Owm-Sjxk-Svns, (Zenpep) 16031-620473 units capsule delayed-release particles capsule, , Disp: , Rfl: pantoprazole (ProtoNix) 40 MG EC tablet, pantoprazole 40 mg tablet,delayed release, Disp: , Rfl: suvorexant (Belsomra) 20 MG tablet, Take 1 tablet (20 mg) by mouth Nightly as needed for sleep. Do not start before February 19, 2024., Disp: 30 tablet, Rfl: 2 tiZANidine (Zanaflex) 4 MG tablet, Take 1 tablet (4 mg) by mouth every 6 hours as needed (neck pain)., Disp: 90 tablet, Rfl: 3 topiramate (Topamax) 100 MG tablet, Take 1 tablet (100 mg) by mouth Nightly., Disp: 90 tablet, Rfl: 3 Atogepant (Qulipta) 60 MG tablet, Take 1 tablet by mouth daily., Disp: 30 tablet, Rfl: 11 hydrOXYzine HCl (Atarax) 25 MG tablet, Take one or two tabs po at bedtime prn with suvorexant, Disp: 60 tablet, Rfl: 1 [START ON 12/17/2024] suvorexant (Belsomra) 20 MG tablet, Take 1 tablet (20 mg) by mouth Nightly as needed for sleep. Do not start before December 17, 2024., Disp: 30 tablet, Rfl: 2 Ubrogepant (Ubrelvy) 100 MG tablet, Take 1 tablet by mouth Daily as needed (migraine)., Disp: 10 tablet, Rfl: 11 Current Facility-Administered Medications: onabotulinumtoxinA (Botox) injection 200 Units, 200 Units, IntraMUSCular, Once, Lorenzo Lr MD Past Medical History: Diagnosis Date Jerome esophagus Cluster headache 2009 Gastroparesis Insomnia 2009 Memory loss 2020 Migraine Syncope 2020 Social History Tobacco Use Smoking status: Never Smokeless tobacco: Never Substance Use Topics Alcohol use: Not Currently Alcohol/week: 1.0 standard drink of alcohol Types: 1 Standard drinks or equivalent per week Past Surgical History: Procedure Laterality Date CHOLECYSTECTOMY ENDOSCOPY VISIT OUTPATIENT (HISTORICAL) OOPHORECTOMY Left PORTACATH PLACEMENT REMOVAL OF KIDNEY STONE (HISTORICAL) TUBAL LIGATION Family History Problem Relation Name Age of Onset Dementia Father Demario Robles Dementia Paternal Grandfather Nghia Travis Alzheimer's disease Paternal Grandmother Angel Sibley Parkinsonism Paternal Grandmother Angel Toñito Objective Vitals: BP 113/76 (BP Location: Left arm, Patient Position: Sitting, BP Cuff Size: Adult) Pulse 63 Ht 5' 2 (1.575 m) Wt 120 lb 9.6 oz (54.7 kg) BMI 22.06 kg/m General Appearance: Patient is in no apparent distress. Head is normocephalic, atraumatic Cardiovascular: Regular rate and rhythm. No heart murmurs. No carotid bruit Neurologic: Mentation: Alert and oriented x [address], [address] and time. Speech and Language: Speech and language normal Concentration and Attention: Concentration normal Memory: Memory normal Fund of Knowledge: Fund of knowledge normal Cranial Nerves: II, III, IV, V, , VII, VIII, IX, X, XI, XII examined and were intact. Motor: Strength: Strength 5 out of 5 with normal tone Alternating Movements: Normal Cogwheel Rigidity: None Tone: Tone is normal Tremor / Involuntary Movements: None Deep Tendon Reflexes: 1 out of 4 symmetrical in all four limbs. Coordination: Normal coordination upper and lower extremities Gait and Station: Station is normal. Gait is normal Data Reviewed and Summarized DIAGNOSTIC TESTING CBC: Lab Results Component Value Date WBC 5.3 03/26/2023 RBC 4.65 03/26/2023 HGB 12.9 03/26/2023 HCT 39.7 03/26/2023 MCV 85.3 03/26/2023 MCH 27.7 03/26/2023 MCHC 32.4 03/26/2023 RDW 13.8 03/26/2023 PLT 198 03/26/2023 MPV 7.9 03/26/2023 CMP: Lab Results Component Value Date NA 139 03/26/2023 K 3.7 03/26/2023 CL 109 (H) 03/26/2023 CO2 20 (L) 03/26/2023 BUN 15 03/26/2023 CREATININE 1.17 (H) 03/26/2023 GLUCOSE 139 (H) 03/26/2023 PROT 7.1 03/26/2023 CALCIUM 9.2 03/26/2023 BILITOT 0.6 03/26/2023 ALKPHOS 104 03/26/2023 AST 28 03/26/2023 ALT 24 03/26/2023 BMP: Lab Results Component Value Date NA 139 03/26/2023 K 3.7 03/26/2023 CL 109 (H) 03/26/2023 CO2 20 (L) 03/26/2023 BUN 15 03/26/2023 CREATININE 1.17 (H) 03/26/2023 CALCIUM 9.2 03/26/2023 GLUCOSE 139 (H) 03/26/2023 PT/INR: No results found for: PROTIME, INR PTT: No results found for: APTT, PTT[APTT} FLP: No results found for: CHLPL, TRIG, HDL, LDLCALC, LDLDIRECT TSH: No results found for: TSH VITAMIN B12: No results found for: [id number] No results found for: PHENYTOIN, PHENOBARB, VALPROATE, CBMZ No components found for: TOPIRA @RESULTINGLABINFO@ No results found for: LEVETIRACETA, FERRITIN, CRP, ARNEL, ANCA No results found for: ROB, IMMUNOGLOBUL, OLIGOBANDS No results found for: FPT36GP, HEPCAB No results found for: CRP, ANATITER, ANCA FERRITIN: No results found for: FERRITIN ---- MR brain w and wo contrast Narrative: Patient Name: AKIL MICHELLE : 1975 Exam Date/Time: 03/26/2023 12:17 Procedure: MR BRAIN W AND WO CONTRAST Ordering Provider: MCCALL MARVIN Reason For Exam: Seizure disorder, clinical change EXAMINATION: MRI BRAIN WITH AND WITHOUT CONTRAST, EPILEPSY PROTOCOL WITH DIFFUSION TENSOR IMAGING CLINICAL INDICATION: Seizures TECHNIQUE: Multi-planar multi-sequential MR imaging of the brain was performed before and after the administration of intravenous gadolinium based contrast, with special attention to the mesial temporal structures. Sequences include high resolution gapless T1 weighted (MPRAGE) and T2 weighted (SPACE) volumes. Fluid liquid attenuation inversion recovery (FLAIR) and Susceptibility weighted (SWI) sequences were also obtained. Additionally, diffusion tensor imaging (using 64 gradient directions) was acquired. Fractional Anisotropy (FA) and Apparent Diffusion Coefficient (ADC) were obtained after tensor reconstruction. COMPARISON: None available FINDINGS: LIMBIC SYSTEM: Hippocampi are symmetric in volume and signal. Internal hippocampal architecture is preserved. Fornices and mamillary bodies are within normal limits. No abnormal focal cortical thickening or blurring of hernandez-white differentiation. DTI: Fractional Anisotropy along dominant white matter bundles is preserved. No abnormal (hyperintense or hypointense) signal on ADC to suggest (increased or decreased) diffusivity. CORTEX: No evidence of heterotopia, cortical dysplasia, or acute infarction. WHITE MATTER: Punctate nonspecific focus of hyperintense signal on T2/FLAIR imaging within the subcortical right frontal lobe (series 6, image 94). MASS/VASCULAR LESION: None. REMOTE INJURY: No encephalomalacia or evidence of prior hemorrhage. VENTRICLES AND SULCI: Normal caliber of the ventricles and sulci. SKULL BASE: Normal appearance of the pituitary gland. Normal position of the cerebellar tonsils. EXTRACRANIAL STRUCTURES: Normal orbits. No extracranial soft tissue abnormalities. SINUSES/MASTOIDS: Clear BONES: No pathologic marrow infiltration. Impression: 1. Punctate nonspecific focus of hyperintense signal on T2/FLAIR imaging within the subcortical right frontal lobe 2. Otherwise, no potential epileptogenic focus is identified. Report Dictated on Electronically Signed By: Iam Granados Electronically Signed Date/Time: 03/31/2023 9:49 AM EDT IMPRESSION and PLAN: Diagnosis Plan 1. Primary insomnia suvorexant (Belsomra) 20 MG tablet 2. 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 With stress of her 's deployment she can take 50 mg of hydroxyzine. Continue DHE, Botox, Qulipta to control the migraine frequency. Continue prn Ubrelvy Lorenzo Lr MD I spent 30 minutes caring for this patient today, reviewing labs, records, seeing the patient, documenting in the record and arranging for studies. documented in this encounter [facility] 11-17-2024 Telephone encounter Note Name of caller: Kiley Contact phone number: [phone] Relationship to Patient: [facility] Provider: Dr Lr Practice: [facility] Chief Complaint/Reason for Call: Kiley with [facility] called in advising she was working on prior authorization for Ubrelvy for patient, and needs updated office visit notes faxed into her. States last OV notes she has are from 2022. Notes can be faxed in to them at [phone]. Please advise. Best time of day caller can be reached: any Patient advised that office/PCP has 24-48 business hours to return their call: N/A [facility] 11-17-2024 Telephone encounter Note will be primary starting 12/09. Will wait to complete pa [facility] 11-17-2024 Miscellaneous Notes will be primary starting 12/09. Will wait to complete pa Lm for patient to call the office back, please transfer her back to the office when she calls back. Shreya called our office back. PA needs submitted through [employer] Ph. [phone] Clinical information faxed over to Shreya at [phone] I called pt's insurance, PA is started. Ref # [id number] Shreya (brewery representative) needs clinical info faxed to [phone]. Patients new insurance requires Vyepti to be submitted to medical benefit, thank you! documented in this encounter [facility] 11-17-2024 Telephone encounter Note Lm for patient to call the office back, please transfer her back to the office when she calls back. [facility] 11-16-2024 Telephone encounter Note Shreya called our office back. PA needs submitted through [employer] Ph. [phone] [facility] 11-16-2024 Telephone encounter Note Clinical information faxed over to Shreya at [phone] [facility] 11-16-2024 Telephone encounter Note I called pt's insurance, PA is started. Ref # [id number] Shreya (brewery representative) needs clinical info faxed to [phone]. [facility] 11-11-2024 Telephone encounter Note Pt is rescheduled [facility] 11-11-2024 Miscellaneous Notes Pt is rescheduled Lm for patient to call the office back, please transfer her back to the office when she calls back. Name of Caller: Akil Contact Reason for Appointment: Pt has a botox procedure scheduled on 12/28/24 with [facility] and would like to reschedule that appointment. Please assist with rescheduling Office Name: Neurology Medication Refills need, if any: n/a Medication Name: n/a documented in this encounter [facility] 11-11-2024 Telephone encounter Note Lm for patient to call the office back, please transfer her back to the office when she calls back. [facility] 11-11-2024 Telephone encounter Note Name of Caller: Akil Contact Reason for Appointment: Pt has a botox procedure scheduled on 12/28/24 with [facility] and would like to reschedule that appointment. Please assist with rescheduling Office Name: Neurology Medication Refills need, if any: n/a Medication Name: n/a [facility] 11-09-2024 Telephone encounter Note Patients new insurance requires Vyepti to be submitted to medical benefit, thank you! [facility] 11-03-2024 History of Presen t illness Narrative Patient tolerated infusion well. Discharged home with Cosigned by Tanya Blanco MD at 11/03/2024 10:33 AM EST documented in this encounter [facility] 11-02-2024 History of Presen t illness Narrative Patient tolerated infusion well. Discharged home with Cosigned by Tanya Blanco MD at 11/03/2024 7:17 AM EST documented in this encounter [facility] 11-01-2024 History of Presen t illness Narrative Patient tolerated infusion well. Discharged home with Cosigned by Tanya Blanco MD at 11/02/2024 6:16 AM EST documented in this encounter [facility] 10-04-2024 History of Presen t illness Narrative Pt here for Vyepti every 12 weeks. Port accessed with brisk blood return. No labs ordered/drawn today. Assessment and plan of care reviewed. See toxicity assessment. Tolerated treatment well. Calendar updated and pt aware of next appointment. Port de accessed and pt discharged to home in no acute distress. documented in this encounter [facility] 10-04-2024 Telephone encounter Note Belsomra 20mg is showing available to order as of today. [facility] will order the medication with expected delivery date of 10/07. If we run into any issues we will communicate them [facility]. Rx has been pended. [facility] 10-04-2024 Miscellaneous Notes Belsomra 20mg is showing available to order as of today. [facility] will order the medication with expected delivery date of 10/07. If we run into any issues we will communicate them SAM[facility]ON. Rx has been pended. 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 Specifically reviewed possible risk of muscle weakness of face and neck, including but not limited to ptosis. All questions were answered, patient expressed understanding, verbal consent was given for procedure. Botox was injected with the parameters below: With the patient in sitting position, she received Botox injections in the neck and skull muscles. Patient receive the following doses: 1. R Frontalis 10 units 2. L Frontalis 10 units 3. R Cold Work Operator 10 units 4. L Cold Work Operator 10 units 5. R Temporalis 30 units 6. L Temporalis 30 units 7. R Occipitalis 30 units 8. L Occipitalis 30 units 9. R Trapezious 20 units 10.L Trapezious 20 units Total units injected 200 units. Units discarded 0 units. Comments: Botox is Buy and Bill [facility] [id number] [x] Pt tolerated procedure well. Pt advised to avoid exercise or strenuous physical activity for 24 hours. Post treatment expectations reviewed in detail. 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 Specifically reviewed possible risk of muscle weakness of face and neck, including but not limited to ptosis. All questions were answered, patient expressed understanding, verbal consent was given for procedure. Botox was injected with the parameters below: With the patient in sitting position, she received Botox injections in the neck and skull muscles. Patient receive the following doses: 1. R Frontalis 10 units 2. L Frontalis 10 units 3. R Cold Work Operator 10 units 4. L Cold Work Operator 10 units 5. R Temporalis 30 units 6. L Temporalis 30 units 7. R Occipitalis 30 units 8. L Occipitalis 30 units 9. R Trapezious 20 units 10.L Trapezious 20 units Total units injected 200 units. Units discarded 0 units. Comments: Botox is Buy and Bill [facility] [id number] [x] Pt tolerated procedure well. Pt advised to avoid exercise or strenuous physical activity for 24 hours. Post treatment expectations reviewed in detail. CHAD Stevenson CNP [facility] 09-29-2024 History of Presen t illness Narrative Patient tolerated infusion well. Discharged home with Cosigned by Tanya Blanco MD at 09/29/2024 11:46 AM EST documented in this encounter [facility] 09-28-2024 History of Presen t illness Narrative Patient tolerated infusion well. Discharged home with Cosigned by Tanya Blanco MD at 09/29/2024 6:31 AM EST documented in this encounter [facility] 09-27-2024 History of Presen t illness Narrative Patient tolerated infusion well. Discharged home with Cosigned by Tanya Blanco MD at 09/28/2024 6:15 AM EST documented in this encounter [facility] 08-26-2024 History of Presen t illness Narrative Patient tolerated infusion well. Discharged home with father. Cosigned by Tanya Blanco MD at 08/26/2024 12:39 PM EST documented in this encounter [facility] 08-25-2024 History of Presen t illness Narrative Patient tolerated infusion well. Discharged home with father. Cosigned by Tanya Blanco MD at 08/25/2024 10:24 AM EST documented in this encounter [facility] 08-24-2024 History of Presen t illness Narrative Patient tolerated infusion well. Discharged home with father. Cosigned by Tanya Blanco MD at 08/26/2024 6:27 AM EST documented in this encounter [facility] 08-10-2024 Telephone encounter Note Pt requested refills of Hydroxyzine and Promethazine be sent to [facility] 08-10-2024 Miscellaneous Notes Pt requested refills of Hydroxyzine and Promethazine be sent to [facility] documented in this encounter [facility] 07-28-2024 History of Presen t illness Narrative Patient tolerated infusion well. Discharged home with documented in this encounter [facility] 07-27-2024 History of Presen t illness Narrative Patient tolerated infusion well. Discharged home with documented in this encounter [facility] 07-26-2024 History of Presen t illness Narrative Patient tolerated infusion well. Discharged home with documented in this encounter [facility] 07-12-2024 History of Presen t illness Narrative DEPARTMENT OF NEUROLOGY BOTOX PROCEDURE NOTE FOR HEADACHE Date: 07/12/2024 Patient: Akil Michelle : 1975 Diagnosis: 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 [G43.419] Procedure: Botulinum toxin injections for migraine Prior to procedure risks, benefits, alternatives, and potential side effects were reviewed with patient. Specifically reviewed possible risk of muscle weakness of face and neck, including but not limited to ptosis. All questions were answered, patient expressed understanding, verbal consent was given for procedure. Botox was injected with the parameters below: With the patient in sitting position, she received Botox injections in the neck and skull muscles. Patient receive the following doses: 1. R Frontalis 10 units 2. L Frontalis 10 units 3. R Cold Work Operator 10 units 4. L Cold Work Operator 10 units 5. R Temporalis 30 units 6. L Temporalis 30 units 7. R Occipitalis 30 units 8. L Occipitalis 30 units 9. R Trapezious 20 units 10.L Trapezious 20 units Total units injected 200 units. Units discarded 0 units. Comments: Botox is Farhan [facility] [id number] [x] Pt tolerated procedure well. Pt advised to avoid exercise or strenuous physical activity for 24 hours. Post treatment expectations reviewed in detail. CHAD Stevenson CNP documented in this encounter [facility] 07-12-2024 Note DEPARTMENT OF NEUROL MARY BOTOX PROCEDURE NOTE FOR HEADACHE Date: 07/12/2024 Patient: Akil Michelle : 1975 Diagnosis: 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 [G43.419] Procedure: Botulinum toxin injections for migraine Prior to procedure risks, benefits, alternatives, and potential side effects were reviewed with patient. Specifically reviewed possible risk of muscle weakness of face and neck, including but not limited to ptosis. All questions were answered, patient expressed understanding, verbal consent was given for procedure. Botox was injected with the parameters below: With the patient in sitting position, she received Botox injections in the neck and skull muscles. Patient receive the following doses: 1. R Frontalis 10 units 2. L Frontalis 10 units 3. R Cold Work Operator 10 units 4. L Cold Work Operator 10 units 5. R Temporalis 30 units 6. L Temporalis 30 units 7. R Occipitalis 30 units 8. L Occipitalis 30 units 9. R Trapezious 20 units 10.L Trapezious 20 units Total units injected 200 units. Units discarded 0 units. Comments: Botox is Farhan [facility] [id number] [x] Pt tolerated procedure well. Pt advised to avoid exercise or strenuous physical activity for 24 hours. Post treatment expectations reviewed in detail. CHAD Stevenson CNP [facility] 07-12-2024 History of Presen t illness Narrative Pt. Here for vyepti infusion, labs were not ordered. 1218-Ordered treatment completed. Patient discharged without any issues. Patient has a copy of next infusion appointment and verbalizes understanding. All questions answered. documented in this encounter [facility] 07-12-2024 History of Presen t illness Narrative Pt. Here for vyepti infusion, labs were not ordered. 1218-Ordered treatment completed. Patient discharged without any issues. Patient has a copy of next infusion appointment and verbalizes understanding. All questions answered. documented in this encounter [facility] 06-24-2024 History of Presen t illness Narrative Patient tolerated infusion well. Discharged home with documented in this encounter [facility] 06-23-2024 History of Presen t illness Narrative Patient tolerated infusion well. Discharged home with documented in this encounter [facility] 06-22-2024 History of Presen t illness Narrative Patient tolerated infusion well. Discharged home with documented in this encounter [facility] 06-14-2024 Telephone encounter Note Refills for Hydroxyzine sent [facility] 06-14-2024 Miscellaneous Notes Refills for Hydroxyzine sent documented in this encounter [facility] 06-01-2024 Telephone encounter Note Patient has been rescheduled [facility] 06-01-2024 Miscellaneous Notes Patient has been rescheduled Name of Caller: Akil Contact Reason for Appointment: Patient's Botox was rescheduled for 06-07-2024 at 12:30pm - patient apologizes but due to transportation would like to be rescheduled for 06/14 or 06/15 anytime/any provider. Patient has given permission to text new appointment and again apologizes Office Name: Neuro Medication Refills need, if any: na Medication Name: na Patient has been rescheduled Name of Caller: Akil Contact Reason for Appointment: Akil called to reschedule her botox on 06/16/24. Her is being deployed and she is unavailable that day. Please call to reschedule. Please advise. Office Name: Neuro documented in this encounter [facility] 06-01-2024 Telephone encounter Note Name of Caller: Akil Contact Reason for Appointment: Patient's Botox was rescheduled for 06-07-2024 at 12:30pm - patient apologizes but due to transportation would like to be rescheduled for 06/14 or 06/15 anytime/any provider. Patient has given permission to text new appointment and again apologizes Office Name: Neuro Medication Refills need, if any: na Medication Name: na [facility] 06-01-2024 Telephone encounter Note Patient has been rescheduled [facility] 05-31-2024 Telephone encounter Note Name of Caller: Akil Contact Reason for Appointment: Akil called to reschedule her botox on 06/16/24. Her is being deployed and she is unavailable that day. Please call to reschedule. Please advise. Office Name: Neuro [facility] 05-12-2024 History of Presen t illness Narrative Patient tolerated infusion well. Discharged home with documented in this encounter [facility] 05-11-2024 History of Presen t illness Narrative Patient tolerated infusion well. Discharged home with documented in this encounter [facility] 05-10-2024 History of Presen t illness Narrative Patient tolerated infusion well. Discharged home with documented in this encounter [facility] 04-21-2024 Telephone encounter Note Patient has been rescheduled [facility] 04-21-2024 Miscellaneous Notes Patient has been rescheduled Name of caller: Akil Contact phone number: [phone] Relationship to Patient: patient Provider: Lorenzo Lr MD Practice: [facility] Chief Complaint/Reason for Call: Patient is requesting a call back to reschedule 05/07/24 Botox procedure. Please advise. Best time of day caller can be reached: Any Patient advised that office/PCP has 24-48 business hours to return their call: N/A documented in this encounter [facility] 04-21-2024 Telephone encounter Note Name of caller: Akil Contact phone number: [phone] Relationship to Patient: patient Provider: Lorenzo Lr MD Practice: [facility] Chief Complaint/Reason for Call: Patient is requesting a call back to reschedule 05/07/24 Botox procedure. Please advise. Best time of day caller can be reached: Any Patient advised that office/PCP has 24-48 business hours to return their call: N/A [facility] 04-08-2024 Note Formatting of this n ote might be different from the original. April 08, 2024 PID: [id number] Akil Michelle [address] [place] [address] Dear Ms. Michelle, We are pleased to inform you that the results of your recent breast imaging exam on 04/08/2024 are normal. Early detection of cancer is very important. We also understand recommendations regarding breast cancer screening are controversial. Please discuss with your primary care provider which strategy is best for you and whether a mammogram is right for you. Your imaging studies and report will be kept on file at [facility] as part of your permanent medical record and are available for your continuing care. Thank you for allowing us to help in meeting your health care needs. Sincerely, Dr. Bailey Interpreting Radiologist [facility] (Normal over 40) [facility] 04-08-2024 Miscellaneous Notes April 08, 2024 PID: [id number] Akil Michelle [address] [place] [address] Dear Ms. Michelle, We are pleased to inform you that the results of your recent breast imaging exam on 04/08/2024 are normal. Early detection of cancer is very important. We also understand recommendations regarding breast cancer screening are controversial. Please discuss with your primary care provider which strategy is best for you and whether a mammogram is right for you. Your imaging studies and report will be kept on file at [facility] as part of your permanent medical record and are available for your continuing care. Thank you for allowing us to help in meeting your health care needs. Sincerely, Dr. Bailey Interpreting Radiologist [facility] (Normal over 40) documented in this encounter [facility] 04-08-2024 History of Presen t illness Narrative Radiology Service Progress Note PATIENT NAME: Akil Michelle DATE OF SERVICE: April 08, 2024 TIME: 9:17 AM PATIENT IDENTITY VERIFICATION COMPLETED USING TWO (2) IDENTIFIERS: Name and Date of confirmed by patient verbally. FALL SCREENING: Has the patient had 2 falls in the last year or 1 fall with injury or currently using an Ambulatory Assistive Device (Walker, Cane, Wheelchair, Crutches, etc.)? No PATIENT GENDER DATA: Female. status: : No status: NO. PATIENT RELEVANT IMPLANT DATA REVIEWED: Not Applicable PATIENT PRESENTS WITH AN IMPLANTABLE OR ATTACHED CHIEF CATALYST OPERATOR: No RADIOLOGY DEPARTMENT: Mammography PERIPHERAL IV DATA: Not applicable SIGNED BY: Arianne Spence April 08, 2024 9:17 AM documented in this encounter [facility] 04-08-2024 Note HNO ID: [id number] Author: KIEL CALDERA Mammo Tech Service: ? Author Type: Nurse Assistant Type: Progress Notes Filed: 04/08/2024 09:17 Note Text: Radiology Service Progress Note PATIENT NAME: Akil Michelle DATE OF SERVICE: April 08, 2024 TIME: 9:17 AM PATIENT IDENTITY VERIFICATION COMPLETED USING TWO (2) IDENTIFIERS: Name and Date of confirmed by patient verbally. FALL SCREENING: Has the patient had 2 falls in the last year or 1 fall with injury or currently using an Ambulatory Assistive Device (Walker, Cane, Wheelchair, Crutches, etc.)? No PATIENT GENDER DATA: Female. status: : No status: NO. PATIENT RELEVANT IMPLANT DATA REVIEWED: Not Applicable PATIENT PRESENTS WITH AN IMPLANTABLE OR ATTACHED CHIEF CATALYST OPERATOR: No RADIOLOGY DEPARTMENT: Mammography PERIPHERAL IV DATA: Not applicable SIGNED BY: Kiel Caldera [employer] April 08, 2024 9:17 AM [facility] 04-08-2024 Telephone encounter Note Last ov-02/06/24 Next ov- 05/07/24 [facility] 04-08-2024 Miscellaneous Notes Last ov-02/06/24 Next ov- 05/07/24 documented in this encounter [facility] 04-05-2024 Telephone encounter Note Received message pt needs work letter for 03/26/2024. Sent via [employer]. [facility] 04-05-2024 Miscellaneous Notes Received message pt needs work letter for 03/26/2024. Sent via [employer]. documented in this encounter [facility] 04-05-2024 History of Presen t illness Narrative Pt. Here for vyepti infusion, labs were not ordered. 1502-Ordered treatment completed. Patient discharged without any issues. Patient has a copy of next infusion appointment and verbalizes understanding. All questions answered. documented in this encounter [facility] 03-25-2024 History of Presen t illness Narrative Patient tolerated infusion well. Discharged home with documented in this encounter [facility] 03-24-2024 History of Presen t illness Narrative Patient tolerated infusion well. Discharged home with father. documented in this encounter [facility] 03-23-2024 History of Presen t illness Narrative Patient tolerated infusion well. Discharged home with father. 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 Specifically reviewed possible risk of muscle weakness of face and neck, including but not limited to ptosis. All questions were answered, patient expressed understanding, verbal consent was given for procedure. Botox was injected with the parameters below: With the patient in sitting position, she received Botox injections in the neck and skull muscles. Patient receive the following doses: 1. R Frontalis 10 units 2. L Frontalis 10 units 3. R Cold Work Operator 10 units 4. L Cold Work Operator 10 units 5. R Temporalis 30 units 6. L Temporalis 30 units 7. R Occipitalis 30 units 8. L Occipitalis 30 units 9. R Trapezious 20 units 10.L Trapezious 20 units Total units injected 200 units. Units discarded 0 units. [facility]: [id number] Lot#: [id number] Commentary: She reports that the Botox and the DHE protocol and the Qulipta and the prn Ubrelvy are keeping her migraines down to 12 days per month, which is half of what they used to be. No ER visits for migraines . She reports that she has minor headaches every day. Filled Written ID Drug QTY Days Prescriber RX # Dispenser Refill Daily Dose* Pymt Type CLIENT REPRESENTATIVE 01/20/2024 01/15/2024 1 Belsomra 20 Mg Tablet 30.00 30 Me Usp [id number] Sum (5582) 0 0.40 [employer] [facility] [place] 12/22/2023 10/16/2023 1 Belsomra 20 Mg Tablet 30.00 30 Me Usp [id number] Sum (5582) 2 0.40 [employer] [place] 11/19/2023 10/16/2023 1 Belsomra 20 Mg Tablet 30.00 30 Me Usp [id number] Sum (5582) 1 0.40 [employer] [place] 10/17/2023 10/16/2023 1 Belsomra 20 Mg Tablet 30.00 30 Me Usp [id number] Sum (5582) 0 0.40 [employer] [place] 09/22/2023 06/24/2023 1 Belsomra 20 Mg Tablet 30.00 30 Ja Bav [id number] Sum (5582) 2 0.40 [employer] [place] 08/20/2023 06/24/2023 1 Belsomra 20 Mg Tablet 30.00 30 Ja Bav [id number] Sum (5582) 1 0.40 [employer] [place] [x] Pt tolerated procedure well. Pt advised to avoid exercise or strenuous physical activity for 24 hours. Post treatment expectations reviewed in detail. LORENZO LR MD documented in this encounter [facility] 02-04-2024 History of Presen t illness Narrative Patient tolerated infusion well. Discharged home with documented in this encounter [facility] 02-02-2024 History of Presen t illness Narrative Port flushed with hep lock solution with good blood return Patient tolerated infusion well. Discharged home with documented in this encounter [facility] 01-28-2024 Telephone encounter Note To pharmacy: I know she is on Belsomra, this is prn [facility] 01-28-2024 Miscellaneous Notes To pharmacy: I know she is on Belsomra, this is prn documented in this encounter [facility] 01-05-2024 History of Presen t illness Narrative Pt. Here for vyepti infusion, labs were not ordered. 1507-Ordered treatment completed. Patient discharged without any issues. Patient has a copy of next infusion appointment and verbalizes understanding. All questions answered. documented in this encounter [facility] 01-05-2024 Telephone encounter Note Last ov- 11/12/23 Next ov-02/06/24 [facility] 01-05-2024 Miscellaneous Notes Last ov- 11/12/23 Next ov-02/06/24 documented in this encounter [facility] 12-31-2023 History of Presen t illness Narrative Patient tolerated infusion well. Discharged home with father. documented in this encounter [facility] 12-30-2023 History of Presen t illness Narrative Patient tolerated infusion well. Discharged home with documented in this encounter [facility] 12-29-2023 History of Presen t illness Narrative Patient tolerated infusion well. Discharged home with documented in this encounter [facility] 12-23-2023 Telephone encounter Note Name of caller: Deana Contact phone number: [phone] Relationship to Patient: [facility] Provider: Dr. Lr Practice: [facility] Chief Complaint/Reason for Call: [facility] is requesting tried and fail for aimovig and ajovy prior to starting on Vyepti. She also needs to know if the Vyepti will be a cruze with Qulipta. Fax number is [phone]. Please advise. Best time of day caller can be reached: any Patient advised that office/PCP has 24-48 business hours to return their call: Yes [facility] 12-23-2023 Miscellaneous Notes Name of caller: Deana Contact phone number: [phone] Relationship to Patient: Melarosa Provider: Dr. Lr Practice: [facility] Chief Complaint/Reason for Call: Franca is requesting tried and fail for aimovig and ajovy prior to starting on Vyepti. She also needs to know if the Vyepti will be a cruze with Qulipta. Fax number is [phone]. Please advise. Best time of day caller can be reached: any Patient advised that office/PCP has 24-48 business hours to return their call: Yes documented in this encounter [facility] 12-11-2023 Note HNO ID: [id number] Author: ANT XAVIER MD Service: ? Author Type: Physician Type: Progress Notes Filed: 12/11/2023 12:14 Note Text: First Leveler offered: Patient declines. Brown is a 48 year old who presents for an annual gynecologic exam without complaints. Menses: no menses - Mirena IUD. 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 Xavier INSERTION OF IUD 06/15/2020 Mirena IUD insertion LAP CHOLECYSTECT/CHOLANGIOGRAPHY 10-20-15 LAPAROSCOPY DIAGNOSTIC 09/21/2020 LIGATE FALLOPIAN TUBE Tubal ligation PAST SURGICAL HISTORY OF kidney stone removal and stent PAST SURGICAL HISTORY OF fissurectomy PLASTIC SURG - PACKAGE 11/2013 most recent x4- facial nerves for headaches PORT port placed 11/2018 REMOVAL OF OVARY(S) Left 09/21/2020 Left oophorectomy-Dr. Xavier SALPINGECTOMY Bilateral 09/21/2020 Dr. Xavier FAMILY HISTORY Problem Relation Age of Onset None Mother other (endometriosis) Mother Heart Father Breast Cancer Maternal Grandmother Heart Maternal Grandfather SOCIAL HISTORY Social History Tobacco Use Smoking status: Never Smokeless tobacco: Never Substance Use Topics Alcohol use: No Drug use: No Comment: very little REVIEW OF SYSTEMS Abdomen: No abdominal pain, nausea, vomiting, diarrhea, or constipation. No bloating, early satiety, indigestion, or increased flatulence. Bladder: No dysuria, gross hematuria, urinary frequency, urinary urgency, or incontinence. Breast: No breast lumps, nipple d/c, overlying skin changes, redness or skin retraction. Allergies and current medication updated:Yes EXAM: LMP 06/15/2020 GENERAL: pleasant, female in no apparent distress HEENT: Normocephalic and atraumatic NECK: full range of motion DERMATOLOGY: Normal, without lesions, non-icteric, and non-hirsute BREAST: soft, non-tender, symmetric, no dominant mass, normal nipple-areolar complex, no lymphadenopathy, and no nipple discharge CHEST: Normal inspiratory effort ABDOMEN: soft, non-tender, and no masses PELVIC: external genitalia atrophy, normal Bartholin's glands, urethra, Toughkenamon's glands, no vulvar lesions, no cervical lesions, good vaginal support, physiologic discharge present, normal appearing perineal body and perianal region BIMANUAL: uterus normal size, shape and consistency, no adnexal masses, and non-tender RECTOVAGINAL: deferred. NEURO: exam grossly non-focal EXTREMITIES: normal ASSESSMENT/PLAN: 1) Health maintenance: Pap/HPV up to date. Mammogram ordered. Nutrition, exercise and routine health maintenance exams reviewed. Vaginal atrophy and dryness: Start vaginal estrogen cream. 2) Contraception: IUD and tubal sterilization. Contraceptive options reviewed and information provided. 3) STD screening: Declined STD check. 4) Follow up one year or sooner as needed Ant Xavier DO [facility] 12-11-2023 History of Presen t illness Narrative First Leveler offered: Patient declines. Akil is a 48 year old who presents for an annual gynecologic exam without complaints. Menses: no menses - Mirena IUD. 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 Xavier INSERTION OF IUD 06/15/2020 Mirena IUD insertion LAP CHOLECYSTECT/CHOLANGIOGRAPHY 10-20-15 LAPAROSCOPY DIAGNOSTIC 09/21/2020 LIGATE FALLOPIAN TUBE Tubal ligation PAST SURGICAL HISTORY OF kidney stone removal and stent PAST SURGICAL HISTORY OF fissurectomy PLASTIC SURG - PACKAGE 11/2013 most recent x4- facial nerves for headaches PORT port placed 11/2018 REMOVAL OF OVARY(S) Left 09/21/2020 Left oophorectomy-Dr. Xavier SALPINGECTOMY Bilateral 09/21/2020 Dr. Xavier FAMILY HISTORY Problem Relation Age of Onset None Mother other (endometriosis) Mother Heart Father Breast Cancer Maternal Grandmother Heart Maternal Grandfather SOCIAL HISTORY Social History Tobacco Use Smoking status: Never Smokeless tobacco: Never Substance Use Topics Alcohol use: No Drug use: No Comment: very little REVIEW OF SYSTEMS Abdomen: No abdominal pain, nausea, vomiting, diarrhea, or constipation. No bloating, early satiety, indigestion, or increased flatulence. Bladder: No dysuria, gross hematuria, urinary frequency, urinary urgency, or incontinence. Breast: No breast lumps, nipple d/c, overlying skin changes, redness or skin retraction. Allergies and current medication updated:Yes EXAM: LMP 06/15/2020 GENERAL: pleasant, female in no apparent distress HEENT: Normocephalic and atraumatic NECK: full range of motion DERMATOLOGY: Normal, without lesions, non-icteric, and non-hirsute BREAST: soft, non-tender, symmetric, no dominant mass, normal nipple-areolar complex, no lymphadenopathy, and no nipple discharge CHEST: Normal inspiratory effort ABDOMEN: soft, non-tender, and no masses PELVIC: external genitalia atrophy, normal Bartholin's glands, urethra, Toughkenamon's glands, no vulvar lesions, no cervical lesions, good vaginal support, physiologic discharge present, normal appearing perineal body and perianal region BIMANUAL: uterus normal size, shape and consistency, no adnexal masses, and non-tender RECTOVAGINAL: deferred. NEURO: exam grossly non-focal EXTREMITIES: normal ASSESSMENT/PLAN: 1) Health maintenance: Pap/HPV up to date. Mammogram ordered. Nutrition, exercise and routine health maintenance exams reviewed. Vaginal atrophy and dryness: Start vaginal estrogen cream. 2) Contraception: IUD and tubal sterilization. Contraceptive options reviewed and information provided. 3) STD screening: Declined STD check. 4) Follow up one year or sooner as needed Ant Xavier DO documented in this encounter [facility] 12-03-2023 History of Presen t illness Narrative Patient tolerated infusion well. Discharged home with documented in this encounter [facility] 12-02-2023 History of Presen t illness Narrative Patient tolerated infusion well. Discharged home with documented in this encounter [facility] 12-01-2023 History of Presen t illness Narrative Patient tolerated infusion well. Discharged home with documented in this encounter [facility] 11-27-2023 Telephone encounter Note Last ov- 11/12/23 Next ov- 02/06/24 [facility] 11-27-2023 Miscellaneous Notes Last ov- 11/12/23 Next ov- 02/06/24 documented in this encounter [facility] 11-12-2023 History of Presen t illness Narrative DEPARTMENT OF NEUROLOGY BOTOX PROCEDURE NOTE FOR HEADACHE Patient: Akil Mcihelle : 1975 Diagnosis: 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 [G43.419] Procedure: Botulinum toxin injections for migraine Prior to procedure risks, benefits, alternatives, and potential side effects were reviewed with patient. Specifically reviewed possible risk of muscle weakness of face and neck, including but not limited to ptosis. All questions were answered, patient expressed understanding, verbal consent was given for procedure. Botox was injected with the parameters below: With the patient in sitting position, she received Botox injections in the neck and skull muscles. Patient receive the following doses: 1. R Frontalis 10 units 2. L Frontalis 10 units 3. R Cold Work Operator 10 units 4. L Cold Work Operator 10 units 5. R Temporalis 30 units 6. L Temporalis 30 units 7. R Occipitalis 30 units 8. L Occipitalis 30 units 9. R Trapezious 20 units 10.L Trapezious 20 units Total units injected 200 units. Units discarded 0 units. [facility]: 1147-2190-12 Lot#: [id number] [x] Pt tolerated procedure well. Pt advised to avoid exercise or strenuous physical activity for 24 hours. Post treatment expectations reviewed in detail. LORENZO LR MD documented in this encounter [facility] 11-05-2023 History of Presen t illness Narrative Patient tolerated infusion well. Discharged home with documented in this encounter [facility] 11-04-2023 History of Presen t illness Narrative Port flushed with hep lock solution with good blood return and DC IV. Discharged home with father documented in this encounter [facility] 11-03-2023 History of Presen t illness Narrative Flushed with heparin flush solution with good blood return. Port de-accessed, dressing applied. Patient discharged home with father documented in this encounter [facility] 10-10-2023 History of Presen t illness Narrative Patient tolerated infusion well. Discharged home with documented in this encounter [facility] 10-09-2023 History of Presen t illness Narrative Flushed with hep lock solution and dc, Band-Aid applied Patient tolerated infusion well. Discharged home with daughter documented in this encounter [facility] 10-08-2023 History of Presen t illness Narrative Patient tolerated infusion well. Discharged home with documented in this encounter [facility] 10-06-2023 History of Presen t illness Narrative Pt. Here for vyepti infusion, labs were not ordered. 1440- Ordered treatment completed. Patient discharged without any issues. Patient has a copy of next infusion appointment and verbalizes understanding. All questions answered. documented in this encounter [facility] 09-09-2023 History of Presen t illness Narrative Patient tolerated infusion well. Discharged home with documented in this encounter [facility] 09-08-2023 Miscellaneous Notes Addended by: ISIDRO DELEON on: 09/19/2023 11:25 AM Modules accepted: Orders documented in this encounter [facility] 09-08-2023 Note Addended by: ISIDRO DELEON on: 09/19/2023 11:25 AM Modules accepted: Orders [facility] 09-08-2023 Note Addended by: ISIDRO DELEON on: 09/19/2023 11:25 AM Modules accepted: Orders [facility] 09-08-2023 History of Presen t illness Narrative Patient tolerated infusion well. 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 Specifically reviewed possible risk of muscle weakness of face and neck, including but not limited to ptosis. All questions were answered, patient expressed understanding, verbal consent was given for procedure. Botox was injected with the parameters below: With the patient in sitting position, she received Botox injections in the neck and skull muscles. Patient receive the following doses: 1. R Frontalis 10 units 2. L Frontalis 10 units 3. R Cold Work Operator 10 units 4. L Cold Work Operator 10 units 5. R Temporalis 30 units 6. L Temporalis 30 units 7. R Occipitalis 30 units 8. L Occipitalis 30 units 9. R Trapezious 20 units 10.L Trapezious 20 units Total units injected 200 units. Units discarded 0 units. Comments: Botox is Farhat and Bill [facility] [id number] [x] Pt tolerated procedure well. Pt advised to avoid exercise or strenuous physical activity for 24 hours. Post treatment expectations reviewed in detail. CHAD Spear CNP documented in this encounter [facility] 08-07-2023 History of Presen t illness Narrative Patient tolerated infusion well. Discharged home with . documented in this encounter [facility] 08-06-2023 History of Presen t illness Narrative Patient tolerated infusion well. Discharged home with . documented in this encounter [facility] 08-05-2023 Telephone encounter Note Last ov- 04/08/23 Next ov- n/a [facility] 08-05-2023 Miscellaneous Notes Last ov- 04/08/23 Next ov- n/a documented in this encounter [facility] 07-14-2023 History of Presen t illness Narrative Pt here for vyepti infusion, labs were not ordered. 1220-Ordered treatment completed. Patient discharged without any issues. Patient has a copy of next infusion appointment and verbalizes understanding. All questions answered. documented in this encounter [facility] 07-04-2023 History of Presen t illness Narrative Pt. Is here for Vyepti infusion, labs were not ordered. Pt has strep throat currently, she is being treated with a zpack and has a soar throat. Pt was rescheduled for 07/14/23 1055- Patient discharged without any issues. Patient has a copy of next infusion appointment and verbalizes understanding. All questions answered. documented in this encounter [facility] 06-24-2023 Telephone encounter Note Rx sent in [facility] 06-24-2023 Miscellaneous Notes Rx sent in Last ov- 04/08/23 Next ov- 08/05/23 documented in this encounter [facility] 06-24-2023 Telephone encounter Note Last ov- 04/08/23 Next ov- 08/05/23 [facility] 06-17-2023 History of Presen t illness Narrative See medication administration sheet scanned under media documented in this encounter [facility] 06-16-2023 History of Presen t illness Narrative See scanned medication administration record scanned under media documented in this encounter [facility] 05-16-2023 History of Presen t illness Narrative See scanned medication administration record in media documented in this encounter [facility] 05-15-2023 History of Presen t illness Narrative Please see medication administration record under media tab documented in this encounter [facility] 05-14-2023 History of Presen t illness Narrative See medication administration record scanned in media documented in this encounter [facility] 05-02-2023 Telephone encounter Note Spoke to Elen at [facility] no auth required for CPT code 86401 [facility] 05-02-2023 Miscellaneous Notes Spoke to Elen at [facility] no auth required for CPT code 86851 documented in this encounter [facility] 04-24-2023 Telephone encounter Note [facility] Neurology Care Plan [facility], I spoke with Akil today regarding her PETER/migraine management. She reports that the Ubrelvy helps better than anything else that she has tried in the past, but it still only helps a little bit. She feels that her gastroparesis is affecting the absorption since it is oral. What are your thoughts on Zavzpret the new intranasal formulation to avoid GI? Adam Cotton, PharmD Clinical Neurology Pharmacist [facility] 04-24-2023 Miscellaneous Notes [facility] Neurology Care Plan [facility], I spoke with Akil today regarding her PETER/migraine management. She reports that the Ubrelvy helps better than anything else that she has tried in the past, but it still only helps a little bit. She feels that her gastroparesis is affecting the absorption since it is oral. What are your thoughts on Zavzpret the new intranasal formulation to avoid GI? 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 Specifically reviewed possible risk of muscle weakness of face and neck, including but not limited to ptosis. All questions were answered, patient expressed understanding, verbal consent was given for procedure. Botox was injected with the parameters below: With the patient in sitting position, she received Botox injections in the neck and skull muscles. Patient receive the following doses: 1. R Frontalis 10 units 2. L Frontalis 10 units 3. R Cold Work Operator 10 units 4. L Cold Work Operator 10 units 5. R Temporalis 30 units 6. L Temporalis 20 units 7. R Occipitalis 30 units 8. L Occipitalis 30 units 9. R Trapezious 20 units 10.L Trapezious 20 units Total units injected 190 units. Units discarded 10 units. [facility]: [id number] Lot#: [id number] Patient Supplied?: Yes Comments: She is still having greater than 20 migraine days per month but they are less severe. Belsomra is helping her sleep much better. [x] Pt tolerated procedure well. Pt advised to avoid exercise or strenuous physical activity for 24 hours. Post treatment expectations reviewed in detail. LORENZO LR MD documented in this encounter [facility] 04-04-2023 History of Presen t illness Narrative Refill documented in this encounter [facility] 04-01-2023 History of Presen t illness Narrative Pt. Here for Vyepti infusion, labs were not ordered. 1409-Ordered treatment completed. Patient discharged without any issues. Patient has a copy of next infusion appointment and verbalizes understanding. All questions answered. documented in this encounter [facility] 04-01-2023 History of Presen t illness Narrative Pt. Here for Vyepti infusion, labs were not ordered. 1409-Ordered treatment completed. Patient discharged without any issues. Patient has a copy of next infusion appointment and verbalizes understanding. All questions answered. documented in this encounter [facility] 03-26-2023 Nurse Note Patient in MRI for a brain study. Patient has a right upper chest port. Port was accessed per [facility] policy using a 20G. 1 em needle. Flushed with 0.9% Sodium Chloride. Flushes easily with good blood return.Clear dressing applied. [facility] 03-26-2023 Nurse Note Patient in MRI for a brain study. Patient has a right upper chest port. Port was accessed per [facility] policy using a 20G. 1 em needle. Flushed with 0.9% Sodium Chloride. Flushes easily with good blood return.Clear dressing applied. documented in this encounter [facility] 03-24-2023 Telephone encounter Note Called patient to remind her about MRI and EMU stay this March 26. Patient confirmed she will be there. [facility] 03-24-2023 Miscellaneous Notes Called patient to remind her about MRI and EMU stay this March 26. Patient confirmed she will be there. documented in this encounter [facility] 03-24-2023 Telephone encounter Note Last ov- 02/03/23 Next ov- 04/08/23 [facility] 03-24-2023 Miscellaneous Notes Last ov- 02/03/23 Next ov- 04/08/23 documented in this encounter [facility] 02-05-2023 Telephone encounter Note . [facility] 02-05-2023 Miscellaneous Notes . Name of Caller: Akil Contact Reason for Call: Patient is to have 48hr study is to be done she had read that someone should stay with her during this study? if that is true she needs something for her stating that it is needed to have someone there so he can have the FMLA request approved Office Name: Neuro documented in this encounter [facility] 02-05-2023 Telephone encounter Note Name of Caller: Akil Contact Reason for Call: Patient is to have 48hr study is to be done she had read that someone should stay with her during this study? if that is true she needs something for her stating that it is needed to have someone there so he can have the FMLA request approved Office Name: Neuro [facility] 02-03-2023 History of Presen t illness Narrative Images from the original note were not included. Department of Neurological Sciences Section of Epilepsy [facility] [address] [facility] [address] Dept: [phone] Dept Loc: [phone] . Visit type: follow-up Reason for Visit: New Patient (Ref Dr. Lr/ Syncope and collapse) She had originally seen at [facility] for migraine headaches transitioned to Dr. Basurto. Objective HPI Akil Michelle is a 47 y.o. right handed female with a past medical history significant for gastroparesis, migraines since age 14 (worsening 21 years ago after the of her son) and hemiplegic migraines (described as challenges forming words/speaking words, paresis [arm and leg]) from days to a week recurring 1-2 times every 6-12 months, and seizure-like spells/syncope (first spell occurring 7 years ago) +/- without worsening headaches with LOC and confusion lasting up to 5 minutes, recurring up to several times over a 6 month period. She completed an hour extended EEG, and 2 day ambulatory EEG. She reports her most recent spell occurred one day ago. This last spells occurred while she was in bed. She can be found laying on the floor. In nov, while in a hotel in [place], she fell to the floor and not responding for seconds to several minutes. She denies warning signs, palpitations, CP. However, while wearing a heart monitor (24-hours) no positive findings were discovered. Of note, she recalls feeling the onset of a spell while in a grocery store 8 months ago immediately going to the car. She felt a similar episode when going to a winery several years ago. She denies drinking often. She denies associating ETOH with spells. Her last event occurred yesterday due to weather change improved today. Of note, her post-ictal period feels different (regarding fogginess) compared with a migraine headache. She also reports recent memory impairment with family history of dementia (Dad is 73 with beginning stages of 'dementia', and fathers two sons with dementia and PD in the family. She completed an MRI several years ago at [facility] with normal findings per patient. 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 Her last MRI was completed 5-6 years ago. She is currently weaning off clonazepam due to her gastroparesis worsened by CLZ. Seizure Risk Factors: 1. Head trauma (no); 2. COMPUTING SYSTEMS MECHANIC infections (no); 3. Family history of seizures (no); 4. Developmental delay (no); 5. Febrile seizures (no); 6. COMPUTING SYSTEMS MECHANIC tumors (no); 7. COMPUTING SYSTEMS MECHANIC vascular disease (no); 8. Significant medical history: depression/anxiety (no); 9. and early development: normal and early development Family Composition: NAME RELATIONSHIP GENDER LIVING IN PRIMARY HOME lives with . She has two sons 21/2 and 25. Mental Status Exam Appearance: Well dressed, well groomed Behavior: Behaves appropriately during the encounter Social relatedness: Euthymic Speech/Language:The patient demonstrates appropriate tone, prosody, kavitha, phonetics, and syntax Mood: euthymic Affect: Full and appropriate to topic Orientation: Person, Place, Time and Situation Associations: Intact and linear Hallucinations: None Delusions: None Suicidal Ideation: No suicidal ideation, intent or plan. Homicidal Ideation: No homicidal ideation, intent or plan. Insight: Appropriate Judgment: Appropriate ER VISITS for Seizure: Review of Systems Allergies Allergen Reactions Amitriptyline Hallucinations Azithromycin Other reaction(s): GI Upset, GI Upset Erythromycin Base Other reaction(s): Nausea Gabapentin Other reaction(s): Swelling Hydrocodone Other reaction(s): Other Metoclopramide Anxiety and Palpitations Current Outpatient Medications Medication Sig Dispense Refill aspirin 81 MG oral suspension Atogepant (Qulipta) 60 MG tablet Take 1 tablet by mouth daily. 30 tablet 3 biotin 5000 MCG capsule cetirizine (ZyrTEC) 10 MG tablet daily. Cholecalciferol (Vitamin D) 125 MCG (5000 UT) capsule [START ON 02/24/2023] clonazePAM (KlonoPIN) 0.25 MG disintegrating tablet Take 1 tablet (0.25 mg) by mouth Nightly. First fill February 24 or later Do not start before February 24, 2023. 30 tablet 0 clonazePAM (KlonoPIN) 0.5 MG tablet Take 1 tablet (0.5 mg) by mouth 2 times daily. Do not start before December 28, 2022. 60 tablet 2 clonazePAM (KlonoPIN) 1 MG tablet Take 1 tablet (1 mg) by mouth 2 times daily for 14 days. Do not start before December 13, 2022. 60 tablet 0 clonazePAM (KlonoPIN) 2 MG tablet clonazepam 2 mg tablet dihydroergotamine (DHE) 1 MG/ML injection Infuse 1 mg into a venous catheter Once. eptinezumab (Vyepti) 100 MG/ML injection Infuse 100mg IV every 3 months 1 mL 3 famotidine (Pepcid) 20 MG tablet famotidine 20 mg tablet levonorgestrel (Mirena, 52 MG,) 20 MCG/DAY IUD 1 each by IntraUTERine route. linaCLOtide (Linzess) 72 MCG capsule Linzess 72 mcg capsule Magnesium 500 MG capsule Methylcobalamin 1000 MCG sublingual tablet Mecobalamin (Vitamin B12) Active 1000 MCG SL DAILY February 12, 2022 11:[address]pm place tablet under tongue and allow to dissolve for at least30 secs before swallowing omega-3 (fish oil) 1000 MG capsule onabotulinumtoxinA (Botox) 100 units injection Botox 100 unit injection pancrelipase, Boa-Mimz-Vayi, (Zenpep) 22632-91838 units capsule delayed-release particles capsule pantoprazole (ProtoNix) 40 MG EC tablet pantoprazole 40 mg tablet,delayed release promethazine (Phenergan) 25 MG tablet promethazine 25 mg tablet suvorexant (Belsomra) 15 MG tablet Take 1 tablet (15 mg) by mouth Nightly. With clonazepam 1 mg 30 tablet 0 suvorexant (Belsomra) 20 MG tablet Take 1 tablet (20 mg) by mouth Nightly. Do not start before January 02, 2023. 30 tablet 2 suvorexant (Belsomra) 20 MG tablet Take 1 tablet (20 mg) by mouth Nightly as needed for sleep. Fill 02/02 or later Do not start before February 02, 2023. 30 tablet 2 tiZANidine (Zanaflex) 4 MG capsule topiramate (Topamax) 100 MG tablet topiramate 100 mg tablet folic acid (Folvite) 1 MG tablet folic acid 1 mg tablet oxyCODONE-acetaminophen (Percocet) 10-325 MG tablet oxycodone-acetaminophen 10 mg-325 mg tablet take 1 tablet up to twice daily at least 4 hours apart as needed for migraine traZODone (Desyrel) 50 MG tablet trazodone 50 mg tablet Ubrogepant (Ubrelvy) 100 MG tablet Ubrelvy 100 mg tablet Current Facility-Administered Medications Medication Dose Route Frequency Provider Last Rate Last Admin onabotulinumtoxinA (Botox) injection 200 Units 200 Units IntraMUSCular Once Lorenzo Lr MD Past Medical History: Diagnosis Date Jerome esophagus Gastroparesis Migraine Social History Tobacco Use Smoking status: Never Smokeless tobacco: Never Substance Use Topics Alcohol use: Not on file Past Surgical History: Procedure Laterality Date CHOLECYSTECTOMY ENDOSCOPY VISIT OUTPATIENT (HISTORICAL) OOPHORECTOMY Left PORTACATH PLACEMENT REMOVAL OF KIDNEY STONE (HISTORICAL) TUBAL LIGATION No family history on file. BP 106/75 Pulse 95 Ht 5' 2 (1.575 m) Wt 123 lb 3.2 oz (55.9 kg) BMI 22.53 kg/m Physical Exam NEUROLOGIC: General Appearance: Well nourished, well developed, and in no apparent distress. Mental Status Exam: The patient is awake, alert and oriented to person, place and time. They have normal memory, fund of knowledge, attention/concentration and language. Spells 'HOUSE' forward and backward without errors. Verbal memory is normal. Language is fluent with intact comprehension and repetition. Cranial Nerves: II: VFF III, IV, : Pupils: equal, round, and reactive to light, extra ocular movements intact, no nystagmus V: Facial sensation: intact to light touch bilaterally VII: Facial strength: symmetric on smile and blink VIII: Hearing: intact to voice/conversation IX: No dysarthria XI: Shoulder shrug: symmetric against gravity Motor: Normal bulk and tone. No atrophy or fasciculations observed. Fine BUE tremors observed Right worse than left. Drift Arm abduction Elbow flexion Elbow extension Wrist flexion Wrist extension Finger extension Hand tax clerk Finger abduction RUE Absent 5 5 5 5 5 5 LUE Absent 5 5 5 5 5 5 Drift Hip flexion Knee extension Knee flexion Foot dorsiflexion Toe dorsiflexion Plantar flexion RLE 5 5 5 5 5 LLE 5 5 5 5 5 Fine Motor: no difficulty with finger-tapping Sensory: Bilaterally intact to light touch. Double simultaneous stimulation without extinction. Romberg absent. Coordination: Nreqmi-uv-zhui without dysmetria bilaterally. Able to perform rapid alternating movements smoothly (finger taps, alternate hand pronation and supination). Reflexes: Biceps Triceps Brachioradialis Patella Achilles Right 1+ NT 1+ 2+ NT Left 1+ nT 1+ 2+ NT No clonus, No Rodriguez's Gait: Normal gait, arm swing; 3 step turn, no difficulty with heel-to-toe or tandem. Data Reviewed and Summarized Labs: reviewed Imaging/Testing: none avial Assessment and Plan Epilepsy Classification: complicated migraine versus cardiogenic/neurocardiogenic syncope confounded by gastroparesis Etiology: genetic (?) Mood: euthymic Comorbidities: Akil Michelle is a 47 y.o. right handed female with a past medical history significant for gastroparesis, migraines and hemiplegic migraines (described as challenges forming words/speaking words, paresis [arm and leg]) from days to a week recurring 1-2 times every 6-12 months, and seizure-like spells/syncope (first spell occurring 7 years ago) +/- without worsening headaches with LOC and confusion lasting up to 5 minutes, recurring up to several times over a 6 month period. She completed an hour extended EEG, and 2 day ambulatory EEG. She reports her most recent spell occurred one day ago. This last spells occurred while she was in bed. She can be found laying on the floor. In nov, while in a hotel in [place], she fell to the floor and not responding for seconds to several minutes. She denies warning signs, palpitations, CP. However, while wearing a heart monitor (24-hours) no positive findings were discovered. Of note, she is experiencing poor sleep over the last 2 years with intermittent nightmares while moving subtly in her sleep (likely not REM sleep disorder). I am recommended Akil be admitted for a 48 hours diagnostic vEEG Monitoring study and high res MRI. I am concerned she may be experiencing nocturnal during sleep. 1. Syncope and collapse - [facility] - EEG CARE HOME MONITORING 2 - 3 DAY EVAL - MR brain w and wo contrast 2. Autonomic dysfunction - [facility] - EEG CARE HOME MONITORING 2 - 3 DAY EVAL - MR brain w and wo contrast Follow up in about 2 months (around 04/05/2023). Education We reviewed seizure safety in epilepsy, including no swimming, bathing alone, cooking over open flames, etc. We also discussed that the patient should not be driving according to state law for at least 6 months from the time of last seizure, episode of altered consciousness, or any symptoms that could affect their ability to safely drive. The patient was encouraged to contact the internal audit manager to apprise them of their medical condition. Venu Mccall MD [facility] Outpatient Progress Note & Billing by Time (2020 [facility] Guidelines): Time: (All time spent by provider-only, including documentation, for pre-/tfxx-ws-ydty/post- visit on the day of the visit ending at midnight on same day of visit). Encounter Code Level Time Spent (min) New Patient [id number] 15-29 [id number] 30-44 43697 45-59 [id number] 60-74 Established Patient [id number] 10-19 [id number] 20-29 22246 30-39 05557 40-54 Preparing for visit (review testing/procedures/notes) (min) Obtaining history (minutes) 45 Counseling, educating patient/family (minutes) 15 Ordering testing (minutes) Communicating with other providers (minutes) Charting (minutes) 45 Independently interpreting/documenting results (minutes) Communicating test results to patient/family (minutes) Total Time Today (min) = 105 documented in this encounter [facility] 01-31-2023 Telephone encounter Note When patients have infusions at [facility], that infusion center does the billing, etc. So any billing insurance issue she is having with her infusions from there have to be addressed between her and them. Our [place] office is not yet up and doing IV infusions. If they were, I would have Davian set it up. [facility] 01-31-2023 Miscellaneous Notes When patients have infusions at [facility], that infusion center does the billing, etc. So any billing insurance issue she is having with her infusions from there have to be addressed between her and them. Our [place] office is not yet up and doing IV infusions. If they were, I would have Davian set it up. Patient called in to [facility] requesting assistance with getting this corrected so she is able to get her DHE infusion. After talking with Davian, we do not handle DHE and the medical billing process. We think it would be beneficial if you are able to coordinate with the [place] Nurse Isidro on how the referrals are sent to [facility] for DHE , and possibly contacting [facility] for clarification on the issue holding up the infusion process for Akil. Thank you! Message released to patient as written. Patient's further questions if applicable: pt already talked to the [facility], they told her to talk to her insurance, who told her to talk to DR Lr' office. It has to do with how the orders were sent to the insurance company. Pt said she has talked to Gisella at the [facility] who has not been helpful with what she can do. They told her the insurance denied and to call them. Pts insurance said the order needed submitted differently. Please advise if someone can help pt to clarify her questions and how to get this scheduled. Were all questions from office addressed or relayed to the patient from encounter: Yes Ask her if she is getting the infusions at [facility]. If so, they are doing the billing and we are not. So she would have to talk to them in that case. Please advise. Name of caller: Akil Contact phone number: [phone] Relationship to Patient: patient Provider: Dr. Lr Practice: [facility] Chief Complaint/Reason for Call: Patient states that she has spoken to [employer] and was told that there is a problem covering the infusions. She states that it has to do with this being billed as pharmacy and not medical. Patient states she is needing to get back on the infusions due to an increase of pain. Please advise. Best time of day caller can be reached: Any Patient advised that office/PCP has 24-48 business hours to return their call: Yes documented in this encounter [facility] 01-31-2023 Telephone encounter Note Patient called in to [facility] requesting assistance with getting this corrected so she is able to get her DHE infusion. After talking with Davian, we do not handle DHE and the medical billing process. We think it would be beneficial if you are able to coordinate with the [place] Nurse Isidro on how the referrals are sent to [facility] for DHE , and possibly contacting [facility] for clarification on the issue holding up the infusion process for Akil. Thank you! [facility] 01-31-2023 Telephone encounter Note Message released to patient as written. Patient's further questions if applicable: pt already talked to the [facility], they told her to talk to her insurance, who told her to talk to DR Lr' office. It has to do with how the orders were sent to the insurance company. Pt said she has talked to Gisella at the [facility] who has not been helpful with what she can do. They told her the insurance denied and to call them. Pts insurance said the order needed submitted differently. Please advise if someone can help pt to clarify her questions and how to get this scheduled. Were all questions from office addressed or relayed to the patient from encounter: Yes [facility] 01-30-2023 Telephone encounter Note Ask her if she is getting the infusions at [facility]. If so, they are doing the billing and we are not. So she would have to talk to them in that case. [facility] 01-30-2023 Telephone encounter Note Please advise. [facility] 01-30-2023 Telephone encounter Note Name of caller: Akil Contact phone number: [phone] Relationship to Patient: patient Provider: Dr. Lr Practice: [facility] Chief Complaint/Reason for Call: Patient states that she has spoken to [employer] and was told that there is a problem covering the infusions. She states that it has to do with this being billed as pharmacy and not medical. Patient states she is needing to get back on the infusions due to an increase of pain. Please advise. Best time of day caller can be reached: Any Patient advised that office/PCP has 24-48 business hours to return their call: Yes [facility] 01-27-2023 History of Presen t illness Narrative Images from the original note were not included. [facility] [address] [place] [address] [facility] [address] Dept: [phone] Dept Loc: [phone] Visit type: Established Patient Reason for Visit: Follow-up (Syncope, Migraines ) Assessment and Plan 1. Syncope and collapse - External referral to Cardiology 2. 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 Primary insomnia - clonazePAM (KlonoPIN) 0.25 MG disintegrating tablet; Take 1 tablet (0.25 mg) by mouth Nightly. First fill February 24 or later Do not start before February 24, 2023., Starting 02/24/2023, Until 03/26/2023, Normal - suvorexant (Belsomra) 20 MG tablet; Take 1 tablet (20 mg) by mouth Nightly as needed for sleep. Fill 02/02 or later Do not start before February 02, 2023., Starting 02/02/2023, Until Tu03/04/2023 at 2359, Normal 4. Autonomic dysfunction Subjective HPI: She reports that she had a syncopal episode. She reports that she passed out getting out of bed. She was unconscious briefly. Her reports that she is confused for a few seoncds and then becomes re-oriented. She got a headache later. She also had a flare up of her gastroparesis. She reports that she had to be admitted to the hospital and she had to have Botox in her pyloric sphincter. This is all per the patient as I do not have access to [facility] records. She has not been seen by Dr. Kam yet. She reports that she has seen Dr. Patterson in the past. She reports taht she was worried that the Qulipta was to blame, but her GI doc felt that clonazepam and other factors were to blame. She reports that the Belsomra helps her to fall asleep. She is not staying asleep as well now that the clonazepam is down from 2 mg to 0.5 mg. She is having frequent migraines. She has not been able to get the infusion of Vyepti. She is on the Qulipta which is preventing her from getting a lot worse. REVIEW OF SYSTEMS: Review of Systems Constitutional: Negative for appetite change, chills, diaphoresis, fatigue, fever and unexpected weight change. HENT: Negative for dental problem and mouth sores. Eyes: Negative for discharge and itching. Respiratory: Negative for chest tightness and shortness of breath. Cardiovascular: Negative for chest pain, palpitations and leg swelling. Gastrointestinal: Positive for nausea. Negative for abdominal pain, rectal pain and vomiting. Endocrine: Negative for polydipsia, polyphagia and polyuria. Genitourinary: Negative for decreased urine volume, flank pain and genital sores. Musculoskeletal: Negative for arthralgias, back pain and neck pain. Skin: Negative for color change. Allergic/Immunologic: Negative for food allergies and immunocompromised state. Neurological: Positive for dizziness, syncope, light-headedness and headaches. Negative for weakness. Hematological: Negative for adenopathy. Does not bruise/bleed easily. Psychiatric/Behavioral: Positive for confusion. Negative for agitation, behavioral problems, decreased concentration, sleep disturbance and suicidal ideas. Answers submitted by the patient for this visit: Neurological Problem Questionnaire (Submitted on 01/20/2023) Chief Complaint: Neurologic complaint altered mental status: Yes clumsiness: No focal sensory loss: No focal weakness: No loss of balance: Yes memory loss: Yes near-syncope: Yes slurred speech: No visual change: No Chronicity: chronic Onset: more than 1 year ago Onset quality: gradually Progression since onset: unchanged Focality: facial, right-sided auditory change: Yes aura: Yes bladder incontinence: No bowel incontinence: No vertigo: Yes Treatments tried: aspirin, bed rest, drinking, eating, medication, sleep, walking Improvement on treatment: mild Allergies Allergen Reactions Amitriptyline Hallucinations Azithromycin Other reaction(s): GI Upset, GI Upset Erythromycin Base Other reaction(s): Nausea Gabapentin Other reaction(s): Swelling Hydrocodone Other reaction(s): Other Metoclopramide Anxiety and Palpitations Current Outpatient Medications: aspirin 81 MG oral suspension, , Disp: , Rfl: Atogepant (Qulipta) 60 MG tablet, Take 1 tablet by mouth daily., Disp: 30 tablet, Rfl: 3 biotin 5000 MCG capsule, , Disp: , Rfl: cetirizine (ZyrTEC) 10 MG tablet, daily., Disp: , Rfl: Cholecalciferol (Vitamin D) 125 MCG (5000 UT) capsule, , Disp: , Rfl: clonazePAM (KlonoPIN) 0.5 MG tablet, Take 1 tablet (0.5 mg) by mouth 2 times daily. Do not start before December 28, 2022., Disp: 60 tablet, Rfl: 2 dihydroergotamine (DHE) 1 MG/ML injection, Infuse 1 mg into a venous catheter Once., Disp: , Rfl: eptinezumab (Vyepti) 100 MG/ML injection, Infuse 100mg IV every 3 months, Disp: 1 mL, Rfl: 3 famotidine (Pepcid) 20 MG tablet, famotidine 20 mg tablet, Disp: , Rfl: levonorgestrel (Mirena, 52 MG,) 20 MCG/DAY IUD, 1 each by IntraUTERine route., Disp: , Rfl: linaCLOtide (Linzess) 72 MCG capsule, Linzess 72 mcg capsule, Disp: , Rfl: Magnesium 500 MG capsule, , Disp: , Rfl: Methylcobalamin 1000 MCG sublingual tablet, Mecobalamin (Vitamin B12) Active 1000 MCG SL DAILY February 12, 2022 11:[address] tablet under tongue and allow to dissolve for at least30 secs before swallowing, Disp: , Rfl: omega-3 (fish oil) 1000 MG capsule, , Disp: , Rfl: pancrelipase, Cha-Swsq-Shnz, (Zenpep) 04526-45508 units capsule delayed-release particles capsule, , Disp: , Rfl: pantoprazole (ProtoNix) 40 MG EC tablet, pantoprazole 40 mg tablet,delayed release, Disp: , Rfl: promethazine (Phenergan) 25 MG tablet, promethazine 25 mg tablet, Disp: , Rfl: suvorexant (Belsomra) 20 MG tablet, Take 1 tablet (20 mg) by mouth Nightly. Do not start before January 02, 2023., Disp: 30 tablet, Rfl: 2 tiZANidine (Zanaflex) 4 MG capsule, , Disp: , Rfl: topiramate (Topamax) 100 MG tablet, topiramate 100 mg tablet, Disp: , Rfl: traZODone (Desyrel) 50 MG tablet, trazodone 50 mg tablet, Disp: , Rfl: [START ON 02/24/2023] clonazePAM (KlonoPIN) 0.25 MG disintegrating tablet, Take 1 tablet (0.25 mg) by mouth Nightly. First fill February 24 or later Do not start before February 24, 2023., Disp: 30 tablet, Rfl: 0 clonazePAM (KlonoPIN) 1 MG tablet, Take 1 tablet (1 mg) by mouth 2 times daily for 14 days. Do not start before December 13, 2022., Disp: 60 tablet, Rfl: 0 clonazePAM (KlonoPIN) 2 MG tablet, clonazepam 2 mg tablet, Disp: , Rfl: folic acid (Folvite) 1 MG tablet, folic acid 1 mg tablet, Disp: , Rfl: onabotulinumtoxinA (Botox) 100 units injection, Botox 100 unit injection, Disp: , Rfl: oxyCODONE-acetaminophen (Percocet) 10-325 MG tablet, oxycodone-acetaminophen 10 mg-325 mg tablet take 1 tablet up to twice daily at least 4 hours apart as needed for migraine, Disp: , Rfl: suvorexant (Belsomra) 15 MG tablet, Take 1 tablet (15 mg) by mouth Nightly. With clonazepam 1 mg, Disp: 30 tablet, Rfl: 0 [START ON 02/02/2023] suvorexant (Belsomra) 20 MG tablet, Take 1 tablet (20 mg) by mouth Nightly as needed for sleep. Fill 02/02 or later Do not start before February 02, 2023., Disp: 30 tablet, Rfl: 2 Ubrogepant (Ubrelvy) 100 MG tablet, Ubrelvy 100 mg tablet, Disp: , Rfl: Filled Written Sold ID Drug QTY Days Prescriber RX # Dispenser Refill Daily Dose* Pymt Type CLIENT REPRESENTATIVE 01/03/2023 12/02/2022 2 Belsomra 20 Mg Tablet 30.00 30 Ja Bav [id number] Sum ([id number]) 0 0.40 [facility] [place] 12/28/2022 12/02/2022 2 Clonazepam 0.5 Mg Tablet 60.00 30 Ja Bav [id number] Mar ([id number]) 0 2.00 [place] 12/14/2022 12/02/2022 2 Clonazepam 1 Mg Tablet 60.00 30 Ja Bav [id number] Mar ([id number]) 0 4.00 [place] 12/13/2022 12/02/2022 2 Belsomra 15 Mg Tablet 30.00 30 Ja Bav [id number] Sum ([id number]) 0 0.30 [place] 11/13/2022 08/27/2022 2 Clonazepam 2 Mg Tablet 30.00 30 [facility] [id number] Mar ([id number]) 2 4.00 [place] Past Medical History: Diagnosis Date Jerome esophagus Gastroparesis Migraine Social History Tobacco Use Smoking status: Never Smokeless tobacco: Never Substance Use Topics Alcohol use: Not on file Past Surgical History: Procedure Laterality Date CHOLECYSTECTOMY ENDOSCOPY VISIT OUTPATIENT (HISTORICAL) OOPHORECTOMY Left PORTACATH PLACEMENT REMOVAL OF KIDNEY STONE (HISTORICAL) TUBAL LIGATION No family history on file. Objective Vitals: BP (!) 144/73 (BP Location: Right arm) Pulse 71 Wt 124 lb 6.4 oz (56.4 kg) BMI 22.75 kg/m General Appearance: Patient is in no apparent distress. Head is normocephalic, atraumatic Cardiovascular: Regular rate and rhythm. No heart murmurs. No carotid bruit Neurologic: Mentation: Alert and oriented x 3 to person, place and time. Speech and Language: Speech and language normal Concentration and Attention: Concentration normal Memory: Memory normal Fund of Knowledge: Fund of knowledge normal Cranial Nerves: II, III, IV, V, , VII, VIII, IX, X, XI, XII examined and were intact. Motor: Strength: Strength 5 out of 5 with normal tone Alternating Movements: Normal Cogwheel Rigidity: None Tone: Tone is normal Tremor / Involuntary Movements: None Deep Tendon Reflexes: 1 out of 4 symmetrical in all four limbs. Coordination: Normal coordination upper and lower extremities Gait and Station: Station is normal. Gait is normal Data Reviewed and Summarized DIAGNOSTIC TESTING CBC: No results found for: WBC, RBC, HGB, HCT, MCV, MCH, MCHC, RDW, PLT, MPV CMP: No results found for: NA, K, CL, CO2, BUN, CREATININE, AGRATIO, LABGLOM, GLUCOSE, GLU, PROT, CALCIUM, BILITOT, ALKPHOS, AST, ALT BMP: No results found for: NA, K, CL, CO2, BUN, CREATININE, CALCIUM, LABGLOM, GLUCOSE, GLU PT/INR: No results found for: PROTIME, INR PTT: No results found for: APTT, PTT[APTT} FLP: No results found for: CHLPL, TRIG, HDL, LDLCALC, LDLDIRECT TSH: No results found for: TSH VITAMIN B12: No results found for: [id number] No results found for: PHENYTOIN, PHENOBARB, VALPROATE, CBMZ No components found for: TOPIRA @RESULTINGLABINFO@ No results found for: LEVETIRACETA, FERRITIN, CRP, ARNEL, ANCA No results found for: ROB, IMMUNOGLOBUL, OLIGOBANDS No results found for: [id number], HEPCAB No results found for: CRP, ANATITER, ANCA, ANCA FERRITIN: No results found for: FERRITIN ---- No image results found. IMPRESSION and PLAN: Diagnosis Plan 1. Syncope and collapse External referral to Cardiology 2. 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 Primary insomnia clonazePAM (KlonoPIN) 0.25 MG disintegrating tablet suvorexant (Belsomra) 20 MG tablet 4. Autonomic dysfunction Referrals to epileptology and cardiology in the process. IVHA infusion. Continue Qulipta and the Vyepti. She reports that Botox did help. Will try to get that for her. She is weaning off of the clonazepam. She reports that she is doing fairly well on the Belsomra. Weaning off of the clonazepam. No problem-specific Assessment & Plan notes found for this encounter. LORENZO LR MD I spent 40 minutes caring for this patient today, reviewing labs, records, seeing the patient, documenting in the record and arranging for studies. documented in this encounter [facility] 01-12-2023 Miscellaneous Notes January 13, 2023 PID: [id number] Akil Michelle [address] [place] [address] Dear Kimsanket, We are pleased to inform you that the results of your recent breast imaging exam on 01/10/2023 are normal. Your mammogram demonstrates that you have dense breast tissue, which could hide abnormalities. Dense breast tissue, in and of itself, is a relatively common condition. Therefore, this information is not provided to cause undue concern; rather, it is to raise your awareness and promote discussion with your health care provider regarding the presence of dense breast tissue in addition to other risk factors. Early detection of cancer is very important. We also understand recommendations regarding breast cancer screening are controversial. Please discuss with your primary care provider which strategy is best for you and whether a mammogram is right for you. Your imaging studies and report will be kept on file at [facility] as part of your permanent medical record and are available for your continuing care. Thank you for allowing us to help in meeting your health care needs. Sincerely, Dr. Tripp Interpreting Radiologist [facility] (Normal over 40) documented in this encounter [facility] 01-10-2023 History of Presen t illness Narrative Radiology Service Progress Note PATIENT NAME: Akil Michelle DATE OF SERVICE: January 10, 2023 TIME: 8:12 AM PATIENT IDENTITY VERIFICATION COMPLETED USING TWO (2) IDENTIFIERS: Name and Date of confirmed by patient verbally. FALL SCREENING: Has the patient had 2 falls in the last year or 1 fall with injury or currently using an Ambulatory Assistive Device (Walker, Cane, Wheelchair, Crutches, etc.)? No PATIENT GENDER DATA: Female. status: : No status: NO. PATIENT RELEVANT IMPLANT DATA REVIEWED: Not Applicable RADIOLOGY DEPARTMENT: Mammography PERIPHERAL IV DATA: Not applicable SIGNED BY: RT Emili(R) January 10, 2023 8:12 AM documented in this encounter [facility] 01-03-2023 Telephone encounter Note Port order faxed to the [facility] [phone] [facility] 01-03-2023 Miscellaneous Notes Port order faxed to the [facility] [phone] Name of caller: [facility] Contact phone number: [phone] Relationship to Patient: Provider Provider: Néstor Practice: [facility] Neuro Chief Complaint/Reason for Call: [facility] is calling to ask for a port order for pt for their appointment tomorrow (01/02/23) please advise. Can be faxed to [phone] Best time of day caller can be reached: Any Patient advised that office/PCP has 24-48 business hours to return their call: Yes documented in this encounter [facility] 01-02-2023 History of Presen t illness Narrative Patient is here for vyepti infusion, port accessed, no labs ordered 1512 Ordered treatment completed. Patient discharged without any issues. Patient has a copy of next infusion appointment and verbalizes understanding. All questions answered. documented in this encounter [facility] 01-01-2023 Telephone encounter Note Name of caller: Infusion Center Contact phone number: [phone] Relationship to Patient: Provider Provider: Néstor Practice: [facility] Neuro Chief Complaint/Reason for Call: Infusion center is calling to ask for a port order for pt for their appointment tomorrow (01/02/23) please advise. Can be faxed to [phone] Best time of day caller can be reached: Any Patient advised that office/PCP has 24-48 business hours to return their call: Yes [facility] 01-01-2023 Miscellaneous Notes Name of caller: Infusion Center Contact phone number: [phone] Relationship to Patient: Provider Provider: Néstor Practice: [facility] Neuro Chief Complaint/Reason for Call: Infusion center is calling to ask for a port order for pt for their appointment tomorrow (01/02/23) please advise. Can be faxed to [phone] Best time of day caller can be reached: Any Patient advised that office/PCP has 24-48 business hours to return their call: Yes documented in this encounter [facility] 12-21-2022 Discharge summary Note Date/Time December 21, 2022 9:45 am [facility] Medical Records Department [address] [place] [address] Instructions for Home/Discharge Instructions 12/21/22 0944 MR#: [id number] Acct: [id number] Name: AKIL MICHELLE Rep #:[id number] : 1975 47 From: Butch farrar MD PCP: Dr. Nikky Pillai MD Status:ADM IN Discharge Instructions Diet Discharge Diet: - (2 feet of Jevity 1.5 with 200 mL boluses 4 times a day followed by 100 mL water flushes. You can drink water and take your pills by mouth but everything else should be through the G-tube) Activity Discharge Activity: Return to Normal Activity Dressing / Incision Call your doctor if you observe: Fever of 101 or Higher, Shortness of breath, Dizziness, Fainting spells, Swelling in the ankles, Chest pain and Increased palpitations (irregular heartbeat) Follow Up Care Test Results: Test results from this visit will be discussed in further detail at your follow-up appointment, if applicable. Discharge Plan Admission Admit Date/Time: 12/18/22 18:24 Attending Provider: Butch Dinero Primary Care Provider: Nikky Pillai Consulting Providers: Silvia Coates ; Friend,Jamie Discharge Orders/Prescriptions Prescriptions: New prednisone 20 mg tablet 40 mg PO DAILY 14 Days Qty: 28 0RF Continued Mirena 20 mcg/24 hours (7 yrs) 52 mg intrauterine device 1 device intrauterine ONCE Rx Instructions: as a single dose aspirin 81 mg tablet,delayed release (DR/EC) 81 mg PO DAILY Vyepti 100 mg/mL solution 100 mg .Route [id number] Rx Instructions: every 3 monthsheadache 100 mg topiramate 200 mg tablet 50 mg PO QHS trazodone 50 mg tablet 50 mg PO QHS pantoprazole [Protonix] 40 mg tablet,delayed release (DR/EC) 40 mg PO DAILY Qty: 30 2RF tizanidine 4 MG capsule 4 mg PO DAILY PRN PRN (Reason: Migraine Symptoms) cholecalciferol (vitamin D3) 1,000 UNIT tablet 1,000 units PO DAILY magnesium oxide 500 MG capsule 500 mg PO BID biotin 10,000 MCG capsule 10,000 mcg PO DAILY promethazine 25 mg Tablet 25 mg PO PRN PRN (Reason: Nausea) omega-3 fatty acids-vitamin E 1,000 mg Capsule 1,000 cap PO DAILY promethazine 25 mg suppository 25 mg VT Q6H PRN (Reason: nausea and vomiting) Qty: 12 0RF Zyrtec 20 mg PO/SL QHS Qulipta 60 mg PO/SL DAILY levomefolate calcium [L-Methylfolate] 15 mg Tablet 15 mg PO DAILY clonazepam 2 mg tablet 2 mg PO QHS Qty: 1 0RF Rx Instructions: Decrease dose to 1 mg at night and supplement the rest with melatonin up to 10 mg nightly to assist with sleep Linzess 72 mcg capsule 72 mcg PO DAILY Qty: 30 3RF famotidine 20 mg tablet 20 mg PO QHS Qty: 30 11RF Zenpep 40,000-126,000- 168,000 unit capsule,delayed release(DR/EC) 3 cap PO TID Qty: 320 11RF Rx Instructions: Take three with meals and 1-2 with snacks Referrals / Follow Up: Nikky Pillai MD [Primary Care Provider] - Within 1 Week Jamie Cuevas DO [Med Staff - Active Staff] - Within 2 Weeks Disposition Disposition (needs filled in before D/C Order can be placed): Home, Self Care 12/21/22 1006<Electronically signed by Butch Dinero MD>Butch Dinero MD CC: Dr. Nikky Pillai MD; Dr. Silvia Coates DO; Jamie Cuevas DO ~ Signed [facility] Work Phone: 1(570) 846-308003-04-[address] Dinero [facility] December 21, 2022 10:06am Note Date/Time December 21, 2022 9:52 am [facility] Medical Records Department [address] [place] [address] Discharge Summary 12/21/22 0950 MR#: [id number] Acct: [id number] Name: AKIL MICHELLE Rep #:[id number] : 1975 47 From: Butch farrar MD PCP: Dr. Nikky Pillai MD Status:ADM IN Location: [facility] CG085-8 Providers Date of Admission: 12/18/22 Primary Care Physician: Dr. Nikky Pillai MD Consultations 12/18/22 20:59 Consult: Gastroenterology Routine Consulting Provider: FaithJamie Reason for Consult: Intractable nausea/vomiting-patient known to you EMERGENT Consult: No MD Notified: Yes Date Notified: 12/19/22 Time Notified: 06:55 Method of Notification: Text Reason For Visit: INTRACATABLE NAUSEA AND VOMITING Diagnosis Discharge Diagnosis (1) Abdominal pain: Status: Acute Code(s): R10.9 - Unspecified abdominal pain (2) Intractable nausea and vomiting: Status: Acute Code(s): R11.2 - Nausea with vomiting, unspecified (3) Common bile duct dilatation: Status: Acute Code(s): K83.8 - Other specified diseases of biliary tract (4) Elevated serum creatinine: Status: Acute Code(s): R79.89 - Other specified abnormal findings of blood chemistry Medications at Discharge Home Medications cholecalciferol (vitamin D3) 25 mcg (1,000 unit) tablet 1,000 units PO DAILY supplement 12/25/18 tizanidine 4 mg capsule 4 mg PO DAILY PRN PRN Migraine Symptoms 12/25/18 magnesium oxide 500 mg capsule 500 mg PO BID supplement 11/11/19 biotin 10,000 mcg capsule 10,000 mcg PO DAILY hair loss 09/15/20 aspirin 81 mg tablet,delayed release 81 mg PO DAILY blood thinner 02/13/22 eptinezumab-jjmr 100 mg/mL intravenous solution (Vyepti) 100 mg .Route [id number] migraines 02/13/22 levonorgestrel 21 mcg/24 hours (8 yrs) 52 mg intrauterine device (Mirena) 1 device intrauterine ONCE control 02/13/22 omega-3 fatty acids-vitamin E 1,000 mg capsule 1,000 cap PO DAILY supplement 02/18/22 promethazine 25 mg tablet 25 mg PO PRN PRN Nausea 02/18/22 topiramate 200 mg tablet 50 mg PO QHS migraine 05/29/22 trazodone 50 mg tablet 50 mg PO QHS sleep 05/29/22 famotidine 20 mg tablet 20 mg PO QHS #30 tabs 09/30/22 linaclotide 72 mcg capsule (Linzess) 72 mcg PO DAILY #30 caps 09/30/22 zrlvye-busbppej-fjckxal 40,000-126,000-168,000 unit capsule, delay rel (Zenpep) 3 cap PO TID #320 caps 10/07/22 pantoprazole 40 mg tablet,delayed release (Protonix) 40 mg PO DAILY #30 tabs 11/15/22 promethazine 25 mg rectal suppository 25 mg VT Q6H PRN nausea and vomiting #12 ea 12/12/22 Qulipta 60 mg PO/SL DAILY migraines 12/18/22 Zyrtec 20 mg PO/SL QHS allergies 12/18/22 levomefolate calcium 15 mg tablet (L-Methylfolate) 15 mg PO DAILY supplement 12/18/22 clonazepam 2 mg tablet 2 mg PO QHS sleep #1 TAB 12/21/22 prednisone 20 mg tablet 40 mg PO DAILY 2 weeks #28 tabs 12/21/22 Hospital Course Operations None Procedures EGD Summary of Care Provided Minutes Spent on Discharge: 37 Hospital Course: Per HPI: AKIL MICHELLE, is a 47 F who presented to the emergency department [facility] on 12/18/2022 with intractable nausea and vomiting.? Patient states that this has been ongoing for about 2 weeks.? She has a history of gastroparesis that was diagnosed about a year ago by Dr. Cuevas.? She has been compliant with her home medications.? She states she is really not been able to eat or drink much for about 8 days now.? She is able to take sips here and there but not drink large volumes.? She also complains of pain in the epigastric region of her abdomen.? Nothing is really helped her thus far.? She denies any fever or chills.? She did take MiraLAX bowel prep recently per Dr. Cuevas's instruction to see if cleaning out her bowels would help with her nausea vomiting and had liquid bowel movements that were brown in nature with this but bowels have been normal otherwise.? I did discuss the case with Dr. 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 Patient does take benzos on a regular basis 2 mg of Klonopin daily with 1 mg as needed.? She has previous cholecystectomy she thinks about 5 years ago. Vital signs at the time of presentation showed temperature of 98, heart rate 89,blood pressure 142/97, respirate 14, oxygen saturations 100% on room air.? CBC was unremarkable.? Her chemistry panel shows normal electrolytes other than somemild hyperchloremia at 108 and a BUN of 22 and a serum creatinine of 1.44.? Thisappears to be close to where she has been running lately however I am not clear if she is chronically dehydrated because her serum creatinine has been better prior to this.? Glucose was 73.? Her ALT was 141 with a normal AST and her alk phos was 145.? Lipase was 372.? Abdominal ultrasound demonstrated that she was status postcholecystectomy but had a mildly dilated common bile duct at 9 mm. Hospital Course: 1. Abdominal pain with intractable nausea and vomiting secondary to chronic gastroparesis possibly due to benzodiazepine usage?47-year-old female to the hospital with gastroparesis. It was noted that her bile duct was 9 mm which is within the normal range for postcholecystectomy however an MRCP was obtained andwas unremarkable. Gastroenterology was consulted placed her on steroids and placed a Dobbhoff in a postpyloric position to allow for tube feeds as well as providing Botox to her pylorus. She tolerated the procedure well and will be placed on Jevity 1.5 at 200 cc boluses every 4 hours followed by 100 [address] flushes[address] We will place her on p.o. prednisone daily for 2 weeks until she can follow-up with gastroenterology as an outpatient. We also did decrease her Klonopin dosage at night and place her on melatonin which did seem to help her sleep a little bit today. She will follow- up with her neurologist as they are trying totransition her off of Klonopin and onto a different medication to help with her sleep. I discussed with her and her the plan for discharge today they expressed understanding of the risks and benefits of going home and would like to go home today. 2. Anxiety, insomnia, migraine headaches are chronic conditions which complicate her. Her conditions were continued where appropriate Physical Exam Narrative General: Alert, Oriented x3, Cooperative, No apparent distress HEENT: Atraumatic, PERRLA, EOMI, Normocephalic, Dobbhoff in place Oral: Moist Mucosa Neck: Supple, No JVD Lungs: Clear to auscultation, Normal air movement, No rhonchi, No wheeze, No rales Cardiovascular: Regular rate, Regular Rhythm, Normal S1, Normal S2, No murmurs Abdomen: Soft, mild tender epigastric, Non-Distended, No Hepato-splenomegaly Extremities: No edema, Capillary Refill Less than 3 Seconds Skin: No rashes, No breakdown Musculoskeletal: No Tenderness to Palpation of Joints or Extremities Neurological: Cranial nerves II-XII grossly intact, Motor Exam 5/5 strength throughout, Sensory exam intact to light touch and pain Psych/Mental Status: Normal Affect, Appropriate Medical Records Data Medical Nutrition Assessment Dietitian: Malnutrition Criteria Met Start: 12/19/22 12:01 Freq: Status: Active Protocol: Document 12/20/22 15:38 SLA (Rec: 12/20/22 15:38 [facility] [id number]) Nutrition Malnutrition Evidence of Malnutrition Exists Yes Malnutrition (severe): Acute Illness/Injury Evidenced By Suboptimal Energy Intake ( Severe),Weight Loss (Severe) Intake Problem Inadequate Oral Intake Etiology related to altered GI function Signs/Symptoms as evidenced by dobhoff tube insertion and clear liquid diet Status Active Problem Clinical Problem Acute Disease or Injury Related Malnutrition Etiology Severe protein-calorie malnutrition in the context of acute disease related to inadequate oral intake and altered GI function Signs/Symptoms as evidenced by ~12% weight loss and PO 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 Flush with 130 ml water flush every 4 hours. TF at goal rate of 45 ml/hr will provide ~ 1620 ervin/h 69 gm pro /1600 ml water/day. Adjust TF pending pt po intake and wt trends. Encouraged to call RD as needed. Weight / BMI Weight Weight: 117 lb 15.157 oz Body Mass Index (BMI) 21.7 ABG / Lab / Microbiology Data Result Diagrams: 12/21/22 06:58 12/21/22 06:58 Laboratory: Laboratory Results - last 24 hr 12/21/22 06:58: WBC 8.2, RBC 3.86 L, Hgb 10.9 L, Hct 34.3 L, MCV 88.9, MCH 28.2,MCHC 31.8 L, RDW Std Deviation 40.5, RDW Coeff of Brian 12.4, Plt Count 134 L, MPV10.3, Immature Gran % (Auto) 0.700, Neut % (Auto) 87.1 H, Lymph % (Auto) 9.5 L, Lynn % (Auto) 2.6, Eos % (Auto) 0.0, Baso % (Auto) 0.1, Absolute Neuts (auto) 7.1, Absolute Lymphs (auto) 0.78 L, Nucleated RBC % 0 12/21/22 06:58: Sodium 143, Potassium 3.5, Chloride 115 H, Carbon Dioxide 21.0, Anion Gap 7, BUN 8, Creatinine 1.08 H, Estim Creat Clear Calc 48.59, Est GFR (MDRD) Af Amer 70, Est GFR (MDRD) Non-Af 58 L, BUN/Creatinine Ratio 7.4 L, Glucose 244 H, Calcium 8.7 D/C Instructions Discharge Diet: - (2 feet of Jevity 1.5 with 200 mL boluses 4 times a day followed by 100 mL water flushes. You can drink water and take your pills by mouth but everything else should be through the G-tube) Call your doctor if you observe: Fever of 101 or Higher, Shortness of breath, Dizziness, Fainting spells, Swelling in the ankles, Chest pain and Increased palpitations (irregular heartbeat) Meaningful Use Info Meaningful Use Diagnoses (Choose all that apply): None applicable Discharge Plan Admission Admit Date/Time: 12/18/22 18:24 Attending Provider: Butch Dinero Primary Care Provider: Nikky Pillai Consulting Providers: Silvia Coates ; Friend,Jamie Discharge Orders/Prescriptions Prescriptions: New prednisone 20 mg tablet 40 mg PO DAILY 14 Days Qty: 28 0RF Continued Mirena 20 mcg/24 hours (7 yrs) 52 mg intrauterine device 1 device intrauterine ONCE Rx Instructions: as a single dose aspirin 81 mg tablet,delayed release (DR/EC) 81 mg PO DAILY Vyepti 100 mg/mL solution 100 mg .Route [id number] Rx Instructions: every 3 monthsheadache 100 mg topiramate 200 mg tablet 50 mg PO QHS trazodone 50 mg tablet 50 mg PO QHS pantoprazole [Protonix] 40 mg tablet,delayed release (DR/EC) 40 mg PO DAILY Qty: 30 2RF tizanidine 4 MG capsule 4 mg PO DAILY PRN PRN (Reason: Migraine Symptoms) cholecalciferol (vitamin D3) 1,000 UNIT tablet 1,000 units PO DAILY magnesium oxide 500 MG capsule 500 mg PO BID biotin 10,000 MCG capsule 10,000 mcg PO DAILY promethazine 25 mg Tablet 25 mg PO PRN PRN (Reason: Nausea) omega-3 fatty acids-vitamin E 1,000 mg Capsule 1,000 cap PO DAILY promethazine 25 mg suppository 25 mg VT Q6H PRN (Reason: nausea and vomiting) Qty: 12 0RF Zyrtec 20 mg PO/SL QHS Qulipta 60 mg PO/SL DAILY levomefolate calcium [L-Methylfolate] 15 mg Tablet 15 mg PO DAILY clonazepam 2 mg tablet 2 mg PO QHS Qty: 1 0RF Rx Instructions: Decrease dose to 1 mg at night and supplement the rest with melatonin up to 10 mg nightly to assist with sleep Linzess 72 mcg capsule 72 mcg PO DAILY Qty: 30 3RF famotidine 20 mg tablet 20 mg PO QHS Qty: 30 11RF Zenpep 40,000-126,000- 168,000 unit capsule,delayed release(DR/EC) 3 cap PO TID Qty: 320 11RF Rx Instructions: Take three with meals and 1-2 with snacks Referrals / Follow Up: Nikky Pillai MD [Primary Care Provider] - Within 1 Week FriendJamie DO [Med Staff - Active Staff] - Within 2 Weeks Disposition Disposition (needs filled in before D/C Order can be placed): Home, Self Care Charges/Coding Visit Charges Inpatient E&M: 82238 Disch Hosp >30min 12/21/22 1006 <Electronically signed by Butch Dinero MD> Cosigner Signature (if applicable): CC: Dr. Nikky Pillai MD; Dr. Butch Dinero MD~ Signed [facility] Work Phone: 1(286) 966-952903-03-[address] Dinero [facility] December 20, 2022 1:45pm Note Date/Time December 20, 2022 10:2 5am [facility] Medical Records Department [address] [place] [address] Progress Note - Hospitalist 12/20/22 1023 MR#: [id number] Acct: [id number] Name: AKIL MICHELLE Rep #:[id number] : 1975 47 From: Butch farrar MD PCP: Dr. Nikky Pillai MD Status:ADM IN Location: [facility] HH712-1 Subjective Subjective Doing well, no issues overnight. Plan for EGD today Objective Data Objective Data Vital Signs: Vital Signs Temp Pulse Resp BP Pulse Ox O2 Del Method 97.2 F L 52 L 16 117/76 100 Room Air 12/20/22 09:15 12/20/22 09:15 12/20/22 09:15 12/20/22 09:15 12/20/22 09:15 12/20/22 09:15 Oxygen Delivery Method Room Air Weight: 117 lb 15.157 oz Body Mass Index (BMI) 21.7 Intake & Output: Intake and Output for Last 24 Hours 12/19/22 12/20/22 12/21/22 03:59 03:59 03:59 Intake Total 1171.5 / 1171.5 3753.75 / 3753.75 505.83 / 505.83 Output Total 100 / 100 Balance 1171.5 / 1171.5 3753.75 / 3753.75 405.83 / 405.83 Medical Nutrition Assessment Dietitian: Malnutrition Criteria Met Start: 12/19/22 12:01 Freq: Status: Active Protocol: Document 12/19/22 16:51 RMA (Rec: 12/19/22 16:53 RMA [id number]) Nutrition Malnutrition Evidence of Malnutrition Exists Yes Malnutrition (severe): Acute Illness/Injury Evidenced By Suboptimal Energy Intake ( Severe),Weight Loss (Severe) Intake Problem Inadequate Oral Intake Etiology related to altered GI function Signs/Symptoms as evidenced by NPO/clear liquid diet Status Active Problem Clinical Problem Acute Disease or Injury Related Malnutrition Etiology Severe protein-calorie malnutrition in the context of acute disease related to inadequate oral intake and altered GI function Signs/Symptoms as evidenced by ~12% weight loss and PO meeting less than 50% estimated nutrition needs x past 4 months Status Active Problem Recommendation Dietitian Recommendations/Changes Recommend fiber/fat restricted diet as tolerated. Will add 120ml ensure clear 4 times per day w/ medpass as tolerated. Consider parenteral nutrition support if unable to advance diet in next 24-48 hours. Further diet education and ONS samples prior to d/c. Encouraged to call RD as needed. Lab / Micro Data Result Diagrams: 12/20/22 06:40 12/20/22 05:50 Labs: Laboratory Results - last 24 hr 12/20/22 05:50: WBC Cancelled, Corrected WBC Cancelled, RBC Cancelled, Hgb Cancelled, Hct Cancelled, MCV Cancelled, MCH Cancelled, MCHC Cancelled, RDW Std Deviation Cancelled, RDW Coeff of Brian Cancelled, Plt Count Cancelled, MPV Cancelled, Immature Gran % (Auto) Cancelled, Neut % (Auto) Cancelled, Lymph % (Auto) Cancelled, Lynn % (Auto) Cancelled, Eos % (Auto) Cancelled, Baso % (Auto)Cancelled, Absolute Neuts (auto) Cancelled, Absolute Lymphs (auto) Cancelled, Total Counted Cancelled, Neutrophils % (Manual) Cancelled, Band Neutrophils % Cancelled, Lymphocytes % (Manual) Cancelled, Monocytes % (Manual) Cancelled, Eosinophils % (Manual) Cancelled, Basophils % (Manual) Cancelled, Metamyelocytes% Cancelled, Myelocytes % Cancelled, Promyelocytes % Cancelled, Blast Cells % Cancelled, Plasma Cell % (Manual) Cancelled, Other Cells % Cancelled, Nucleated RBC % Cancelled, Nucleated RBCs/100 WBC Cancelled, Differential Comment Cancelled, Diff Path Review Cancelled, Hypersegmented Neuts Cancelled, Atypical Lymphocytes Cancelled, Reactive Lymphocytes Cancelled, Smudge Cells Cancelled, Toxic Granulation Cancelled, Toxic Vacuolation Cancelled, Dohle Bodies Cancelled, Guillaume Rods Cancelled, Platelet Estimate Cancelled, Plt Morphology Comment Cancelled, RBC Morphology Cancelled, Polychromasia Cancelled, Hypochromasia Cancelled, Poikilocytosis Cancelled, Basophilic Stippling Cancelled, Anisocytosis Cancelled, Microcytosis Cancelled, Macrocytosis Cancelled, Spherocytes Cancelled, Sickle Cells Cancelled, Target Cells Cancelled, Tear Drop Cells Cancelled, Ovalocytes Cancelled, Stomatocytes Cancelled, Mcmahan-Rudy Bodies Cancelled, Glendale Cells Cancelled, Bite Cells Cancelled, Crenated Cell Cancelled, Acanthocytes (Spur) Cancelled, Rouleaux Cancelled, Schistocytes Cancelled 12/20/22 05:50: Sodium 142, Potassium 4.1, Chloride 116 H, Carbon Dioxide 20.0 L, Anion Gap 6, BUN 9, Creatinine 1.05 H, Estim Creat Clear Calc 49.98, Est GFR (MDRD) Af Amer 72, Est GFR (MDRD) Non-Af 60, BUN/Creatinine Ratio 8.6 L, [id number] H, Calcium 8.8 12/20/22 05:50: APTT Cancelled 12/20/22 06:40: WBC 3.1 L, RBC 4.20, Hgb 11.9 L, Hct 37.2, MCV 88.6, MCH 28.3, MCHC 32.0, RDW Std Deviation 39.8, RDW Coeff of Brian 12.2, Plt Count 139 L, MPV 9.9, Immature Gran % (Auto) 0.300, Neut % (Auto) 76.4 H, Lymph % (Auto) 20.7, Lynn % (Auto) 2.6, Eos % (Auto) 0.0, Baso % (Auto) 0.0, Absolute Neuts (auto) 2.3, Absolute Lymphs (auto) 0.63 L, Nucleated RBC % 0 12/20/22 06:40: APTT 37.9 H Radiography Diagnostic Testing: Radiology Impression KUB X-Ray 12/19/22 15:30 IMPRESSION: Recommend further advancing the endogastric tube. Electronically Signed: Chad Davis MD at 16:11 EST , KUB X-Ray 12/19/22 17:00 IMPRESSION: There is a feeding tube/ nasogastric tube noted. The tip is in the region of the stomach. Electronically Signed: Ivan Chen MD at 17:26 EST , Physical Exam Narrative General: Alert, Oriented x3, Cooperative, No apparent distress HEENT: Atraumatic, PERRLA, EOMI, Normocephalic, NG tube in place Oral: Moist Mucosa Neck: Supple, No JVD Lungs: Clear to auscultation, Normal air movement, No rhonchi, No wheeze, No rales Cardiovascular: Regular rate, Regular Rhythm, Normal S1, Normal S2, No murmurs Abdomen: Soft, mild tender epigastric, Non-Distended, No Hepato-splenomegaly Extremities: No edema, Capillary Refill Less than 3 Seconds Skin: No rashes, No breakdown Musculoskeletal: No Tenderness to Palpation of Joints or Extremities Neurological: Cranial nerves II-XII grossly intact, Motor Exam 5/5 strength throughout, Sensory exam intact to light touch and pain Psych/Mental Status: Normal Affect, Appropriate Assessment & Plan Assessment/Plan (1) Abdominal pain: (2) Intractable nausea and vomiting: (3) Common bile duct dilatation: (4) Elevated serum creatinine: PLAN: Plan 1. Abdominal pain with intractable nausea and vomiting secondary to chronic gastroparesis ? Her common bile duct is 9 mm which is within the normal range postcholecystectomy, MRCP was unremarkable ? Continue with antiemetics as well as IV fluids ? Continue with GI consultation, appreciate assistance ? Plan for EGD with possible Botox injection today ? She is allergic to a lot of medications including scopolamine, Reglan, and erythromycin so I discussed with her expectations on being able to completely resolve her symptoms 2. Anxiety/insomnia/migraine headaches ? Stable ? Continue with her home medications DVT: Heparin Charges/Coding Visit Charges Inpatient E&M: 55202 Subs Hosp L2 12/20/22 1345 <Electronically signed by Butch Dinero MD> Cosigner Signature (if applicable): CC: ~ Signed [facility] Work Phone: 1(265) 492-961703-03-2023 Procedure [facility] 12-20-2022 Procedure [facility]03-02-2023 Consult note Author Jamie Friend [facility] December 19, 2022 5:58pm Note Date/Time December 19, 2022 5:03 pm [facility] Medical Records Department [address] [place] [address] Consultation - GI 12/19/22 1657 MR#: [id number] Acct: [id number] Name: AKIL MICHELLE Rep #:[id number] : 1975 47 From: Jamie Friend DO PCP: Dr. Nikky Pillai MD Status:ADM IN Location: CT3 [id number] HPI Consult Data Date of Consult: 12/19/22 HPI Narrative Reason for Consultation: Nausea and vomiting HPI Narrative: AKIL MICHELLE, is a 47 F who presents to the ED with worsening abdominal pain followed by nausea vomiting. She has a 5-month history of recurrent vomiting. This was associated with nausea. He would vomit at least 5 times per day. The vomitus was non-projectile, would usually take the colour of the food eaten and was never bilious. There is also a history of abdominal pain, dysphagia, fever or headache. The colour of stools was normal but she had complained of constipation for 6 days prior to admission. SHe also admitted to weight loss, which could not be quantified. She had a CT scan of the abdomen pelvis that did show constipation approximately1 week ago. She came back into the hospital as she had worsening bloating and abdominal pain. She got an upright KUB which had shown diffuse ileus. She takes 2 mg of Klonopin at night and 1 mg of Klonopin during the morning for a history of chronic migraines. She also takes other medicines and has done multiple Botox injections and IV medicines for severe migraines. We got to know her several months ago for a problem with hiccups. She underwent an upper endoscopy and was discovered to have a small hiatal hernia but she had food in her stomach. She underwent esophageal manometry and was diagnosed as abnormal esophageal dysmotility disorder. She underwent a gastric emptying study and had a 1 hour emptying time at 91% and a T half of 311 minutes. She was diagnosed with severe gastroparesis. She was not able to be treated with metoclopramide therapy due to heart racing when she tried the medicine. She had multiple drug allergies diagnosed with most that causing a side effect of nausea. She currently is at 117 pounds and has lost approximately 12 pounds over the last 9 days. She says her main problem is abdominal pain when she tries to eat. Prior to attending [facility] he had been seen in several health facilities and had been treated with promethazine, but had had no relief of his symptoms. An endoscopy done at another hospital was documented as follows: ?endoscopy shows reflux oesophagitis and lax lower oesophageal sphincter? There was no comment onwhether there were structural abnormalities at the level of the pylorus or duodenum. He had been diagnosed with type 2 diabetes mellitus in September 2010 on the basis of high random blood glucose readings. He had been prescribed glibenclamide but stopped as he felt it was making him vomit more, and was now only taking metformin. Blood glucose measurements since the start of treatment were not available so we do not know how well the diabetes had been controlled. She has no alcohol consumption. She has no history of smoking. She is with 3 children. There was no family history of diabetes. [facility] Medical History Alcohol use Anxiety Blackout Bradycardia Cardiology follow-up encounter Choledocholithiasis Cholelithiasis DUB (dysfunctional uterine bleeding) Easy bruising Hemiplegic migraine History of echocardiogram History of Holter monitoring History of kidney stones Insomnia Migraines Mycobacterial pneumonia Non-smoker Syncope Home Medications cholecalciferol (vitamin D3) 25 mcg (1,000 unit) tablet 1,000 units PO DAILY supplement 12/25/18 [History Last Taken 12/18/22] tizanidine 4 mg capsule 4 mg PO DAILY PRN PRN Migraine Symptoms 12/25/18 [History Last Taken 02/20/22] magnesium oxide 500 mg capsule 500 mg PO BID supplement 11/11/19 [History Last Taken 12/18/22] biotin 10,000 mcg capsule 10,000 mcg PO DAILY hair loss 09/15/20 [History Last Taken 12/18/22] aspirin 81 mg tablet,delayed release 81 mg PO DAILY blood thinner 02/13/22 [History Last Taken 12/18/22] eptinezumab-jjmr 100 mg/mL intravenous solution (Vyepti) 100 mg .Route [id number] migraines 02/13/22 [History Last Taken 09/25/22] levonorgestrel 21 mcg/24 hours (8 yrs) 52 mg intrauterine device (Mirena) 1 device intrauterine ONCE control 02/13/22 [History Last Taken 02/20/22] omega-3 fatty acids-vitamin E 1,000 mg capsule 1,000 cap PO DAILY supplement 02/18/22 [History Last Taken 12/18/22] promethazine 25 mg tablet 25 mg PO PRN PRN Nausea 02/18/22 [History Last Taken 02/20/22] clonazepam 2 mg tablet 2 mg PO QHS sleep 02/20/22 [History Last Taken 12/17/22] topiramate 200 mg tablet 50 mg PO QHS migraine 05/29/22 [History Last Taken 12/17/22] trazodone 50 mg tablet 50 mg PO QHS sleep 05/29/22 [History Last Taken 12/17/22] famotidine 20 mg tablet 20 mg PO QHS #30 tabs 09/30/22 [Rx Last Taken 12/17/22] linaclotide 72 mcg capsule (Linzess) 72 mcg PO DAILY #30 caps 09/30/22 [Rx Last Taken 12/18/22] zzsssm-qacepwff-rptgdor 40,000-126,000-168,000 unit capsule, delay rel (Zenpep) 3 cap PO TID #320 caps 10/07/22 [Rx Last Taken 12/18/22] pantoprazole 40 mg tablet,delayed release (Protonix) 40 mg PO DAILY #30 tabs 11/15/22 [Rx Last Taken 12/18/22] promethazine 25 mg rectal suppository 25 mg VT Q6H PRN nausea and vomiting #12 ea 12/12/22 [Rx Last Taken Unknown] Qulipta 60 mg PO/SL DAILY migraines 12/18/22 [History Last Taken 12/18/22] Zyrtec 20 mg PO/SL QHS allergies 12/18/22 [History Last Taken 12/17/22] levomefolate calcium 15 mg tablet (L-Methylfolate) 15 mg PO DAILY supplement 12/18/22 [History Last Taken 12/18/22] Allergy/AdvReac Type Severity Reaction Status Date / Time erythromycin base AdvReac Nausea Verified 12/12/22 16:19 [Erythromycin Base] hydrocodone bitartrate AdvReac Other Verified 12/12/22 16:19 [From Vicodin] Family History Father MVP (mitral valve prolapse) Surgical History H/O unilateral oophorectomy History of bilateral salpingectomy History of cholecystectomy History of lithotripsy Social History (Updated 12/18/22 @ 19:[address] Silvia Coates, DO) household members: spouse housing: house Smoking Status: Never smoker alcohol intake: never substance use type: does not use ROS Review of Systems ROS Unobtainable: other Constitutional Constitutional: Denies fatigue, fever(s), poor appetite, weight gain or weight loss ENT HEENT: Denies mouth lesions Cardiovascular Cardiovascular: Denies abdominal bloating, abdominal edema or abdominal pain Respiratory/Chest Respiratory/Chest: Denies change in mental status, change in phlegm color, chestcongestion or chest tightness Gastrointestinal Gastrointestinal: Denies belching, bloating, change in bowel habits, change in stool character, chewing difficulty, coffee ground emesis, constipation, cramping, diarrhea, dyspepsia, dysphagia, early satiety, excessive flatus, fecalincontinence, heartburn, hematemesis, hematochezia, hemorrhoids, loose stools, melena, nausea, odynophagia, rectal bleeding, tenesmus, vomiting or weight changes Genitourinary Genitourinary: Denies abdominal discomfort, burning urination or itching Musculoskeletal Musculoskeletal: Reports as per HPI; Denies muscle weakness or myalgias Integumentary Integumentary: Denies jaundice Neurologic Neurologic: Denies lack of coordination or weakness Psychiatric Psychiatric: Denies confusion, depression, memory loss, mood swings, paranoia orsuicidal ideation Endocrine Endocrinology: Denies systems reviewed and no addt'l complaints, except as documented Hematologic/Lymphatic Hematologic/Lymphatic: Denies anemia, easy bleeding, easy bruising or lymphadenopathy Allergic/Immunologic Allergic/Immunologic: Denies systems reviewed and no addt'l complaints, except as documented Physical Exam Narrative General: Alert, Oriented x3, Cooperative, No apparent distress HEENT: Atraumatic, PERRLA, EOMI, Normocephalic Oral: Moist Mucosa Neck: Supple, No JVD Lungs: Clear to auscultation, Normal air movement, No rhonchi, No wheeze, No rales Cardiovascular: Regular rate, Regular Rhythm, Normal S1, Normal S2, No murmurs Abdomen: Soft, mild tender epigastric, Non-Distended, No Hepato-splenomegaly Extremities: No edema, Capillary Refill Less than 3 Seconds Skin: No rashes, No breakdown Musculoskeletal: No Tenderness to Palpation of Joints or Extremities Neurological: Cranial nerves II-XII grossly intact, Motor Exam 5/5 strength throughout, Sensory exam intact to light touch and pain Psych/Mental Status: Normal Affect, Appropriate Medical Records Data Medical Nutrition Assessment Dietitian: Malnutrition Criteria Met Start: 12/19/22 12:01 Freq: Status: Active Protocol: Document 12/19/22 16:51 RMA (Rec: 12/19/22 16:53 RMA [id number]) Nutrition Malnutrition Evidence of Malnutrition Exists Yes Malnutrition (severe): Acute Illness/Injury Evidenced By Suboptimal Energy Intake ( Severe),Weight Loss (Severe) Intake Problem Inadequate Oral Intake Etiology related to altered GI function Signs/Symptoms as evidenced by NPO/clear liquid diet Status Active Problem Clinical Problem Acute Disease or Injury Related Malnutrition Etiology Severe protein-calorie malnutrition in the context of acute disease related to inadequate oral intake and altered GI function Signs/Symptoms as evidenced by ~12% weight loss and PO meeting less than 50% estimated nutrition needs x past 4 months Status Active Problem Recommendation Dietitian Recommendations/Changes Recommend fiber/fat restricted diet as tolerated. Will add 120ml ensure clear 4 times per day w/ medpass as tolerated. Consider parenteral nutrition support if unable to advance diet in next 24-48 hours. Further diet education and ONS samples prior to d/c. Encouraged to call RD as needed. Lab / Micro Data Result Diagrams: 12/18/22 11:31 12/19/22 05:35 Labs: Laboratory Results - last 24 hr 12/18/22 16:56: POC Glucose 71 L 12/19/22 05:35: Sodium 142, Potassium 3.5, Chloride 112 H, Carbon Dioxide 23.0, Anion Gap 7, BUN 17, Creatinine 1.16 H, Estim Creat Clear Calc 47.42, Est GFR (MDRD) Af Amer 64, Est GFR (MDRD) Non-Af 53 L, BUN/Creatinine Ratio 14.7, Glucose 123 H, Calcium 8.7, Magnesium 2.4, Total Bilirubin 0.20, AST 20, ALT 96 H, Alkaline Phosphatase 107, Total Protein 5.4 L, Albumin 3.0 L, Globulin 2.4, Albumin/Globulin Ratio 1.2, TSH 6.37 H 12/19/22 05:35: Phosphorus 2.9 Radiology Impression MRCP 12/19/22 09:00 IMPRESSION: 1. 12 mm common bile duct without evidence of an obstructing stone or mass. 2. Large bowel ileus. Electronically Signed: Chad Davis MD at 10:21 EST , KUB X-Ray 12/19/22 15:30 IMPRESSION: Recommend further advancing the endogastric tube. 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 Weber principles in the management of gastroparesis are the correction of exacerbating factors, including optimization of glucose and electrolyte levels, the provision of nutritional support, the use of prokinetic and symptomatic therapies and counselling. She agreed to have a NG tube with Dobbhoff tube placed for not only improvement of nausea but also for nutritional support. She also agreed to getting azithromycin to increase her more alert and complex after she was given H2 receptor cecy, steroids and Benadryl. I also went over the medical and surgical modalities for severe gastroparesis. I told her at this institution wecan do an upper endoscopy with Botox but if that is unsuccessful then we will need to refer her to a gastroparesis center of excellence. Metoclopramide, domperidone and erythromycin are the commonest prokinetic drugs used in gastroparesis. Erythromycin interacts with the motilin receptor and may promote gastric emptying. Studies have shown these agents to increase gastric emptying. When pain relief is required, tramadol and opiates should be avoided. These have inhibiting effects on motility. 1. Abdominal pain with intractable nausea and vomiting secondary to chronic gastroparesis ? Her common bile duct is 9 mm which is within the normal range postcholecystectomy, MRCP pending ? Continue with antiemetics as well as IV fluids ? Continue with GI consultation, appreciate assistance ? She states that she is supposed to have an outpatient EGD with Botox injections to try to help with her gastroparesis ? She is allergic to a lot of medications including scopolamine, Reglan, and erythromycin so I discussed with her expectations on being able to completely resolve her symptoms 2. Anxiety/insomnia/migraine headaches ? Stable ? Continue with her home medications DVT: Heparin Charges/Coding Visit Charges Inpatient E&M: 31208 Init Hosp L3 12/19/22 0788 <Electronically signed by Jamie Cuevas DO> Cosigner Signature (if applicable): CC: Dr. Nikky Pillai MD; Dr. Silvia Coates DO; Jamie Cuevas DO~ Signed [facility] Work Phone: 1(818) 483-524703-02-[address] Dinero [facility] December 19, 2022 9:13am Note Date/Time December 19, 2022 9:13 am [facility] Medical Records Department [address] [place] [id number] Progress Note - Hospitalist 12/19/22 0909 MR#: [id number] Acct: [id number] Name: AKIL MICHELLE Rep #:[id number] : 1975 47 From: Butch farrar MD PCP: Dr. Nikky Pillai MD Status:ADM JOHNNY Location: CT3 [id number] Subjective Subjective No longer vomiting but she is having continued nausea. Abdominal pain is mild and epigastric Objective Data Objective Data Vital Signs: Vital Signs Temp Pulse Resp BP Pulse Ox O2 Del Method 97.9 F 55 L 16 92/60 100 Room Air 12/19/22 05:00 12/19/22 05:00 12/19/22 05:00 12/19/22 05:00 12/19/22 05:00 12/19/22 05:00 Oxygen Delivery Method Room Air Weight: 117 lb 15.157 oz Body Mass Index (BMI) 21.5 Intake & Output: Intake and Output for Last 24 Hours 12/18/22 12/19/22 12/20/22 03:59 03:59 03:59 Intake Total 1171.5 / 1171.5 981.25 / 981.25 Balance 1171.5 / 1171.5 981.25 / 981.25 Lab / Micro Data Result Diagrams: 12/18/22 11:31 12/19/22 05:35 Labs: Laboratory Results - last 24 hr 12/18/22 11:31: WBC 4.9, RBC 4.85, Hgb 13.9, Hct 42.2, MCV 87.0, MCH 28.7, MCHC 32.9, RDW Std Deviation 38.8, RDW Coeff of Brian 12.1, Plt Count 175, MPV 9.7, Immature Gran % (Auto) 0.200, Neut % (Auto) 58.5, Lymph % (Auto) 31.9, Lynn % (Auto) 7.4, Eos % (Auto) 1.4, Baso % (Auto) 0.6, Absolute Neuts (auto) 2.9, Absolute Lymphs (auto) 1.56, Nucleated RBC % 0 12/18/22 11:31: Sodium 140, Potassium 3.8, Chloride 108 H, Carbon Dioxide 23.0, Anion Gap 9, BUN 22 H, Creatinine 1.44 H, Estim Creat Clear Calc 38.20, Est GFR (MDRD) Af Amer 50 L, Est GFR (MDRD) Non-Af 41 L, BUN/Creatinine Ratio 15.3, Glucose 73 L, Calcium 10.0, Total Bilirubin 0.50, AST 28, ALT 141 H, Alkaline Phosphatase 145 H, Total Protein 7.2, Albumin 4.2, Globulin 3.0, Albumin/Globulin Ratio 1.4, Lipase 372 12/18/22 16:56: POC Glucose 71 L 12/19/22 05:35: Sodium 142, Potassium 3.5, Chloride 112 H, Carbon Dioxide 23.0, Anion Gap 7, BUN 17, Creatinine 1.16 H, Estim Creat Clear Calc 47.42, Est GFR (MDRD) Af Amer 64, Est GFR (MDRD) Non-Af 53 L, BUN/Creatinine Ratio 14.7, Glucose 123 H, Calcium 8.7, Magnesium 2.4, Total Bilirubin 0.20, AST 20, ALT 96 H, Alkaline Phosphatase 107, Total Protein 5.4 L, Albumin 3.0 L, Globulin 2.4, Albumin/Globulin Ratio 1.2, TSH 6.37 H 12/19/22 05:35: Phosphorus 2.9 Radiography Diagnostic Testing: Radiology Impression Abdomen Ultrasound 12/18/22 12:46 IMPRESSION: Status post cholecystectomy. Mildly dilated common bile duct measuring 9 mm. Electronically Signed: Chirag Mock MD at 13:54 EST Reading Location ID and State: [address] [place] [address] , Service support , Physical Exam Narrative General: Alert, Oriented x3, Cooperative, No apparent distress HEENT: Atraumatic, PERRLA, EOMI, Normocephalic Oral: Moist Mucosa Neck: Supple, No JVD Lungs: Clear to auscultation, Normal air movement, No rhonchi, No wheeze, No rales Cardiovascular: Regular rate, Regular Rhythm, Normal S1, Normal S2, No murmurs Abdomen: Soft, mild tender epigastric, Non-Distended, No Hepato-splenomegaly Extremities: No edema, Capillary Refill Less than 3 Seconds Skin: No rashes, No breakdown Musculoskeletal: No Tenderness to Palpation of Joints or Extremities Neurological: Cranial nerves II-XII grossly intact, Motor Exam 5/5 strength throughout, Sensory exam intact to light touch and pain Psych/Mental Status: Normal Affect, Appropriate Assessment & Plan Assessment/Plan (1) Abdominal pain: (2) Intractable nausea and vomiting: (3) Common bile duct dilatation: (4) Elevated serum creatinine: PLAN: Plan 1. Abdominal pain with intractable nausea and vomiting secondary to chronic gastroparesis ? Her common bile duct is 9 mm which is within the normal range postcholecystectomy, MRCP pending ? Continue with antiemetics as well as IV fluids ? Continue with GI consultation, appreciate assistance ? She states that she is supposed to have an outpatient EGD with Botox injections to try to help with her gastroparesis ? She is allergic to a lot of medications including scopolamine, Reglan, and erythromycin so I discussed with her expectations on being able to completely resolve her symptoms 2. Anxiety/insomnia/migraine headaches ? Stable ? Continue with her home medications DVT: Heparin Charges/Coding Visit Charges Inpatient E&M: 80035 Subs Hosp L2 12/19/22 0906 <Electronically signed by Butch Dinero MD> Cosigner Signature (if applicable): CC: ~ Signed [facility] Work Phone: 1(669) 847-697603-01-2023 History and physical note Author Dr. Coates [facility] December 18, 2022 8:04pm Note Date/Time December 18, 2022 6:35 pm [facility] Medical Records Department [address] [place] [address] H&P Exam - Hospitalist 12/18/22 1832 MR#: [id number] Acct: [id number] Name: AKIL MICHELLE Rep #:[id number] : 1975 47 From: Silvia Coates DO PCP: Dr. Nikky Pillai MD Status:ADM JOHNNY Location: [facility] PI027-0 HPI - General General Date of Admission: 12/18/22 Date of Service: 12/18/22 Chief Complaint: Intractable Nausea and Vomiting HPI Narrative AKIL MICHELLE, is a 47 F who presented to the emergency department [facility] on 12/18/2022 with intractable nausea and vomiting. Patient states that this has been ongoing for about 2 weeks. She has a history of gastroparesis that was diagnosed about a year ago by Dr. Cuevas. She has been compliant with her home medications. She states she is really not been able to eat or drink much for about 8 days now. She is able to take sips here and therebut not drink large volumes. She also complains of pain in the epigastric region of her abdomen. Nothing is really helped her thus far. She denies any fever or chills. She did take MiraLAX bowel prep recently per Dr. Cuevas's instruction to see if cleaning out her bowels would help with her nausea vomiting and had liquid bowel movements that were brown in nature with this but bowels have been normal otherwise. I did discuss the case with Dr. 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 Patient does take benzos on a regular basis 2 mg of Klonopin daily with 1 mg as needed. She has previous cholecystectomy she thinks about 5 years ago. Vital signs at the time of presentation showed temperature of 98, heart rate 89,blood pressure 142/97, respirate 14, oxygen saturations 100% on room air. CBC was unremarkable. Her chemistry panel shows normal electrolytes other than somemild hyperchloremia at 108 and a BUN of 22 and a serum creatinine of 1.44. Thisappears to be close to where she has been running lately however I am not clear if she is chronically dehydrated because her serum creatinine has been better prior to this. Glucose was 73. Her ALT was 141 with a normal AST and her alk phos was 145. Lipase was 372. Abdominal ultrasound demonstrated that she was status postcholecystectomy but had a mildly dilated common bile duct at 9 mm. [facility] Medical History Alcohol use Anxiety Blackout Bradycardia Cardiology follow-up encounter Choledocholithiasis Cholelithiasis DUB (dysfunctional uterine bleeding) Easy bruising Hemiplegic migraine History of echocardiogram History of Holter monitoring History of kidney stones Insomnia Migraines Mycobacterial pneumonia Non-smoker Syncope Home Medications cholecalciferol (vitamin D3) 25 mcg (1,000 unit) tablet 1,000 units PO DAILY supplement 12/25/18 [History Last Taken 02/20/22] folic acid 1 mg tablet 2 mg PO DAILY supplement 12/25/18 [History Last Taken 02/20/22] tizanidine 4 mg capsule 4 mg PO DAILY PRN PRN Migraine Symptoms 12/25/18 [History Last Taken 02/20/22] magnesium oxide 500 mg capsule 500 mg PO BID supplement 11/11/19 [History Last Taken 02/20/22] biotin 10,000 mcg capsule 10,000 mcg PO DAILY 09/15/20 [History Last Taken 02/20/22] aspirin 81 mg tablet,delayed release 81 mg PO DAILY 02/13/22 [History Last Taken 02/20/22] eptinezumab-jjmr 100 mg/mL intravenous solution (Vyepti) 100 mg .Route [id number] 02/13/22 [History Last Taken 02/20/22] levonorgestrel 21 mcg/24 hours (8 yrs) 52 mg intrauterine device (Mirena) 1 device intrauterine ONCE 02/13/22 [History Last Taken 02/20/22] mecobalamin (vitamin B12) 1,000 mcg disintegrating tablet,sublingual 1,000 mcg sublingual DAILY 02/13/22 [History Last Taken 02/20/22] oxycodone-acetaminophen 10 mg-325 mg tablet 1 tab PO BID PRN Pain 02/13/22 [History Last Taken 02/20/22] ubrogepant 100 mg tablet 100 mg PO PRN PRN Migraine Headache 02/13/22 [History Last Taken 02/20/22] omega-3 fatty acids-vitamin E 1,000 mg capsule 1,000 cap PO DAILY 02/18/22 [History Last Taken 02/20/22] promethazine 25 mg tablet 25 mg PO PRN PRN NAUSES 02/18/22 [History Last Taken 02/20/22] clonazepam 2 mg tablet 2 mg PO DAILY 02/20/22 [History Last Taken 02/20/22] topiramate 200 mg tablet 50 mg PO QHS migraine 05/29/22 [History Last Taken Unknown] trazodone 50 mg tablet 50 mg PO QHS 05/29/22 [History Last Taken Unknown] benzonatate 200 mg capsule 200 mg PO BID-TID PRN cough #30 caps 06/23/22 [Rx Last Taken Unknown] prednisone 10 mg tablet 10 mg PO DAILY #8 tabs 06/23/22 [Rx Last Taken Unknown] naproxen 500 mg tablet 500 mg PO BID PRN #20 tabs 08/18/22 [Rx Last Taken Unknown] clonazepam 1 mg tablet 1 mg PO QAM PRN hiccups #30 tabs 09/30/22 [Rx Last Taken Unknown] famotidine 20 mg tablet 20 mg PO QHS #30 tabs 09/30/22 [Rx Last Taken Unknown] linaclotide 72 mcg capsule (Linzess) 72 mcg PO DAILY #30 caps 09/30/22 [Rx Last Taken Unknown] hqaisz-yovlpbwu-lupzspl 40,000-126,000-168,000 unit capsule, delay rel (Zenpep) 3 cap PO TID #320 caps 10/07/22 [Rx Last Taken Unknown] pantoprazole 40 mg tablet,delayed release (Protonix) 40 mg PO DAILY #30 tabs 11/15/22 [Rx Last Taken Unknown] promethazine 25 mg rectal suppository 25 mg VT Q6H PRN nausea and vomiting #12 ea 12/12/22 [Rx Last Taken Unknown] scopolamine base 1 mg over 3 days transdermal patch 1 patch transdermal Q3D PRN nausea and vomiting #10 ea 12/13/22 [Rx Last Taken Unknown] Qulipta 60 mg 12/18/22 [History Last Taken Unknown] Zyrtec 20 mg 12/18/22 [History Last Taken Unknown] Allergy/AdvReac Type Severity Reaction Status Date / Time erythromycin base AdvReac Nausea Verified 12/12/22 16:19 [Erythromycin Base] hydrocodone bitartrate AdvReac Other Verified 12/12/22 16:19 [From Vicodin] Family History Father MVP (mitral valve prolapse) Surgical History H/O unilateral oophorectomy History of bilateral salpingectomy History of cholecystectomy History of lithotripsy Social History (Updated 12/18/22 @ 19:[address] Silvia Coates DO) household members: spouse housing: house Smoking Status: Never smoker alcohol intake: never substance use type: does not use Vital Signs Vital Signs Vital Signs: 12/18/22 10:24 12/18/22 10:28 12/18/22 12:25 Temperature 98 F 97.7 F L 98.3 F Temperature Source Temporal Temporal Temporal Pulse Rate 89 79 64 Respiratory Rate 14 16 16 Blood Pressure 142/97 H 121/84 H 108/75 Blood Pressure Mean 112 96 86 Pulse Ox 100 99 100 Oxygen Delivery Method Room Air Room Air Room Air 12/18/22 12:27 12/18/22 13:39 12/18/22 15:07 Temperature 98 F 98 F Temperature Source Temporal Temporal Pulse Rate 64 66 66 Respiratory Rate 16 16 16 Blood Pressure 108/75 111/77 121/77 H Blood Pressure Mean 86 88 91 Pulse Ox 100 100 97 Oxygen Delivery Method Room Air Room Air Room Air 12/18/22 15:08 12/18/22 16:30 12/18/22 16:31 Temperature 98 F Temperature Source Temporal Pulse Rate 66 67 67 Respiratory Rate 16 16 16 Blood Pressure 121/77 H 94/62 94/62 Blood Pressure Mean 91 72 72 Pulse Ox 97 96 96 Oxygen Delivery Method Room Air Room Air Room Air 12/18/22 18:14 12/18/22 18:14 Temperature 97.8 F Temperature Source Temporal Pulse Rate 69 69 Respiratory Rate 16 16 Blood Pressure 105/64 105/64 Blood Pressure Mean 77 77 Pulse Ox 96 Oxygen Delivery Method Room Air Weight Weight: 53.3 kg Body Mass Index (BMI) 21.4 Physical Exam Const alert, oriented x3 and no apparent distress Constitutional Narrative: Thin, middle-aged, white female, sitting up in bed, home examined at bedside, appears comfortable and nontoxic at this time General Appearance: cooperative HEENT normocephalic, head/scalp atraumatic and hearing grossly normal bilaterally HEENT Narrative: Mucous membranes appear slightly dry, Mallampati is 2, no thrush Eyes PERRL, EOMs intact bilaterally and conjunctivae normal Eyes Narrative: No scleral icterus Resp normal respiratory effort, no retractions, no use of accessory muscles and clearto auscultation bilaterally Auscultation: Negative for rales, rhonchi or wheezes Cardio regular rate, regular rhythm, S1 normal heart sound, S2 normal heart sound, no murmurs, no rub, no gallops and no clicks GI normal to inspection, nondistended, normoactive bowel sounds, soft to palpation and non-distended GI Narrative: Mild tenderness noted in the epigastrium with no radiation Extremity no clubbing, cyanosis or edema Extremity Narrative: 2+ pedal pulses Neuro oriented x3, CN's II-XII intact bilaterally, moves all extremities and no focal motor deficits Speech: speech normal Psych Psych Narrative: Affect is flat Mood & Affect: anxious Results Lab / Micro Data Result Diagrams: 12/18/22 11:31 12/18/22 11:31 Labs: Laboratory Results - last 24 hr 12/18/22 11:31: WBC 4.9, RBC 4.85, Hgb 13.9, Hct 42.2, MCV 87.0, MCH 28.7, MCHC 32.9, RDW Std Deviation 38.8, RDW Coeff of Brian 12.1, Plt Count 175, MPV 9.7, Immature Gran % (Auto) 0.200, Neut % (Auto) 58.5, Lymph % (Auto) 31.9, Lynn % (Auto) 7.4, Eos % (Auto) 1.4, Baso % (Auto) 0.6, Absolute Neuts (auto) 2.9, Absolute Lymphs (auto) 1.56, Nucleated RBC % 0 12/18/22 11:31: Sodium 140, Potassium 3.8, Chloride 108 H, Carbon Dioxide 23.0, Anion Gap 9, BUN 22 H, Creatinine 1.44 H, Estim Creat Clear Calc 38.20, Est GFR (MDRD) Af Amer 50 L, Est GFR (MDRD) Non-Af 41 L, BUN/Creatinine Ratio 15.3, Glucose 73 L, Calcium 10.0, Total Bilirubin 0.50, AST 28, ALT 141 H, Alkaline Phosphatase 145 H, Total Protein 7.2, Albumin 4.2, Globulin 3.0, Albumin/Globulin Ratio 1.4, Lipase 372 12/18/22 16:56: POC Glucose 71 L Radiology Impression Abdomen Ultrasound 12/18/22 12:46 IMPRESSION: Status post cholecystectomy. Mildly dilated common bile duct measuring 9 mm. Electronically Signed: Chirag Mock MD at 13:54 EST , Assessment & Plan Assessment/Plan (1) Abdominal pain: (2) Intractable nausea and vomiting: (3) Common bile duct dilatation: (4) Elevated serum creatinine: PLAN: Plan Abdominal pain/intractable nausea and vomiting -Etiology is unclear -MRCP with common bile duct dilation -Diet with clear liquid diets -D5 normal saline infusion at 125 cc/h -Antiemetics with Zofran and Compazine for breakthrough -As needed pain medication with morphine -Advance diet as able -GI consultation -Continue home medications as able for gastroparesis Common bile duct dilation -Anticipate this is likely related to her previous cholecystectomy however we will check an MRCP with her nausea vomiting and elevated alkaline phos/ALT Elevated serum creatinine -Baseline is unclear -Lately it appears that her serum creatinine has been fluctuant -We will high it and repeat in a.m. hopefully this will be able to establish a baseline Gastroparesis -Continue home medications Migraine headaches -Continue home medication -Continue home infusions after discharge -No current issue Anxiety/insomnia -Continue home medications -Would recommend tapering back on benzodiazepines and transition to a nonaddictive substance as I suspect this may be contributing to her abdominal pain nausea and vomiting DVT prophylaxis -Continue heparin 5000 units twice daily CODE STATUS Full code Charges/Coding Visit Charges Inpatient E&M: 69494 Init Hosp L2 12/18/222003 <Electronically signed by Silvia Coates DO> Cosigner Signature (if applicable): CC: Dr. Nikky Pillai MD; Dr. Silvia Coates DO~ Signed [facility] Work Phone: 1(163) 516-127503-01-2023 History and physical note Author Dr. Coates [facility] December 18, 2022 8:04pm Note Date/Time December 18, 2022 6:35 pm [facility] Medical Records Department [address] [place] [address] H&P Exam - Hospitalist 12/18/22 1832 MR#: [id number] Acct: [id number] Name: AKIL MICHELLE Rep #:[id number] : 1975 47 From: Silvia Coates DO PCP: Dr. Nikky Pilali MD Status:ADM JOHNNY [facility] - General General Date of Admission: 12/18/22 Date of Service: 12/18/22 Chief Complaint: Intractable Nausea and Vomiting HPI Narrative AKIL MICHELLE, is a 47 F who presented to the emergency department [facility] on 12/18/2022 with intractable nausea and vomiting. Patient states that this has been ongoing for about 2 weeks. She has a history of gastroparesis that was diagnosed about a year ago by Dr. Cuevas. She has been compliant with her home medications. She states she is really not been able to eat or drink much for about 8 days now. She is able to take sips here and therebut not drink large volumes. She also complains of pain in the epigastric region of her abdomen. Nothing is really helped her thus far. She denies any fever or chills. She did take MiraLAX bowel prep recently per Dr. Cuevas's instruction to see if cleaning out her bowels would help with her nausea vomiting and had liquid bowel movements that were brown in nature with this but bowels have been normal otherwise. I did discuss the case with Dr. 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 Patient does take benzos on a regular basis 2 mg of Klonopin daily with 1 mg as needed. She has previous cholecystectomy she thinks about 5 years ago. Vital signs at the time of presentation showed temperature of 98, heart rate 89,blood pressure 142/97, respirate 14, oxygen saturations 100% on room air. CBC was unremarkable. Her chemistry panel shows normal electrolytes other than somemild hyperchloremia at 108 and a BUN of 22 and a serum creatinine of 1.44. Thisappears to be close to where she has been running lately however I am not clear if she is chronically dehydrated because her serum creatinine has been better prior to this. Glucose was 73. Her ALT was 141 with a normal AST and her alk phos was 145. Lipase was 372. Abdominal ultrasound demonstrated that she was status postcholecystectomy but had a mildly dilated common bile duct at 9 mm. [facility] Medical History Alcohol use Anxiety Blackout Bradycardia Cardiology follow-up encounter Choledocholithiasis Cholelithiasis DUB (dysfunctional uterine bleeding) Easy bruising Hemiplegic migraine History of echocardiogram History of Holter monitoring History of kidney stones Insomnia Migraines Mycobacterial pneumonia Non-smoker Syncope Home Medications cholecalciferol (vitamin D3) 25 mcg (1,000 unit) tablet 1,000 units PO DAILY supplement 12/25/18 [History Last Taken 02/20/22] folic acid 1 mg tablet 2 mg PO DAILY supplement 12/25/18 [History Last Taken 02/20/22] tizanidine 4 mg capsule 4 mg PO DAILY PRN PRN Migraine Symptoms 12/25/18 [History Last Taken 02/20/22] magnesium oxide 500 mg capsule 500 mg PO BID supplement 11/11/19 [History Last Taken 02/20/22] biotin 10,000 mcg capsule 10,000 mcg PO DAILY 09/15/20 [History Last Taken 02/20/22] aspirin 81 mg tablet,delayed release 81 mg PO DAILY 02/13/22 [History Last Taken 02/20/22] eptinezumab-jjmr 100 mg/mL intravenous solution (Vyepti) 100 mg .Route [id number] 02/13/22 [History Last Taken 02/20/22] levonorgestrel 21 mcg/24 hours (8 yrs) 52 mg intrauterine device (Mirena) 1 device intrauterine ONCE 02/13/22 [History Last Taken 02/20/22] mecobalamin (vitamin B12) 1,000 mcg disintegrating tablet,sublingual 1,000 mcg sublingual DAILY 02/13/22 [History Last Taken 02/20/22] oxycodone-acetaminophen 10 mg-325 mg tablet 1 tab PO BID PRN Pain 02/13/22 [History Last Taken 02/20/22] ubrogepant 100 mg tablet 100 mg PO PRN PRN Migraine Headache 02/13/22 [History Last Taken 02/20/22] omega-3 fatty acids-vitamin E 1,000 mg capsule 1,000 cap PO DAILY 02/18/22 [History Last Taken 02/20/22] promethazine 25 mg tablet 25 mg PO PRN PRN NAUSES 02/18/22 [History Last Taken 02/20/22] clonazepam 2 mg tablet 2 mg PO DAILY 02/20/22 [History Last Taken 02/20/22] topiramate 200 mg tablet 50 mg PO QHS migraine 05/29/22 [History Last Taken Unknown] trazodone 50 mg tablet 50 mg PO QHS 05/29/22 [History Last Taken Unknown] benzonatate 200 mg capsule 200 mg PO BID-TID PRN cough #30 caps 06/23/22 [Rx Last Taken Unknown] prednisone 10 mg tablet 10 mg PO DAILY #8 tabs 06/23/22 [Rx Last Taken Unknown] naproxen 500 mg tablet 500 mg PO BID PRN #20 tabs 08/18/22 [Rx Last Taken Unknown] clonazepam 1 mg tablet 1 mg PO QAM PRN hiccups #30 tabs 09/30/22 [Rx Last Taken Unknown] famotidine 20 mg tablet 20 mg PO QHS #30 tabs 09/30/22 [Rx Last Taken Unknown] linaclotide 72 mcg capsule (Linzess) 72 mcg PO DAILY #30 caps 09/30/22 [Rx Last Taken Unknown] pmxdck-ujfxydfy-nwzenlk 40,000-126,000-168,000 unit capsule, delay rel (Zenpep) 3 cap PO TID #320 caps 10/07/22 [Rx Last Taken Unknown] pantoprazole 40 mg tablet,delayed release (Protonix) 40 mg PO DAILY #30 tabs 11/15/22 [Rx Last Taken Unknown] promethazine 25 mg rectal suppository 25 mg VT Q6H PRN nausea and vomiting #12 ea 12/12/22 [Rx Last Taken Unknown] scopolamine base 1 mg over 3 days transdermal patch 1 patch transdermal Q3D PRN nausea and vomiting #10 ea 12/13/22 [Rx Last Taken Unknown] Qulipta 60 mg 12/18/22 [History Last Taken Unknown] Zyrtec 20 mg 12/18/22 [History Last Taken Unknown] Allergy/AdvReac Type Severity Reaction Status Date / Time erythromycin base AdvReac Nausea Verified 12/12/22 16:19 [Erythromycin Base] hydrocodone bitartrate AdvReac Other Verified 12/12/22 16:19 [From Vicodin] Family History Father MVP (mitral valve prolapse) Surgical History H/O unilateral oophorectomy History of bilateral salpingectomy History of cholecystectomy History of lithotripsy Social History (Updated 12/18/22 @ 19:[address] Silvia Coates DO) household members: spouse housing: house Smoking Status: Never smoker alcohol intake: never substance use type: does not use Vital Signs Vital Signs Vital Signs: 12/18/22 10:24 12/18/22 10:28 12/18/22 12:25 Temperature 98 F 97.7 F L 98.3 F Temperature Source Temporal Temporal Temporal Pulse Rate 89 79 64 Respiratory Rate 14 16 16 Blood Pressure 142/97 H 121/84 H 108/75 Blood Pressure Mean 112 96 86 Pulse Ox 100 99 100 Oxygen Delivery Method Room Air Room Air Room Air 12/18/22 12:27 12/18/22 13:39 12/18/22 15:07 Temperature 98 F 98 F Temperature Source Temporal Temporal Pulse Rate 64 66 66 Respiratory Rate 16 16 16 Blood Pressure 108/75 111/77 121/77 H Blood Pressure Mean 86 88 91 Pulse Ox 100 100 97 Oxygen Delivery Method Room Air Room Air Room Air 12/18/22 15:08 12/18/22 16:30 12/18/22 16:31 Temperature 98 F Temperature Source Temporal Pulse Rate 66 67 67 Respiratory Rate 16 16 16 Blood Pressure 121/77 H 94/62 94/62 Blood Pressure Mean 91 72 72 Pulse Ox 97 96 96 Oxygen Delivery Method Room Air Room Air Room Air 12/18/22 18:14 12/18/22 18:14 Temperature 97.8 F Temperature Source Temporal Pulse Rate 69 69 Respiratory Rate 16 16 Blood Pressure 105/64 105/64 Blood Pressure Mean 77 77 Pulse Ox 96 Oxygen Delivery Method Room Air Weight Weight: 53.3 kg Body Mass Index (BMI) 21.4 Physical Exam Const alert, oriented x3 and no apparent distress Constitutional Narrative: Thin, middle-aged, white female, sitting up in bed, home examined at bedside, appears comfortable and nontoxic at this time General Appearance: cooperative HEENT normocephalic, head/scalp atraumatic and hearing grossly normal bilaterally HEENT Narrative: Mucous membranes appear slightly dry, Mallampati is 2, no thrush Eyes PERRL, EOMs intact bilaterally and conjunctivae normal Eyes Narrative: No scleral icterus Resp normal respiratory effort, no retractions, no use of accessory muscles and clearto auscultation bilaterally Auscultation: Negative for rales, rhonchi or wheezes Cardio regular rate, regular rhythm, S1 normal heart sound, S2 normal heart sound, no murmurs, no rub, no gallops and no clicks GI normal to inspection, nondistended, normoactive bowel sounds, soft to palpation and non-distended GI Narrative: Mild tenderness noted in the epigastrium with no radiation Extremity no clubbing, cyanosis or edema Extremity Narrative: 2+ pedal pulses Neuro oriented x3, CN's II-XII intact bilaterally, moves all extremities and no focal motor deficits Speech: speech normal Psych Psych Narrative: Affect is flat Mood & Affect: anxious Results Lab / Micro Data Result Diagrams: 12/18/22 11:31 12/18/22 11:31 Labs: Laboratory Results - last 24 hr 12/18/22 11:31: WBC 4.9, RBC 4.85, Hgb 13.9, Hct 42.2, MCV 87.0, MCH 28.7, MCHC 32.9, RDW Std Deviation 38.8, RDW Coeff of Brian 12.1, Plt Count 175, MPV 9.7, Immature Gran % (Auto) 0.200, Neut % (Auto) 58.5, Lymph % (Auto) 31.9, Lynn % (Auto) 7.4, Eos % (Auto) 1.4, Baso % (Auto) 0.6, Absolute Neuts (auto) 2.9, Absolute Lymphs (auto) 1.56, Nucleated RBC % 0 12/18/22 11:31: Sodium 140, Potassium 3.8, Chloride 108 H, Carbon Dioxide 23.0, Anion Gap 9, BUN 22 H, Creatinine 1.44 H, Estim Creat Clear Calc 38.20, Est GFR (MDRD) Af Amer 50 L, Est GFR (MDRD) Non-Af 41 L, BUN/Creatinine Ratio 15.3, Glucose 73 L, Calcium 10.0, Total Bilirubin 0.50, AST 28, ALT 141 H, Alkaline Phosphatase 145 H, Total Protein 7.2, Albumin 4.2, Globulin 3.0, Albumin/Globulin Ratio 1.4, Lipase 372 12/18/22 16:56: POC Glucose 71 L Radiology Impression Abdomen Ultrasound 12/18/22 12:46 IMPRESSION: Status post cholecystectomy. Mildly dilated common bile duct measuring 9 mm. Electronically Signed: Chirag Mock MD at 13:54 EST , Assessment & Plan Assessment/Plan (1) Abdominal pain: (2) Intractable nausea and vomiting: (3) Common bile duct dilatation: (4) Elevated serum creatinine: PLAN: Plan Abdominal pain/intractable nausea and vomiting -Etiology is unclear -MRCP with common bile duct dilation -Diet with clear liquid diets -D5 normal saline infusion at 125 cc/h -Antiemetics with Zofran and Compazine for breakthrough -As needed pain medication with morphine -Advance diet as able -GI consultation -Continue home medications as able for gastroparesis Common bile duct dilation -Anticipate this is likely related to her previous cholecystectomy however we will check an MRCP with her nausea vomiting and elevated alkaline phos/ALT Elevated serum creatinine -Baseline is unclear -Lately it appears that her serum creatinine has been fluctuant -We will high it and repeat in a.m. hopefully this will be able to establish a baseline Gastroparesis -Continue home medications Migraine headaches -Continue home medication -Continue home infusions after discharge -No current issue Anxiety/insomnia -Continue home medications -Would recommend tapering back on benzodiazepines and transition to a nonaddictive substance as I suspect this may be contributing to her abdominal pain nausea and vomiting DVT prophylaxis -Continue heparin 5000 units twice daily CODE STATUS Full code Charges/Coding Visit Charges Inpatient E&M: 72637 Init Hosp L2 12/18/222003 <Electronically signed by Silvia Coates DO> Cosigner Signature (if applicable): CC: Dr. Nikky Pillai MD; Dr. Silvia Coates DO~ Signed [facility] Work Phone: 1(360) 844-372903-01-[address] King [facility] December 18, 2022 5:23pm Note Date/Time December 18, 2022 11:1 8am [facility] Medical Records Department [address] [place] [address] Emergency Department Summary 12/18/22 MR#: [id number] Acct: [id number] Name: AKIL MICHELLE Rep #:[id number] : 1975 47 From: Carie Rodgers PCP: Dr. Nikky Pillai MD Status:REG ER Location: ED HPI HPI - GI History of Present Illness Chief Complaint: Abd Pain Informant: patient Narrative Narrative: Patient is a 47-year-old female with history of migraines and gastroparesis presenting for abdominal discomfort. Patient states that she has been more constipated and having abdominal discomfort for the past 2 weeks or so. She hasa diffuse diffuse abdominal discomfort. States she generally been able to eat or drink anything for the past 8 days but she can take small sips. She has tried her Phenergan but cannot keep it down and is also tried a scopolamine catch but had to stop that because she developed blurred vision. On Friday she was instructed to use an enema with some help with her symptoms. On Friday (2 days ago) she was instructed to take partial MiraLAX prep and usually have liquid stool from there. She followed up with GI again in the office today and they ordered a KUB and told her she can either go to the ER or go home and wait for Dr. Cuevas to review the x-ray. She said to come to the ER because she is concerned about dehydration. She has had a prior cholecystectomy as well as tubal ligation and removal of one of her ovaries. She had a CT of her abdomen and pelvis on 12/12/2022. She denies any fever or chills. Denies any urinary symptoms. No other complaints at this time. States she cannot take Reglan because it makes her crawl out of her skin. [facility] Medical History Alcohol use Anxiety Blackout Bradycardia Cardiology follow-up encounter Choledocholithiasis Cholelithiasis DUB (dysfunctional uterine bleeding) Easy bruising Hemiplegic migraine History of echocardiogram History of Holter monitoring History of kidney stones Insomnia Migraines Mycobacterial pneumonia Non-smoker [facility] cholecalciferol (vitamin D3) 25 mcg (1,000 unit) tablet 1,000 units PO DAILY supplement 12/25/18 [History Last Taken 02/20/22] folic acid 1 mg tablet 2 mg PO DAILY supplement 12/25/18 [History Last Taken 02/20/22] tizanidine 4 mg capsule 4 mg PO DAILY PRN PRN Migraine Symptoms 12/25/18 [History Last Taken 02/20/22] magnesium oxide 500 mg capsule 500 mg PO BID supplement 11/11/19 [History Last Taken 02/20/22] biotin 10,000 mcg capsule 10,000 mcg PO DAILY 09/15/20 [History Last Taken 02/20/22] aspirin 81 mg tablet,delayed release 81 mg PO DAILY 02/13/22 [History Last Taken 02/20/22] eptinezumab-jjmr 100 mg/mL intravenous solution (Vyepti) 100 mg .Route [id number] 02/13/22 [History Last Taken 02/20/22] levonorgestrel 21 mcg/24 hours (8 yrs) 52 mg intrauterine device (Mirena) 1 device intrauterine ONCE 02/13/22 [History Last Taken 02/20/22] mecobalamin (vitamin B12) 1,000 mcg disintegrating tablet,sublingual 1,000 mcg sublingual DAILY 02/13/22 [History Last Taken 02/20/22] oxycodone-acetaminophen 10 mg-325 mg tablet 1 tab PO BID PRN Pain 02/13/22 [History Last Taken 02/20/22] ubrogepant 100 mg tablet 100 mg PO PRN PRN Migraine Headache 02/13/22 [History Last Taken 02/20/22] omega-3 fatty acids-vitamin E 1,000 mg capsule 1,000 cap PO DAILY 02/18/22 [History Last Taken 02/20/22] promethazine 25 mg tablet 25 mg PO PRN PRN NAUSES 02/18/22 [History Last Taken 02/20/22] clonazepam 2 mg tablet 2 mg PO DAILY 02/20/22 [History Last Taken 02/20/22] topiramate 200 mg tablet 50 mg PO QHS migraine 05/29/22 [History Last Taken Unknown] trazodone 50 mg tablet 50 mg PO QHS 05/29/22 [History Last Taken Unknown] benzonatate 200 mg capsule 200 mg PO BID-TID PRN cough #30 caps 06/23/22 [Rx Last Taken Unknown] prednisone 10 mg tablet 10 mg PO DAILY #8 tabs 06/23/22 [Rx Last Taken Unknown] naproxen 500 mg tablet 500 mg PO BID PRN #20 tabs 08/18/22 [Rx Last Taken Unknown] clonazepam 1 mg tablet 1 mg PO QAM PRN hiccups #30 tabs 09/30/22 [Rx Last Taken Unknown] famotidine 20 mg tablet 20 mg PO QHS #30 tabs 09/30/22 [Rx Last Taken Unknown] linaclotide 72 mcg capsule (Linzess) 72 mcg PO DAILY #30 caps 09/30/22 [Rx Last Taken Unknown] pchnkb-exuigoms-aijxdjt 40,000-126,000-168,000 unit capsule, delay rel (Zenpep) 3 cap PO TID #320 caps 10/07/22 [Rx Last Taken Unknown] pantoprazole 40 mg tablet,delayed release (Protonix) 40 mg PO DAILY #30 tabs 11/15/22 [Rx Last Taken Unknown] promethazine 25 mg rectal suppository 25 mg VT Q6H PRN nausea and vomiting #12 ea 12/12/22 [Rx Last Taken Unknown] scopolamine base 1 mg over 3 days transdermal patch 1 patch transdermal Q3D PRN nausea and vomiting #10 ea 12/13/22 [Rx Last Taken Unknown] Allergy/AdvReac Type Severity Reaction Status Date / Time erythromycin base AdvReac Nausea Verified 12/12/22 16:19 [Erythromycin Base] hydrocodone bitartrate AdvReac Other Verified 12/12/22 16:19 [From Vicodin] Family History Father MVP (mitral valve prolapse) Surgical History H/O unilateral oophorectomy History of bilateral salpingectomy History of cholecystectomy History of lithotripsy Social History Smoking Status: Never smoker alcohol intake: never ROS ROS ED Constitutional Constitutional ED: Denies chills or fever(s) Cardiovascular Cardiovascular: Denies chest pain Respiratory/Chest Respiratory/Chest: Denies cough Gastrointestinal Gastrointestinal: Reports abdominal pain, diarrhea, nausea and vomiting; Denies constipation Genitourinary Genitourinary ED: Denies dysuria or hematuria Musculoskeletal Musculoskeletal: Denies arthralgias or myalgias Integumentary Denies rash Neurologic Neurologic: Denies weakness Psychiatric Psychiatric: Denies anxiety EXAM Physical Exam Const Vital Signs: 12/18/22 10:24 12/18/22 10:28 12/18/22 12:25 Temperature 98 F 97.7 F L 98.3 F Temperature Source Temporal Temporal Temporal Pulse Rate 89 79 64 Respiratory Rate 14 16 16 Blood Pressure 142/97 H 121/84 H 108/75 Blood Pressure Mean 112 96 86 Pulse Ox 100 99 100 Oxygen Delivery Method Room Air Room Air Room Air 12/18/22 12:27 12/18/22 13:39 12/18/22 15:07 Temperature 98 F 98 F Temperature Source Temporal Temporal Pulse Rate 64 66 66 Respiratory Rate 16 16 16 Blood Pressure 108/75 111/77 121/77 H Blood Pressure Mean 86 88 91 Pulse Ox 100 100 97 Oxygen Delivery Method Room Air Room Air Room Air 12/18/22 15:08 12/18/22 16:30 12/18/22 16:31 Temperature 98 F Temperature Source Temporal Pulse Rate 66 67 67 Respiratory Rate 16 16 16 Blood Pressure 121/77 H 94/62 94/62 Blood Pressure Mean 91 72 72 Pulse Ox 97 96 96 Oxygen Delivery Method Room Air Room Air Room Air Positive well nourished and well developed General Appearance ED: well developed and NAD; Negative for pallor HEENT Reports dry mucous membranes normocephalic and atraumatic Mouth ED: Yes dry mucous membranes Mouth: dry mucous membranes Eyes PERRL and EOMs intact bilaterally General Eye ED: Negative for scleral icterus Neck supple Resp normal respiratory effort and clear to auscultation bilaterally Cardio regular rate, regular rhythm and no murmurs GI non-distended Inspection: Negative for abdominal distention Auscultation: hypoactive bowel sounds Palpation: soft and tender epigastric Back/Spine no CVA tenderness Extremity full ROM Neuro moves all extremities Sensorium / Orientation: alert Motor Exam: Negative for general weakness Psych mental status grossly normal and thought process normal Skin no wounds General Skin Exam: Negative for jaundice or pallor MDM MDM MDM Narrative Medical decision making narrative: Patient is evaluated for decreased oral intake, nausea and epigastric abdominal pain in the setting of gastroparesis. She is had a prior cholecystectomy. She was seen in the ER 1 week ago and at that time was treated with fluids, Zofran and morphine. She states she felt better temporarily but then her pain came back and she is come back in. She is followed up with GI in the interim. I spoke with her GI doctor, Dr. Cuevas, states she has a very difficult gastroparesis that is hard to get under control with her symptoms. Patient doeshave an acute elevation of her ALT and alkaline phosphatase. Because of this right upper quadrant ultrasound was obtained to rule out choledocholithiasis. She does have a mildly dilated common bile duct however it does not appear grossly different than prior imaging on CTs. Discussed with Friday states patient might ultimately require an MRCP. Patient is given cocktail for cyclic vomiting syndrome and is able to keep down apple juice. Will obtain a blood glucose as she is mildly hyperglycemic with a glucose of 73 in the ER. She is resting on repeat evaluation. Patient expresses concern about possibly needing an NG tube at some point however right now she does not have any acute electrolyte abnormalities and still has a normal BMI. Patient states that when she went her cell this morning she was 114 pounds. After apple juice patient's glucose is 71. She does not feel any better after GI cocktail continues to have abdominal pain and nausea. I feel at this time patient likely will need admission for further symptom control, possible inpatient MRCP which was discussed with GI and further IV fluids with possible dextrose. Lab Data Labs: Laboratory Results - last 24 hr 12/18/22 12/18/22 12/18/22 11:31 11:31 16:56 WBC 4.9 RBC 4.85 Hgb 13.9 Hct 42.2 MCV 87.0 MCH 28.7 MCHC 32.9 RDW Std Deviation 38.8 RDW Coeff of Brian 12.1 Plt Count 175 MPV 9.7 Immature Gran % (Auto) 0.200 Neut % (Auto) 58.5 Lymph % (Auto) 31.9 Lynn % (Auto) 7.4 Eos % (Auto) 1.4 Baso % (Auto) 0.6 Absolute Neuts (auto) 2.9 Absolute Lymphs (auto) 1.56 Nucleated RBC % 0 Sodium 140 Potassium 3.8 Chloride 108 H Carbon Dioxide 23.0 Anion Gap 9 BUN 22 H Creatinine 1.44 H Estim Creat Clear Calc 38.20 Est GFR (MDRD) Af Amer 50 L Est GFR (MDRD) Non-Af 41 L BUN/Creatinine Ratio 15.3 Glucose 73 L Calcium 10.0 Total Bilirubin 0.50 AST 28 ALT 141 H Alkaline Phosphatase 145 H Total Protein 7.2 Albumin 4.2 Globulin 3.0 Albumin/Globulin Ratio 1.4 Lipase 372 POC Glucose 71 L Radiography Diagnostic Testing: Clinical Impression(s) from Imaging Studies Abdomen Ultrasound 12/18/22 12:46 IMPRESSION: Status post cholecystectomy. Mildly dilated common bile duct measuring 9 mm. Electronically Signed: Chirag Mock MD at 13:54 EST , Discharge Plan Triage Chief Complaint: Abd Pain ED Provider: Carie King Dx/Rx/DC Orders Clinical Impression: Hypoglycemia, Gastroparesis, Abdominal pain Prescriptions: No Action Mirena 20 mcg/24 hours (7 yrs) 52 mg intrauterine device 1 device intrauterine ONCE Rx Instructions: as a single dose Ubrelvy 100 mg tablet 100 mg PO PRN PRN (Reason: Migraine Headache) Label Comments: TAKE ONE TABLET BY MOUTH AT THE ONSET OF MIGRAINE, MAY REPEAT DOSE AFTER 2 HOURS IF MIGRAINE PERSISTS. MAX 2 TABLETS PER DAY oxycodone-acetaminophen 10-325 mg tablet 1 tab PO BID PRN (Reason: Pain) Label Comments: TAKE 1 TABLET BY MOUTH UP TO TWICE DAILY AT LEAST 4 HOURS APART NEEDED FORMIGRAINE aspirin 81 mg tablet,delayed release (DR/EC) 81 mg PO DAILY Vyepti 100 mg/mL solution 100 mg .Route [id number] Rx Instructions: every 3 monthsheadache 100 mg mecobalamin (vitamin B12) 1,000 mcg tablet,disintegrating 1,000 mcg sublingual DAILY Rx Instructions: place tablet under tongue and allow to dissolve for at least30 secs before swallowing clonazepam 2 mg tablet 2 mg PO DAILY topiramate 200 mg tablet 50 mg PO QHS trazodone 50 mg tablet 50 mg PO QHS benzonatate 200 mg capsule 200 mg PO BID-TID MDD 600 mg PRN (Reason: cough) Qty: 30 0RF prednisone 10 mg tablet 10 mg PO DAILY Qty: 8 0RF Rx Instructions: Take 1 tab PO QD X 5 days then 1/2 tab PO QD X 5 days then stop pantoprazole [Protonix] 40 mg tablet,delayed release (DR/EC) 40 mg PO DAILY Qty: 30 2RF folic acid 1 MG tablet 2 mg PO DAILY tizanidine 4 MG capsule 4 mg PO DAILY PRN PRN (Reason: Migraine Symptoms) cholecalciferol (vitamin D3) 1,000 UNIT tablet 1,000 units PO DAILY magnesium oxide 500 MG capsule 500 mg PO BID biotin 10,000 MCG capsule 10,000 mcg PO DAILY promethazine [Phenergan] 25 mg Tablet 25 mg PO PRN PRN (Reason: NAUSES) Fish Oil 1,000 mg Capsule 1,000 cap PO DAILY naproxen 500 mg tablet 500 mg PO BID PRN Qty: 20 0RF promethazine 25 mg suppository 25 mg VT Q6H PRN (Reason: nausea and vomiting) Qty: 12 0RF Linzess 72 mcg capsule 72 mcg PO DAILY Qty: 30 3RF famotidine 20 mg tablet 20 mg PO QHS Qty: 30 11RF clonazepam 1 mg tablet 1 mg PO QAM PRN (Reason: hiccups) Qty: 30 0RF Rx Instructions: Take one time a day as needed, do not take within 6 hours of another dose. Zenpep 40,000-126,000- 168,000 unit capsule,delayed release(DR/EC) 3 cap PO TID Qty: 320 11RF Rx Instructions: Take three with meals and 1-2 with snacks scopolamine base 1 mg over 3 days patch 3 day 1 patch transdermal Q3D PRN (Reason: nausea and vomiting) Qty: 10 0RF Primary Care Provider: Nikky Pillai Referrals: Nikky Pillai MD [Primary Care Provider] - Disposition Disposition: Acute Care Hospital [facility] What to do if you have Problems For any increased pain, shortness of breath, bleeding, nausea or vomiting, chestpain, or any unexpected problems, contact your Primary Care Provider. Call [facility] ([phone]) or report to the closest Emergency Room. Call 911 if necessary. 12/18/22 172 <Electronically signed by Carie King DO> Cosigner Signature (if applicable): CC: Dr. Nikky Pillai MD ~ Signed [facility] Work Phone: [phone] King [facility] December 18, 2022 5:23pm Note Date/Time December 18, 2022 11:1 8am [facility] Medical Records Department [address] [place] [address] Emergency Department Summary 12/18/22 MR#: [id number] Acct: [id number] Name: AKIL MICHELLE Rep #:[id number] 02 : 1975 47 From: Carie Rodgers PCP: Dr. Nikky Pillai MD Status:REG ER Location: ED HPI HPI - GI History of Present Illness Chief Complaint: Abd Pain Informant: patient Narrative Narrative: Patient is a 47-year-old female with history of migraines and gastroparesis presenting for abdominal discomfort. Patient states that she has been more constipated and having abdominal discomfort for the past 2 weeks or so. She hasa diffuse diffuse abdominal discomfort. States she generally been able to eat or drink anything for the past 8 days but she can take small sips. She has tried her Phenergan but cannot keep it down and is also tried a scopolamine catch but had to stop that because she developed blurred vision. On Friday she was instructed to use an enema with some help with her symptoms. On Friday (2 days ago) she was instructed to take partial MiraLAX prep and usually have liquid stool from there. She followed up with GI again in the office today and they ordered a KUB and told her she can either go to the ER or go home and wait for Dr. uCevas to review the x-ray. She said to come to the ER because she is concerned about dehydration. She has had a prior cholecystectomy as well as tubal ligation and removal of one of her ovaries. She had a CT of her abdomen and pelvis on 12/12/2022. She denies any fever or chills. Denies any urinary symptoms. No other complaints at this time. States she cannot take Reglan because it makes her crawl out of her skin. [facility] Medical History Alcohol use Anxiety Blackout Bradycardia Cardiology follow-up encounter Choledocholithiasis Cholelithiasis DUB (dysfunctional uterine bleeding) Easy bruising Hemiplegic migraine History of echocardiogram History of Holter monitoring History of kidney stones Insomnia Migraines Mycobacterial pneumonia Non-smoker [facility] cholecalciferol (vitamin D3) 25 mcg (1,000 unit) tablet 1,000 units PO DAILY supplement 12/25/18 [History Last Taken 02/20/22] folic acid 1 mg tablet 2 mg PO DAILY supplement 12/25/18 [History Last Taken 02/20/22] tizanidine 4 mg capsule 4 mg PO DAILY PRN PRN Migraine Symptoms 12/25/18 [History Last Taken 02/20/22] magnesium oxide 500 mg capsule 500 mg PO BID supplement 11/11/19 [History Last Taken 02/20/22] biotin 10,000 mcg capsule 10,000 mcg PO DAILY 09/15/20 [History Last Taken 02/20/22] aspirin 81 mg tablet,delayed release 81 mg PO DAILY 02/13/22 [History Last Taken 02/20/22] eptinezumab-jjmr 100 mg/mL intravenous solution (Vyepti) 100 mg .Route [id number] 02/13/22 [History Last Taken 02/20/22] levonorgestrel 21 mcg/24 hours (8 yrs) 52 mg intrauterine device (Mirena) 1 device intrauterine ONCE 02/13/22 [History Last Taken 02/20/22] mecobalamin (vitamin B12) 1,000 mcg disintegrating tablet,sublingual 1,000 mcg sublingual DAILY 02/13/22 [History Last Taken 02/20/22] oxycodone-acetaminophen 10 mg-325 mg tablet 1 tab PO BID PRN Pain 02/13/22 [History Last Taken 02/20/22] ubrogepant 100 mg tablet 100 mg PO PRN PRN Migraine Headache 02/13/22 [History Last Taken 02/20/22] omega-3 fatty acids-vitamin E 1,000 mg capsule 1,000 cap PO DAILY 02/18/22 [History Last Taken 02/20/22] promethazine 25 mg tablet 25 mg PO PRN PRN NAUSES 02/18/22 [History Last Taken 02/20/22] clonazepam 2 mg tablet 2 mg PO DAILY 02/20/22 [History Last Taken 02/20/22] topiramate 200 mg tablet 50 mg PO QHS migraine 05/29/22 [History Last Taken Unknown] trazodone 50 mg tablet 50 mg PO QHS 05/29/22 [History Last Taken Unknown] benzonatate 200 mg capsule 200 mg PO BID-TID PRN cough #30 caps 06/23/22 [Rx Last Taken Unknown] prednisone 10 mg tablet 10 mg PO DAILY #8 tabs 06/23/22 [Rx Last Taken Unknown] naproxen 500 mg tablet 500 mg PO BID PRN #20 tabs 08/18/22 [Rx Last Taken Unknown] clonazepam 1 mg tablet 1 mg PO QAM PRN hiccups #30 tabs 09/30/22 [Rx Last Taken Unknown] famotidine 20 mg tablet 20 mg PO QHS #30 tabs 09/30/22 [Rx Last Taken Unknown] linaclotide 72 mcg capsule (Linzess) 72 mcg PO DAILY #30 caps 09/30/22 [Rx Last Taken Unknown] zfqmna-xjfbjusb-lecppzb 40,000-126,000-168,000 unit capsule, delay rel (Zenpep) 3 cap PO TID #320 caps 10/07/22 [Rx Last Taken Unknown] pantoprazole 40 mg tablet,delayed release (Protonix) 40 mg PO DAILY #30 tabs 11/15/22 [Rx Last Taken Unknown] promethazine 25 mg rectal suppository 25 mg VT Q6H PRN nausea and vomiting #12 ea 12/12/22 [Rx Last Taken Unknown] scopolamine base 1 mg over 3 days transdermal patch 1 patch transdermal Q3D PRN nausea and vomiting #10 ea 12/13/22 [Rx Last Taken Unknown] Allergy/AdvReac Type Severity Reaction Status Date / Time erythromycin base AdvReac Nausea Verified 12/12/22 16:19 [Erythromycin Base] hydrocodone bitartrate AdvReac Other Verified 12/12/22 16:19 [From Vicodin] Family History Father MVP (mitral valve prolapse) Surgical History H/O unilateral oophorectomy History of bilateral salpingectomy History of cholecystectomy History of lithotripsy Social History Smoking Status: Never smoker alcohol intake: never ROS ROS ED Constitutional Constitutional ED: Denies chills or fever(s) Cardiovascular Cardiovascular: Denies chest pain Respiratory/Chest Respiratory/Chest: Denies cough Gastrointestinal Gastrointestinal: Reports abdominal pain, diarrhea, nausea and vomiting; Denies constipation Genitourinary Genitourinary ED: Denies dysuria or hematuria Musculoskeletal Musculoskeletal: Denies arthralgias or myalgias Integumentary Denies rash Neurologic Neurologic: Denies weakness Psychiatric Psychiatric: Denies anxiety EXAM Physical Exam Const Vital Signs: 12/18/22 10:24 12/18/22 10:28 12/18/22 12:25 Temperature 98 F 97.7 F L 98.3 F Temperature Source Temporal Temporal Temporal Pulse Rate 89 79 64 Respiratory Rate 14 16 16 Blood Pressure 142/97 H 121/84 H 108/75 Blood Pressure Mean 112 96 86 Pulse Ox 100 99 100 Oxygen Delivery Method Room Air Room Air Room Air 12/18/22 12:27 12/18/22 13:39 12/18/22 15:07 Temperature 98 F 98 F Temperature Source Temporal Temporal Pulse Rate 64 66 66 Respiratory Rate 16 16 16 Blood Pressure 108/75 111/77 121/77 H Blood Pressure Mean 86 88 91 Pulse Ox 100 100 97 Oxygen Delivery Method Room Air Room Air Room Air 12/18/22 15:08 12/18/22 16:30 12/18/22 16:31 Temperature 98 F Temperature Source Temporal Pulse Rate 66 67 67 Respiratory Rate 16 16 16 Blood Pressure 121/77 H 94/62 94/62 Blood Pressure Mean 91 72 72 Pulse Ox 97 96 96 Oxygen Delivery Method Room Air Room Air Room Air Positive well nourished and well developed General Appearance ED: well developed and NAD; Negative for pallor HEENT Reports dry mucous membranes normocephalic and atraumatic Mouth ED: Yes dry mucous membranes Mouth: dry mucous membranes Eyes PERRL and EOMs intact bilaterally General Eye ED: Negative for scleral icterus Neck supple Resp normal respiratory effort and clear to auscultation bilaterally Cardio regular rate, regular rhythm and no murmurs GI non-distended Inspection: Negative for abdominal distention Auscultation: hypoactive bowel sounds Palpation: soft and tender epigastric Back/Spine no CVA tenderness Extremity full ROM Neuro moves all extremities Sensorium / Orientation: alert Motor Exam: Negative for general weakness Psych mental status grossly normal and thought process normal Skin no wounds General Skin Exam: Negative for jaundice or pallor MDM MDM MDM Narrative Medical decision making narrative: Patient is evaluated for decreased oral intake, nausea and epigastric abdominal pain in the setting of gastroparesis. She is had a prior cholecystectomy. She was seen in the ER 1 week ago and at that time was treated with fluids, Zofran and morphine. She states she felt better temporarily but then her pain came back and she is come back in. She is followed up with GI in the interim. I spoke with her GI doctor, Dr. Cuevas, states she has a very difficult gastroparesis that is hard to get under control with her symptoms. Patient doeshave an acute elevation of her ALT and alkaline phosphatase. Because of this right upper quadrant ultrasound was obtained to rule out choledocholithiasis. She does have a mildly dilated common bile duct however it does not appear grossly different than prior imaging on CTs. Discussed with Friday states patient might ultimately require an MRCP. Patient is given cocktail for cyclic vomiting syndrome and is able to keep down apple juice. Will obtain a blood glucose as she is mildly hyperglycemic with a glucose of 73 in the ER. She is resting on repeat evaluation. Patient expresses concern about possibly needing an NG tube at some point however right now she does not have any acute electrolyte abnormalities and still has a normal BMI. Patient states that when she went her cell this morning she was 114 pounds. After apple juice patient's glucose is 71. She does not feel any better after GI cocktail continues to have abdominal pain and nausea. I feel at this time patient likely will need admission for further symptom control, possible inpatient MRCP which was discussed with GI and further IV fluids with possible dextrose. Lab Data Labs: Laboratory Results - last 24 hr 12/18/22 12/18/22 12/18/22 11:31 11:31 16:56 WBC 4.9 RBC 4.85 Hgb 13.9 Hct 42.2 MCV 87.0 MCH 28.7 MCHC 32.9 RDW Std Deviation 38.8 RDW Coeff of Brian 12.1 Plt Count 175 MPV 9.7 Immature Gran % (Auto) 0.200 Neut % (Auto) 58.5 Lymph % (Auto) 31.9 Lynn % (Auto) 7.4 Eos % (Auto) 1.4 Baso % (Auto) 0.6 Absolute Neuts (auto) 2.9 Absolute Lymphs (auto) 1.56 Nucleated RBC % 0 Sodium 140 Potassium 3.8 Chloride 108 H Carbon Dioxide 23.0 Anion Gap 9 BUN 22 H Creatinine 1.44 H Estim Creat Clear Calc 38.20 Est GFR (MDRD) Af Amer 50 L Est GFR (MDRD) Non-Af 41 L BUN/Creatinine Ratio 15.3 Glucose 73 L Calcium 10.0 Total Bilirubin 0.50 AST 28 ALT 141 H Alkaline Phosphatase 145 H Total Protein 7.2 Albumin 4.2 Globulin 3.0 Albumin/Globulin Ratio 1.4 Lipase 372 POC Glucose 71 L Radiography Diagnostic Testing: Clinical Impression(s) from Imaging Studies Abdomen Ultrasound 12/18/22 12:46 IMPRESSION: Status post cholecystectomy. Mildly dilated common bile duct measuring 9 mm. Electronically Signed: Chirag Mock MD at 13:54 EST , Discharge Plan Triage Chief Complaint: Abd Pain ED Provider: Carie King Dx/Rx/DC Orders Clinical Impression: Hypoglycemia, Gastroparesis, Abdominal pain Prescriptions: No Action Mirena 20 mcg/24 hours (7 yrs) 52 mg intrauterine device 1 device intrauterine ONCE Rx Instructions: as a single dose Ubrelvy 100 mg tablet 100 mg PO PRN PRN (Reason: Migraine Headache) Label Comments: TAKE ONE TABLET BY MOUTH AT THE ONSET OF MIGRAINE, MAY REPEAT DOSE AFTER 2 HOURS IF MIGRAINE PERSISTS. MAX 2 TABLETS PER DAY oxycodone-acetaminophen 10-325 mg tablet 1 tab PO BID PRN (Reason: Pain) Label Comments: TAKE 1 TABLET BY MOUTH UP TO TWICE DAILY AT LEAST 4 HOURS APART NEEDED FORMIGRAINE aspirin 81 mg tablet,delayed release (DR/EC) 81 mg PO DAILY Vyepti 100 mg/mL solution 100 mg .Route [id number] Rx Instructions: every 3 monthsheadache 100 mg mecobalamin (vitamin B12) 1,000 mcg tablet,disintegrating 1,000 mcg sublingual DAILY Rx Instructions: place tablet under tongue and allow to dissolve for at least30 secs before swallowing clonazepam 2 mg tablet 2 mg PO DAILY topiramate 200 mg tablet 50 mg PO QHS trazodone 50 mg tablet 50 mg PO QHS benzonatate 200 mg capsule 200 mg PO BID-TID MDD 600 mg PRN (Reason: cough) Qty: 30 0RF prednisone 10 mg tablet 10 mg PO DAILY Qty: 8 0RF Rx Instructions: Take 1 tab PO QD X 5 days then 1/2 tab PO QD X 5 days then stop pantoprazole [Protonix] 40 mg tablet,delayed release (DR/EC) 40 mg PO DAILY Qty: 30 2RF folic acid 1 MG tablet 2 mg PO DAILY tizanidine 4 MG capsule 4 mg PO DAILY PRN PRN (Reason: Migraine Symptoms) cholecalciferol (vitamin D3) 1,000 UNIT tablet 1,000 units PO DAILY magnesium oxide 500 MG capsule 500 mg PO BID biotin 10,000 MCG capsule 10,000 mcg PO DAILY promethazine [Phenergan] 25 mg Tablet 25 mg PO PRN PRN (Reason: NAUSES) Fish Oil 1,000 mg Capsule 1,000 cap PO DAILY naproxen 500 mg tablet 500 mg PO BID PRN Qty: 20 0RF promethazine 25 mg suppository 25 mg VT Q6H PRN (Reason: nausea and vomiting) Qty: 12 0RF Linzess 72 mcg capsule 72 mcg PO DAILY Qty: 30 3RF famotidine 20 mg tablet 20 mg PO QHS Qty: 30 11RF clonazepam 1 mg tablet 1 mg PO QAM PRN (Reason: hiccups) Qty: 30 0RF Rx Instructions: Take one time a day as needed, do not take within 6 hours of another dose. Zenpep 40,000-126,000- 168,000 unit capsule,delayed release(DR/EC) 3 cap PO TID Qty: 320 11RF Rx Instructions: Take three with meals and 1-2 with snacks scopolamine base 1 mg over 3 days patch 3 day 1 patch transdermal Q3D PRN (Reason: nausea and vomiting) Qty: 10 0RF Primary Care Provider: Nikky Pillai Referrals: Nikky Pillai MD [Primary Care Provider] - Disposition Disposition: Acute Care Hospital [facility] What to do if you have Problems For any increased pain, shortness of breath, bleeding, nausea or vomiting, chestpain, or any unexpected problems, contact your Primary Care Provider. Call [facility] ([phone]) or report to the closest Emergency Room. Call 911 if necessary. 12/18/221722 <Electronically signed by Carie King DO> Cosigner Signature (if applicable): CC: Dr. Nikky Pillai MD ~ Signed [facility] Work Phone: 1(317) 559-210402-21-2023 Telephone encounter Note* Telephone Encounter - Lorenzo Lr MD - 12/10/2022 1:29 PM EST I sent her a my chart message about this. [id number] Miscellaneous Notes* Telephone Encounter - Lorenzo Lr MD - 12/10/2022 1:29 PM EST I sent her a my chart message about this. * Telephone Encounter - Marissa Tuttle - 12/04/2022 4:12 PM EST Patient's further questions if applicable: Akil states she would like to inform Dr. Lr she sent a [employer] message after discussing her lab results with the office. Akil states she is currently prescribed two medications that can result in a false positive result for amphetamines, Rxs: traZODone (Desyrel) 50 MG tablet (taken every night) and promethazine (Phenergan) 25 MG tablet (taken asneeded for nausea). Akil states a message was already sent to her PCP regarding this information. Akil states her biggest concern regarding this entire situation, is she does not want to be labeled a drug user/abuser/seeker when that is not the case. Akil states she was able to Google the medications she is currently prescribed, and immediately discovered the Rxs that result in false positives. Akil states both medications are on the list provided to Dr. Lr. Akil states if shecan no longer get her medications from Dr. Lr or her PCP, she will most likely end up in the hosp ital again, and she does not think it is fair for her to be labeled a drug abuser for medications that cause false positives. Please contact Akil and advise. * Telephone Encounter - Manisha Chance - 12/04/2022 11:24 AM EST Pt states she does not know how she tested positive for amphetamines unless its a medication on hermed list. Pt wants to know if she will be getting the infusions. Please advise. * Telephone Encounter - Manisha Chance - 12/04/2022 10:31 AM EST Left a message for pt to call the office. Rx has been canceled at [facility] pharmacy. * Telephone Encounter - Lorenzo Lr MD - 12/04/2022 7:12 AM EST Please call the pharmacy where I sent the oxycodone prescription. Tell them that it looks like she has not filled that yet and I need it canceled before she does. Let the patient know the following: We are trying to work out getting her port flushed. She tested positive for amphetamines so I will not be providing her prescriptions for oxycodone or similar pain meds from now on. I will still work with her on insomnia and headaches just no more potentially addicting pain meds. documented in this [facility]02-15-2023 Telephone encounter Note* Telephone Encounter - Marissa Tuttle - 12/04/2022 4:12 PM EST Patient's further questions if applicable: Akil states she would like to inform Dr. Lr she sent a [employer] message after discussing her lab results with the office. Akil states she is currently prescribed two medications that can result in a false positive result for amphetamines, Rxs: traZODone (Desyrel) 50 MG tablet (taken every night) and promethazine (Phenergan) 25 MG tablet (taken asneeded for nausea). Akil states a message was already sent to her PCP regarding this information. Akil states her biggest concern regarding this entire situation, is she does not want to be labeled a drug user/abuser/seeker when that is not the case. Akil states she was able to Google the medications she is currently prescribed, and immediately discovered the Rxs that result in false positives. Akil states both medications are on the list provided to Dr. Lr. Akil states if shecan no longer get her medications from Dr. Lr or her PCP, she will most likely end up in the hosp ital again, and she does not think it is fair for her to be labeled a drug abuser for medications that cause false positives. Please contact Akil and advise. [id number] Miscellaneous Notes* Telephone Encounter - Marissa Tuttle - 12/04/2022 4:12 PM EST Patient's further questions if applicable: Akil states she would like to inform Dr. Lr she sent a [employer] message after discussing her lab results with the office. Akil states she is currently prescribed two medications that can result in a false positive result for amphetamines, Rxs: traZODone (Desyrel) 50 MG tablet (taken every night) and promethazine (Phenergan) 25 MG tablet (taken asneeded for nausea). Akil states a message was already sent to her PCP regarding this information. Akil states her biggest concern regarding this entire situation, is she does not want to be labeled a drug user/abuser/seeker when that is not the case. Akil states she was able to Google the medications she is currently prescribed, and immediately discovered the Rxs that result in false positives. Akil states both medications are on the list provided to Dr. Lr. Akil states if shecan no longer get her medications from Dr. Lr or her PCP, she will most likely end up in the hosp ital again, and she does not think it is fair for her to be labeled a drug abuser for medications that cause false positives. Please contact Akil and advise. * Telephone Encounter - Manisha Chance - 12/04/2022 11:24 AM EST Pt states she does not know how she tested positive for amphetamines unless its a medication on hermed list. Pt wants to know if she will be getting the infusions. Please advise. * Telephone Encounter - Manisha Chance - 12/04/2022 10:31 AM EST Left a message for pt to call the office. Rx has been canceled at [facility] pharmacy. * Telephone Encounter - Lorenzo Lr MD - 12/04/2022 7:12 AM EST Please call the pharmacy where I sent the oxycodone prescription. Tell them that it looks like she has not filled that yet and I need it canceled before she does. Let the patient know the following: We are trying to work out getting her port flushed. She tested positive for amphetamines so I will not be providing her prescriptions for oxycodone or similar pain meds from now on. I will still work with her on insomnia and headaches just no more potentially addicting pain meds. documented in this [facility]02-15-2023 Telephone encounter Note* Telephone Encounter - Manisha Chance - 12/04/2022 11:24 AM EST Pt states she does not know how she tested positive for amphetamines unless its a medication on hermed list. Pt wants to know if she will be getting the infusions. Please advise. [id number] Telephone encounter Note* Telephone Encounter - Manisha Chance - 12/04/2022 10:31 AM EST Left a message for pt to call the office. Rx has been canceled at [facility] pharmacy. [facility] [id number] Telephone encounter Note* Telephone Encounter - Lorenzo Lr MD - 12/04/2022 7:12 AM EST Please call the pharmacy where I sent the oxycodone prescription. Tell them that it looks like she has not filled that yet and I need it canceled before she does. Let the patient know the following: We are trying to work out getting her port flushed. She tested positive for amphetamines so I will not be providing her prescriptions for oxycodone or similar pain meds from now on. I will still work with her on insomnia and headaches just no more potentially addicting pain meds. [facility] [id number] History of Present illness Narrative* Lorenzo Lr MD - 12/02/2022 1:30 PM EST Images from the original note were not included. [facility] [address] [facility] [id number] Dept: [phone] Dept Loc: [phone] Lorenzo Lr MD Thank you for your kind request for a neurological consultation on this patient. CHIEF COMPLAINT: Chief Complaint Patient presents with New Patient Migraine HISTORY OF PRESENT ILLNESS: The patient is a 47 y.o. person who presents with headaches, migraines and hemiplegic migraines. She reports that she has headaches every day, migraines 8- 12 days per month. She reports that she is on Vyepti, IV PETER infusion (DHE), topiramate 100 mg nightly, and 1 time of Botox for PETER has made her migraines less severe. She saw me in the past at another practice but I do not have the records from that. She has daily headache in the right frontal region. The daily headaches are a dull ache. The daily headaches do not have light sensitivity. No vision changes with the daily headaches.With regar do her migraines: Right frontal, throbbing, tunnel vision, dizziness. Is the PETER longer than four hours? Yes (Migraine) Photophobia? Yes (Migraine) Phonophobia? Yes (Migraine) Nausea/Vomiting? 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 (1) conjunctival injection? No (2) lacrimation? No (3) nasal congestion? No (4) rhinorrhea? No (5) ptosis? No (6) eyelid edema? No (New Daily Persistent PETER) Clear Onset of PETER Syndrome? No Persistent for >3 months? No Distinct starting point? No No prior PETER history? Yes (Tension-Type PETER) Mild-Moderate, Featureless? No >10 attacks per month? 30 min-7days? Bilateral? Pressing/tightening? Is the PETER less than four hours? No Autonomic Features? No Cluster Headache (1 or more)? No 15 min to 180 min? No Ipsilateral conjunctival injection? No Ipsilateral Lacrimation? No Ipsilateral nasal congestion? No Ipsilateral Rhinorrhea? No Ipsilateral forehead and facial sweating? No Ipsilateral Miosis? No Ipsilateral Ptosis? No eyelid edema? No Paroxysmal Hemicrania (1 or more ipsilateral)? No (1) 2 min-30 min? No (2) conjunctival injection? No (3) lacrimation? No (4) nasal congestion? No (5) rhinorrhea? No (6) eyelid edema? No Short-lasting Unilateral Neuralgiform PETER with Conjunctival Injection and Tearing? (1) 1 sec-600 s? No (2) conjunctival injection? No (3) lacrimation? No (4) nasal congestion? No (5) rhinorrhea? No (6) eyelid edema? No Hypnic PETER? Only during sleep and causing awakening? No > 10 days per month? No > 3 months? No Age over 50? No Primary Cough PETER? > 2 attacks? No Precipitated by coughing or other Valsalva maneuver? No 1 sec-2 hours? No Secondary cause ruled out? No Primary Exercise PETER? > 2 attacks? No Precipitated by strenuous exercise? No Secondary cause ruled out? No Secondary causes of PETER? Systemic Symptoms (mets, GCA, infection)? Fever? Sweats/Chills? Weight Loss? Secondary Diseases? HIV? Cancer? Chronic Infection? Chronic Immunosuppression? Neurological Symtoms and Signs (mass/structural lesion, stroke, hydrocephalus) Confusion? Focal neurological signs/symptoms? Diplopia? Transient visual obscurations? Pulsatile tinnitus? Onset: (RCVS, stroke, SAH, CVST, dissection, pituitary apoplexy, intracranial hypertension) Thunderclap? Older Age (mass, GCA) New onset after age 50? Progressive after age 50? Positional (CSF leak, mass, CVST, Sinusitis) Orthostatic? Recumbent? Worsens with change in position? Prior history (mass, infection)? / (CVST, eclampsia, RCVS, pituitary lesion, stroke)? Precipitated by valsalva (mass, Chiari)?No Cough? Sneeze? Bending? Straining? She has tried and failed amitriptyline, topiramate, doxepin, Aimovig, Ajovy, Emgality, Nurtec (every other day), and others and they all failed. She has tried sumatriptan (pills, NS, and injections),naratriptan, rizatriptan and Nurtec as needed without success. She has some limited success with Ubrelvy but wonders if her gastroparesis limits its effect but slowing it's absorption. She reports that she has had syncopal spells and memory loss episodes since she was last seen. She reports that she had an EEG that was normal. She says she wore an EEG for 3 days and did not hear that there was an abnormality despite having periods of loss of memory while wearing it. She reports tht she had a cognitive evaluation by Dr. Rosenberg, PHD in [place] that showed a little bit of memory decline. Dr. Basurto at [facility] saw her after that and felt that it was due to her high dose of Topiramate. She is still having the issues of memory loss despite lowering her topiramate. She denies heart palpitations. 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 Sometimes there is no warning. She will collapse to the floor if she is not able to get seated. She reports that she is out for 10-15 minutes. No tongue biting. Once she lost control of her bladder. She cannot recall when she last had imaging of her brain. She thinks the EEG's were two years ago. She reports that she has chronic insomnia. The patient goes to bed around 10PM . It takes more than30 min to fall asleep. The patient gets up for the day at 7- 730AM. She has TV on in the room. The patient does not feel refreshed upon awakening. The patient estimations 5-6 arousals per sleep period. The patient denies jerking of the limbs during sleep. The patient denies sleeptalking or sleepwalking.. The patient denies snoring. She has tried amitriptyline, Ambien, gabapentin (ankle edema, doxepin, and others for insomnia but they all failed. She is currently on clonazepam at 830 PM nightly and it is not helping. She reports that she has been taking oxycodone about 12 times per month. Past Medical History: has a past medical history of Jerome esophagus, Gastroparesis, and Migraine. Past Surgical History: has a past surgical history that includes Tubal ligation; Oophorectomy (Left); Portacath placement;Cholecystectomy; removal of kidney stone (historical); and endoscopy visit outpatient (historical). Medications: Current Outpatient Medications: aspirin 81 MG oral suspension, , Disp: , Rfl: biotin 5000 MCG capsule, , Disp: , Rfl: cetirizine (ZyrTEC) 10 MG tablet, daily., Disp: , Rfl: Cholecalciferol (Vitamin D) 125 MCG (5000 UT) capsule, , Disp: , Rfl: clonazePAM (KlonoPIN) 2 MG tablet, clonazepam 2 mg tablet, Disp: , Rfl: dihydroergotamine (D.H.E. 45) 1 MG/ML injection, Infuse 1 mg into a venous catheter Once., Disp: , Rfl: eptinezumab (Vyepti) 100 MG/ML injection, Eptinezumab-Jjmr (Vyepti) 100 mg/mL solution Active 100 MG .Route every 3 months February 12, 2022 11:00pm every 3 monthsheadache 100 mg, Disp: , Rfl: famotidine (Pepcid) 20 MG tablet, famotidine 20 mg tablet, Disp: , Rfl: folic acid (Folvite) 1 MG tablet, folic acid 1 mg tablet, Disp: , Rfl: levonorgestrel (Mirena, 52 MG,) 20 MCG/DAY IUD, 1 each by IntraUTERine route., Disp: , Rfl: linaCLOtide (Linzess) 72 MCG capsule, Linzess 72 mcg capsule, Disp: , Rfl: Magnesium 500 MG capsule, , Disp: , Rfl: Methylcobalamin 1000 MCG sublingual tablet, Mecobalamin (Vitamin B12) Active 1000 MCG SL DAILY February 12, 2022 11:[address]pm place tablet under tongue and allow to dissolve for at least30 secs before swallowing, Disp: , Rfl: omega-3 (fish oil) 1000 MG capsule, , Disp: , Rfl: onabotulinumtoxinA (Botox) 100 units injection, Botox 100 unit injection, Disp: , Rfl: oxyCODONE-acetaminophen (Percocet) 10-325 MG tablet, oxycodone-acetaminophen 10 mg-325 mg tablet take 1 tablet up to twice daily at least 4 hours apart as needed for migraine, Disp: , Rfl: pancrelipase, Pmg-Bdmq-Zgif, (Zenpep) 72314-93576 units capsule delayed-release particles capsule, , Disp: , Rfl: pantoprazole (ProtoNix) 40 MG EC tablet, pantoprazole 40 mg tablet,delayed release, Disp: , Rfl: promethazine (Phenergan) 25 MG tablet, promethazine 25 mg tablet, Disp: , Rfl: tiZANidine (Zanaflex) 4 MG capsule, , Disp: , Rfl: topiramate (Topamax) 100 MG tablet, topiramate 100 mg tablet, Disp: , Rfl: traZODone (Desyrel) 50 MG tablet, trazodone 50 mg tablet, Disp: , Rfl: Ubrogepant (Ubrelvy) 100 MG tablet, Ubrelvy 100 mg tablet, Disp: , Rfl: Atogepant (Qulipta) 60 MG tablet, Take 1 tablet by mouth daily., Disp: 30 tablet, Rfl: 3 [START ON 12/28/2022] clonazePAM (KlonoPIN) 0.5 MG tablet, Take 1 tablet (0.5 mg) by mouth 2 times daily. Do not start before December 28, 2022., Disp: 60 tablet, Rfl: 2 [START ON 12/13/2022] clonazePAM (KlonoPIN) 1 MG tablet, Take 1 tablet (1 mg) by mouth 2 times dailyfor 14 days. Do not start before December 13, 2022., Disp: 60 tablet, Rfl: 0 [START ON 12/16/2022] eptinezumab (Vyepti) IVPB, Infuse 100 mg into a venous catheter Once for 1 dose. Do not start before December 16, 2022., Disp: 1 each, Rfl: 0 L-Methylfolate 15 MG tablet, Take 1 tablet by mouth daily (with breakfast)., Disp: 30 tablet, Rfl: 11 [START ON 12/11/2022] oxyCODONE-acetaminophen (Percocet) 10-325 MG tablet, Take 1 tablet by mouth every 12 hours as needed for severe pain (7-10) for up to 5 days. Do not start before December 11, 2022., Disp: 15 tablet, Rfl: 0 suvorexant (Belsomra) 15 MG tablet, Take 1 tablet (15 mg) by mouth Nightly. With clonazepam 1 mg, Disp: 30 tablet, Rfl: 0 [START ON 01/02/2023] suvorexant (Belsomra) 20 MG tablet, Take 1 tablet (20 mg) by mouth Nightly. Donot start before January 02, 2023., Disp: 30 tablet, Rfl: 2 Filled Written ID Drug QTY Days Prescriber RX # Dispenser Refill Daily Dose* Pymt Type CLIENT REPRESENTATIVE 11/13/2022 08/27/2022 1 Clonazepam 2 Mg Tablet 30.00 30 Da Ear [id number] Mar ([id number]) 2 4.00 LME Comm Ins [place] 10/24/2022 08/27/2022 1 Oxycodone-Acetaminophen 10-325 15.00 30 Da Ear [id number] Mar ([id number]) 0 7.50 [place] 10/12/2022 08/27/2022 1 Clonazepam 2 Mg Tablet 30.00 30 Da Ear [id number] Mar ([id number]) 1 4.00 [place] 10/01/2022 09/30/2022 1 Clonazepam 1 Mg Tablet 30.00 30 Ra Fri [id number] Mar ([id number]) 0 2.00 [place] 09/25/2022 08/27/2022 1 Oxycodone-Acetaminophen 10-325 15.00 30 Da Ear [id number] Mar ([id number]) 0 7.50 [place] 09/18/2022 08/27/2022 1 Clonazepam 2 Mg Tablet 30.00 30 Da Ear [id number] Mar ([id number]) 0 4.00 LME [place] Allergies: Amitriptyline, Azithromycin, Erythromycin base, Gabapentin, Hydrocodone, and Metoclopramide Social History: Social History Socioeconomic History Marital status: Spouse name: Not on file Number of children: Not on file Years of education: Not on file Highest education level: Not on file Occupational History Not on file Tobacco Use Smoking status: Never Smokeless tobacco: Never Substance and Sexual Activity Alcohol use: Not on file Drug use: Not on file Sexual activity: Not on file Other Topics Concern Not on file Social History Narrative Not on file Social Determinants of Health Financial Resource Strain: Not on file Food Insecurity: Not on file Transportation Needs: Not on file Physical Activity: Not on file Stress: Not on file Social Connections: Not on file Intimate Partner Violence: Not on file Housing Stability: Not on file Family History: No family history on file. REVIEW OF SYSTEMS: Review of Systems Constitutional: Positive for fatigue. Negative for appetite change, chills, diaphoresis, fever and unexpected weight change. HENT: Negative for dental problem and mouth sores. Eyes: Negative for discharge and itching. Respiratory: Negative for chest tightness and shortness of breath. Cardiovascular: Negative for chest pain, palpitations and leg swelling. Gastrointestinal: Positive for abdominal pain, nausea and vomiting. Negative for rectal pain. Endocrine: Negative for polydipsia, polyphagia and polyuria. Genitourinary: Negative for decreased urine volume, flank pain and genital sores. Musculoskeletal: Negative for arthralgias, back pain and neck pain. Skin: Negative for color change. Allergic/Immunologic: Negative for food allergies and immunocompromised state. Neurological: Positive for dizziness, syncope, light-headedness and headaches. Negative for weakness. Hematological: Negative for adenopathy. Does not bruise/bleed easily. Psychiatric/Behavioral: Positive for confusion and sleep disturbance. Negative for agitation, behavioral problems, decreased concentration and suicidal ideas. Answers submitted by the patient for this visit: Neurological Problem Questionnaire (Submitted on 12/01/2022) Chief Complaint: Neurologic complaint altered mental status: Yes clumsiness: No focal sensory loss: No focal weakness: No loss of balance: Yes memory loss: Yes near-syncope: Yes slurred speech: No visual change: No Chronicity: chronic Onset: more than 1 year ago Onset quality: insidiously Progression since onset: waxing and waning Focality: no focality noted auditory change: No aura: Yes bladder incontinence: No bowel incontinence: Yes vertigo: Yes Treatments tried: acetaminophen, aspirin, bed rest, drinking, eating, medication, neck support, position change, sleep, walking Improvement on treatment: mild PHYSICAL EXAM: Vitals: BP 123/82 Pulse 82 Ht 5' 2 (1.575 m) Wt 125 lb (56.7 kg) BMI 22.86 kg/m General Appearance: Patient is in no apparent distress. Head is normocephalic, atraumatic Cardiovascular: Regular rate and rhythm. No heart murmurs. No carotid bruit Neurologic: Mentation: Alert and oriented x [address], [address] and time. Speech and Language: Speech and language normal Concentration and Attention: Concentration normal Memory: Memory normal Fund of Knowledge: Fund of knowledge normal Cranial Nerves: II, III, IV, V, , VII, VIII, IX, X, XI, XII tested and were intact including fundoscopic exam (optic discs) and visual field to confrontation. Motor: Strength:Strength 5 out of 5 with normal tone Alternating Movements: Normal Cogwheel Rigidity: None Tone: Tone is normal Tremor / Involuntary Movements: None Deep Tendon Reflexes: 1 out of 4 symmetrical in all four limbs. Sensory: Normal sensation upper and lower extremities Coordination: Normal coordination upper and lower extremities Gait and Station: Station is normal. Gait is normal DATA CBC: No results found for: WBC, RBC, HGB, HCT, MCV, MCH, MCHC, RDW, PLT, MPV CMP: No results found for: NA, K, CL, CO2, BUN, CREATININE, AGRATIO, LABGLOM, GLUCOSE, GLU, PROT, CALCIUM, BILITOT, ALKPHOS, AST, ALT BMP: No results found for: NA, K, CL, CO2, BUN, CREATININE, CALCIUM, LABGLOM, GLUCOSE, GLU PT/INR: No results found for: PROTIME, INR PTT: No results found for: APTT, PTT[APTT} FLP: No results found for: CHLPL, TRIG, HDL, LDLCALC, LDLDIRECT TSH: No results found for: TSH VITAMIN B12: No results found for: [id number] FERRITIN: No results found for: FERRITIN ---- No results found for: PHENYTOIN, PHENOBARB, VALPROATE, CBMZ No components found for: TOPIRANo results found for: OXCARBAZE, OXCARB @LASTAPPOINTMENTTHISPROV@ No image results found. @RESULTINGLABINFO@ No results found for: LEVETIRACETA, FERRITIN, CRP, ARNEL, ANCA No results found for: ROB, IMMUNOGLOBUL, OLIGOBANDS No results found for: VGQ24CH, HEPCAB No results found for: CRP, ANATITER, ANCA, ANCA ASSESSMENT AND PLAN: Diagnosis Plan 1. Syncope and collapse External referral to Cardiology [facility] Neurology Drug Monitor Panel 5 Screen, Urine ([facility]) 2. Autonomic dysfunction External referral to Cardiology [facility] Neurology 3. 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 Primary insomnia suvorexant (Belsomra) 15 MG tablet clonazePAM (KlonoPIN) 1 MG tablet suvorexant (Belsomra) 20 MG tablet clonazePAM (KlonoPIN) 0.5 MG tablet It is medically necessary for her to see a drop forge hand who is expert in syncope due to vagus nervedysfunction given normal EEG's and known gastroparesis. Referral to Dr. Kam ordered. She is also to see Dr. Mccall or Merritt in the epilepsy center to see if there are still epileptics activities caussing the syncope and the memory loss episodes. See #1 Continue the Vyept, topiramate, and other regimens. She is on folate for MTHFR, but she is to buy OTC l-methylfolate to prevent the hemiplegic migraines. Today I did refill her narcotics and she is my only patient from this office that will get this only because I know that I had to start them years ago to prevent ER visits. See above all the meds that she has tried. It is medically necessary for her to take Qulitpa daily to reduce her hemiplegic migraines. Ubrelvy PRN. She has tried and failed all the non-addicting meds for insomnia and now clonazepam. It is medically necessary for her to try suvorexant and to transition off of clonazepam. I spent 60 minutes caring for this patient today, reviewing labs and records, seeing the patient, documenting in the record and arranging for studies. documented in this [facility]02-13-2023 History of Present illness Narrative* Lorenzo Lr MD - 12/02/2022 1:30 PM EST Images from the original note were not included. [facility] [address] [facility] [address] Dept: [phone] Dept Loc: [phone] Lorenzo Lr MD Thank you for your kind request for a neurological consultation on this patient. CHIEF COMPLAINT: Chief Complaint Patient presents with New Patient Migraine HISTORY OF PRESENT ILLNESS: The patient is a 47 y.o. person who presents with headaches, migraines and hemiplegic migraines. She reports that she has headaches every day, migraines 8- 12 days per month. She reports that she is on Vyepti, IV PETER infusion (DHE), topiramate 100 mg nightly, and 1 time of Botox for PETER has made her migraines less severe. She saw me in the past at another practice but I do not have the records from that. She has daily headache in the right frontal region. The daily headaches are a dull ache. The daily headaches do not have light sensitivity. No vision changes with the daily headaches.With regar do her migraines: Right frontal, throbbing, tunnel vision, dizziness. Is the PETER longer than four hours? Yes (Migraine) Photophobia? Yes (Migraine) Phonophobia? Yes (Migraine) Nausea/Vomiting? 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 (1) conjunctival injection? No (2) lacrimation? No (3) nasal congestion? No (4) rhinorrhea? No (5) ptosis? No (6) eyelid edema? No (New Daily Persistent PETER) Clear Onset of PETER Syndrome? No Persistent for >3 months? No Distinct starting point? No No prior PETER history? Yes (Tension-Type PETER) Mild-Moderate, Featureless? No >10 attacks per month? 30 min-7days? Bilateral? Pressing/tightening? Is the PETER less than four hours? No Autonomic Features? No Cluster Headache (1 or more)? No 15 min to 180 min? No Ipsilateral conjunctival injection? No Ipsilateral Lacrimation? No Ipsilateral nasal congestion? No Ipsilateral Rhinorrhea? No Ipsilateral forehead and facial sweating? No Ipsilateral Miosis? No Ipsilateral Ptosis? No eyelid edema? No Paroxysmal Hemicrania (1 or more ipsilateral)? No (1) 2 min-30 min? No (2) conjunctival injection? No (3) lacrimation? No (4) nasal congestion? No (5) rhinorrhea? No (6) eyelid edema? No Short-lasting Unilateral Neuralgiform PETER with Conjunctival Injection and Tearing? (1) 1 sec-600 s? No (2) conjunctival injection? No (3) lacrimation? No (4) nasal congestion? No (5) rhinorrhea? No (6) eyelid edema? No Hypnic PETER? Only during sleep and causing awakening? No > 10 days per month? No > 3 months? No Age over 50? No Primary Cough PETER? > 2 attacks? No Precipitated by coughing or other Valsalva maneuver? No 1 sec-2 hours? No Secondary cause ruled out? No Primary Exercise PETER? > 2 attacks? No Precipitated by strenuous exercise? No Secondary cause ruled out? No Secondary causes of PETER? Systemic Symptoms (mets, GCA, infection)? Fever? Sweats/Chills? Weight Loss? Secondary Diseases? HIV? Cancer? Chronic Infection? Chronic Immunosuppression? Neurological Symtoms and Signs (mass/structural lesion, stroke, hydrocephalus) Confusion? Focal neurological signs/symptoms? Diplopia? Transient visual obscurations? Pulsatile tinnitus? Onset: (RCVS, stroke, SAH, CVST, dissection, pituitary apoplexy, intracranial hypertension) Thunderclap? Older Age (mass, GCA) New onset after age 50? Progressive after age 50? Positional (CSF leak, mass, CVST, Sinusitis) Orthostatic? Recumbent? Worsens with change in position? Prior history (mass, infection)? / (CVST, eclampsia, RCVS, pituitary lesion, stroke)? Precipitated by valsalva (mass, Chiari)?No Cough? Sneeze? Bending? Straining? She has tried and failed amitriptyline, topiramate, doxepin, Aimovig, Ajovy, Emgality, Nurtec (every other day), and others and they all failed. She has tried sumatriptan (pills, NS, and injections),naratriptan, rizatriptan and Nurtec as needed without success. She has some limited success with Ubrelvy but wonders if her gastroparesis limits its effect but slowing it's absorption. She reports that she has had syncopal spells and memory loss episodes since she was last seen. She reports that she had an EEG that was normal. She says she wore an EEG for 3 days and did not hear that there was an abnormality despite having periods of loss of memory while wearing it. She reports tht she had a cognitive evaluation by Dr. Rosenberg, PHD in [place] that showed a little bit of memory decline. Dr. Basurto at [facility] saw her after that and felt that it was due to her high dose of Topiramate. She is still having the issues of memory loss despite lowering her topiramate. She denies heart palpitations. 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 Sometimes there is no warning. She will collapse to the floor if she is not able to get seated. She reports that she is out for 10-15 minutes. No tongue biting. Once she lost control of her bladder. She cannot recall when she last had imaging of her brain. She thinks the EEG's were two years ago. She reports that she has chronic insomnia. The patient goes to bed around 10PM . It takes more than30 min to fall asleep. The patient gets up for the day at 7- 730AM. She has TV on in the room. The patient does not feel refreshed upon awakening. The patient estimations 5-6 arousals per sleep period. The patient denies jerking of the limbs during sleep. The patient denies sleeptalking or sleepwalking.. The patient denies snoring. She has tried amitriptyline, Ambien, gabapentin (ankle edema, doxepin, and others for insomnia but they all failed. She is currently on clonazepam at 830 PM nightly and it is not helping. She reports that she has been taking oxycodone about 12 times per month. Past Medical History: has a past medical history of Jerome esophagus, Gastroparesis, and Migraine. Past Surgical History: has a past surgical history that includes Tubal ligation; Oophorectomy (Left); Portacath placement;Cholecystectomy; removal of kidney stone (historical); and endoscopy visit outpatient (historical). Medications: Current Outpatient Medications: aspirin 81 MG oral suspension, , Disp: , Rfl: biotin 5000 MCG capsule, , Disp: , Rfl: cetirizine (ZyrTEC) 10 MG tablet, daily., Disp: , Rfl: Cholecalciferol (Vitamin D) 125 MCG (5000 UT) capsule, , Disp: , Rfl: clonazePAM (KlonoPIN) 2 MG tablet, clonazepam 2 mg tablet, Disp: , Rfl: dihydroergotamine (D.H.E. 45) 1 MG/ML injection, Infuse 1 mg into a venous catheter Once., Disp: , Rfl: eptinezumab (Vyepti) 100 MG/ML injection, Eptinezumab-Jjmr (Vyepti) 100 mg/mL solution Active 100 MG .Route every 3 months February 12, 2022 11:00pm every 3 monthsheadache 100 mg, Disp: , Rfl: famotidine (Pepcid) 20 MG tablet, famotidine 20 mg tablet, Disp: , Rfl: folic acid (Folvite) 1 MG tablet, folic acid 1 mg tablet, Disp: , Rfl: levonorgestrel (Mirena, 52 MG,) 20 MCG/DAY IUD, 1 each by IntraUTERine route., Disp: , Rfl: linaCLOtide (Linzess) 72 MCG capsule, Linzess 72 mcg capsule, Disp: , Rfl: Magnesium 500 MG capsule, , Disp: , Rfl: Methylcobalamin 1000 MCG sublingual tablet, Mecobalamin (Vitamin B12) Active 1000 MCG SL DAILY February 12, 2022 11:[address]pm place tablet under tongue and allow to dissolve for at least30 secs before swallowing, Disp: , Rfl: omega-3 (fish oil) 1000 MG capsule, , Disp: , Rfl: onabotulinumtoxinA (Botox) 100 units injection, Botox 100 unit injection, Disp: , Rfl: oxyCODONE-acetaminophen (Percocet) 10-325 MG tablet, oxycodone-acetaminophen 10 mg-325 mg tablet take 1 tablet up to twice daily at least 4 hours apart as needed for migraine, Disp: , Rfl: pancrelipase, Ooz-Acqu-Ecwa, (Zenpep) 35188-24213 units capsule delayed-release particles capsule, , Disp: , Rfl: pantoprazole (ProtoNix) 40 MG EC tablet, pantoprazole 40 mg tablet,delayed release, Disp: , Rfl: promethazine (Phenergan) 25 MG tablet, promethazine 25 mg tablet, Disp: , Rfl: tiZANidine (Zanaflex) 4 MG capsule, , Disp: , Rfl: topiramate (Topamax) 100 MG tablet, topiramate 100 mg tablet, Disp: , Rfl: traZODone (Desyrel) 50 MG tablet, trazodone 50 mg tablet, Disp: , Rfl: Ubrogepant (Ubrelvy) 100 MG tablet, Ubrelvy 100 mg tablet, Disp: , Rfl: Atogepant (Qulipta) 60 MG tablet, Take 1 tablet by mouth daily., Disp: 30 tablet, Rfl: 3 [START ON 12/28/2022] clonazePAM (KlonoPIN) 0.5 MG tablet, Take 1 tablet (0.5 mg) by mouth 2 times daily. Do not start before December 28, 2022., Disp: 60 tablet, Rfl: 2 [START ON 12/13/2022] clonazePAM (KlonoPIN) 1 MG tablet, Take 1 tablet (1 mg) by mouth 2 times dailyfor 14 days. Do not start before December 13, 2022., Disp: 60 tablet, Rfl: 0 [START ON 12/16/2022] eptinezumab (Vyepti) IVPB, Infuse 100 mg into a venous catheter Once for 1 dose. Do not start before December 16, 2022., Disp: 1 each, Rfl: 0 L-Methylfolate 15 MG tablet, Take 1 tablet by mouth daily (with breakfast)., Disp: 30 tablet, Rfl: 11 [START ON 12/11/2022] oxyCODONE-acetaminophen (Percocet) 10-325 MG tablet, Take 1 tablet by mouth every 12 hours as needed for severe pain (7-10) for up to 5 days. Do not start before December 11, 2022., Disp: 15 tablet, Rfl: 0 suvorexant (Belsomra) 15 MG tablet, Take 1 tablet (15 mg) by mouth Nightly. With clonazepam 1 mg, Disp: 30 tablet, Rfl: 0 [START ON 01/02/2023] suvorexant (Belsomra) 20 MG tablet, Take 1 tablet (20 mg) by mouth Nightly. Donot start before January 02, 2023., Disp: 30 tablet, Rfl: 2 Filled Written ID Drug QTY Days Prescriber RX # Dispenser Refill Daily Dose* Pymt Type CLIENT REPRESENTATIVE 11/13/2022 08/27/2022 1 Clonazepam 2 Mg Tablet 30.00 30 Da Ear [id number] Mar ([id number]) 2 4.00 LME Comm [place] 10/24/2022 08/27/2022 1 Oxycodone-Acetaminophen 10-325 15.00 30 Da Ear [id number] Mar ([id number]) 0 7.50 [place] 10/12/2022 08/27/2022 1 Clonazepam 2 Mg Tablet 30.00 30 Da Ear [id number] Mar (8420) 1 4.00 [place] 10/01/2022 09/30/2022 1 Clonazepam 1 Mg Tablet 30.00 30 Ra Fri [id number] Mar (8420) 0 2.00 [place] 09/25/2022 08/27/2022 1 Oxycodone-Acetaminophen 10-325 15.00 30 Da Ear [id number] Mar (8420) 0 7.50 [place] 09/18/2022 08/27/2022 1 Clonazepam 2 Mg Tablet 30.00 30 Da Ear [id number] Mar (8639) 0 4.00 [place] Allergies: Amitriptyline, Azithromycin, Erythromycin base, Gabapentin, Hydrocodone, and Metoclopramide Social History: Social History Socioeconomic History Marital status: Spouse name: Not on file Number of children: Not on file Years of education: Not on file Highest education level: Not on file Occupational History Not on file Tobacco Use Smoking status: Never Smokeless tobacco: Never Substance and Sexual Activity Alcohol use: Not on file Drug use: Not on file Sexual activity: Not on file Other Topics Concern Not on file Social History Narrative Not on file Social Determinants of Health Financial Resource Strain: Not on file Food Insecurity: Not on file Transportation Needs: Not on file Physical Activity: Not on file Stress: Not on file Social Connections: Not on file Intimate Partner Violence: Not on file Housing Stability: Not on file Family History: No family history on file. REVIEW OF SYSTEMS: Review of Systems Constitutional: Positive for fatigue. Negative for appetite change, chills, diaphoresis, fever and unexpected weight change. HENT: Negative for dental problem and mouth sores. Eyes: Negative for discharge and itching. Respiratory: Negative for chest tightness and shortness of breath. Cardiovascular: Negative for chest pain, palpitations and leg swelling. Gastrointestinal: Positive for abdominal pain, nausea and vomiting. Negative for rectal pain. Endocrine: Negative for polydipsia, polyphagia and polyuria. Genitourinary: Negative for decreased urine volume, flank pain and genital sores. Musculoskeletal: Negative for arthralgias, back pain and neck pain. Skin: Negative for color change. Allergic/Immunologic: Negative for food allergies and immunocompromised state. Neurological: Positive for dizziness, syncope, light-headedness and headaches. Negative for weakness. Hematological: Negative for adenopathy. Does not bruise/bleed easily. Psychiatric/Behavioral: Positive for confusion and sleep disturbance. Negative for agitation, behavioral problems, decreased concentration and suicidal ideas. Answers submitted by the patient for this visit: Neurological Problem Questionnaire (Submitted on 12/01/2022) Chief Complaint: Neurologic complaint altered mental status: Yes clumsiness: No focal sensory loss: No focal weakness: No loss of balance: Yes memory loss: Yes near-syncope: Yes slurred speech: No visual change: No Chronicity: chronic Onset: more than 1 year ago Onset quality: insidiously Progression since onset: waxing and waning Focality: no focality noted auditory change: No aura: Yes bladder incontinence: No bowel incontinence: Yes vertigo: Yes Treatments tried: acetaminophen, aspirin, bed rest, drinking, eating, medication, neck support, position change, sleep, walking Improvement on treatment: mild PHYSICAL EXAM: Vitals: BP 123/82 Pulse 82 Ht 5' 2 (1.575 m) Wt 125 lb (56.7 kg) BMI 22.86 kg/m General Appearance: Patient is in no apparent distress. Head is normocephalic, atraumatic Cardiovascular: Regular rate and rhythm. No heart murmurs. No carotid bruit Neurologic: Mentation: Alert and oriented x [address], [address] and time. Speech and Language: Speech and language normal Concentration and Attention: Concentration normal Memory: Memory normal Fund of Knowledge: Fund of knowledge normal Cranial Nerves: II, III, IV, V, , VII, VIII, IX, X, XI, XII tested and were intact including fundoscopic exam (optic discs) and visual field to confrontation. Motor: Strength:Strength 5 out of 5 with normal tone Alternating Movements: Normal Cogwheel Rigidity: None Tone: Tone is normal Tremor / Involuntary Movements: None Deep Tendon Reflexes: 1 out of 4 symmetrical in all four limbs. Sensory: Normal sensation upper and lower extremities Coordination: Normal coordination upper and lower extremities Gait and Station: Station is normal. Gait is normal DATA CBC: No results found for: WBC, RBC, HGB, HCT, MCV, MCH, MCHC, RDW, PLT, MPV CMP: No results found for: NA, K, CL, CO2, BUN, CREATININE, AGRATIO, LABGLOM, GLUCOSE, GLU, PROT, CALCIUM, BILITOT, ALKPHOS, AST, ALT BMP: No results found for: NA, K, CL, CO2, BUN, CREATININE, CALCIUM, LABGLOM, GLUCOSE, GLU PT/INR: No results found for: PROTIME, INR PTT: No results found for: APTT, PTT[APTT} FLP: No results found for: CHLPL, TRIG, HDL, LDLCALC, LDLDIRECT TSH: No results found for: TSH VITAMIN B12: No results found for: BTKSODGH50 FERRITIN: No results found for: FERRITIN ---- No results found for: PHENYTOIN, PHENOBARB, VALPROATE, CBMZ No components found for: TOPIRANo results found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 migraine with intractable migraine Migraine with aura, with intractable migraine, so stated, without mention of status migrainosus 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 [facility]* Diagnosis Episodic migraine Classical migraine with intractable migraine Migraine with aura, with intractable migraine, so stated, without mention of status migrainosus 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 documented in this encounter [facility]* Diagnosis 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- Primary documented in this encounter [facility]* Diagnosis Classical migraine with intractable migraine Migraine with aura, with intractable migraine, so stated, without mention of status migrainosus 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 documented in this encounter [facility]* Diagnosis 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 [facility]* Diagnosis Episodic migraine Classical migraine with intractable migraine Migraine with aura, with intractable migraine, so stated, without mention of status migrainosus 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 documented in this encounter [facility]* Diagnosis Episodic migraine Classical migraine with intractable migraine Migraine with aura, with intractable migraine, so stated, without mention of status migrainosus 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 documented in this encounter [facility]* Diagnosis 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 [facility]* Diagnosis Syncope and collapse- Primary Autonomic dysfunction 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 Primary insomnia Persistent disorder of initiating or maintaining sleep documented in this encounter [facility]* Diagnosis Classical migraine with intractable migraine Migraine with aura, with intractable migraine, so stated, without mention of status migrainosus documented in this encounter [facility]* Diagnosis 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- Primary documented in this encounter [facility]* Diagnosis Classical migraine with intractable migraine Migraine with aura, with intractable migraine, so stated, without mention of status migrainosus 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 documented in this encounter [facility]* Diagnosis Primary insomnia Persistent disorder of initiating or maintaining sleep 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 [facility] Diagnosis Classical migraine with intractable migraine Migraine with aura, with intractable migraine, so stated, without mention of status migrainosus 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 Episodic migraine documented in this encounter [facility]* Diagnosis Classical migraine with intractable migraine Migraine with aura, with intractable migraine, so stated, without mention of status migrainosus 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 Episodic migraine [facility] Diagnosis Classical migraine with intractable migraine Migraine with aura, with intractable migraine, so stated, without mention of status migrainosus 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 Episodic migraine documented in this encounter [facility]* Diagnosis Classical migraine with intractable migraine Migraine with aura, with intractable migraine, so stated, without mention of status migrainosus 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 Episodic migraine documented in this encounter [facility]* Diagnosis Classical migraine with intractable migraine Migraine with aura, with intractable migraine, so stated, without mention of status migrainosus 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 Episodic migraine documented in this encounter [facility]* Diagnosis Classical migraine with intractable migraine Migraine with aura, with intractable migraine, so stated, without mention of status migrainosus 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 documented in this encounter [facility]* Diagnosis 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- Primary documented in this encounter [facility]* Diagnosis Classical migraine with intractable migraine Migraine with aura, with intractable migraine, so stated, without mention of status migrainosus 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 [facility] Classical migraine with intractable migraine Migraine with aura, with intractable migraine, so stated, without mention of status migrainosus 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 Episodic [facility] Diagnosis Classical migraine with intractable migraine Migraine with aura, with intractable migraine, so stated, without mention of status migrainosus 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 Episodic migraine documented in this encounter [facility]* Diagnosis Classical migraine with intractable migraine Migraine with aura, with intractable migraine, so stated, without mention of status migrainosus 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 Episodic [facility] Diagnosis Confusional arousals- Primary Sleep paralysis Sleep related movement disorder, 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 Primary insomnia Persistent disorder of initiating or maintaining sleep Obstructive sleep apnea Obstructive sleep apnea (adult) (pediatric) [facility] Diagnosis Primary insomnia Persistent disorder of initiating or maintaining sleep [facility]* Diagnosis Episodic migraine Classical migraine with intractable migraine Migraine with aura, with intractable migraine, so stated, without mention of status migrainosus 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 [facility]* Diagnosis Primary insomnia- Primary Persistent disorder of initiating or maintaining sleep [facility] Diagnosis Classical migraine with intractable migraine Migraine with aura, with intractable migraine, so stated, without mention of status migrainosus 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 [facility]* Diagnosis 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- Primary [facility] Diagnosis Classical migraine with intractable migraine- Primary Migraine with aura, with intractable migraine, so stated, without mention of status migrainosus 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 [facility] Diagnosis Classical migraine with intractable migraine- Primary Migraine with aura, with intractable migraine, so stated, without mention of status migrainosus 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 Family with history of dementia. History of left ovary removed forovarian cysts. [facility]. * Reports Hemiplegic migraines 4-5 years, numbness right face and right arm, speech difficulties. CT scan was normal, diagnosed as complex migraine. Will feel fuzzy in head prior to episodes now. Dailylower level headache 2/10, more severe headaches 10/10 that occur once weekly, same pattern for 9 years. Feels much better during vacations in [place]. Headaches seem tied to her sleep, not being able to sleep well for multiple nights. Described as right front forehead. Headaches associated with nausea with rare vomiting, dizziness, photophobia/phonophobia. Triggers include lack of sleep, weather changes (pressure drops), smells, light (bright lights, big adjustments in light), Alcohol (red wine, beer), certain foods. Denies triggers to stress, sound. * 6-8 months ago with new symptoms of syncope. After awakening it takes a couple of minutes with memory difficulties, cannot remember who her is. She can awaken in middle of night not knowing where she is. Sometimes does not remember saying things that she said before. Since then has reduced Topamax in the past month, has not yet noticed a change in her recent symptoms. Notes that she has been found asleep in closet or shower without striking head. Has collapsed while talking to in kitchen. Seems different than when she nods off (can be awoken easily) vs with passing out episodes where she is confused when aroused. * Sleep has been bad for years. 3-4 nights 2 hours a night of sleep, then crashes, sleeps okay, then head will feel better. * Denies depression, some anxiety related to health condition. * Occasional Caffeine use, not helpful for headaches. * Has completed surgery for nerve removal for migraines, but migraines did not improve, right eye bothers her after surgery. * CT scan in 03/2021 was normal per patient. * Completed a sleep study in which she was observed after sleep deprivation (was not awakened during test), and sent home with equipment to have sleep observed at home. * Has tried the following medications and treatments: * Naratripan has not yet noticed if it helps. * Nurtec only helpful if done to prevent a headache when taken before. Has not tried as a preventative. * Percocet if other medications not effective. * Topiramate was helpful but concerns if it could be related to recent memory issues. Was on 800mg prior to tapering. Does not seem to be related to kidney stones due to composition. * Amitrtipyline with hallucinations * Gabapentin ankle swelling * Amerge helped in beginning, but later less effective * Imitrex not effective * Tizanidine can be helpful to stop headaches from progressing * Vyepti felt like it may have been helping but overlapped with the syncope episodes * 3 days a month with infusion of Ativan, phnergan, DHE, Toradol, Decadron, Depacon which is helpful for headaches, helps allow to sleep for a week. * Past Meds: * Ondansetron helpful for nausea * Promethazine helpful for nausea * Botox first series helpful for a month (done all over head), second round not helpful (done front right side of head). One series repeated at [facility] without improvement. * Eye match program at [facility] without benefit. * Trigger point injections not helpful. * Occipital nerve block did not help, completed by pain doctor. * Possible epidural without benefit. * Acupuncture, chiropractor without benefit. * This note was partially generated using the [employer] voice recognition system. There may be typographical errors, spelling, or punctuation errors that were not corrected prior to committing the note tothe medical record. [facility] Work Phone: History of Present illness Narrative* Present Illness - anxiety, mild depression * Characteristics/Recent psychiatric symptoms (pertinent positives and negatives) - reports neuro-psych results being discussed with her, gives her a somewhat clearer idea of what she is contending with, but does not alleviate her concerns overall. Reports Trazodone does help her with her sleep quality, but as she takes 100mg @[facility], it can leave her dragging all day long, as Dr. Rosenberg in [place] said that she needs to be careful with her dosing as that can contribute to brain fog. Sleep averages7-9 hrs, and will have 1 night a week of no sleep where her racing thoughts will keep her awake allnight long and admits she will turn the TV on to help distract her, but is aware that TV at night is an issue. Reports per the testing in [place], she was told that there are some signs of ADD but notto the point of being medication management initiated. Reports not able to see depression is an issue for her, as her , after reviewing the results of the testing do reflect some layers of depression impacting her but 'I feel that is more me being emotional in response to situations, than outright depression.' Anxiety can still be triggered by a mild mixture of feeling overwhelmed, worriedand on edge, but as 'nothing to much is going in my life to work me up, that I feel it is a little better.' Reports an increase in hiccuping frequency, intensity that she is now feeling that can impede her ability to stay calm all day long (PCP is having patient doing a scope of her GI tract. Doctor says her stomach is abnormally large and wants to take a closer look at what is happening.). Denies any significant panic attacks (none waking her up overnight). Reports equilibrium issues are stilla concern for her, and has fallen several times, but not to the point of injury (falling on bed when losing sense of balance). Reports energy levels are low, and more so mentally and physically fatigued, in response to the daytime brain fog, sluggishness and vertigo issues, but also racing thoughtskeeps happening - leaves her at times wiped out. Reports obsessive thoughts will impact her, but 'when I can't remember something, I will obsessive and try to recall what I wanted to talk about, likerecalling a name of a girl I went to h.s. with, but nothing like me worrying about the weather. I just do it, because it irritates me that I can't remember things.' Reports anhedonia is not an issue.Appetite is 'still low. I can have one meal a day, like a milkshake and that is all I need. It still is concerning because my stomach is bigger than usual.' Still reports she is very task oriented and not easily distracted. Reports impulsive purchasing continues to improve as she and with her 's support, focus on themselves and for the future. Reports not certain if the Buspar had positively impacted her anxiety, as when compares her anxiety 2 months ago (more things going on then) to today, she feels it could also be the external issues are not as worrisome as before. Reports attention issues are still an issue for her - eg can't remember from a book what 1/2 of what she read. * Onset/timeframe - 4 weeks * Type - anxiety, obsessive thinking * Duration - situational * Aggravating and/or relieving factors/triggers - planning ahead for vacations, and being at home more than being out in public. * Related symptoms * Treatment and treatment changes (new meds, dosage increases or decreases, med compliance, therapy frequency, etc.) (Past and Recent) - Buspar 7.5mg BID, Klonopin 2mg (1.5 years), Trazodone 100mg @[facility]. * Issues: Denies SI/HI/AVH. [id number] Work Phone: History of Present illness Narrative* Both the patient, and family and caregivers and guardians as appropriate, were informed of the current need to conduct treatment via telephone. I have confirmed the patient s identity via the following (minimum of three) acceptable identifiers as per Policy PH-9: , [place] home address. * Present Illness - anxiety, mild depression * Characteristics/Recent psychiatric symptoms (pertinent positives and negatives) - reports neuro-psych results being discussed with her, gives her a somewhat clearer idea of what she is contending with, but does not alleviate her concerns overall. Reports Trazodone does help her with her sleep quality, but as she takes 100mg @[facility], it can leave her dragging all day long, as Dr. Rosenberg in [place] said that she needs to be careful with her dosing as that can contribute to brain fog. Sleep averages7-9 hrs, and will have 1 night a week of no sleep where her racing thoughts will keep her awake allnight long and admits she will turn the TV on to help distract her, but is aware that TV at night is an issue. Reports per the testing in [place], she was told that there are some signs of ADD but notto the point of being medication management initiated. Reports not able to see depression is an issue for her, as her , after reviewing the results of the testing do reflect some layers of depression impacting her but 'I feel that is more me being emotional in response to situations, than outright depression.' Anxiety can still be triggered by a mild mixture of feeling overwhelmed, worriedand on edge, but as 'nothing to much is going in my life to work me up, that I feel it is a little better.' Reports an increase in hiccuping frequency, intensity that she is now feeling that can impede her ability to stay calm all day long (PCP is having patient doing a scope of her GI tract. Doctor says her stomach is abnormally large and wants to take a closer look at what is happening.). Denies any significant panic attacks (none waking her up overnight). Reports equilibrium issues are stilla concern for her, and has fallen several times, but not to the point of injury (falling on bed when losing sense of balance). Reports energy levels are low, and more so mentally and physically fatigued, in response to the daytime brain fog, sluggishness and vertigo issues, but also racing thoughtskeeps happening - leaves her at times wiped out. Reports obsessive thoughts will impact her, but 'when I can't remember something, I will be obsessive and try to recall what I wanted to talk about, like recalling a name of a girl I went to h.s. with, but nothing like me worrying about the weather. I just do it, because it irritates me that I can't remember things.' Reports anhedonia is not an issue. Appetite is 'still low. I can have one meal a day, like a milkshake and that is all I need. It still is concerning because my stomach is bigger than usual.' Still reports she is very task orientedand not easily distracted. Reports impulsive purchasing continues to improve as she and with her 's support, focus on themselves and for the future. Reports not certain if the Buspar had positi vely impacted her anxiety, as when compares her anxiety 2 months ago (more things going on then) daryn, she feels it could also be the external issues are not as worrisome as before. Reports attention issues are still an issue for her - eg can't remember from a book what 1/2 of what she read. * Onset/timeframe - 4 weeks * Type - anxiety, obsessive thinking * Duration - situational * Aggravating and/or relieving factors/triggers - memory issues * Related symptoms * Treatment and treatment changes (new meds, dosage increases or decreases, med compliance, therapy frequency, etc.) (Past and Recent) - Buspar 7.5mg BID, Klonopin 2mg (1.5 years), Trazodone 100mg @[facility]. * Issues: Denies SI/HI/AVH. [id number] Work Phone: Reason for referral (narrative)* Diagnostic Procedure Only (Routine) - Pending Review Specialty Diagnoses / Procedures Referred By Rusty paulino Referred To Contact [facility] Diagnoses Visit for screening mammogram Procedures ISAIAS SCREENING SCREENING MAMMOGRAPHY BI 2-VIEW BREAST INC Ant Beal MD [address] [place] [address] [facility] [address] [place] [address] Referral ID Status Reason Start Date Expiration Date Visits Requested Visits Authorized [id number] Pending Review Auto-Generat ed Referral 10/31/2022 11/27/2023 1 1 [facility] for referral (narrative)* Diagnostic Procedure Only (Routine) - Pending Review Specialty Diagnoses / Procedures Referred By Rusty paulino Referred To Contact [facility] Diagnoses Encounter for screening mammogram for breast cancer Procedures ISAIAS SCREENING W ARTI SCREENING DIGITAL BREAST TOMOSYNTHESIS BI SCREENING MAMMOGRAPHY BI 2-VIEW BREAST INC Ant Beal MD [address] [place] [address] [facility] [address] [place] [address] Referral ID Status Reason Start Date Expiration Date Visits Requested Visits Authorized [id number] Pending Review Auto-Generat ed Referral 12/11/2023 01/09/2025 1 1 [facility] for referral (narrative)* Diagnostic Procedure Only (Routine) - Closed Specialty Diagnoses / Procedures Referred By Rusty paulino Referred To Contact [facility] Diagnoses Encounter for screening mammogram for malignant neoplasm of breast Dense breast tissue on mammogram, unspecified type Procedures ISAIAS SCREENING W ARTI SCREENING DIGITAL BREAST TOMOSYNTHESIS BI SCREENING MAMMOGRAPHY BI 2-VIEW BREAST INC Ant Beal MD [address] [place] [address] [facility] [address] [place] [address] Referral ID Status Reason Start Date Expiration Date V isits Requested Visits Authorized [id number] Closed Auto-Generate d Referral 10/30/2023 11/28/2024 1 1 [facility] for visit Narrative* Diagnostic Procedure Only (Routine) - Closed Specialty Diagnoses / Procedures Referred By Rusty paulino Referred To Contact [facility] Diagnoses Encounter for screening mammogram for malignant neoplasm of breast Dense breast tissue on mammogram, unspecified type Procedures ISAIAS SCREENING W ARTI SCREENING DIGITAL BREAST TOMOSYNTHESIS BI SCREENING MAMMOGRAPHY BI 2-VIEW BREAST INC CAD Ant Xavier MD [address] [place] [address] [facility] [address] [facility] [place] [place] [address] Referral ID Status Reason Start Date Expiration Date V isits Requested Visits Authorized [id number] Closed Auto-Generate d Referral 10/30/2023 11/28/2024 1 1 [facility] Summary Purpose Family History No Family History Records FoundUnknown Family Member Name Dates Details Family history of dementia: Father, Paternal Grandfather(V17.2, Z81.8) Status:Active FH: Parkinson's disease: Mat ernal Grandmother, Paternal Relatives(V17.2, Z82.0) Status:Active Family history of Alzheimer' s disease: Maternal Great Grandfather, Paternal Relatives(V17.2, Z82.0) Status:Active Unknown Family Member Name Dates Details Family history of dementia: Father, Paternal Grandfather(V17.2, Z81.8) Status:Active FH: Parkinson's disease: Mat ernal Grandmother, Paternal Relatives(V17.2, Z82.0) Status:Active Family history of Alzheimer' s disease: Maternal Great Grandfather, Paternal Relatives(V17.2, Z82.0) Status:Active Unknown Family Member Name Dates Details Family history of dementia: Father, Paternal Grandfather(V17.2, Z81.8) Status:Active FH: Parkinson's disease: Mat ernal Grandmother, Paternal Relatives(V17.2, Z82.0) Status:Active Family history of Alzheimer' s disease: Maternal Great Grandfather, Paternal Relatives(V17.2, Z82.0) Status:Active Unknown Family Member Name Dates Details Family history of dementia: Father, Paternal Grandfather(V17.2, Z81.8) Status:Active FH: Parkinson's disease: Mat ernal Grandmother, Paternal Relatives(V17.2, Z82.0) Status:Active Family history of Alzheimer' s disease: Maternal Great Grandfather, Paternal Relatives(V17.2, Z82.0) Status:Active Unknown Family Member Name Dates Details Family history of dementia: Father, Paternal Grandfather(V17.2, Z81.8) Status:Active FH: Parkinson's disease: Mat ernal Grandmother, Paternal Relatives(V17.2, Z82.0) Status:Active Family history of Alzheimer' s disease: Maternal Great Grandfather, Paternal Relatives(V17.2, Z82.0) Status:Active Unknown Family Member Name Dates Details Family history of dementia: Father, Paternal Grandfather(V17.2, Z81.8) Status:Active FH: Parkinson's disease: Mat ernal Grandmother, Paternal Relatives(V17.2, Z82.0) Status:Active Family history of Alzheimer' s disease: Maternal Great Grandfather, Paternal Relatives(V17.2, Z82.0) Status:Active Relationship Condition Age at Onset Recorded Date/T evelyn father Mitral valve prolapse Unknown Unknown Family Member Name Dates Details Family history of dementia: Father, Paternal Grandfather(V17.2, Z81.8) Status:Active FH: Parkinson's disease: Mat ernal Grandmother, Paternal Relatives(V17.2, Z82.0) Status:Active Family history of Alzheimer' s disease: Maternal Great Grandfather, Paternal Relatives(V17.2, Z82.0) Status:Active Advance Directives No Advanced Directives Records FoundDocuments on File Type Date Recorded Patient Azure Architect Expl anation Power of Detail Manager 04/06/2025 9:58 AM Date Activated Date Inactivated Comments 03/26/2023 1:20 PM 03/29/2023 4:08 PM Healthcare Agents on File Name Relationship Healthcare Agent Relationshi p Communication Ar Kimsanket Spouse Health Care Agent Date Activated Date Inactivated Comments 03/26/2023 1:20 PM 03/29/2023 4:08 PM Healthcare Agents on File Name Relationship Healthcare Agent Luigihi p Communication Ar Kimsanket Partner Health Care Agent Advance Directive Response Recorded Date/ Time Advance Directives No October 20, 2015 6:18pm Living Will No September 15, 020 2:54pm Power of Detail Manager No September 15, 2020 2:54pm Advance Directive Response Recorded Date/ Time Advance Directives No October 20, 2015 6:18pm Living Will No February 18, 2022 12 :10pm Power of Detail Manager No February 18, 2022 12:10pm Advance Directive Response Recorded Date/ Time Advance Directives No October 20, 2015 6:18pm Living Will No April 16, 2022 5:30pm Power of Detail Manager No April 16 5:30pm Advance Directive Response Recorded Date/ Time Advance Directives No October 20, 2015 5:18pm Living Will No December 12, 023 4:21pm Power of Detail Manager No December 12, 2022 4:21pm Advance Directive Response Recorded Date/ Time Advance Directives No October 20, 2015 5:18pm Living Will No December 18, 2022 10:28am Power of Detail Manager No December 18 10:28am Advance Directive Response Recorded Date/ Time Advance Directives No October 20, 2015 5:18pm Living Will No December 18, 2022 9:25pm Power of Detail Manager No December 18 9:25pm Latest Code Status on File Code Status Date Activated Date Inactivated Comments Full Code 03/26/2023 1:20 PM Latest Code Status on File Code Status Date Activated Date Inactivated Comments Full Code 03/26/2023 1:20 PM 03/29/2023 4:08 PM Healthcare Agents on File Name Relationship Healthcare Agent Relationshi p Communication Ar Michelle Partner Health Care Agent Latest Code Status on File Code Status Date Activated Date Inactivated Comments Full Code 03/26/2023 1:20 PM 03/29/2023 4:08 PM Healthcare Agents on File Name Relationship Healthcare Agent Relationshi p Communication Ar Michelle Partner Health Care Agent Healthcare Agents on File Name Relationship Healthcare Agent Relationshi p Communication Ar Michelle Partner Health Care Agent Healthcare Agents on File Name Relationship Healthcare Agent Relationshi p Communication Ar Michelle Partner Health Care Agent Healthcare Agents on File Name Relationship Healthcare Agent Relationshi p Communication Ar Michelle Partner Health Care Agent Healthcare Agents on File Name Relationship Healthcare Agent Relationshi p Communication Ar Michelle Partner Health Care Agent Healthcare Agents on File Name Relationship Healthcare Agent Relationshi p Communication Ar Michelle Partner Health Care Agent Advance Directive Response Recorded Date/ Time Advance Directives No October 20, 2015 6:18pm Living Will No December 18, 2022 10:25pm Power of Detail Manager No December 18 10:25pm Healthcare Agents on File Name Relationship Healthcare Agent Relationshi p Communication Ar Michlele Partner Health Care Agent Healthcare Agents on File Name Relationship Healthcare Agent Relationshi p Communication Ar Michelle Partner Health Care Agent Healthcare Agents on File Name Relationship Healthcare Agent Relationshi p Communication Ar Michelle Partner Health Care Agent Healthcare Agents on File Name Relationship Healthcare Agent Relationshi p Communication Ar Michelle Partner Health Care Agent Healthcare Agents on File Name Relationship Healthcare Agent Relationshi p Communication Ar Michelle Partner Health Care Agent Healthcare Agents on File Name Relationship Healthcare Agent Relationshi p Communication Ar Michelle Partner Health Care Agent Healthcare Agents on File Name Relationship Healthcare Agent Relationshi p Communication Ar Mcihelle Partner Health Care Agent Healthcare Agents on File Name Relationship Healthcare Agent Relationshi p Communication Ar Michelle Partner Health Care Agent Healthcare Agents on File Name Relationship Healthcare Agent Relationshi p Communication Ar Michelle Partner Health Care Agent Healthcare Agents on File Name Relationship Healthcare Agent Relationshi p Communication Ar Michelle Partner Health Care Agent Healthcare Agents on File Name Relationship Healthcare Agent Relationshi p Communication Ar Michelle Partner Health Care Agent Healthcare Agents on File Name Relationship Healthcare Agent Relationshi p Communication Ar Michelle Partner Health Care Agent Healthcare Agents on File Name Relationship Healthcare Agent Relationshi p Communication Ar Michelle Partner Health Care Agent Healthcare Agents on File Name Relationship Healthcare Agent Relationshi p Communication Ar Michelle Partner Health Care Agent Healthcare Agents on File Name Relationship Healthcare Agent Relationshi p Communication Ar Michelle Partner Health Care Agent Healthcare Agents on File Name Relationship Healthcare Agent Relationshi p Communication Ar Michelle Partner Health Care Agent Healthcare Agents on File Name Relationship Healthcare Agent Relationshi p Communication Ar Michelle Partner Health Care Agent Healthcare Agents on File Name Relationship Healthcare Agent Relationshi p Communication Ar Michelle Partner Health Care Agent Healthcare Agents on File Name Relationship Healthcare Agent Relationshi p Communication Ar Michelle Partner Health Care Agent Healthcare Agents on File Name Relationship Healthcare Agent Relationshi p Communication Ar Michelle Partner Health Care Agent Healthcare Agents on File Name Relationship Healthcare Agent Relationshi p Communication Ar Michelle Partner Health Care Agent Healthcare Agents on File Name Relationship Healthcare Agent Relationshi p Communication Ar Michelle Partner Health Care Agent Healthcare Agents on File Name Relationship Healthcare Agent Relationshi p Communication Ar Michelle Partner Health Care Agent Healthcare Agents on File Name Relationship Healthcare Agent Relationshi p Communication Ar Michelle Partner Health Care Agent Healthcare Agents on File Name Relationship Healthcare Agent Relationshi p Communication Ar Michelle Partner Health Care Agent Healthcare Agents on File Name Relationship Healthcare Agent Relationshi p Communication Ar Michelle Partner Health Care Agent Healthcare Agents on File Name Relationship Healthcare Agent Relationshi p Communication Ar Michelle Partner Health Care Agent Healthcare Agents on File Name Relationship Healthcare Agent Relationshi p Communication Ar Michelle Partner Health Care Agent Healthcare Agents on File Name Relationship Healthcare Agent Relationshi p Communication Ar Michelle Partner Health Care Agent Healthcare Agents on File Name Relationship Healthcare Agent Relationshi p Communication Ar Michelle Partner Health Care Agent Healthcare Agents on File Name Relationship Healthcare Agent Relationshi p Communication Ar Michelle Partner Health Care Agent Healthcare Agents on File Name Relationship Healthcare Agent Relationshi p Communication Ar Michelle Partner Health Care Agent Healthcare Agents on File Name Relationship Healthcare Agent Relationshi p Communication Ar Michelle Partner Health Care Agent Healthcare Agents on File Name Relationship Healthcare Agent Relationshi p Communication Ar Michelle Partner Health Care Agent Healthcare Agents on File Name Relationship Healthcare Agent Relationshi p Communication Ar Michelle Partner Health Care Agent Healthcare Agents on File Name Relationship Healthcare Agent Relationshi p Communication Ar Michelle Partner Health Care Agent Healthcare Agents on File Name Relationship Healthcare Agent Relationshi p Communication Ar Michelle Partner Health Care Agent Healthcare Agents on File Name Relationship Healthcare Agent Relationshi p Communication Ar Michelle Partner Health Care Agent Healthcare Agents on File Name Relationship Healthcare Agent Relationshi p Communication Ar Michelle Spouse Health Care Agent Healthcare Agents on File Name Relationship Healthcare Agent Relationshi p Communication Ar Michelle Spouse Health Care Agent Healthcare Agents on File Name Relationship Healthcare Agent Relationshi p Communication Ar Michelle Spouse Health Care Agent Healthcare Agents on File Name Relationship Healthcare Agent Relationshi p Communication Ar Michelle Spouse Health Care Agent Healthcare Agents on File Name Relationship Healthcare Agent Relationshi p Communication Ar Michelle Spouse Health Care Agent Healthcare Agents on File Name Relationship Healthcare Agent Relationshi p Communication Ar Michelle Spouse Health Care Agent Healthcare Agents on File Name Relationship Healthcare Agent Relationshi p Communication Ar Michelle Spouse Health Care Agent Healthcare Agents on File Name Relationship Healthcare Agent Relationshi p Communication Ar Michelle Spouse Health Care Agent Healthcare Agents on File Name Relationship Healthcare Agent Relationshi p Communication Ar Michelle Spouse Health Care Agent Healthcare Agents on File Name Relationship Healthcare Agent Relationshi p Communication Ar Michelle Spouse Health Care Agent Healthcare Agents on File Name Relationship Healthcare Agent Relationshi p Communication Ar Michelle Spouse Health Care Agent Healthcare Agents on File Name Relationship Healthcare Agent Relationshi p Communication Ar Michelle Spouse Health Care Agent Healthcare Agents on File Name Relationship Healthcare Agent Relationshi p Communication Ar Michelle Spouse Health Care Agent Healthcare Agents on File Name Relationship Healthcare Agent Relationshi p Communication Ar Michelle Spouse Health Care Agent Documents on File Type Date Recorded 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 * Patient was referred to psychiatry by her sleep specialist to review mental health concerns. Chief Complaint and Reason for Visit Chief Complaint FREQUENT HICCUPS/VOM ITING GASTROPARESIS Reason for Visit Hiccups Laryngitis Chief Complaint FREQUENT HICCUPS/VOM ITING GASTROPARESIS LOW HR (JOLLIFF) Pre-Surgical Testing PAT Reason for Visit Hiccups Laryngitis Bradycardia Chief Complaint FREQUENT HICCUPS/VOM ITING GASTROPARESIS LOW HR (JOLLIFF) Pre-Surgical Testing PAT PAT 2 WK FU EORDER ARRYTHMIA Reason for Visit Hiccups Laryngitis Bradycardia Esophagitis Hiccups Laryngitis Chief Complaint FREQUENT HICCUPS/VOM ITING GASTROPARESIS LOW HR (JOLLIFF) Pre-Surgical Testing PAT PAT 2 WK FU EORDER ARRYTHMIA POSITIVE COVID/ILL abdominal pain Reason for Visit Hiccups Laryngitis Bradycardia Esophagitis Hiccups Laryngitis COVID Chief Complaint FLANK PAIN 3 MO FU 3 MO FU ABDOMINAL PAIN Reason for Visit Constipation Hiccups Laryngitis Constipation Gastroparesis Hiccups Laryngitis Chief Complaint 3 MO FU 3 MO FU ABDOMINAL PAIN INT RAD INTRACATABLE NAUSEA AND VOMITING INTRACATABLE NAUSEA AND VOMITING Reason for Visit Constipation Hiccups Laryngitis Constipation Gastroparesis Hiccups Laryngitis Abdominal pain Common bile duct dilatation Elevated serum creatinine Gastroparesis Hypoglycemia Intractable nausea and vomiting Chief Complaint 3 MO FU ABDOMINAL PAIN INT RAD INTRACATABLE NAUSEA AND VOMITING INTRACATABLE NAUSEA AND VOMITING INTRACATABLE NAUSEA AND VOMITING INTRACATABLE NAUSEA AND VOMITING INTRACATABLE NAUSEA AND VOMITING INTRACATABLE NAUSEA AND VOMITING Reason for Visit Constipation Gastroparesis Hiccups Laryngitis Abdominal pain Common bile duct dilatation Elevated serum creatinine Gastroparesis Hypoglycemia Intractable nausea and vomiting Chief Complaint 3 MO FU 4 MO FU GASTROPARESIS Reason for Visit Constipation Gastroparesis Hiccups Laryngitis Constipation Gastroparesis Hiccups Laryngitis Chief Complaint 4 MO FU GASTROPARESIS SORE THROAT COUGH/LEFT SIDE RIB 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 Reason for Visit Constipation Gastroparesis Hiccups Laryngitis Acute pharyngitis Acute maxillary sinusitis, unspecified Contact with or exposure to other viral diseases Right upper lobe pulmonary nodule URI (upper respiratory infection) Reason for Referral Specialty Diagnoses / Procedures Referred By Rusty paulino Referred To Contact Diagnoses 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 Lorenzo Lr MD [address] [facility] [address] [place] [address] Referral ID Status Reason Start Date Expiration Date V isits Requested Visits Authorized [id number] Pending Review 01/27/2023 07/26/2023 1 1 Specialty Diagnoses / Procedures Referred By Rusty paulino Referred To Contact Cardiology Diagnoses Syncope and collapse Procedures [place] OFFICE/OUTPATIENT [facility] MDM 60-74 MINUTES Lorenzo Lr MD [address] [facility] [address] [place] [address] Referral ID Status Reason Start Date Expiration Date Visits Requested Visits Authorized [id number] Pending Review Specialty Services Required 01/27/2023 01/27/2024 1 1 Scheduling Instructions Brian Kam [facility] Mail Code J2-[address] [place] [address] Appointment:[phone]:[phone]:[phone] Specialty Diagnoses / Procedures Referred By Rusty paulino Referred To Contact Radiology Diagnoses Syncope and collapse Autonomic dysfunction Procedures MR brain w and wo contrast Venu Mccall MD [facility] [address] [place] [address] Referral ID Status Reason Start Date Expiration Date V isits Requested Visits Authorized [id number] Pending Review 02/03/2023 08/02/2023 1 1 Specialty Diagnoses / Procedures Referred By Contac t Referred To Contact Diagnoses Syncope and collapse Autonomic dysfunction Procedures EEG ACTUARIAL SCIENCE 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 MONITORING 2 - 3 DAY Venu Romero MD [address] [facility] [address] [place] [address] Referral ID Status Reason Start Date Expiration Date V isits Requested Visits Authorized [id number] Incomplete 02/03/2023 08/02/2023 1 1 Referral ID Status Reason Start Date Expiration Date Visits Re quested Visits Authorized [id number] Closed 02/03/2023 08/02/2023 1 1 Specialty Diagnoses / Procedures Referred By Contac t Referred To Contact Neurology Diagnoses Complex partial seizures with consciousness impaired (HCC) Procedures Ambulatory EEG 48 hours Venu Mccall MD [address] [facility] [address] [place] [address] Referral ID Status Reason Start Date Expiration Date V isits Requested Visits Authorized [id number] Pending Review 04/04/2023 10/01/2023 1 1 Specialty Diagnoses / Procedures Referred By Contac t Referred To Contact Lorenzo Lr MD [address] [facility] [address] [place] [address] Referral ID Status Reason Start Date Expiration Date Visits Re quested Visits Authorized [id number] Closed 1 1 Referral ID Status Reason Start Date Expiration Date V isits Requested Visits Authorized [id number] Pending Review 04/08/2023 10/05/2023 1 1 Specialty Diagnoses / Procedures Referred By Contac t Referred To Contact Diagnoses 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 Iron Krishnan, DOG BREEDER - CHARO [address] [place] [address] Referral ID Status Reason Start Date Expiration Date V isits Requested Visits Authorized [id number] Pending Review 08/15/2023 02/11/2024 1 1 Referral ID Status Reason Start Date Expiration Date V isits Requested Visits Authorized [id number] Pending Review 11/12/2023 11/06/2024 1 1 Referral ID Status Reason Start Date Expiration Date Visits Re quested Visits Authorized [id number] Closed 1 1 Referral ID Status Reason Start Date Expiration Date V isits Requested Visits Authorized [id number] Pending Review 02/06/2024 01/31/2025 1 1 Referral ID Status Reason Start Date Expiration Date Visits Re quested Visits Authorized [id number] Closed 07/12/2024 07/07/2025 1 1 Referral ID Status Reason Start Date Expiration Date V isits Requested Visits Authorized [id number] Pending Review 1 1 Specialty Diagnoses / Procedures Referred By Contac t Referred To Contact Neurology Diagnoses Syncope and collapse Autonomic dysfunction Procedures [place] OFFICE/OUTPATIENT [facility] 60-74 MINUTES Lorenzo Lr MD [address] [facility] [address] [place] [address] Venu Mccall MD [address] [facility] [address] [place] [address] Referral ID Status Reason Start Date Expiration Date Visits Requested Visits Authorized [id number] Pending Review Specialty Services Required 12/02/2022 12/02/2023 1 1 Specialty Diagnoses / Procedures Referred By Contac t Referred To Contact Cardiology Diagnoses Syncope and collapse Autonomic dysfunction Procedures [place] OFFICE/OUTPATIENT [facility] 60-74 MINUTES Lorenzo Lr MD [address] [place] [address] Juan Kam [address] [place] [address] Referral ID Status Reason Start Date Expiration Date Visits Requested Visits Authorized [id number] Pending Review Specialty Services Required 12/02/2022 12/02/2023 1 1 Referral ID Status Reason Start Date Expiration Date Visits Re quested Visits Authorized [id number] Closed 1 1 Additional Source Comments INFORMATION SOURCE (unrecogn ized section and content) DATE CREATED AUTHOR 11/05/2019 [employer] ([place]) DATE CREATED AUTHOR AUTHOR'S ORGANIZ ATION 01/08/2022 [employer] DATE CREATED AUTHOR AUTHOR'S ORGANIZ ATION 03/10/2022 [facility] DATE CREATED AUTHOR AUTHOR'S ORGANIZ ATION 04/14/2024 [facility] DATE CREATED AUTHOR AUTHOR'S ORGANIZ ATION 04/14/2025 [facility] DATE CREATED AUTHOR AUTHOR'S ORGANIZ ATION 04/17/2025 [facility] Goals (unrecognized section and content) Goals may be documented in a n alternate sectionGoals may be documented in an alternate sectionGoals may be documented in an alternate sectionGoals may be documented in an alternate sectionGoals may be documented in an alternate sectionGoals may be documented in an alternate sectionGoals may be documented in an alternate sectionGoals may be documented in an alternate section Source Comments (unrecognize d section and content) In the event this informatio n is protected by the Federal Confidentiality of Alcohol and Drug Abuse Patient Records regulations: The Federal rules restrict any use of the information to criminally investigate or prosecute any alcohol or drug abuse patient.[facility] the event this information is protected by the Federal Confidentiality of Alcohol and Drug Abuse Patient Records regulations: The Federal rules restrict any use of the information to criminally investigate or prosecute any alcohol or drug abuse patient.[facility] the event this information is protected by the Federal Confidentiality of Alcohol and Drug Abuse Patient Records regulations: The Federal rules restrict any use of the information to criminally investigate or prosecute any alcohol or drug abuse patient.[facility] the event this information is protected by the Federal Confidentiality of Alcohol and Drug Abuse Patient Records regulations: The Federal rules restrict any use of the information to criminally investigate or prosecute any alcohol or drug abuse patient.[facility] the event this information is protected by the Federal Confidentiality of Alcohol and Drug Abuse Patient Records regulations: The Federal rules restrict any use of the information to criminally investigate or prosecute any alcohol or drug abuse patient.[facility] the event this information is protected by the Federal Confidentiality of Alcohol and Drug Abuse Patient Records regulations: The Federal rules restrict any use of the information to criminally investigate or prosecute any alcohol or drug abuse patient.[facility] Care Teams (unrecognized sec tion and content) Body Mechanic Relationship Specialty Start Date End Date Nikky Pillai [address] [place] [address] PCP - General 06/08/02 Team Status: Active Member Role Status Dates Dr. Nikky Pillai MD Family Provider Active Dr. Nikky Pillai MD Primary Care Provider Active Team Status: Inactive Member Role Status Dates Dr. Nikky Pillai MD Primary Care Provider, Referrin g Provider Active Dr. Jamie Cuevas , Attending Provider Active Team Status: Inactive Member Role Status Dates Dr. Nikky Pillai MD Primary Care Provider Active Dr. Tang Solis , DO Attending Provider, Emergency P robert Active Team Status: Inactive Member Role Status Dates Dr. Nikky Pillai MD Primary Care Provider Active Dr. Vibha Almonte , DO Emergency Provider Active Team Status: Active Member Role Status Dates Dr. Nikky Pillai MD Primary Care Provider Active Dr. Carie King , Emergency Provider Active Dr. Silvia Coates , DO Admit Provider, Att ending Provider, Other Provider Active Team Status: Active Member Role Status Dates Dr. Nikky Pillai MD Primary Care Provider Active Dr. Jamie Cuevas , DO Attending Provider, Referring Provider Active Team Status: Active Member Role Status Dates Dr. Nikky Pillai MD Primary Care Provider Active Dr. Carie King DO Emergency Provider Active Dr. Silvia Coates , DO Admit Provider, Attending Provide r Active Team Status: Active Member Role Status Dates Dr. Nikky Pillai MD Primary Care Provider Active Dr. Carie King DO Emergency Provider Active Dr. Silvia Coates , DO Admit Provider, Other Provider Ac tive Dr. Jamie Cuevas , DO Other Provider Active Dr. Butch Dinero MD Attending Provider, Other Provider Active Team Status: Active Member Role Status Dates Dr. Nikky Pillai MD Primary Care Provider Active Dr. Carie King DO Emergency Provider Active Dr. Silvia Coates , DO Admit Provider, Other Provider Ac tive Dr. Jamie Cuevas , DO Attending Provider, Other Prov ider Active Dr. Butch Dinero MD Other Provider Active Team Status: Active Member Role Status Dates Dr. Nikky Pillai MD Primary Care Provider Active Dr. Jamie Cuevas , DO Attending Provider Active Team Status: Inactive Member Role Status Dates Dr. Nikky Pillai MD Primary Care Provider Active Dr. Vibha Almonte , DO Attending Provider, Emergency Pro vider Active Team Status: Inactive Member Role Status Dates Dr. Nikky Pillai MD Primary Care Provider Active Dr. Carie King , Emergency Provider Active Dr. Silvia Coates , DO Admit Provider, Other Provider Ac tive Dr. Jamie Cuevas , DO Other Provider Active Dr. Butch Dinero MD Attending Provider Active Team Status: Inactive Member Role Status Dates Dr. Nikky Pillai MD Primary Care Provider Active Dr. Jamie Cuevas , DO Attending Provider, Referring Provider Active Body Mechanic Relationship Specialty Start Date End Date Nikky Pillai [address] [place], [place] [address] PCP - General 06/08/02 Body Mechanic Relationship Specialty Start Date End Date GeovannaNikky dey [address] [place] [address] PCP - General Family Medicine 12/02/22 Body Mechanic Relationship Specialty Start Date End Date Nikky Pillai [address] [place] [address] PCP - General Family Medicine 12/02/22 Body Mechanic Relationship Specialty Start Date End Date JudiNikky ventura [address] [place] [address] PCP - General Family Medicine 12/02/22 Body Mechanic Relationship Specialty Start Date End Date Nikky Pillai [address] [place] [address] PCP - General Family Medicine 12/02/22 Body Mechanic Relationship Specialty Start Date End Date Judilorenzo Nikky Cotot [address] [place] [address] PCP - General Family Medicine 12/02/22 Body Mechanic Relationship Specialty Start Date End Date Nikky Pillai [address] [place] [address] PCP - General Family Medicine 12/02/22 Body Mechanic Relationship Specialty Start Date End Date Nikky Pillai [address] [place] [address] PCP - General Family Medicine 12/02/22 Body Mechanic Relationship Specialty Start Date End Date Nikky Pillai [address] [place] [address] PCP - General Family Medicine 12/02/22 Body Mechanic Relationship Specialty Start Date End Date Nikky Pillai [address] [place] [address] PCP - General Family Medicine 12/02/22 Body Mechanic Relationship Specialty Start Date End Date Nikky Pillai [address] [place] [address] PCP - General Family Medicine 12/02/22 Body Mechanic Relationship Specialty Start Date End Date Nikky Pillai [address] [place] [address] PCP - General Family Medicine 12/02/22 Body Mechanic Relationship Specialty Start Date End Date Nikky Pillai [address] [place] [address] PCP - General Family Medicine 12/02/22 Body Mechanic Relationship Specialty Start Date End Date Nikky Pillai [address] [place] [address] PCP - General Family Medicine 12/02/22 Body Mechanic Relationship Specialty Start Date End Date Nikky Pillai [address] [place] [address] PCP - General Family Medicine 12/02/22 Body Mechanic Relationship Specialty Start Date End Date Nikky Pillai [address] [place] [address] PCP - General Family Medicine 12/02/22 Body Mechanic Relationship Specialty Start Date End Date Nikky Pillai [address] [place] [address] PCP - General Family Medicine 12/02/22 Body Mechanic Relationship Specialty Start Date End Date Nikky Pillai [address] [place] [address] PCP - General Family Medicine 12/02/22 Body Mechanic Relationship Specialty Start Date End Date Nikky Pillai [address] [place] [address] PCP - General Family Medicine 12/02/22 Team Status: Inactive Member Role Status Dates Dr. Nikky Pillai MD Primary Care Provider, Referrin g Provider Active Carl TORRES, PA Attending Provider Active Team Status: Inactive Member Role Status Dates Dr. Nikky Pillai MD Primary Care Provider, Referrin g Provider Active Kelby TORRES, PA Attending Provider Active Team Status: Inactive Member Role Status Dates Dr. Nikky Pillai MD Primary Care Provider Active Kelby TORRES, PA Attending Provider, Referring Pr ovider Active Body Mechanic Relationship Specialty Start Date End Date Nikky Pillai [address] [place] [address] PCP - General 06/08/02 Body Mechanic Relationship Specialty Start Date End Date Nikky Pillai [address] [place] [address] PCP - General Family Medicine 12/02/22 Body Mechanic Relationship Specialty Start Date End Date Nikky Pillai [address] [place] [address] PCP - General Family Medicine 12/02/22 Body Mechanic Relationship Specialty Start Date End Date Nikky Pillai [address] [place] [address] PCP - General Family Medicine 12/02/22 Body Mechanic Relationship Specialty Start Date End Date Nikky Pillai [address] [place] [address] PCP - General Family Medicine 12/02/22 Body Mechanic Relationship Specialty Start Date End Date Nikky Pillai [address] [place] [address] PCP - General Family Medicine 12/02/22 Body Mechanic Relationship Specialty Start Date End Date Nikky Pillai [address] [place] [address] PCP - General Family Medicine 12/02/22 Body Mechanic Relationship Specialty Start Date End Date Nikky Pillai [address] [place] [address] PCP - General Family Medicine 12/02/22 Body Mechanic Relationship Specialty Start Date End Date Nikky Pillai [address] [place] [address] PCP - General Family Medicine 12/02/22 Body Mechanic Relationship Specialty Start Date End Date Nikky Pillai [address] [place] [address] PCP - General Family Medicine 12/02/22 Body Mechanic Relationship Specialty Start Date End Date Nikky Pillai [address] [place] [address] PCP - General 06/08/02 Body Mechanic Relationship Specialty Start Date End Date Nikky Pillai [address] [place] [address] PCP - General Family Medicine 12/02/22 Body Mechanic Relationship Specialty Start Date End Date Nikky Pillai [address] [place] [address] PCP - General Family Medicine 12/02/22 Body Mechanic Relationship Specialty Start Date End Date Nikky Pillai [address] [place] [address] PCP - General Family Medicine 12/02/22 Body Mechanic Relationship Specialty Start Date End Date Nikky Pillai [address] [place] [address] PCP - General Family Medicine 12/02/22 Body Mechanic Relationship Specialty Start Date End Date Nikky Pillai [address] [place] [address] PCP - General Family Medicine 12/02/22 Body Mechanic Relationship Specialty Start Date End Date Nikky Pillai [address] [place] [address] PCP - General Family Medicine 12/02/22 Body Mechanic Relationship Specialty Start Date End Date Nikky Pillai [address] [place] [address] PCP - General Family Medicine 12/02/22 Body Mechanic Relationship Specialty Start Date End Date GeovannabruceNikky ventura [address] [place] [address] PCP - General Family Medicine 12/02/22 Body Mechanic Relationship Specialty Start Date End Date Nikky Pillai [address] [place] [address] PCP - General Family Medicine 12/02/22 Body Mechanic Relationship Specialty Start Date End Date Nikky Pillai [address] [place] [address] PCP - General 06/08/02 Body Mechanic Relationship Specialty Start Date End Date Nikky Pillai [address] [place] [address] PCP - General 06/08/02 Body Mechanic Relationship Specialty Start Date End Date Nikky Pillai [address] [place] [address] PCP - General Family Medicine 12/02/22 Body Mechanic Relationship Specialty Start Date End Date Nikky Pillai [address] [place] [address] PCP - General Family Medicine 12/02/22 Body Mechanic Relationship Specialty Start Date End Date Nikky Pillai [address] [place] [address] PCP - General Family Medicine 12/02/22 Body Mechanic Relationship Specialty Start Date End Date Nikky Pillai [address] [place] [address] PCP - General Family Medicine 12/02/22 Body Mechanic Relationship Specialty Start Date End Date Nikky Pillai [address] [place] [address] PCP - General Family Medicine 12/02/22 Body Mechanic Relationship Specialty Start Date End Date Nikky Pillai [address] [place] [address] PCP - General Family Medicine 12/02/22 Body Mechanic Relationship Specialty Start Date End Date Nikky Pillai [address] [place] [address] PCP - General Family Medicine 12/02/22 Body Mechanic Relationship Specialty Start Date End Date Nikky Pillai [address] [place] [address] PCP - General Family Medicine 12/02/22 Body Mechanic Relationship Specialty Start Date End Date Nikky Pillai [address] [place] [address] PCP - General Family Medicine 12/02/22 Body Mechanic Relationship Specialty Start Date End Date Nikky Pillai [address] [place] [address] PCP - General Family Medicine 12/02/22 Body Mechanic Relationship Specialty Start Date End Date Nikky Pillai [address] [facility] [address] [place] [address] PCP - General Family Medicine 12/02/22 Body Mechanic Relationship Specialty Start Date End Date Nikky Pillai [address] [facility] [address] [place] [address] PCP - General Family Medicine 12/02/22 Body Mechanic Relationship Specialty Start Date End Date Nikky Pillai [address] [place] [address] PCP - General Family Medicine 12/02/22 Body Mechanic Relationship Specialty Start Date End Date Nikky Pillai [address] [place] [address] PCP - General Family Medicine 12/02/22 Body Mechanic Relationship Specialty Start Date End Date Nikky Pillai [address] [place] [address] PCP - General Family Medicine 12/02/22 Body Mechanic Relationship Specialty Start Date End Date Nikky Pillai [address] [place] [address] PCP - General Family Medicine 12/02/22 Body Mechanic Relationship Specialty Start Date End Date Nikky Pillai [address] [place] [address] PCP - General Family Medicine 12/02/22 Body Mechanic Relationship Specialty Start Date End Date Nikky Pillai [address] [place] [address] PCP - General Family Medicine 12/02/22 Body Mechanic Relationship Specialty Start Date End Date Nikky Pillai [address] [place] [address] PCP - General Family Medicine 12/02/22 Body Mechanic Relationship Specialty Start Date End Date Nikky Pillai [address] [place] [address] PCP - General Family Medicine 12/02/22 Body Mechanic Relationship Specialty Start Date End Date Nikky Pillai [address] [place] [address] PCP - General Family Medicine 12/02/22 Body Mechanic Relationship Specialty Start Date End Date Nikky Pillai [address] [place] [address] PCP - General Family Medicine 12/02/22 Body Mechanic Relationship Specialty Start Date End Date Nikky Pillai [address] [place] [address] PCP - General Family Medicine 02/18/25 Body Mechanic Relationship Specialty Start Date End Date Nikky Pillai [address] [place] [address] PCP - General Family Medicine 02/18/25 Body Mechanic Relationship Specialty Start Date End Date Rosas Nikky Yadiel [address] [place] [address] PCP - General Family Medicine 02/18/25 Body Mechanic Relationship Specialty Start Date End Date Nikky Pillai [address] [place] [address] PCP - General Family Medicine 02/18/25 Body Mechanic Relationship Specialty Start Date End Date Nikky Pillai [address] [place] [address] PCP - General Family Medicine 02/18/25 Body Mechanic Relationship Specialty Start Date End Date Nikky Pillai [address] [place] [address] PCP - General Family Medicine 02/18/25 Body Mechanic Relationship Specialty Start Date End Date Nikky Pillai [address] [place] [address] PCP - General Family Medicine 12/02/22 02/17/25 Body Mechanic Relationship Specialty Start Date End Date Nikky Pillai [address] [place] [address] PCP - General Family Medicine 02/18/25 Body Mechanic Relationship Specialty Start Date End Date Nikky Pillai [address] [place] [address] PCP - General Family Medicine 02/18/25 Body Mechanic Relationship Specialty Start Date End Date Nikky Pillai [address] [place] [address] PCP - General Family Medicine 02/18/25 Reason for Visit (unrecogniz ed section and content) Reason Comments Procedure Botulinum Toxin Injection Specialty Diagnoses / Procedures Referred By Contac t Referred To Contact Diagnoses 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 Iron Krishnan APRN - PROFESSOR OF VOICE [address] [facility] [address] [place] [address] Phone: tel: fax: Referral ID Status Reason Start Date Expiration Date V isits Requested Visits Authorized [id number] Pending Review 01/04/2025 12/30/2025 1 1 Reason Comments Procedure Specialty Diagnoses / Procedures Referred By Contac t Referred To Contact Diagnoses 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 Iron Krishnan APRN - PROFESSOR OF VOICE [address] [facility] [address] [place] [address] Referral ID Status Reason Start Date Expiration Date Visits Re quested Visits Authorized [id number] Closed 07/12/2024 07/07/2025 1 1 Reason Comments Botulinum Toxin Injection Procedure Specialty Diagnoses / Procedures Referred By Contac t Referred To Contact Diagnoses 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 Lorenzo Lr MD [address] [facility] [address] [place] [address] Referral ID Status Reason Start Date Expiration Date V isits Requested Visits Authorized [id number] Pending Review 11/12/2023 11/06/2024 1 1 Reason Comments OP Infusion Specialty Diagnoses / Procedures Referred By Contac t Referred To Contact Diagnoses Classical migraine with intractable migraine 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 Lorenzo Lr MD [address] [facility] [address] [place] [address] [facility] [address] [place] [address] Referral ID Status Reason Start Date Expiration Date V isits Requested Visits Authorized [id number] Authorized 12/25/2022 12/25/2023 999 999 Reason Comments Follow-up Syncope, Migraines Reason Comments New Patient Ref Dr. Lr/ Brisa pe and collapse Specialty Diagnoses / Procedures Referred By Contac t Referred To Contact Neurology Diagnoses Syncope and collapse Autonomic dysfunction Procedures VT OFFICE/OUTPATIENT NEW HIGH MDM 60-74 MINUTES Lorenzo Lr MD [address] [address] Venu Mccall MD [address] [place] [address] Referral ID Status Reason Start Date Expiration Date Visits Requested Visits Authorized [id number] Pending Review Specialty Services Required 12/02/2022 12/02/2023 1 1 Reason Onset Date Comments schedule infusions 01/30/2023 Reason Onset Date Comments Procedure 02/05/2023 Reason Onset Date Comments EMU 03/24/2023 Reminder call Reason Comments Med Refill Specialty Diagnoses / Procedures Referred By Contac t Referred To Contact Radiology Diagnoses Syncope and collapse Autonomic dysfunction Procedures MR brain w and wo contrast Venu Mccall MD [address] [place] [address] [address] [place] [address] Referral ID Status Reason Start Date Expiration Date Visits Re quested Visits Authorized [id number] Closed 02/03/2023 08/02/2023 1 1 Reason Comments Botulinum Toxin Injection Referral ID Status Reason Start Date Expiration Date V isits Requested Visits Authorized [id number] Pending Review 04/08/2023 10/05/2023 1 1 Reason Onset Date Comments Med Refill 05/01/2023 Vyepti 300mg josie roved Reason Comments Procedure Migraine infusion Reason Comments Procedure DHE migraine infusio n Reason Comments Procedure DHE migraine infuion Reason Onset Date Comments Med Refill 08/05/2023 Reason Comments Procedure Headache infusion Specialty Diagnoses / Procedures Referred By Contac t Referred To Contact Diagnoses 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 Lorenzo Lr MD [address] [facility] [address] [place] [address] [facility] [address] [facility] [place] [address] Referral ID Status Reason Start Date Expiration Date V isits Requested Visits Authorized [id number] Pending Review 08/05/2023 02/01/2024 1 1 Referral ID Status Reason Start Date Expiration Date V isits Requested Visits Authorized [id number] Pending Review 08/15/2023 02/11/2024 1 1 Specialty Diagnoses / Procedures Referred By Contac t Referred To Contact BR IMAGING Diagnoses Visit for screening mammogram Procedures ISAIAS SCREENING SCREENING MAMMOGRAPHY BI 2-VIEW [facility] Ant Xavier MD [address] [place] [address] [facility] [address] [place] [address] Referral ID Status Reason Start Date Expiration Date V isits Requested Visits Authorized [id number] Closed Auto-Generate d Referral 01/10/2023 10/19/2023 1 1 Specialty Diagnoses / Procedures Referred By Contac t Referred To Contact Diagnoses Episodic migraine Classical migraine with intractable migraine 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 Lorenzo Lr MD [address] [facility] [address] [place] [address] 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 Reason Onset Date Comments Med Refill 01/03/2024 Reason Onset Date Comments Medication Problem 12/23/2023 Reason Onset Date Comments Med Refill 01/27/2024 Reason Comments Botulinum Toxin Injection Procedure Referral ID Status Reason Start Date Expiration Date V isits Requested Visits Authorized [id number] Pending Review 02/06/2024 01/31/2025 1 1 Reason Onset Date Comments Med Refill 03/16/2024 Reason Onset Date Comments Letter for School/Work 04/05/2024 Reason Onset Date Comments Med Refill 04/07/2024 Reason Onset Date Comments Reschedule Procedure 04/21/2024 Reason Onset Date Comments Appointment 05/31/2024 Reschedule Reason Onset Date Comments Med Refill 06/14/2024 Specialty Diagnoses / Procedures Referred By Rusty t Referred To Contact Diagnoses Episodic migraine Classical migraine with intractable migraine 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 Lorenzo Lr MD [address] [facility] [address] [place] [address] Phone: tel: fax: [address] [place] [address] [place] [address] Phone: tel: fax: Reason Onset Date Comments Med Refill 09/30/2024 Reason Comments New Patient Migraine Reason Onset Date Comments Results 12/04/2022 Reason Onset Date Comments Orders 01/01/2023 Specialty Diagnoses / Procedures Referred By Rusty t Referred To Contact Diagnoses 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 Iron Krishnan, CHAD - CHARO [address] [facility] [address] [place] [address] Phone: tel: fax: Referral ID Status Reason Start Date Expiration Date Visits Re quested Visits Authorized [id number] Closed 10/04/2024 09/29/2025 1 1 Specialty Diagnoses / Procedures Referred By Rusty t Referred To Contact Diagnoses Classical migraine with intractable migraine 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 Lorenzo Lr MD [address] [facility] [address] [place] [address] Phone: tel: fax: [facility] [address] [place] [address] Phone: tel: Reason Onset Date Comments Appointment 11/11/2024 Reason Comments Follow-up Reason Onset Date Comments Prior Authorization 11/17/2024 Ubrogepant ( Ubrelvy) 100 MG tablet Reason Onset Date Comments Prior Authorization 11/25/2024 Vyepti Reason Onset Date Comments Prior Authorization 11/09/2024 Vyepti Reason Onset Date Comments Med Refill 01/04/2025 Reason Onset Date Comments Med Refill 01/19/2025 Reason Comments Follow-up Reason Onset Date Comments Med Refill 03/05/2025 Reason Onset Date Comments Med Refill 03/07/2025 Reason Comments Procedure Headache infusion Specialty Diagnoses / Procedures Referred By Rusty paulino Referred To Contact Diagnoses 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 Iron Krishnan, CHAD - PROFESSOR OF VOICE [address] [address] Phone: tel: fax: Referral ID Status Reason Start Date Expiration Date Visits Re quested Visits Authorized [id number] Closed 04/06/2025 04/01/2026 1 1 Reason Comments Procedure HEADACHE INFUSION FOR RECORDS PERTAINING TO PATIENTS WHO ARE OR HAVE BEEN ENROLLED IN A CHEMICAL DEPENDENCY/SUBSTANCEABUSE PROGRAM, SOME INFORMATION MAY BE OMITTED. This clinical summary was aggregated from multiple sources. Caution should be exercised in using it in the provision of clinical care. This summary normalizes information from multiple sources, and as a consequence, information in this document may materially change the coding, format and clinical context of patient data. In addition, data may be omitted in some cases. CLINICAL DECISIONS SHOULD BE BASED ON THE PRIMARY CLINICAL RECORDS. [employer] provides no warranty or guarantee of the accuracy or completeness of information in this document."
[2025-04-18 01:33] VITALS: BP 121/75; PULSE 98; RESP 18; TEMP 36.7; O2SAT 98
== END 2025-04-18 01:34 | disposition home or self-care (01) ==
PROVIDERS: Emergency Provider Emergency Medicine; PCP Family Medicine; Visit Provider Emergency Medicine
DX: S82.65XA Nondisplaced fracture of lateral malleolus of left fibula, initial encounter for closed fracture (principal); W18.42XA Slipping, tripping and stumbling without falling due to stepping into hole or opening, initial encounter; F41.9 Anxiety disorder, unspecified; G43.909 Migraine, unspecified, not intractable, without status migrainosus; Z79.899 Other long term (current) drug therapy
CPT/HCPCS: 73610; 73630; 99284; A4216

== ENCOUNTER → 2025-07-27 | Outpatient (CLI) | payer OTHER, SELFPAY ==
[2025-07-27 15:55] LABS: Anion Gap 11 (5-15); BUN 20 mg/dL (4-19); BUN/Creat Ratio 17.6 RATIO (10-20); Calcium,Total 10.0 mg/dL (7.6-11.0); Carbon Dioxide 19.4 mmol/L (21.0-32.0); Chloride 109 mmol/L (98-108); Cholesterol 262 mg/dL (<=200); Glucose 87 mg/dL (70-99); Low Density Lipoprotein Calc. 182 mg/dL; Potassium 5.2 mmol/L (3.3-5.1); Triglycerides 106 mg/dL; Very Low Density Lipoprotein 21 mg/dL (5-40); cholesterol:hdl ratio screen 4.43
== END | disposition home or self-care (01) ==
LOC: MFPLAB 11:23
PROVIDERS: Visit Provider Family Medicine
DX: Z00.00 Encounter for general adult medical examination without abnormal findings (principal)
CPT/HCPCS: 36415; 80048; 80061

== ENCOUNTER 2025-08-23 05:59 | Day surgery (SDC) | payer OTHER, SELFPAY ==
--- NOTE | 2025-08-18 16:16 | PAT.ANESEVAL ---
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 When Was Last Pacemaker Check QUESTION #4 FULL TEXT: You/Your Family Experience fever (hyperthermia) with Anesthesia Last Oral Intake Last Oral intake: Last Oral Intake NPO since Meds taken in AM with sips of water? 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 Female Yes 08/18/25 12:48 HX of Motion Sickness No 08/18/25 12:48 HX of N/V After Surgery No 08/18/25 12:48 Non-Smoker Yes 08/18/25 12:48 Duration of Surgery greater No 08/18/25 12:48 than 60 minutes Number of Risk Factors 2 08/18/25 12:48 PONV Score Moderate Risk 08/18/25 12:48 Height & Weight Height & Weight: Anesthesia: Height & Weight Height 5 ft 2 in 04/17/25 22:58 Respiratory Assessment Respiratory Assessment - industrial roof plumber: Respiratory Tract Infection Hx - industrial roof plumber Hx Respiratory Tract Infection No 08/18/25 12:48 STOP Sleep Apnea STOP Sleep Apnea - industrial roof plumber: STOP Sleep Apnea - industrial roof plumber Hx Hypertension No 08/18/25 12:48 Hx Sleep Apnea No 08/18/25 12:48 CPAP No 08/18/25 12:48 BIPAP No 08/18/25 12:48 Do you snore loudly (louder No 08/18/25 12:48 than talking or can be heard Do you often feel tired/ No 08/18/25 12:48 fatigued/ sleepy during daytime? Has anyone observed you stop No 08/18/25 12:48 breathing during sleep? STOP Results Negative 08/18/25 12:48 QUESTION #5 FULL TEXT : Do you snore loudly (louder than talking or can be heard through closed doors)? Tobacco Use History Tobacco Use History - industrial roof plumber: Tobacco Use History - industrial roof plumber Tobacco Use Non-smoker 09/15/20 13:54 Smoking Status Never smoker 08/18/25 12:48 Hx Tobacco Use No 08/18/25 12:48 Years Smoking Packs Smoked per Day Smoking Cessation Date was within the last 15 years Hx Smoking Cessation Date Hx Smoking Cessation Counseling Hematologic Medial History Hematologic Hx - industrial roof plumber: Hematologic Medical Hx - imager Hx of Blood Transfusion No 08/18/25 12:48 Hx of Transfusion in last 3 No 08/18/25 12:48 Months Date of Last Transfusion (if within last 3 months) Ever experience any problems No 08/18/25 12:48 with transfusion(s)? Specify any problems Hx of Preganancy in last 3 No 08/18/25 12:48 Months Nurse Filling Out Transfusion [email or web address] 08/18/25 12:48 & Questions: Date: 08/18/25 08/18/25 12:48 Time: 12:50 08/18/25 12:48 Patient unable to answer at this time (ie. confused, unrespo /Reproduction History /Reproductive History - industrial roof plumber: /Reproductive Hx- industrial roof plumber Hx Now Gestational Age (in weeks): EDC: Hx Hx Para Hx Section SAB No 08/18/25 12:48 PFSH Medical History History of Clostridium difficile infection Anxiety Difficulty swallowing Port-A-Cath in place Right upper lobe pulmonary nodule Acute maxillary sinusitis, unspecified Contact with or exposure to other viral diseases URI (upper respiratory infection) Headache, migraine Alcohol use Easy bruising Blackout Syncope Non-smoker History of echocardiogram History of Holter monitoring Cardiology follow-up encounter Anxiety Insomnia Hemiplegic migraine Bradycardia Mycobacterial pneumonia DUB (dysfunctional uterine bleeding) Migraines History of kidney stones Choledocholithiasis Cholelithiasis Home Medications ?Medication ?Instructions ?Recorded ?Last Taken ?Type cholecalciferol (vitamin D3) 25 1,000 units PO DAILY supplement 12/25/18 12/18/22 History mcg (1,000 unit) tablet tizanidine 4 mg capsule 4 mg PO DAILY PRN PRN Migraine 12/25/18 02/20/22 History Symptoms magnesium oxide 500 mg capsule 500 mg PO BID supplement 11/11/19 12/18/22 History aspirin 81 mg tablet,delayed 81 mg PO DAILY blood thinner 02/13/22 08/16/25 History release eptinezumab-jjmr 100 mg/mL 100 mg .Route [id number] migraines 02/13/22 09/25/22 History intravenous solution (Vyepti) levonorgestrel (Mirena) 1 device intrauterine ONCE 02/13/22 02/20/22 History control omega-3 fatty acids-vitamin E 1,000 cap PO DAILY supplement 02/18/22 12/18/22 History 1,000 mg capsule promethazine 25 mg tablet 25 mg PO PRN PRN Nausea 02/18/22 02/20/22 History Zyrtec 20 mg PO QHS allergies 12/18/22 12/17/22 History levomefolate calcium 15 mg tablet 15 mg PO DAILY supplement 12/18/22 12/18/22 History (L-Methylfolate) suvorexant 20 mg tablet (Belsomra) 20 mg PO HS 01/13/23 Unknown History famotidine 20 mg tablet 20 mg PO QHS #30 tabs 05/02/25 Unknown Rx linaclotide 145 mcg capsule 145 mcg PO DAILY #90 caps 07/13/25 Unknown Rx (Linzess) onabotulinumtoxinA 100 unit 10 unit IM ONCE 07/27/25 Unknown History solution for injection (Botox) pantoprazole 40 mg tablet,delayed 40 mg PO QDAY #90 tabs 08/10/25 Unknown Rx release DHE INFUSION 1 dose IV Q1M 08/18/25 Unknown History hydroxyzine HCl 25 mg tablet 25 mg PO QHS 08/18/25 Unknown History rosuvastatin 5 mg tablet 5 mg PO DAILY 08/18/25 Unknown History topiramate 100 mg tablet 100 mg PO DAILY 08/18/25 Unknown History Allergy/AdvReac Type Severity Reaction Status Date / Time gabapentin AdvReac Intermediate Swelling Verified 08/18/25 12:42 erythromycin base AdvReac Nausea Verified 08/18/25 12:42 (Erythromycin Base) hydrocodone bitartrate (From AdvReac Other Verified 08/18/25 12:42 Vicodin) Family History Father MVP (mitral valve prolapse) Surgical History (Updated 08/18/25 @ 12:53 by Gordon De La Garza) Hx laparoscopic cholecystectomy History of arthroscopy of shoulder History of cystoscopy History of esophagogastroduodenoscopy (EGD) History of lithotripsy H/O unilateral oophorectomy History of bilateral salpingectomy History of cholecystectomy Social History household members: spouse housing: house Smoking Status: Never smoker alcohol intake: never substance use type: does not use Audit: Pertinent Findings Pertinent Findings EKG Perinent findings: December 19, 2021. Sinus rhythm with short [place] interval. Echo (EF%) pertinent findings: March 12, 2022. EF of 55%. No aortic stenosis noted. Consult pertinent findings: February 20, 2022. Dr. Patterson. 1. Bradycardia-mild asymptomatic bradycardia. Continue current medications. Will obtain a echocardiogram for baseline. (See above) Additional pertinent findings: Holter monitor December 20, 2021. Sinus rhythm with rare PVC. Sinus bradycardia rate of 37 during the night hours. Recommendation Anesthesia Recommendation Anesthesia recommendation: OPTIMIZED for anesthesia
[2025-08-23] VITALS (10 sets, daily range): BP systolic 93–155; BP diastolic 58–89; PULSE 50–79; RESP 16; TEMP 36.2–36.6; O2SAT 100; BMI 22.6
--- NOTE | 2025-08-23 06:32 | PCM.HP.STD ---
HPI - General General Date of Admission: 08/23/25 Date of Service: 08/23/25 HPI Narrative AKIL REYEZ, is a 50 F who presents [Chief Complaint: flatulence BGI established in 2021 for persistent hiccups. Workup consistent with gastroparesis, abnormal esophageal motility and Barretts. Hospitalized in the past due to ileus. EGD 04.07.24 Normal esophagus. Chronic gastritis. Injected with botulinum toxin. No gross lesions in the first portion of the duodenum. No specimens collected. Last office visit 01/20/2025 with increased stress in her personal life causing a flare in her GI symptoms. Patient having nausea, epigastric pain and hoarse voice in the mornings. OV 07/27/25 Pt having excessive gas, increased stool frequency and soft stools over the past month. Pt having a few bowel movements per day that are typically soft. She feels she is having a complete bowel movement but then will have a few small ons throughout the day. She has not changed her diet or any medications. No matter what she eats she will have gas. SHe continues with Linzess 145 mcg daily. Pt has never had a colonposcy. SHe denies family hx of colon cancer. She denies n/v, constipation, diarrhea or blood in her stool. [facility] Medical History History of Clostridium difficile infection Anxiety Difficulty swallowing Port-A-Cath in place Right upper lobe pulmonary nodule Acute maxillary sinusitis, unspecified Contact with or exposure to other viral diseases URI (upper respiratory infection) Headache, migraine Alcohol use Easy bruising Blackout Syncope Non-smoker History of echocardiogram History of Holter monitoring Cardiology follow-up encounter Anxiety Insomnia Hemiplegic migraine Bradycardia Mycobacterial pneumonia DUB (dysfunctional uterine bleeding) Migraines History of kidney stones Choledocholithiasis Cholelithiasis Home Medications ?Medication ?Instructions ?Recorded ?Last Taken ?Type cholecalciferol (vitamin D3) 25 1,000 units PO DAILY supplement 12/25/18 12/18/22 History mcg (1,000 unit) tablet tizanidine 4 mg capsule 4 mg PO DAILY PRN PRN Migraine 12/25/18 02/20/22 History Symptoms magnesium oxide 500 mg capsule 500 mg PO BID supplement 11/11/19 12/18/22 History aspirin 81 mg tablet,delayed 81 mg PO DAILY blood thinner 02/13/22 08/16/25 History release eptinezumab-jjmr 100 mg/mL 100 mg .Route [id number] migraines 02/13/22 09/25/22 History intravenous solution (Vyepti) levonorgestrel (Mirena) 1 device intrauterine ONCE 02/13/22 02/20/22 History control omega-3 fatty acids-vitamin E 1,000 cap PO DAILY supplement 02/18/22 12/18/22 History 1,000 mg capsule promethazine 25 mg tablet 25 mg PO PRN PRN Nausea 02/18/22 02/20/22 History Zyrtec 20 mg PO QHS allergies 12/18/22 12/17/22 History levomefolate calcium 15 mg tablet 15 mg PO DAILY supplement 12/18/22 12/18/22 History (L-Methylfolate) suvorexant 20 mg tablet (Belsomra) 20 mg PO HS 01/13/23 Unknown History famotidine 20 mg tablet 20 mg PO QHS #30 tabs 05/02/25 Unknown Rx linaclotide 145 mcg capsule 145 mcg PO DAILY #90 caps 07/13/25 Unknown Rx (Linzess) onabotulinumtoxinA 100 unit 10 unit IM ONCE 07/27/25 Unknown History solution for injection (Botox) pantoprazole 40 mg tablet,delayed 40 mg PO QDAY #90 tabs 08/10/25 Unknown Rx release DHE INFUSION 1 dose IV Q1M 08/18/25 Unknown History hydroxyzine HCl 25 mg tablet 25 mg PO QHS 08/18/25 Unknown History rosuvastatin 5 mg tablet 5 mg PO DAILY 08/18/25 Unknown History topiramate 100 mg tablet 100 mg PO DAILY 08/18/25 Unknown History Allergy/AdvReac Type Severity Reaction Status Date / Time gabapentin AdvReac Intermediate Swelling Verified 08/18/25 12:42 erythromycin base AdvReac Nausea Verified 08/18/25 12:42 (Erythromycin Base) hydrocodone bitartrate (From AdvReac Other Verified 08/18/25 12:42 Vicodin) Family History Father MVP (mitral valve prolapse) Surgical History Hx laparoscopic cholecystectomy History of arthroscopy of shoulder History of cystoscopy History of esophagogastroduodenoscopy (EGD) History of lithotripsy H/O unilateral oophorectomy History of bilateral salpingectomy History of cholecystectomy Social History household members: spouse housing: house Smoking Status: Never smoker alcohol intake: never substance use type: does not use ROS Constitutional Constitutional: Denies fatigue, fever(s), poor appetite, weight gain or weight loss Gastrointestinal Gastrointestinal: Denies belching, bloating, change in bowel habits, change in stool character, chewing difficulty, coffee ground emesis, constipation, cramping, diarrhea, dyspepsia, dysphagia, early satiety, excessive flatus, fecal incontinence, heartburn, hematemesis, hematochezia, hemorrhoids, loose stools, melena, nausea, odynophagia, rectal bleeding, tenesmus, vomiting or weight changes Physical Exam Const alert, oriented x3, no apparent distress and healthy appearing General Appearance: cooperative GI normal to inspection, nondistended, normoactive bowel sounds, soft to palpation, non-tender and non-distended Percussion: normal to percussion Rectal Exam: deferred Assessment & Plan Assessment/Plan (1) Encounter for screening colonoscopy: PLAN: Assessment and Plan Assessment and Plan (1) Gastroparesis: Status: Chronic Plan: Akil is a 50-year-old female patient here today for follow-up regarding her gastroparesis, constipation and excessive flatulence. Patient's gastroparesis is well-controlled at this time and she denies nausea or vomiting. She is having frequent soft bowel movements daily and excessive gas over the past month. She denies any medication, lifestyle or diet changes during this time. Patient has never had a screening colonoscopy and was agreeable to being scheduled for 1 today. I recommended patient to avoid dairy containing products to reduce bloating and gas. She may also take Gas-X as needed. She will continue Linzess 145 mcg daily. Will consider further treatment or workup pending results of colonoscopy. - Gastroparesis controlled - Avoid dairy to reduce gas - Take Gas-X as needed - Colonoscopy - Follow-up after procedure (2) Abdominal pain: Status: Acute (3) Constipation: Status: Chronic Qualifiers: Constipation type: slow transit constipation Qualified Code(s): K59.01 - Slow transit constipation
[2025-08-23] MEDS: Lactated Ringers 1,000 ML 15 ML IV (06:44)
--- NOTE | 2025-08-23 06:53 | PCM.PRE.AN2 ---
ASA Classification* ASA Classification ASA Classification: 3 Assessment & Plan Anesthesia* Anesthesia Assessment Anesthesia Assessment: Discussed sedation and/or anesthesia options, risks, benefits, and alternatives with patient/parents/legal guardian/POA. Questions invited. The patient/parents/legal guardian/POA seems to understand and agrees to proceed with anesthesia plan. Reviewed the physical assessment, medical history, allergy history and patient home medications list prior to surgery/procedure/anesthetic and documented any changes. Performed airway and anesthesia risk assessments. Anesthesia Type Anesthesia Type: MAC History Source History Obtained from:: Patient and Chart Anesthesia Focused Assessment* Temperature: 97.5 F Pulse Rate: 79 Blood Pressure: 155/89 Respiratory Rate: 16 Pulse Ox: 100 Oxygen Delivery Method: Room Air Airway Assessment Mouth opens: >3 cm Mallampati Score: III Teeth Condition: Intact Neck Range of motion (ROM): Full ROM Labs Anesthesia Preop lab: CBC WBC, (4.4-11.0) 8.2 K/mm3 12/21/22, 06:58 RBC, (4.2-5.4) 3.86 M/mm3 L 12/21/22, 06:58 Hgb, (12.0-15.0) 10.9 g/dL L 12/21/22, 06:58 Hct, (37-47) 34.3 % L 12/21/22, 06:58 Plt Count, (150-450) 134 K/mm3 L 12/21/22, 06:58 CHEMISTRY Potassium, (3.3-5.1) 5.2 mmol/L H 07/27/25, 11:23 Sodium, (133-145) 140 mmol/L 07/27/25, 11:23 Magnesium, (1.6-2.6) 2.4 mg/dL 12/19/22, 05:35 Phosphorus, (2.5-4.9) 2.9 mg/dL 12/19/22, 05:35 BUN, (4-19) 20 mg/dL H 07/27/25, 11:23 Creatinine, (0.70-1.20) 1.13 mg/dL 07/27/25, 11:23 Glucose, (70-99) 87 mg/dL 07/27/25, 11:23 POC Glucose, (74-106) 71 mg/dL L 12/18/22, 16:56 TSH, (0.358-3.74) 6.37 uIU/mL H 12/19/22, 05:35 COAG PT, (11.7-14.9) 12.4 SECONDS 09/21/20, 11:45 Urine Test Negative Negative 06/15/20, 09:40 Pre-Assessment Diagnosis/Proposed Procedure Planned Operative Procedure(s): COLONOSCOPY Anesthesia History Anesthesia History - supervisor plasma: Anesthesia History - supervisor plasma Hx Hospitalization No 08/18/25 12:48 Any Problems With Anesthesia No 08/18/25 12:48 Cholinesterase deficiency No 08/18/25 12:48 You/Your Family Experience No 08/18/25 12:48 fever (hyperthermia) with Relationship Recent Exposure to Contagious No 08/23/25 06:38 Disease Does patient have nerve No 08/18/25 12:48 stimulator Patient instructed to have device shut off --Does patient have Pacemaker No 08/23/25 06:38 or ICD? When Was Last Pacemaker Check QUESTION #4 FULL TEXT: You/Your Family Experience fever (hyperthermia) with Anesthesia Last Oral Intake Last Oral intake: Last Oral Intake NPO since 03:00 08/23/25 06:38 Meds taken in AM with sips of Yes 08/23/25 06:38 water? Meds patient instructed to protonix 08/23/25 06:38 take am of surgery Any additional information?: Yes NPO since: 03:00 (Patient finished her prep at 3 AM.) Meds taken in AM with sips of water?: Yes PONV PONV - supervisor plasma: PONV - supervisor plasma Female Yes 08/18/25 12:48 HX of Motion Sickness No 08/18/25 12:48 HX of N/V After Surgery No 08/18/25 12:48 Non-Smoker Yes 08/18/25 12:48 Duration of Surgery greater No 08/18/25 12:48 than 60 minutes Number of Risk Factors 2 08/18/25 12:48 PONV Score Moderate Risk 08/18/25 12:48 Height & Weight Height & Weight: Anesthesia: Height & Weight Height 5 ft 2 in 08/23/25 06:38 Weight: 56 kg 08/23/25 06:38 Body Mass Index (BMI) 22.6 08/23/25 06:38 Respiratory Assessment Respiratory Assessment - supervisor plasma: Respiratory Tract Infection Hx - supervisor plasma Hx Respiratory Tract Infection No 08/18/25 12:48 STOP Sleep Apnea STOP Sleep Apnea - supervisor plasma: STOP Sleep Apnea - supervisor plasma Hx Hypertension No 08/18/25 12:48 Hx Sleep Apnea No 08/18/25 12:48 CPAP No 08/18/25 12:48 BIPAP No 08/18/25 12:48 Do you snore loudly (louder No 08/18/25 12:48 than talking or can be heard Do you often feel tired/ No 08/18/25 12:48 fatigued/ sleepy during daytime? Has anyone observed you stop No 08/18/25 12:48 breathing during sleep? STOP Results Negative 08/18/25 12:48 QUESTION #5 FULL TEXT : Do you snore loudly (louder than talking or can be heard through closed doors)? 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 Specify any problems Hx of Preganancy in last 3 No 08/18/25 12:48 Months Nurse Filling Out Transfusion [email or web address] 08/18/25 12:48 & Questions: Date: 08/18/25 08/18/25 12:48 Time: 12:50 08/18/25 12:48 Patient unable to answer at this time (ie. confused, unrespo /Reproduction History /Reproductive History - supervisor plasma: /Reproductive Hx- supervisor plasma Hx Now Gestational Age (in weeks): EDC: Hx Hx Para Hx Section SAB No 08/18/25 12:48 Active Medications Active Medications: Current Medications Generic Name Dose Route Start Last Admin Trade Name Freq PRN Reason Stop Dose Admin Lactated Ringer's 1,000 mls @ 15 mls/hr 08/23/25 06:15 08/23/25 06:44 IV 15 mls/hr .Q48H DADA Administration PFSH Medical History History of Clostridium difficile infection Anxiety Difficulty swallowing Port-A-Cath in place Right upper lobe pulmonary nodule Acute maxillary sinusitis, unspecified Contact with or exposure to other viral diseases URI (upper respiratory infection) Headache, migraine Alcohol use Easy bruising Blackout Syncope Non-smoker History of echocardiogram History of Holter monitoring Cardiology follow-up encounter Anxiety Insomnia Hemiplegic migraine Bradycardia Mycobacterial pneumonia DUB (dysfunctional uterine bleeding) Migraines History of kidney stones Choledocholithiasis Cholelithiasis Home Medications ?Medication ?Instructions ?Recorded ?Last Taken ?Type cholecalciferol (vitamin D3) 25 1,000 units PO DAILY supplement 12/25/18 12/18/22 History mcg (1,000 unit) tablet tizanidine 4 mg capsule 4 mg PO DAILY PRN PRN Migraine 12/25/18 02/20/22 History Symptoms magnesium oxide 500 mg capsule 500 mg PO BID supplement 11/11/19 12/18/22 History aspirin 81 mg tablet,delayed 81 mg PO DAILY blood thinner 02/13/22 08/16/25 History release eptinezumab-jjmr 100 mg/mL 100 mg .Route [id number] migraines 02/13/22 09/25/22 History intravenous solution (Vyepti) levonorgestrel (Mirena) 1 device intrauterine ONCE 02/13/22 02/20/22 History control omega-3 fatty acids-vitamin E 1,000 cap PO DAILY supplement 02/18/22 12/18/22 History 1,000 mg capsule promethazine 25 mg tablet 25 mg PO PRN PRN Nausea 02/18/22 02/20/22 History Zyrtec 20 mg PO QHS allergies 12/18/22 12/17/22 History levomefolate calcium 15 mg tablet 15 mg PO DAILY supplement 12/18/22 12/18/22 History (L-Methylfolate) suvorexant 20 mg tablet (Belsomra) 20 mg PO HS 01/13/23 Unknown History famotidine 20 mg tablet 20 mg PO QHS #30 tabs 05/02/25 Unknown Rx linaclotide 145 mcg capsule 145 mcg PO DAILY #90 caps 07/13/25 Unknown Rx (Linzess) onabotulinumtoxinA 100 unit 10 unit IM ONCE 07/27/25 Unknown History solution for injection (Botox) pantoprazole 40 mg tablet,delayed 40 mg PO QDAY #90 tabs 08/10/25 08/23/25 Rx release DHE INFUSION 1 dose IV Q1M 08/18/25 Unknown History hydroxyzine HCl 25 mg tablet 25 mg PO QHS 08/18/25 Unknown History rosuvastatin 5 mg tablet 5 mg PO DAILY 08/18/25 Unknown History topiramate 100 mg tablet 100 mg PO DAILY 08/18/25 Unknown History Allergy/AdvReac Type Severity Reaction Status Date / Time gabapentin AdvReac Intermediate Swelling Verified 08/23/25 06:37 erythromycin base AdvReac Nausea Verified 08/23/25 06:37 (Erythromycin Base) hydrocodone bitartrate (From AdvReac Other Verified 08/23/25 06:37 Vicodin) Family History Father MVP (mitral valve prolapse) Surgical History Hx laparoscopic cholecystectomy History of arthroscopy of shoulder History of cystoscopy History of esophagogastroduodenoscopy (EGD) History of lithotripsy H/O unilateral oophorectomy History of bilateral salpingectomy History of cholecystectomy Social History household members: spouse housing: house Smoking Status: Never smoker alcohol intake: never substance use type: does not use Review of Systems (Anesthesia) ROS Narrative System reviewed and no additional complaints, except as documented.
--- NOTE | 2025-08-23 07:51 | POSTOP.ANE_ITS ---
Anesthesia: Postop Eval I
--- NOTE | 2025-08-23 07:51 | OP.COLON_ITS ---
Patient Name: Stephanie Michelle
--- NOTE | 2025-08-23 07:51 | PCM.POST.ANE ---
Anesthesia: Postop Eval I Current Vital Signs Temperature: 97.2 F Pulse Rate: 68 Blood Pressure: 93/58 Respiratory Rate: 16 Pulse Ox: 100 Oxygen Delivery Method: Room Air Assessment Airway patent: Yes Spontaneous unlabored respirations: Yes Mental status: Awake and Calm nausea: No Vomiting: No Anesthesia Complication: No Fluid Hydration Crystalloid volume administer (ml): 500 Total IV fluid infused: 500 Progress Note Anesthesia document: Postop Eval 1 completed: Yes
[2025-08-23] MEDS: 0.9% Saline Lock 10 ML Syringe IV (08:14)
--- NOTE | 2025-08-23 08:43 | POSTOPAN2_ITS ---
Anesthesia Postop Eval I Sum
--- NOTE | 2025-08-23 08:43 | PCM.POSTANE2 ---
Anesthesia Postop Eval I Sum Postop Eval Completion status Anesthesia document: Postop Eval 1 completed: Yes Anesthesia Postop Eval I Summary Anesthesia Postop Eval I Summary: Anesthesia Postop Eval I: Assessment Summary Airway patent Yes 08/23/25 07:52 [email or web address] Spontaneous unlabored Yes 08/23/25 07:52 [email or web address] respirations Mental status Awake,Calm 08/23/25 07:52 [email or web address] nausea No 08/23/25 07:52 [email or web address] Vomiting No 08/23/25 07:52 [email or web address] Anesthesia Postop Eval I: Fluid Summary Crystalloid volume administer 500 08/23/25 07:52 [email or web address] (ml) Colloids volume administered ( ml) Blood Product volume administered (ml) Total IV fluid infused 500 08/23/25 07:52 [email or web address] Anesthesia Postop Eval I: Summary Notes Anesthesia Complication No 08/23/25 07:52 [email or web address] Anesthesia Complication Comment: Post-operative progress note Anesthesia: Postop Eval II Evaluation Mental status: Awake and Calm Pain Level: 0 nausea: No Vomiting: No Complications Anesthesia Complication: No
== END 2025-08-23 08:35 | disposition home or self-care (01) ==
LOC: EN 05:59 → AC 06:01
PROVIDERS: PCP Family Medicine; Referring Provider Family Medicine; Visit Provider Internal Medicine Gastroenterology
PROC: 0DJD8ZZ Inspection of Lower Intestinal Tract, Via Natural or Artificial Opening Endoscopic (ICD-10-PCS; CPT 45378; principal; 2025-08-23 06:55)
DX: Z12.11 Encounter for screening for malignant neoplasm of colon (principal); K31.84 Gastroparesis; Z79.82 Long term (current) use of aspirin; Z79.899 Other long term (current) drug therapy; K59.01 Slow transit constipation
CPT/HCPCS: G0121; A4216; J2405